=== PATIENT | male | born 1965 | race Caucasian/White ===

== ENCOUNTER 2017-09-20 08:27 | Emergency (ER) | payer OTHER ==
--- OUTSIDE RECORDS SUMMARY | 2017-09-20 08:30 | XMS REPORT | Clinical Summary ---
:1965 Author Organization [facility] Address [address] [place] [address] Phone Care Team Providers Name Role Phone Unavailable Primary Care Provider Unavailable Allergies No Known Allergies Current Medications Prescription Sig. Disp. Refills Start End Date Status Date ethambutol Take 1,200 mg by Active (MYAMBUTOL) 400 MG mouth daily. tablet fLUoxetine (PROZAC) Take 20 mg by Active 20 MG capsule mouth daily. furosemide (LASIX) Take 40 mg by Active 40 MG tablet mouth daily. albuterol HFA Inhale 2 puffs by Active (VENTOLIN HFA) 90 mouth via inhaler mcg/actuation every 6 (six) inhaler hours as needed for Wheezing. rifAMPin (RIFADIN) Take 600 mg by Active 300 MG capsule mouth daily. insulin detemir To use 50 units 45 mL 0 Active (LEVEMIR FLEXPEN) bid. 7 100 unit/mL (3 mL) InPn injection insulin lispro To use from 8 to 45 mL 3 Active (HUMALOG KWIKPEN) 22 units three 7 100 unit/mL InPn times a day. pen needle, To use 6 a day. 600 each 3 Active diabetic 31 gauge x 7 5/16" Ndle blood-glucose meter Use as instructed 400 each 3 11/08/19 Active kit Glucometer Test strips to use 4 a day # 400 Refills x 3 7 18 Lancets to use 4 a day # 400 Refills x 3. aspirin 81 MG Take 1 tablet (81 30 tablet 1 11/09/19 Active chewable tablet mg total) by mouth 7 18 daily. atorvastatin Take 1 tablet (40 30 tablet 1 11/09/19 Active (LIPITOR) 40 MG mg total) by mouth 7 18 tablet nightly. losartan (COZAAR) Take 1 tablet (25 30 tablet 1 11/09/19 Active 25 MG tablet mg total) by mouth 7 18 daily. metoprolol Take 1 tablet (25 60 tablet 1 11/09/19 Active (LOPRESSOR) 25 MG mg total) by mouth 7 18 tablet 2 (two) times daily. sacubitril-valsarta Take 1 tablet by 11/09/19 Discontinued n (ENTRESTO) 49-51 mouth 2 (two) 17 mg Tab times daily. insulin 70/30, Inject 20 Units 11/09/19 Discontinued insulin NPH-insulin subcutaneously 2 17 regular, (HUMULIN (two) times daily 70/30,NOVOLIN before meals. 70/30) 100 unit/mL (70-30) injection spironolactone Take 25 mg by 11/09/19 Discontinued (ALDACTONE) 25 MG mouth daily. 17 tablet metoprolol Take 25 mg by 11/09/19 Discontinued (TOPROL-XL) 25 MG mouth 2 (two) 17 24 hr tablet times daily. acetaminophen-codei Take 1 tablet by 30 tablet 0 11/19/19 ne (TYLENOL #3) mouth every 4 7 17 300-30 mg per (four) hours as tablet needed for up to 10 days. Max Daily Amount: 6 tablets Active Problems Problem Noted Date Urinary retention 11/03/2016 Hemothorax on left 11/02/2016 Peripheral vasodilation ([facility]) 11/02/2016 CAD (coronary artery disease) 11/01/2016 S/P CABG x 4 11/01/2016 Shock circulatory ([facility]) 11/01/2016 Sinus bradycardia 11/01/2016 Acute postoperative pain 11/01/2016 Acute blood loss anemia 11/01/2016 Acute pulmonary insufficiency following thoracic surgery ([facility]) 11/01/2016 Hypovolemia 11/01/2016 Hyperglycemia 11/01/2016 Coronary artery disease involving [place] coronary artery of [place] heart 10/27 without angina pectoris S/P carotid endarterectomy 10/27/2016 Systolic congestive heart failure ([facility]) 10/27/2016 S/P coronary artery stent placement 10/27/2016 Cardiomyopathy ([facility]) 10/27/2016 Essential hypertension 10/27/2016 Insulin dependent diabetes mellitus (HCC) 10/27/2016 COPD (chronic obstructive pulmonary disease) ([facility]) 10/27/2016 Current every day smoker 10/27/2016 Encounters Date Type Specialty Care Team Description 11/02/2016 Orders Only General Internal Medicine 11/01/2016 - Hospital Encounter Cardiology Jame Hurley Viral cardiomyopathy 11/08/2016 MD [place] ([facility]);Acute blood loss anemia;Acute postoperative pain;Acute pulmonary insufficiency following thoracic surgery ([facility]);Coronary artery disease involving [place] coronary artery of [place] heart with unstable angina pectoris (HCC);Chronic obstructive pulmonary disease, unspecified COPD type ([facility]);Current every day smoker;Hyperglycemia;H ypovolemia;Insulin dependent diabetes mellitus (HCC);S/P CABG x 4 11/01/2016 Orders Only General Internal Medicine 11/01/2016 Surgery Jame Hurely BYPASS,AORTO CORONARY MD [place] PATSY/SVG 10/26/2016 Hospital Encounter Jame Hurley MD 10/26/2016 Office Visit Cardiology Jame Hurley artery MD [place] disease involving [place] heart without angina pectoris, unspecified vessel or lesion type (Primary Dx);Chronic systolic congestive heart failure (HCC);Essential hypertension;Coronary artery disease involving [place] coronary artery of [place] heart without angina pectoris;S/P carotid endarterectomy;Systoli c congestive heart failure, unspecified congestive heart failure chronicity (HCC);S/P coronary artery stent placement 10/26/2016 Anesthesia Event Butch Sr AA 10/26/2016 Orders Only Cardiology Jame Hurley MD disease involving [place] heart without angina pectoris, unspecified vessel or lesion type;Chronic systolic congestive heart failure (HCC);Essential hypertension 10/26/2016 Orders Only General Internal Medicine after 09/19/2016 Social History Tobacco Use Types Packs/Day Years Used Date Current Every Day Smoker 0.5 30 Smokeless Tobacco: Former User Alcohol Use Drinks/Week oz/Week Comments No Sex Assigned at Date Recorded Not on file Last Filed Vital Signs Vital Sign Reading Time Taken Blood Pressure 125/60 11/08/2016 11:48 AM CDT Pulse 68 11/08/2016 11:48 AM CDT Temperature 36.2 C (97.2 F) 11/08/2016 11:48 AM CDT Respiratory Rate 18 11/08/2016 11:48 AM CDT Oxygen Saturation 93% 11/08/2016 11:48 AM CDT Inhaled Oxygen Concentration - - Weight 93.2 kg (205 lb 8 oz) 11/08/2016 2:14 AM CDT Height 177.8 cm (5' 10") 11/01/2016 6:00 AM CDT Body Mass Index 29.49 11/08/2016 2:14 AM CDT Plan of Treatment Health Maintenance Due Date Last Done Comments INFLUENZA VACCINE 03/20/2017 Procedures Procedure Name Priority Date/Time Associated Diagnosis Comments ENDARTERECTOMY,CORONARY 11/01/2016 8:00 AM CAOD CDT ENDOSCOPIC HARVEST,VEIN 11/01/2016 8:00 AM CAOD CDT BYPASS,AORTO CORONARY 11/01/2016 8:00 AM CAOD PATSY/SVG CDT after 09/19/2016 Results RHYTHM STRIP - SCAN (12/16/2016 9:11 AM)Only the most recent of2 resultswithin the time period is included.VASCULAR DIAGRAM -SCAN (11/09/2016 10:22 AM)POC- Glucose meter (11/08/2016 11:49 AM)Only the most recent of49 resultswithin the time period is included. Component Value Ref Range POC-Glucose Meter 297 (H)Comment: TESTED AT [address] 70 - 110 mg/[place] [address] Specimen Performing Laboratory Blood [address] [address] CBC (Hemogram only) (11/08/2016 4:45 AM)Only the most recent of3 resultswithin the time period is included. Component Value Ref Range WBC 7.3 4.0 - 10.0 K/L RBC 2.67 (L) 4.20 - 5.80 M/L Hemoglobin 8.5 (L) 13.0 - 16.8 GM/DL Hematocrit 24.8 (L) 40.0 - 50.0 % MCV 92.9 82.0 - 98.0 fL MCH 31.6 27.0 - 33.0 pg MCHC 34.0 32.0 - 36.0 GM/DL RDW 15.7 (H) 10.3 - 14.2 % Platelets 274 150 - 430 K/CU MM MPV 7.3 6.5 - 10.5 fL nRBC 0 0 - 0 /100 WBC Specimen Performing Laboratory Blood - Arm, Right [facility] [address] [place] [address] Narrative 0.00 Magnesium (11/08/2016 4:45 AM)Only the most recent of8 resultswithin the time period is included. Component Value Ref Range Magnesium 2.1 1.6 - 2.6 mg/dL Specimen Performing Laboratory Blood - Arm, [address] [address] Basic Metabolic Panel (11/08/2016 4:45 AM)Only the most recent of9 resultswithin the time period is included. Component Value Ref Range Sodium 137 136 - 145 meq/L Potassium 4.2 3.5 - 5.1 meq/L Chloride 100 98 - 107 meq/L CO2 28 22 - 29 meq/L BUN 18 7 - 21 mg/dL Creatinine 0.83 0.57 - 1.25 mg/dL Glucose 234 (H) 70 - 105 mg/dL Calcium 8.4 8.4 - 10.2 mg/dL EGFR 97Comment: ESTIMATED GFR IS NOT ACCURATE mL/min/1.73 sq m CREATININE CLEARANCE IN PREDICTING GLOMERULAR FILTRATION RATE. ESTIMATED GFR IS NOT APPLICABLE FOR DIALYSIS PATIENTS. Specimen Performing Laboratory Blood - Arm, [address] [address] Urinalysis w/Microscopic (11/07/2016 5:49 AM) Component Value Ref Range Color, UA Light Yellow Clarity, UA Clear Specific [place], UA 1.005 1.001 - 1.035 pH, UA 5.0 5.0 - 8.0 Protein, UA Negative Negative Glucose, UA Negative Negative Ketones, UA Negative Negative Bilirubin, UA Negative Negative Blood, UA Negative Negative Nitrite, UA Negative Negative Leukocytes, UA Small (A) Negative Urobilinogen, UA 0.2 0.2 - 1.0 mg/dL RBC, UA <1 /HPF WBC, UA 7 /HPF Squam Epithel, UA 2 /HPF Specimen Source Specimen Performing Laboratory Urine [address] [address] Prepare RBC (11/06/2016 5:51 PM) Component Value Ref Range Status CANCELED Blood Bank Product RED BLOOD CELLS CROSSMATCH COMPATIBLE Unit ABO A Pos UNIT NUMBER [id number]^RBC LEUKOREDUCED Status TRANSFUSED Blood Bank Product RED BLOOD CELLS PRODUCT CODE [id number] Specimen Performing Laboratory SAFETRACE [place] XR chest PA or AP 1 view in dept (11/06/2016 3:37 PM) Specimen Performing Laboratory GE RIS Narrative FINAL REPORT AP view of the chest dated 11/06/2016 COMPARISON: November 03, 2016 CLINICAL INFORMATION: SOB Comment:Heart is enlarged. There is prior sternotomy and bypass surgery. Pulmonary vasculature is unremarkable. Subsegmental atelectasis is seen in the left upper and lower lobe. The rest of the lungs are clear. No pulmonary infiltrate or pleural effusion is present. Previously noted right IJ central venous catheter and left chest tube have been removed. No pneumothorax is noted. Signed: Ezequiel Doherty MD Report Verified Date/Time:11/06/2016 16:53:27 Reading Location: [facility] [id number] Ortho Consult Reading Room Procedure Note Interface, External Ris In - 11/06/2016 4:55 PM CDT FINAL REPORT AP view of the chest dated 11/06/2016 COMPARISON: November 03, 2016 CLINICAL INFORMATION: SOB Comment: Heart is enlarged. There is prior sternotomy and bypass surgery. Pulmonary vasculature is unremarkable. Subsegmental atelectasis is seen in the left upper and lower lobe. The rest of the lungs are clear. No pulmonary infiltrate or pleural effusion is present. Previously noted right IJ central venous catheter and left chest tube have been removed. No pneumothorax is noted. Signed: Ezequiel Doherty MD Report Verified Date/Time: 11/06/2016 16:53:27 Reading Location: [facility] [id number] Ortho Consult Reading Room Prepare leuko-red RBC (11/06/2016 12:37 PM) Component Value Ref Range Unit ABO A Pos UNIT NUMBER [id number]^RBC LEUKOREDUCED Status READY Blood Bank Product RED BLOOD CELLS PRODUCT CODE [id number] CROSSMATCH COMPATIBLE Specimen Performing Laboratory Other [place] CBC with platelet count + automated diff (11/05/2016 3:33 AM)Only the most recent of6 resultswithin the time period is included. Component Value Ref Range WBC 6.9 4.0 - 10.0 K/L RBC 2.36 (L) 4.20 - 5.80 M/L Hemoglobin 7.8 (L) 13.0 - 16.8 GM/DL Hematocrit 21.7 (L) 40.0 - 50.0 % MCV 91.6 82.0 - 98.0 fL MCH 32.9 27.0 - 33.0 pg MCHC 35.9 32.0 - 36.0 GM/DL RDW 14.7 (H) 10.3 - 14.2 % Platelets 192 150 - 430 K/CU MM MPV 7.4 6.5 - 10.5 fL nRBC 0 0 - 0 /100 WBC % Neutros 67 % % Lymphs 23 % % Monos 7 % % Eos 4 % % Baso 1 % # Neutros 4.61 1.80 - 8.00 K/L # Lymphs 1.56 1.48 - 4.50 K/L # Monos 0.46 0.00 - 1.30 K/L # Eos 0.24 0.00 - 0.50 K/L # Baso 0.04 0.00 - 0.20 K/L Specimen Performing Laboratory Blood - Arm, [place] [id number] Narrative 0.00 CBC with platelet count + automated diff (11/05/2016 3:33 AM)Only the most recent of6 resultswithin the time period is included. Specimen Performing Laboratory Blood Narrative The following orders were created for panel order CBC with platelet count + automated diff. Procedure Abnormality Status --------- ------ CBC with platelet count ...[[id number]]AbnormalFinal result Please view results for these tests on the individual orders. 2D Echo W/Doppler(CW/PW/Color) (11/03/2016 3:08 PM) Specimen Performing Laboratory DIGISONICS Narrative Echocardiography Laboratory [address] [place] [address] Voice:[phone] Transthoracic Echocardiogram Pat.Name:SARAN MARGARITA ROD DOPat.ID:[id number] St.Date: 11/03/2016 Refer.MD:FEGHALI, SAYED SAMI Exam Time: 3:08:00 PMStudy Type:Echo Complete Height:70inWeight:200lb BSA: 2.09 m2 DOBAge:1965,51Y Sex: MALEBP:132/56 HR:70 bpmSonogrphr: Ileana Bruce JOSEPHINE Pat. Stat.:Inpatient Room:[facility] Reason for Study:Hypotension or hemodynamic instability History / Clinical:Chest pain, Congestive Heart Failure, COPD, Coronary artery disease, Diabetes, Dyspnea on exertion, Hyperlipidemia, Hypertension, Myocardial infarction, Shortness of breath, Smoker Procedures:2D ECHO W/ DOPPLER (CW/PW/COLOR), Definity contrast done Race: SUMMARY: Technically difficult exam. The LV endocardum is partially visualized by limited parasternal and limited apical views. LV endocardium is partiallyvisualized withIV contrast. Left ventricular chamber size (by PSLAX dimension) is normal (male - LVIDd4.2-5.8 cm). The following segment(s) appear akinetic: mid anterior, mid anteroseptal and all apical segments.. Estimated LVEF by qualitative assessment is moderately reduced (35-39%). The right ventricular chamber size and systolic function are within normal limits. Unable to estimate peak systolic PA pressure; inadequate TR velocity signal. The estimated RA pressure by IVC dynamics 5-10 mmHg. FINDINGS: LV: The LV endocardum is partially visualized by limited parasternaland limited apical views. Mild concentric LV hypertrophy.Left ventricular chamber size (by PSLAX dimension)is normal (male - LVIDd4.2-5.8 cm). Estimated LVEFby qualitative assessment is moderately reduced (35-39%).LV endocardium is partiallyvisualized with IV contrast.The following segment(s) appear akinetic: mid anterior,mid anteroseptal and all apical segments.. The othersegments are mildly hypokinetic. LA: LA size is normal (16-34 ml/m2). RV: The right ventricular chamber size and systolic function are withinnormal limits. RA: RA cavity size is normal. AV: Mild AoV cusp thickening. MV: Mild MV leaflet thickening. TV: TV is not well visualized. Unable to estimate peak systolic PApressure; inadequate TR velocity signal. PV: PV is not well visualized; function appears normal by Dopplervisualized. AO: Aortic root size (Sinus of Valsalva diameter) is normal. Systemic Veins: The estimated RA pressure by IVC dynamics 5-10 mmHg. Quality:Technically difficult exam. MEASUREMENTS: 2D LA Sng Plane LA Vol69.8 mlIndex 33.4 ml/m2 LA Area 21.5 cm2(8.8-23.4) Parasternal [place] Ao An 2.17 cm (1.4-2.6) LV%fs 36.6 %(25-46) Ao Rtd 3.4 cmLVPWd 1.22 cm IVSd1.41 cm LA Ds 4.85 cm (2.3-3.9)* LVIDd 5.58 cm (4.3-5.1)* LV Wmn 1.31 cm LVIDs 3.54 cm (2-4) Signed 11/04/2016 08:39 AM Yefri Skinner M.D. Procedure Note Interface, External Ris In - 11/04/2016 8:40 AM CDT Echocardiography Laboratory [address] [place] [id number] Voice: [phone] Transthoracic Echocardiogram Pat.Name: SARAN MARGARITA ROD DOPat.ID: [id number] .Date: 11/03/2016 Refer.MD: CANELO HERNANDEZ Exam Time: 3:08:00 PM Study Type:Echo Complete Height: 70in Weight: 200lb BSA: 2.09 m2 Age: 11 1965,51Y Sex: MALE BP: 132/56 HR: 70 bpm Sonogrphr: Ileana Bruce [facility] Pat. Stat.:Inpatient Room: [facility] Reason for Study:Hypotension or hemodynamic instability History / Clinical:Chest pain, Congestive Heart Failure, COPD, Coronary artery disease, Diabetes, Dyspnea on exertion, Hyperlipidemia, Hypertension, Myocardial infarction, Shortness of breath, Smoker Procedures:2D ECHO W/ DOPPLER (CW/PW/COLOR), Definity contrast done Race: SUMMARY: Technically difficult exam. The LV endocardum is partially visualized by limited parasternal and limited apical views. LV endocardium is partially visualized with IV contrast. Left ventricular chamber size (by PSLAX dimension) is normal (male - LVIDd 4.2-5.8 cm). The following segment(s) appear akinetic: mid anterior, mid anteroseptal and all apical segments.. Estimated LVEF by qualitative assessment is moderately reduced (35-39%). The right ventricular chamber size and systolic function are within normal limits. Unable to estimate peak systolic PA pressure; inadequate TR velocity signal. The estimated RA pressure by IVC dynamics 5-10 mmHg. FINDINGS: LV: The LV endocardum is partially visualized by limited parasternal and limited apical views. Mild concentric LV hypertrophy. Left ventricular chamber size (by PSLAX dimension) is normal (male - LVIDd 4.2-5.8 cm). Estimated LVEF by qualitative assessment is moderately reduced (35-39%). LV endocardium is partially visualized with IV contrast. The following segment(s) appear akinetic: mid anterior, mid anteroseptal and all apical segments.. The other segments are mildly hypokinetic. LA: LA size is normal (16-34 ml/m2). RV: The right ventricular chamber size and systolic function are within normal limits. RA: RA cavity size is normal. AV: Mild AoV cusp thickening. MV: Mild MV leaflet thickening. TV: TV is not well visualized. Unable to estimate peak systolic PA pressure; inadequate TR velocity signal. PV: PV is not well visualized; function appears normal by Doppler visualized. AO: Aortic root size (Sinus of Valsalva diameter) is normal. Systemic Veins: The estimated RA pressure by IVC dynamics 5-10 mmHg. Quality: Technically difficult exam. MEASUREMENTS: 2D LA Sng Plane LA Vol 69.8 ml Index 33.4 ml/m2 LA Area 21.5 cm2 (8.8-23.4) Parasternal [place] Ao An 2.17 cm (1.4-2.6) LV%fs 36.6 % (25-46) Ao Rtd 3.4 cm LVPWd 1.22 cm IVSd 1.41 cm LA Ds 4.85 cm (2.3-3.9)* LVIDd 5.58 cm (4.3-5.1)* LV Wmn 1.31 cm LVIDs 3.54 cm (2-4) Signed 11/04/2016 08:39 AM Yefri Skinner M.D. XR chest 1 view portable / bedside (11/03/2016 4:21 AM)Only the most recent of3 resultswithin the time period is included. Specimen Performing Laboratory GE RIS Impressions : Support Lines: Stable. Lungs and pleura: Unchanged airspace and pleural opacities. No pneumothorax. Heart and mediastinum: Stable contours. Stable surgical changes. Additional findings: None. Signed: JR Galileo, Priscilla CRISTINA Report Verified Date/Time:11/03/2016 04:51:34 Reading Location: [facility] Trans[facility] Reading Room Narrative FINAL REPORT RAD, CHEST, 1 VIEW, NON DEPT INDICATION: chest tubes in place, s/p cabg COMPARISON: Prior day's exam FINDINGS: Portable frontal view of the chest. Procedure Note Interface, External Ris In - 11/03/2016 4:53 AM CDT FINAL REPORT RAD, CHEST, 1 VIEW, NON DEPT INDICATION: chest tubes in place, s/p cabg COMPARISON: Prior day's exam FINDINGS: Portable frontal view of the chest. IMPRESSION : Support Lines: Stable. Lungs and pleura: Unchanged airspace and pleural opacities. No pneumothorax. Heart and mediastinum: Stable contours. Stable surgical changes. Additional findings: None. Signed: JR Gurrola Robert MD Report Verified Date/Time: 11/03/2016 04:51:34 Reading Location: [address] Transitional Reading Room 12 lead (11/02/2016 5:35 PM)Only the most recent of3 resultswithin the time period is included. Specimen Performing Laboratory GE MUSE Narrative Ventricular Rate 80 BPM Atrial Rate 80 BPM P-R Interval 112 ms QRS Duration 104 ms Q-T Interval 384 ms QTC Calculation(Bazett) 442 ms P [place] 60 degrees R [place] -3 degrees T [place] 61 degrees Normal sinus rhythm Inferior infarct (cited on or before 01-NOV-2016) T wave abnormality, consider lateral ischemia Abnormal ECG When compared with ECG of 01-NOV-2016 18:15, T wave inversion more evident in Lateral leads Confirmed by Jacki Solo Alireaz ([id number]) on 11/03/2016 1:21:49 PM Procedure Note Interface, External Ris In - 11/03/2016 1:21 PM CDT Ventricular Rate 80 BPM Atrial Rate 80 BPM P-R Interval 112 ms QRS Duration 104 ms Q-T Interval 384 ms QTC Calculation(Bazett) 442 ms P [place] 60 degrees R [place] -3 degrees T [place] 61 degrees Normal sinus rhythm Inferior infarct (cited on or before 01-NOV-2016) T wave abnormality, consider lateral ischemia Abnormal ECG When compared with ECG of 01-NOV-2016 18:15, T wave inversion more evident in Lateral leads Confirmed by Jacki Solo Alireaz ([id number]) on 11/03/2016 1:21:49 PM Glucose-Stat Lab (11/01/2016 4:54 PM)Only the most recent of7 resultswithin the time period is included. Component Value Ref Range Glucose 108 70 - 110 mg/dL Specimen Performing Laboratory Blood, Arterial [address] [address] HGB/HCT (H&H)-Stat Lab (11/01/2016 4:54 PM)Only the most recent of7 resultswithin the time period is included. Component Value Ref Range Hemoglobin 9.0 (L) 13.0 - 16.8 g/dL Hematocrit 26.0 (L) 40.0 - 50.0 % Specimen Performing Laboratory Blood, Arterial [address] [address] Blood gas, arterial (11/01/2016 4:54 PM)Only the most recent of7 resultswithin the time period is included. Component Value Ref Range pH, Arterial 7.37 7.35 - 7.45 pCO2, Arterial 42 35 - 45 mmHg pO2, Arterial 101 (H) 80 - 90 mmHg O2 Sat, Arterial 97.5 (H) 96.0 - 97.0 % HCO3, Arterial 24 21 - 29 mmol/L Base Excess, Arterial -1.7 -2.0 - 3.0 mmol/L Patient Temperature 36.9 C FIO2 36.0 % Specimen Performing Laboratory Blood, Arterial [address] [address] Potassium-STAT (11/01/2016 2:33 PM) Component Value Ref Range Potassium 4.0 3.5 - 5.1 meq/L Specimen Performing Laboratory Blood - Line, Arterial [address] [address] Oxygen saturation, measured (11/01/2016 11:52 AM) Component Value Ref Range O2 Saturation (Measured) 74.7 % Specimen Performing Laboratory Blood [address] [address] Lactic acid, arterial, whole blood (11/01/2016 11:50 AM) Component Value Ref Range Lactate, Art 1.4Comment: Specimen slightly hemolyzed 0.5 - 2.2 mmol/L Specimen Performing Laboratory Blood, Arterial [address] [address] Narrative Effective 10/22/2015: Units/Reference Range Change New: 0.5-2.2 mmol/LPrevious: 5-20 mg/dL aPTT (11/01/2016 11:50 AM)Only the most recent of2 resultswithin the time period is included. Component Value Ref Range PTT 33.1 22.5 - 36.0 seconds Specimen Performing Laboratory Blood [address] [address] Prothrombin time/INR (11/01/2016 11:50 AM)Only the most recent of2 resultswithin the time period is included. Component Value Ref Range Protime 16.4 (H) 11.7 - 14.7 seconds INR 1.3 <=5.9 Specimen Performing Laboratory Blood [address] [address] Narrative RECOMMENDED COUMADIN/WARFARIN INR THERAPY RANGES STANDARD DOSE: 2.0 - 3.0 Includes: PROPHYLAXIS for venous thrombosis, systemic embolization; TREATMENT for venous thrombosis and/or pulmonary embolus. HIGH RISK: Target INR is 2.5-3.5 for patients with mechanical heart valves. Fibrinogen (11/01/2016 11:50 AM)Only the most recent of2 resultswithin the time period is included. Component Value Ref Range Fibrinogen 279 225 - 434 mg/dl Specimen Performing Laboratory Blood [address] [address] Potassium-Stat Lab (11/01/2016 11:45 AM)Only the most recent of6 resultswithin the time period is included. Component Value Ref Range Potassium 4.1 3.6 - 5.5 meq/L Specimen Performing Laboratory Blood, Arterial - Line, Arterial [address] [address] Calcium, Ionized (11/01/2016 11:45 AM)Only the most recent of4 resultswithin the time period is included. Component Value Ref Range Calcium, Ion 1.17 1.12 - 1.27 mmol/L pH, Blood 7.29 Specimen Performing Laboratory Blood - Line, Arterial [address] [address] Tissue Exam (11/01/2016 11:02 AM) Component Value Ref Range Case Report Surgical Pathology Report Case: [id number] Authorizing Provider:Jame Hurley MDCollected: 11/01/2016 1102 Ordering Location: [facility] Received: 11/01/2016 1336 PERIOPERATIVE SERVICES Pathologist: Ian Wang MD Specimen:Plaque, RCA PLAQUE DIAGNOSIS HEART, CORONARY ARTERY, RIGHT, ATHERECTOMY: CALCIFIC ATHEROSCLEROTIC PLAQUE CPT Code(s) 62456; 46433 CLINICAL HISTORY CAOD SPECIMEN SOURCE RCA plaque GROSS DESCRIPTION The specimen is received in saline labeled with the patient's information labeled "RCA plaque" and consists of a calcified tubular-shaped segment of tissue measuring 10.5 cm in length x 0.4 cm in diameter. Representatively submitted A1 for decalcification. CG/pl MICROSCOPIC DESCRIPTION Performed Specimen Performing Laboratory Tissue - Plaque [address] [address] [facility] (ABG,NA,K,H&H,GLUCOSE) (11/01/2016 10:36 AM)Only the most recent of5 resultswithin the time period is included. Specimen Performing Laboratory Blood, Arterial Narrative The following orders were created for panel order [facility] (ABG,NA,K,H&H,GLUCOSE). Procedure Abnormality Status --------- ------ Blood gas, arterial[[id number]]AbnormalFinal result Sodium Na-Stat Lab[[id number]] AbnormalFinal result Potassium-Stat Lab[[id number]] NormalFinal result Glucose-Stat Lab[[id number]] AbnormalFinal result HGB/HCT (H&H)-Stat Lab[[id number]] AbnormalFinal result Please view results for these tests on the individual orders. Sodium Na-Stat Lab (11/01/2016 10:36 AM)Only the most recent of5 resultswithin the time period is included. Component Value Ref Range Sodium 132 (L) 135 - 148 meq/L Specimen Performing Laboratory Blood, Arterial [address] [place] [address] POC ACTIVATED CLOTTING TIME (11/01/2016 10:06 AM)Only the most recent of4 resultswithin the time period is included. Component Value Ref Range Activated Clotting Time 121Comment: TESTED AT [address] [place] [id number] Specimen Performing Laboratory [address] [address] Thromboelastograph (TEG) (11/01/2016 10:05 AM) Component Value Ref Range TEG Activated Clotting Time 4.4 4.0 - 7.0 minutes TEG Fibrinogen Activity 71.9 61.0 - 73.0 degrees TEG Platelet Aggregation 47.5 (L) 55.0 - 65.0 MM TEG-H Activated Clotting Time 5.3 4.0 - 7.0 minutes TEG-H Fibrinogen Activity 68.1 61.0 - 73.0 degrees TEG-H Platelet Aggregation 50.1 (L) 55.0 - 65.0 MM Specimen Performing Laboratory [address] [address] Platelet count (11/01/2016 10:05 AM) Component Value Ref Range Platelets 114 (L) 150 - 430 K/CU MM Specimen Performing Laboratory [address] [address] Blood gas, venous (11/01/2016 9:22 AM) Component Value Ref Range pH, Hakeem 7.33 7.32 - 7.42 pCO2, Hakeem 49 41 - 51 mmHg pO2, Hakeem 44 (H) 25 - 40 mmHg O2 Sat, Hakeem 89.4 (H) 40.0 - 70.0 % HCO3, Hakeem 28 21 - 29 mmol/L Base Excess, Hakeem -0.1 -2.0 - 3.0 mmol/L Patient Temperature 31.0 C FIO2 70.0 % Specimen Performing Laboratory [address] [address] XR chest 2 views (10/26/2016 9:51 AM) Specimen Performing Laboratory GE RIS Narrative FINAL REPORT CLINICAL HISTORY: Pre-Op coronary artery disease, angina TECHNIQUE: 2 views of the chest COMPARISON: None IMPRESSION: There is a somewhat focal 3 cm nodular opacity in the lingula or left lower lobe. There is a 6 cm left apical bulla or cavitary lesion with wall thickening. The right lung is free of infiltrates or effusions. The heart is not enlarged. Clinical correlation is requested with chest CT if warranted. Signed: Mya Mendoza MD Report Verified Date/Time:10/26/2016 11:14:51 Reading Location: [facility] Radiology Reading Room Procedure Note Interface, External Ris In - 10/26/2016 11:17 AM CDT FINAL REPORT CLINICAL HISTORY: Pre-Op coronary artery disease, angina TECHNIQUE: 2 views of the chest COMPARISON: None IMPRESSION: There is a somewhat focal 3 cm nodular opacity in the lingula or left lower lobe. There is a 6 cm left apical bulla or cavitary lesion with wall thickening. The right lung is free of infiltrates or effusions. The heart is not enlarged. Clinical correlation is requested with chest CT if warranted. Signed: Mya Mendoza MD Report Verified Date/Time: 10/26/2016 11:14:51 Reading Location: [facility] Radiology Reading Room Type and screen, automated (10/26/2016 9:10 AM) Component Value Ref Range ABO/RH AUTOMATED (BEAKER) A POSITIVE Ab Scrn NEGATIVE Specimen Performing Laboratory Blood [address] [address] PT/aPTT (10/26/2016 9:10 AM) Component Value Ref Range Protime 12.4 11.7 - 14.7 seconds INR 0.9 <=5.9 PTT 27.5 22.5 - 36.0 seconds Specimen Performing Laboratory Blood [address] [address] Narrative RECOMMENDED COUMADIN/WARFARIN INR THERAPY RANGES STANDARD DOSE: 2.0 - 3.0 Includes: PROPHYLAXIS for venous thrombosis, systemic embolization; TREATMENT for venous thrombosis and/or pulmonary embolus. HIGH RISK: Target INR is 2.5-3.5 for patients with mechanical heart valves. Hemoglobin A1c (10/26/2016 9:10 AM) Component Value Ref Range Hemoglobin A1C 15.1 (H) 4.3 - 6.1 % Specimen Performing Laboratory Blood [facility] [address] [place] [address] after 09/19/2016
--- OUTSIDE RECORDS SUMMARY | 2017-09-20 08:32 | XMS REPORT ---
:1965 [facility] Address [phone] Care Team Providers Name Role Phone YAMILETYRONN BRAULIO Unavailable Unavailable Problems This patient has no known problems. Allergies, Adverse Reactions, Alerts This patient has no known allergies or adverse reactions. Medications This patient has no known medications. Results Test Description Test Time Test Comments Text Results Atomic Results Result Comments POCT-GLUCOSE METER 2016-11-08 11:54:00 Test Item Value Reference Range Comments POC-GLUCOSE METER (BEAKER) (test 297 mg/dL 70-110 TESTED AT [facility] [address] [facility] vknk=0460) [facility] [address] POCT-GLUCOSE [id number] 08:49:00 Test Item Value Reference Range Comments POC-GLUCOSE METER (BEAKER) 250 mg/dL 70-110 TESTED AT [facility] [address] [place] [address] (test tjbx=0748) [facility] [address] CBC (HEMOGRAM ONLY)2016-11-08 07:15:00 Test Item Value Reference Range Comments WHITE BLOOD CELL COUNT (BEAKER) (test toyx=656) 7.3 K/ L 4.0-10.0 RED BLOOD CELL COUNT (BEAKER) (test dmvl=032) 2.67 M/ L 4.20-5.80 HEMOGLOBIN (BEAKER) (test mmps=610) 8.5 GM/DL 13.0-16.8 HEMATOCRIT (BEAKER) (test smlu=710) 24.8 % 40.0-50.0 MEAN CORPUSCULAR VOLUME (BEAKER) (test hmsv=543) 92.9 fL 82.0-98.0 MEAN CORPUSCULAR HEMOGLOBIN (BEAKER) (test 31.6 pg 27.0-33.0 mxex=936) MEAN CORPUSCULAR HEMOGLOBIN CONC (BEAKER) (test 34.0 GM/DL 32.0-36.0 nilv=340) RED CELL DISTRIBUTION WIDTH (BEAKER) (test 15.7 % 10.3-14.2 muov=109) PLATELET COUNT (BEAKER) (test knob=046) 274 K/CU MM 150-430 MEAN PLATELET VOLUME (BEAKER) (test zghy=523) 7.3 fL 6.5-10.5 NUCLEATED RED BLOOD CELLS (BEAKER) (test 0 /100 WBC 0-0 xosi=462) [id number] 06:58:00 Test Item Value Reference Range Comments MAGNESIUM (BEAKER) (test hmln=718) 2.1 mg/dL 1.6-2.6 BASIC METABOLIC [id number] 06:58:00 Test Item Value Reference Range Comments SODIUM (BEAKER) (test 137 meq/L 136-145 djyo=607) POTASSIUM (BEAKER) (test 4.2 meq/L 3.5-5.1 diea=379) CHLORIDE (BEAKER) (test 100 meq/L 98-107 cpsi=326) CO2 (BEAKER) (test 28 meq/L 22-29 ichr=246) BLOOD UREA NITROGEN 18 mg/dL 7-21 (BEAKER) (test sppc=532) CREATININE (BEAKER) (test 0.83 mg/dL 0.57-1.25 qfni=893) GLUCOSE RANDOM (BEAKER) 234 mg/dL 70-105 (test bnoc=930) CALCIUM (BEAKER) (test 8.4 mg/dL 8.4-10.2 gram=850) EGFR (BEAKER) (test 97 mL/min/1.73 sq m ESTIMATED GFR IS NOT gxyb=6611) ACCURATE CREATININE CLEARANCE IN PREDICTING GLOMERULAR FILTRATION RATE. ESTIMATED GFR IS NOT APPLICABLE FOR DIALYSIS PATIENTS. POCT-GLUCOSE [id number] 21:04:00 Test Item Value Reference Range Comments POC-GLUCOSE METER (BEAKER) 166 mg/dL 70-110 TESTED AT [address] (test tlbr=4426) [facility] [address] POCT-GLUCOSE [id number] 17:37:00 Test Item Value Reference Range Comments POC-GLUCOSE METER (BEAKER) 153 mg/dL 70-110 TESTED AT [address] (test vkue=8500) [facility] [address] POCT-GLUCOSE [id number] 17:04:00 Test Item Value Reference Range Comments POC-GLUCOSE METER (BEAKER) 106 mg/dL 70-110 TESTED AT [address] (test rfcg=2988) [facility] [address] POCT-GLUCOSE [id number] 15:06:00 Test Item Value Reference Range Comments POC-GLUCOSE METER (BEAKER) 76 mg/dL 70-110 TESTED AT [address] (test zooj=9486) [facility] [address] POCT-GLUCOSE [id number] 12:32:00 Test Item Value Reference Range Comments POC-GLUCOSE METER (BEAKER) 156 mg/dL 70-110 TESTED AT [address] (test zeek=3579) [facility] [address] POCT-GLUCOSE [id number] 08:10:00 Test Item Value Reference Range Comments POC-GLUCOSE METER (BEAKER) 153 mg/dL 70-110 TESTED AT [address] (test vmuv=5480) [facility] [address] URINALYSIS W/ [id number] 07:06:00 Test Item Value Reference Range Comments COLOR (BEAKER) (test mgfm=479) Light Yellow CLARITY (BEAKER) (test tpdl=352) Clear SPECIFIC GRAVITY UA (BEAKER) (test mzsd=147) 1.005 1.001-1.035 PH UA (BEAKER) (test yccp=064) 5.0 5.0-8.0 PROTEIN UA (BEAKER) (test dlnq=271) Negative Negative GLUCOSE UA (BEAKER) (test bjqf=039) Negative Negative KETONES UA (BEAKER) (test vlby=716) Negative Negative BILIRUBIN UA (BEAKER) (test wvpk=211) Negative Negative BLOOD UA (BEAKER) (test tyhw=967) Negative Negative NITRITE UA (BEAKER) (test kdam=744) Negative Negative LEUKOCYTE ESTERASE UA (BEAKER) (test jhar=426) Small Negative UROBILINOGEN UA (BEAKER) (test nmhc=123) 0.2 mg/dL 0.2-1.0 RBC UA (BEAKER) (test ygyn=969) < /HPF WBC UA (BEAKER) (test daly=453) 7 /HPF SQUAMOUS EPITHELIAL (BEAKER) (test xbnv=981) 2 /HPF SOURCE(BEAKER) (test uqma=4266) [id number] 04:51:00 Test Item Value Reference Range Comments MAGNESIUM (BEAKER) (test irkg=170) 1.9 mg/dL 1.6-2.6 BASIC METABOLIC [id number] 04:51:00 Test Item Value Reference Range Comments SODIUM (BEAKER) (test 140 meq/L 136-145 vglw=042) POTASSIUM (BEAKER) (test 4.0 meq/L 3.5-5.1 egfi=727) CHLORIDE (BEAKER) (test 102 meq/L 98-107 lbhr=423) CO2 (BEAKER) (test 31 meq/L 22-29 nxdw=056) BLOOD UREA NITROGEN 16 mg/dL 7-21 (BEAKER) (test ckyz=098) CREATININE (BEAKER) (test 0.78 mg/dL 0.57-1.25 ypnt=394) GLUCOSE RANDOM (BEAKER) 136 mg/dL 70-105 (test djum=198) CALCIUM (BEAKER) (test 8.6 mg/dL 8.4-10.2 axpr=096) EGFR (BEAKER) (test 105 mL/min/1.73 sq m ESTIMATED GFR IS NOT dngs=9587) ACCURATE CREATININE CLEARANCE IN PREDICTING GLOMERULAR FILTRATION RATE. ESTIMATED GFR IS NOT APPLICABLE FOR DIALYSIS PATIENTS. CBC (HEMOGRAM ONLY)2016-11-07 04:41:00 Test Item Value Reference Range Comments WHITE BLOOD CELL COUNT (BEAKER) (test fmjm=609) 6.9 K/ L 4.0-10.0 RED BLOOD CELL COUNT (BEAKER) (test eunv=606) 2.64 M/ L 4.20-5.80 HEMOGLOBIN (BEAKER) (test nxgr=456) 8.3 GM/DL 13.0-16.8 HEMATOCRIT (BEAKER) (test ufrm=643) 24.5 % 40.0-50.0 MEAN CORPUSCULAR VOLUME (BEAKER) (test jokr=206) 92.6 fL 82.0-98.0 MEAN CORPUSCULAR HEMOGLOBIN (BEAKER) (test 31.4 pg 27.0-33.0 lzfm=921) MEAN CORPUSCULAR HEMOGLOBIN CONC (BEAKER) (test 33.9 GM/DL 32.0-36.0 wuqk=589) RED CELL DISTRIBUTION WIDTH (BEAKER) (test 14.5 % 10.3-14.2 ztgl=410) PLATELET COUNT (BEAKER) (test avvk=714) 236 K/CU MM 150-430 MEAN PLATELET VOLUME (BEAKER) (test aesp=007) 7.3 fL 6.5-10.5 NUCLEATED RED BLOOD CELLS (BEAKER) (test 0 /100 WBC 0-0 rehc=502) 0.00POCT-GLUCOSE [id number] 21:36:00 Test Item Value Reference Range Comments POC-GLUCOSE METER (BEAKER) 256 mg/dL 70-110 TESTED AT [address] (test ntak=2612) [place] [id number] POCT-GLUCOSE [id number] 18:23:00 Test Item Value Reference Range Comments POC-GLUCOSE METER (BEAKER) 137 mg/dL 70-110 TESTED AT [address] (test snzw=3115) [place] [address] POCT-GLUCOSE [id number] 17:09:00 Test Item Value Reference Range Comments POC-GLUCOSE METER (BEAKER) 120 mg/dL 70-110 TESTED AT [address] (test dmdh=5184) [facility] [address] POCT-GLUCOSE [id number] 12:21:00 Test Item Value Reference Range Comments POC-GLUCOSE METER (BEAKER) 129 mg/dL 70-110 TESTED AT [address] (test mbcg=5305) [facility] [address] CBC (HEMOGRAM ONLY)2016-11-06 08:00:00 Test Item Value Reference Range Comments WHITE BLOOD CELL COUNT (BEAKER) (test lndz=125) 6.2 K/ L 4.0-10.0 RED BLOOD CELL COUNT (BEAKER) (test bjaz=215) 2.40 M/ L 4.20-5.80 HEMOGLOBIN (BEAKER) (test dlus=271) 7.2 GM/DL 13.0-16.8 HEMATOCRIT (BEAKER) (test rzqr=279) 22.6 % 40.0-50.0 MEAN CORPUSCULAR VOLUME (BEAKER) (test svyz=920) 94.3 fL 82.0-98.0 MEAN CORPUSCULAR HEMOGLOBIN (BEAKER) (test 30.0 pg 27.0-33.0 vgwl=794) MEAN CORPUSCULAR HEMOGLOBIN CONC (BEAKER) (test 31.8 GM/DL 32.0-36.0 dkoy=672) RED CELL DISTRIBUTION WIDTH (BEAKER) (test 14.5 % 10.3-14.2 dmzm=868) PLATELET COUNT (BEAKER) (test xffi=426) 224 K/CU MM 150-430 MEAN PLATELET VOLUME (BEAKER) (test qexs=318) 7.4 fL 6.5-10.5 NUCLEATED RED BLOOD CELLS (BEAKER) (test 0 /100 WBC 0-0 cogn=636) 0.00POCT-GLUCOSE [id number] 07:49:00 Test Item Value Reference Range Comments POC-GLUCOSE METER (BEAKER) 241 mg/dL 70-110 TESTED AT [address] (test qfoq=7870) [place] [address] [id number] 06:49:00 Test Item Value Reference Range Comments MAGNESIUM (BEAKER) (test nfby=306) 2.0 mg/dL 1.6-2.6 BASIC METABOLIC [id number] 06:49:00 Test Item Value Reference Range Comments SODIUM (BEAKER) (test 136 meq/L 136-145 brwr=984) POTASSIUM (BEAKER) (test 4.2 meq/L 3.5-5.1 zfdx=643) CHLORIDE (BEAKER) (test 102 meq/L 98-107 olal=534) CO2 (BEAKER) (test 26 meq/L 22-29 hchd=421) BLOOD UREA NITROGEN 15 mg/dL 7-21 (BEAKER) (test jizx=406) CREATININE (BEAKER) (test 0.76 mg/dL 0.57-1.25 lcux=747) GLUCOSE RANDOM (BEAKER) 221 mg/dL 70-105 (test pkxm=847) CALCIUM (BEAKER) (test 8.4 mg/dL 8.4-10.2 sszi=215) EGFR (BEAKER) (test 108 mL/min/1.73 sq m ESTIMATED GFR IS NOT paui=2591) ACCURATE CREATININE CLEARANCE IN PREDICTING GLOMERULAR FILTRATION RATE. ESTIMATED GFR IS NOT APPLICABLE FOR DIALYSIS PATIENTS. POCT-GLUCOSE [id number] 16:44:00 Test Item Value Reference Range Comments POC-GLUCOSE METER (BEAKER) 144 mg/dL 70-110 TESTED AT [address] (test tkmi=1140) [place] [id number] POCT-GLUCOSE [id number] 15:34:00 Test Item Value Reference Range Comments POC-GLUCOSE METER (BEAKER) 70 mg/dL 70-110 TESTED AT [address] (test ogde=2507) [facility] [address] POCT-GLUCOSE [id number] 15:00:00 Test Item Value Reference Range Comments POC-GLUCOSE METER (BEAKER) 49 mg/dL 70-110 TESTED AT [address] (test icby=2479) [place] [id number] POCT-GLUCOSE [id number] 13:01:00 Test Item Value Reference Range Comments POC-GLUCOSE METER (BEAKER) 202 mg/dL 70-110 TESTED AT [address] (test xdbh=4931) [place] [id number] POCT-GLUCOSE [id number] 08:35:00 Test Item Value Reference Range Comments POC-GLUCOSE METER (BEAKER) 194 mg/dL 70-110 TESTED AT [address] (test zmme=3957) [place] [address] [id number] 04:08:00 Test Item Value Reference Range Comments MAGNESIUM (BEAKER) (test zcve=349) 1.9 mg/dL 1.6-2.6 BASIC METABOLIC [id number] 04:08:00 Test Item Value Reference Range Comments SODIUM (BEAKER) (test 137 meq/L 136-145 kwue=417) POTASSIUM (BEAKER) (test 3.4 meq/L 3.5-5.1 fkwn=711) CHLORIDE (BEAKER) (test 103 meq/L 98-107 znkv=656) CO2 (BEAKER) (test 26 meq/L 22-29 htel=668) BLOOD UREA NITROGEN 19 mg/dL 7-21 (BEAKER) (test bere=788) CREATININE (BEAKER) (test 0.71 mg/dL 0.57-1.25 kmyn=305) GLUCOSE RANDOM (BEAKER) 75 mg/dL 70-105 (test ebwm=434) CALCIUM (BEAKER) (test 8.6 mg/dL 8.4-10.2 lkbb=402) EGFR (BEAKER) (test 117 mL/min/1.73 sq m ESTIMATED GFR IS NOT aoim=5609) ACCURATE CREATININE CLEARANCE IN PREDICTING GLOMERULAR FILTRATION RATE. ESTIMATED GFR IS NOT APPLICABLE FOR DIALYSIS PATIENTS. CBC W/PLT COUNT & AUTO [id number] 04:05:00 Test Item Value Reference Range Comments WHITE BLOOD CELL COUNT (BEAKER) (test csdx=440) 6.9 K/ L 4.0-10.0 RED BLOOD CELL COUNT (BEAKER) (test ilbu=063) 2.36 M/ L 4.20-5.80 HEMOGLOBIN (BEAKER) (test mucl=684) 7.8 GM/DL 13.0-16.8 HEMATOCRIT (BEAKER) (test allw=605) 21.7 % 40.0-50.0 MEAN CORPUSCULAR VOLUME (BEAKER) (test qeow=776) 91.6 fL 82.0-98.0 MEAN CORPUSCULAR HEMOGLOBIN (BEAKER) (test 32.9 pg 27.0-33.0 zmxq=681) MEAN CORPUSCULAR HEMOGLOBIN CONC (BEAKER) (test 35.9 GM/DL 32.0-36.0 icqn=981) RED CELL DISTRIBUTION WIDTH (BEAKER) (test 14.7 % 10.3-14.2 jrqb=503) PLATELET COUNT (BEAKER) (test uwnw=986) 192 K/CU MM 150-430 MEAN PLATELET VOLUME (BEAKER) (test lkni=728) 7.4 fL 6.5-10.5 NUCLEATED RED BLOOD CELLS (BEAKER) (test 0 /100 WBC 0-0 uzae=855) NEUTROPHILS RELATIVE PERCENT (BEAKER) (test 67 % metu=882) LYMPHOCYTES RELATIVE PERCENT (BEAKER) (test 23 % tmtf=884) MONOCYTES RELATIVE PERCENT (BEAKER) (test 7 % jvpf=242) EOSINOPHILS RELATIVE PERCENT (BEAKER) (test 4 % harj=783) BASOPHILS RELATIVE PERCENT (BEAKER) (test 1 % eknz=495) NEUTROPHILS ABSOLUTE COUNT (BEAKER) (test 4.61 K/ L 1.80-8.00 nynh=014) LYMPHOCYTES ABSOLUTE COUNT (BEAKER) (test 1.56 K/ L 1.48-4.50 hazr=459) MONOCYTES ABSOLUTE COUNT (BEAKER) (test 0.46 K/ L 0.00-1.30 qeba=867) EOSINOPHILS ABSOLUTE COUNT (BEAKER) (test 0.24 K/ L 0.00-0.50 nglu=714) BASOPHILS ABSOLUTE COUNT (BEAKER) (test 0.04 K/ L 0.00-0.20 reou=513) 0.00POCT-GLUCOSE [id number] 21:29:00 Test Item Value Reference Range Comments POC-GLUCOSE METER (BEAKER) 140 mg/dL 70-110 TESTED AT [address] (test kefa=3940) [place] [address] POCT-GLUCOSE [id number] 17:57:00 Test Item Value Reference Range Comments POC-GLUCOSE METER (BEAKER) 237 mg/dL 70-110 TESTED AT [address] (test wrmg=6708) [place] [address] TISSUE [id number] 15:18:00Surgical Pathology Report Case: [id number] Authorizing Provider: Braulio Hurley MD Collected: 11/01/2016 1102 Ordering Location: [facility] Received: 11/01/2016 1336 PERIOPERATIVE SERVICES Pathologist: Ian Wang MD Specimen: Plaque, RCA PLAQUE HEART, CORONARY ARTERY, RIGHT, ATHERECTOMY:CALCIFIC ATHEROSCLEROTIC PLAQUEElectronically signed by Ian Wang MDon 11/04/2016 at 3:18 [id number]; [id number] plaqueThe specimen is received in saline labeled with the patient's information labeled "RCA plaque" and consists of a calcified tubular-shaped segment of tissue measuring 10.5 cm in length x 0.4 cm in diameter. Representatively submitted A1 for decalcification. CG/plPerformedPOCT-GLUCOSE [id number] 12:12:00 Test Item Value Reference Range Comments POC-GLUCOSE METER (BEAKER) 90 mg/dL 70-110 TESTED AT [address] (test olfq=9770) [place] [address] POCT-GLUCOSE [id number] 08:56:00 Test Item Value Reference Range Comments POC-GLUCOSE METER (BEAKER) 215 mg/dL 70-110 TESTED AT [address] (test pgqy=9529) [place] [address] [id number] 06:16:00 Test Item Value Reference Range Comments MAGNESIUM (BEAKER) (test hljk=426) 2.1 mg/dL 1.6-2.6 BASIC METABOLIC [id number] 06:16:00 Test Item Value Reference Range Comments SODIUM (BEAKER) (test 136 meq/L 136-145 zzef=858) POTASSIUM (BEAKER) (test 3.6 meq/L 3.5-5.1 rwmt=381) CHLORIDE (BEAKER) (test 102 meq/L 98-107 dvil=551) CO2 (BEAKER) (test 25 meq/L 22-29 erci=989) BLOOD UREA NITROGEN 29 mg/dL 7-21 (BEAKER) (test gngr=906) CREATININE (BEAKER) (test 0.89 mg/dL 0.57-1.25 iyee=660) GLUCOSE RANDOM (BEAKER) 123 mg/dL 70-105 (test vggc=988) CALCIUM (BEAKER) (test 8.7 mg/dL 8.4-10.2 hubx=024) EGFR (BEAKER) (test 90 mL/min/1.73 sq m ESTIMATED GFR IS NOT tvll=4551) ACCURATE CREATININE CLEARANCE IN PREDICTING GLOMERULAR FILTRATION RATE. ESTIMATED GFR IS NOT APPLICABLE FOR DIALYSIS PATIENTS. CBC W/PLT COUNT & AUTO [id number] 05:46:00 Test Item Value Reference Range Comments WHITE BLOOD CELL COUNT (BEAKER) (test vyre=216) 9.1 K/ L 4.0-10.0 RED BLOOD CELL COUNT (BEAKER) (test yhkw=966) 2.59 M/ L 4.20-5.80 HEMOGLOBIN (BEAKER) (test ggac=620) 8.2 GM/DL 13.0-16.8 HEMATOCRIT (BEAKER) (test hpbh=665) 23.6 % 40.0-50.0 MEAN CORPUSCULAR VOLUME (BEAKER) (test lprs=083) 91.4 fL 82.0-98.0 MEAN CORPUSCULAR HEMOGLOBIN (BEAKER) (test 31.8 pg 27.0-33.0 kysm=606) MEAN CORPUSCULAR HEMOGLOBIN CONC (BEAKER) (test 34.7 GM/DL 32.0-36.0 esbp=256) RED CELL DISTRIBUTION WIDTH (BEAKER) (test 14.3 % 10.3-14.2 ulvm=471) PLATELET COUNT (BEAKER) (test ilsi=637) 173 K/CU MM 150-430 MEAN PLATELET VOLUME (BEAKER) (test aaxc=340) 8.3 fL 6.5-10.5 NUCLEATED RED BLOOD CELLS (BEAKER) (test 0 /100 WBC 0-0 orwt=506) NEUTROPHILS RELATIVE PERCENT (BEAKER) (test 75 % diif=894) LYMPHOCYTES RELATIVE PERCENT (BEAKER) (test 15 % hxqr=147) MONOCYTES RELATIVE PERCENT (BEAKER) (test 8 % ophz=843) EOSINOPHILS RELATIVE PERCENT (BEAKER) (test 2 % jjyg=816) BASOPHILS RELATIVE PERCENT (BEAKER) (test 0 % pmmg=861) NEUTROPHILS ABSOLUTE COUNT (BEAKER) (test 6.79 K/ L 1.80-8.00 yxlj=676) LYMPHOCYTES ABSOLUTE COUNT (BEAKER) (test 1.38 K/ L 1.48-4.50 rcwf=171) MONOCYTES ABSOLUTE COUNT (BEAKER) (test 0.71 K/ L 0.00-1.30 cwtb=451) EOSINOPHILS ABSOLUTE COUNT (BEAKER) (test 0.20 K/ L 0.00-0.50 bloi=324) BASOPHILS ABSOLUTE COUNT (BEAKER) (test 0.02 K/ L 0.00-0.20 azqh=055) 0.00POCT-GLUCOSE [id number] 05:03:00 Test Item Value Reference Range Comments POC-GLUCOSE METER (BEAKER) 142 mg/dL 70-110 TESTED AT [address] (test labg=1773) [facility] [address] POCT-GLUCOSE [id number] 20:57:00 Test Item Value Reference Range Comments POC-GLUCOSE METER (BEAKER) 256 mg/dL 70-110 TESTED AT [address] (test mich=4918) [facility] [address] POCT-GLUCOSE [id number] 18:11:00 Test Item Value Reference Range Comments POC-GLUCOSE METER (BEAKER) 243 mg/dL 70-110 TESTED AT [address] (test wryp=3111) [facility] [address] POCT-GLUCOSE [id number] 11:42:00 Test Item Value Reference Range Comments POC-GLUCOSE METER (BEAKER) 158 mg/dL 70-110 TESTED AT [address] (test usfn=5579) [facility] [address] POCT-GLUCOSE [id number] 09:13:00 Test Item Value Reference Range Comments POC-GLUCOSE METER (BEAKER) 163 mg/dL 70-110 TESTED AT [address] (test mvcr=4940) [facility] [address] POCT-GLUCOSE [id number] 09:13:00 Test Item Value Reference Range Comments POC-GLUCOSE METER (BEAKER) 110 mg/dL 70-110 TESTED AT [address] (test kznx=5727) [facility] [address] POCT-GLUCOSE [id number] 06:04:00 Test Item Value Reference Range Comments POC-GLUCOSE METER (BEAKER) 131 mg/dL 70-110 TESTED AT [address] (test hjvz=8067) [facility] [address] [id number] 04:25:00 Test Item Value Reference Range Comments MAGNESIUM (BEAKER) (test hyvo=657) 2.3 mg/dL 1.6-2.6 BASIC METABOLIC [id number] 04:25:00 Test Item Value Reference Range Comments SODIUM (BEAKER) (test 136 meq/L 136-145 cibe=450) POTASSIUM (BEAKER) (test 4.1 meq/L 3.5-5.1 oelx=871) CHLORIDE (BEAKER) (test 105 meq/L 98-107 bbka=754) CO2 (BEAKER) (test 22 meq/L 22-29 fllt=240) BLOOD UREA NITROGEN 27 mg/dL 7-21 (BEAKER) (test wzak=672) CREATININE (BEAKER) (test 0.87 mg/dL 0.57-1.25 jqpp=486) GLUCOSE RANDOM (BEAKER) 155 mg/dL 70-105 (test xiwe=450) CALCIUM (BEAKER) (test 8.4 mg/dL 8.4-10.2 rcei=798) EGFR (BEAKER) (test 92 mL/min/1.73 sq m ESTIMATED GFR IS NOT pueb=0448) ACCURATE CREATININE CLEARANCE IN PREDICTING GLOMERULAR FILTRATION RATE. ESTIMATED GFR IS NOT APPLICABLE FOR DIALYSIS PATIENTS. CBC W/PLT COUNT & AUTO [id number] 04:14:00 Test Item Value Reference Range Comments WHITE BLOOD CELL COUNT (BEAKER) (test flms=022) 10.9 K/ L 4.0-10.0 RED BLOOD CELL COUNT (BEAKER) (test pbtz=607) 2.69 M/ L 4.20-5.80 HEMOGLOBIN (BEAKER) (test lnvx=364) 8.1 GM/DL 13.0-16.8 HEMATOCRIT (BEAKER) (test pdfj=487) 24.9 % 40.0-50.0 MEAN CORPUSCULAR VOLUME (BEAKER) (test tmox=931) 92.7 fL 82.0-98.0 MEAN CORPUSCULAR HEMOGLOBIN (BEAKER) (test 30.0 pg 27.0-33.0 rwix=963) MEAN CORPUSCULAR HEMOGLOBIN CONC (BEAKER) (test 32.3 GM/DL 32.0-36.0 zimo=455) RED CELL DISTRIBUTION WIDTH (BEAKER) (test 13.4 % 10.3-14.2 wvto=486) PLATELET COUNT (BEAKER) (test emqk=569) 134 K/CU MM 150-430 MEAN PLATELET VOLUME (BEAKER) (test sfxr=933) 8.0 fL 6.5-10.5 NUCLEATED RED BLOOD CELLS (BEAKER) (test 0 /100 WBC 0-0 njqu=093) NEUTROPHILS RELATIVE PERCENT (BEAKER) (test 80 % cuwr=221) LYMPHOCYTES RELATIVE PERCENT (BEAKER) (test 12 % qlpy=030) MONOCYTES RELATIVE PERCENT (BEAKER) (test 8 % ukiy=867) EOSINOPHILS RELATIVE PERCENT (BEAKER) (test 1 % qheo=221) BASOPHILS RELATIVE PERCENT (BEAKER) (test 0 % unqd=922) NEUTROPHILS ABSOLUTE COUNT (BEAKER) (test 8.64 K/ L 1.80-8.00 aify=455) LYMPHOCYTES ABSOLUTE COUNT (BEAKER) (test 1.27 K/ L 1.48-4.50 llkd=561) MONOCYTES ABSOLUTE COUNT (BEAKER) (test 0.82 K/ L 0.00-1.30 aozq=468) EOSINOPHILS ABSOLUTE COUNT (BEAKER) (test 0.11 K/ L 0.00-0.50 urhx=889) BASOPHILS ABSOLUTE COUNT (BEAKER) (test 0.02 K/ L 0.00-0.20 tygl=416) 0.00POCT-GLUCOSE [id number] 03:20:00 Test Item Value Reference Range Comments POC-GLUCOSE METER (BEAKER) 170 mg/dL 70-110 TESTED AT [facility] [address] [facility] (test vkya=4849) [facility] [address] POCT-GLUCOSE [id number] 01:40:00 Test Item Value Reference Range Comments POC-GLUCOSE METER (BEAKER) 216 mg/dL 70-110 TESTED AT [address] (test opux=5255) [facility] [address] POCT-GLUCOSE [id number] 00:08:00 Test Item Value Reference Range Comments POC-GLUCOSE METER (BEAKER) 227 mg/dL 70-110 TESTED AT [address] (test xrjx=1108) [facility] [address] POCT-GLUCOSE [id number] 22:37:00 Test Item Value Reference Range Comments POC-GLUCOSE METER (BEAKER) 262 mg/dL 70-110 TESTED AT [address] (test mqku=5272) [facility] [address] POCT-GLUCOSE [id number] 20:41:00 Test Item Value Reference Range Comments POC-GLUCOSE METER (BEAKER) 318 mg/dL 70-110 Notified MAHAMED CRISTINA/TESTED AT [facility] (test msot=6966) [address] [place] [address] POCT-GLUCOSE [id number] 18:55:00 Test Item Value Reference Range Comments POC-GLUCOSE METER (BEAKER) 363 mg/dL 70-110 Notified MAHAMED CRISTINA/TESTED AT [facility] (test dfhf=0398) [address] [place] [address] POCT-GLUCOSE [id number] 18:03:00 Test Item Value Reference Range Comments POC-GLUCOSE METER (BEAKER) 408 mg/dL 70-110 Notified MAHAMED CRISTINA/TESTED AT [facility] (test iofu=7466) [address] [place] [address] POCT-GLUCOSE [id number] 16:43:00 Test Item Value Reference Range Comments POC-GLUCOSE METER (BEAKER) 413 mg/dL 70-110 Notified MAHAMED CRISTINA/TESTED AT [facility] (test ljlo=7561) [address] [place] [address] POCT-GLUCOSE [id number] 11:39:00 Test Item Value Reference Range Comments POC-GLUCOSE METER (BEAKER) 332 mg/dL 70-110 Notified MAHAMED CRISTINA/TESTED AT [facility] (test ypba=2025) [address] [place] [address] POCT-GLUCOSE [id number] 09:06:00 Test Item Value Reference Range Comments POC-GLUCOSE METER (BEAKER) 173 mg/dL 70-110 TESTED AT [address] (test dpjk=4389) [place] [address] POCT-GLUCOSE [id number] 07:16:00 Test Item Value Reference Range Comments POC-GLUCOSE METER ([facility]) 128 mg/dL 70-110 TESTED AT [address] (test dtfj=7254) [place] [address] [id number] 05:44:00 Test Item Value Reference Range Comments ACTIVATED CLOTTING TIME 121 sec TESTED AT [address] (BEAKER) (test tzuu=205) [place] [address] [id number] 05:44:00 Test Item Value Reference Range Comments ACTIVATED CLOTTING TIME 611 sec TESTED AT [address] (BEAKER) (test rgqm=209) [place] [address] [id number] 05:44:00 Test Item Value Reference Range Comments ACTIVATED CLOTTING TIME 858 sec TESTED AT [address] (BEAKER) (test imtz=103) [place] [address] [id number] 05:44:00 Test Item Value Reference Range Comments ACTIVATED CLOTTING TIME 554 sec TESTED AT [address] (BEAKER) (test jgqf=966) [place] [address] CBC W/PLT COUNT & AUTO [id number] 04:59:00 Test Item Value Reference Range Comments WHITE BLOOD CELL COUNT (BEAKER) (test unit=474) 8.8 K/ L 4.0-10.0 RED BLOOD CELL COUNT (BEAKER) (test lggr=797) 2.91 M/ L 4.20-5.80 HEMOGLOBIN (BEAKER) (test hsml=231) 9.0 GM/DL 13.0-16.8 HEMATOCRIT (BEAKER) (test rdtq=625) 27.1 % 40.0-50.0 MEAN CORPUSCULAR VOLUME (BEAKER) (test hrvj=063) 92.9 fL 82.0-98.0 MEAN CORPUSCULAR HEMOGLOBIN (BEAKER) (test 31.0 pg 27.0-33.0 qnzq=258) MEAN CORPUSCULAR HEMOGLOBIN CONC (BEAKER) (test 33.3 GM/DL 32.0-36.0 nkdf=264) RED CELL DISTRIBUTION WIDTH (BEAKER) (test 13.2 % 10.3-14.2 lpff=056) PLATELET COUNT (BEAKER) (test fbtg=081) 134 K/CU MM 150-430 MEAN PLATELET VOLUME (BEAKER) (test cpri=566) 8.1 fL 6.5-10.5 NUCLEATED RED BLOOD CELLS (BEAKER) (test 0 /100 WBC 0-0 vznb=849) NEUTROPHILS RELATIVE PERCENT (BEAKER) (test 80 % itoc=779) LYMPHOCYTES RELATIVE PERCENT (BEAKER) (test 13 % grqg=343) MONOCYTES RELATIVE PERCENT (BEAKER) (test 6 % ftga=676) EOSINOPHILS RELATIVE PERCENT (BEAKER) (test 0 % pwfw=794) BASOPHILS RELATIVE PERCENT (BEAKER) (test 0 % wyos=587) NEUTROPHILS ABSOLUTE COUNT (BEAKER) (test 7.07 K/ L 1.80-8.00 ddpx=768) LYMPHOCYTES ABSOLUTE COUNT (BEAKER) (test 1.18 K/ L 1.48-4.50 jdad=172) MONOCYTES ABSOLUTE COUNT (BEAKER) (test 0.51 K/ L 0.00-1.30 inmh=268) EOSINOPHILS ABSOLUTE COUNT (BEAKER) (test 0.04 K/ L 0.00-0.50 sugk=025) BASOPHILS ABSOLUTE COUNT (BEAKER) (test 0.01 K/ L 0.00-0.20 tiyr=229) [id number] 04:59:00 Test Item Value Reference Range Comments MAGNESIUM (BEAKER) (test mfjn=783) 2.0 mg/dL 1.6-2.6 BASIC METABOLIC [id number] 04:59:00 Test Item Value Reference Range Comments SODIUM (BEAKER) (test 142 meq/L 136-145 fdfz=146) POTASSIUM (BEAKER) (test 4.6 meq/L 3.5-5.1 iptx=693) CHLORIDE (BEAKER) (test 112 meq/L 98-107 yaoi=415) CO2 (BEAKER) (test 23 meq/L 22-29 dhxc=362) BLOOD UREA NITROGEN 20 mg/dL 7-21 (BEAKER) (test fjjo=190) CREATININE (BEAKER) (test 0.82 mg/dL 0.57-1.25 mvjp=404) GLUCOSE RANDOM (BEAKER) 118 mg/dL 70-105 (test iazg=527) CALCIUM (BEAKER) (test 8.3 mg/dL 8.4-10.2 aomt=888) EGFR (BEAKER) (test 99 mL/min/1.73 sq m ESTIMATED GFR IS NOT qykl=0280) ACCURATE CREATININE CLEARANCE IN PREDICTING GLOMERULAR FILTRATION RATE. ESTIMATED GFR IS NOT APPLICABLE FOR DIALYSIS PATIENTS. POCT-GLUCOSE [id number] 02:19:00 Test Item Value Reference Range Comments POC-GLUCOSE METER (BEAKER) 137 mg/dL 70-110 TESTED AT [address] (test lmpm=2510) [place] [id number] POCT-GLUCOSE [id number] 23:33:00 Test Item Value Reference Range Comments POC-GLUCOSE METER (BEAKER) 118 mg/dL 70-110 TESTED AT [address] (test sldz=7302) [place] [id number] POCT-GLUCOSE [id number] 19:30:00 Test Item Value Reference Range Comments POC-GLUCOSE METER (BEAKER) 109 mg/dL 70-110 TESTED AT [address] (test exle=3117) [facility] [address] POCT-GLUCOSE [id number] 18:24:00 Test Item Value Reference Range Comments POC-GLUCOSE METER (BEAKER) 101 mg/dL 70-110 TESTED AT [address] (test hfhr=4303) [place] [id number] GLUCOSE-STAT [id number] 16:59:00 Test Item Value Reference Range Comments GLUCOSE RANDOM (BEAKER) (test csdo=883) 108 mg/dL 70-110 HGB/HCT (H&H) - STAT [id number] 16:59:00 Test Item Value Reference Range Comments HEMOGLOBIN (BEAKER) (test cndn=366) 9.0 g/dL 13.0-16.8 HEMATOCRIT (BEAKER) (test fbmi=919) 26.0 % 40.0-50.0 BLOOD GAS, [id number] 16:59:00 Test Item Value Reference Range Comments PH ARTERIAL (BEAKER) (test yzxr=709) 7.37 7.35-7.45 PCO2 ARTERIAL (BEAKER) (test yrqw=854) 42 mmHg 35-45 PO2 ARTERIAL (BEAKER) (test cnka=365) 101 mmHg 80-90 O2 SATURATION ARTERIAL (BEAKER) (test rhns=235) 97.5 % 96.0-97.0 HCO3 ARTERIAL (BEAKER) (test city=782) 24 mmol/L 21-29 BASE EXCESS ARTERIAL (BEAKER) (test kppp=617) -1.7 mmol/L -2.0-3.0 PATIENT TEMPERATURE (BEAKER) (test jffj=4501) 36.9 C FIO2 (BEAKER) (test hklx=2146) 36.0 % POCT-GLUCOSE [id number] 15:37:00 Test Item Value Reference Range Comments POC-GLUCOSE METER (BEAKER) 152 mg/dL 70-110 TESTED AT [address] (test unho=0623) [place] [address] [id number] 15:11:00 Test Item Value Reference Range Comments MAGNESIUM (BEAKER) (test qazw=104) 2.1 mg/dL 1.6-2.6 [id number] 15:10:00 Test Item Value Reference Range Comments POTASSIUM (BEAKER) (test kpqm=319) 4.0 meq/L 3.5-5.1 POCT-GLUCOSE [id number] 15:03:00 Test Item Value Reference Range Comments POC-GLUCOSE METER (BEAKER) 180 mg/dL 70-110 TESTED AT [address] (test ulno=9467) [place] [address] POCT-GLUCOSE [id number] 13:33:00 Test Item Value Reference Range Comments POC-GLUCOSE METER (BEAKER) 213 mg/dL 70-110 TESTED AT [address] (test nftz=7567) [place] [address] POCT-GLUCOSE [id number] 13:33:00 Test Item Value Reference Range Comments POC-GLUCOSE METER (BEAKER) 252 mg/dL 70-110 TESTED AT [address] (test vwfk=5280) [place] [address] BASIC METABOLIC [id number] 13:30:00 Test Item Value Reference Range Comments SODIUM (BEAKER) (test 136 meq/L 136-145 cwhm=831) POTASSIUM (BEAKER) (test 4.3 meq/L 3.5-5.1 Specimen slightly cheq=562) hemolyzed CHLORIDE (BEAKER) (test 109 meq/L 98-107 jucg=507) CO2 (BEAKER) (test 19 meq/L 22-29 mhsh=072) BLOOD UREA NITROGEN 22 mg/dL 7-21 (BEAKER) (test pxtm=085) CREATININE (BEAKER) (test 0.92 mg/dL 0.57-1.25 Specimen slightly vfsz=906) hemolyzed GLUCOSE RANDOM (BEAKER) 250 mg/dL 70-105 (test rhhb=526) CALCIUM (BEAKER) (test 7.8 mg/dL 8.4-10.2 skcq=874) EGFR (BEAKER) (test 86 mL/min/1.73 sq m ESTIMATED GFR IS NOT wlhc=5664) ACCURATE CREATININE CLEARANCE IN PREDICTING GLOMERULAR FILTRATION RATE. ESTIMATED GFR IS NOT APPLICABLE FOR DIALYSIS PATIENTS. LACTIC ACID, ARTERIAL, WHOLE [id number] 13:01:00 Test Item Value Reference Range Comments LACTATE BLOOD ARTERIAL (2) 1.4 mmol/L 0.5-2.2 Specimen slightly hemolyzed (BEAKER) (test tqrp=8186) Effective 10/22/2015: Units/Reference Range ChangeNew: 0.5-2.2 mmol/L Previous: 5 -20 mg/dLBLOOD GAS, [id number] 12:31:00 Test Item Value Reference Range Comments PH ARTERIAL (BEAKER) (test soym=005) 7.30 7.35-7.45 PCO2 ARTERIAL (BEAKER) (test nlmo=047) 44 mmHg 35-45 PO2 ARTERIAL (BEAKER) (test xtjz=534) 222 mmHg 80-90 O2 SATURATION ARTERIAL (BEAKER) (test wxct=568) 99.4 % 96.0-97.0 HCO3 ARTERIAL (BEAKER) (test zqnp=096) 21 mmol/L 21-29 BASE EXCESS ARTERIAL (BEAKER) (test ehet=693) -5.3 mmol/L -2.0-3.0 PATIENT TEMPERATURE (BEAKER) (test lsrv=7795) 37.0 C FIO2 (BEAKER) (test rfsa=0279) 60.0 % HGB/HCT (H&H) - STAT [id number] 12:31:00 Test Item Value Reference Range Comments HEMOGLOBIN (BEAKER) (test ljip=410) 10.2 g/dL 13.0-16.8 HEMATOCRIT (BEAKER) (test jloo=545) 30.0 % 40.0-50.0 GLUCOSE-STAT [id number] 12:31:00 Test Item Value Reference Range Comments GLUCOSE RANDOM (BEAKER) (test xtrf=097) 239 mg/dL 70-110 POTASSIUM-STAT [id number] 12:30:00 Test Item Value Reference Range Comments POTASSIUM (BEAKER) (test xrmn=910) 4.1 meq/L 3.6-5.5 CBC W/PLT COUNT & AUTO [id number] 12:24:00 Test Item Value Reference Range Comments WHITE BLOOD CELL COUNT (BEAKER) (test zaub=044) 12.6 K/ L 4.0-10.0 RED BLOOD CELL COUNT (BEAKER) (test yqgs=715) 3.27 M/ L 4.20-5.80 HEMOGLOBIN (BEAKER) (test rnfb=972) 10.2 GM/DL 13.0-16.8 HEMATOCRIT (BEAKER) (test gwhq=933) 29.6 % 40.0-50.0 MEAN CORPUSCULAR VOLUME (BEAKER) (test ofrf=343) 90.5 fL 82.0-98.0 MEAN CORPUSCULAR HEMOGLOBIN (BEAKER) (test 31.1 pg 27.0-33.0 agnx=267) MEAN CORPUSCULAR HEMOGLOBIN CONC (BEAKER) (test 34.4 GM/DL 32.0-36.0 qmlo=808) RED CELL DISTRIBUTION WIDTH (BEAKER) (test 14.2 % 10.3-14.2 hvaa=980) PLATELET COUNT (BEAKER) (test bgpi=251) 137 K/CU MM 150-430 MEAN PLATELET VOLUME (BEAKER) (test jwuf=314) 8.1 fL 6.5-10.5 NUCLEATED RED BLOOD CELLS (BEAKER) (test 0 /100 WBC 0-0 dbae=474) NEUTROPHILS RELATIVE PERCENT (BEAKER) (test 85 % dklv=246) LYMPHOCYTES RELATIVE PERCENT (BEAKER) (test 13 % kode=783) MONOCYTES RELATIVE PERCENT (BEAKER) (test 2 % eqkz=343) EOSINOPHILS RELATIVE PERCENT (BEAKER) (test 1 % fggg=537) BASOPHILS RELATIVE PERCENT (BEAKER) (test 0 % jpvy=941) NEUTROPHILS ABSOLUTE COUNT (BEAKER) (test 10.60 K/ L 1.80-8.00 rliw=592) LYMPHOCYTES ABSOLUTE COUNT (BEAKER) (test 1.59 K/ L 1.48-4.50 pkws=554) MONOCYTES ABSOLUTE COUNT (BEAKER) (test 0.27 K/ L 0.00-1.30 cgoj=708) EOSINOPHILS ABSOLUTE COUNT (BEAKER) (test 0.06 K/ L 0.00-0.50 xtze=324) BASOPHILS ABSOLUTE COUNT (BEAKER) (test 0.02 K/ L 0.00-0.20 gfdz=031) [id number] 12:18:00 Test Item Value Reference Range Comments FIBRINOGEN LEVEL (BEAKER) (test vegv=654) 279 mg/dl 225-434 [id number] 12:18:00 Test Item Value Reference Range Comments PARTIAL THROMBOPLASTIN TIME (BEAKER) (test 33.1 seconds 22.5-36.0 vnpv=908) PROTHROMBIN [id number] 12:17:00 Test Item Value Reference Range Comments PROTIME (BEAKER) (test cncu=876) 16.4 seconds 11.7-14.7 INR (BEAKER) (test xetx=993) 1.3 <=5.9 RECOMMENDED COUMADIN/WARFARIN INR THERAPY RANGESSTANDARD DOSE: 2.0 - 3.0 Includes: PROPHYLAXIS forvenous thrombosis, systemic embolization; TREATMENT for venous thrombosis and/or pulmonary embolus.HIGH RISK: Target INR is 2.5-3.5 for patients with mechanical heart valves.OXYGEN SATURATION, [id number] 12:02:00 Test Item Value Reference Range Comments O2 SATURATION (MEASURED) (BEAKER) (test weul=9195) 74.7 % CALCIUM, [id number] 11:58:00 Test Item Value Reference Range Comments CALCIUM IONIZED (BEAKER) (test dtbe=508) 1.17 mmol/L 1.12-1.27 PH, BLOOD (BEAKER) (test gzfj=1185) 7.29 THROMBOELASTOGRAPH (TEG)[id number] 11:02:00 Test Item Value Reference Range Comments TEG ACTIVATED CLOTTING TIME (BEAKER) (test 4.4 minutes 4.0-7.0 wowl=5209) TEG FIBRINOGEN ACTIVITY (BEAKER) (test 71.9 degrees 61.0-73.0 ybxi=1743) TEG PLT. AGGREGATION (BEAKER) (test njtg=8382) 47.5 MM 55.0-65.0 TGH ACTIVATED CLOTTING TIME (BEAKER) (test 5.3 minutes 4.0-7.0 egww=9766) TGH FIBRINOGEN ACTIVITY (BEAKER) (test 68.1 degrees 61.0-73.0 ryrs=0882) TGH PLT. AGGREGATION (BEAKER) (test hfyn=9996) 50.1 MM 55.0-65.0 PLATELET [id number] 10:45:00 Test Item Value Reference Range Comments PLATELET COUNT (BEAKER) (test ugbq=492) 114 K/CU MM 150-430 BLOOD GAS, [id number] 10:42:00 Test Item Value Reference Range Comments PH ARTERIAL (BEAKER) (test zjjw=880) 7.36 7.35-7.45 PCO2 ARTERIAL (BEAKER) (test yydu=344) 40 mmHg 35-45 PO2 ARTERIAL (BEAKER) (test bvfj=003) 81 mmHg 80-90 O2 SATURATION ARTERIAL (BEAKER) (test nikc=570) 96.5 % 96.0-97.0 HCO3 ARTERIAL (BEAKER) (test pkjh=235) 23 mmol/L 21-29 BASE EXCESS ARTERIAL (BEAKER) (test zuzx=014) -3.2 mmol/L -2.0-3.0 PATIENT TEMPERATURE (BEAKER) (test wjym=2660) 35.1 C FIO2 (BEAKER) (test umuj=1533) 40.0 % SODIUM NA-STAT [id number] 10:42:00 Test Item Value Reference Range Comments SODIUM (BEAKER) (test vstw=712) 132 meq/L 135-148 GLUCOSE-STAT [id number] 10:42:00 Test Item Value Reference Range Comments GLUCOSE RANDOM (BEAKER) (test nrzo=554) 251 mg/dL 70-110 HGB/HCT (H&H) - STAT [id number] 10:42:00 Test Item Value Reference Range Comments HEMOGLOBIN (BEAKER) (test jawj=603) 8.9 g/dL 13.0-16.8 HEMATOCRIT (BEAKER) (test trmk=363) 26.0 % 40.0-50.0 CALCIUM, [id number] 10:42:00 Test Item Value Reference Range Comments CALCIUM IONIZED (BEAKER) (test vyhy=260) 0.94 mmol/L 1.12-1.27 PH, BLOOD (BEAKER) (test ulqi=0496) 7.33 POTASSIUM-STAT [id number] 10:41:00 Test Item Value Reference Range Comments POTASSIUM (BEAKER) (test jvkx=527) 4.2 meq/L 3.6-5.5 [id number] 10:31:00 Test Item Value Reference Range Comments FIBRINOGEN LEVEL (BEAKER) (test asxu=382) 287 mg/dl 225-434 [id number] 10:31:00 Test Item Value Reference Range Comments PARTIAL THROMBOPLASTIN TIME (BEAKER) (test 36.2 seconds 22.5-36.0 xfxp=909) PROTHROMBIN [id number] 10:30:00 Test Item Value Reference Range Comments PROTIME (BEAKER) (test vorm=908) 18.5 seconds 11.7-14.7 INR (BEAKER) (test ztql=500) 1.6 <=5.9 RECOMMENDED COUMADIN/WARFARIN INR THERAPY RANGESSTANDARD DOSE: 2.0 - 3.0 Includes: PROPHYLAXIS forvenous thrombosis, systemic embolization; TREATMENT for venous thrombosis and/or pulmonary embolus.HIGH RISK: Target INR is 2.5-3.5 for patients with mechanical heart valves.BLOOD GAS, [id number] 10:21:00 Test Item Value Reference Range Comments PH ARTERIAL (BEAKER) (test ofkq=297) 7.30 7.35-7.45 PCO2 ARTERIAL (BEAKER) (test djjr=188) 51 mmHg 35-45 PO2 ARTERIAL (BEAKER) (test obxc=828) 241 mmHg 80-90 O2 SATURATION ARTERIAL (BEAKER) (test efoe=372) 99.5 % 96.0-97.0 HCO3 ARTERIAL (BEAKER) (test gvxn=805) 25 mmol/L 21-29 BASE EXCESS ARTERIAL (BEAKER) (test evyk=053) -2.5 mmol/L -2.0-3.0 PATIENT TEMPERATURE (BEAKER) (test skwx=0669) 35.2 C FIO2 (BEAKER) (test ivca=3364) 70.0 % SODIUM NA-STAT [id number] 10:21:00 Test Item Value Reference Range Comments SODIUM (BEAKER) (test lqjq=824) 130 meq/L 135-148 GLUCOSE-STAT [id number] 10:21:00 Test Item Value Reference Range Comments GLUCOSE RANDOM (BEAKER) (test sigx=961) 261 mg/dL 70-110 HGB/HCT (H&H) - STAT [id number] 10:21:00 Test Item Value Reference Range Comments HEMOGLOBIN (BEAKER) (test ubfw=135) 9.2 g/dL 13.0-16.8 HEMATOCRIT (BEAKER) (test druf=486) 27.0 % 40.0-50.0 POTASSIUM-STAT [id number] 10:20:00 Test Item Value Reference Range Comments POTASSIUM (BEAKER) (test zqmy=903) 4.7 meq/L 3.6-5.5 CALCIUM, [id number] 10:18:00 Test Item Value Reference Range Comments CALCIUM IONIZED (BEAKER) (test zmtq=957) 1.12 mmol/L 1.12-1.27 PH, BLOOD (BEAKER) (test volm=0614) 7.27 POTASSIUM-STAT [id number] 09:54:00 Test Item Value Reference Range Comments POTASSIUM (BEAKER) (test ccdu=990) 4.9 meq/L 3.6-5.5 BLOOD GAS, [id number] 09:54:00 Test Item Value Reference Range Comments PH ARTERIAL (BEAKER) (test emlc=482) 7.33 7.35-7.45 PCO2 ARTERIAL (BEAKER) (test fubx=617) 46 mmHg 35-45 PO2 ARTERIAL (BEAKER) (test mjdi=945) 269 mmHg 80-90 O2 SATURATION ARTERIAL (BEAKER) (test pjcx=117) 99.6 % 96.0-97.0 HCO3 ARTERIAL (BEAKER) (test zacb=420) 24 mmol/L 21-29 BASE EXCESS ARTERIAL (BEAKER) (test tnqd=630) -2.5 mmol/L -2.0-3.0 PATIENT TEMPERATURE (BEAKER) (test lefx=0435) 36.0 C FIO2 (BEAKER) (test vokv=6013) 70.0 % SODIUM NA-STAT [id number] 09:54:00 Test Item Value Reference Range Comments SODIUM (BEAKER) (test bsep=129) 130 meq/L 135-148 GLUCOSE-STAT [id number] 09:54:00 Test Item Value Reference Range Comments GLUCOSE RANDOM (BEAKER) (test snbz=443) 189 mg/dL 70-110 HGB/HCT (H&H) - STAT [id number] 09:54:00 Test Item Value Reference Range Comments HEMOGLOBIN (BEAKER) (test acrr=911) 8.7 g/dL 13.0-16.8 HEMATOCRIT (BEAKER) (test hebe=716) 26.0 % 40.0-50.0 BLOOD GAS, [id number] 09:34:00 Test Item Value Reference Range Comments PH ARTERIAL (BEAKER) (test xdue=373) 7.36 7.35-7.45 PCO2 ARTERIAL (BEAKER) (test oswk=025) 42 mmHg 35-45 PO2 ARTERIAL (BEAKER) (test fvvh=038) 314 mmHg 80-90 O2 SATURATION ARTERIAL (BEAKER) (test ggxy=968) 99.7 % 96.0-97.0 HCO3 ARTERIAL (BEAKER) (test greu=174) 25 mmol/L 21-29 BASE EXCESS ARTERIAL (BEAKER) (test crdd=383) -2.3 mmol/L -2.0-3.0 PATIENT TEMPERATURE (BEAKER) (test ovue=3424) 31.0 C FIO2 (BEAKER) (test yasz=7178) 70.0 % SODIUM NA-STAT [id number] 09:34:00 Test Item Value Reference Range Comments SODIUM (BEAKER) (test oese=752) 127 meq/L 135-148 POTASSIUM-STAT [id number] 09:34:00 Test Item Value Reference Range Comments POTASSIUM (BEAKER) (test fujn=506) 5.5 meq/L 3.6-5.5 GLUCOSE-STAT [id number] 09:34:00 Test Item Value Reference Range Comments GLUCOSE RANDOM (BEAKER) (test ltxk=866) 177 mg/dL 70-110 HGB/HCT (H&H) - STAT [id number] 09:34:00 Test Item Value Reference Range Comments HEMOGLOBIN (BEAKER) (test ixzv=545) 7.9 g/dL 13.0-16.8 HEMATOCRIT (BEAKER) (test wehm=046) 23.0 % 40.0-50.0 BLOOD GAS, [id number] 09:33:00 Test Item Value Reference Range Comments PH VENOUS (BEAKER) (test mejd=427) 7.33 7.32-7.42 PCO2 VENOUS (BEAKER) (test xwmw=554) 49 mmHg 41-51 PO2 VENOUS (BEAKER) (test emav=425) 44 mmHg 25-40 O2 SATURATION VENOUS (BEAKER) (test qxkm=913) 89.4 % 40.0-70.0 HCO3 VENOUS (BEAKER) (test dscu=750) 28 mmol/L 21-29 BASE EXCESS VENOUS (BEAKER) (test mjkf=633) -0.1 mmol/L -2.0-3.0 PATIENT TEMPERATURE (BEAKER) (test vatk=8911) 31.0 C FIO2 (BEAKER) (test ztxz=1557) 70.0 % SODIUM NA-STAT [id number] 08:42:00 Test Item Value Reference Range Comments SODIUM (BEAKER) (test pqer=370) 135 meq/L 135-148 BLOOD GAS, [id number] 08:42:00 Test Item Value Reference Range Comments PH ARTERIAL (BEAKER) (test utcw=961) 7.47 7.35-7.45 PCO2 ARTERIAL (BEAKER) (test bjig=008) 37 mmHg 35-45 PO2 ARTERIAL (BEAKER) (test crdx=750) 405 mmHg 80-90 O2 SATURATION ARTERIAL (BEAKER) (test ngia=759) 99.8 % 96.0-97.0 HCO3 ARTERIAL (BEAKER) (test rgbi=075) 27 mmol/L 21-29 BASE EXCESS ARTERIAL (BEAKER) (test nhkt=531) 2.6 mmol/L -2.0-3.0 PATIENT TEMPERATURE (BEAKER) (test lxwn=6216) 36.4 C FIO2 (BEAKER) (test kznz=0593) 100.0 % POTASSIUM-STAT [id number] 08:42:00 Test Item Value Reference Range Comments POTASSIUM (BEAKER) (test eojx=309) 3.3 meq/L 3.6-5.5 GLUCOSE-STAT [id number] 08:42:00 Test Item Value Reference Range Comments GLUCOSE RANDOM (BEAKER) (test yanx=522) 214 mg/dL 70-110 HGB/HCT (H&H) - STAT [id number] 08:42:00 Test Item Value Reference Range Comments HEMOGLOBIN (BEAKER) (test jpxn=314) 13.2 g/dL 13.0-16.8 HEMATOCRIT (BEAKER) (test qpdo=543) 39.0 % 40.0-50.0 CALCIUM, [id number] 08:42:00 Test Item Value Reference Range Comments CALCIUM IONIZED (BEAKER) (test uaxb=679) 1.08 mmol/L 1.12-1.27 PH, BLOOD (BEAKER) (test haok=9086) 7.46 POCT-GLUCOSE [id number] 06:55:00 Test Item Value Reference Range Comments POC-GLUCOSE METER (BEAKER) 229 mg/dL 70-110 TESTED AT [facility] [address] [facility] (test ihni=2036) [facility] [address] HEMOGLOBIN [id number] 11:00:00 Test Item Value Reference Range Comments HEMOGLOBIN A1C (BEAKER) (test qulm=324) 15.1 % 4.3-6.1 BASIC METABOLIC [id number] 10:01:00 Test Item Value Reference Range Comments SODIUM (BEAKER) (test 135 meq/L 136-145 bvad=947) POTASSIUM (BEAKER) (test 4.6 meq/L 3.5-5.1 inif=679) CHLORIDE (BEAKER) (test 100 meq/L 98-107 vjqn=142) CO2 (BEAKER) (test 23 meq/L 22-29 pzrt=672) BLOOD UREA NITROGEN 19 mg/dL 7-21 (BEAKER) (test xxyv=253) CREATININE (BEAKER) (test 1.16 mg/dL 0.57-1.25 alfa=069) GLUCOSE RANDOM (BEAKER) 352 mg/dL 70-105 (test hwwf=560) CALCIUM (BEAKER) (test 9.9 mg/dL 8.4-10.2 uhxd=601) EGFR (BEAKER) (test 66 mL/min/1.73 sq m ESTIMATED GFR IS NOT uxjd=4414) ACCURATE CREATININE CLEARANCE IN PREDICTING GLOMERULAR FILTRATION RATE. ESTIMATED GFR IS NOT APPLICABLE FOR DIALYSIS PATIENTS. [id number] 09:46:00 Test Item Value Reference Range Comments PROTIME (BEAKER) (test etzs=572) 12.4 seconds 11.7-14.7 INR (BEAKER) (test xwon=991) 0.9 <=5.9 PARTIAL THROMBOPLASTIN TIME (BEAKER) (test 27.5 seconds 22.5-36.0 phci=623) RECOMMENDED COUMADIN/WARFARIN INR THERAPY RANGESSTANDARD DOSE: 2.0 - 3.0 Includes: PROPHYLAXIS forvenous thrombosis, systemic embolization; TREATMENT for venous thrombosis and/or pulmonary embolus.HIGH RISK: Target INR is 2.5-3.5 for patients with mechanical heart valves.CBC W/PLT COUNT & AUTO [id number] 09:40:00 Test Item Value Reference Range Comments WHITE BLOOD CELL COUNT (BEAKER) (test noxg=926) 8.9 K/ L 4.0-10.0 RED BLOOD CELL COUNT (BEAKER) (test amia=028) 5.02 M/ L 4.20-5.80 HEMOGLOBIN (BEAKER) (test ubko=104) 15.2 GM/DL 13.0-16.8 HEMATOCRIT (BEAKER) (test gwvb=989) 46.1 % 40.0-50.0 MEAN CORPUSCULAR VOLUME (BEAKER) (test hsqd=329) 91.8 fL 82.0-98.0 MEAN CORPUSCULAR HEMOGLOBIN (BEAKER) (test 30.3 pg 27.0-33.0 erth=716) MEAN CORPUSCULAR HEMOGLOBIN CONC (BEAKER) (test 33.0 GM/DL 32.0-36.0 xzbp=905) RED CELL DISTRIBUTION WIDTH (BEAKER) (test 13.4 % 10.3-14.2 usdl=887) PLATELET COUNT (BEAKER) (test wdet=825) 219 K/CU MM 150-430 MEAN PLATELET VOLUME (BEAKER) (test ddtu=511) 8.8 fL 6.5-10.5 NUCLEATED RED BLOOD CELLS (BEAKER) (test 0 /100 WBC 0-0 iend=735) NEUTROPHILS RELATIVE PERCENT (BEAKER) (test 68 % hdan=844) LYMPHOCYTES RELATIVE PERCENT (BEAKER) (test 25 % xcjz=244) MONOCYTES RELATIVE PERCENT (BEAKER) (test 4 % jfnt=536) EOSINOPHILS RELATIVE PERCENT (BEAKER) (test 2 % jzlr=410) BASOPHILS RELATIVE PERCENT (BEAKER) (test 1 % gozm=622) NEUTROPHILS ABSOLUTE COUNT (BEAKER) (test 6.03 K/ L 1.80-8.00 cmsl=334) LYMPHOCYTES ABSOLUTE COUNT (BEAKER) (test 2.25 K/ L 1.48-4.50 leqo=688) MONOCYTES ABSOLUTE COUNT (BEAKER) (test 0.39 K/ L 0.00-1.30 npdb=319) EOSINOPHILS ABSOLUTE COUNT (BEAKER) (test 0.14 K/ L 0.00-0.50 cioi=334) BASOPHILS ABSOLUTE COUNT (BEAKER) (test 0.06 K/ L 0.00-0.20 xvoh=587) 0.00
--- NOTE | 2017-09-20 09:08 | RAD REPORT ---
EXAM DESCRIPTION: CT - Head Brain Wo Cont - 09/20/2017 8:54 am CLINICAL HISTORY: Head injury status post fall COMPARISON: 2017 TECHNIQUE: Computed axial tomography of the head was obtained. IV contrast was not requested. All CT scans are performed using dose optimization technique as appropriate and may include automated exposure control or mA/KV adjustment according to patient size. FINDINGS: An intracranial bleed is not seen . The ventricles are normal in caliber. No extra-axial fluid collection is noted. Fluid within the sinuses/ mastoids is not seen. IMPRESSION: No acute intracranial abnormality is seen. If patient's symptoms persist MRI of the bra in would be recommended.
--- NOTE | 2017-09-20 09:16 | RAD REPORT ---
EXAM DESCRIPTION: CT - Thorax Wo Con - 09/20/2017 8:57 am CLINICAL HISTORY: Chest pain status post fall COMPARISON: 2016 TECHNIQUE: Computed axial tomography of the chest was obtained. Contrast was not requested. All CT scans are performed using dose optimization technique as appropriate and may include automated exposure control or mA/KV adjustment according to patient size. FINDINGS: The evaluation of mediastinum, luke and vessels is limited secondary to lack of IV contras t administration. A mediastinal hematoma is not seen. A pleural effusion is not present. A pericardial effusion is not present. Postsurgical changes involv e the chest. A lung contusion is not seen. A 4.3 centimeter left upper lobe cavity is minimally diminished in size since the prior exam. A 20 mi llimeter cavity is present within the left lower lobe. Left lung nodules and tree-in-bud opacities R without significant change. IMPRESSION: No acute traumatic injury is visualized. Left lung cavities, nodules and tree-in-bud opacities probably indicating MARIO
--- NOTE | 2017-09-20 09:58 | RAD REPORT ---
EXAM DESCRIPTION: RAD - Humerus Left - 09/20/2017 9:09 am CLINICAL HISTORY: Left arm pain status post fall FINDINGS: No fracture is seen
[2017-09-20] MEDS ORDERED: IBUPROFEN 200 MG TAB PO ONE (10:28)
--- NOTE | 2017-09-20 10:40 | RAD REPORT ---
EXAM DESCRIPTION: RAD - Pelvis - 09/20/2017 9:08 am CLINICAL HISTORY: Multiple falls, pelvic pain COMPARISON: None. TECHNIQUE: AP imaging of the pelvis was obtained. FINDINGS: No fracture or dislocation identifiable in either proximal femur. No fracture of the bony pelvis is appreciated. The SI joints show minimal degenerative change. No pubic symphysis abnormality . No periarticular mass or hematoma. No suspicious soft tissue finding. IMPRESSION: No pelvic fracture. No hip joint or proximal femur abnormalities identifiable.
--- NOTE | 2017-09-20 11:04 | EDPHYS ---
Physician Documentation [facility] Unit Name: Los Griggs Jr Age: 52 yrs Sex: Male : 1965 Arrival Date: 09/20/2017 Time: 08:26 Bed 8 Private MD: ED Physician Denis Morse HPI: 09/20 10:55 This 52 yrs old Male presents to ER via EMS with complaints of Fall Injury. gs 10:55 Details of fall: The patient fell from an upright position, while walking. Onset: The gs symptoms/episode began/occurred acutely, this morning. Associated injuries: The patient sustained injury to the chest, specifically the anterior aspect of right upper chest, right lateral anterior chest and right breast, abrasion, contusion. Associated injuries: The patient sustained injury to the head, abrasion, contusion. Severity of symptoms: At their worst the symptoms were moderate, in the emergency department the symptoms are unchanged. The patient has experienced similar episodes in the past, a few times. The patient has not recently seen a physician. 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 - Immunization history: Last tetanus immunization: unknown. - Social history:: Smoking status: Patient uses tobacco products, denies chronic smoking, but will smoke occasionally, Patient/guardian denies using alcohol, street drugs. ROS: 10:55 All other systems are negative. gs 10:55 MS/extremity: Positive for chronic hip and left arm pain has had for many months. gs Exam: 10:55 Eyes: Pupils equal round and reactive to light, extra-ocular motions intact. Lids and gs lashes normal. Conjunctiva and sclera are non-icteric and not injected. Cornea within normal limits. Periorbital areas with no swelling, redness, or edema. ENT: Nares patent. No nasal discharge, no septal abnormalities noted. Tympanic membranes are normal and external auditory canals are clear. Oropharynx with no redness, swelling, or masses, exudates, or evidence of obstruction, uvula midline. Mucous membranes moist. Neck: Trachea midline, no thyromegaly or masses palpated, and no cervical lymphadenopathy. Supple, full range of motion without nuchal rigidity, or vertebral point tenderness. No Meningismus. Cardiovascular: Regular rate and rhythm with a normal S1 and S2. No gallops, murmurs, or rubs. Normal PMI, no JVD. No pulse deficits. Respiratory: Lungs have equal breath sounds bilaterally, clear to auscultation and percussion. No rales, rhonchi or wheezes noted. No increased work of breathing, no retractions or nasal flaring. Abdomen/GI: Soft, non-tender, with normal bowel sounds. No distension or tympany. No guarding or rebound. No evidence of tenderness throughout. Back: No spinal tenderness. No costovertebral tenderness. Full range of motion. Skin: Warm, dry with normal turgor. Normal color with no rashes, no lesions, and no evidence of cellulitis. MS/ Extremity: Pulses equal, no cyanosis. Neurovascular intact. Full, normal range of motion. 10:55 Constitutional: The patient appears alert, awake. 10:55 Head/face: Noted is abrasion(s), that are mild, of the right ear. 10:55 Chest/axilla: Palpation: tenderness, that is moderate, that totally reproduces the patient's complaints. 10:55 ECG was reviewed by the Attending Physician. gs 10:55 Neuro: Orientation: is normal, Mentation: is normal, Memory: is normal, Cranial nerves: CN II- XII are normal as tested, Cerebellar function: normal finger to nose testing, Motor: moves all fours, strength is normal, Sensation: is normal, Gait: is steady. Vital Signs: 08:34 BP 139 / 97; Pulse 94; Resp 16; Temp 97.7; Pulse Ox 97% on R/A; Weight 92.99 kg; Height ch 5 ft. 10 in. (177.80 cm); Pain 7/10; 09:27 BP 142 / 88; Pulse 74; Resp 16; Temp 97.8; Pulse Ox 99% on R/A; Pain 7/10; ch 08:34 Body Mass Index 29.41 (92.99 kg, 177.80 cm) [place] Coma Score: 08:34 Eye Response: spontaneous(4). Verbal Response: oriented(5). Motor Response: obeys commands(6). Total: 15. Trauma Score (Adult): 08:34 Eye Response: spontaneous(1); Verbal Response: oriented(1); Motor Response: obeys commands(2); Systolic BP: > 89 mm Hg(4); Respiratory Rate: 10 to 29 per min(4); [place] Score: 15; Trauma Score: 12 MDM: 08:42 Patient medically screened. gs 10:55 Differential diagnosis: closed head injury, contusion, fracture. Data reviewed: vital gs signs, nurses notes. Response to treatment: the patient's symptoms have markedly improved after treatment, and as a result, I will discharge patient. 09/20 08:44 Order name: CT Chest Wo Con; Complete Time: 10:43 gs 09/20 08:44 Order name: Humerus Left XRAY; Complete Time: 10:43 gs 09/20 08:44 Order name: EKG; Complete Time: 08:45 gs 09/20 08:44 Order name: Pelvis XRAY; Complete Time: 10:43 gs 09/20 08:47 Order name: CT Head Brain wo Cont; Complete Time: 10:43 gs EC:55 Rate is 937 beats/min. Rhythm is regular. QT interval is prolonged. T waves are Normal. gs No ST changes noted. Clinical impression: Abnormal EKG without significant change. Interpreted by me. Administered Medications: 10:12 Drug: Motrin 600 mg Route: PO; 11:00 Follow up: Response: No adverse reaction Disposition: 09/20/17 11:04 Discharged to Home. Impression: Contusion of right front wall of thorax, Contusion of right back wall of thorax. - Condition is Stable. - Discharge Instructions: Chest Contusion, [id number]. - Medication Reconciliation Form, Thank You Letter, Antibiotic Education, Prescription Opioid Use form. - Follow up: Private Physician; When: 2 - 3 days; Reason: Re-evaluation by your physician. Signatures: Dispatcher [employer] Jessie Connelly, Ronit Burroughs RN, ch, RN RN aj Starr, Gregory, MD MD
--- NOTE | 2017-09-20 11:04 | ER ---
Nurse's Notes [facility] Name: oLs Griggs Jr Age: 52 yrs Sex: Male : 1965 Arrival Date: 09/20/2017 Time: 08:26 Bed 8 Private MD: Diagnosis: Contusion of right front wall of thorax;Contusion of right back wall of thorax Presentation: 09/20 08:26 Presenting complaint: Patient states: I fell three times, I am not sure why. I was half ch asleep and was walking. EMS states: said pt was walking from bedroom to kitchen and fell, landed on the floor, lanolium floor. denies LOC. said he was acting out of it when he fell, but ems states pt was normal . Care prior to arrival: None. Care prior to arrival: Glucose check: 423. Mechanism of Injury: Fall from standing position. Trauma event details: Injury occurred in the [facility], Injury occurred: at home. Injury occurred: September 20, 2017 Injury occurred at: 07:30. 08:26 Acuity: JAIMEE 4 08:26 Method Of Arrival: EMS: [facility] 08:37 Transition of care: patient was not received from another setting of care. Onset of ch symptoms was September 20, 2017 at 07:30. Triage Assessment: 08:37 General: Appears in no apparent distress. comfortable, Behavior is calm, cooperative. Trauma Activation: Not Applicable Physician: ED Physician; Name: ; Notified At: ; Arrived At: Physician: General Surgeon; Name: ; Notified At: ; Arrived At: Physician: Radiology; Name: ; Notified At: ; Arrived At: Physician: Respiratory; Name: ; Notified At: ; Arrived At: Physician: Lab; Name: ; Notified At: ; Arrived At: Historical: - Allergies: 08:31 No Known Drug Allergies; ch - Home Meds: 08:31 metoprolol tartrate 25 mg Oral tab 1 tab once daily [Active]; ch 08:34 aspirin 81 mg Oral TbEC 1 tab once daily [Active]; Flovent Inhl 110 mcg daily [Active]; ch Insulin Glargine 70/30 Sub-Q 20 unit twice a day [Active]; - PMHx: 08:31 Bulging 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 - Immunization history: Last tetanus immunization: unknown. - Social history:: Smoking status: Patient uses tobacco products, denies chronic smoking, but will smoke occasionally, Patient/guardian denies using alcohol, street drugs. Screenin:34 Abuse screen: Denies threats or abuse. Denies injuries from another. Tuberculosis ch screening: No symptoms or risk factors identified. Primary Survey: 08:31 A: Airway: patent. Breathing/Chest: Respiratory pattern: regular, Respiratory effort: ch spontaneous, unlabored. Circulation: Cardiac rhythm: sinus rhythm Heart tones present. Pulses: palpable bilateral radial, brachial, femoral, popliteal, posterior tibial and and dorsalis pedis arteries.. Skin color: pink, Skin temperature: warm, dry. Disability Alert. Secondary Survey: 08:34 HEENT: Head Other pt has small laceration to R ear. Gastrointestinal: Abdomen is soft, ch non-distended. : No signs and/or symptoms were reported regarding the genitourinary system. Musculoskeletal: Capillary refill < 3 seconds, in bilateral fingers. toes. Range of motion: intact in all extremities, Swelling absent Reports pain in anterior aspect of right upper chest and right lateral anterior chest. Assessment: 09:27 Reassessment: Patient appears in no apparent distress at this time. Patient and/or family updated on plan of care and expected duration. Pain level reassessed. Patient is alert, oriented x 3, equal unlabored respirations, skin warm/dry/pink. Patient states feeling better. Patient states symptoms have improved. General: Appears in no apparent distress. comfortable, Behavior is calm, cooperative, appropriate for age. Pain: Complains of pain in anterior aspect of right upper chest, right lateral anterior chest, right hip, left bicep and left tricep. Neuro: No deficits noted. 10:00 Reassessment: Patient appears in no apparent distress at this time. No changes from previously documented assessment. Patient and/or family updated on plan of care and expected duration. Pain level reassessed. Patient is alert, oriented x 3, equal unlabored respirations, skin warm/dry/pink. pt c/o pain still. erp notified, pt medicated per orders. Vital Signs: 08:34 BP 139 / 97; Pulse 94; Resp 16; Temp 97.7; Pulse Ox 97% on R/A; Weight 92.99 kg; Height ch 5 ft. 10 in. (177.80 cm); Pain 7/10; 09:27 BP 142 / 88; Pulse 74; Resp 16; Temp 97.8; Pulse Ox 99% on R/A; Pain 7/10; ch 08:34 Body Mass Index 29.41 (92.99 kg, 177.80 cm) Vitals: 10:00 Cardiac Rhythm Assessment Regular. [place] Coma Score: 08:34 Eye Response: spontaneous(4). Verbal Response: oriented(5). Motor Response: obeys commands(6). Total: 15. Trauma Score (Adult): 08:34 Eye Response: spontaneous(1); Verbal Response: oriented(1); Motor Response: obeys commands(2); Systolic BP: > 89 mm Hg(4); Respiratory Rate: 10 to 29 per min(4); [place] Score: 15; Trauma Score: 12 ED Course: 08:26 Patient arrived in ED. 08:29 Triage completed. 08:34 Patient has correct armband on for positive identification. Placed in gown. Bed in low ch position. Call light in reach. Side rails up X2. Adult w/ patient. Patient maintains SpO2 saturation greater than 95% on room air. Pulse ox on. NIBP on. 08:34 No provider procedures requiring assistance completed. Patient maintains SpO2 ch saturation greater than 95% on room air. Thermoregulation: warm blanket given to patient. 08:37 Arm band placed on right wrist. Patient placed in an exam room, on a stretcher, on pulse oximetry. 08:42 Denis Morse MD is Attending Physician. gs 08:52 CT completed. Patient tolerated procedure well. Patient moved to CT via stretcher. jg1 Patient moved back from CT. Patient moved back from radiology. 08:54 CT Head Brain wo Cont In Process Unspecified. EDMS 08:56 CT Chest Wo Con In Process Unspecified. EDMS 09:06 X-ray completed. Patient tolerated procedure well. Patient moved to radiology via sw stretcher. Patient moved back from radiology. 09:07 Humerus Left XRAY In Process Unspecified. EDMS 09:07 Pelvis XRAY In Process Unspecified. EDMS 09:27 Jessie Allison, RN is Primary Nurse. 09:48 EKG done, by field operations technician. reviewed by Denis Morse MD. at1 Administered Medications: 10:12 Drug: Motrin 600 mg Route: PO; 11:00 Follow up: Response: No adverse reaction ch Intake: 08:34 PO: 0ml; Total: 0ml. Outcome: 11:04 Discharge ordered by . gs 11:23 Discharged to home ambulatory. aj 11:23 Condition: good 11:23 Discharge instructions given to patient, Instructed on discharge instructions, follow up and referral plans. Demonstrated understanding of instructions, follow-up care. 11:23 Patient left the ED. aj Signatures: Dispatcher [employer] EDND Jessie Allison, Ronit Burroughs RN, ch, RN RN aj Garcia, Jessica jg1 Ronit santana, inspector [employer] EKG Tat1 Rosalina Delvalle Gregory, MD MD
[2017-09-20 11:36] VITALS: BP 142/88; TEMP 97.8; O2SAT 99
--- NOTE | 2017-09-21 07:38 | EKG ---
Test Date: 2017-09-20 Test Time: 09:35:37 Bicycle Ii Assembler: RADHA MEASUREMENT RESULTS: Intervals: Rate: 93 SC: 178 QRSD: 104 QT: 402 QTc: 499 [place]: P: 67 SC: 178 QRS: 46 T: 97 INTERPRETIVE STATEMENTS: Normal sinus rhythm Moderate voltage criteria for LVH, may be normal variant Prolonged QT Abnormal ECG Compared to ECG 10/22/2016 10:38:14 Left ventricular hypertrophy now present Prolonged QT interval now present Myocardial infarct finding no longer present ST (T wave) deviation no longer present Possible ischemia no longer present Electronically Signed On 09-21-17 07:35:12 CDT by Parvez Coe
== END 2017-09-20 11:23 | disposition home or self-care (01) ==
LOC: ER 08:27
DX: S20.211A Contusion of right front wall of thorax, initial encounter (principal); S20.221A Contusion of right back wall of thorax, initial encounter; W18.39XA Other fall on same level, initial encounter; Y93.01 Activity, walking, marching and hiking; Z79.82 Long term (current) use of aspirin; Z72.0 Tobacco use; I10 Essential (primary) hypertension; I25.2 Old myocardial infarction; E11.9 Type 2 diabetes mellitus without complications; I50.9 Heart failure, unspecified
CPT/HCPCS: 70450; 71250; 72170; 93005; 99285

== ENCOUNTER 2018-04-03 13:22 | Observation (INO) | payer OTHER ==
--- OUTSIDE RECORDS SUMMARY | 2018-04-03 13:29 | XMS REPORT | Clinical Summary ---
:1965 Author Organization [facility] Address [address] [place] [address] Phone Care Team Providers Name Role Phone Unavailable Primary Care Provider Unavailable Allergies No Known Allergies Current Medications Prescription Sig. Disp. Refills Start Date End Date Status ethambutol Take 1,200 mg by Active (MYAMBUTOL) 400 mouth daily. MG tablet albuterol HFA Inhale 2 puffs by Active (VENTOLIN HFA) 90 mouth via inhaler mcg/actuation every 6 (six) hours inhaler as needed for Wheezing. rifAMPin Take 600 mg by Active (RIFADIN) 300 MG mouth daily. capsule pen needle, To use 6 a day. 600 each 3 11/07/2016 Active diabetic 31 gauge x 5/16" Ndle azithromycin Take 500 mg by Active (ZITHROMAX) 500 mouth daily. MG tablet insulin regular Inject 25 Units Active (HUMULIN subcutaneously 2 R,NOVOLIN R) 100 (two) times daily unit/mL injection Sliding scale . prasugrel Take 10 mg by mouth Active (EFFIENT) 10 mg daily Took 20 mg Tab tablet this am as instructed . aspirin 81 MG EC Take 81 mg by mouth Active tablet daily. fLUoxetine Take 20 mg by mouth 12/07/19 Discontinued (PROZAC) 20 MG daily. 18 capsule furosemide Take 40 mg by mouth 12/07/19 Discontinued (LASIX) 40 MG daily. 18 tablet insulin detemir To use 50 units 45 mL 0 11/07/2016 12/07/19 Discontinued (LEVEMIR FLEXPEN) bid. 18 100 unit/mL (3 mL) InPn injection insulin lispro To use from 8 to 22 45 mL 3 11/07/2016 12/07/19 Discontinued (HUMALOG KWIKPEN) units three times a 18 100 unit/mL InPn day. blood-glucose Use as instructed 400 each 3 11/07/2016 11/08/19 meter kit Glucometer Test strips to use 4 a day # 400 Refills x 3 18 Lancets to use 4 a day # 400 Refills x 3. aspirin 81 MG Take 1 tablet (81 30 tablet 1 11/08/2016 11/09/19 chewable tablet mg total) by mouth 18 daily. atorvastatin Take 1 tablet (40 30 tablet 1 11/08/2016 11/09/19 (LIPITOR) 40 MG mg total) by mouth 18 tablet nightly. losartan (COZAAR) Take 1 tablet (25 30 tablet 1 11/08/2016 11/09/19 25 MG tablet mg total) by mouth 18 daily. metoprolol Take 1 tablet (25 60 tablet 1 11/08/2016 11/09/19 (LOPRESSOR) 25 MG mg total) by mouth 18 tablet 2 (two) times daily. Active Problems Problem Noted Date Carotid stenosis, right 12/06/2017 Carotid artery stenosis 12/06/2017 Mycobacterium avium complex ([facility]) 12/03/2017 Bilateral carotid artery disease ([facility]) 12/03/2017 S/P CABG x 3 12/03/2017 Coronary artery disease involving [place] coronary artery of [place] heart 10/27 without angina pectoris Systolic congestive heart failure ([facility]) 10/27/2016 S/P coronary artery stent placement 10/27/2016 Cardiomyopathy ([facility]) 10/27/2016 Essential hypertension 10/27/2016 Insulin dependent diabetes mellitus ([facility]) 10/27/2016 COPD (chronic obstructive pulmonary disease) ([facility]) 10/27/2016 Current every day smoker 10/27/2016 Encounters Date Type Specialty Care Team Description 12/06/2017 - Hospital Encounter Cardiology Keon Jean 12/07/2017 MD Edilberto 12/06/2017 Procedure Pass 12/06/2017 Surgery Keon Jean STENT / CAROTID [facility] - MD Edilberto IP PROC ONLY 12/01/2017 Hospital Encounter Radiology Keon Jean Right cavernous carotid MD Edilberto stenosis 11/30/2017 Outside Orders Radiology Keon Jean Right cavernous carotid MD Edilberto stenosis (Primary Dx) 11/29/2017 Procedure Pass after 04/02/2017 Social History Tobacco Use Types Packs/Day Years Used Date Former Smoker 30 Smokeless Tobacco: Former User Comments: quit 2017 Alcohol Use Drinks/Week oz/Week Comments No Sex Assigned at Date Recorded Not on file Last Filed Vital Signs Vital Sign Reading Time Taken Blood Pressure 129/66 12/07/2017 7:35 AM CDT Pulse 84 12/07/2017 7:35 AM CDT Temperature 36.6 C (97.8 F) 12/07/2017 7:35 AM CDT Respiratory Rate 18 12/07/2017 7:35 AM CDT Oxygen Saturation 91% 12/07/2017 7:35 AM CDT Inhaled Oxygen Concentration - - Weight 90 kg (198 lb 6.4 oz) 12/07/2017 7:35 AM CDT Height 177.8 cm (5' 10") 12/06/2017 6:29 AM CDT Body Mass Index 28.47 12/07/2017 7:35 AM CDT Plan of Treatment Health Maintenance Due Date Last Done Comments INFLUENZA VACCINE 03/20/2018 Procedures Procedure Name Priority Date/Time Associated Diagnosis Comments STENT / CAROTID MCR 12/06/2017 10:07 AM Stenosis of right - IP PROC ONLY CDT carotid artery Case Notes POP6 after 04/02/2017 Results VASCULAR DIAGRAM -SCAN (03/09/2018 11:11 AM)Only the most recent of2 resultswithin the time period is included.CARDIAC CATH REPORT - SCAN (2017 10:10 AM)RHYTHM STRIP - SCAN (12/08/2017 9:50 AM)POC-Glucose meter (2017 9:11 AM)Only the most recent of4 resultswithin the time period is included. Component Value Ref Range POC-Glucose Meter 368 (H)Comment: TESTED AT [address] 70 - 110 mg/[place] [address] Specimen Performing Laboratory Blood [address] [address] Platelet Aggregation: Function Screen (12/07/2017 3:28 AM) Component Value Ref Range Weak ADP 7 (L) 60 - 91 % Plt. Function Screen Interpretation 0-39% indicates marked platelet dysfunction Pathologist: aJnnette Bryant MD (electronic signature) Platelets 198 150 - 450 K/CU MM Specimen Performing Laboratory Blood - Arm, Right [facility] [address] [address] CBC (Hemogram only) (12/07/2017 3:28 AM) Component Value Ref Range WBC 7.2 3.5 - 10.5 K/L RBC 4.27 (L) 4.63 - 6.08 M/L Hemoglobin 12.3 (L) 13.7 - 17.5 GM/DL Hematocrit 38.3 (L) 40.1 - 51.0 % MCV 89.7 79.0 - 92.2 fL MCH 28.8 25.7 - 32.2 pg MCHC 32.1 (L) 32.3 - 36.5 GM/DL RDW 14.6 (H) 11.6 - 14.4 % Platelets 194 150 - 450 K/CU MM MPV 11.4 9.4 - 12.4 fL nRBC 0 0 - 0 /100 WBC Specimen Performing Laboratory Blood - Arm, [address] [address] Basic Metabolic Panel (12/07/2017 3:28 AM) Component Value Ref Range Sodium 136 136 - 145 meq/L Potassium 4.2 3.5 - 5.1 meq/L Chloride 104 98 - 107 meq/L CO2 26 22 - 29 meq/L BUN 17 7 - 21 mg/dL Creatinine 0.99 0.57 - 1.25 mg/dL Glucose 320 (H) 70 - 105 mg/dL Calcium 8.9 8.4 - 10.2 mg/dL EGFR 79Comment: ESTIMATED GFR IS NOT ACCURATE mL/min/1.73 sq m CREATININE CLEARANCE IN PREDICTING GLOMERULAR FILTRATION RATE. ESTIMATED GFR IS NOT APPLICABLE FOR DIALYSIS PATIENTS. Specimen Performing Laboratory Blood - Arm, [address] [address] POC ACTIVATED CLOTTING TIME (12/06/2017 3:35 PM)Only the most recent of3 resultswithin the time period is included. Component Value Ref Range Activated Clotting Time 131Comment: TESTED AT [address] [place] [address] Specimen Performing Laboratory Blood [address] [address] MRA neck without & with IV contrast (12/01/2017 11:34 AM) Specimen Performing Laboratory GE RIS Narrative FINAL REPORT MRA head, arch, great vessels, and neck CLINICAL HISTORY: RIGHT CAROTID STENOSIS TECHNIQUE:2-D and 3-D [id number] and postcontrast MRA of the head, arch, great vessels, and neck was provided with maximal intensity projection 3-D reconstructions of the arterial vasculature. COMPARISON: None FINDINGS: There is no evidence for a sam[place] of [place] proximal branch vessel occlusion. There is a right posterior communicating artery. No aneurysms are seen. There is long segment narrowing of the proximal right internal carotid artery, greatest 2 cm beyond the carotid bifurcation, where it measures approximately 80% by NASCET criteria. There is no focal hemodynamically significant stenosis of the proximal left internal carotid artery. There is antegrade flow in the vertebral arteries in the neck. There is a moderate stenosis of the right cervical vertebral artery mid segment. IMPRESSION: Long segment stenosis of the proximal right internal carotid artery, greatest 2 cm beyond the carotid bifurcation, measuring approximately 80% by NASCET criteria. Moderate stenosis of the right cervical vertebral artery. No evidence for a samish of Rudolph proximal branch vessel occlusion. Signed: Mya Mendoza MD Report Verified Date/Time:12/01/2017 13:28:07 Reading Location: [facility] [id number] Consult Reading Room Procedure Note Interface, External Ris In - 12/01/2017 1:30 PM CDT FINAL REPORT MRA head, arch, great vessels, and neck CLINICAL HISTORY: RIGHT CAROTID STENOSIS TECHNIQUE: 2-D and 3-D [id number] and postcontrast MRA of the head, arch, great vessels, and neck was provided with maximal intensity projection 3-D reconstructions of the arterial vasculature. COMPARISON: None FINDINGS: There is no evidence for a samish of [place] proximal branch vessel occlusion. There is a right posterior communicating artery. No aneurysms are seen. There is long segment narrowing of the proximal right internal carotid artery, greatest 2 cm beyond the carotid bifurcation, where it measures approximately 80% by NASCET criteria. There is no focal hemodynamically significant stenosis of the proximal left internal carotid artery. There is antegrade flow in the vertebral arteries in the neck. There is a moderate stenosis of the right cervical vertebral artery mid segment. IMPRESSION: Long segment stenosis of the proximal right internal carotid artery, greatest 2 cm beyond the carotid bifurcation, measuring approximately 80% by NASCET criteria. Moderate stenosis of the right cervical vertebral artery. No evidence for a samish of [place]olph proximal branch vessel occlusion. Signed: Mya Mendoza MD Report Verified Date/Time: 12/01/2017 13:28:07 Reading Location: [facility] [id number] Consult Reading Room head with and without contrast (12/01/2017 11:34 AM) Specimen Performing Laboratory GE RIS Narrative FINAL REPORT MRA head, arch, great vessels, and neck CLINICAL HISTORY: RIGHT CAROTID STENOSIS TECHNIQUE:2-D and 3-D [id number] and postcontrast MRA of the head, arch, great vessels, and neck was provided with maximal intensity projection 3-D reconstructions of the arterial vasculature. COMPARISON: None FINDINGS: There is no evidence for a sam[place] of [place] proximal branch vessel occlusion. There is a right posterior communicating artery. No aneurysms are seen. There is long segment narrowing of the proximal right internal carotid artery, greatest 2 cm beyond the carotid bifurcation, where it measures approximately 80% by NASCET criteria. There is no focal hemodynamically significant stenosis of the proximal left internal carotid artery. There is antegrade flow in the vertebral arteries in the neck. There is a moderate stenosis of the right cervical vertebral artery mid segment. IMPRESSION: Long segment stenosis of the proximal right internal carotid artery, greatest 2 cm beyond the carotid bifurcation, measuring approximately 80% by NASCET criteria. Moderate stenosis of the right cervical vertebral artery. No evidence for a samish of Rudolph proximal branch vessel occlusion. Signed: Mya Mendoza MD Report Verified Date/Time:12/01/2017 13:28:07 Reading Location: [facility] B1 [id number] Consult Reading Room Procedure Note Interface, External Ris In - 12/01/2017 1:30 PM CDT FINAL REPORT MRA head, arch, great vessels, and neck CLINICAL HISTORY: RIGHT CAROTID STENOSIS TECHNIQUE: 2-D and 3-D [id number] and postcontrast MRA of the head, arch, great vessels, and neck was provided with maximal intensity projection 3-D reconstructions of the arterial vasculature. COMPARISON: None FINDINGS: There is no evidence for a samish of [place] proximal branch vessel occlusion. There is a right posterior communicating artery. No aneurysms are seen. There is long segment narrowing of the proximal right internal carotid artery, greatest 2 cm beyond the carotid bifurcation, where it measures approximately 80% by NASCET criteria. There is no focal hemodynamically significant stenosis of the proximal left internal carotid artery. There is antegrade flow in the vertebral arteries in the neck. There is a moderate stenosis of the right cervical vertebral artery mid segment. IMPRESSION: Long segment stenosis of the proximal right internal carotid artery, greatest 2 cm beyond the carotid bifurcation, measuring approximately 80% by NASCET criteria. Moderate stenosis of the right cervical vertebral artery. No evidence for a samish of [place] proximal branch vessel occlusion. Signed: Mya Mendoza MD Report Verified Date/Time: 12/01/2017 13:28:07 Reading Location: [facility] [id number] Consult Reading Room -Creatinine (12/01/2017 10:44 AM) Component Value Ref Range POC-Creatinine 0.9Comment: TESTED AT [facility]-[address] 0.6 - 1.3 mg/dL [facility] [address] POC-EGFR 88 mL/min/1.73M2 Specimen Performing Laboratory Blood [facility] [address] [address] after 04/02/2017
--- OUTSIDE RECORDS SUMMARY | 2018-04-03 13:30 | XMS REPORT ---
:1965 [facility] Address [address] [place] [address] Care Team Providers Name Role Phone BEAUDENICE CÉSARALFONZO Unavailable Unavailable BRAULIO HURLEY Unavailable Unavailable Problems This patient has no known problems. Allergies, Adverse Reactions, Alerts This patient has no known allergies or adverse reactions. Medications This patient has no known medications. Results Test Description Test Time Test Comments Text Results Atomic Results Result Comments PLATELET AGGREGATION: FUNCTION SCREEN 2017-12-07 09:51:00 Test Item Value Reference Range Comments WEAK ADP RESULT(BEAKER) (test 7 % 60-91 scvs=5780) PLATELET FUNCTION SCREEN INTERP 0-39% indicates marked platelet (BEAKER) (test oran=7140) dysfunction [id number]-[id number]-[id number] (BEAKER) (test Jannette Bryant MD (electronic svww=5783) signature) PLATELET COUNT AGG (BEAKER) (test 198 K/CU MM 150-450 wyht=7519) POCT-GLUCOSE [id number] 09:13:00 Test Item Value Reference Range Comments POC-GLUCOSE METER (BEAKER) 368 mg/dL 70-110 TESTED AT [address] (test mdaq=5120) [facility] [address] BASIC METABOLIC [id number] 04:10:00 Test Item Value Reference Range Comments SODIUM (BEAKER) (test 136 meq/L 136-145 pumz=538) POTASSIUM (BEAKER) (test 4.2 meq/L 3.5-5.1 ssad=548) CHLORIDE (BEAKER) (test 104 meq/L 98-107 seij=885) CO2 (BEAKER) (test 26 meq/L 22-29 xqji=336) BLOOD UREA NITROGEN 17 mg/dL 7-21 (BEAKER) (test korq=413) CREATININE (BEAKER) (test 0.99 mg/dL 0.57-1.25 zfdr=335) GLUCOSE RANDOM (BEAKER) 320 mg/dL 70-105 (test xsxx=165) CALCIUM (BEAKER) (test 8.9 mg/dL 8.4-10.2 cgnk=489) EGFR (BEAKER) (test 79 mL/min/1.73 sq m ESTIMATED GFR IS NOT nwhe=6005) ACCURATE CREATININE CLEARANCE IN PREDICTING GLOMERULAR FILTRATION RATE. ESTIMATED GFR IS NOT APPLICABLE FOR DIALYSIS PATIENTS. CBC (HEMOGRAM ONLY)2017-12-07 03:49:00 Test Item Value Reference Range Comments WHITE BLOOD CELL COUNT (BEAKER) (test vfhu=224) 7.2 K/ L 3.5-10.5 RED BLOOD CELL COUNT (BEAKER) (test ioqt=157) 4.27 M/ L 4.63-6.08 HEMOGLOBIN (BEAKER) (test ifai=794) 12.3 GM/DL 13.7-17.5 HEMATOCRIT (BEAKER) (test woru=583) 38.3 % 40.1-51.0 MEAN CORPUSCULAR VOLUME (BEAKER) (test ytyy=987) 89.7 fL 79.0-92.2 MEAN CORPUSCULAR HEMOGLOBIN (BEAKER) (test 28.8 pg 25.7-32.2 ijpx=062) MEAN CORPUSCULAR HEMOGLOBIN CONC (BEAKER) (test 32.1 GM/DL 32.3-36.5 nkqm=122) RED CELL DISTRIBUTION WIDTH (BEAKER) (test 14.6 % 11.6-14.4 rcru=828) PLATELET COUNT (BEAKER) (test dgyt=312) 194 K/CU MM 150-450 MEAN PLATELET VOLUME (BEAKER) (test rbtt=806) 11.4 fL 9.4-12.4 NUCLEATED RED BLOOD CELLS (BEAKER) (test 0 /100 WBC 0-0 kwbh=957) POCT-GLUCOSE [id number] 22:59:00 Test Item Value Reference Range Comments POC-GLUCOSE METER (BEAKER) 281 mg/dL 70-110 TESTED AT [address] (test dazg=8818) [facility] [address] POCT-GLUCOSE [id number] 17:19:00 Test Item Value Reference Range Comments POC-GLUCOSE METER (BEAKER) 398 mg/dL 70-110 TESTED AT [address] (test xzvi=2544) [place] [address] [id number] 15:41:00 Test Item Value Reference Range Comments ACTIVATED CLOTTING TIME 131 sec TESTED AT [address] [facility] (test zfao=720) [place] [address] [id number] 14:07:00 Test Item Value Reference Range Comments ACTIVATED CLOTTING TIME 142 sec TESTED AT [address] [facility] (test vyxm=735) [place] [address] [id number] 09:52:00 Test Item Value Reference Range Comments ACTIVATED CLOTTING TIME 362 sec TESTED AT [address] [facility] (test kbmy=328) [place] [address] POCT-GLUCOSE [id number] 07:42:00 Test Item Value Reference Range Comments POC-GLUCOSE METER ([facility]) 196 mg/dL 70-110 TESTED AT [address] (test bkmw=0982) [place] [address] MR, MRA, BRAIN, [id number] 13:28:00FINAL REPORT MRA head, arch, great vessels, and neck CLINICAL HISTORY: RIGHT CAROTID STENOSIS TECHNIQUE: 2-D and 3-D yxio-fu-tkkvqw and postcontrast MRA of the head, arch, greatvessels, and neck was provided with maximal intensity projection 3-D reconstructions of the arterialvasculature. COMPARISON: None FINDINGS: There is no evidence for a [place] proximal branch vessel occlusion. There [...] cervical vertebral artery. No evidence for a [place] proximal branch vessel occlusion. Signed: Mya Mendoza MDReport Verified Date/Time: 2017 13:28:07 Reading Location: [facility] B1 C013W Consult Reading Room MR, MRA, NECK, [id number] 13:28:00FINAL REPORT MRA head, arch , great vessels, and neck CLINICAL HISTORY: RIGHT CAROTID STENOSIS TECHNIQUE: 2 -D and 3-D pgog-hl-yozcdq and postcontrast MRA of the head, arch, greatvessels, and neck was provided with maximal intensity projection 3-D reconstructions of the arterialvasculature. COMPARISON: None FINDINGS: There is no evidence for a [place] proximal branch vessel occlusion. There [...] cervical vertebral artery. No evidence for a [place] proximal branch vessel occlusion. Signed: Mya Mendoza MDReport Verified Date/Time: 12/01/2017 13:28: 07 Reading Location: [facility] C013W Consult Reading Room [id number] 10:49:00 Test Item Value Reference Range Comments POC-CREATININE (BEAKER) 0.9 mg/dL 0.6-1.3 TESTED AT [facility]- [address] (test ksxj=7790) [facility] [address] POC-EGFR (BEAKER) (test 88 mL/min/1.73M2 dwzu=5747) POCT-GLUCOSE [id number] 11:54:00 Test Item Value Reference Range Comments POC-GLUCOSE METER (BEAKER) 297 mg/dL 70-110 TESTED AT [facility] [address] [facility] (test toin=9924) [facility] [address] POCT-GLUCOSE [id number] 08:49:00 Test Item Value Reference Range Comments POC-GLUCOSE METER (BEAKER) 250 mg/dL 70-110 TESTED AT [facility] [address] (test xblz=5127) [place] [address] CBC (HEMOGRAM ONLY)2016-11-08 07:15:00 Test Item Value Reference Range Comments WHITE BLOOD CELL COUNT (BEAKER) (test luij=722) 7.3 K/ L 4.0-10.0 RED BLOOD CELL COUNT (BEAKER) (test hzea=319) 2.67 M/ L 4.20-5.80 HEMOGLOBIN (BEAKER) (test sybu=761) 8.5 GM/DL 13.0-16.8 HEMATOCRIT (BEAKER) (test pgln=950) 24.8 % 40.0-50.0 MEAN CORPUSCULAR VOLUME (BEAKER) (test usca=238) 92.9 fL 82.0-98.0 MEAN CORPUSCULAR HEMOGLOBIN (BEAKER) (test 31.6 pg 27.0-33.0 qywc=768) MEAN CORPUSCULAR HEMOGLOBIN CONC (BEAKER) (test 34.0 GM/DL 32.0-36.0 uahe=639) RED CELL DISTRIBUTION WIDTH (BEAKER) (test 15.7 % 10.3-14.2 xdxo=781) PLATELET COUNT (BEAKER) (test lirt=676) 274 K/CU MM 150-430 MEAN PLATELET VOLUME (BEAKER) (test afyi=660) 7.3 fL 6.5-10.5 NUCLEATED RED BLOOD CELLS (BEAKER) (test 0 /100 WBC 0-0 yjvd=821) [id number] 06:58:00 Test Item Value Reference Range Comments MAGNESIUM (BEAKER) (test ebei=881) 2.1 mg/dL 1.6-2.6 BASIC METABOLIC [id number] 06:58:00 Test Item Value Reference Range Comments SODIUM (BEAKER) (test 137 meq/L 136-145 bjnm=694) POTASSIUM (BEAKER) (test 4.2 meq/L 3.5-5.1 zumn=920) CHLORIDE (BEAKER) (test 100 meq/L 98-107 tpdm=696) CO2 (BEAKER) (test 28 meq/L 22-29 tuob=261) BLOOD UREA NITROGEN 18 mg/dL 7-21 (BEAKER) (test okpj=662) CREATININE (BEAKER) (test 0.83 mg/dL 0.57-1.25 nhpk=397) GLUCOSE RANDOM (BEAKER) 234 mg/dL 70-105 (test kool=974) CALCIUM (BEAKER) (test 8.4 mg/dL 8.4-10.2 ywwb=360) EGFR (BEAKER) (test 97 mL/min/1.73 sq m ESTIMATED GFR IS NOT iyky=8893) ACCURATE CREATININE CLEARANCE IN PREDICTING GLOMERULAR FILTRATION RATE. ESTIMATED GFR IS NOT APPLICABLE FOR DIALYSIS PATIENTS. POCT-GLUCOSE [id number] 21:04:00 Test Item Value Reference Range Comments POC-GLUCOSE METER (BEAKER) 166 mg/dL 70-110 TESTED AT [address] (test xbni=2421) [place] [address] POCT-GLUCOSE [id number] 17:37:00 Test Item Value Reference Range Comments POC-GLUCOSE METER (BEAKER) 153 mg/dL 70-110 TESTED AT [address] (test qndz=5924) [place] [address] POCT-GLUCOSE [id number] 17:04:00 Test Item Value Reference Range Comments POC-GLUCOSE METER (BEAKER) 106 mg/dL 70-110 TESTED AT [address] (test ndmi=2869) [place] [address] POCT-GLUCOSE [id number] 15:06:00 Test Item Value Reference Range Comments POC-GLUCOSE METER (BEAKER) 76 mg/dL 70-110 TESTED AT [address] (test pqka=9847) [place] [address] POCT-GLUCOSE [id number] 12:32:00 Test Item Value Reference Range Comments POC-GLUCOSE METER (BEAKER) 156 mg/dL 70-110 TESTED AT [address] (test hvki=6810) [place] [address] POCT-GLUCOSE [id number] 08:10:00 Test Item Value Reference Range Comments POC-GLUCOSE METER (BEAKER) 153 mg/dL 70-110 TESTED AT [address] (test cbnm=3738) [place] [address] URINALYSIS W/ [id number] 07:06:00 Test Item Value Reference Range Comments COLOR (BEAKER) (test nbdj=221) Light Yellow CLARITY (BEAKER) (test skda=318) Clear SPECIFIC GRAVITY UA (BEAKER) (test mvxv=636) 1.005 1.001-1.035 PH UA (BEAKER) (test dzri=529) 5.0 5.0-8.0 PROTEIN UA (BEAKER) (test ydsl=238) Negative Negative GLUCOSE UA (BEAKER) (test hupf=704) Negative Negative KETONES UA (BEAKER) (test gmvh=893) Negative Negative BILIRUBIN UA (BEAKER) (test rrmj=064) Negative Negative BLOOD UA (BEAKER) (test wpyw=178) Negative Negative NITRITE UA (BEAKER) (test ixts=015) Negative Negative LEUKOCYTE ESTERASE UA (BEAKER) (test fwoa=072) Small Negative UROBILINOGEN UA (BEAKER) (test xojp=443) 0.2 mg/dL 0.2-1.0 RBC UA (BEAKER) (test jlfh=424) < /HPF WBC UA (BEAKER) (test xsuj=251) 7 /HPF SQUAMOUS EPITHELIAL (BEAKER) (test dmlk=081) 2 /HPF SOURCE(BEAKER) (test wgnc=1344) [id number] 04:51:00 Test Item Value Reference Range Comments MAGNESIUM (BEAKER) (test sarz=481) 1.9 mg/dL 1.6-2.6 BASIC METABOLIC [id number] 04:51:00 Test Item Value Reference Range Comments SODIUM (BEAKER) (test 140 meq/L 136-145 wlfo=777) POTASSIUM (BEAKER) (test 4.0 meq/L 3.5-5.1 ntqe=603) CHLORIDE (BEAKER) (test 102 meq/L 98-107 hfda=303) CO2 (BEAKER) (test 31 meq/L 22-29 pfby=578) BLOOD UREA NITROGEN 16 mg/dL 7-21 (BEAKER) (test zqiv=503) CREATININE (BEAKER) (test 0.78 mg/dL 0.57-1.25 oifn=022) GLUCOSE RANDOM (BEAKER) 136 mg/dL 70-105 (test tjfm=850) CALCIUM (BEAKER) (test 8.6 mg/dL 8.4-10.2 vphl=406) EGFR (BEAKER) (test 105 mL/min/1.73 sq m ESTIMATED GFR IS NOT iidx=1356) ACCURATE CREATININE CLEARANCE IN PREDICTING GLOMERULAR FILTRATION RATE. ESTIMATED GFR IS NOT APPLICABLE FOR DIALYSIS PATIENTS. CBC (HEMOGRAM ONLY)2016-11-07 04:41:00 Test Item Value Reference Range Comments WHITE BLOOD CELL COUNT (BEAKER) (test ukaq=013) 6.9 K/ L 4.0-10.0 RED BLOOD CELL COUNT (BEAKER) (test sosy=810) 2.64 M/ L 4.20-5.80 HEMOGLOBIN (BEAKER) (test hwwg=827) 8.3 GM/DL 13.0-16.8 HEMATOCRIT (BEAKER) (test ebee=717) 24.5 % 40.0-50.0 MEAN CORPUSCULAR VOLUME (BEAKER) (test uguc=348) 92.6 fL 82.0-98.0 MEAN CORPUSCULAR HEMOGLOBIN (BEAKER) (test 31.4 pg 27.0-33.0 escr=638) MEAN CORPUSCULAR HEMOGLOBIN CONC (BEAKER) (test 33.9 GM/DL 32.0-36.0 yigo=061) RED CELL DISTRIBUTION WIDTH (BEAKER) (test 14.5 % 10.3-14.2 jbza=236) PLATELET COUNT (BEAKER) (test bjnt=598) 236 K/CU MM 150-430 MEAN PLATELET VOLUME (BEAKER) (test lnkt=218) 7.3 fL 6.5-10.5 NUCLEATED RED BLOOD CELLS (BEAKER) (test 0 /100 WBC 0-0 upiw=061) 0.00POCT-GLUCOSE [id number] 21:36:00 Test Item Value Reference Range Comments POC-GLUCOSE METER (BEAKER) 256 mg/dL 70-110 TESTED AT [address] (test czsg=4267) [facility] [address] POCT-GLUCOSE [id number] 18:23:00 Test Item Value Reference Range Comments POC-GLUCOSE METER (BEAKER) 137 mg/dL 70-110 TESTED AT [address] (test vlqy=9985) [facility] [address] POCT-GLUCOSE [id number] 17:09:00 Test Item Value Reference Range Comments POC-GLUCOSE METER (BEAKER) 120 mg/dL 70-110 TESTED AT [address] (test rzuy=3680) [place] [address] POCT-GLUCOSE [id number] 12:21:00 Test Item Value Reference Range Comments POC-GLUCOSE METER (BEAKER) 129 mg/dL 70-110 TESTED AT [address] (test xjwa=1085) [place] [address] CBC (HEMOGRAM ONLY)2016-11-06 08:00:00 Test Item Value Reference Range Comments WHITE BLOOD CELL COUNT (BEAKER) (test vwmv=101) 6.2 K/ L 4.0-10.0 RED BLOOD CELL COUNT (BEAKER) (test sdth=793) 2.40 M/ L 4.20-5.80 HEMOGLOBIN (BEAKER) (test lxbz=396) 7.2 GM/DL 13.0-16.8 HEMATOCRIT (BEAKER) (test humo=293) 22.6 % 40.0-50.0 MEAN CORPUSCULAR VOLUME (BEAKER) (test uehj=027) 94.3 fL 82.0-98.0 MEAN CORPUSCULAR HEMOGLOBIN (BEAKER) (test 30.0 pg 27.0-33.0 aiao=929) MEAN CORPUSCULAR HEMOGLOBIN CONC (BEAKER) (test 31.8 GM/DL 32.0-36.0 beos=031) RED CELL DISTRIBUTION WIDTH (BEAKER) (test 14.5 % 10.3-14.2 nnmg=885) PLATELET COUNT (BEAKER) (test xtbj=350) 224 K/CU MM 150-430 MEAN PLATELET VOLUME (BEAKER) (test hkvj=063) 7.4 fL 6.5-10.5 NUCLEATED RED BLOOD CELLS (BEAKER) (test 0 /100 WBC 0-0 rhvd=083) 0.00POCT-GLUCOSE [id number] 07:49:00 Test Item Value Reference Range Comments POC-GLUCOSE METER (BEAKER) 241 mg/dL 70-110 TESTED AT [address] (test pocq=9170) [place] [address] [id number] 06:49:00 Test Item Value Reference Range Comments MAGNESIUM (BEAKER) (test vpor=758) 2.0 mg/dL 1.6-2.6 BASIC METABOLIC [id number] 06:49:00 Test Item Value Reference Range Comments SODIUM (BEAKER) (test 136 meq/L 136-145 oepx=146) POTASSIUM (BEAKER) (test 4.2 meq/L 3.5-5.1 ddln=256) CHLORIDE (BEAKER) (test 102 meq/L 98-107 ouir=710) CO2 (BEAKER) (test 26 meq/L 22-29 nolt=284) BLOOD UREA NITROGEN 15 mg/dL 7-21 (BEAKER) (test jcnh=114) CREATININE (BEAKER) (test 0.76 mg/dL 0.57-1.25 grqa=439) GLUCOSE RANDOM (BEAKER) 221 mg/dL 70-105 (test imlf=030) CALCIUM (BEAKER) (test 8.4 mg/dL 8.4-10.2 tnmb=170) EGFR (BEAKER) (test 108 mL/min/1.73 sq m ESTIMATED GFR IS NOT kogu=7124) ACCURATE CREATININE CLEARANCE IN PREDICTING GLOMERULAR FILTRATION RATE. ESTIMATED GFR IS NOT APPLICABLE FOR DIALYSIS PATIENTS. POCT-GLUCOSE [id number] 16:44:00 Test Item Value Reference Range Comments POC-GLUCOSE METER (BEAKER) 144 mg/dL 70-110 TESTED AT [address] (test czgz=8677) [place] [address] POCT-GLUCOSE [id number] 15:34:00 Test Item Value Reference Range Comments POC-GLUCOSE METER (BEAKER) 70 mg/dL 70-110 TESTED AT [address] (test oknm=6936) [place] [address] POCT-GLUCOSE [id number] 15:00:00 Test Item Value Reference Range Comments POC-GLUCOSE METER (BEAKER) 49 mg/dL 70-110 TESTED AT [address] (test rzyn=5949) [place] [address] POCT-GLUCOSE [id number] 13:01:00 Test Item Value Reference Range Comments POC-GLUCOSE METER (BEAKER) 202 mg/dL 70-110 TESTED AT [address] (test ajqp=3451) [place] [address] POCT-GLUCOSE [id number] 08:35:00 Test Item Value Reference Range Comments POC-GLUCOSE METER (BEAKER) 194 mg/dL 70-110 TESTED AT [address] (test jwcl=5905) [place] [address] [id number] 04:08:00 Test Item Value Reference Range Comments MAGNESIUM (BEAKER) (test mvwi=884) 1.9 mg/dL 1.6-2.6 BASIC METABOLIC [id number] 04:08:00 Test Item Value Reference Range Comments SODIUM (BEAKER) (test 137 meq/L 136-145 dbiz=348) POTASSIUM (BEAKER) (test 3.4 meq/L 3.5-5.1 lzns=131) CHLORIDE (BEAKER) (test 103 meq/L 98-107 iwwf=847) CO2 (BEAKER) (test 26 meq/L 22-29 kfsk=881) BLOOD UREA NITROGEN 19 mg/dL 7-21 (BEAKER) (test ipyr=812) CREATININE (BEAKER) (test 0.71 mg/dL 0.57-1.25 rwwy=249) GLUCOSE RANDOM (BEAKER) 75 mg/dL 70-105 (test xvpn=584) CALCIUM (BEAKER) (test 8.6 mg/dL 8.4-10.2 ydgt=134) EGFR (BEAKER) (test 117 mL/min/1.73 sq m ESTIMATED GFR IS NOT cwuv=9543) ACCURATE CREATININE CLEARANCE IN PREDICTING GLOMERULAR FILTRATION RATE. ESTIMATED GFR IS NOT APPLICABLE FOR DIALYSIS PATIENTS. CBC W/PLT COUNT & AUTO [id number] 04:05:00 Test Item Value Reference Range Comments WHITE BLOOD CELL COUNT (BEAKER) (test pzqp=923) 6.9 K/ L 4.0-10.0 RED BLOOD CELL COUNT (BEAKER) (test halx=790) 2.36 M/ L 4.20-5.80 HEMOGLOBIN (BEAKER) (test ubxa=218) 7.8 GM/DL 13.0-16.8 HEMATOCRIT (BEAKER) (test itys=738) 21.7 % 40.0-50.0 MEAN CORPUSCULAR VOLUME (BEAKER) (test xgao=968) 91.6 fL 82.0-98.0 MEAN CORPUSCULAR HEMOGLOBIN (BEAKER) (test 32.9 pg 27.0-33.0 njlq=094) MEAN CORPUSCULAR HEMOGLOBIN CONC (BEAKER) (test 35.9 GM/DL 32.0-36.0 cuhx=861) RED CELL DISTRIBUTION WIDTH (BEAKER) (test 14.7 % 10.3-14.2 zttg=005) PLATELET COUNT (BEAKER) (test rqqe=925) 192 K/CU MM 150-430 MEAN PLATELET VOLUME (BEAKER) (test kqnl=382) 7.4 fL 6.5-10.5 NUCLEATED RED BLOOD CELLS (BEAKER) (test 0 /100 WBC 0-0 vhlz=300) NEUTROPHILS RELATIVE PERCENT (BEAKER) (test 67 % ldux=391) LYMPHOCYTES RELATIVE PERCENT (BEAKER) (test 23 % xfbb=984) MONOCYTES RELATIVE PERCENT (BEAKER) (test 7 % agoh=224) EOSINOPHILS RELATIVE PERCENT (BEAKER) (test 4 % ynha=404) BASOPHILS RELATIVE PERCENT (BEAKER) (test 1 % njhp=158) NEUTROPHILS ABSOLUTE COUNT (BEAKER) (test 4.61 K/ L 1.80-8.00 ordz=577) LYMPHOCYTES ABSOLUTE COUNT (BEAKER) (test 1.56 K/ L 1.48-4.50 gugr=522) MONOCYTES ABSOLUTE COUNT (BEAKER) (test 0.46 K/ L 0.00-1.30 crun=670) EOSINOPHILS ABSOLUTE COUNT (BEAKER) (test 0.24 K/ L 0.00-0.50 bjru=616) BASOPHILS ABSOLUTE COUNT (BEAKER) (test 0.04 K/ L 0.00-0.20 tkhp=248) 0.00POCT-GLUCOSE [id number] 21:29:00 Test Item Value Reference Range Comments POC-GLUCOSE METER (BEAKER) 140 mg/dL 70-110 TESTED AT [address] (test tphu=2548) [place] [id number] POCT-GLUCOSE [id number] 17:57:00 Test Item Value Reference Range Comments POC-GLUCOSE METER (BEAKER) 237 mg/dL 70-110 TESTED AT [address] (test ngzy=2968) [facility] [address] TISSUE [id number] 15:18:00Surgical Pathology Report Case: [id number] Authorizing Provider: Braulio Hurley MD Collected: 11/01/2016 1102 Ordering Location: [facility] Received: 11/01/2016 5756 [employer] [employer] Pathologist: Ian Wang MD Specimen: Plaque, RCA PLAQUE HEART, CORONARY ARTERY, RIGHT, ATHERECTOMY:CALCIFIC ATHEROSCLEROTIC PLAQUEElectronically signed by Ian Wang MDon 11/04/2016 at 3:18 [id number]; [id number] plaqueThe specimen is received in saline labeled with the patient's information labeled "RCA plaque" and consists of a calcified tubular-shaped segment of tissue measuring 10.5 cm in length x 0.4 cm in diameter. Representatively submitted A1 for decalcification. CG/plPerformedPOCT-GLUCOSE [id number] 12:12:00 Test Item Value Reference Range Comments POC-GLUCOSE METER (BEAKER) 90 mg/dL 70-110 TESTED AT [address] (test rpvz=6825) [facility] [address] POCT-GLUCOSE [id number] 08:56:00 Test Item Value Reference Range Comments POC-GLUCOSE METER (BEAKER) 215 mg/dL 70-110 TESTED AT [address] (test gloq=7024) [place] [address] [id number] 06:16:00 Test Item Value Reference Range Comments MAGNESIUM (BEAKER) (test pztz=120) 2.1 mg/dL 1.6-2.6 BASIC METABOLIC [id number] 06:16:00 Test Item Value Reference Range Comments SODIUM (BEAKER) (test 136 meq/L 136-145 swaz=936) POTASSIUM (BEAKER) (test 3.6 meq/L 3.5-5.1 lgjt=777) CHLORIDE (BEAKER) (test 102 meq/L 98-107 broq=043) CO2 (BEAKER) (test 25 meq/L 22-29 yghs=068) BLOOD UREA NITROGEN 29 mg/dL 7-21 (BEAKER) (test xtyb=670) CREATININE (BEAKER) (test 0.89 mg/dL 0.57-1.25 gfuc=688) GLUCOSE RANDOM (BEAKER) 123 mg/dL 70-105 (test bqhy=022) CALCIUM (BEAKER) (test 8.7 mg/dL 8.4-10.2 opmm=683) EGFR (BEAKER) (test 90 mL/min/1.73 sq m ESTIMATED GFR IS NOT fugr=6084) ACCURATE CREATININE CLEARANCE IN PREDICTING GLOMERULAR FILTRATION RATE. ESTIMATED GFR IS NOT APPLICABLE FOR DIALYSIS PATIENTS. CBC W/PLT COUNT & AUTO [id number] 05:46:00 Test Item Value Reference Range Comments WHITE BLOOD CELL COUNT (BEAKER) (test qxel=312) 9.1 K/ L 4.0-10.0 RED BLOOD CELL COUNT (BEAKER) (test rqdp=925) 2.59 M/ L 4.20-5.80 HEMOGLOBIN (BEAKER) (test jjfh=134) 8.2 GM/DL 13.0-16.8 HEMATOCRIT (BEAKER) (test ncbw=668) 23.6 % 40.0-50.0 MEAN CORPUSCULAR VOLUME (BEAKER) (test lvag=692) 91.4 fL 82.0-98.0 MEAN CORPUSCULAR HEMOGLOBIN (BEAKER) (test 31.8 pg 27.0-33.0 urjy=517) MEAN CORPUSCULAR HEMOGLOBIN CONC (BEAKER) (test 34.7 GM/DL 32.0-36.0 nbcl=203) RED CELL DISTRIBUTION WIDTH (BEAKER) (test 14.3 % 10.3-14.2 rgcl=409) PLATELET COUNT (BEAKER) (test hcfg=199) 173 K/CU MM 150-430 MEAN PLATELET VOLUME (BEAKER) (test hcmh=295) 8.3 fL 6.5-10.5 NUCLEATED RED BLOOD CELLS (BEAKER) (test 0 /100 WBC 0-0 qolx=911) NEUTROPHILS RELATIVE PERCENT (BEAKER) (test 75 % xvrs=075) LYMPHOCYTES RELATIVE PERCENT (BEAKER) (test 15 % nwhy=432) MONOCYTES RELATIVE PERCENT (BEAKER) (test 8 % xcel=184) EOSINOPHILS RELATIVE PERCENT (BEAKER) (test 2 % mwvo=479) BASOPHILS RELATIVE PERCENT (BEAKER) (test 0 % xnxc=100) NEUTROPHILS ABSOLUTE COUNT (BEAKER) (test 6.79 K/ L 1.80-8.00 dfuz=399) LYMPHOCYTES ABSOLUTE COUNT (BEAKER) (test 1.38 K/ L 1.48-4.50 kpsr=318) MONOCYTES ABSOLUTE COUNT (BEAKER) (test 0.71 K/ L 0.00-1.30 xspk=747) EOSINOPHILS ABSOLUTE COUNT (BEAKER) (test 0.20 K/ L 0.00-0.50 dsdp=720) BASOPHILS ABSOLUTE COUNT (BEAKER) (test 0.02 K/ L 0.00-0.20 phcb=024) 0.00POCT-GLUCOSE [id number] 05:03:00 Test Item Value Reference Range Comments POC-GLUCOSE METER (BEAKER) 142 mg/dL 70-110 TESTED AT [address] (test lbhi=9230) [facility] [id number] POCT-GLUCOSE [id number] 20:57:00 Test Item Value Reference Range Comments POC-GLUCOSE METER (BEAKER) 256 mg/dL 70-110 TESTED AT [address] (test szug=7501) [facility] [id number] POCT-GLUCOSE [id number] 18:11:00 Test Item Value Reference Range Comments POC-GLUCOSE METER (BEAKER) 243 mg/dL 70-110 TESTED AT [address] (test xwpn=9857) [place] [address] POCT-GLUCOSE [id number] 11:42:00 Test Item Value Reference Range Comments POC-GLUCOSE METER (BEAKER) 158 mg/dL 70-110 TESTED AT [address] (test swqn=5911) [place] [id number] POCT-GLUCOSE [id number] 09:13:00 Test Item Value Reference Range Comments POC-GLUCOSE METER (BEAKER) 163 mg/dL 70-110 TESTED AT [address] (test nxal=1897) [place] [id number] POCT-GLUCOSE [id number] 09:13:00 Test Item Value Reference Range Comments POC-GLUCOSE METER (BEAKER) 110 mg/dL 70-110 TESTED AT [address] (test ybpy=5510) [place] [id number] POCT-GLUCOSE [id number] 06:04:00 Test Item Value Reference Range Comments POC-GLUCOSE METER (BEAKER) 131 mg/dL 70-110 TESTED AT [address] (test lsmg=9717) [place] [address] [id number] 04:25:00 Test Item Value Reference Range Comments MAGNESIUM (BEAKER) (test qrsw=037) 2.3 mg/dL 1.6-2.6 BASIC METABOLIC [id number] 04:25:00 Test Item Value Reference Range Comments SODIUM (BEAKER) (test 136 meq/L 136-145 gktz=929) POTASSIUM (BEAKER) (test 4.1 meq/L 3.5-5.1 nkcw=175) CHLORIDE (BEAKER) (test 105 meq/L 98-107 qarh=591) CO2 (BEAKER) (test 22 meq/L 22-29 oaxd=311) BLOOD UREA NITROGEN 27 mg/dL 7-21 (BEAKER) (test mpzb=860) CREATININE (BEAKER) (test 0.87 mg/dL 0.57-1.25 vuur=403) GLUCOSE RANDOM (BEAKER) 155 mg/dL 70-105 (test ilwc=069) CALCIUM (BEAKER) (test 8.4 mg/dL 8.4-10.2 sypv=938) EGFR (BEAKER) (test 92 mL/min/1.73 sq m ESTIMATED GFR IS NOT sysv=6598) ACCURATE CREATININE CLEARANCE IN PREDICTING GLOMERULAR FILTRATION RATE. ESTIMATED GFR IS NOT APPLICABLE FOR DIALYSIS PATIENTS. CBC W/PLT COUNT & AUTO [id number] 04:14:00 Test Item Value Reference Range Comments WHITE BLOOD CELL COUNT (BEAKER) (test ssmq=078) 10.9 K/ L 4.0-10.0 RED BLOOD CELL COUNT (BEAKER) (test tfla=489) 2.69 M/ L 4.20-5.80 HEMOGLOBIN (BEAKER) (test eiwi=719) 8.1 GM/DL 13.0-16.8 HEMATOCRIT (BEAKER) (test vzkf=113) 24.9 % 40.0-50.0 MEAN CORPUSCULAR VOLUME (BEAKER) (test scni=202) 92.7 fL 82.0-98.0 MEAN CORPUSCULAR HEMOGLOBIN (BEAKER) (test 30.0 pg 27.0-33.0 izuv=529) MEAN CORPUSCULAR HEMOGLOBIN CONC (BEAKER) (test 32.3 GM/DL 32.0-36.0 qhej=786) RED CELL DISTRIBUTION WIDTH (BEAKER) (test 13.4 % 10.3-14.2 zbmz=940) PLATELET COUNT (BEAKER) (test uebk=079) 134 K/CU MM 150-430 MEAN PLATELET VOLUME (BEAKER) (test oome=851) 8.0 fL 6.5-10.5 NUCLEATED RED BLOOD CELLS (BEAKER) (test 0 /100 WBC 0-0 mtsk=428) NEUTROPHILS RELATIVE PERCENT (BEAKER) (test 80 % bxtm=944) LYMPHOCYTES RELATIVE PERCENT (BEAKER) (test 12 % iojf=231) MONOCYTES RELATIVE PERCENT (BEAKER) (test 8 % owzg=806) EOSINOPHILS RELATIVE PERCENT (BEAKER) (test 1 % jfme=651) BASOPHILS RELATIVE PERCENT (BEAKER) (test 0 % klgk=198) NEUTROPHILS ABSOLUTE COUNT (BEAKER) (test 8.64 K/ L 1.80-8.00 htwk=910) LYMPHOCYTES ABSOLUTE COUNT (BEAKER) (test 1.27 K/ L 1.48-4.50 vlib=802) MONOCYTES ABSOLUTE COUNT (BEAKER) (test 0.82 K/ L 0.00-1.30 zhbd=463) EOSINOPHILS ABSOLUTE COUNT (BEAKER) (test 0.11 K/ L 0.00-0.50 lbxz=230) BASOPHILS ABSOLUTE COUNT (BEAKER) (test 0.02 K/ L 0.00-0.20 ybet=377) 0.00POCT-GLUCOSE [id number] 03:20:00 Test Item Value Reference Range Comments POC-GLUCOSE METER (BEAKER) 170 mg/dL 70-110 TESTED AT [address] (test qukg=4573) [facility] [address] POCT-GLUCOSE [id number] 01:40:00 Test Item Value Reference Range Comments POC-GLUCOSE METER (BEAKER) 216 mg/dL 70-110 TESTED AT [address] (test wptb=8088) [facility] [address] POCT-GLUCOSE [id number] 00:08:00 Test Item Value Reference Range Comments POC-GLUCOSE METER (BEAKER) 227 mg/dL 70-110 TESTED AT [address] (test zenv=5675) [facility] [address] POCT-GLUCOSE [id number] 22:37:00 Test Item Value Reference Range Comments POC-GLUCOSE METER (BEAKER) 262 mg/dL 70-110 TESTED AT [address] (test obct=8722) [facility] [address] POCT-GLUCOSE [id number] 20:41:00 Test Item Value Reference Range Comments POC-GLUCOSE METER (BEAKER) 318 mg/dL 70-110 Notified MAHAMED CRISTINA/TESTED AT [facility] (test vwrn=6914) [address] [place] [address] POCT-GLUCOSE [id number] 18:55:00 Test Item Value Reference Range Comments POC-GLUCOSE METER (BEAKER) 363 mg/dL 70-110 Notified MAHAMED CRISTINA/TESTED AT [facility] (test ocus=8550) [address] [place] [address] POCT-GLUCOSE [id number] 18:03:00 Test Item Value Reference Range Comments POC-GLUCOSE METER (BEAKER) 408 mg/dL 70-110 Notified MAHAMED CRISTINA/TESTED AT [facility] (test qtcc=0434) [address] [place] [address] POCT-GLUCOSE [id number] 16:43:00 Test Item Value Reference Range Comments POC-GLUCOSE METER (BEAKER) 413 mg/dL 70-110 Notified MAHAMED CRISTINA/TESTED AT [facility] (test cqqn=5729) [address] [place] [address] POCT-GLUCOSE [id number] 11:39:00 Test Item Value Reference Range Comments POC-GLUCOSE METER (BEAKER) 332 mg/dL 70-110 Notified MAHAMED CRISTINA/TESTED AT [facility] (test kiwt=4873) [address] [place] [address] POCT-GLUCOSE [id number] 09:06:00 Test Item Value Reference Range Comments POC-GLUCOSE METER (BEAKER) 173 mg/dL 70-110 TESTED AT [address] (test yebf=6284) [facility] [address] POCT-GLUCOSE [id number] 07:16:00 Test Item Value Reference Range Comments POC-GLUCOSE METER (BEAKER) 128 mg/dL 70-110 TESTED AT [address] (test llnd=3520) [place] [id number] 05:44:00 Test Item Value Reference Range Comments ACTIVATED CLOTTING TIME 121 sec TESTED AT [place] [address] [address] (BEAKER) (test sfjv=972) [place] [address] [id number] 05:44:00 Test Item Value Reference Range Comments ACTIVATED CLOTTING TIME 611 sec TESTED AT [place] [address] [address] (BEAKER) (test sayo=313) [place] [address] [id number] 05:44:00 Test Item Value Reference Range Comments ACTIVATED CLOTTING TIME 858 sec TESTED AT [place] [address] [address] (BEAKER) (test mldu=702) [place] [address] [id number] 05:44:00 Test Item Value Reference Range Comments ACTIVATED CLOTTING TIME 554 sec TESTED AT [facility] [address] (BEAKER) (test fkdk=795) [place] [address] CBC W/PLT COUNT & AUTO [id number] 04:59:00 Test Item Value Reference Range Comments WHITE BLOOD CELL COUNT (BEAKER) (test oynu=821) 8.8 K/ L 4.0-10.0 RED BLOOD CELL COUNT (BEAKER) (test ajql=273) 2.91 M/ L 4.20-5.80 HEMOGLOBIN (BEAKER) (test dxhq=016) 9.0 GM/DL 13.0-16.8 HEMATOCRIT (BEAKER) (test iqku=597) 27.1 % 40.0-50.0 MEAN CORPUSCULAR VOLUME (BEAKER) (test upzu=594) 92.9 fL 82.0-98.0 MEAN CORPUSCULAR HEMOGLOBIN (BEAKER) (test 31.0 pg 27.0-33.0 lzrg=281) MEAN CORPUSCULAR HEMOGLOBIN CONC (BEAKER) (test 33.3 GM/DL 32.0-36.0 dhno=488) RED CELL DISTRIBUTION WIDTH (BEAKER) (test 13.2 % 10.3-14.2 lotv=614) PLATELET COUNT (BEAKER) (test pomc=928) 134 K/CU MM 150-430 MEAN PLATELET VOLUME (BEAKER) (test tadu=520) 8.1 fL 6.5-10.5 NUCLEATED RED BLOOD CELLS (BEAKER) (test 0 /100 WBC 0-0 gdnu=213) NEUTROPHILS RELATIVE PERCENT (BEAKER) (test 80 % uela=997) LYMPHOCYTES RELATIVE PERCENT (BEAKER) (test 13 % djhs=605) MONOCYTES RELATIVE PERCENT (BEAKER) (test 6 % abyw=534) EOSINOPHILS RELATIVE PERCENT (BEAKER) (test 0 % niow=572) BASOPHILS RELATIVE PERCENT (BEAKER) (test 0 % hrls=347) NEUTROPHILS ABSOLUTE COUNT (BEAKER) (test 7.07 K/ L 1.80-8.00 ajaw=033) LYMPHOCYTES ABSOLUTE COUNT (BEAKER) (test 1.18 K/ L 1.48-4.50 onsr=032) MONOCYTES ABSOLUTE COUNT (BEAKER) (test 0.51 K/ L 0.00-1.30 tgav=640) EOSINOPHILS ABSOLUTE COUNT (BEAKER) (test 0.04 K/ L 0.00-0.50 wesz=999) BASOPHILS ABSOLUTE COUNT (BEAKER) (test 0.01 K/ L 0.00-0.20 ddom=692) [id number] 04:59:00 Test Item Value Reference Range Comments MAGNESIUM (BEAKER) (test pvhe=578) 2.0 mg/dL 1.6-2.6 BASIC METABOLIC [id number] 04:59:00 Test Item Value Reference Range Comments SODIUM (BEAKER) (test 142 meq/L 136-145 cvyv=593) POTASSIUM (BEAKER) (test 4.6 meq/L 3.5-5.1 okde=726) CHLORIDE (BEAKER) (test 112 meq/L 98-107 yazx=634) CO2 (BEAKER) (test 23 meq/L 22-29 qexi=202) BLOOD UREA NITROGEN 20 mg/dL 7-21 (BEAKER) (test yvvl=873) CREATININE (BEAKER) (test 0.82 mg/dL 0.57-1.25 rxgj=175) GLUCOSE RANDOM (BEAKER) 118 mg/dL 70-105 (test rqrc=640) CALCIUM (BEAKER) (test 8.3 mg/dL 8.4-10.2 lhza=906) EGFR (BEAKER) (test 99 mL/min/1.73 sq m ESTIMATED GFR IS NOT cyez=5845) ACCURATE CREATININE CLEARANCE IN PREDICTING GLOMERULAR FILTRATION RATE. ESTIMATED GFR IS NOT APPLICABLE FOR DIALYSIS PATIENTS. POCT-GLUCOSE [id number] 02:19:00 Test Item Value Reference Range Comments POC-GLUCOSE METER (BEAKER) 137 mg/dL 70-110 TESTED AT [address] (test kade=7911) [facility] [address] POCT-GLUCOSE [id number] 23:33:00 Test Item Value Reference Range Comments POC-GLUCOSE METER (BEAKER) 118 mg/dL 70-110 TESTED AT [address] (test pwnw=7741) [place] [id number] POCT-GLUCOSE [id number] 19:30:00 Test Item Value Reference Range Comments POC-GLUCOSE METER (BEAKER) 109 mg/dL 70-110 TESTED AT [address] (test lztu=0323) [place] [id number] POCT-GLUCOSE [id number] 18:24:00 Test Item Value Reference Range Comments POC-GLUCOSE METER (BEAKER) 101 mg/dL 70-110 TESTED AT [address] (test qetp=1237) [facility] [address] GLUCOSE-STAT [id number] 16:59:00 Test Item Value Reference Range Comments GLUCOSE RANDOM (BEAKER) (test hojs=791) 108 mg/dL 70-110 HGB/HCT (H&H) - STAT [id number] 16:59:00 Test Item Value Reference Range Comments HEMOGLOBIN (BEAKER) (test fmhd=632) 9.0 g/dL 13.0-16.8 HEMATOCRIT (BEAKER) (test tymq=131) 26.0 % 40.0-50.0 BLOOD GAS, [id number] 16:59:00 Test Item Value Reference Range Comments PH ARTERIAL (BEAKER) (test ykke=366) 7.37 7.35-7.45 PCO2 ARTERIAL (BEAKER) (test hmeu=676) 42 mmHg 35-45 PO2 ARTERIAL (BEAKER) (test mqsv=692) 101 mmHg 80-90 O2 SATURATION ARTERIAL (BEAKER) (test ngrx=630) 97.5 % 96.0-97.0 HCO3 ARTERIAL (BEAKER) (test hdre=652) 24 mmol/L 21-29 BASE EXCESS ARTERIAL (BEAKER) (test ajhx=669) -1.7 mmol/L -2.0-3.0 PATIENT TEMPERATURE (BEAKER) (test umpa=0981) 36.9 C FIO2 (BEAKER) (test axib=8305) 36.0 % POCT-GLUCOSE [id number] 15:37:00 Test Item Value Reference Range Comments POC-GLUCOSE METER (BEAKER) 152 mg/dL 70-110 TESTED AT [address] (test xmag=3191) [facility] [address] [id number] 15:11:00 Test Item Value Reference Range Comments MAGNESIUM (BEAKER) (test scqj=499) 2.1 mg/dL 1.6-2.6 [id number] 15:10:00 Test Item Value Reference Range Comments POTASSIUM (BEAKER) (test gzkp=382) 4.0 meq/L 3.5-5.1 POCT-GLUCOSE [id number] 15:03:00 Test Item Value Reference Range Comments POC-GLUCOSE METER (BEAKER) 180 mg/dL 70-110 TESTED AT [facility] [address] [facility] (test jorm=3320) [facility] [address] POCT-GLUCOSE [id number] 13:33:00 Test Item Value Reference Range Comments POC-GLUCOSE METER (BEAKER) 213 mg/dL 70-110 TESTED AT [address] (test rorz=6784) [facility] [address] POCT-GLUCOSE [id number] 13:33:00 Test Item Value Reference Range Comments POC-GLUCOSE METER (BEAKER) 252 mg/dL 70-110 TESTED AT [address] (test urly=9795) [facility] [address] BASIC METABOLIC [id number] 13:30:00 Test Item Value Reference Range Comments SODIUM (BEAKER) (test 136 meq/L 136-145 frrf=496) POTASSIUM (BEAKER) (test 4.3 meq/L 3.5-5.1 Specimen slightly ujjw=339) hemolyzed CHLORIDE (BEAKER) (test 109 meq/L 98-107 rxeq=210) CO2 (BEAKER) (test 19 meq/L 22-29 gwqt=571) BLOOD UREA NITROGEN 22 mg/dL 7-21 (BEAKER) (test iowp=963) CREATININE (BEAKER) (test 0.92 mg/dL 0.57-1.25 Specimen slightly kzow=300) hemolyzed GLUCOSE RANDOM (BEAKER) 250 mg/dL 70-105 (test usnx=164) CALCIUM (BEAKER) (test 7.8 mg/dL 8.4-10.2 tgau=228) EGFR (BEAKER) (test 86 mL/min/1.73 sq m ESTIMATED GFR IS NOT ytnq=0645) ACCURATE CREATININE CLEARANCE IN PREDICTING GLOMERULAR FILTRATION RATE. ESTIMATED GFR IS NOT APPLICABLE FOR DIALYSIS PATIENTS. LACTIC ACID, ARTERIAL, WHOLE [id number] 13:01:00 Test Item Value Reference Range Comments LACTATE BLOOD ARTERIAL (2) 1.4 mmol/L 0.5-2.2 Specimen slightly hemolyzed (BEAKER) (test rdme=2946) Effective 10/22/2015: Units/Reference Range ChangeNew: 0.5-2.2 mmol/L Previous: 5 -20 mg/dLBLOOD GAS, [id number] 12:31:00 Test Item Value Reference Range Comments PH ARTERIAL (BEAKER) (test vgru=866) 7.30 7.35-7.45 PCO2 ARTERIAL (BEAKER) (test yxev=255) 44 mmHg 35-45 PO2 ARTERIAL (BEAKER) (test mhzj=022) 222 mmHg 80-90 O2 SATURATION ARTERIAL (BEAKER) (test agds=415) 99.4 % 96.0-97.0 HCO3 ARTERIAL (BEAKER) (test ypsl=842) 21 mmol/L 21-29 BASE EXCESS ARTERIAL (BEAKER) (test wqpn=929) -5.3 mmol/L -2.0-3.0 PATIENT TEMPERATURE (BEAKER) (test feei=4633) 37.0 C FIO2 (BEAKER) (test oses=4289) 60.0 % HGB/HCT (H&H) - STAT [id number] 12:31:00 Test Item Value Reference Range Comments HEMOGLOBIN (BEAKER) (test ecot=056) 10.2 g/dL 13.0-16.8 HEMATOCRIT (BEAKER) (test ovqv=050) 30.0 % 40.0-50.0 GLUCOSE-STAT [id number] 12:31:00 Test Item Value Reference Range Comments GLUCOSE RANDOM (BEAKER) (test eimj=658) 239 mg/dL 70-110 POTASSIUM-STAT [id number] 12:30:00 Test Item Value Reference Range Comments POTASSIUM (BEAKER) (test wuax=326) 4.1 meq/L 3.6-5.5 CBC W/PLT COUNT & AUTO [id number] 12:24:00 Test Item Value Reference Range Comments WHITE BLOOD CELL COUNT (BEAKER) (test ueur=306) 12.6 K/ L 4.0-10.0 RED BLOOD CELL COUNT (BEAKER) (test nuvc=782) 3.27 M/ L 4.20-5.80 HEMOGLOBIN (BEAKER) (test wrvh=452) 10.2 GM/DL 13.0-16.8 HEMATOCRIT (BEAKER) (test vtju=702) 29.6 % 40.0-50.0 MEAN CORPUSCULAR VOLUME (BEAKER) (test tvpm=401) 90.5 fL 82.0-98.0 MEAN CORPUSCULAR HEMOGLOBIN (BEAKER) (test 31.1 pg 27.0-33.0 xjsh=385) MEAN CORPUSCULAR HEMOGLOBIN CONC (BEAKER) (test 34.4 GM/DL 32.0-36.0 owob=656) RED CELL DISTRIBUTION WIDTH (BEAKER) (test 14.2 % 10.3-14.2 qprj=078) PLATELET COUNT (BEAKER) (test skxc=105) 137 K/CU MM 150-430 MEAN PLATELET VOLUME (BEAKER) (test vrny=353) 8.1 fL 6.5-10.5 NUCLEATED RED BLOOD CELLS (BEAKER) (test 0 /100 WBC 0-0 rfjj=211) NEUTROPHILS RELATIVE PERCENT (BEAKER) (test 85 % vujp=917) LYMPHOCYTES RELATIVE PERCENT (BEAKER) (test 13 % jwya=892) MONOCYTES RELATIVE PERCENT (BEAKER) (test 2 % bztq=010) EOSINOPHILS RELATIVE PERCENT (BEAKER) (test 1 % jezi=733) BASOPHILS RELATIVE PERCENT (BEAKER) (test 0 % lkye=095) NEUTROPHILS ABSOLUTE COUNT (BEAKER) (test 10.60 K/ L 1.80-8.00 odcn=393) LYMPHOCYTES ABSOLUTE COUNT (BEAKER) (test 1.59 K/ L 1.48-4.50 ftmi=020) MONOCYTES ABSOLUTE COUNT (BEAKER) (test 0.27 K/ L 0.00-1.30 benk=132) EOSINOPHILS ABSOLUTE COUNT (BEAKER) (test 0.06 K/ L 0.00-0.50 qnfn=292) BASOPHILS ABSOLUTE COUNT (BEAKER) (test 0.02 K/ L 0.00-0.20 xifr=041) [id number] 12:18:00 Test Item Value Reference Range Comments FIBRINOGEN LEVEL (BEAKER) (test lcij=817) 279 mg/dl 225-434 [id number] 12:18:00 Test Item Value Reference Range Comments PARTIAL THROMBOPLASTIN TIME (BEAKER) (test 33.1 seconds 22.5-36.0 dprd=870) PROTHROMBIN [id number] 12:17:00 Test Item Value Reference Range Comments PROTIME (BEAKER) (test upgy=144) 16.4 seconds 11.7-14.7 INR (BEAKER) (test gcam=671) 1.3 <=5.9 RECOMMENDED COUMADIN/WARFARIN INR THERAPY RANGESSTANDARD DOSE: 2.0 - 3.0 Includes: PROPHYLAXIS forvenous thrombosis, systemic embolization; TREATMENT for venous thrombosis and/or pulmonary embolus.HIGH RISK: Target INR is 2.5-3.5 for patients with mechanical heart valves.OXYGEN SATURATION, [id number] 12:02:00 Test Item Value Reference Range Comments O2 SATURATION (MEASURED) (BEAKER) (test zsul=8079) 74.7 % CALCIUM, [id number] 11:58:00 Test Item Value Reference Range Comments CALCIUM IONIZED (BEAKER) (test dvdr=341) 1.17 mmol/L 1.12-1.27 PH, BLOOD (BEAKER) (test xesy=4803) 7.29 THROMBOELASTOGRAPH (TEG)[id number] 11:02:00 Test Item Value Reference Range Comments TEG ACTIVATED CLOTTING TIME (BEAKER) (test 4.4 minutes 4.0-7.0 vxnv=5984) TEG FIBRINOGEN ACTIVITY (BEAKER) (test 71.9 degrees 61.0-73.0 ecum=9788) TEG PLT. AGGREGATION (BEAKER) (test rzjw=1007) 47.5 MM 55.0-65.0 TGH ACTIVATED CLOTTING TIME (BEAKER) (test 5.3 minutes 4.0-7.0 lovz=3531) TGH FIBRINOGEN ACTIVITY (BEAKER) (test 68.1 degrees 61.0-73.0 kzdi=2727) TGH PLT. AGGREGATION (BEAKER) (test ctvu=9920) 50.1 MM 55.0-65.0 PLATELET [id number] 10:45:00 Test Item Value Reference Range Comments PLATELET COUNT (BEAKER) (test rvoh=650) 114 K/CU MM 150-430 BLOOD GAS, [id number] 10:42:00 Test Item Value Reference Range Comments PH ARTERIAL (BEAKER) (test qekb=483) 7.36 7.35-7.45 PCO2 ARTERIAL (BEAKER) (test sgmt=514) 40 mmHg 35-45 PO2 ARTERIAL (BEAKER) (test dmmm=683) 81 mmHg 80-90 O2 SATURATION ARTERIAL (BEAKER) (test auwz=040) 96.5 % 96.0-97.0 HCO3 ARTERIAL (BEAKER) (test hmyy=746) 23 mmol/L 21-29 BASE EXCESS ARTERIAL (BEAKER) (test auos=560) -3.2 mmol/L -2.0-3.0 PATIENT TEMPERATURE (BEAKER) (test dqvd=9140) 35.1 C FIO2 (BEAKER) (test ctgk=6345) 40.0 % SODIUM NA-STAT [id number] 10:42:00 Test Item Value Reference Range Comments SODIUM (BEAKER) (test wary=000) 132 meq/L 135-148 GLUCOSE-STAT [id number] 10:42:00 Test Item Value Reference Range Comments GLUCOSE RANDOM (BEAKER) (test tfqs=924) 251 mg/dL 70-110 HGB/HCT (H&H) - STAT [id number] 10:42:00 Test Item Value Reference Range Comments HEMOGLOBIN (BEAKER) (test aubk=680) 8.9 g/dL 13.0-16.8 HEMATOCRIT (BEAKER) (test znkb=714) 26.0 % 40.0-50.0 CALCIUM, [id number] 10:42:00 Test Item Value Reference Range Comments CALCIUM IONIZED (BEAKER) (test taql=714) 0.94 mmol/L 1.12-1.27 PH, BLOOD (BEAKER) (test ktgj=0637) 7.33 POTASSIUM-STAT [id number] 10:41:00 Test Item Value Reference Range Comments POTASSIUM (BEAKER) (test mlhq=927) 4.2 meq/L 3.6-5.5 [id number] 10:31:00 Test Item Value Reference Range Comments FIBRINOGEN LEVEL (BEAKER) (test lraf=260) 287 mg/dl 225-434 [id number] 10:31:00 Test Item Value Reference Range Comments PARTIAL THROMBOPLASTIN TIME (BEAKER) (test 36.2 seconds 22.5-36.0 sdem=574) PROTHROMBIN [id number] 10:30:00 Test Item Value Reference Range Comments PROTIME (BEAKER) (test qxqv=863) 18.5 seconds 11.7-14.7 INR (BEAKER) (test kylo=093) 1.6 <=5.9 RECOMMENDED COUMADIN/WARFARIN INR THERAPY RANGESSTANDARD DOSE: 2.0 - 3.0 Includes: PROPHYLAXIS forvenous thrombosis, systemic embolization; TREATMENT for venous thrombosis and/or pulmonary embolus.HIGH RISK: Target INR is 2.5-3.5 for patients with mechanical heart valves.BLOOD GAS, [id number] 10:21:00 Test Item Value Reference Range Comments PH ARTERIAL (BEAKER) (test qcwv=415) 7.30 7.35-7.45 PCO2 ARTERIAL (BEAKER) (test zatg=992) 51 mmHg 35-45 PO2 ARTERIAL (BEAKER) (test sxoj=203) 241 mmHg 80-90 O2 SATURATION ARTERIAL (BEAKER) (test csny=757) 99.5 % 96.0-97.0 HCO3 ARTERIAL (BEAKER) (test xgdi=920) 25 mmol/L 21-29 BASE EXCESS ARTERIAL (BEAKER) (test wxvm=992) -2.5 mmol/L -2.0-3.0 PATIENT TEMPERATURE (BEAKER) (test inar=0188) 35.2 C FIO2 (BEAKER) (test vbqd=0115) 70.0 % SODIUM NA-STAT [id number] 10:21:00 Test Item Value Reference Range Comments SODIUM (BEAKER) (test pmdu=200) 130 meq/L 135-148 GLUCOSE-STAT [id number] 10:21:00 Test Item Value Reference Range Comments GLUCOSE RANDOM (BEAKER) (test gtli=534) 261 mg/dL 70-110 HGB/HCT (H&H) - STAT [id number] 10:21:00 Test Item Value Reference Range Comments HEMOGLOBIN (BEAKER) (test vcro=315) 9.2 g/dL 13.0-16.8 HEMATOCRIT (BEAKER) (test deis=477) 27.0 % 40.0-50.0 POTASSIUM-STAT [id number] 10:20:00 Test Item Value Reference Range Comments POTASSIUM (BEAKER) (test befl=479) 4.7 meq/L 3.6-5.5 CALCIUM, [id number] 10:18:00 Test Item Value Reference Range Comments CALCIUM IONIZED (BEAKER) (test ahzo=250) 1.12 mmol/L 1.12-1.27 PH, BLOOD (BEAKER) (test qnbb=4273) 7.27 POTASSIUM-STAT [id number] 09:54:00 Test Item Value Reference Range Comments POTASSIUM (BEAKER) (test wmpe=177) 4.9 meq/L 3.6-5.5 BLOOD GAS, [id number] 09:54:00 Test Item Value Reference Range Comments PH ARTERIAL (BEAKER) (test mmyg=084) 7.33 7.35-7.45 PCO2 ARTERIAL (BEAKER) (test tduy=542) 46 mmHg 35-45 PO2 ARTERIAL (BEAKER) (test qhbz=193) 269 mmHg 80-90 O2 SATURATION ARTERIAL (BEAKER) (test rcds=759) 99.6 % 96.0-97.0 HCO3 ARTERIAL (BEAKER) (test vrzl=113) 24 mmol/L 21-29 BASE EXCESS ARTERIAL (BEAKER) (test lshq=233) -2.5 mmol/L -2.0-3.0 PATIENT TEMPERATURE (BEAKER) (test qdek=5183) 36.0 C FIO2 (BEAKER) (test zytv=5782) 70.0 % SODIUM NA-STAT [id number] 09:54:00 Test Item Value Reference Range Comments SODIUM (BEAKER) (test mvyx=993) 130 meq/L 135-148 GLUCOSE-STAT [id number] 09:54:00 Test Item Value Reference Range Comments GLUCOSE RANDOM (BEAKER) (test pxrb=607) 189 mg/dL 70-110 HGB/HCT (H&H) - STAT [id number] 09:54:00 Test Item Value Reference Range Comments HEMOGLOBIN (BEAKER) (test yuyl=388) 8.7 g/dL 13.0-16.8 HEMATOCRIT (BEAKER) (test jkrh=473) 26.0 % 40.0-50.0 BLOOD GAS, [id number] 09:34:00 Test Item Value Reference Range Comments PH ARTERIAL (BEAKER) (test doco=879) 7.36 7.35-7.45 PCO2 ARTERIAL (BEAKER) (test mqad=898) 42 mmHg 35-45 PO2 ARTERIAL (BEAKER) (test yzbm=701) 314 mmHg 80-90 O2 SATURATION ARTERIAL (BEAKER) (test utqq=693) 99.7 % 96.0-97.0 HCO3 ARTERIAL (BEAKER) (test wkeb=782) 25 mmol/L 21-29 BASE EXCESS ARTERIAL (BEAKER) (test zmft=762) -2.3 mmol/L -2.0-3.0 PATIENT TEMPERATURE (BEAKER) (test zpfg=6684) 31.0 C FIO2 (BEAKER) (test jibq=0185) 70.0 % SODIUM NA-STAT [id number] 09:34:00 Test Item Value Reference Range Comments SODIUM (BEAKER) (test rpqh=186) 127 meq/L 135-148 POTASSIUM-STAT [id number] 09:34:00 Test Item Value Reference Range Comments POTASSIUM (BEAKER) (test wxso=987) 5.5 meq/L 3.6-5.5 GLUCOSE-STAT [id number] 09:34:00 Test Item Value Reference Range Comments GLUCOSE RANDOM (BEAKER) (test bjus=280) 177 mg/dL 70-110 HGB/HCT (H&H) - STAT [id number] 09:34:00 Test Item Value Reference Range Comments HEMOGLOBIN (BEAKER) (test lvpi=216) 7.9 g/dL 13.0-16.8 HEMATOCRIT (BEAKER) (test vdxu=464) 23.0 % 40.0-50.0 BLOOD GAS, [id number] 09:33:00 Test Item Value Reference Range Comments PH VENOUS (BEAKER) (test ygvt=378) 7.33 7.32-7.42 PCO2 VENOUS (BEAKER) (test tane=872) 49 mmHg 41-51 PO2 VENOUS (BEAKER) (test kwiy=697) 44 mmHg 25-40 O2 SATURATION VENOUS (BEAKER) (test vhqq=633) 89.4 % 40.0-70.0 HCO3 VENOUS (BEAKER) (test jaza=727) 28 mmol/L 21-29 BASE EXCESS VENOUS (BEAKER) (test frzs=860) -0.1 mmol/L -2.0-3.0 PATIENT TEMPERATURE (BEAKER) (test awwv=3654) 31.0 C FIO2 (BEAKER) (test vqzq=5846) 70.0 % SODIUM NA-STAT [id number] 08:42:00 Test Item Value Reference Range Comments SODIUM (BEAKER) (test tobu=225) 135 meq/L 135-148 BLOOD GAS, [id number] 08:42:00 Test Item Value Reference Range Comments PH ARTERIAL (BEAKER) (test vvyj=723) 7.47 7.35-7.45 PCO2 ARTERIAL (BEAKER) (test rovq=058) 37 mmHg 35-45 PO2 ARTERIAL (BEAKER) (test hfjr=988) 405 mmHg 80-90 O2 SATURATION ARTERIAL (BEAKER) (test dzyw=755) 99.8 % 96.0-97.0 HCO3 ARTERIAL (BEAKER) (test ffuh=372) 27 mmol/L 21-29 BASE EXCESS ARTERIAL (BEAKER) (test efch=327) 2.6 mmol/L -2.0-3.0 PATIENT TEMPERATURE (BEAKER) (test ynjr=4317) 36.4 C FIO2 (BEAKER) (test mlmf=0962) 100.0 % POTASSIUM-STAT [id number] 08:42:00 Test Item Value Reference Range Comments POTASSIUM (BEAKER) (test imwj=805) 3.3 meq/L 3.6-5.5 GLUCOSE-STAT [id number] 08:42:00 Test Item Value Reference Range Comments GLUCOSE RANDOM (BEAKER) (test fnjp=997) 214 mg/dL 70-110 HGB/HCT (H&H) - STAT [id number] 08:42:00 Test Item Value Reference Range Comments HEMOGLOBIN (BEAKER) (test lvcb=894) 13.2 g/dL 13.0-16.8 HEMATOCRIT (BEAKER) (test umsy=280) 39.0 % 40.0-50.0 CALCIUM, [id number] 08:42:00 Test Item Value Reference Range Comments CALCIUM IONIZED (BEAKER) (test rgux=344) 1.08 mmol/L 1.12-1.27 PH, BLOOD (BEAKER) (test nhdo=0171) 7.46 POCT-GLUCOSE [id number] 06:55:00 Test Item Value Reference Range Comments POC-GLUCOSE METER (BEAKER) 229 mg/dL 70-110 TESTED AT [facility] [address] [facility] (test pjez=6326) [facility] [address] HEMOGLOBIN [id number] 11:00:00 Test Item Value Reference Range Comments HEMOGLOBIN A1C (BEAKER) (test iazl=359) 15.1 % 4.3-6.1 BASIC METABOLIC [id number] 10:01:00 Test Item Value Reference Range Comments SODIUM (BEAKER) (test 135 meq/L 136-145 nhwp=935) POTASSIUM (BEAKER) (test 4.6 meq/L 3.5-5.1 rwnh=707) CHLORIDE (BEAKER) (test 100 meq/L 98-107 tvqd=887) CO2 (BEAKER) (test 23 meq/L 22-29 hdfk=528) BLOOD UREA NITROGEN 19 mg/dL 7-21 (BEAKER) (test zwgo=856) CREATININE (BEAKER) (test 1.16 mg/dL 0.57-1.25 xkdo=743) GLUCOSE RANDOM (BEAKER) 352 mg/dL 70-105 (test muib=768) CALCIUM (BEAKER) (test 9.9 mg/dL 8.4-10.2 yfog=098) EGFR (BEAKER) (test 66 mL/min/1.73 sq m ESTIMATED GFR IS NOT xsbv=2764) ACCURATE CREATININE CLEARANCE IN PREDICTING GLOMERULAR FILTRATION RATE. ESTIMATED GFR IS NOT APPLICABLE FOR DIALYSIS PATIENTS. [id number] 09:46:00 Test Item Value Reference Range Comments PROTIME (BEAKER) (test vzvb=791) 12.4 seconds 11.7-14.7 INR (BEAKER) (test grah=389) 0.9 <=5.9 PARTIAL THROMBOPLASTIN TIME (BEAKER) (test 27.5 seconds 22.5-36.0 vjcf=564) RECOMMENDED COUMADIN/WARFARIN INR THERAPY RANGESSTANDARD DOSE: 2.0 - 3.0 Includes: PROPHYLAXIS forvenous thrombosis, systemic embolization; TREATMENT for venous thrombosis and/or pulmonary embolus.HIGH RISK: Target INR is 2.5-3.5 for patients with mechanical heart valves.CBC W/PLT COUNT & AUTO [id number] 09:40:00 Test Item Value Reference Range Comments WHITE BLOOD CELL COUNT (BEAKER) (test jngx=309) 8.9 K/ L 4.0-10.0 RED BLOOD CELL COUNT (BEAKER) (test topn=640) 5.02 M/ L 4.20-5.80 HEMOGLOBIN (BEAKER) (test inzp=900) 15.2 GM/DL 13.0-16.8 HEMATOCRIT (BEAKER) (test hwyp=619) 46.1 % 40.0-50.0 MEAN CORPUSCULAR VOLUME (BEAKER) (test xigs=281) 91.8 fL 82.0-98.0 MEAN CORPUSCULAR HEMOGLOBIN (BEAKER) (test 30.3 pg 27.0-33.0 gtcm=918) MEAN CORPUSCULAR HEMOGLOBIN CONC (BEAKER) (test 33.0 GM/DL 32.0-36.0 mohx=103) RED CELL DISTRIBUTION WIDTH (BEAKER) (test 13.4 % 10.3-14.2 rutw=038) PLATELET COUNT (BEAKER) (test jpuu=207) 219 K/CU MM 150-430 MEAN PLATELET VOLUME (BEAKER) (test sudn=182) 8.8 fL 6.5-10.5 NUCLEATED RED BLOOD CELLS (BEAKER) (test 0 /100 WBC 0-0 vaaw=463) NEUTROPHILS RELATIVE PERCENT (BEAKER) (test 68 % bqal=038) LYMPHOCYTES RELATIVE PERCENT (BEAKER) (test 25 % ndmy=116) MONOCYTES RELATIVE PERCENT (BEAKER) (test 4 % xgqp=684) EOSINOPHILS RELATIVE PERCENT (BEAKER) (test 2 % dukn=500) BASOPHILS RELATIVE PERCENT (BEAKER) (test 1 % obwy=933) NEUTROPHILS ABSOLUTE COUNT (BEAKER) (test 6.03 K/ L 1.80-8.00 zziy=847) LYMPHOCYTES ABSOLUTE COUNT (BEAKER) (test 2.25 K/ L 1.48-4.50 yfkq=591) MONOCYTES ABSOLUTE COUNT (BEAKER) (test 0.39 K/ L 0.00-1.30 nvkk=[id number]) EOSINOPHILS ABSOLUTE COUNT (BEAKER) (test 0.14 K/ L 0.00-0.50 prle=747) BASOPHILS ABSOLUTE COUNT (BEAKER) (test 0.06 K/ L 0.00-0.20 kxet=[id number]) 0.00
[2018-04-03 13:50] LABS: Absolute Lymphocytes (CBC) 1.8 K/uL (0.7-4.9); Absolute Monocytes 0.6 K/uL (0.1-1.3); Absolute Neutrophil 4.4 K/uL (1.8-8.0); Eosinophils % 2.5 % (0-4.4); Hematocrit 41.2 % (39.6-49.0); Lymphocytes % 25.8 % (15.3-44.8); MCH 29.7 pg (27.0-35.0); MCV 88.9 fL (80-100); MPV 9.8 fL (7.6-11.3); Monocytes % 8.7 % (3.3-12.3); RBC Red Blood Cell Count 4.64 M/uL (4.33-5.43)
[2018-04-03 13:53] LABS: Protime INR 0.97
[2018-04-03 14:13] LABS: ALT/SGPT 23 U/L (12-78); AST/SGOT 15 U/L (15-37); Albumin 3.3 g/dL (3.4-5.0); Alkaline Phosphatase 74 U/L (45-117); BUN Blood Urea Nitrogen 21 mg/dL (7-18); Bicarbonate 31 mmol/L (21-32); Bilirubin Direct 0.1 mg/dL (0-0.2); Bilirubin Total 0.4 mg/dL (0.2-1.0); Glucose Level 256 mg/dL (74-106); Magnesium 2.1 mg/dL (1.8-2.4); NT PRO-BNP 836 pg/mL (<125); Potassium 4.6 mmol/L (3.5-5.1); Protein, Total 7.6 g/dL (6.4-8.2); Sodium Level 135 mmol/L (136-145); Troponin (Emerg Dept Use Only) < 0.02 ng/mL (0.0-0.045)
--- NOTE | 2018-04-03 14:20 | RAD REPORT ---
EXAM DESCRIPTION: RAD - Chest Single View - 04/03/2018 2:07 pm CLINICAL HISTORY: CHEST PAIN Chest pain. COMPARISON: Chest Pa And Lat (2 Views) dated 01/06/2018; Chest Pa And Lat (2 Views) dated 05/03/2017; Chest Single View dated 04/16/2016; CHEST SINGLE VIEW dated 08/05/2015; Thorax Wo Con dated 09/20/2017 FINDINGS: Portable technique limits examination quality. Emphysematous changes are present throughout the lungs. Left upper lobe cavity and left lung base ill -defined opacities appear similar to comparative study. The heart is upper limit normal size with dannie nges of a prior CABG seen. No displaced fractures.
--- NOTE | 2018-04-03 14:41 | EDPHYS ---
Physician Documentation [facility] Name: Los Griggs Jr Age: 52 yrs Sex: Male : 1965 Arrival Date: 04/03/2018 Time: 13:23 Bed 23 Private MD: ED Physician Bienvenido Rubio HPI: 04/03 14:30 This 52 yrs old Male presents to ER via Wheelchair with complaints of Chest dannie Pain, Shortness Of Breath. 14:30 The patient or guardian reports chest pain that is located primarily in the substernal dannie area, epigastric area, anterior chest wall. Onset: 2 day(s) ago. The pain radiates to back. Associated signs and symptoms: Pertinent positives: shortness of breath. The chest pain is described as a heaviness, a pressure. Duration: The patient or guardian reports multiple episodes, with no pattern. Modifying factors: The symptoms are alleviated by nothing. the symptoms are aggravated by nothing. Severity of pain: At its worst the pain was mild moderate in the emergency department the pain is unchanged. The patient has not experienced similar symptoms in the past. Historical: - Allergies: 13:27 No Known Allergies; sv - Home Meds: 16:45 aspirin 81 mg Oral TbEC 1 tab once daily [Active]; Tresiba FlexTouch U-100 subcutaneous aj1 subcutaneous [Active]; Anoro Ellipta 62.5-25 mcg/actuation inhalation dsdv 1 puff once daily [Active]; prasugrel oral 10 mg oral twice daily [Active]; azithromycin 500 mg Oral tab 1 tab twice daily [Active]; rifampin 300 mg Oral cap 1 caps 2 times per day [Active]; ethambutol 400 mg oral tab three times daily [Active]; atorvastatin 40 mg oral tab 1 tab once daily [Active]; gabapentin 100 mg oral cap 1 caps 3 times per day [Active]; metoprolol tartrate 25 mg Oral tab 1 tab 2 times per day [Active]; - PMHx: 13:27 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 - Family history:: not pertinent. - Ebola Screening: : Patient denies travel to an Ebola-affected area in the 21 days before illness onset. - Social history:: Smoking status: Patient/guardian denies using tobacco. ROS: 14:30 Constitutional: Negative for fever, chills, and weight loss, Eyes: Negative for injury, dannie pain, redness, and discharge, ENT: Negative for injury, pain, and discharge, Neck: Negative for injury, pain, and swelling, Abdomen/GI: Negative for abdominal pain, nausea, vomiting, diarrhea, and constipation, Back: Negative for injury and pain, : Negative for injury, bleeding, discharge, and swelling, MS/Extremity: Negative for injury and deformity, Skin: Negative for injury, rash, and discoloration, Neuro: Negative for headache, weakness, numbness, tingling, and seizure, Psych: Negative for depression, anxiety, suicide ideation, homicidal ideation, and hallucinations, Allergy/Immunology: Negative for hives, rash, and allergies, Endocrine: Negative for neck swelling, polydipsia, polyuria, polyphagia, and marked weight changes, Hematologic/Lymphatic: Negative for swollen nodes, abnormal bleeding, and unusual bruising. 14:30 Cardiovascular: Positive for chest pain. 14:30 Respiratory: Positive for shortness of breath. Exam: 14:30 Constitutional: This is a well developed, well nourished patient who is awake, alert, dannie and in no acute distress. Head/Face: Normocephalic, atraumatic. Eyes: Pupils equal round and reactive to light, extra-ocular motions intact. Lids and lashes normal. Conjunctiva and sclera are non-icteric and not injected. Cornea within normal limits. Periorbital areas with no swelling, redness, or edema. ENT: Nares patent. No nasal discharge, no septal abnormalities noted. Tympanic membranes are normal and external auditory canals are clear. Oropharynx with no redness, swelling, or masses, exudates, or evidence of obstruction, uvula midline. Mucous membranes moist. Neck: Trachea midline, no thyromegaly or masses palpated, and no cervical lymphadenopathy. Supple, full range of motion without nuchal rigidity, or vertebral point tenderness. No Meningismus. Chest/axilla: Normal chest wall appearance and motion. Nontender with no deformity. No lesions are appreciated. Cardiovascular: Regular rate and rhythm with a normal S1 and S2. No gallops, murmurs, or rubs. Normal PMI, no JVD. No pulse deficits. Respiratory: Lungs have equal breath sounds bilaterally, clear to auscultation and percussion. No rales, rhonchi or wheezes noted. No increased work of breathing, no retractions or nasal flaring. Abdomen/GI: Soft, non-tender, with normal bowel sounds. No distension or tympany. No guarding or rebound. No evidence of tenderness throughout. Back: No spinal tenderness. No costovertebral tenderness. Full range of motion. Male : Normal genitalia with no discharge or lesions. Skin: Warm, dry with normal turgor. Normal color with no rashes, no lesions, and no evidence of cellulitis. MS/ Extremity: Pulses equal, no cyanosis. Neurovascular intact. Full, normal range of motion. Neuro: Awake and alert, GCS 15, oriented to person, place, time, and situation. Cranial nerves II-XII grossly intact. Motor strength 5/5 in all extremities. Sensory grossly intact. Cerebellar exam normal. Normal gait. Psych: Awake, alert, with orientation to person, place and time. Behavior, mood, and affect are within normal limits. Vital Signs: 13:26 BP 147 / 76; Pulse 71; Resp 18; Temp 97.4; Pulse Ox 99% ; Weight 97.52 kg; Height 5 ft. sv 10 in. (177.80 cm); Pain 4/10; 14:30 BP 237 / 78; Pulse 66; Resp 18; Pulse Ox 95% on R/A; aj1 15:30 BP 141 / 70; Pulse 63; Resp 18; Pulse Ox 95% on R/A; aj1 16:38 BP 120 / 70; Pulse 57; Resp 18; Pulse Ox 95% on R/A; aj1 13:26 Body Mass Index 30.85 (97.52 kg, 177.80 cm) sv MDM: 13:29 Patient medically screened. [facility] 14:32 Data reviewed: vital signs, nurses notes, lab test result(s), EKG, radiologic studies, dannie plain films. 04/03 13:36 Order name: Basic Metabolic Panel; Complete Time: 14:34 aj1 04/03 13:36 Order name: CBC with Diff; Complete Time: 14:34 [facility] 04/03 13:36 Order name: LFT's; Complete Time: 14:34 [facility] 04/03 13:36 Order name: Magnesium; Complete Time: 14:34 [facility] 04/03 13:36 Order name: NT PRO-BNP; Complete Time: 14:34 [facility] 04/03 13:36 Order name: PT-INR; Complete Time: 14:34 [facility] 04/03 13:36 Order name: Troponin (emerg Dept Use Only); Complete Time: 14:34 [facility] 04/03 13:52 Order name: Basic Metabolic Panel [facility] 04/03 13:52 Order name: CBC with Diff [facility] 04/03 13:52 Order name: LFT's [facility] 04/03 13:52 Order name: Magnesium [facility] 04/03 13:52 Order name: NT PRO-BNP [facility] 04/03 13:52 Order name: PT-INR [facility] 04/03 13:52 Order name: Troponin (emerg Dept Use Only) [facility] 04/03 13:36 Order name: XRAY Chest (1 view); Complete Time: 14:34 [facility] 04/03 13:36 Order name: EKG; Complete Time: 13:37 [facility] 04/03 13:52 Order name: Lipase [facility] 04/03 13:52 Order name: Blood Culture Adult (2) [facility] 04/03 13:52 Order name: Lactate; Complete Time: 14:43 [facility] 04/03 13:52 Order name: Procalcitonin; Complete Time: 15:49 [facility] 04/03 13:52 Order name: Urine Culture [facility] 04/03 14:38 Order name: CT Aorta for Dissection; Complete Time: 15:49 [facility] 04/03 15:12 Order name: Urine Dipstick--Ancillary (enter results) 04/03 15:51 Order name: Urine Dipstick-Ancillary [facility] 04/03 13:36 Order name: Cardiac monitoring; Complete Time: 13:53 [facility] 04/03 13:36 Order name: EKG - Nurse/Tech; Complete Time: 13:53 [facility] 04/03 13:36 Order name: IV Saline Lock; Complete Time: 13:53 [facility] 04/03 13:36 Order name: Labs collected and sent; Complete Time: 13:53 [facility] 04/03 13:36 Order name: O2 Per Protocol; Complete Time: 13:53 [facility] 04/03 13:36 Order name: O2 Sat Monitoring; Complete Time: 13:53 [facility] 04/03 13:52 Order name: Cardiac monitoring; Complete Time: 13:53 [facility] 04/03 13:52 Order name: EKG - Nurse/Tech; Complete Time: 13:53 [facility] 04/03 13:52 Order name: IV Saline Lock; Complete Time: 13:53 [facility] 04/03 13:52 Order name: Labs collected and sent; Complete Time: 13:53 [facility] 04/03 13:52 Order name: O2 Per Protocol; Complete Time: 13:53 [facility] 04/03 13:52 Order name: O2 Sat Monitoring; Complete Time: 13:53 [facility] 04/03 13:52 Order name: Urine Dipstick-Ancillary (obtain specimen); Complete Time: 14:58 [facility] 04/03 14:43 Order name: CONS Physician Consult EDNY Administered Medications: 15:08 Drug: Aspirin Chewable Tablet 162 mg Route: PO; kr2 15:08 Drug: Lopressor (metoprolol TARTRATE) 50 mg Route: PO; kr2 15:08 Drug: Pepcid 20 mg Route: IVP; Site: right antecubital; kr2 15:28 Drug: Lovenox 1 mg/kg Route: Sub-Q; Site: left lower abdomen; aj1 Disposition: 04/03/18 14:40 Hospitalization ordered by Leslie Gutierrez for Observation. Preliminary diagnosis are Diarrhea, unspecified, Chronic obstructive pulmonary disease, unspecified, Type 2 diabetes mellitus. - Bed requested for Telemetry/MedSurg (observation). - Status is Observation. aj1 - Condition is Fair. - Problem is new. - Symptoms have improved. UTI on Admission? No Signatures: Dispatcher [employer] EDNY Loren Phillips RN RN aj1 Emely Ruzi RN Minerva Rueda RN RN dw Anderson, Corey, MD MD cha Reaves, Karey RN RN kr2 Corrections: (The following items were deleted from the chart) 14:00 13:52 Chest Single View+RAD.RAD.BRZ ordered. EDNY EDNY 15:55 14:40 Hospitalization Ordered by Leslie Gutierrez MD for Observation. Preliminary dw diagnosis is Diarrhea, unspecified; Chronic obstructive pulmonary disease, unspecified; Type 2 diabetes mellitus. Bed requested for Telemetry/MedSurg (observation). Status is Observation. Condition is Fair. Problem is new. Symptoms have improved. UTI on Admission? No. dannie 17:18 15:55 04/03/2018 14:40 Hospitalization Ordered by Leslie Gutierrez MD for Observation. aj1 Preliminary diagnosis is Diarrhea, unspecified; Chronic obstructive pulmonary disease, unspecified; Type 2 diabetes mellitus. Bed requested for Telemetry/MedSurg (observation). Status is Observation. Condition is Fair. Problem is new. Symptoms have improved. UTI on Admission? No. dw
--- NOTE | 2018-04-03 14:41 | ER ---
Nurse's Notes [facility] Name: Los Griggs Jr Age: 52 yrs Sex: Male : 1965 Arrival Date: 04/03/2018 Time: 13:23 Bed 23 Private MD: Diagnosis: Diarrhea, unspecified;Chronic obstructive pulmonary disease, unspecified;Type 2 diabetes mellitus Presentation: 04/03 13:24 Presenting complaint: Patient states: anterior chest pain/cramping x 1 day with left sv arm radiation that started 10 mins. c/o SOB. Transition of care: patient was not received from another setting of care. Onset of symptoms was April 01, 2018. 13:24 Method Of Arrival: Wheelchair sv 13:24 Acuity: JAIMEE 3 sv 15:41 Risk Assessment: Do you want to hurt yourself or someone else? Patient reports no aj1 desire to harm self or others. Initial Sepsis Screen: Does the patient meet any 2 criteria? No. Patient's initial sepsis screen is negative. Does the patient have a suspected source of infection? No. Patient's initial sepsis screen is negative. Care prior to arrival: None. Historical: - Allergies: 13:27 No Known Allergies; sv - Home Meds: 16:45 aspirin 81 mg Oral TbEC 1 tab once daily [Active]; Tresiba FlexTouch U-100 subcutaneous aj1 subcutaneous [Active]; Anoro Ellipta 62.5-25 mcg/actuation inhalation dsdv 1 puff once daily [Active]; prasugrel oral 10 mg oral twice daily [Active]; azithromycin 500 mg Oral tab 1 tab twice daily [Active]; rifampin 300 mg Oral cap 1 caps 2 times per day [Active]; ethambutol 400 mg oral tab three times daily [Active]; atorvastatin 40 mg oral tab 1 tab once daily [Active]; gabapentin 100 mg oral cap 1 caps 3 times per day [Active]; metoprolol tartrate 25 mg Oral tab 1 tab 2 times per day [Active]; - PMHx: 13:27 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 - Family history:: not pertinent. - Ebola Screening: : Patient denies travel to an Ebola-affected area in the 21 days before illness onset. - Social history:: Smoking status: Patient/guardian denies using tobacco. Screenin:45 Abuse screen: Denies threats or abuse. Denies injuries from another. Nutritional aj1 screening: No deficits noted. Tuberculosis screening: No symptoms or risk factors identified. 16:39 Fall Risk None identified. aj1 Assessment: 13:45 General: Appears in no apparent distress. comfortable. Pain: Complains of pain in aj1 anterior aspect of left upper chest and diaphragm Pain radiates to anterior aspect of right shoulder and left arm Pain currently is 3 out of 10 on a pain scale. at worst was 8 out of 10 on a pain scale. Quality of pain is described as crampy, Pain began 1 day ago. Is intermittent. Neuro: Level of Consciousness is awake, alert, obeys commands, Oriented to person, place, time, situation. Cardiovascular: Reports chest pain, shortness of breath, Heart tones S1 S2 present Patient's skin is warm and dry. Rhythm is sinus rhythm Chest pain is described as Pain is 3 out of 10 on a pain scale. quality is crampy is located in left anterior chest wall radiates to right to left arm(s). Respiratory: Reports shortness of breath cough that is productive, Airway is patent Respiratory effort is even, unlabored, Respiratory pattern is regular, symmetrical, Breath sounds are clear bilaterally. GI: No signs and/or symptoms were reported involving the gastrointestinal system. : No signs and/or symptoms were reported regarding the genitourinary system. EENT: No signs and/or symptoms were reported regarding the EENT system. Derm: No signs and/or symptoms reported regarding the dermatologic system. Skin is pink, warm \T\ dry. normal. 14:30 Reassessment: Patient appears in no apparent distress at this time. No changes from aj1 previously documented assessment. Patient and/or family updated on plan of care and expected duration. Pain level reassessed. Patient is alert, oriented x 3, equal unlabored respirations, skin warm/dry/pink. 15:40 Reassessment: Patient and/or family updated on plan of care and expected duration. Pain aj1 level reassessed. General: Appears in no apparent distress. comfortable, Behavior is calm, cooperative, appropriate for age. Pain: Complains of pain in left arm and anterior aspect of right shoulder and diaphragm and anterior aspect of left upper chest Pain currently is 2 out of 10 on a pain scale. Neuro: Level of Consciousness is awake, alert, obeys commands. Cardiovascular: Patient's skin is warm and dry. Rhythm is sinus rhythm. Respiratory: Airway is patent Respiratory effort is even, unlabored, Respiratory pattern is regular, symmetrical. Derm: Skin is pink, warm \T\ dry. normal. 16:38 Reassessment: Patient appears in no apparent distress at this time. No changes from aj1 previously documented assessment. Patient and/or family updated on plan of care and expected duration. Pain level reassessed. Patient is alert, oriented x 3, equal unlabored respirations, skin warm/dry/pink. Vital Signs: 13:26 BP 147 / 76; Pulse 71; Resp 18; Temp 97.4; Pulse Ox 99% ; Weight 97.52 kg; Height 5 ft. sv 10 in. (177.80 cm); Pain 4/10; 14:30 BP 237 / 78; Pulse 66; Resp 18; Pulse Ox 95% on R/A; aj1 15:30 BP 141 / 70; Pulse 63; Resp 18; Pulse Ox 95% on R/A; aj1 16:38 BP 120 / 70; Pulse 57; Resp 18; Pulse Ox 95% on R/A; aj1 13:26 Body Mass Index 30.85 (97.52 kg, 177.80 cm) sv ED Course: 13:23 Patient arrived in ED. as 13:25 Triage completed. sv 13:26 Arm band placed on. sv 13:29 Bienvenido Rubio MD is Attending Physician. [facility] 13:30 electronic device monitor on. Pulse ox on. NIBP on. jp3 13:35 Initial lab(s) drawn, by tx, sent to lab. Inserted saline lock: 20 gauge in right sv antecubital area, using aseptic technique. Blood collected. Flushed right antecubital with 5 ml normal saline. 13:42 Loren Phillips, RN is Primary Nurse. aj1 13:45 No provider procedures requiring assistance completed. Patient maintains SpO2 aj1 saturation greater than 95% on room air. 13:57 Placed in gown. Bed in low position. Call light in reach. Side rails up X 1. jp3 13:57 EKG done, by ED staff, reviewed by Bienvenido Rubio MD. jp3 14:00 Initial lab(s) drawn, by tx, sent to lab. First set of blood cultures drawn via IV in jp3 Right A/C. 14:04 XRAY Chest (1 view) In Process Unspecified. EDMS 14:20 Second set of blood cultures drawn via 21-gauge Butterfly Needle in Left A/C. jp3 14:31 Procalcitonin Sent. jp3 14:31 Lactate Sent. jp3 14:31 Lipase Sent. jp3 14:31 Blood Culture Adult (2) Sent. jp3 14:32 Diet: Patient given ice chips. Patient given water. jp3 14:39 Leslie Gutierrez MD is Hospitalizing Provider. [facility] 14:49 CT Aorta for Dissection In Process Unspecified. EDMS 14:58 Urine collected: clean catch specimen, clear, curtis colored, Amount Voided: 100mL. jp3 14:58 Urine Culture Sent. jp3 14:58 Blood Culture Adult (2) Sent. jp3 15:[address] vr 15:01 CT completed. Patient tolerated procedure well. Patient moved back from CT. vr 15:21 Urine Dipstick--Ancillary (enter results) Sent. jp3 16:36 Patient admitted, IV remains in place. aj1 16:37 Report given to MAHAMED Bradley on 4th floor. aj1 Administered Medications: 15:08 Drug: Aspirin Chewable Tablet 162 mg Route: PO; kr2 15:08 Drug: Lopressor (metoprolol TARTRATE) 50 mg Route: PO; kr2 15:08 Drug: Pepcid 20 mg Route: IVP; Site: right antecubital; kr2 15:28 Drug: Lovenox 1 mg/kg Route: Sub-Q; Site: left lower abdomen; aj1 Outcome: 14:40 Decision to Hospitalize by Provider. dannie 17:17 Admitted to Tele accompanied by tech, via wheelchair, with chart. aj1 17:17 Condition: good 17:17 Discharge instructions given to patient, Instructed on the need for admit, Demonstrated understanding of instructions. 17:18 Patient left the ED. aj1 Signatures: Dispatcher [employer] Loren Marroquin RN RN aj1 Emely Ruiz RN RN sv Anderson, Corey, MD MD cha Martinez, Amelia as Davis, Victoria vr Reaves, Paz, RN RN kr2 Genaro Bass jp3 Corrections: (The following items were deleted from the chart) 13:27 13:26 Pulse Ox 99%; Temp 97.4F; 97.52 kg; Height 5 ft. 10 in.; BMI: 30.8; Pain 4/10; sv sv 13:28 13:26 Pulse 71bpm; Resp 18bpm; Pulse Ox 99%; Temp 97.4F; 97.52 kg; Height 5 ft. 10 in.; sv BMI: 30.8; Pain 4/10; sv
[2018-04-03] MEDS ORDERED: ASPIRIN 81 MG CHEWABLE TABLET ONE (14:55)
[2018-04-03] MEDS ORDERED: ENOXAPARIN 100 MG/ML SYR SQ ONE (14:56)
[2018-04-03] MEDS ORDERED: FAMOTIDINE 20 MG/2 ML VIAL IV ONE (14:56)
[2018-04-03] MEDS ORDERED: METOPROLOL TAR 50 MG TAB ONE (14:56)
--- NOTE | 2018-04-03 15:12 | RAD REPORT ---
EXAM DESCRIPTION: CT - Angio Aorta For Dissection - 04/03/2018 2:48 pm CLINICAL HISTORY: Chest pain radiating to the back. CHEST PAIN COMPARISON: Chest Single View dated 04/03/2018; Thorax Wo Con dated 09/20/2017 TECHNIQUE: CT angiography of the aorta was performed with MIPs. All CT scans are performed using dose optimization technique as appropriate and may include automated exposure control or mA/KV adjustment according to patient size. FINDINGS: A left aortic arch is present with normal branching pattern of the great vessels.Mild narr owing of the left proximal subclavian artery origin is seen.Atherosclerotic changes present in the in frarenal abdominal aorta. Moderate atherosclerotic plaquing is present at the origin of the renal art eries and visceral arteries. A small non flow-limiting dissection is suspected in the infrarenal abdo kuldip aorta (image [id number]). No aneurysm seen. No evidence of pulmonary embolism. Emphysematous changes are present throughout the lungs. Cavitary lesion in the left upper lobe with s urrounding poorly defined areas of nodularity seen. The cavitary lesion measures 4 cm in appears unch anged. Thick walled cavitary lesion in the left lower lobe is again noted, mildly increased in size s gladys prior study, currently measures 4 cm (previously 2.1 cm). Multiple nodules are present throughou t the left lower lobe, appearing mildly progressive. The liver demonstrates no focal mass or biliary dilatation.The spleen, pancreas, adrenal glands and k idneys are within normal limits for arterial phase imaging. No bowel obstruction, free fluid or abscess.No pathologic enlarged lymphadenopathy identified. No fracture or worrisome bone lesion seen. 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 Atherosclerotic changes present throughout the infrarenal abdominal aorta. COPD with cavitary lung disease predominately on the left noted, mildly progressive since the 018 prior study.
[2018-04-03 15:50] LABS: Urine Blood TRACE (NEG); Urine Glucose 2+ (NEG); Urine Protein NEGATIVE (NEG); Urine Specific Gravity 1.015 (1.005-1.030)
[2018-04-03] MEDS ORDERED: ACETAMINOPHEN 500 MG TAB PO PRN (16:13)
[2018-04-03] MEDS ORDERED: ONDANSETRON 4 MG/2 ML VIAL IV PRN (16:13)
--- NOTE | 2018-04-03 16:27 | P.HP ---
Certification for Inpatient Patient admitted to: Observation With expected LOS: <2 Midnights Patient will require the following post-hospital care: None Practitioner: I am a practitioner with admitting privileges, knowledge of patient current condition, hospital course, and medical plan of care. Services: Services provided to patient in accordance with Admission requirements found in Title 42 Section 412.3 of the Code of Federal Regulations Patient History Date of Service: 04/03/18 Primary Care Provider: Dr Moody Reason for admission: Chest pain History of Present Illness: This is a 52-year-old male with significant past medical history of congestive heart failure, COPD, diabetes, hypertension, who presented to the ED complaining of having some right shoulder pain that was going on since last Tuesday. Patient stated that he was doing well overall and started noticing some cramping pain in his right shoulder which resolved Tuesday night however this morning he started having some abdominal cramping pain that was in the epigastric area and was radiating up to his left chest. Patient stated that he also had associated nausea and was feeling out of breath as well. Patient denies having any fever chills constipation diarrhea or any other associated symptoms at this time. Patient stated that he had similar symptoms 10 years ago which had carotid artery stenosis and had to get it fixed at that time. Patient is a the current everyday is smoker and smokes 1 to 2 cigarettes a day however states that he has quit since last week. In the ER patient had extensive workup done which was negative for any acute cardiac abnormality. Patient however was admitted to the hospital for cardiac angina and abdominal cramping Allergies No Known Drug Allergies Allergy (Verified 02/28/17 13:00) Unknown No Known Allergies Allergy (Uncoded 05/09/17 20:12) Unknown Home Medications: Insulin 70/30 NPH/Reg Human [Novolin 70/30*] 20 units SQ BIDWM 07/09/15 Fluticasone [Flovent Hfa 110*] 1 puff IH DAILY 04/17/16 Metoprolol Tartrate [Lopressor*] 25 mg PO DAILY 04/17/16 Aspirin 81 mg PO DAILY #30 tab.chew 04/19/16 Furosemide [Lasix] 40 mg PO DAILY #30 tab 04/19/16 Insulin 70/30 NPH/Reg Human [Novolin 70/30*] 20 unit SQ BIDAC #2 vial 04/19/16 Metoprolol Succinate [Toprol Xl*] 25 mg PO BID #60 tab 04/19/16 Spironolactone [Aldactone*] 25 mg PO DAILY #30 tab 04/19/16 Temazepam [Restoril*] 15 mg PO BEDTIME PRN PRN #20 cap 04/19/16 - Past Medical/Surgical History Diabetic: Yes -: diabetes Type 2 -: COPD -: Mycobacterium Avium -: CHF -: pneumonia -: HTN -: chest pain august 2014 -: left corotid endarterectomy - Social History Alcohol use: No CD- Drugs: No Caffeine use: Yes Review of Systems 10-point ROS is otherwise unremarkable Physical Examination - Physical Exam General: Alert, In no apparent distress HEENT: Atraumatic, PERRLA, Mucous membr. moist/pink, EOMI, Sclerae nonicteric Neck: Supple, 2+ carotid pulse no bruit, No LAD, Without JVD or thyroid abnormality Respiratory: Clear to auscultation bilaterally, Normal air movement Cardiovascular: Regular rate/rhythm, Normal S1 S2 Gastrointestinal: Normal bowel sounds, No tenderness Musculoskeletal: No tenderness Integumentary: No rashes Neurological: Normal gait, Normal speech, Normal strength at 5/5 x4 extr, Normal tone, Normal affect Lymphatics: No axilla or inguinal lymphadenopathy - Studies Laboratory Data (last 24 hrs) 04/03/18 13:35: PT 11.5, INR 0.97 04/03/18 13:35: WBC 7.1, Hgb 13.8, Hct 41.2, Plt Count 230 04/03/18 13:35: Sodium 135 L, Potassium 4.6, BUN 21 H, Creatinine 1.20, Glucose 256 H, Magnesium 2.1, Total Bilirubin 0.4, AST 15, ALT 23, Alkaline Phosphatase 74 Assessment and Plan - Problems (Diagnosis) (1) Abdominal cramping Current Visit: Yes Status: Acute Plan: Epigastric abdominal cramping radiating to the left shoulder. -Gallbladder etiology cannot be ruled out. -Will get an abdominal ultrasound at this time. (2) Cardiac angina Onset Date: 04/19/16 Current Visit: No Status: Acute Plan: Atypical chest pain at this time. -Patient has more of an abdominal cramping then chest pain. -Will go ahead and get an abdominal ultrasound done to rule out any gallbladder disease at this time. -troponin x1 is negative in the ER EKG was negative for any acute abnormality either -will get cardiology consultation. -restart home medication at this time (3) CHF (congestive heart failure) Onset Date: 04/28/15 Current Visit: No Status: Chronic Plan: CHF with ejection fraction of 39% with dilated left atrium echocardiogram in October of 2016 -currently stable will continue all home medications at this time Qualifiers: Heart failure chronicity: chronic (4) COPD (chronic obstructive pulmonary disease) Current Visit: No Status: Chronic Plan: COPD -PRN Ankit for now Qualifiers: COPD type: chronic bronchitis Chronic bronchitis type: mucopurulent Qualified Code(s): J41.1 - Mucopurulent chronic bronchitis (5) Diabetes mellitus, type II Onset Date: 04/19/16 Current Visit: No Status: Chronic 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
[2018-04-03] MEDS: INSULIN -REGULAR HUMAN 50 UNIT/0.5 ML ML SQ SCH ×2 (16:30→21:31)
[2018-04-03] MEDS ORDERED: IPRATROPIUM BROM 0.5MG/2.5ML NEB PRN (16:32)
[2018-04-03] MEDS ORDERED: ALBUTEROL 2.5 MG/3 ML NEB SOL NEB PRN (16:32)
[2018-04-03] MEDS: ENOXAPARIN 40 MG/0.4 ML SQ SCH (17:00)
--- NOTE | 2018-04-03 17:36 | RAD REPORT ---
EXAM DESCRIPTION: US - Abdomen Exam Complete - 04/03/2018 5:12 pm CLINICAL HISTORY: Epigastric pain, right upper quadrant pain COMPARISON: CT dissection April 03. FINDINGS: Gallbladder size is normal. No gallstones are identified. A 5-6 millimeter polyp is identi fied. No wall thickening or pericholecystic fluid. Common bile duct is normal with no common duct sto ne identified. The liver and spleen show no suspicious findings. The pancreas is too obscured by bow el for assessment. Pancreas was negative on the CT study of the same date. No hydronephrosis or suspicious mass in either kidney. Cortical thickness and echogenicity within nor mal range. Aorta is normal is size. No ascites or bulky lymphadenopathy. No IVC abnormality. IMPRESSION: Small 6 mm gallbladder polyp with no acute gallbladder or biliary tree finding. Pancreas was obscured by bowel but negative on the CT of same date.
[2018-04-03 18:39] LABS: Absolute Lymphocytes (CBC) 2.3 K/uL (0.7-4.9); Absolute Monocytes 0.5 K/uL (0.1-1.3); Absolute Neutrophil 3.7 K/uL (1.8-8.0); Basophils % 0.9 % (0-1.3); Eosinophils % 2.5 % (0-4.4); Hematocrit 40.3 % (39.6-49.0); Lymphocytes % 33.8 % (15.3-44.8); MCH 29.5 pg (27.0-35.0); MCV 88.7 fL (80-100); MPV 9.5 fL (7.6-11.3); Monocytes % 7.8 % (3.3-12.3); RBC Red Blood Cell Count 4.55 M/uL (4.33-5.43)
[2018-04-03 18:41] LABS: Protime INR 1.03
[2018-04-03] MEDS ORDERED: INFLUENZA VACCINE (for 3y+) 0.5 ML DOSE IMVAC ONE (19:00)
[2018-04-03] MEDS ORDERED: HYDROCODONE/APAP 10/325 TAB PO PRN (20:21)
[2018-04-03] MEDS ORDERED: ATORVASTATIN 40 MG TAB PO SCH (21:00)
[2018-04-03] MEDS: GABAPENTIN 100 MG CAP PO SCH (21:00)
[2018-04-04 05:45] LABS: Absolute Lymphocytes (CBC) 1.6 K/uL (0.7-4.9); Absolute Monocytes 0.4 K/uL (0.1-1.3); Absolute Neutrophil 4.2 K/uL (1.8-8.0); Basophils % 0.6 % (0-1.3); Eosinophils % 2.2 % (0-4.4); Hematocrit 41.3 % (39.6-49.0); Lymphocytes % 25.4 % (15.3-44.8); MCH 29.5 pg (27.0-35.0); MCV 88.4 fL (80-100); MPV 9.8 fL (7.6-11.3); Monocytes % 6.8 % (3.3-12.3); RBC Red Blood Cell Count 4.67 M/uL (4.33-5.43)
[2018-04-04] MEDS: INSULIN -REGULAR HUMAN 50 UNIT/0.5 ML ML SQ SCH ×2 (07:30→12:09)
[2018-04-04] MEDS ORDERED: PANTOPRAZOLE 40MG TABLET PO SCH (07:30)
[2018-04-04] MEDS: GABAPENTIN 100 MG CAP PO SCH (08:31)
[2018-04-04] MEDS: ENOXAPARIN 40 MG/0.4 ML SQ SCH (08:31)
[2018-04-04 08:32] LABS: Albumin 3.1 g/dL (3.4-5.0); Bilirubin Total 0.2 mg/dL (0.2-1.0); Potassium 4.4 mmol/L (3.5-5.1); Protein, Total 7.2 g/dL (6.4-8.2)
[2018-04-04] MEDS ORDERED: PRASUGREL (EFFIENT) 10 MG TAB PO SCH (09:00)
[2018-04-04] MEDS ORDERED: METOPROLOL TAR 25 MG TAB PO SCH (09:00)
[2018-04-04] MEDS ORDERED: INSULIN DEGLUDEC 60 UNIT SQ SCH (09:00)
[2018-04-04] MEDS ORDERED: ETHAMBUTOL HCL 400 MG TAB PO SCH (09:00)
[2018-04-04] MEDS ORDERED: ASPIRIN 81 MG CHEWABLE TABLET PO SCH (09:00)
[2018-04-04] MEDS ORDERED: AZITHROMYCIN 250 MG TAB PO SCH (09:00)
--- NOTE | 2018-04-04 12:37 | EKG ---
Test Date: 2018-04-03 Test Time: 13:53:47 Transplant Worker: ADRIÁN MEASUREMENT RESULTS: Intervals: Rate: 67 HI: 162 QRSD: 104 QT: 438 QTc: 462 Cheney: P: 53 HI: 162 QRS: 3 T: 72 INTERPRETIVE STATEMENTS: Normal sinus rhythm Possible Inferior infarct, age undetermined Abnormal ECG Compared to ECG 09/20/2017 09:35:37 Myocardial infarct finding now present Left ventricular hypertrophy no longer present Prolonged QT interval no longer present Electronically Signed On 04-04-18 12:33:22 CDT by Parvez Coe
[2018-04-04 14:52] VITALS: BP 126/68; TEMP 97.7; O2SAT 96; BMI 29.6
--- NOTE | 2018-04-05 04:58 | DS ---
Date of Discharge: 04/04/2018 Consultants: Dr. Coe, Cardiology. Discharge Diagnoses: 1.Abdominal cramping. 2.Cardiac angina and chest pain, rule out acute coronary syndrome. 3.Congestive heart failure, chronic, systolic. 4.Chronic obstructive pulmonary disease, chronic bronchitis. 5.Diabetes mellitus type 2 without long-term use of insulin without complications. 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 7.Essential hypertension, stable. Hospital Course: The patient is a 52-year-old male, history of CHF, COPD, diabetes, hypertension, My cobacterium avium complex on multiple inhalers. Sees Pulmonology as an outpatient. Complained of ch est pain. Also having some abdominal cramping and muscle cramps in the upper chest radiating to the left side. The patient was admitted to the hospital for chest pain, rule out ACS. Cardiac enzymes w ere negative x3. He was seen by Cardiology and no further workup was recommended. The patient was n onseptic appearing. Procalcitonin was negative. His electrolytes were within normal limits. Imagin g studies including CT angio aorta for dissection did show infrarenal abdominal aorta, [id number] ing short-segment dissection having a chronic appearance, otherwise, having atherosclerotic changes p resent throughout the infrarenal abdominal aorta, also seen to have COPD with cavitary lung disease c onsistent with his Mycobacterium avium complex, which is mildly progressive since the September 2017 stud y. His EKG showed normal sinus rhythm. Chest x-ray shows some emphysematous changes throughout lung s, left upper lobe cavity and left lung base, ill-defined opacities similar to previous. He had an a bdominal ultrasound to rule out gallbladder pathology and he was found to have a gallbladder polyp, b ut otherwise no biliary tree dilatation or thickness of the gallbladder wall with no dilatation of th e common bile duct. The patient's symptoms resolved. He was feeling significantly better. He felt that his muscle spasms may be coming from his Anoro Ellipta inhaler. Otherwise, his urine culture an d blood culture did not show any growth to date. The patient was then cleared for discharge from Car diology standpoint. Symptoms had resolved. The patient was then sent home in a stable condition. Activity: As tolerated. Medications: As per medication reconciliation list. Diet: Low-sodium, fluid-restricted diet. Followup: With primary care physician in 2 to 3 days. Follow up with hair baler, Dr. Coe in 2 weeks. Follow up with pneumatic system conveyor operator, Dr. Kidd in 2 weeks. Return to ER for worsening condition . Complete smoking cessation encouraged. The patient has not smoked for the past week in the proces s of quitting completely. Physical Examination: General: Awake, alert, oriented x3. No acute distress. CV: S1, S2. No murmurs. Respiratory: Moving air well bilaterally. No wheezing. Abdomen: Soft, nontender, nondistended. Positive bowel sounds. Extremities: No clubbing, cyanosis, or edema. Neuro: Nonfocal. SA/MODL Voice ID: [id number] Report ID: [id number]
--- NOTE | 2018-04-05 10:41 | CON ---
Date of Consultation: 04/04/2018 Reason For Consultation: Chest pain. History Of Present Illness: Mr. Griggs is a 52-year-old white male. He is a patient of Dr. Ruiz Ortega, my partner. Had a coronary artery bypass surgery in October [address] Jame Hurley. He has a his tory of hypertension, diabetes, COPD. He is status post aortobifemoral bypass surgery. He is status post right carotid stent and left carotid endarterectomy. Has some peripheral vascular disease as w ell distally. Came in with what he describes as cramps in the legs and the chest. Sharp, stabbing. No nausea, vomiting, diaphoresis, PND, orthopnea, pedal edema, palpitations, or syncope. His EKG sh owed normal sinus rhythm with PVCs. His troponin was negative. His BNP was 836. His glucose was 27 1. Chest x-ray showed COPD. Past Medical History: As stated above. Allergies: HAS NO ALLERGIES. Review of Systems: Negative. Social History: Negative. Family History: Positive for heart disease. Medications: At home include aspirin, Lipitor, Neurontin, insulin, metoprolol, Effient, and inhalers . He is also on Myambutol, erythromycin, and rifampin for atypical mycobacterium. Physical Examination: Vital Signs: Stable. He was afebrile. HEENT: Negative. Neck: Supple without any bruit, lymphadenopathy, JVD, or thyromegaly. Chest: Clear to auscultation and percussion. Cardiac: Revealed a regular rhythm and rate without any murmurs, gallops, or rubs. Abdomen: Benign. Extremities: Revealed no clubbing, cyanosis, or edema. Diagnostic Data: As stated earlier. Impression And Plan: 1.Atypical chest pain in someone who has had recent surgery. No evidence of myocardial necrosis on EKG or blood work. I do not recommend another stress test. I think an echocardiogram is reasonable to do since he has not had 1 since his surgery. Mr. Griggs claims his symptoms on his new inhaler. He seems to have cramps in his legs and chest every time he takes it. He was going to discuss that with his facilities maintenance worker. 2.Atypical mycobacterium, on triple antibiotic therapy. 3.Premature ventricular contractions. 4.Diabetes, poorly controlled. 5.Chronic obstructive pulmonary disease. 6.Dyslipidemia. 7.Neuropathy. 8.Peripheral arterial disease, status post aortobifemoral surgery with distant disease in the SFA an d below the knees. 9.Status post right carotid stent, left carotid endarterectomy. 10.Chronic systolic congestive heart failure, ejection fraction of 39% in October of 2016 that is stable . We will see what his echo shows, but otherwise he can go home today with his home medication. He will discuss his inhalers with his facilities maintenance worker and we will see him in the office in the near future . VITOR/DONA Voice ID: [id number] Report ID: [id number]
== END 2018-04-04 14:43 | disposition home or self-care (01) ==
LOC: ER 13:22 → ERHOLD 14:41 → 4TH 16:55
PROVIDERS: ADMIT Family Medicine; ATTEND Family Medicine
DX: R10.9 Unspecified abdominal pain (principal); R07.89 Other chest pain; E11.9 Type 2 diabetes mellitus without complications; I11.0 Hypertensive heart disease with heart failure; I50.22 Chronic systolic (congestive) heart failure; A31.0 Pulmonary mycobacterial infection; J44.9 Chronic obstructive pulmonary disease, unspecified; Z23 Encounter for immunization
CPT/HCPCS: 36415; 71045; 71275; 74175; 76700; 80048; 80053; 80076; 81003; 82962 ×4; 83605; 83690; 83735; 83880; 84145; 84484 ×4; 85025 ×3; 85610 ×2; 87040 ×2; 87086; 87088; 93005; 96372; 96374; 99285; G0008; G0378 ×2; J1650 ×2; Q2035; Q9967

== ENCOUNTER 2018-04-18 10:40 | Observation (INO) | payer OTHER ==
--- OUTSIDE RECORDS SUMMARY | 2018-04-18 10:42 | XMS REPORT | Clinical Summary ---
:1965 Author Organization [facility] Address [address] [place] [address] Care Team Providers Name Role Phone Hiren Morales Unavailable Pcp, No Primary Care Provider Unavailable Allergies No Known Allergies Medications Medication Sig Dispensed Refills Start Date End Date Status ethambutol Take 1,200 mg by 0 Active (MYAMBUTOL) 400 mouth daily. MG tablet albuterol HFA Inhale 2 puffs by 0 Active (VENTOLIN HFA) 90 mouth via inhaler mcg/actuation every 6 (six) hours inhaler as needed for Wheezing. rifAMPin Take 600 mg by 0 Active (RIFADIN) 300 MG mouth daily. capsule pen needle, To use 6 a day. 600 each 3 11/07/2016 Active diabetic 31 gauge x 5/16" Ndle azithromycin Take 500 mg by 0 Active (ZITHROMAX) 500 mouth daily. MG tablet insulin regular Inject 25 Units 0 Active (HUMULIN subcutaneously 2 R,NOVOLIN R) 100 (two) times daily unit/mL injection Sliding scale . prasugrel Take 10 mg by mouth 0 Active (EFFIENT) 10 mg daily Took 20 mg Tab tablet this am as instructed . aspirin 81 MG EC Take 81 mg by mouth 0 Active tablet daily. fLUoxetine Take 20 mg by mouth 0 12/07/19 Discontinued (PROZAC) 20 MG daily. 18 capsule furosemide Take 40 mg by mouth 0 12/07/19 Discontinued (LASIX) 40 MG daily. 18 [...] Carotid artery stenosis 12/06/2017 Mycobacterium avium complex 12/03/2017 Bilateral carotid artery disease 12/03/2017 S/P CABG x 3 12/03/2017 Coronary artery disease involving [place] coronary artery of [place] heart 10/27 without angina pectoris Systolic congestive heart failure 10/27/2016 S/P coronary artery stent placement 10/27/2016 Cardiomyopathy 10/27/2016 Essential hypertension 10/27/2016 Insulin dependent diabetes mellitus 10/27/2016 COPD (chronic obstructive pulmonary disease) 10/27/2016 Current every day smoker 10/27/2016 Encounters Date Type Specialty Care Team Description 12/06/2017 Surgery Keon Jean STENT / CAROTID [facility] - MD Edilberto IP PROC ONLY 12/06/2017 - Hospital Encounter Cardiology Keon Jean 12/07/2017 MD Edilberto 12/01/2017 Hospital Encounter Radiology Keon Jean Right cavernous carotid MD Edilbreto stenosis 11/30/2017 Outside Orders Radiology Keon Jean Right cavernous carotid MD Edilberto stenosis (Primary Dx) after 04/17/2017 Social History Tobacco Use Types Packs/Day Years Used Date Former Smoker 30 Smokeless Tobacco: Former User Comments: quit 2017 Alcohol Use Drinks/Week oz/Week Comments No Sex Assigned at Date Recorded Not on file Job Start Date Occupation Industry Not on file Not on file Not on file Travel History Travel Start Travel End No recent travel history available. Last Filed Vital Signs Vital Sign Reading [...] 03/20/2018 Procedures Procedure Name Priority Date/Time Associated Comments Diagnosis VASCULAR DIAGRAM 03/09/2018 11:11 -SCAN AM CDT CARDIAC CATH REPORT 12/09/2017 10:10 - SCAN AM CDT VASCULAR DIAGRAM 12/08/2017 9:50 -SCAN AM CDT RHYTHM STRIP - SCAN 12/08/2017 9:50 AM CDT POCT-GLUCOSE METER Routine 12/07/2017 9:11 Results for this AM CDT procedure are in the results section. PLATELET AP Routine 12/07/2017 3:28 Results for this AGGREGATION: AM CDT procedure are in FUNCTION SCREEN the results section. BASIC METABOLIC Routine 12/07/2017 3:28 Results for this PANEL (7) AM CDT procedure are in the results section. CBC (HEMOGRAM ONLY) Routine 12/07/2017 3:28 Results for this AM CDT procedure are in the results section. POCT-GLUCOSE METER Routine 12/06/2017 10:36 Results for this PM CDT procedure are in the results section. POCT-GLUCOSE METER Routine 12/06/2017 5:16 Results for this PM CDT procedure are in the results section. POCT-ACT Routine 12/06/2017 3:35 Results for this PM CDT procedure are in the results section. POCT-ACT Routine 12/06/2017 1:44 Results for this PM CDT procedure are in the results section. STENT / CAROTID 12/06/2017 10:07 Stenosis of right MCR - IP PROC AM CDT carotid artery ONLY Case Notes POP6 POCT-ACT Routine 12/06/2017 9:44 AM Results for this CDT procedure are in the results section. POCT-GLUCOSE METER Routine 12/06/2017 7:40 AM Results for this CDT procedure are in the results section. MR MRA NECK WITH Routine 12/01/2017 11:34 AM Right cavernous Results for this AND WITHOUT CDT carotid stenosis procedure are in CONTRAST the results section. MR MRA HEAD WITH Routine 12/01/2017 11:34 AM Right cavernous Results for this AND WITHOUT CDT carotid stenosis procedure are in CONTRAST the results section. POCT-CREATININE Routine 12/01/2017 10:44 AM Results for this CDT procedure are in the results section. after 04/17/2017 Results VASCULAR DIAGRAM -SCAN (03/09/2018 11:11 AM CDT)Only the most recent of2 resultswithin the time period is included. Narrative Performed At CARDIAC CATH REPORT - SCAN (12/09/2017 10:10 AM CDT) Narrative Performed At RHYTHM STRIP - SCAN (12/08/2017 9:50 AM CDT) Narrative Performed At POC-Glucose meter (12/07/2017 9:11 AM CDT)Only the most recent of4 resultswithin the time period is included. POC-Glucose Meter 368 (H)Comment: TESTED AT 70 - 110 mg/dL [facility] [address] [facility] [id number] Specimen Blood Performing Organization Address City/State/Zipcode Phone Number [address] [address] CENTER Platelet Aggregation: Function Screen (12/07/2017 3:28 AM CDT) Weak ADP 7 (L) 60 - 91 % [facility] Plt. Function Screen 0-39% indicates marked [facility] Interpretation platelet dysfunction [facility] Pathologist: Jannette Bryant MD [facility] (electronic signature) [facility] Platelets 198 150 - 450 K/CU [facility] Specimen Blood - Arm, Right Performing Organization Address City/[facility] Cent[facility] Phone Number [facility] [address] [place] [phone] [place] CBC (Hemogram only) (12/07/2017 3:28 AM CDT) WBC 7.2 3.5 - 10.5 K/L [facility] RBC 4.27 (L) 4.63 - 6.08 M/L [facility] Hemoglobin 12.3 (L) 13.7 - 17.5 GM/DL [facility] Hematocrit 38.3 (L) 40.1 - 51.0 % [facility] MCV 89.7 79.0 - 92.2 fL [facility] MCH 28.8 25.7 - 32.2 pg [facility] MCHC 32.1 (L) 32.3 - 36.5 GM/DL [facility] RDW 14.6 (H) 11.6 - 14.4 % [facility] Platelets 194 150 - 450 K/CU [facility] MPV 11.4 9.4 - 12.4 fL [facility] nRBC 0 0 - 0 /100 WBC [facility] Specimen Blood - Arm, Right Performing Organization Address City/State/Zipcode Phone Number [facility] [address] [place] [phone] [place] Basic Metabolic Panel (12/07/2017 3:28 AM CDT) Sodium 136 136 - 145 meq/L [facility] Potassium 4.2 3.5 - 5.1 meq/L [facility] Chloride 104 98 - 107 meq/L [facility] CO2 26 22 - 29 meq/L [facility] BUN 17 7 - 21 mg/dL [facility] Creatinine 0.99 0.57 - 1.25 mg/dL [facility] Glucose 320 (H) 70 - 105 mg/dL [facility] Calcium 8.9 8.4 - 10.2 mg/dL [facility] EGFR 79Comment: ESTIMATED GFR IS mL/min/1.73 sq m [facility] NOT ACCURATE CREATININE [facility] CENTER CLEARANCE IN PREDICTING GLOMERULAR FILTRATION RATE. ESTIMATED GFR IS NOT APPLICABLE FOR DIALYSIS PATIENTS. Specimen Blood - Arm, Right Performing Organization Address [facility] Center[facility] Phone Number [address] [address] CENTER POC ACTIVATED CLOTTING TIME (12/06/2017 3:35 PM CDT)Only the most recent of3 resultswithin the time period is included. Activated Clotting Time 131Comment: TESTED AT sec [address] [address] Specimen Blood Performing Organization Address [facility] Phone Number [address] [address] [place] MRA neck without & with IV contrast (12/01/2017 11:34 AM CDT) Narrative Performed At FINAL REPORT [facility] MRA head, arch, great vessels, and neck CLINICAL HISTORY: RIGHT CAROTID STENOSIS TECHNIQUE:2-D and 3-D [id number] and postcontrast MRA of the head, arch, great vessels, and neck was provided with maximal intensity projection 3-D reconstructions of the arterial vasculature. COMPARISON: None FINDINGS: There is no evidence for a [place] proximal branch vessel occlusion. There [...] cervical vertebral artery. No evidence for a [place] proximal branch vessel occlusion. Signed: Mya Mendoza MD Report Verified Date/Time:12/01/2017 13:28:07 Reading Location: [facility] [id number] Consult Reading Room Procedure Note Interface, External Ris In - 12/01/2017 1:30 PM CDT FINAL REPORT MRA head, arch, great vessels, and neck CLINICAL HISTORY: RIGHT CAROTID STENOSIS TECHNIQUE: 2-D and 3-D [id number] and postcontrast MRA of the head, arch, great vessels, and neck was provided with maximal intensity projection 3-D reconstructions of the arterial vasculature. COMPARISON: None FINDINGS: There is no evidence for a [place] proximal branch vessel occlusion. There [...] cervical vertebral artery. No evidence for a [place] proximal branch vessel occlusion. Signed: Mya Mendoza MD Report Verified Date/Time: 12/01/2017 13:28:07 Reading Location: [facility] [id number] Consult Reading Room Performing Organization Address City/State/Zipcode Phone Number [employer] MRA head with and without contrast (12/01/2017 11:34 AM CDT) Narrative Performed At FINAL REPORT [facility] MRA head, arch, great vessels, and neck CLINICAL HISTORY: RIGHT CAROTID STENOSIS TECHNIQUE:2-D and 3-D qsmr-so-brzjll and postcontrast MRA of the head, arch, great vessels, and neck was provided with maximal intensity projection 3-D reconstructions of the arterial vasculature. COMPARISON: None FINDINGS: There is no evidence for a [place] proximal branch vessel occlusion. There [...] cervical vertebral artery. No evidence for a [place] proximal branch vessel occlusion. Signed: Mya Mendoza MD Report Verified Date/Time:12/01/2017 13:28:07 Reading Location: [address] Consult Reading Room Procedure Note Interface, External Ris In - 12/01/2017 1:30 PM CDT FINAL REPORT MRA head, arch, great vessels, and neck CLINICAL HISTORY: RIGHT CAROTID STENOSIS TECHNIQUE: 2-D and 3-D yzjk-bo-vunofo and postcontrast MRA of the head, arch, great vessels, and neck was provided with maximal intensity projection 3-D reconstructions of the arterial vasculature. COMPARISON: None FINDINGS: There is no evidence for a [place] proximal branch vessel occlusion. There [...] cervical vertebral artery. No evidence for a [place] proximal branch vessel occlusion. Signed: Mya Mendoza MD Report Verified Date/Time: 12/01/2017 13:28:07 Reading Location: [facility] B1 [id number] Consult Reading Room Performing Organization Address City/State/Zipcode Phone Number [facility] POC-Creatinine (12/01/2017 10:44 AM CDT) POC-Creatinine 0.9Comment: TESTED AT 0.6 - 1.3 mg/dL [facility] [id number] [facility] [address] POC-EGFR 88 mL/min/1.73M2 [facility] Specimen Blood Performing Organization Address City/[facility] Centercode Phone Number [address] [address] CENTER after 04/17/2017 Insurance Payer Benefit Plan / Group Subscriber ID Type Phone Address MEDICARE MEDICARE A B xxxxxxxxxx Medicare Advance Directives For more information, please contact:[address] [phone] Code Status Date Activated Date Inactivated Comments Full Code 12/06/2017 6:39 AM 12/07/2017 1:30 PM This code status was determined by: Patient Full Code 11/01/2016 6:01 AM 11/08/2016 4:15 PM This code status was determined by: Patient
--- OUTSIDE RECORDS SUMMARY | 2018-04-18 10:43 | XMS REPORT ---
:1965 [facility] Address [address] [place] [address] Care Team Providers Name Role Phone BEAUDENICE [...] WEAK ADP RESULT(BEAKER) (test 7 % 60-91 gaom=8747) PLATELET FUNCTION SCREEN INTERP 0-39% indicates marked platelet (BEAKER) (test louc=1384) dysfunction [id number] (BEAKER) (test Jannette Bryant MD (electronic dsjr=6899) signature) PLATELET COUNT AGG (BEAKER) (test 198 K/CU MM 150-450 lfzb=5820) POCT-GLUCOSE [id number] 09:13:00 Test Item Value Reference Range Comments POC-GLUCOSE METER (BEAKER) 368 mg/dL 70-110 TESTED AT [address] (test mght=8376) [facility] [address] BASIC METABOLIC [id number] 04:10:00 Test Item Value Reference Range Comments SODIUM (BEAKER) (test 136 meq/L 136-145 kuvw=592) POTASSIUM (BEAKER) (test 4.2 meq/L 3.5-5.1 tvev=784) CHLORIDE (BEAKER) (test 104 meq/L 98-107 emkj=215) CO2 (BEAKER) (test 26 meq/L 22-29 irad=927) BLOOD UREA NITROGEN 17 mg/dL 7-21 (BEAKER) (test ssaj=418) CREATININE (BEAKER) (test 0.99 mg/dL 0.57-1.25 zhnf=492) GLUCOSE RANDOM (BEAKER) 320 mg/dL 70-105 (test ltyn=812) CALCIUM (BEAKER) (test 8.9 mg/dL 8.4-10.2 chxq=362) EGFR (BEAKER) (test 79 mL/min/1.73 sq m ESTIMATED GFR IS NOT rqby=8762) ACCURATE CREATININE CLEARANCE IN PREDICTING GLOMERULAR FILTRATION RATE. ESTIMATED GFR IS NOT APPLICABLE FOR DIALYSIS PATIENTS. CBC (HEMOGRAM ONLY)2017-12-07 03:49:00 Test Item Value Reference Range Comments WHITE BLOOD CELL COUNT (BEAKER) (test qmdd=819) 7.2 K/ L 3.5-10.5 RED BLOOD CELL COUNT (BEAKER) (test hgpr=785) 4.27 M/ L 4.63-6.08 HEMOGLOBIN (BEAKER) (test ccaq=432) 12.3 GM/DL 13.7-17.5 HEMATOCRIT (BEAKER) (test zlgf=682) 38.3 % 40.1-51.0 MEAN CORPUSCULAR VOLUME (BEAKER) (test bdld=362) 89.7 fL 79.0-92.2 MEAN CORPUSCULAR HEMOGLOBIN (BEAKER) (test 28.8 pg 25.7-32.2 cgdi=455) MEAN CORPUSCULAR HEMOGLOBIN CONC (BEAKER) (test 32.1 GM/DL 32.3-36.5 zixm=573) RED CELL DISTRIBUTION WIDTH (BEAKER) (test 14.6 % 11.6-14.4 xtgx=494) PLATELET COUNT (BEAKER) (test rnxi=142) 194 K/CU MM 150-450 MEAN PLATELET VOLUME (BEAKER) (test yytq=002) 11.4 fL 9.4-12.4 NUCLEATED RED BLOOD CELLS (BEAKER) (test 0 /100 WBC 0-0 sqxj=223) POCT-GLUCOSE [id number] 22:59:00 Test Item Value Reference Range Comments POC-GLUCOSE METER (BEAKER) 281 mg/dL 70-110 TESTED AT [address] (test clhx=8983) [facility] [address] POCT-GLUCOSE [id number] 17:19:00 Test Item Value Reference Range Comments POC-GLUCOSE METER (BEAKER) 398 mg/dL 70-110 TESTED AT [address] (test qemx=2174) [place] [address] [id number] 15:41:00 Test Item Value Reference Range Comments ACTIVATED CLOTTING TIME 131 sec TESTED AT [address] [facility] (test kbcq=010) [place] [address] [id number] 14:07:00 Test Item Value Reference Range Comments ACTIVATED CLOTTING TIME 142 sec TESTED AT [address] [facility] (test pzal=099) [place] [address] [id number] 09:52:00 Test Item Value Reference Range Comments ACTIVATED CLOTTING TIME 362 sec TESTED AT [address] [facility] (test xarf=650) [place] [address] POCT-GLUCOSE [id number] 07:42:00 Test Item Value Reference Range Comments POC-GLUCOSE METER ([facility]) 196 mg/dL 70-110 TESTED AT [address] (test uaut=9663) [place] [address] MR, MRA, BRAIN, [id number] 13:28:00FINAL REPORT MRA head, arch, great vessels, and neck CLINICAL HISTORY: RIGHT CAROTID STENOSIS TECHNIQUE: 2-D and 3-D olgp-qc-ivlrnf and postcontrast MRA of the head, arch, greatvessels, and neck was provided with maximal intensity projection 3-D reconstructions of the arterialvasculature. COMPARISON: None FINDINGS: There is no evidence for a [place] proximal branch vessel occlusion. There [...] cervical vertebral artery. No evidence for a [place] proximal branch vessel occlusion. Signed: Mya Mendoza MDReport Verified Date/Time: 2017 13:28:07 Reading Location: [facility] B1 C013W Consult Reading Room MR, MRA, NECK, [id number] 13:28:00FINAL REPORT MRA head, arch , great vessels, and neck CLINICAL HISTORY: RIGHT CAROTID STENOSIS TECHNIQUE: 2 -D and 3-D usal-zz-pqjsle and postcontrast MRA of the head, arch, greatvessels, and neck was provided with maximal intensity projection 3-D reconstructions of the arterialvasculature. COMPARISON: None FINDINGS: There is no evidence for a [place] proximal branch vessel occlusion. There [...] cervical vertebral artery. No evidence for a [place] proximal branch vessel occlusion. Signed: Mya Mendoza MDReport Verified Date/Time: 12/01/2017 13:28: 07 Reading Location: [facility] C013W Consult Reading Room [id number] 10:49:00 Test Item Value Reference Range Comments POC-CREATININE (BEAKER) 0.9 mg/dL 0.6-1.3 TESTED AT [facility]- 2457 (test gbjj=9237) [facility] [address] POC-EGFR (BEAKER) (test 88 mL/min/1.73M2 kqfc=1940) POCT-GLUCOSE [id number] 11:54:00 Test Item Value Reference Range Comments POC-GLUCOSE METER (BEAKER) 297 mg/dL 70-110 TESTED AT [facility] [address] [facility] (test kquh=2561) [facility] [address] POCT-GLUCOSE [id number] 08:49:00 Test Item Value Reference Range Comments POC-GLUCOSE METER (BEAKER) 250 mg/dL 70-110 TESTED AT [facility] [address] (test cbnx=0948) [place] [address] CBC (HEMOGRAM ONLY)2016-11-08 07:15:00 Test Item Value Reference Range Comments WHITE BLOOD CELL COUNT (BEAKER) (test iqbg=007) 7.3 K/ L 4.0-10.0 RED BLOOD CELL COUNT (BEAKER) (test ddzr=886) 2.67 M/ L 4.20-5.80 HEMOGLOBIN (BEAKER) (test rriw=147) 8.5 GM/DL 13.0-16.8 HEMATOCRIT (BEAKER) (test yvzd=130) 24.8 % 40.0-50.0 MEAN CORPUSCULAR VOLUME (BEAKER) (test lxpb=338) 92.9 fL 82.0-98.0 MEAN CORPUSCULAR HEMOGLOBIN (BEAKER) (test 31.6 pg 27.0-33.0 tabu=688) MEAN CORPUSCULAR HEMOGLOBIN CONC (BEAKER) (test 34.0 GM/DL 32.0-36.0 qqnq=304) RED CELL DISTRIBUTION WIDTH (BEAKER) (test 15.7 % 10.3-14.2 pojl=711) PLATELET COUNT (BEAKER) (test vbfa=505) 274 K/CU MM 150-430 MEAN PLATELET VOLUME (BEAKER) (test myrf=061) 7.3 fL 6.5-10.5 NUCLEATED RED BLOOD CELLS (BEAKER) (test 0 /100 WBC 0-0 fcui=438) [id number] 06:58:00 Test Item Value Reference Range Comments MAGNESIUM (BEAKER) (test mztp=354) 2.1 mg/dL 1.6-2.6 BASIC METABOLIC [id number] 06:58:00 Test Item Value Reference Range Comments SODIUM (BEAKER) (test 137 meq/L 136-145 ajvn=125) POTASSIUM (BEAKER) (test 4.2 meq/L 3.5-5.1 qtnc=204) CHLORIDE (BEAKER) (test 100 meq/L 98-107 bgbl=153) CO2 (BEAKER) (test 28 meq/L 22-29 tcae=303) BLOOD UREA NITROGEN 18 mg/dL 7-21 (BEAKER) (test xbcy=878) CREATININE (BEAKER) (test 0.83 mg/dL 0.57-1.25 ybzh=921) GLUCOSE RANDOM (BEAKER) 234 mg/dL 70-105 (test jwes=666) CALCIUM (BEAKER) (test 8.4 mg/dL 8.4-10.2 yspa=869) EGFR (BEAKER) (test 97 mL/min/1.73 sq m ESTIMATED GFR IS NOT dmdk=8546) ACCURATE CREATININE CLEARANCE IN PREDICTING GLOMERULAR FILTRATION RATE. ESTIMATED GFR IS NOT APPLICABLE FOR DIALYSIS PATIENTS. POCT-GLUCOSE [id number] 21:04:00 Test Item Value Reference Range Comments POC-GLUCOSE METER (BEAKER) 166 mg/dL 70-110 TESTED AT [address] (test njus=8004) [place] [address] POCT-GLUCOSE [id number] 17:37:00 Test Item Value Reference Range Comments POC-GLUCOSE METER (BEAKER) 153 mg/dL 70-110 TESTED AT [address] (test xkbp=6998) [place] [address] POCT-GLUCOSE [id number] 17:04:00 Test Item Value Reference Range Comments POC-GLUCOSE METER (BEAKER) 106 mg/dL 70-110 TESTED AT [address] (test cgry=2035) [place] [address] POCT-GLUCOSE [id number] 15:06:00 Test Item Value Reference Range Comments POC-GLUCOSE METER (BEAKER) 76 mg/dL 70-110 TESTED AT [address] (test szaq=9831) [place] [address] POCT-GLUCOSE [id number] 12:32:00 Test Item Value Reference Range Comments POC-GLUCOSE METER (BEAKER) 156 mg/dL 70-110 TESTED AT [address] (test gvtu=8964) [place] [address] POCT-GLUCOSE [id number] 08:10:00 Test Item Value Reference Range Comments POC-GLUCOSE METER (BEAKER) 153 mg/dL 70-110 TESTED AT [address] (test opdf=7166) [place] [address] URINALYSIS W/ [id number] 07:06:00 Test Item Value Reference Range Comments COLOR (BEAKER) (test wbgj=901) Light Yellow CLARITY (BEAKER) (test wjpe=363) Clear SPECIFIC GRAVITY UA (BEAKER) (test icvn=066) 1.005 1.001-1.035 PH UA (BEAKER) (test ovjk=755) 5.0 5.0-8.0 PROTEIN UA (BEAKER) (test wrrp=137) Negative Negative GLUCOSE UA (BEAKER) (test eyab=618) Negative Negative KETONES UA (BEAKER) (test dgvk=313) Negative Negative BILIRUBIN UA (BEAKER) (test tuce=590) Negative Negative BLOOD UA (BEAKER) (test nsgb=330) Negative Negative NITRITE UA (BEAKER) (test suit=030) Negative Negative LEUKOCYTE ESTERASE UA (BEAKER) (test rrpf=318) Small Negative UROBILINOGEN UA (BEAKER) (test ojrz=980) 0.2 mg/dL 0.2-1.0 RBC UA (BEAKER) (test sgqu=887) < /HPF WBC UA (BEAKER) (test vpse=293) 7 /HPF SQUAMOUS EPITHELIAL (BEAKER) (test gmqp=188) 2 /HPF SOURCE(BEAKER) (test xbhw=5501) [id number] 04:51:00 Test Item Value Reference Range Comments MAGNESIUM (BEAKER) (test sjlg=443) 1.9 mg/dL 1.6-2.6 BASIC METABOLIC [id number] 04:51:00 Test Item Value Reference Range Comments SODIUM (BEAKER) (test 140 meq/L 136-145 nmjk=608) POTASSIUM (BEAKER) (test 4.0 meq/L 3.5-5.1 mqkc=798) CHLORIDE (BEAKER) (test 102 meq/L 98-107 zcub=466) CO2 (BEAKER) (test 31 meq/L 22-29 iwlx=925) BLOOD UREA NITROGEN 16 mg/dL 7-21 (BEAKER) (test ntnm=002) CREATININE (BEAKER) (test 0.78 mg/dL 0.57-1.25 eero=707) GLUCOSE RANDOM (BEAKER) 136 mg/dL 70-105 (test fjhh=369) CALCIUM (BEAKER) (test 8.6 mg/dL 8.4-10.2 laye=260) EGFR (BEAKER) (test 105 mL/min/1.73 sq m ESTIMATED GFR IS NOT jjas=8929) ACCURATE CREATININE CLEARANCE IN PREDICTING GLOMERULAR FILTRATION RATE. ESTIMATED GFR IS NOT APPLICABLE FOR DIALYSIS PATIENTS. CBC (HEMOGRAM ONLY)2016-11-07 04:41:00 Test Item Value Reference Range Comments WHITE BLOOD CELL COUNT (BEAKER) (test elmg=095) 6.9 K/ L 4.0-10.0 RED BLOOD CELL COUNT (BEAKER) (test gbqi=545) 2.64 M/ L 4.20-5.80 HEMOGLOBIN (BEAKER) (test hvod=356) 8.3 GM/DL 13.0-16.8 HEMATOCRIT (BEAKER) (test cdwn=739) 24.5 % 40.0-50.0 MEAN CORPUSCULAR VOLUME (BEAKER) (test lmiu=097) 92.6 fL 82.0-98.0 MEAN CORPUSCULAR HEMOGLOBIN (BEAKER) (test 31.4 pg 27.0-33.0 xsia=755) MEAN CORPUSCULAR HEMOGLOBIN CONC (BEAKER) (test 33.9 GM/DL 32.0-36.0 tdqz=877) RED CELL DISTRIBUTION WIDTH (BEAKER) (test 14.5 % 10.3-14.2 dwqd=309) PLATELET COUNT (BEAKER) (test fynn=150) 236 K/CU MM 150-430 MEAN PLATELET VOLUME (BEAKER) (test sbcs=412) 7.3 fL 6.5-10.5 NUCLEATED RED BLOOD CELLS (BEAKER) (test 0 /100 WBC 0-0 ewqk=472) 0.00POCT-GLUCOSE [id number] 21:36:00 Test Item Value Reference Range Comments POC-GLUCOSE METER (BEAKER) 256 mg/dL 70-110 TESTED AT [address] (test vqyo=8423) [facility] [address] POCT-GLUCOSE [id number] 18:23:00 Test Item Value Reference Range Comments POC-GLUCOSE METER (BEAKER) 137 mg/dL 70-110 TESTED AT [address] (test uaxz=9295) [facility] [address] POCT-GLUCOSE [id number] 17:09:00 Test Item Value Reference Range Comments POC-GLUCOSE METER (BEAKER) 120 mg/dL 70-110 TESTED AT [address] (test vdnx=8881) [place] [address] POCT-GLUCOSE [id number] 12:21:00 Test Item Value Reference Range Comments POC-GLUCOSE METER (BEAKER) 129 mg/dL 70-110 TESTED AT [address] (test rgax=7866) [place] [address] CBC (HEMOGRAM ONLY)2016-11-06 08:00:00 Test Item Value Reference Range Comments WHITE BLOOD CELL COUNT (BEAKER) (test puny=597) 6.2 K/ L 4.0-10.0 RED BLOOD CELL COUNT (BEAKER) (test tfgo=943) 2.40 M/ L 4.20-5.80 HEMOGLOBIN (BEAKER) (test desp=818) 7.2 GM/DL 13.0-16.8 HEMATOCRIT (BEAKER) (test aqoa=318) 22.6 % 40.0-50.0 MEAN CORPUSCULAR VOLUME (BEAKER) (test ptoo=201) 94.3 fL 82.0-98.0 MEAN CORPUSCULAR HEMOGLOBIN (BEAKER) (test 30.0 pg 27.0-33.0 txuv=324) MEAN CORPUSCULAR HEMOGLOBIN CONC (BEAKER) (test 31.8 GM/DL 32.0-36.0 ayzx=056) RED CELL DISTRIBUTION WIDTH (BEAKER) (test 14.5 % 10.3-14.2 qqoh=970) PLATELET COUNT (BEAKER) (test cbps=987) 224 K/CU MM 150-430 MEAN PLATELET VOLUME (BEAKER) (test xcrg=512) 7.4 fL 6.5-10.5 NUCLEATED RED BLOOD CELLS (BEAKER) (test 0 /100 WBC 0-0 ivuj=195) 0.00POCT-GLUCOSE [id number] 07:49:00 Test Item Value Reference Range Comments POC-GLUCOSE METER (BEAKER) 241 mg/dL 70-110 TESTED AT [address] (test vmzc=1302) [place] [address] [id number] 06:49:00 Test Item Value Reference Range Comments MAGNESIUM (BEAKER) (test jeqb=518) 2.0 mg/dL 1.6-2.6 BASIC METABOLIC [id number] 06:49:00 Test Item Value Reference Range Comments SODIUM (BEAKER) (test 136 meq/L 136-145 blpe=685) POTASSIUM (BEAKER) (test 4.2 meq/L 3.5-5.1 juut=288) CHLORIDE (BEAKER) (test 102 meq/L 98-107 wtna=209) CO2 (BEAKER) (test 26 meq/L 22-29 nxkw=006) BLOOD UREA NITROGEN 15 mg/dL 7-21 (BEAKER) (test jihi=148) CREATININE (BEAKER) (test 0.76 mg/dL 0.57-1.25 whuk=367) GLUCOSE RANDOM (BEAKER) 221 mg/dL 70-105 (test trhh=586) CALCIUM (BEAKER) (test 8.4 mg/dL 8.4-10.2 qbka=723) EGFR (BEAKER) (test 108 mL/min/1.73 sq m ESTIMATED GFR IS NOT jkdw=5532) ACCURATE CREATININE CLEARANCE IN PREDICTING GLOMERULAR FILTRATION RATE. ESTIMATED GFR IS NOT APPLICABLE FOR DIALYSIS PATIENTS. POCT-GLUCOSE [id number] 16:44:00 Test Item Value Reference Range Comments POC-GLUCOSE METER (BEAKER) 144 mg/dL 70-110 TESTED AT [address] (test hfgp=7826) [place] [address] POCT-GLUCOSE [id number] 15:34:00 Test Item Value Reference Range Comments POC-GLUCOSE METER (BEAKER) 70 mg/dL 70-110 TESTED AT [address] (test nmeh=9828) [place] [address] POCT-GLUCOSE [id number] 15:00:00 Test Item Value Reference Range Comments POC-GLUCOSE METER (BEAKER) 49 mg/dL 70-110 TESTED AT [address] (test balc=4140) [place] [address] POCT-GLUCOSE [id number] 13:01:00 Test Item Value Reference Range Comments POC-GLUCOSE METER (BEAKER) 202 mg/dL 70-110 TESTED AT [address] (test fbah=8036) [place] [address] POCT-GLUCOSE [id number] 08:35:00 Test Item Value Reference Range Comments POC-GLUCOSE METER (BEAKER) 194 mg/dL 70-110 TESTED AT [address] (test mlcx=4226) [place] [address] [id number] 04:08:00 Test Item Value Reference Range Comments MAGNESIUM (BEAKER) (test lxqz=999) 1.9 mg/dL 1.6-2.6 BASIC METABOLIC [id number] 04:08:00 Test Item Value Reference Range Comments SODIUM (BEAKER) (test 137 meq/L 136-145 pgql=004) POTASSIUM (BEAKER) (test 3.4 meq/L 3.5-5.1 wrnq=202) CHLORIDE (BEAKER) (test 103 meq/L 98-107 nscm=254) CO2 (BEAKER) (test 26 meq/L 22-29 ueao=615) BLOOD UREA NITROGEN 19 mg/dL 7-21 (BEAKER) (test ccvd=000) CREATININE (BEAKER) (test 0.71 mg/dL 0.57-1.25 ibnp=120) GLUCOSE RANDOM (BEAKER) 75 mg/dL 70-105 (test ntpv=945) CALCIUM (BEAKER) (test 8.6 mg/dL 8.4-10.2 ampo=662) EGFR (BEAKER) (test 117 mL/min/1.73 sq m ESTIMATED GFR IS NOT gpxi=2601) ACCURATE CREATININE CLEARANCE IN PREDICTING GLOMERULAR FILTRATION RATE. ESTIMATED GFR IS NOT APPLICABLE FOR DIALYSIS PATIENTS. CBC W/PLT COUNT & AUTO [id number] 04:05:00 Test Item Value Reference Range Comments WHITE BLOOD CELL COUNT (BEAKER) (test nvws=614) 6.9 K/ L 4.0-10.0 RED BLOOD CELL COUNT (BEAKER) (test ccjr=866) 2.36 M/ L 4.20-5.80 HEMOGLOBIN (BEAKER) (test frsa=738) 7.8 GM/DL 13.0-16.8 HEMATOCRIT (BEAKER) (test xaix=776) 21.7 % 40.0-50.0 MEAN CORPUSCULAR VOLUME (BEAKER) (test gobv=023) 91.6 fL 82.0-98.0 MEAN CORPUSCULAR HEMOGLOBIN (BEAKER) (test 32.9 pg 27.0-33.0 vbbj=102) MEAN CORPUSCULAR HEMOGLOBIN CONC (BEAKER) (test 35.9 GM/DL 32.0-36.0 zyce=208) RED CELL DISTRIBUTION WIDTH (BEAKER) (test 14.7 % 10.3-14.2 nxnh=503) PLATELET COUNT (BEAKER) (test ckei=707) 192 K/CU MM 150-430 MEAN PLATELET VOLUME (BEAKER) (test qqdc=702) 7.4 fL 6.5-10.5 NUCLEATED RED BLOOD CELLS (BEAKER) (test 0 /100 WBC 0-0 svly=367) NEUTROPHILS RELATIVE PERCENT (BEAKER) (test 67 % uzay=920) LYMPHOCYTES RELATIVE PERCENT (BEAKER) (test 23 % ootx=089) MONOCYTES RELATIVE PERCENT (BEAKER) (test 7 % khro=895) EOSINOPHILS RELATIVE PERCENT (BEAKER) (test 4 % hfag=943) BASOPHILS RELATIVE PERCENT (BEAKER) (test 1 % tcxo=306) NEUTROPHILS ABSOLUTE COUNT (BEAKER) (test 4.61 K/ L 1.80-8.00 zymc=292) LYMPHOCYTES ABSOLUTE COUNT (BEAKER) (test 1.56 K/ L 1.48-4.50 svdc=695) MONOCYTES ABSOLUTE COUNT (BEAKER) (test 0.46 K/ L 0.00-1.30 auvw=697) EOSINOPHILS ABSOLUTE COUNT (BEAKER) (test 0.24 K/ L 0.00-0.50 pbes=826) BASOPHILS ABSOLUTE COUNT (BEAKER) (test 0.04 K/ L 0.00-0.20 wcoi=102) 0.00POCT-GLUCOSE [id number] 21:29:00 Test Item Value Reference Range Comments POC-GLUCOSE METER (BEAKER) 140 mg/dL 70-110 TESTED AT [address] (test fezb=6830) [place] [id number] POCT-GLUCOSE [id number] 17:57:00 Test Item Value Reference Range Comments POC-GLUCOSE METER (BEAKER) 237 mg/dL 70-110 TESTED AT [address] (test nwmr=5074) [facility] [address] TISSUE [id number] 15:18:00Surgical Pathology Report Case: [id number] Authorizing Provider: Braulio Hurley MD Collected: 11/01/2016 1102 Ordering Location: [facility] Received: 11/01/2016 0796 PERIOPERATIVE SERVICES Pathologist: Ian Wang MD Specimen: Plaque, RCA PLAQUE HEART, CORONARY ARTERY, RIGHT, ATHERECTOMY:CALCIFIC ATHEROSCLEROTIC PLAQUEElectronically signed by Ian Wang MDon 11/04/2016 at 3:18 [id number]; [id number] plaqueThe specimen is received in saline labeled with the patient's information labeled "RCA plaque" and consists of a calcified tubular-shaped segment of tissue measuring 10.5 cm in length x 0.4 cm in diameter. Representatively submitted A1 for decalcification. CG/plPerformedPOCT-GLUCOSE [id number] 12:12:00 Test Item Value Reference Range Comments POC-GLUCOSE METER (BEAKER) 90 mg/dL 70-110 TESTED AT [address] (test moxj=4741) [facility] [address] POCT-GLUCOSE [id number] 08:56:00 Test Item Value Reference Range Comments POC-GLUCOSE METER (BEAKER) 215 mg/dL 70-110 TESTED AT [address] (test qvbx=5257) [place] [address] [id number] 06:16:00 Test Item Value Reference Range Comments MAGNESIUM (BEAKER) (test dhws=658) 2.1 mg/dL 1.6-2.6 BASIC METABOLIC [id number] 06:16:00 Test Item Value Reference Range Comments SODIUM (BEAKER) (test 136 meq/L 136-145 hhdf=146) POTASSIUM (BEAKER) (test 3.6 meq/L 3.5-5.1 bqwi=067) CHLORIDE (BEAKER) (test 102 meq/L 98-107 wzyd=490) CO2 (BEAKER) (test 25 meq/L 22-29 city=301) BLOOD UREA NITROGEN 29 mg/dL 7-21 (BEAKER) (test cikl=896) CREATININE (BEAKER) (test 0.89 mg/dL 0.57-1.25 qmxx=026) GLUCOSE RANDOM (BEAKER) 123 mg/dL 70-105 (test prvy=376) CALCIUM (BEAKER) (test 8.7 mg/dL 8.4-10.2 mxyw=494) EGFR (BEAKER) (test 90 mL/min/1.73 sq m ESTIMATED GFR IS NOT yowz=0550) ACCURATE CREATININE CLEARANCE IN PREDICTING GLOMERULAR FILTRATION RATE. ESTIMATED GFR IS NOT APPLICABLE FOR DIALYSIS PATIENTS. CBC W/PLT COUNT & AUTO [id number] 05:46:00 Test Item Value Reference Range Comments WHITE BLOOD CELL COUNT (BEAKER) (test esvv=195) 9.1 K/ L 4.0-10.0 RED BLOOD CELL COUNT (BEAKER) (test kzgo=197) 2.59 M/ L 4.20-5.80 HEMOGLOBIN (BEAKER) (test bwae=507) 8.2 GM/DL 13.0-16.8 HEMATOCRIT (BEAKER) (test odbo=330) 23.6 % 40.0-50.0 MEAN CORPUSCULAR VOLUME (BEAKER) (test mbsn=791) 91.4 fL 82.0-98.0 MEAN CORPUSCULAR HEMOGLOBIN (BEAKER) (test 31.8 pg 27.0-33.0 nhmy=150) MEAN CORPUSCULAR HEMOGLOBIN CONC (BEAKER) (test 34.7 GM/DL 32.0-36.0 iwrz=630) RED CELL DISTRIBUTION WIDTH (BEAKER) (test 14.3 % 10.3-14.2 nbcp=339) PLATELET COUNT (BEAKER) (test xhmk=781) 173 K/CU MM 150-430 MEAN PLATELET VOLUME (BEAKER) (test hrzi=100) 8.3 fL 6.5-10.5 NUCLEATED RED BLOOD CELLS (BEAKER) (test 0 /100 WBC 0-0 vuqw=434) NEUTROPHILS RELATIVE PERCENT (BEAKER) (test 75 % pvub=768) LYMPHOCYTES RELATIVE PERCENT (BEAKER) (test 15 % qyxg=014) MONOCYTES RELATIVE PERCENT (BEAKER) (test 8 % pspp=762) EOSINOPHILS RELATIVE PERCENT (BEAKER) (test 2 % dxkz=212) BASOPHILS RELATIVE PERCENT (BEAKER) (test 0 % drwj=847) NEUTROPHILS ABSOLUTE COUNT (BEAKER) (test 6.79 K/ L 1.80-8.00 mgrz=127) LYMPHOCYTES ABSOLUTE COUNT (BEAKER) (test 1.38 K/ L 1.48-4.50 keuc=514) MONOCYTES ABSOLUTE COUNT (BEAKER) (test 0.71 K/ L 0.00-1.30 ozks=261) EOSINOPHILS ABSOLUTE COUNT (BEAKER) (test 0.20 K/ L 0.00-0.50 icjf=794) BASOPHILS ABSOLUTE COUNT (BEAKER) (test 0.02 K/ L 0.00-0.20 rtst=501) 0.00POCT-GLUCOSE [id number] 05:03:00 Test Item Value Reference Range Comments POC-GLUCOSE METER (BEAKER) 142 mg/dL 70-110 TESTED AT [address] (test fnkm=9175) [facility] [id number] POCT-GLUCOSE [id number] 20:57:00 Test Item Value Reference Range Comments POC-GLUCOSE METER (BEAKER) 256 mg/dL 70-110 TESTED AT [address] (test xjfg=2521) [facility] [address] POCT-GLUCOSE [id number] 18:11:00 Test Item Value Reference Range Comments POC-GLUCOSE METER (BEAKER) 243 mg/dL 70-110 TESTED AT [address] (test bvhb=8380) [place] [address] POCT-GLUCOSE [id number] 11:42:00 Test Item Value Reference Range Comments POC-GLUCOSE METER (BEAKER) 158 mg/dL 70-110 TESTED AT [address] (test tifa=6749) [place] [id number] POCT-GLUCOSE [id number] 09:13:00 Test Item Value Reference Range Comments POC-GLUCOSE METER (BEAKER) 163 mg/dL 70-110 TESTED AT [address] (test bqec=1897) [place] [id number] POCT-GLUCOSE [id number] 09:13:00 Test Item Value Reference Range Comments POC-GLUCOSE METER (BEAKER) 110 mg/dL 70-110 TESTED AT [address] (test vzvl=6054) [place] [id number] POCT-GLUCOSE [id number] 06:04:00 Test Item Value Reference Range Comments POC-GLUCOSE METER (BEAKER) 131 mg/dL 70-110 TESTED AT [address] (test akqg=3839) [place] [address] [id number] 04:25:00 Test Item Value Reference Range Comments MAGNESIUM (BEAKER) (test wxbu=273) 2.3 mg/dL 1.6-2.6 BASIC METABOLIC [id number] 04:25:00 Test Item Value Reference Range Comments SODIUM (BEAKER) (test 136 meq/L 136-145 ofhy=683) POTASSIUM (BEAKER) (test 4.1 meq/L 3.5-5.1 mprc=458) CHLORIDE (BEAKER) (test 105 meq/L 98-107 qfbk=003) CO2 (BEAKER) (test 22 meq/L 22-29 xqyw=461) BLOOD UREA NITROGEN 27 mg/dL 7-21 (BEAKER) (test ixcg=794) CREATININE (BEAKER) (test 0.87 mg/dL 0.57-1.25 fehv=910) GLUCOSE RANDOM (BEAKER) 155 mg/dL 70-105 (test wonu=713) CALCIUM (BEAKER) (test 8.4 mg/dL 8.4-10.2 tndw=079) EGFR (BEAKER) (test 92 mL/min/1.73 sq m ESTIMATED GFR IS NOT deni=7276) ACCURATE CREATININE CLEARANCE IN PREDICTING GLOMERULAR FILTRATION RATE. ESTIMATED GFR IS NOT APPLICABLE FOR DIALYSIS PATIENTS. CBC W/PLT COUNT & AUTO [id number] 04:14:00 Test Item Value Reference Range Comments WHITE BLOOD CELL COUNT (BEAKER) (test hcnh=331) 10.9 K/ L 4.0-10.0 RED BLOOD CELL COUNT (BEAKER) (test gdho=553) 2.69 M/ L 4.20-5.80 HEMOGLOBIN (BEAKER) (test wvmy=952) 8.1 GM/DL 13.0-16.8 HEMATOCRIT (BEAKER) (test lxfy=296) 24.9 % 40.0-50.0 MEAN CORPUSCULAR VOLUME (BEAKER) (test vlup=976) 92.7 fL 82.0-98.0 MEAN CORPUSCULAR HEMOGLOBIN (BEAKER) (test 30.0 pg 27.0-33.0 rpcs=451) MEAN CORPUSCULAR HEMOGLOBIN CONC (BEAKER) (test 32.3 GM/DL 32.0-36.0 rrkh=778) RED CELL DISTRIBUTION WIDTH (BEAKER) (test 13.4 % 10.3-14.2 blpz=035) PLATELET COUNT (BEAKER) (test qmay=135) 134 K/CU MM 150-430 MEAN PLATELET VOLUME (BEAKER) (test cdkt=043) 8.0 fL 6.5-10.5 NUCLEATED RED BLOOD CELLS (BEAKER) (test 0 /100 WBC 0-0 xokn=892) NEUTROPHILS RELATIVE PERCENT (BEAKER) (test 80 % vqxu=195) LYMPHOCYTES RELATIVE PERCENT (BEAKER) (test 12 % yzbs=651) MONOCYTES RELATIVE PERCENT (BEAKER) (test 8 % tvkn=816) EOSINOPHILS RELATIVE PERCENT (BEAKER) (test 1 % loyh=477) BASOPHILS RELATIVE PERCENT (BEAKER) (test 0 % vinf=389) NEUTROPHILS ABSOLUTE COUNT (BEAKER) (test 8.64 K/ L 1.80-8.00 vrsu=290) LYMPHOCYTES ABSOLUTE COUNT (BEAKER) (test 1.27 K/ L 1.48-4.50 pqgs=052) MONOCYTES ABSOLUTE COUNT (BEAKER) (test 0.82 K/ L 0.00-1.30 pgwz=014) EOSINOPHILS ABSOLUTE COUNT (BEAKER) (test 0.11 K/ L 0.00-0.50 htsb=236) BASOPHILS ABSOLUTE COUNT (BEAKER) (test 0.02 K/ L 0.00-0.20 ehkx=812) 0.00POCT-GLUCOSE [id number] 03:20:00 Test Item Value Reference Range Comments POC-GLUCOSE METER (BEAKER) 170 mg/dL 70-110 TESTED AT [address] (test xoig=4481) [facility] [address] POCT-GLUCOSE [id number] 01:40:00 Test Item Value Reference Range Comments POC-GLUCOSE METER (BEAKER) 216 mg/dL 70-110 TESTED AT [address] (test wsyl=0831) [facility] [address] POCT-GLUCOSE [id number] 00:08:00 Test Item Value Reference Range Comments POC-GLUCOSE METER (BEAKER) 227 mg/dL 70-110 TESTED AT [address] (test qlts=6219) [facility] [address] POCT-GLUCOSE [id number] 22:37:00 Test Item Value Reference Range Comments POC-GLUCOSE METER (BEAKER) 262 mg/dL 70-110 TESTED AT [address] (test yddz=7471) [facility] [address] POCT-GLUCOSE [id number] 20:41:00 Test Item Value Reference Range Comments POC-GLUCOSE METER (BEAKER) 318 mg/dL 70-110 Notified MAHAMED CRISTINA/TESTED AT [facility] (test sjpj=6786) [address] [place] [address] POCT-GLUCOSE [id number] 18:55:00 Test Item Value Reference Range Comments POC-GLUCOSE METER (BEAKER) 363 mg/dL 70-110 Notified MAHAMED CRISTINA/TESTED AT [facility] (test nuhe=9816) [address] [place] [address] POCT-GLUCOSE [id number] 18:03:00 Test Item Value Reference Range Comments POC-GLUCOSE METER (BEAKER) 408 mg/dL 70-110 Notified MAHAMED CRISTINA/TESTED AT [facility] (test tigz=5468) [address] [place] [address] POCT-GLUCOSE [id number] 16:43:00 Test Item Value Reference Range Comments POC-GLUCOSE METER (BEAKER) 413 mg/dL 70-110 Notified MAHAMED CRISTINA/TESTED AT [facility] (test gknu=8409) [address] [place] [address] POCT-GLUCOSE [id number] 11:39:00 Test Item Value Reference Range Comments POC-GLUCOSE METER (BEAKER) 332 mg/dL 70-110 Notified MAHAMED CRISTINA/TESTED AT [facility] (test mpuw=3899) [address] [place] [address] POCT-GLUCOSE [id number] 09:06:00 Test Item Value Reference Range Comments POC-GLUCOSE METER (BEAKER) 173 mg/dL 70-110 TESTED AT [address] (test ojkb=9989) [facility] [address] POCT-GLUCOSE [id number] 07:16:00 Test Item Value Reference Range Comments POC-GLUCOSE METER (BEAKER) 128 mg/dL 70-110 TESTED AT [address] (test hdnj=4047) [place] [id number] 05:44:00 Test Item Value Reference Range Comments ACTIVATED CLOTTING TIME 121 sec TESTED AT [place] [address] [address] (BEAKER) (test xvpl=250) [place] [address] [id number] 05:44:00 Test Item Value Reference Range Comments ACTIVATED CLOTTING TIME 611 sec TESTED AT [place] [address] [address] (BEAKER) (test ajec=710) [place] [address] [id number] 05:44:00 Test Item Value Reference Range Comments ACTIVATED CLOTTING TIME 858 sec TESTED AT [place] [address] [address] (BEAKER) (test qujc=786) [place] [address] [id number] 05:44:00 Test Item Value Reference Range Comments ACTIVATED CLOTTING TIME 554 sec TESTED AT [facility] [address] (BEAKER) (test scrl=658) [place] [address] CBC W/PLT COUNT & AUTO [id number] 04:59:00 Test Item Value Reference Range Comments WHITE BLOOD CELL COUNT (BEAKER) (test wbuz=145) 8.8 K/ L 4.0-10.0 RED BLOOD CELL COUNT (BEAKER) (test lifw=110) 2.91 M/ L 4.20-5.80 HEMOGLOBIN (BEAKER) (test kpoo=965) 9.0 GM/DL 13.0-16.8 HEMATOCRIT (BEAKER) (test rzei=708) 27.1 % 40.0-50.0 MEAN CORPUSCULAR VOLUME (BEAKER) (test piiq=898) 92.9 fL 82.0-98.0 MEAN CORPUSCULAR HEMOGLOBIN (BEAKER) (test 31.0 pg 27.0-33.0 svah=025) MEAN CORPUSCULAR HEMOGLOBIN CONC (BEAKER) (test 33.3 GM/DL 32.0-36.0 nedv=086) RED CELL DISTRIBUTION WIDTH (BEAKER) (test 13.2 % 10.3-14.2 ylrn=348) PLATELET COUNT (BEAKER) (test jtcy=725) 134 K/CU MM 150-430 MEAN PLATELET VOLUME (BEAKER) (test hunn=011) 8.1 fL 6.5-10.5 NUCLEATED RED BLOOD CELLS (BEAKER) (test 0 /100 WBC 0-0 robc=022) NEUTROPHILS RELATIVE PERCENT (BEAKER) (test 80 % hlgq=049) LYMPHOCYTES RELATIVE PERCENT (BEAKER) (test 13 % drgx=006) MONOCYTES RELATIVE PERCENT (BEAKER) (test 6 % qesy=860) EOSINOPHILS RELATIVE PERCENT (BEAKER) (test 0 % wtqc=498) BASOPHILS RELATIVE PERCENT (BEAKER) (test 0 % vlsk=420) NEUTROPHILS ABSOLUTE COUNT (BEAKER) (test 7.07 K/ L 1.80-8.00 okij=482) LYMPHOCYTES ABSOLUTE COUNT (BEAKER) (test 1.18 K/ L 1.48-4.50 jliu=583) MONOCYTES ABSOLUTE COUNT (BEAKER) (test 0.51 K/ L 0.00-1.30 gnes=159) EOSINOPHILS ABSOLUTE COUNT (BEAKER) (test 0.04 K/ L 0.00-0.50 swmy=648) BASOPHILS ABSOLUTE COUNT (BEAKER) (test 0.01 K/ L 0.00-0.20 jxco=200) [id number] 04:59:00 Test Item Value Reference Range Comments MAGNESIUM (BEAKER) (test rkmm=409) 2.0 mg/dL 1.6-2.6 BASIC METABOLIC [id number] 04:59:00 Test Item Value Reference Range Comments SODIUM (BEAKER) (test 142 meq/L 136-145 ktbn=329) POTASSIUM (BEAKER) (test 4.6 meq/L 3.5-5.1 npjt=683) CHLORIDE (BEAKER) (test 112 meq/L 98-107 doro=317) CO2 (BEAKER) (test 23 meq/L 22-29 dtvh=449) BLOOD UREA NITROGEN 20 mg/dL 7-21 (BEAKER) (test knaw=397) CREATININE (BEAKER) (test 0.82 mg/dL 0.57-1.25 mdai=106) GLUCOSE RANDOM (BEAKER) 118 mg/dL 70-105 (test nnhy=678) CALCIUM (BEAKER) (test 8.3 mg/dL 8.4-10.2 doxp=686) EGFR (BEAKER) (test 99 mL/min/1.73 sq m ESTIMATED GFR IS NOT iiki=2200) ACCURATE CREATININE CLEARANCE IN PREDICTING GLOMERULAR FILTRATION RATE. ESTIMATED GFR IS NOT APPLICABLE FOR DIALYSIS PATIENTS. POCT-GLUCOSE [id number] 02:19:00 Test Item Value Reference Range Comments POC-GLUCOSE METER (BEAKER) 137 mg/dL 70-110 TESTED AT [address] (test sfpw=0120) [facility] [address] POCT-GLUCOSE [id number] 23:33:00 Test Item Value Reference Range Comments POC-GLUCOSE METER (BEAKER) 118 mg/dL 70-110 TESTED AT [address] (test pybx=4449) [place] [id number] POCT-GLUCOSE [id number] 19:30:00 Test Item Value Reference Range Comments POC-GLUCOSE METER (BEAKER) 109 mg/dL 70-110 TESTED AT [address] (test wfpv=9883) [place] [address] POCT-GLUCOSE [id number] 18:24:00 Test Item Value Reference Range Comments POC-GLUCOSE METER (BEAKER) 101 mg/dL 70-110 TESTED AT [address] (test tafk=6221) [facility] [address] GLUCOSE-STAT [id number] 16:59:00 Test Item Value Reference Range Comments GLUCOSE RANDOM (BEAKER) (test omus=680) 108 mg/dL 70-110 HGB/HCT (H&H) - STAT [id number] 16:59:00 Test Item Value Reference Range Comments HEMOGLOBIN (BEAKER) (test mkep=029) 9.0 g/dL 13.0-16.8 HEMATOCRIT (BEAKER) (test jbgx=477) 26.0 % 40.0-50.0 BLOOD GAS, [id number] 16:59:00 Test Item Value Reference Range Comments PH ARTERIAL (BEAKER) (test cnuq=876) 7.37 7.35-7.45 PCO2 ARTERIAL (BEAKER) (test dupi=699) 42 mmHg 35-45 PO2 ARTERIAL (BEAKER) (test qpmz=051) 101 mmHg 80-90 O2 SATURATION ARTERIAL (BEAKER) (test ftkf=302) 97.5 % 96.0-97.0 HCO3 ARTERIAL (BEAKER) (test czba=806) 24 mmol/L 21-29 BASE EXCESS ARTERIAL (BEAKER) (test chux=099) -1.7 mmol/L -2.0-3.0 PATIENT TEMPERATURE (BEAKER) (test vsyt=1636) 36.9 C FIO2 (BEAKER) (test tuge=9730) 36.0 % POCT-GLUCOSE [id number] 15:37:00 Test Item Value Reference Range Comments POC-GLUCOSE METER (BEAKER) 152 mg/dL 70-110 TESTED AT [address] (test iqpw=8088) [facility] [address] [id number] 15:11:00 Test Item Value Reference Range Comments MAGNESIUM (BEAKER) (test olhc=948) 2.1 mg/dL 1.6-2.6 [id number] 15:10:00 Test Item Value Reference Range Comments POTASSIUM (BEAKER) (test zykt=144) 4.0 meq/L 3.5-5.1 POCT-GLUCOSE [id number] 15:03:00 Test Item Value Reference Range Comments POC-GLUCOSE METER (BEAKER) 180 mg/dL 70-110 TESTED AT [facility] [address] [facility] (test ypzr=3432) [facility] [address] POCT-GLUCOSE [id number] 13:33:00 Test Item Value Reference Range Comments POC-GLUCOSE METER (BEAKER) 213 mg/dL 70-110 TESTED AT [address] (test rnnu=2976) [facility] [address] POCT-GLUCOSE [id number] 13:33:00 Test Item Value Reference Range Comments POC-GLUCOSE METER (BEAKER) 252 mg/dL 70-110 TESTED AT [address] (test ldxp=9145) [facility] [address] BASIC METABOLIC [id number] 13:30:00 Test Item Value Reference Range Comments SODIUM (BEAKER) (test 136 meq/L 136-145 zvfy=165) POTASSIUM (BEAKER) (test 4.3 meq/L 3.5-5.1 Specimen slightly jxmk=865) hemolyzed CHLORIDE (BEAKER) (test 109 meq/L 98-107 jrrp=045) CO2 (BEAKER) (test 19 meq/L 22-29 xxpg=440) BLOOD UREA NITROGEN 22 mg/dL 7-21 (BEAKER) (test ooff=204) CREATININE (BEAKER) (test 0.92 mg/dL 0.57-1.25 Specimen slightly hacs=626) hemolyzed GLUCOSE RANDOM (BEAKER) 250 mg/dL 70-105 (test suqj=823) CALCIUM (BEAKER) (test 7.8 mg/dL 8.4-10.2 bmwy=924) EGFR (BEAKER) (test 86 mL/min/1.73 sq m ESTIMATED GFR IS NOT wpen=9009) ACCURATE CREATININE CLEARANCE IN PREDICTING GLOMERULAR FILTRATION RATE. ESTIMATED GFR IS NOT APPLICABLE FOR DIALYSIS PATIENTS. LACTIC ACID, ARTERIAL, WHOLE [id number] 13:01:00 Test Item Value Reference Range Comments LACTATE BLOOD ARTERIAL (2) 1.4 mmol/L 0.5-2.2 Specimen slightly hemolyzed (BEAKER) (test smgj=3995) Effective 10/22/2015: Units/Reference Range ChangeNew: 0.5-2.2 mmol/L Previous: 5 -20 mg/dLBLOOD GAS, [id number] 12:31:00 Test Item Value Reference Range Comments PH ARTERIAL (BEAKER) (test steh=361) 7.30 7.35-7.45 PCO2 ARTERIAL (BEAKER) (test mzne=166) 44 mmHg 35-45 PO2 ARTERIAL (BEAKER) (test xdxe=905) 222 mmHg 80-90 O2 SATURATION ARTERIAL (BEAKER) (test ribs=361) 99.4 % 96.0-97.0 HCO3 ARTERIAL (BEAKER) (test bdsf=898) 21 mmol/L 21-29 BASE EXCESS ARTERIAL (BEAKER) (test jhzo=567) -5.3 mmol/L -2.0-3.0 PATIENT TEMPERATURE (BEAKER) (test jbah=5661) 37.0 C FIO2 (BEAKER) (test wkvy=7396) 60.0 % HGB/HCT (H&H) - STAT [id number] 12:31:00 Test Item Value Reference Range Comments HEMOGLOBIN (BEAKER) (test juqm=596) 10.2 g/dL 13.0-16.8 HEMATOCRIT (BEAKER) (test xhne=782) 30.0 % 40.0-50.0 GLUCOSE-STAT [id number] 12:31:00 Test Item Value Reference Range Comments GLUCOSE RANDOM (BEAKER) (test fxck=128) 239 mg/dL 70-110 POTASSIUM-STAT [id number] 12:30:00 Test Item Value Reference Range Comments POTASSIUM (BEAKER) (test qpgo=851) 4.1 meq/L 3.6-5.5 CBC W/PLT COUNT & AUTO [id number] 12:24:00 Test Item Value Reference Range Comments WHITE BLOOD CELL COUNT (BEAKER) (test uwxh=658) 12.6 K/ L 4.0-10.0 RED BLOOD CELL COUNT (BEAKER) (test xjuk=497) 3.27 M/ L 4.20-5.80 HEMOGLOBIN (BEAKER) (test jgrz=329) 10.2 GM/DL 13.0-16.8 HEMATOCRIT (BEAKER) (test heqz=471) 29.6 % 40.0-50.0 MEAN CORPUSCULAR VOLUME (BEAKER) (test almr=492) 90.5 fL 82.0-98.0 MEAN CORPUSCULAR HEMOGLOBIN (BEAKER) (test 31.1 pg 27.0-33.0 ptto=319) MEAN CORPUSCULAR HEMOGLOBIN CONC (BEAKER) (test 34.4 GM/DL 32.0-36.0 ydgo=607) RED CELL DISTRIBUTION WIDTH (BEAKER) (test 14.2 % 10.3-14.2 egtz=892) PLATELET COUNT (BEAKER) (test xedg=353) 137 K/CU MM 150-430 MEAN PLATELET VOLUME (BEAKER) (test cunp=505) 8.1 fL 6.5-10.5 NUCLEATED RED BLOOD CELLS (BEAKER) (test 0 /100 WBC 0-0 vrpk=422) NEUTROPHILS RELATIVE PERCENT (BEAKER) (test 85 % shny=242) LYMPHOCYTES RELATIVE PERCENT (BEAKER) (test 13 % zgxj=823) MONOCYTES RELATIVE PERCENT (BEAKER) (test 2 % aikt=143) EOSINOPHILS RELATIVE PERCENT (BEAKER) (test 1 % juht=353) BASOPHILS RELATIVE PERCENT (BEAKER) (test 0 % aiso=803) NEUTROPHILS ABSOLUTE COUNT (BEAKER) (test 10.60 K/ L 1.80-8.00 bgwb=077) LYMPHOCYTES ABSOLUTE COUNT (BEAKER) (test 1.59 K/ L 1.48-4.50 pkez=366) MONOCYTES ABSOLUTE COUNT (BEAKER) (test 0.27 K/ L 0.00-1.30 rsxe=553) EOSINOPHILS ABSOLUTE COUNT (BEAKER) (test 0.06 K/ L 0.00-0.50 bppg=218) BASOPHILS ABSOLUTE COUNT (BEAKER) (test 0.02 K/ L 0.00-0.20 tqdc=012) [id number] 12:18:00 Test Item Value Reference Range Comments FIBRINOGEN LEVEL (BEAKER) (test dbhx=797) 279 mg/dl 225-434 [id number] 12:18:00 Test Item Value Reference Range Comments PARTIAL THROMBOPLASTIN TIME (BEAKER) (test 33.1 seconds 22.5-36.0 toqh=303) PROTHROMBIN [id number] 12:17:00 Test Item Value Reference Range Comments PROTIME (BEAKER) (test lewu=903) 16.4 seconds 11.7-14.7 INR (BEAKER) (test llvm=759) 1.3 <=5.9 RECOMMENDED COUMADIN/WARFARIN INR THERAPY RANGESSTANDARD DOSE: 2.0 - 3.0 Includes: PROPHYLAXIS forvenous thrombosis, systemic embolization; TREATMENT for venous thrombosis and/or pulmonary embolus.HIGH RISK: Target INR is 2.5-3.5 for patients with mechanical heart valves.OXYGEN SATURATION, [id number] 12:02:00 Test Item Value Reference Range Comments O2 SATURATION (MEASURED) (BEAKER) (test ufaw=4869) 74.7 % CALCIUM, [id number] 11:58:00 Test Item Value Reference Range Comments CALCIUM IONIZED (BEAKER) (test wbkk=720) 1.17 mmol/L 1.12-1.27 PH, BLOOD (BEAKER) (test bwcp=3172) 7.29 THROMBOELASTOGRAPH (TEG)[id number] 11:02:00 Test Item Value Reference Range Comments TEG ACTIVATED CLOTTING TIME (BEAKER) (test 4.4 minutes 4.0-7.0 qhfg=9642) TEG FIBRINOGEN ACTIVITY (BEAKER) (test 71.9 degrees 61.0-73.0 ojxz=9034) TEG PLT. AGGREGATION (BEAKER) (test nyze=9842) 47.5 MM 55.0-65.0 TGH ACTIVATED CLOTTING TIME (BEAKER) (test 5.3 minutes 4.0-7.0 afjf=5158) TGH FIBRINOGEN ACTIVITY (BEAKER) (test 68.1 degrees 61.0-73.0 asdj=0679) TGH PLT. AGGREGATION (BEAKER) (test cybf=2730) 50.1 MM 55.0-65.0 PLATELET [id number] 10:45:00 Test Item Value Reference Range Comments PLATELET COUNT (BEAKER) (test ubqg=707) 114 K/CU MM 150-430 BLOOD GAS, [id number] 10:42:00 Test Item Value Reference Range Comments PH ARTERIAL (BEAKER) (test vnjc=652) 7.36 7.35-7.45 PCO2 ARTERIAL (BEAKER) (test zyow=892) 40 mmHg 35-45 PO2 ARTERIAL (BEAKER) (test hhei=400) 81 mmHg 80-90 O2 SATURATION ARTERIAL (BEAKER) (test euac=665) 96.5 % 96.0-97.0 HCO3 ARTERIAL (BEAKER) (test hsyp=563) 23 mmol/L 21-29 BASE EXCESS ARTERIAL (BEAKER) (test pgrk=376) -3.2 mmol/L -2.0-3.0 PATIENT TEMPERATURE (BEAKER) (test ebgw=6797) 35.1 C FIO2 (BEAKER) (test tspk=1850) 40.0 % SODIUM NA-STAT [id number] 10:42:00 Test Item Value Reference Range Comments SODIUM (BEAKER) (test gaba=281) 132 meq/L 135-148 GLUCOSE-STAT [id number] 10:42:00 Test Item Value Reference Range Comments GLUCOSE RANDOM (BEAKER) (test psdi=591) 251 mg/dL 70-110 HGB/HCT (H&H) - STAT [id number] 10:42:00 Test Item Value Reference Range Comments HEMOGLOBIN (BEAKER) (test knzn=806) 8.9 g/dL 13.0-16.8 HEMATOCRIT (BEAKER) (test bysl=618) 26.0 % 40.0-50.0 CALCIUM, [id number] 10:42:00 Test Item Value Reference Range Comments CALCIUM IONIZED (BEAKER) (test fogp=775) 0.94 mmol/L 1.12-1.27 PH, BLOOD (BEAKER) (test ykzp=3041) 7.33 POTASSIUM-STAT [id number] 10:41:00 Test Item Value Reference Range Comments POTASSIUM (BEAKER) (test kfrr=939) 4.2 meq/L 3.6-5.5 [id number] 10:31:00 Test Item Value Reference Range Comments FIBRINOGEN LEVEL (BEAKER) (test jxwa=310) 287 mg/dl 225-434 [id number] 10:31:00 Test Item Value Reference Range Comments PARTIAL THROMBOPLASTIN TIME (BEAKER) (test 36.2 seconds 22.5-36.0 eeec=100) PROTHROMBIN [id number] 10:30:00 Test Item Value Reference Range Comments PROTIME (BEAKER) (test zhzs=521) 18.5 seconds 11.7-14.7 INR (BEAKER) (test kqgt=030) 1.6 <=5.9 RECOMMENDED COUMADIN/WARFARIN INR THERAPY RANGESSTANDARD DOSE: 2.0 - 3.0 Includes: PROPHYLAXIS forvenous thrombosis, systemic embolization; TREATMENT for venous thrombosis and/or pulmonary embolus.HIGH RISK: Target INR is 2.5-3.5 for patients with mechanical heart valves.BLOOD GAS, [id number] 10:21:00 Test Item Value Reference Range Comments PH ARTERIAL (BEAKER) (test wopb=079) 7.30 7.35-7.45 PCO2 ARTERIAL (BEAKER) (test rfef=339) 51 mmHg 35-45 PO2 ARTERIAL (BEAKER) (test gulw=701) 241 mmHg 80-90 O2 SATURATION ARTERIAL (BEAKER) (test xlex=881) 99.5 % 96.0-97.0 HCO3 ARTERIAL (BEAKER) (test gpdz=192) 25 mmol/L 21-29 BASE EXCESS ARTERIAL (BEAKER) (test lgzr=128) -2.5 mmol/L -2.0-3.0 PATIENT TEMPERATURE (BEAKER) (test pjmg=7869) 35.2 C FIO2 (BEAKER) (test rcml=6748) 70.0 % SODIUM NA-STAT [id number] 10:21:00 Test Item Value Reference Range Comments SODIUM (BEAKER) (test dskn=448) 130 meq/L 135-148 GLUCOSE-STAT [id number] 10:21:00 Test Item Value Reference Range Comments GLUCOSE RANDOM (BEAKER) (test mvqa=606) 261 mg/dL 70-110 HGB/HCT (H&H) - STAT [id number] 10:21:00 Test Item Value Reference Range Comments HEMOGLOBIN (BEAKER) (test gmgq=633) 9.2 g/dL 13.0-16.8 HEMATOCRIT (BEAKER) (test hjup=958) 27.0 % 40.0-50.0 POTASSIUM-STAT [id number] 10:20:00 Test Item Value Reference Range Comments POTASSIUM (BEAKER) (test dpef=029) 4.7 meq/L 3.6-5.5 CALCIUM, [id number] 10:18:00 Test Item Value Reference Range Comments CALCIUM IONIZED (BEAKER) (test uypq=633) 1.12 mmol/L 1.12-1.27 PH, BLOOD (BEAKER) (test uofx=7583) 7.27 POTASSIUM-STAT [id number] 09:54:00 Test Item Value Reference Range Comments POTASSIUM (BEAKER) (test jyek=253) 4.9 meq/L 3.6-5.5 BLOOD GAS, [id number] 09:54:00 Test Item Value Reference Range Comments PH ARTERIAL (BEAKER) (test noha=148) 7.33 7.35-7.45 PCO2 ARTERIAL (BEAKER) (test abkg=297) 46 mmHg 35-45 PO2 ARTERIAL (BEAKER) (test nywm=011) 269 mmHg 80-90 O2 SATURATION ARTERIAL (BEAKER) (test zsix=637) 99.6 % 96.0-97.0 HCO3 ARTERIAL (BEAKER) (test hech=147) 24 mmol/L 21-29 BASE EXCESS ARTERIAL (BEAKER) (test nevu=956) -2.5 mmol/L -2.0-3.0 PATIENT TEMPERATURE (BEAKER) (test mgxi=7524) 36.0 C FIO2 (BEAKER) (test gdkx=4550) 70.0 % SODIUM NA-STAT [id number] 09:54:00 Test Item Value Reference Range Comments SODIUM (BEAKER) (test shkv=658) 130 meq/L 135-148 GLUCOSE-STAT [id number] 09:54:00 Test Item Value Reference Range Comments GLUCOSE RANDOM (BEAKER) (test cuad=081) 189 mg/dL 70-110 HGB/HCT (H&H) - STAT [id number] 09:54:00 Test Item Value Reference Range Comments HEMOGLOBIN (BEAKER) (test inqn=857) 8.7 g/dL 13.0-16.8 HEMATOCRIT (BEAKER) (test mfts=103) 26.0 % 40.0-50.0 BLOOD GAS, [id number] 09:34:00 Test Item Value Reference Range Comments PH ARTERIAL (BEAKER) (test tmha=083) 7.36 7.35-7.45 PCO2 ARTERIAL (BEAKER) (test wfjf=181) 42 mmHg 35-45 PO2 ARTERIAL (BEAKER) (test antw=504) 314 mmHg 80-90 O2 SATURATION ARTERIAL (BEAKER) (test fjec=210) 99.7 % 96.0-97.0 HCO3 ARTERIAL (BEAKER) (test lvli=382) 25 mmol/L 21-29 BASE EXCESS ARTERIAL (BEAKER) (test jfwy=412) -2.3 mmol/L -2.0-3.0 PATIENT TEMPERATURE (BEAKER) (test zxue=1398) 31.0 C FIO2 (BEAKER) (test zohl=7578) 70.0 % SODIUM NA-STAT [id number] 09:34:00 Test Item Value Reference Range Comments SODIUM (BEAKER) (test hiwa=463) 127 meq/L 135-148 POTASSIUM-STAT [id number] 09:34:00 Test Item Value Reference Range Comments POTASSIUM (BEAKER) (test zmbd=370) 5.5 meq/L 3.6-5.5 GLUCOSE-STAT [id number] 09:34:00 Test Item Value Reference Range Comments GLUCOSE RANDOM (BEAKER) (test wlah=726) 177 mg/dL 70-110 HGB/HCT (H&H) - STAT [id number] 09:34:00 Test Item Value Reference Range Comments HEMOGLOBIN (BEAKER) (test jtrs=032) 7.9 g/dL 13.0-16.8 HEMATOCRIT (BEAKER) (test yprf=357) 23.0 % 40.0-50.0 BLOOD GAS, [id number] 09:33:00 Test Item Value Reference Range Comments PH VENOUS (BEAKER) (test fjqv=957) 7.33 7.32-7.42 PCO2 VENOUS (BEAKER) (test zizi=053) 49 mmHg 41-51 PO2 VENOUS (BEAKER) (test pvkk=591) 44 mmHg 25-40 O2 SATURATION VENOUS (BEAKER) (test fjjm=141) 89.4 % 40.0-70.0 HCO3 VENOUS (BEAKER) (test ywhy=616) 28 mmol/L 21-29 BASE EXCESS VENOUS (BEAKER) (test xciv=641) -0.1 mmol/L -2.0-3.0 PATIENT TEMPERATURE (BEAKER) (test wyvz=0462) 31.0 C FIO2 (BEAKER) (test fgke=7273) 70.0 % SODIUM NA-STAT [id number] 08:42:00 Test Item Value Reference Range Comments SODIUM (BEAKER) (test iqiz=132) 135 meq/L 135-148 BLOOD GAS, [id number] 08:42:00 Test Item Value Reference Range Comments PH ARTERIAL (BEAKER) (test zhgn=289) 7.47 7.35-7.45 PCO2 ARTERIAL (BEAKER) (test krka=294) 37 mmHg 35-45 PO2 ARTERIAL (BEAKER) (test neef=576) 405 mmHg 80-90 O2 SATURATION ARTERIAL (BEAKER) (test lkad=631) 99.8 % 96.0-97.0 HCO3 ARTERIAL (BEAKER) (test xtcm=511) 27 mmol/L 21-29 BASE EXCESS ARTERIAL (BEAKER) (test ouru=576) 2.6 mmol/L -2.0-3.0 PATIENT TEMPERATURE (BEAKER) (test nxla=6497) 36.4 C FIO2 (BEAKER) (test otve=4260) 100.0 % POTASSIUM-STAT [id number] 08:42:00 Test Item Value Reference Range Comments POTASSIUM (BEAKER) (test oupq=861) 3.3 meq/L 3.6-5.5 GLUCOSE-STAT [id number] 08:42:00 Test Item Value Reference Range Comments GLUCOSE RANDOM (BEAKER) (test zrhi=929) 214 mg/dL 70-110 HGB/HCT (H&H) - STAT [id number] 08:42:00 Test Item Value Reference Range Comments HEMOGLOBIN (BEAKER) (test xrey=385) 13.2 g/dL 13.0-16.8 HEMATOCRIT (BEAKER) (test ruru=996) 39.0 % 40.0-50.0 CALCIUM, [id number] 08:42:00 Test Item Value Reference Range Comments CALCIUM IONIZED (BEAKER) (test jiiu=660) 1.08 mmol/L 1.12-1.27 PH, BLOOD (BEAKER) (test keqi=9195) 7.46 POCT-GLUCOSE [id number] 06:55:00 Test Item Value Reference Range Comments POC-GLUCOSE METER (BEAKER) 229 mg/dL 70-110 TESTED AT [facility] [address] [facility] (test strb=0466) [facility] [id number] HEMOGLOBIN [id number] 11:00:00 Test Item Value Reference Range Comments HEMOGLOBIN A1C (BEAKER) (test nipz=379) 15.1 % 4.3-6.1 BASIC METABOLIC [id number] 10:01:00 Test Item Value Reference Range Comments SODIUM (BEAKER) (test 135 meq/L 136-145 dnqf=288) POTASSIUM (BEAKER) (test 4.6 meq/L 3.5-5.1 bgwn=619) CHLORIDE (BEAKER) (test 100 meq/L 98-107 llfl=735) CO2 (BEAKER) (test 23 meq/L 22-29 iwmn=004) BLOOD UREA NITROGEN 19 mg/dL 7-21 (BEAKER) (test gmda=089) CREATININE (BEAKER) (test 1.16 mg/dL 0.57-1.25 juno=754) GLUCOSE RANDOM (BEAKER) 352 mg/dL 70-105 (test bppm=320) CALCIUM (BEAKER) (test 9.9 mg/dL 8.4-10.2 fpjp=597) EGFR (BEAKER) (test 66 mL/min/1.73 sq m ESTIMATED GFR IS NOT kpcv=1877) ACCURATE CREATININE CLEARANCE IN PREDICTING GLOMERULAR FILTRATION RATE. ESTIMATED GFR IS NOT APPLICABLE FOR DIALYSIS PATIENTS. [id number] 09:46:00 Test Item Value Reference Range Comments PROTIME (BEAKER) (test lsko=781) 12.4 seconds 11.7-14.7 INR (BEAKER) (test odjr=233) 0.9 <=5.9 PARTIAL THROMBOPLASTIN TIME (BEAKER) (test 27.5 seconds 22.5-36.0 wewg=637) RECOMMENDED COUMADIN/WARFARIN INR THERAPY RANGESSTANDARD DOSE: 2.0 - 3.0 Includes: PROPHYLAXIS forvenous thrombosis, systemic embolization; TREATMENT for venous thrombosis and/or pulmonary embolus.HIGH RISK: Target INR is 2.5-3.5 for patients with mechanical heart valves.CBC W/PLT COUNT & AUTO [id number] 09:40:00 Test Item Value Reference Range Comments WHITE BLOOD CELL COUNT (BEAKER) (test jyon=008) 8.9 K/ L 4.0-10.0 RED BLOOD CELL COUNT (BEAKER) (test ilay=438) 5.02 M/ L 4.20-5.80 HEMOGLOBIN (BEAKER) (test btqb=705) 15.2 GM/DL 13.0-16.8 HEMATOCRIT (BEAKER) (test gjtv=674) 46.1 % 40.0-50.0 MEAN CORPUSCULAR VOLUME (BEAKER) (test dvhx=833) 91.8 fL 82.0-98.0 MEAN CORPUSCULAR HEMOGLOBIN (BEAKER) (test 30.3 pg 27.0-33.0 jrva=187) MEAN CORPUSCULAR HEMOGLOBIN CONC (BEAKER) (test 33.0 GM/DL 32.0-36.0 fcnd=967) RED CELL DISTRIBUTION WIDTH (BEAKER) (test 13.4 % 10.3-14.2 ixmr=605) PLATELET COUNT (BEAKER) (test qeey=756) 219 K/CU MM 150-430 MEAN PLATELET VOLUME (BEAKER) (test kwys=815) 8.8 fL 6.5-10.5 NUCLEATED RED BLOOD CELLS (BEAKER) (test 0 /100 WBC 0-0 zjns=192) NEUTROPHILS RELATIVE PERCENT (BEAKER) (test 68 % hngj=493) LYMPHOCYTES RELATIVE PERCENT (BEAKER) (test 25 % eczb=986) MONOCYTES RELATIVE PERCENT (BEAKER) (test 4 % hkwx=312) EOSINOPHILS RELATIVE PERCENT (BEAKER) (test 2 % rwri=127) BASOPHILS RELATIVE PERCENT (BEAKER) (test 1 % nlev=268) NEUTROPHILS ABSOLUTE COUNT (BEAKER) (test 6.03 K/ L 1.80-8.00 yoyp=278) LYMPHOCYTES ABSOLUTE COUNT (BEAKER) (test 2.25 K/ L 1.48-4.50 pasd=408) MONOCYTES ABSOLUTE COUNT (BEAKER) (test 0.39 K/ L 0.00-1.30 qnrs=096) EOSINOPHILS ABSOLUTE COUNT (BEAKER) (test 0.14 K/ L 0.00-0.50 mdgc=512) BASOPHILS ABSOLUTE COUNT (BEAKER) (test 0.06 K/ L 0.00-0.20 ygql=289) 0.00
[2018-04-18] MEDS ORDERED: NA CHLORIDE 0.9% 1,000 ML ONE (11:48)
[2018-04-18] MEDS ORDERED: AZITHROMYCIN 500 MG/250 ML BAG ONE (11:48)
[2018-04-18] MEDS ORDERED: CEFTRIAXONE/SWI 1gm 1 GM/10 ML SYR ONE (11:48)
[2018-04-18 12:24] LABS: Protime INR 0.93
[2018-04-18 12:25] LABS: Absolute Lymphocytes (CBC) 1.7 K/uL (0.7-4.9); Absolute Monocytes 0.4 K/uL (0.1-1.3); Absolute Neutrophil 4.3 K/uL (1.8-8.0); Eosinophils % 2.1 % (0-4.4); Hematocrit 42.9 % (39.6-49.0); Lymphocytes % 25.6 % (15.3-44.8); MCH 29.2 pg (27.0-35.0); MPV 9.8 fL (7.6-11.3); Monocytes % 6.5 % (3.3-12.3); RBC Red Blood Cell Count 4.82 M/uL (4.33-5.43)
--- NOTE | 2018-04-18 13:19 | ER ---
Nurse's Notes [facility] Name: Los Griggs Jr Age: 52 yrs Sex: Male : 1965 Arrival Date: 04/18/2018 Time: 10:[address] Private MD: Diagnosis: Hemoptysis;Mycoplasma pneumoniae [M. pneumoniae] as the cause of diseases classified elsewhere Presentation: 04/18 11:03 Presenting complaint: Patient states: Coughing up a lot blood since last night. jl7 Transition of care: patient was not received from another setting of care. Onset of symptoms was April 17, 2018. Risk Assessment: Do you want to hurt yourself or someone else? Patient reports no desire to harm self or others. Initial Sepsis Screen: Does the patient meet any 2 criteria? No. Patient's initial sepsis screen is negative. Does the patient have a suspected source of infection? No. Patient's initial sepsis screen is negative. Care prior to arrival: None. 11:03 Method Of Arrival: Ambulatory [facility] 11:03 Acuity: JAIMEE 3 jl7 Triage Assessment: 11:06 General: Appears in no apparent distress. uncomfortable, Behavior is calm, cooperative, jl7 appropriate for age. Pain: Denies pain. 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 - Social history:: Smoking status: Patient/guardian denies using tobacco. - Ebola Screening: : No symptoms or risks identified at this time. Screenin:30 Abuse screen: Denies threats or abuse. Denies injuries from another. Nutritional sg screening: No deficits noted. Tuberculosis screening: No symptoms or risk factors identified. Never had TB. Fall Risk None identified. Assessment: 11:50 General: Appears in no apparent distress. comfortable, well groomed, well developed, sg well nourished, Behavior is calm, cooperative, appropriate for age. Pain: Denies pain. Neuro: No deficits noted. Cardiovascular: Heart tones S1 S2 present Patient's skin is warm and dry. Chest pain is denied. Respiratory: Airway is patent Respiratory effort is even, unlabored, Respiratory pattern is regular, symmetrical, Breath sounds are clear Parent/caregiver reports the patient having cough that is with bloody sputum. GI: Abdomen is round non-distended, Reports tolerance of fluids, tolerance of food. : No signs and/or symptoms were reported regarding the genitourinary system. EENT: Nares are clear Oral mucosa is moist. Throat is clear. Derm: Skin is pink, warm \T\ dry. Musculoskeletal: No signs and/or symptoms reported regarding the musculoskeletal system. 12:33 Reassessment: Patient appears in no apparent distress at this time. sputum culture sent sg to lab, very small amount of bloody sputum noted, pt encouraged to give sputum and not actual spit, pt stated understanding. 13:00 Reassessment: Patient appears in no apparent distress at this time. Patient and/or sg family updated on plan of care and expected duration. Pain level reassessed. Patient is alert, oriented x 3, equal unlabored respirations, skin warm/dry/pink. 14:00 Reassessment: Patient appears in no apparent distress at this time. Patient and/or sg family updated on plan of care and expected duration. Pain level reassessed. Patient is alert, oriented x 3, equal unlabored respirations, skin warm/dry/pink. Patient states feeling better. 15:00 Reassessment: Patient appears in no apparent distress at this time. Patient and/or sg family updated on plan of care and expected duration. Pain level reassessed. Patient is alert, oriented x 3, equal unlabored respirations, skin warm/dry/pink. Patient states feeling better. Vital Signs: 11:06 BP 153 / 89; Pulse 79; Resp 18 S; Temp 98.8(O); Pulse Ox 95% on R/A; Weight 95.25 kg jl7 (R); Height 5 ft. 10 in. (177.80 cm) (R); Pain 0/10; 13:00 BP 142 / 77; Pulse 77; Resp 18; Temp 98.8; Pulse Ox 96% on R/A; Pain 0/10; sg 14:00 BP 148 / 82; Pulse 79; Resp 17; Pulse Ox 97% on R/A; Pain 0/10; sg 15:04 BP 162 / 84; Pulse 75; Resp 17 S; Temp 98.8; Pulse Ox 97% on R/A; Pain 0/10; sg 11:06 Body Mass Index 30.13 (95.25 kg, 177.80 cm) jl7 ED Course: 10:42 Patient arrived in ED. as 11:05 Triage completed. jl7 11:06 Arm band placed on right wrist. 7 11:10 Felipe Parks, RN is Primary Nurse. sg 11:15 Patient has correct armband on for positive identification. Bed in low position. Call sg light in reach. Side rails up X2. clinical research monitor on. Pulse ox on. NIBP on. Warm blanket given. Head of bed elevated. 11:16 Bienvenido Rubio MD is Attending Physician. [facility] 11:39 Radiology exam delayed due to lab results not completed at this time. (BUN/Creatinine). sj 11:48 X-ray completed. Portable x-ray completed in exam room. Patient tolerated procedure ag1 well. 11:50 EKG done, by computer repair technician. reviewed by Bienvenido Rubio MD. at1 11:53 XRAY Chest (1 view) In Process Unspecified. EDMS 11:55 No provider procedures requiring assistance completed. sg 12:00 Initial lab(s) drawn, by wa, sent to lab. First set of blood cultures drawn by wa. 5 12:08 Inserted saline lock: 20 gauge in right antecubital area, using aseptic technique. 5 Blood collected. 12:15 Second set of blood cultures drawn by wa. [facility] 12:30 Radiology exam delayed due to lab results not completed at this time. (BUN/Creatinine). 12:35 Sputum Culture Sent. [facility] 12:35 Blood Culture Adult (2) Sent. [facility] 12:35 Lipase Sent. [facility] 12:35 Basic Metabolic Panel Sent. [facility] 12:35 LFT's Sent. [facility] 12:35 Troponin (emerg Dept Use Only) Sent. [facility] 13:17 Opal Stephens MD is Hospitalizing Provider. [facility] 13:33 Radiology exam delayed due to lab results not completed at this time. (BUN/Creatinine). sj 15:02 Patient admitted, IV remains in place. intact, No redness/swelling at site. sg 15:18 Echocardiogram with doppler done by architectural technician. tc Administered Medications: 11:57 Not Given (Other Intervention Used): Rocephin - (cefTRIAXone) 1 grams IVPB once over 30 sg mins; (mix in 50 mL NS) 13:16 Drug: NS 0.9% 1000 ml Route: IV; Rate: 125 ml/hr; Site: right antecubital; sg 14:00 Drug: Rocephin 1 grams Route: IV; Rate: 1 calculated rate; Site: right antecubital; sg 14:00 Drug: Pepcid 20 mg Route: IVP; Site: right antecubital; sg 14:40 Drug: Zithromax 500 mg Route: IVPB; Infused Over: 1 hrs; Site: right antecubital; sg Outcome: 13:18 Decision to Hospitalize by Provider. dannie 15:02 Admitted to Med/surg accompanied by tech, via wheelchair, room 208, with chart, Report sg called to MAHAMED Morelos 15:02 Condition: stable 15:02 Instructed on the need for admit, safety practices, Demonstrated understanding of instructions, follow-up care. 16:23 Patient left the ED. sg Signatures: Dispatcher [employer] EDFelipe Neumann RN RN Bienvenido Reid MD MD cha Jones, Kayy Cadet Amanda, surgical technician EKG Tat1 Ileana Graf, surgical technician EKG Ttc Oriana Cesar 1 Miley Roper 5 Umesh Guidry RN RN jl7
--- NOTE | 2018-04-18 13:19 | EDPHYS ---
Physician Documentation [facility] Name: Los Griggs Jr Age: 52 yrs Sex: Male : 1965 Arrival Date: 04/18/2018 Time: 10:[address] Private MD: ED Physician Bienvenido Rubio HPI: 04/18 13:11 This 52 yrs old Male presents to ER via Ambulatory with complaints of Cough. dannie 13:11 This 52 yrs old Male presents to ER via Ambulatory with complaints of Cough, dannie bloody sputum. 13:11 The patient or guardian reports cough, described as mild. dannie 13:11 The patient has shortness of breath at rest, with light activity. Onset: The dannie symptoms/episode began/occurred just prior to arrival, this morning. Duration: The symptoms once. The patient's shortness of breath has no apparent modifying factors. Associated signs and symptoms: The patient has no apparent associated signs or symptoms. Severity of symptoms: At their worst the symptoms were mild in the emergency department the symptoms have resolved and did so just prior to arrival. Severity of symptoms: At their worst the symptoms were mild, in the emergency department the symptoms have resolved, and did so just prior to arrival. Modifying factors: The symptoms are alleviated by nothing, the symptoms are aggravated by nothing. Associated signs and symptoms: The patient has no apparent associated signs or symptoms. 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 - Social history:: Smoking status: Patient/guardian denies using tobacco. - Ebola Screening: : No symptoms or risks identified at this time. ROS: 13:12 Constitutional: Negative for fever, chills, and weight loss, Eyes: Negative for injury, dannie pain, redness, and discharge, ENT: Negative for injury, pain, and discharge, Neck: Negative for injury, pain, and swelling, Cardiovascular: Negative for chest pain, palpitations, and edema, Back: Negative for injury and pain, : Negative for injury, bleeding, discharge, and swelling, MS/Extremity: Negative for injury and deformity, Skin: Negative for injury, rash, and discoloration, Neuro: Negative for headache, weakness, numbness, tingling, and seizure, Psych: Negative for depression, anxiety, suicide ideation, homicidal ideation, and hallucinations, Allergy/Immunology: Negative for hives, rash, and allergies, Endocrine: Negative for neck swelling, polydipsia, polyuria, polyphagia, and marked weight changes, Hematologic/Lymphatic: Negative for swollen nodes, abnormal bleeding, and unusual bruising. 13:12 Respiratory: Positive for cough, shortness of breath, at rest. Exam: 13:12 Constitutional: This is a well developed, well nourished patient who is awake, alert, dannie and in no acute distress. Head/Face: Normocephalic, atraumatic. Eyes: Pupils equal round and reactive to light, extra-ocular motions intact. Lids and lashes normal. Conjunctiva and sclera are non-icteric and not injected. Cornea within normal limits. Periorbital areas with no swelling, redness, or edema. ENT: Nares patent. No nasal discharge, no septal abnormalities noted. Tympanic membranes are normal and external auditory canals are clear. Oropharynx with no redness, swelling, or masses, exudates, or evidence of obstruction, uvula midline. Mucous membranes moist. Neck: Trachea midline, no thyromegaly or masses palpated, and no cervical lymphadenopathy. Supple, full range of motion without nuchal rigidity, or vertebral point tenderness. No Meningismus. Chest/axilla: Normal chest wall appearance and motion. Nontender with no deformity. No lesions are appreciated. Cardiovascular: Regular rate and rhythm with a normal S1 and S2. No gallops, murmurs, or rubs. Normal PMI, no JVD. No pulse deficits. Abdomen/GI: Soft, non-tender, with normal bowel sounds. No distension or tympany. No guarding or rebound. No evidence of tenderness throughout. Back: No spinal tenderness. No costovertebral tenderness. Full range of motion. Male : Normal genitalia with no discharge or lesions. Skin: Warm, dry with normal turgor. Normal color with no rashes, no lesions, and no evidence of cellulitis. MS/ Extremity: Pulses equal, no cyanosis. Neurovascular intact. Full, normal range of motion. Neuro: Awake and alert, GCS 15, oriented to person, place, time, and situation. Cranial nerves II-XII grossly intact. Motor strength 5/5 in all extremities. Sensory grossly intact. Cerebellar exam normal. Normal gait. Psych: Awake, alert, with orientation to person, place and time. Behavior, mood, and affect are within normal limits. 13:12 Respiratory: the patient does not display signs of respiratory distress, Respirations: normal, Breath sounds: bronchial sounds, that are mild, are scattered, decreased breath sounds, that are mild, rhonchi, that are mild, that are moderate, are scattered, stridor, is not appreciated, + upper airway congestion. Vital Signs: 11:06 BP 153 / 89; Pulse 79; Resp 18 S; Temp 98.8(O); Pulse Ox 95% on R/A; Weight 95.25 kg jl7 (R); Height 5 ft. 10 in. (177.80 cm) (R); Pain 0/10; 13:00 BP 142 / 77; Pulse 77; Resp 18; Temp 98.8; Pulse Ox 96% on R/A; Pain 0/10; sg 14:00 BP 148 / 82; Pulse 79; Resp 17; Pulse Ox 97% on R/A; Pain 0/10; sg 15:04 BP 162 / 84; Pulse 75; Resp 17 S; Temp 98.8; Pulse Ox 97% on R/A; Pain 0/10; sg 11:06 Body Mass Index 30.13 (95.25 kg, 177.80 cm) jl7 MDM: 11:16 [facility] 13:14 Data reviewed: vital signs, nurses notes, lab test result(s), EKG, radiologic studies, [facility] CT scan, plain films. 04/18 11:37 Order name: Basic Metabolic Panel; Complete Time: 14:15 [facility] 04/18 11:37 Order name: CBC with Diff; Complete Time: 13:05 [facility] 04/18 11:37 Order name: LFT's; Complete Time: 14:15 [facility] 04/18 11:37 Order name: Magnesium; Complete Time: 14:15 [facility] 04/18 11:37 Order name: NT PRO-BNP; Complete Time: 14:15 [facility] 04/18 11:37 Order name: PT-INR; Complete Time: 13:05 [facility] 04/18 11:37 Order name: Troponin (emerg Dept Use Only); Complete Time: 14:15 [facility] 04/18 11:37 Order name: XRAY Chest (1 view) [facility] 04/18 11:37 Order name: Lipase; Complete Time: 14:15 [facility] 04/18 11:37 Order name: Blood Culture Adult (2) [facility] 04/18 11:37 Order name: Sputum Culture [facility] 04/18 11:37 Order name: CT Chest For PE Angio [facility] 04/18 14:16 Order name: Echo w/ Doppler [facility] 04/18 14:18 Order name: CT; Complete Time: 14:27 EDDE 04/18 11:37 Order name: EKG; Complete Time: 11:39 [facility] 04/18 11:37 Order name: Cardiac monitoring; Complete Time: 11:38 [facility] 04/18 11:37 Order name: EKG - Nurse/Tech; Complete Time: 11:38 [facility] 04/18 11:37 Order name: IV Saline Lock; Complete Time: 11:38 [facility] 04/18 11:37 Order name: Labs collected and sent; Complete Time: 11:38 [facility] 04/18 11:37 Order name: O2 Per Protocol; Complete Time: 11:38 [facility] 04/18 11:37 Order name: O2 Sat Monitoring; Complete Time: 11:38 [facility] 04/18 12:43 Order name: Labs - recollect needed; Complete Time: 13:16 04/18 13:24 Order name: CONS Physician Consult EDMS Administered Medications: 11:57 Not Given (Other Intervention Used): Rocephin - (cefTRIAXone) 1 grams IVPB once over 30 sg mins; (mix in 50 mL NS) 13:16 Drug: NS 0.9% 1000 ml Route: IV; Rate: 125 ml/hr; Site: right antecubital; sg 14:00 Drug: Rocephin 1 grams Route: IV; Rate: 1 calculated rate; Site: right antecubital; sg 14:00 Drug: Pepcid 20 mg Route: IVP; Site: right antecubital; sg 14:40 Drug: Zithromax 500 mg Route: IVPB; Infused Over: 1 hrs; Site: right antecubital; sg Disposition: 04/18/18 13:18 Hospitalization ordered by Opal Stephens for Observation. Preliminary diagnosis are Hemoptysis, Mycoplasma pneumoniae [M. pneumoniae] as the cause of diseases classified elsewhere. - Bed requested for Telemetry/MedSurg (observation). - Status is Observation. sg - Condition is Fair. - Problem is new. - Symptoms have improved. UTI on Admission? No Signatures: Dispatcher [employer] EDMS Manisha Boo Diana, RN RN dw Gay, Steven, RN RN sg Anderson, Corey, MD MD cha Leal, Jahala RN RN jl7 Corrections: (The following items were deleted from the chart) 14:29 13:18 Hospitalization Ordered by Opal Stephens MD for Observation. Preliminary diagnosis dw is Hemoptysis; Mycoplasma pneumoniae [M. pneumoniae] as the cause of diseases classified elsewhere. Bed requested for Telemetry/MedSurg (observation). Status is Observation. Condition is Fair. Problem is new. Symptoms have improved. UTI on Admission? No. dannie 15:13 14:29 04/18/2018 13:18 Hospitalization Ordered by Opal Stephens MD for Observation. sg Preliminary diagnosis is Hemoptysis; Mycoplasma pneumoniae [M. pneumoniae] as the cause of diseases classified elsewhere. Bed requested for Telemetry/MedSurg (observation). Status is Observation. Condition is Fair. Problem is new. Symptoms have improved. UTI on Admission? No. dw 15:53 15:13 04/18/2018 13:18 Hospitalization Ordered by Opal Stephens MD for Observation. dw Preliminary diagnosis is Hemoptysis; Mycoplasma pneumoniae [M. pneumoniae] as the cause of diseases classified elsewhere. Bed requested for Telemetry/MedSurg (observation). Status is Observation. Condition is Fair. Problem is new. Symptoms have improved. UTI on Admission? No. sg 16:23 15:53 04/18/2018 13:18 Hospitalization Ordered by Opal Stephens MD for Observation. sg Preliminary diagnosis is Hemoptysis; Mycoplasma pneumoniae [M. pneumoniae] as the cause of diseases classified elsewhere. Bed requested for Telemetry/MedSurg (observation). Status is Observation. Condition is Fair. Problem is new. Symptoms have improved. UTI on Admission? No. dw
[2018-04-18 13:42] LABS: ALT/SGPT 28 U/L (12-78); AST/SGOT 11 U/L (15-37); Albumin 3.7 g/dL (3.4-5.0); Alkaline Phosphatase 82 U/L (45-117); BUN Blood Urea Nitrogen 23 mg/dL (7-18); Bicarbonate 30 mmol/L (21-32); Bilirubin Direct 0.1 mg/dL (0-0.2); Bilirubin Total 0.4 mg/dL (0.2-1.0); Glucose Level 150 mg/dL (74-106); Lipase 116 U/L (73-393); Magnesium 2.4 mg/dL (1.8-2.4); NT PRO-BNP 616 pg/mL (<125); Potassium 4.3 mmol/L (3.5-5.1); Protein, Total 8.1 g/dL (6.4-8.2); Sodium Level 139 mmol/L (136-145); Troponin (Emerg Dept Use Only) < 0.02 ng/mL (0.0-0.045)
--- NOTE | 2018-04-18 13:54 | EKG ---
Test Date: 2018-04-18 Test Time: 11:42:59 Hand Binder Cutter: RADHA MEASUREMENT RESULTS: Intervals: Rate: 68 WY: 168 QRSD: 106 QT: 452 QTc: 480 [place]: P: 51 WY: 168 QRS: 16 T: 78 INTERPRETIVE STATEMENTS: Normal sinus rhythm Minimal voltage criteria for LVH, may be normal variant Nonspecific T wave abnormality Prolonged QT Abnormal ECG Compared to ECG 04/03/2018 13:53:47 Left ventricular hypertrophy now present T-wave abnormality now present Prolonged QT interval now present Myocardial infarct finding no longer present Electronically Signed On 04-18-18 13:53:07 CDT by Parvez Coe
[2018-04-18] MEDS ORDERED: FAMOTIDINE 20 MG/2 ML VIAL IV ONE (14:06)
--- NOTE | 2018-04-18 14:17 | RAD REPORT ---
EXAM DESCRIPTION: CT - Chest For Pe Angio - 04/18/2018 2:04 pm CLINICAL HISTORY: Chest pain. CHEST PAIN COMPARISON: Thorax Wo Con dated 09/20/2017; Thorax W/ Con dated 04/19/2016; THORAX W CONTRAST dated TECHNIQUE: CT angiogram of the pulmonary arteries was performed with MIP. All CT scans are performed using dose optimization technique as appropriate and may include automated exposure control or mA/KV adjustment according to patient size. FINDINGS: No evidence of pulmonary thromboembolism. No acute aortic finding demonstrated. Prominent atherosclerotic narrowing of the origin left subclavi an artery is seen. Emphysematous changes with 4 cm cavitary left upper lobe lesion again noted, unchanged. Cavitary lesi on in the left lower lobe appears enlarged to 3.5 cm from the prior study, at which time it measured 2.1 cm. The aguilar/septum of the cavitary lesion is also thicker. The size and number of nodules throu ghout predominately in the left lung has also mildly to moderately progressed. No significant pericardial or pleural fluid. No concerning bony finding. Small hiatal hernia. IMPRESSION: No evidence of pulmonary thromboembolism. Moderate progression in the cavitary lung lesions and nodules in the left lung predominately since comparative study, compatible with progression in MARIO infection.
--- NOTE | 2018-04-18 15:30 | RAD REPORT ---
EXAM DESCRIPTION: [place] Single View04/18/2018 11:55 am CLINICAL HISTORY: Chest pain COMPARISON: March 24, 2018 FINDINGS: Left lung cavities are without significant change. Left reticulonodular infiltrates are a lso unchanged. This likely represents atypical infection. The heart is mildly enlarged. Postsurgical changes involve the chest IMPRESSION: No significant change since the prior exam
[2018-04-18] MEDS ORDERED: ONDANSETRON 4 MG/2 ML VIAL IV PRN (16:47)
[2018-04-18] MEDS: INSULIN -REGULAR HUMAN 50 UNIT/0.5 ML ML SQ SCH ×2 (16:47→21:10)
[2018-04-18] MEDS ORDERED: ACETAMINOPHEN 500 MG TAB PO PRN (16:47)
[2018-04-18] MEDS ORDERED: D50W 25 GM/50 ML SYRINGE IV PRN (16:47)
[2018-04-18] MEDS ORDERED: GLUCAGON 1 MG/VIAL IM PRN (16:47)
[2018-04-18 18:54] VITALS: BMI 30.1
[2018-04-18] MEDS: ALBUTEROL 2.5 MG/3 ML NEB SOL NEB SCH (20:30)
[2018-04-18] MEDS: IPRATROPIUM BROM 0.5MG/2.5ML NEB SCH (20:30)
[2018-04-18] MEDS ORDERED: INFLUENZA VACCINE (for 3y+) 0.5 ML DOSE IMVAC ONE (21:00)
[2018-04-18] MEDS ORDERED: TEMAZEPAM 15 MG CAP PO PRN (23:44)
[2018-04-19 01:19] VITALS: O2SAT 98
[2018-04-19] MEDS: METHYLPREDNISOLONE 125 MG INJ IV SCH ×2 (04:43→04:47)
[2018-04-19] MEDS: ALBUTEROL 2.5 MG/3 ML NEB SOL NEB SCH ×2 (04:47→08:00)
[2018-04-19] MEDS: IPRATROPIUM BROM 0.5MG/2.5ML NEB SCH ×2 (04:47→08:00)
[2018-04-19 05:36] LABS: Absolute Lymphocytes (CBC) 1.8 K/uL (0.7-4.9); Absolute Monocytes 0.5 K/uL (0.1-1.3); Absolute Neutrophil 4.2 K/uL (1.8-8.0); Basophils % 0.8 % (0-1.3); Eosinophils % 2.1 % (0-4.4); Hematocrit 39.8 % (39.6-49.0); Lymphocytes % 27.6 % (15.3-44.8); MCH 29.5 pg (27.0-35.0); MCV 89.4 fL (80-100); Monocytes % 6.9 % (3.3-12.3); RBC Red Blood Cell Count 4.45 M/uL (4.33-5.43)
[2018-04-19 06:00] LABS: Albumin 3.1 g/dL (3.4-5.0); Bilirubin Total 0.2 mg/dL (0.2-1.0); Magnesium 1.9 mg/dL (1.8-2.4); Phosphorus 3.4 mg/dL (2.5-4.9); Potassium 4.3 mmol/L (3.5-5.1); Protein, Total 6.9 g/dL (6.4-8.2)
[2018-04-19] MEDS ORDERED: METHYLPREDNISOLONE 125 MG INJ IV SCH (06:00)
[2018-04-19 08:33] VITALS: BP 113/73; TEMP 97.6
[2018-04-19] MEDS: INSULIN -REGULAR HUMAN 50 UNIT/0.5 ML ML SQ SCH ×2 (08:36→11:37)
[2018-04-19] MEDS ORDERED: AZITHROMYCIN IV 500 MG in NA CHLORIDE 0.9% 250 ML IVPB SCH (09:00)
[2018-04-19 09:16] LABS: Urine Appearance CLEAR; Urine Bilirubin NEGATIVE (NEG); Urine Blood 1+ (NEG); Urine Color YELLOW; Urine Glucose 3+ (NEG); Urine Protein 1+ (NEG); Urine Specific Gravity >=1.030 (1.005-1.030); Urine Urobilinogen 0.2 mg/dL (0.2-1.0)
[2018-04-19 09:17] LABS: Urine Microscopic Reflex ORDER UMIC
[2018-04-19 09:27] LABS: Urine Bacteria NONE SEEN /HPF (NONE SEEN)
[2018-04-19 09:28] LABS: Urine Amorphous Sediment 1+ /HPF (NONE SEEN); Urine Culture Reflex Order NOT NEEDED
--- NOTE | 2018-04-19 09:38 | P.HP ---
Certification for Inpatient Patient admitted to: Observation With expected LOS: <2 Midnights Patient will require the following post-hospital care: None Practitioner: I am a practitioner with admitting privileges, knowledge of patient current condition, hospital course, and medical plan of care. Services: Services provided to patient in accordance with Admission requirements found in Title 42 Section 412.3 of the Code of Federal Regulations Patient History Date of Service: 04/18/18 Reason for admission: Hemoptysis, MARIO, COPD History of Present Illness: Patient is a 50-year-old gentleman who came into the hospital with chest pain. Patient states that his pain was mainly in the sternal region. He also had some shortness of breath. Patient's CT scan revealed enlarging cavitary lesions. Patient has a history of MARIO infections. Patient had been on Zithromax but he states that his Zithromax dose has been changed over the last few months. Currently he is taking it every other day. Patient will be admitted to the hospital for further workup. Allergies No Known Drug Allergies Allergy (Verified 02/28/17 13:00) Unknown No Known Allergies Allergy (Uncoded 05/09/17 20:12) Unknown Home Medications: Metoprolol Tartrate [Lopressor*] 25 mg PO BID 04/17/16 Atorvastatin Calcium 40 mg PO BEDTIME 04/03/18 Azithromycin 500 mg PO DAILY 04/03/18 Ethambutol HCl [Myambutol] 1,200 mg PO DAILY 04/03/18 Prasugrel HCl 10 mg PO DAILY 04/03/18 Rifampin [Rifadin] 600 mg PO DAILY 04/03/18 Fluticasone/Vilanterol [Breo Ellipta 100-25 Mcg INH] 1 puff IN DAILY 04/18/18 Gabapentin 300 mg PO TID 04/18/18 Insulin -Regular Human [Novolin -R*] 20 - 30 unit SQ BID 04/18/18 - Past Medical/Surgical History Has patient received pneumonia vaccine in the past: Yes Diabetic: Yes -: DM Type 2 -: COPD -: Mycobacterium Avium -: CHF -: Pneumonia -: HTN -: CP -: left carotid endarterectomy -: CABG x 3 -: right carotid stenting - Family History Mother Medical History: Lung disease, Cancer - Social History Smoking Status: Never smoker Alcohol use: No CD- Drugs: No Caffeine use: Yes Place of Residence: Home Review of Systems 10-point ROS is otherwise unremarkable Physical Examination - Vital Signs Temperature: 97.6 F Blood Pressure: 113/73 Pulse: 94 Respirations: 18 Pulse Ox (%): 95 - Physical Exam General: Alert, In no apparent distress, Oriented x3 HEENT: Atraumatic, PERRLA, Mucous membr. moist/pink, EOMI, Sclerae nonicteric Neck: Supple, 2+ carotid pulse no bruit, No LAD, Without JVD or thyroid abnormality Respiratory: Expiratory wheezes Cardiovascular: Regular rate/rhythm, Normal S1 S2, No murmurs Gastrointestinal: Normal bowel sounds, Soft and benign, Non-distended, No tenderness Musculoskeletal: No clubbing, No swelling, No tenderness Integumentary: No rashes Neurological: Normal gait, Normal speech, Normal strength at 5/5 x4 extr, Normal tone, Sensation intact, Cranial nerves 3-12 intact, Normal affect Lymphatics: No axilla or inguinal lymphadenopathy - Studies Laboratory Data (last 24 hrs) 04/18/18 12:45: Sodium 139, Potassium 4.3, BUN 23 H, Creatinine 1.10, Glucose 150 H, Magnesium 2.4, Total Bilirubin 0.4, AST 11 L, ALT 28, Alkaline Phosphatase 82, Lipase 116 04/18/18 12:00: PT 11.0, INR 0.93 04/18/18 12:00: WBC 6.7, Hgb 14.1, Hct 42.9, Plt Count 238 Assessment & Plan - Problems (Diagnosis) (1) Hemoptysis Onset Date: 04/19/18 Current Visit: Yes Status: Acute (2) Atypical mycobacterium infection Current Visit: No Status: Acute (3) Chest pain Onset Date: 08/06/15 Current Visit: No Status: Acute (4) Systolic CHF with reduced left ventricular function, NYHA class 3 Onset Date: 04/19/16 Current Visit: No Status: Acute (5) COPD (chronic obstructive pulmonary disease) Onset Date: 04/04/18 Current Visit: No Status: Chronic Qualifiers: COPD type: chronic bronchitis Chronic bronchitis type: mucopurulent Qualified Code(s): J41.1 - Mucopurulent chronic bronchitis (6) COPD exacerbation Onset Date: 04/28/15 Current Visit: No Status: Chronic - Plan 1. Continue with IV antibiotics 2. Awaiting culture results 3. Repeat chest x-ray 4. Continue with pain control 5. Pulmonary consultation 6. Continue with nebs as needed 7. O2 per protocol 8. Continue with gentle hydration 9. Repeat labs including CBC and renal function in a.m. 10. GI and DVT prophylaxis Discharge Plan: Home Plan to discharge in: Greater than 2 days - Advance Directives Does patient have a Living Will: No Does patient have a Durable POA for Healthcare: No - Code Status/Comfort Care Code Status Assessed: Yes Code Status: Full Code Critical Care: No Time Spent Managing PTS Care (In Minutes): 50
[2018-04-19] MEDS ORDERED: METHYLPREDNISOLONE 125 MG INJ IV ONE (11:00)
--- NOTE | 2018-04-19 12:07 | P.CNS ---
Date of Consult: 04/19/18 Reason for Consult: Hemoptysis Chief Complaint: Hemoptysis, MARIO, COPD History of Present Illness: Patient is 52 years of age well known to me he has a history of mycobacterium avium in addition to congestive heart failure and COPD admitted with sudden onset of hemoptysis started yesterday a the last 1 he had was at 3 o'clock in the morning on April 18 bright-red blood no prior history of hemoptysis patient has being on MARIO treatment he was taking it every other day was later turned over to once a day CT scan shows progression of his disease eyes any fever chills he rides his bike 6 miles a day patient's congestive heart failure has improved denies any edema swelling the chest congestion Allergies No Known Drug Allergies Allergy (Verified 02/28/17 13:00) Unknown No Known Allergies Allergy (Uncoded 05/09/17 20:12) Unknown Home Medications: Metoprolol Tartrate [Lopressor*] 25 mg PO BID 04/17/16 Atorvastatin Calcium 40 mg PO BEDTIME 04/03/18 Azithromycin 500 mg PO DAILY 04/03/18 Ethambutol HCl [Myambutol] 1,200 mg PO DAILY 04/03/18 Prasugrel HCl 10 mg PO DAILY 04/03/18 Rifampin [Rifadin] 600 mg PO DAILY 04/03/18 Fluticasone/Vilanterol [Breo Ellipta 100-25 Mcg INH] 1 puff IN DAILY 04/18/18 Gabapentin 300 mg PO TID 04/18/18 Insulin -Regular Human [Novolin -R*] 20 - 30 unit SQ BID 04/18/18 - Past Medical/Surgical History Diabetic: Yes -: DM Type 2 -: COPD -: Mycobacterium Avium -: CHF -: Pneumonia -: HTN -: CP -: left carotid endarterectomy -: CABG x 3 -: right carotid stenting - Family History Mother Medical History: Lung disease, Cancer - Social History Smoking Status: Current some day smoker Alcohol use: No CD- Drugs: No Caffeine use: Yes Place of Residence: Home Review of Systems 10-point ROS is otherwise unremarkable Physical Examination Temp Pulse Resp BP Pulse Ox 97.6 F 94 H 18 113/73 95 04/19/18 09:57 04/19/18 09:57 04/19/18 09:57 04/19/18 09:57 04/19/18 09:57 General: Alert HEENT: Atraumatic Neck: Supple Respiratory: Clear to auscultation bilaterally Cardiovascular: No edema Gastrointestinal: Normal bowel sounds, Non-distended Laboratory Data (last 24 hrs) 04/18/18 12:45: Sodium 139, Potassium 4.3, BUN 23 H, Creatinine 1.10, Glucose 150 H, Magnesium 2.4, Total Bilirubin 0.4, AST 11 L, ALT 28, Alkaline Phosphatase 82, Lipase 116 04/18/18 12:00: PT 11.0, INR 0.93 04/18/18 12:00: WBC 6.7, Hgb 14.1, Hct 42.9, Plt Count 238 - Problems (1) Hemoptysis Onset Date: 04/19/18 Current Visit: Yes Status: Acute Plan: Patient is 52 years of age admitted with hemoptysis he has MA EFRAIN and is currently on treatment today he was later switched to daily therapy instead of every other day in the past 2 weeks otherwise he denies any other constitutional symptoms is congestive heart failure is improved he rides his bike 6 miles a day and no further hemoptysis since 3 o'clock on April 18 vital signs are all stable his blood count is also stable patient can be discharged home to continue with daily therapy of order some more sputums depending up on the results he may need another bronchoscopy follow up in my office in a week
--- NOTE | 2018-04-19 12:26 | P.SSS ---
Patient History Date of Service: 04/19/18 Reason for admission: Hemoptysis, MARIO, COPD History of Present Illness: Patient is a 50-year-old gentleman who came into the hospital with chest pain. Patient states that his pain was mainly in the sternal region. He also had some shortness of breath. Patient's CT scan revealed enlarging cavitary lesions. Patient has a history of MARIO infections. Patient had been on Zithromax but he states that his Zithromax dose has been changed over the last few months. Currently he is taking it every other day. Patient will be admitted to the hospital for further workup Allergies No Known Drug Allergies Allergy (Verified 02/28/17 13:00) Unknown No Known Allergies Allergy (Uncoded 05/09/17 20:12) Unknown Home Medications: RX: Metoprolol Tartrate [Lopressor*] 25 mg PO BID 04/17/16 RX: Atorvastatin Calcium 40 mg PO BEDTIME 04/03/18 RX: Azithromycin 500 mg PO DAILY 04/03/18 RX: Ethambutol HCl [Myambutol] 1,200 mg PO DAILY 04/03/18 RX: Prasugrel HCl 10 mg PO DAILY 04/03/18 RX: Rifampin [Rifadin] 600 mg PO DAILY 04/03/18 RX: Fluticasone/Vilanterol [Breo Ellipta 100-25 Mcg INH] 1 puff IN DAILY RX: Gabapentin 300 mg PO TID 04/18/18 RX: Insulin -Regular Human [Novolin -R*] 20 - 30 unit SQ BID 04/18/18 - Past Medical/Surgical History Has patient received pneumonia vaccine in the past: Yes Diabetic: Yes -: DM Type 2 -: COPD -: Mycobacterium Avium -: CHF -: Pneumonia -: HTN -: CP -: left carotid endarterectomy -: CABG x 3 -: right carotid stenting - Family History Mother -: Lung disease, Cancer - Social History Smoking Status: Never smoker Alcohol use: No CD- Drugs: No Caffeine use: Yes Place of Residence: Home Review of Systems As noted Physical Examination - Vital Signs Temperature: 97.6 F Blood Pressure: 113/73 Pulse: 94 Respirations: 18 Pulse Ox (%): 95 - Physical Exam General: Alert, In no apparent distress HEENT: Atraumatic, PERRLA, Mucous membr. moist/pink, EOMI, Sclerae nonicteric Neck: Supple, 2+ carotid pulse no bruit, No LAD, Without JVD or thyroid abnormality Respiratory: Clear to auscultation bilaterally, Normal air movement Cardiovascular: Regular rate/rhythm, Normal S1 S2 Gastrointestinal: Normal bowel sounds, No tenderness Musculoskeletal: No tenderness Integumentary: No rashes Neurological: Normal gait, Normal speech, Normal strength at 5/5 x4 extr, Normal tone, Normal affect - Studies Laboratory Data (last 24 hrs) 04/18/18 12:45: Sodium 139, Potassium 4.3, BUN 23 H, Creatinine 1.10, Glucose 150 H, Magnesium 2.4, Total Bilirubin 0.4, AST 11 L, ALT 28, Alkaline Phosphatase 82, Lipase 116 04/18/18 12:00: PT 11.0, INR 0.93 04/18/18 12:00: WBC 6.7, Hgb 14.1, Hct 42.9, Plt Count 238 Treatment Summary: Patient was admitted for observation overnight for his hemoptysis. He did not have any more episodes of hemoptysis. No planned intervention by pulmonology. At the time of discharge, he was alert oriented x3 in no acute distress and tolerating oral diet without any complaints. He will be discharged home on the same medications, with instructions to follow up with pulmonology in 1 week. - Disposition Disposition: ROUTINE DISCHARGE Condition: GOOD Consultations: Pulmonology, Dr. Kidd Patient Discharge Instructions: Please follow up with Dr. Kidd in 1 week Diet: AHA Activity: Ad giorgi Time Spent Managing Pts Care (In Minutes): 35
--- NOTE | 2018-04-19 12:45 | ECHO ---
HEIGHT: 5 ft 10 in WEIGHT: 210 lb 0 oz DATE OF STUDY: 04/19/[address]: Bienvenido Rubio MD 2-DIMENSIONAL: YES M.MODE: YES DOPPLER: YES COLOR FLOW: YES TDS: NO PORTABLE: NO DEFINITY: NO BUBBLE STUDY: NO DIAGNOSIS: CONGESTIVE HEART FAILURE CARDIAC HISTORY: CATHERIZATION: YES SURGERY: YES PROSTHETIC VALVE: NO PACEMAKER: NO MEASUREMENTS (cm) DIASTOLIC (NORMALS) SYSTOLIC (NORMALS) IVSd 1.0 (0.6-1.2) LA Diam 5.0 (1.9-4.0) LVEF 35-39% LVIDd 6.2 (3.5-5.7) LVIDs 4.9 (2.0-3.5) %FS 21% LVPWd 1.1 (0.6-1.2) Ao Diam 3.3 (2.0-3.7) 2 DIMENSIONAL ASSESSMENT: RIGHT ATRIUM: DILATED LEFT ATRIUM: DILATED RIGHT VENTRICLE: NORMAL LEFT VENTRICLE: DILATED TRICUSPID VALVE: NORMAL MITRAL VALVE: NORMAL PULMONIC VALVE: NORMAL AORTIC VALVE: NORMAL PERICARDIAL EFFUSION: NONE AORTIC ROOT: NORMAL LEFT VENTRICULAR WALL MOTION: GLOBAL HYPOKINESIS. DOPPLER/COLOR FLOW: MILD MITRAL REGURGITATION. COMMENTS: DEPRESSED LEFT VENTRICULAR EJECTION FRACTION. DILATED RIGHT ATRIUM. DILATED LEFT ATRIUM AND LEFT VENTRICLE. MILD MITRAL REGURGITATION. TECHNOLOGIST: Aisha DOUGHERTY
== END 2018-04-19 13:00 | disposition home or self-care (01) ==
LOC: ER 10:40 → ERHOLD 13:20 → 2ND 14:58
PROVIDERS: ADMIT Family Medicine; ATTEND Hospitalist
DX: R04.2 Hemoptysis (principal); E11.9 Type 2 diabetes mellitus without complications; A31.0 Pulmonary mycobacterial infection; I11.0 Hypertensive heart disease with heart failure; I50.22 Chronic systolic (congestive) heart failure; J44.9 Chronic obstructive pulmonary disease, unspecified; Z95.1 Presence of aortocoronary bypass graft
CPT/HCPCS: 36415; 71045; 71275; 80048; 80053; 80076; 82962 ×3; 83690; 83735 ×2; 83880; 84100; 84484; 85025 ×2; 85610; 87015; 87040 ×2; 87070; 87116; 87205; 87206; 93005; 93306; 94640; 94760 ×2; 96374; 96375; 99285; G0378 ×2; J0456 ×2; J0696; J2930 ×2; J7030; Q9967; 81003; 81015

== ENCOUNTER 2019-03-24 11:39 | Emergency (ER) | payer OTHER ==
--- NOTE | 2019-03-24 12:08 | ER ---
Nurse's Notes [facility] Name: Los Griggs Jr Age: 53 yrs Sex: Male : 1965 Arrival Date: 03/24/2019 Time: 11:42 Bed 23 Private MD: Diagnosis: Dental caries;Buccal Space cellulitis Presentation: 03/24 11:49 Presenting complaint: Patient states: "I thought I had a sinus infection, its making aj1 the side of my face swell up. I went to Urgent Care and he said that he thinks its a tooth causing my gum to swell. He said to come over here" Denies fever. Transition of care: patient was not received from another setting of care. Onset of symptoms was March 24, 2019. Risk Assessment: Do you want to hurt yourself or someone else? Patient reports no desire to harm self or others. Initial Sepsis Screen: Does the patient meet any 2 criteria? No. Patient's initial sepsis screen is negative. Does the patient have a suspected source of infection? No. Patient's initial sepsis screen is negative. Care prior to arrival: None. 11:49 Method Of Arrival: Ambulatory aj 11:49 Acuity: JAIMEE 4 aj1 Triage Assessment: 11:51 Headache History: Denies prior headaches. General: Appears in no apparent distress. aj1 comfortable, Behavior is calm, cooperative, appropriate for age. Pain: Complains of pain in left cheek Pain does not radiate. Pain currently is 7 out of 10 on a pain scale. Pain began 3 days ago Also complains of no other associated symptoms. Neuro: Level of Consciousness is awake, alert, obeys commands. Cardiovascular: Patient's skin is warm and dry. Respiratory: Airway is patent Respiratory effort is even, unlabored, Respiratory pattern is regular, symmetrical. Historical: - Allergies: 11:51 No Known Allergies; aj1 - Home Meds: 11:51 Anoro Ellipta 62.5-25 mcg/actuation inhalation dsdv 1 puff once daily [Active]; aspirin aj1 81 mg Oral TbEC 1 tab once daily [Active]; atorvastatin 40 mg Oral tab 1 tab once daily [Active]; azithromycin 500 mg Oral tab 1 tab twice daily [Active]; ethambutol 400 mg Oral tab three times daily [Active]; gabapentin 300 mg Oral cap [Active]; metoprolol tartrate 25 mg Oral tab 1 tab 2 times per day [Active]; rifampin 300 mg Oral cap 1 caps 2 times per day [Active]; Tresiba FlexTouch U-100 subcutaneous [Active]; - PMHx: 11:51 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 - Social history:: Smoking status: Patient/guardian denies using tobacco. - Ebola Screening: : Patient denies travel to an Ebola-affected area in the 21 days before illness onset. - Family history:: not pertinent. - Hospitalizations: : No recent hospitalization is reported. Screenin:02 Abuse screen: Denies threats or abuse. Denies injuries from another. Nutritional mg2 screening: No deficits noted. Tuberculosis screening: No symptoms or risk factors identified. Fall Risk None identified. Assessment: 12:17 General: Appears in no apparent distress. comfortable, Behavior is calm, cooperative. mg2 Pain: Complains of pain in face and left cheek Pain does not radiate. Pain currently is 5 out of 10 on a pain scale. Quality of pain is described as aching, Pain began gradually, Is intermittent. Neuro: Level of Consciousness is awake, alert, obeys commands, Oriented to person, place, time, situation. Cardiovascular: Capillary refill < 3 seconds Patient's skin is warm and dry. Respiratory: Airway is patent Respiratory effort is even, unlabored, Respiratory pattern is regular, symmetrical. GI: No signs and/or symptoms were reported involving the gastrointestinal system. : No signs and/or symptoms were reported regarding the genitourinary system. EENT: buccal mucosa cellulitis. Derm: Skin is intact, is healthy with good turgor, Skin is pink, warm \\T\\ dry. normal. Musculoskeletal: Circulation, motion, and sensation intact. Capillary refill < 3 seconds. Vital Signs: 11:51 BP 133 / 74; Pulse 58; Resp 18; Temp 97.5; Pulse Ox 100% on R/A; Weight 102.51 kg (R); aj1 Height 5 ft. 10 in. (177.80 cm) (R); 11:51 Body Mass Index 32.43 (102.51 kg, 177.80 cm) aj1 ED Course: 11:42 Patient arrived in ED. as 11:50 Triage completed. aj1 11:51 Arm band placed on Patient placed in an exam room. aj1 11:53 Jeffery Agarwal MD is Attending Physician. rn 11:56 Yao Bucio, RN is Primary Nurse. mg2 12:02 No provider procedures requiring assistance completed. Patient did not have IV access mg2 during this emergency room visit. 12:19 Patient has correct armband on for positive identification. mg2 Administered Medications: No medications were administered Outcome: 12:08 Discharge ordered by . rn 12:19 Discharged to home ambulatory. mg2 12:19 Condition: stable 12:19 Discharge instructions given to patient, Instructed on discharge instructions, follow up and referral plans. medication usage, Demonstrated understanding of instructions, follow-up care, medications, Prescriptions given X 2. 12:20 Patient left the ED. mg2 Signatures: Loren Phillips RN RN aj1 Kayy Roper as Jeffery Agarwal MD MD rn Gardose, Michele, RN RN mg2
--- NOTE | 2019-03-24 12:08 | EDPHYS ---
Physician Documentation [facility] Name: Los Griggs Jr Age: 53 yrs Sex: Male : 1965 Arrival Date: 03/24/2019 Time: 11:42 Bed 23 Private MD: ED Physician Jeffery Agarwal HPI: 03/24 12:02 This 53 yrs old Male presents to ER via Ambulatory with complaints of Sinus rn Pain. 12:02 The patient presents with pain, swelling. The problem is located in the left cheek. rn Onset: The symptoms/episode began/occurred 2 day(s) ago. Duration: The symptoms are continuous. Modifying factors: The symptoms are alleviated by nothing, the symptoms are aggravated by nothing. Severity of symptoms: At their worst the symptoms were mild, in the emergency department the symptoms are unchanged. The patient has experienced similar episodes in the past. Reports seen at urgent care, told had tooth infection but didn't have $300. Reports bad teeth and dentist wont pull them. No fever. + mild facial swelling. . Historical: - Allergies: 11:51 No Known Allergies; aj1 - Home Meds: 11:51 Anoro Ellipta 62.5-25 mcg/actuation inhalation dsdv 1 puff once daily [Active]; aspirin aj1 81 mg Oral TbEC 1 tab once daily [Active]; atorvastatin 40 mg Oral tab 1 tab once daily [Active]; azithromycin 500 mg Oral tab 1 tab twice daily [Active]; ethambutol 400 mg Oral tab three times daily [Active]; gabapentin 300 mg Oral cap [Active]; metoprolol tartrate 25 mg Oral tab 1 tab 2 times per day [Active]; rifampin 300 mg Oral cap 1 caps 2 times per day [Active]; Tresiba FlexTouch U-100 subcutaneous [Active]; - PMHx: 11:51 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 - Social history:: Smoking status: Patient/guardian denies using tobacco. - Ebola Screening: : Patient denies travel to an Ebola-affected area in the 21 days before illness onset. - Family history:: not pertinent. - Hospitalizations: : No recent hospitalization is reported. ROS: 12:02 Constitutional: Negative for fever, chills, and weight loss, Eyes: Negative for injury, rn pain, redness, and discharge, ENT: + sinus and cheek pain Neck: Negative for injury, pain, and swelling, Cardiovascular: Negative for chest pain, palpitations, and edema, Respiratory: Negative for shortness of breath, cough, wheezing, and pleuritic chest pain, Abdomen/GI: Negative for abdominal pain, nausea, vomiting, diarrhea, and constipation, MS/Extremity: Negative for injury and deformity, Skin: Negative for injury, rash, and discoloration, Neuro: Negative for headache, weakness, numbness, tingling, and seizure. Exam: 12:02 Constitutional: This is a well developed, well nourished patient who is awake, alert, rn and in no acute distress. Head/Face: Normocephalic, atraumatic. Eyes: Pupils equal round and reactive to light, extra-ocular motions intact. Lids and lashes normal. Conjunctiva and sclera are non-icteric and not injected. Cornea within normal limits. Periorbital areas with no swelling, redness, or edema. ENT: Poor general dentition, + left cheek swelling without fluctuance. No abscess or focal drainage. Neck: Trachea midline, no thyromegaly or masses palpated, and no cervical lymphadenopathy. Supple, full range of motion without nuchal rigidity, or vertebral point tenderness. No Meningismus. Vital Signs: 11:51 BP 133 / 74; Pulse 58; Resp 18; Temp 97.5; Pulse Ox 100% on R/A; Weight 102.51 kg (R); aj1 Height 5 ft. 10 in. (177.80 cm) (R); 11:51 Body Mass Index 32.43 (102.51 kg, 177.80 cm) aj1 MDM: 11:53 Patient medically screened. rn 12:02 Differential diagnosis: dental caries, dental abscess, buccal space cellulitis. Data rn reviewed: vital signs, nurses notes, and as a result, I will discharge patient. Counseling: I had a detailed discussion with the patient and/or guardian regarding: the historical points, exam findings, and any diagnostic results supporting the discharge/admit diagnosis, the need for outpatient follow up, to return to the emergency department if symptoms worsen or persist or if there are any questions or concerns that arise at home. Special discussion: I discussed with the patient/guardian in detail that at this point there is no indication for admission to the hospital. It is understood, however, that if the symptoms persist or worsen the patient needs to return immediately for re-evaluation. Administered Medications: No medications were administered Disposition: 03/24/19 12:08 Discharged to Home. Impression: Dental caries, Buccal Space cellulitis. - Condition is Stable. - Discharge Instructions: Cellulitis, Adult, Dental Pain. - Prescriptions for Clindamycin HCl 300 mg Oral Capsule - take 1 capsule by ORAL route every 6 hours for 10 days; 40 capsule. Tylenol- Codeine #3 300-30 mg Oral Tablet - take 1 tablet by ORAL route every 6 hours As needed; 15 tablet. - Medication Reconciliation Form, Thank You Letter, Antibiotic Education, Prescription Opioid Use form. - Follow up: Private Physician; When: As needed; Reason: Recheck today's complaints, Re-evaluation by your physician. - Problem is new. - Symptoms have improved. Signatures: Loren Phillips RN RN aj1 Jeffery Agarwal MD MD rn GardYao olivera RN RN mg2 Corrections: (The following items were deleted from the chart) 12:08 12:08 03/24/2019 12:08 Discharged to Home. Impression: Dental caries. Condition is rn Stable. Forms are Medication Reconciliation Form, Thank You Letter, Antibiotic Education, Prescription Opioid Use. Follow up: Private Physician; When: As needed; Reason: Recheck today's complaints, Re-evaluation by your physician. Problem is new. Symptoms have improved. rn 12:20 12:08 03/24/2019 12:08 Discharged to Home. Impression: Dental caries; Buccal Space mg2 cellulitis. Condition is Stable. Forms are Medication Reconciliation Form, Thank You Letter, Antibiotic Education, Prescription Opioid Use. Follow up: Private Physician; When: As needed; Reason: Recheck today's complaints, Re-evaluation by your physician. Problem is new. Symptoms have improved. rn
[2019-03-24 12:46] VITALS: BP 133/74; TEMP 97.5; O2SAT 100
== END 2019-03-24 12:20 | disposition home or self-care (01) ==
LOC: ER 11:39
DX: K02.9 Dental caries, unspecified (principal); K12.2 Cellulitis and abscess of mouth; E11.9 Type 2 diabetes mellitus without complications; I10 Essential (primary) hypertension; J44.9 Chronic obstructive pulmonary disease, unspecified; I50.9 Heart failure, unspecified; I25.2 Old myocardial infarction
CPT/HCPCS: 99282

== ENCOUNTER 2019-08-19 17:05 | Emergency (ER) | payer OTHER ==
--- OUTSIDE RECORDS SUMMARY | 2019-08-19 17:09 | XMS REPORT ---
:1965 [facility] Address [address] [place] [address] Care Team Providers Name Role Phone DENICE YANEZ Unavailable Unavailable BRAULIO HURLEY Unavailable Unavailable Problems [...] WEAK ADP RESULT(BEAKER) (test 7 % 60-91 fjzo=5856) PLATELET FUNCTION SCREEN INTERP 0-39% indicates marked platelet (BEAKER) (test uyjr=2489) dysfunction [id number]-7132 (BEAKER) (test Jannette Bryant MD (electronic theg=8703) signature) PLATELET COUNT AGG (BEAKER) (test 198 K/CU MM 150-450 edwr=1796) POCT-GLUCOSE [id number] 09:13:00 Test Item Value Reference Range Comments POC-GLUCOSE METER (BEAKER) 368 mg/dL 70-[address] [facility] [address] [place] [address] (test cefn=1191) [facility] [address] BASIC METABOLIC [id number] 04:10:00 Test Item Value Reference Range Comments SODIUM (BEAKER) (test 136 meq/L 136-145 lpua=040) POTASSIUM (BEAKER) (test 4.2 meq/L 3.5-5.1 nipf=478) CHLORIDE (BEAKER) (test 104 meq/L 98-107 lypm=135) CO2 (BEAKER) (test 26 meq/L 22-29 adwb=533) BLOOD UREA NITROGEN 17 mg/dL 7-21 (BEAKER) (test agaw=223) CREATININE (BEAKER) (test 0.99 mg/dL 0.57-1.25 zlbb=050) GLUCOSE RANDOM (BEAKER) 320 mg/dL 70-105 (test ehrg=199) CALCIUM (BEAKER) (test 8.9 mg/dL 8.4-10.2 lxam=254) EGFR (BEAKER) (test 79 mL/min/1.73 sq m ESTIMATED GFR IS NOT zphz=9706) ACCURATE CREATININE CLEARANCE IN PREDICTING GLOMERULAR FILTRATION RATE. ESTIMATED GFR IS NOT APPLICABLE FOR DIALYSIS PATIENTS. CBC (HEMOGRAM ONLY)2017-12-07 03:49:00 Test Item Value Reference Range Comments WHITE BLOOD CELL COUNT (BEAKER) (test ldaj=237) 7.2 K/ L 3.5-10.5 RED BLOOD CELL COUNT (BEAKER) (test gfbn=068) 4.27 M/ L 4.63-6.08 HEMOGLOBIN (BEAKER) (test deqe=302) 12.3 GM/DL 13.7-17.5 HEMATOCRIT (BEAKER) (test jwnl=525) 38.3 % 40.1-51.0 MEAN CORPUSCULAR VOLUME (BEAKER) (test ltbm=888) 89.7 fL 79.0-92.2 MEAN CORPUSCULAR HEMOGLOBIN (BEAKER) (test 28.8 pg 25.7-32.2 dwwf=678) MEAN CORPUSCULAR HEMOGLOBIN CONC (BEAKER) (test 32.1 GM/DL 32.3-36.5 zxem=227) RED CELL DISTRIBUTION WIDTH (BEAKER) (test 14.6 % 11.6-14.4 dffh=740) PLATELET COUNT (BEAKER) (test jmyq=499) 194 K/CU MM 150-450 MEAN PLATELET VOLUME (BEAKER) (test hvdb=623) 11.4 fL 9.4-12.4 NUCLEATED RED BLOOD CELLS (BEAKER) (test 0 /100 WBC 0-0 thow=564) POCT-GLUCOSE [id number] 22:59:00 Test Item Value Reference Range Comments POC-GLUCOSE METER (BEAKER) 281 mg/dL 70-110 TESTED AT [address] (test dcae=8565) [facility] [address] POCT-GLUCOSE [id number] 17:19:00 Test Item Value Reference Range Comments POC-GLUCOSE METER (BEAKER) 398 mg/dL 70-110 TESTED AT [address] (test dnws=7454) [place] [address] [id number] 15:41:00 Test Item Value Reference Range Comments ACTIVATED CLOTTING TIME 131 sec TESTED AT [address] ([facility] (test cbid=436) [place] [address] [id number] 14:07:00 Test Item Value Reference Range Comments ACTIVATED CLOTTING TIME 142 sec TESTED AT [address] ([facility] (test zfdn=179) [place] [address] [id number] 09:52:00 Test Item Value Reference Range Comments ACTIVATED CLOTTING TIME 362 sec TESTED AT [address] ([facility]) (test mwrv=444) [place] [address] POCT-GLUCOSE [id number] 07:42:00 Test Item Value Reference Range Comments POC-GLUCOSE METER ([facility]) 196 mg/dL 70-110 TESTED AT [address] (test dxzp=9487) [place] [address] MR, MRA, BRAIN, [id number] 13:28:00FINAL REPORT MRA head, arch, great vessels, and neck CLINICAL HISTORY: RIGHT CAROTID STENOSIS TECHNIQUE: 2-D and 3-D hfpz-ft-olwjwc and postcontrast MRA of the head, arch, greatvessels, and neck was provided with maximal intensity projection 3-D reconstructions of the arterialvasculature. COMPARISON: None FINDINGS: There is no evidence for a [place] proximal branch vessel occlusion. There [...] cervical vertebral artery. No evidence for a [place] proximal branch vessel occlusion. Signed: Mya Mendoza MDReport Verified Date/Time: 2017 13:28:07 Reading Location: [facility] B1 [id number] Consult Reading Room MR, MRA, NECK, [id number] 13:28:00FINAL REPORT MRA head, arch , great vessels, and neck CLINICAL HISTORY: RIGHT CAROTID STENOSIS TECHNIQUE: 2 -D and 3-D byrn-pl-bngumz and postcontrast MRA of the head, arch, greatvessels, and neck was provided with maximal intensity projection 3-D reconstructions of the arterialvasculature. COMPARISON: None FINDINGS: There is no evidence for a [place] proximal branch vessel occlusion. There [...] cervical vertebral artery. No evidence for a [place] proximal branch vessel occlusion. Signed: Mya Mendoza MDReport Verified Date/Time: 12/01/2017 13:28: 07 Reading Location: [address] Consult Reading Room [id number] 10:49:00 Test Item Value Reference Range Comments POC-CREATININE (BEAKER) 0.9 mg/dL 0.6-1.[address] [facility] 2457 (test lkcm=1983) [facility] [address] POC-EGFR (BEAKER) (test 88 mL/min/1.73M2 spaj=3005) POCT-GLUCOSE [id number] 11:54:00 Test Item Value Reference Range Comments POC-GLUCOSE METER (BEAKER) 297 mg/dL 70-[address] [facility] [address] [facility] (test qngh=7095) [facility] [address] POCT-GLUCOSE [id number] 08:49:00 Test Item Value Reference Range Comments POC-GLUCOSE METER (BEAKER) 250 mg/dL 70-[address] [facility] [address] (test pshl=0679) [place] [address] CBC (HEMOGRAM ONLY)2016-11-08 07:15:00 Test Item Value Reference Range Comments WHITE BLOOD CELL COUNT (BEAKER) (test allj=810) 7.3 K/ L 4.0-10.0 RED BLOOD CELL COUNT (BEAKER) (test xeqf=333) 2.67 M/ L 4.20-5.80 HEMOGLOBIN (BEAKER) (test usjh=993) 8.5 GM/DL 13.0-16.8 HEMATOCRIT (BEAKER) (test pxht=244) 24.8 % 40.0-50.0 MEAN CORPUSCULAR VOLUME (BEAKER) (test mhtg=391) 92.9 fL 82.0-98.0 MEAN CORPUSCULAR HEMOGLOBIN (BEAKER) (test 31.6 pg 27.0-33.0 mhxk=615) MEAN CORPUSCULAR HEMOGLOBIN CONC (BEAKER) (test 34.0 GM/DL 32.0-36.0 wkck=573) RED CELL DISTRIBUTION WIDTH (BEAKER) (test 15.7 % 10.3-14.2 ehtv=548) PLATELET COUNT (BEAKER) (test tjju=775) 274 K/CU MM 150-430 MEAN PLATELET VOLUME (BEAKER) (test zggm=867) 7.3 fL 6.5-10.5 NUCLEATED RED BLOOD CELLS (BEAKER) (test 0 /100 WBC 0-0 jgia=252) [id number] 06:58:00 Test Item Value Reference Range Comments MAGNESIUM (BEAKER) (test ujyo=208) 2.1 mg/dL 1.6-2.6 BASIC METABOLIC [id number] 06:58:00 Test Item Value Reference Range Comments SODIUM (BEAKER) (test 137 meq/L 136-145 zikx=001) POTASSIUM (BEAKER) (test 4.2 meq/L 3.5-5.1 zgzm=236) CHLORIDE (BEAKER) (test 100 meq/L 98-107 btih=749) CO2 (BEAKER) (test 28 meq/L 22-29 squm=000) BLOOD UREA NITROGEN 18 mg/dL 7-21 (BEAKER) (test elkk=193) CREATININE (BEAKER) (test 0.83 mg/dL 0.57-1.25 pokk=136) GLUCOSE RANDOM (BEAKER) 234 mg/dL 70-105 (test yugb=658) CALCIUM (BEAKER) (test 8.4 mg/dL 8.4-10.2 vjjf=984) EGFR (BEAKER) (test 97 mL/min/1.73 sq m ESTIMATED GFR IS NOT hivl=4778) ACCURATE CREATININE CLEARANCE IN PREDICTING GLOMERULAR FILTRATION RATE. ESTIMATED GFR IS NOT APPLICABLE FOR DIALYSIS PATIENTS. POCT-GLUCOSE [id number] 21:04:00 Test Item Value Reference Range Comments POC-GLUCOSE METER (BEAKER) 166 mg/dL 70-110 TESTED AT [address] (test oeqi=0515) [place] [address] POCT-GLUCOSE [id number] 17:37:00 Test Item Value Reference Range Comments POC-GLUCOSE METER (BEAKER) 153 mg/dL 70-110 TESTED AT [address] (test nqwg=4930) [place] [address] POCT-GLUCOSE [id number] 17:04:00 Test Item Value Reference Range Comments POC-GLUCOSE METER (BEAKER) 106 mg/dL 70-110 TESTED AT [address] (test yoen=7167) [place] [address] POCT-GLUCOSE [id number] 15:06:00 Test Item Value Reference Range Comments POC-GLUCOSE METER (BEAKER) 76 mg/dL 70-110 TESTED AT [address] (test iilv=2582) [place] [address] POCT-GLUCOSE [id number] 12:32:00 Test Item Value Reference Range Comments POC-GLUCOSE METER (BEAKER) 156 mg/dL 70-110 TESTED AT [address] (test chkv=9994) [place] [address] POCT-GLUCOSE [id number] 08:10:00 Test Item Value Reference Range Comments POC-GLUCOSE METER (BEAKER) 153 mg/dL 70-110 TESTED AT [address] (test ahoj=8812) [place] [address] URINALYSIS W/ [id number] 07:06:00 Test Item Value Reference Range Comments COLOR (BEAKER) (test spot=708) Light Yellow CLARITY (BEAKER) (test peet=688) Clear SPECIFIC GRAVITY UA (BEAKER) (test mehy=852) 1.005 1.001-1.035 PH UA (BEAKER) (test qivy=706) 5.0 5.0-8.0 PROTEIN UA (BEAKER) (test nujw=537) Negative Negative GLUCOSE UA (BEAKER) (test jzdd=262) Negative Negative KETONES UA (BEAKER) (test hulv=020) Negative Negative BILIRUBIN UA (BEAKER) (test uuwy=777) Negative Negative BLOOD UA (BEAKER) (test qnfo=890) Negative Negative NITRITE UA (BEAKER) (test wbpi=476) Negative Negative LEUKOCYTE ESTERASE UA (BEAKER) (test drzj=451) Small Negative UROBILINOGEN UA (BEAKER) (test dyhg=025) 0.2 mg/dL 0.2-1.0 RBC UA (BEAKER) (test spah=695) < /HPF WBC UA (BEAKER) (test niuu=167) 7 /HPF SQUAMOUS EPITHELIAL (BEAKER) (test dolj=150) 2 /HPF SOURCE(BEAKER) (test hkec=7216) [id number] 04:51:00 Test Item Value Reference Range Comments MAGNESIUM (BEAKER) (test guhs=535) 1.9 mg/dL 1.6-2.6 BASIC METABOLIC [id number] 04:51:00 Test Item Value Reference Range Comments SODIUM (BEAKER) (test 140 meq/L 136-145 wwyn=975) POTASSIUM (BEAKER) (test 4.0 meq/L 3.5-5.1 bwcz=614) CHLORIDE (BEAKER) (test 102 meq/L 98-107 yepm=635) CO2 (BEAKER) (test 31 meq/L 22-29 yuql=592) BLOOD UREA NITROGEN 16 mg/dL 7-21 (BEAKER) (test ktsl=017) CREATININE (BEAKER) (test 0.78 mg/dL 0.57-1.25 bvxv=613) GLUCOSE RANDOM (BEAKER) 136 mg/dL 70-105 (test acrk=572) CALCIUM (BEAKER) (test 8.6 mg/dL 8.4-10.2 rpzj=190) EGFR (BEAKER) (test 105 mL/min/1.73 sq m ESTIMATED GFR IS NOT awja=3995) ACCURATE CREATININE CLEARANCE IN PREDICTING GLOMERULAR FILTRATION RATE. ESTIMATED GFR IS NOT APPLICABLE FOR DIALYSIS PATIENTS. CBC (HEMOGRAM ONLY)2016-11-07 04:41:00 Test Item Value Reference Range Comments WHITE BLOOD CELL COUNT (BEAKER) (test ijja=531) 6.9 K/ L 4.0-10.0 RED BLOOD CELL COUNT (BEAKER) (test rokq=324) 2.64 M/ L 4.20-5.80 HEMOGLOBIN (BEAKER) (test zuuf=612) 8.3 GM/DL 13.0-16.8 HEMATOCRIT (BEAKER) (test pbsl=352) 24.5 % 40.0-50.0 MEAN CORPUSCULAR VOLUME (BEAKER) (test ttbx=758) 92.6 fL 82.0-98.0 MEAN CORPUSCULAR HEMOGLOBIN (BEAKER) (test 31.4 pg 27.0-33.0 sicz=969) MEAN CORPUSCULAR HEMOGLOBIN CONC (BEAKER) (test 33.9 GM/DL 32.0-36.0 zknl=960) RED CELL DISTRIBUTION WIDTH (BEAKER) (test 14.5 % 10.3-14.2 ravg=502) PLATELET COUNT (BEAKER) (test ajrn=529) 236 K/CU MM 150-430 MEAN PLATELET VOLUME (BEAKER) (test uzsw=733) 7.3 fL 6.5-10.5 NUCLEATED RED BLOOD CELLS (BEAKER) (test 0 /100 WBC 0-0 edoz=746) 0.00POCT-GLUCOSE [id number] 21:36:00 Test Item Value Reference Range Comments POC-GLUCOSE METER (BEAKER) 256 mg/dL 70-110 TESTED AT [address] (test awkp=2967) [facility] [address] POCT-GLUCOSE [id number] 18:23:00 Test Item Value Reference Range Comments POC-GLUCOSE METER (BEAKER) 137 mg/dL 70-110 TESTED AT [address] (test rhbv=7609) [facility] [address] POCT-GLUCOSE [id number] 17:09:00 Test Item Value Reference Range Comments POC-GLUCOSE METER (BEAKER) 120 mg/dL 70-110 TESTED AT [address] (test vath=8238) [place] [address] POCT-GLUCOSE [id number] 12:21:00 Test Item Value Reference Range Comments POC-GLUCOSE METER (BEAKER) 129 mg/dL 70-110 TESTED AT [address] (test xjij=0984) [place] [address] CBC (HEMOGRAM ONLY)2016-11-06 08:00:00 Test Item Value Reference Range Comments WHITE BLOOD CELL COUNT (BEAKER) (test ydha=122) 6.2 K/ L 4.0-10.0 RED BLOOD CELL COUNT (BEAKER) (test hckz=934) 2.40 M/ L 4.20-5.80 HEMOGLOBIN (BEAKER) (test dfxy=270) 7.2 GM/DL 13.0-16.8 HEMATOCRIT (BEAKER) (test vqlw=034) 22.6 % 40.0-50.0 MEAN CORPUSCULAR VOLUME (BEAKER) (test suee=783) 94.3 fL 82.0-98.0 MEAN CORPUSCULAR HEMOGLOBIN (BEAKER) (test 30.0 pg 27.0-33.0 zbku=388) MEAN CORPUSCULAR HEMOGLOBIN CONC (BEAKER) (test 31.8 GM/DL 32.0-36.0 ixea=587) RED CELL DISTRIBUTION WIDTH (BEAKER) (test 14.5 % 10.3-14.2 sktl=103) PLATELET COUNT (BEAKER) (test iynw=172) 224 K/CU MM 150-430 MEAN PLATELET VOLUME (BEAKER) (test pvzu=399) 7.4 fL 6.5-10.5 NUCLEATED RED BLOOD CELLS (BEAKER) (test 0 /100 WBC 0-0 ssor=892) 0.00POCT-GLUCOSE [id number] 07:49:00 Test Item Value Reference Range Comments POC-GLUCOSE METER (BEAKER) 241 mg/dL 70-110 TESTED AT [address] (test vqtp=3634) [place] [address] [id number] 06:49:00 Test Item Value Reference Range Comments MAGNESIUM (BEAKER) (test rwvu=973) 2.0 mg/dL 1.6-2.6 BASIC METABOLIC [id number] 06:49:00 Test Item Value Reference Range Comments SODIUM (BEAKER) (test 136 meq/L 136-145 gjtp=501) POTASSIUM (BEAKER) (test 4.2 meq/L 3.5-5.1 ivvc=341) CHLORIDE (BEAKER) (test 102 meq/L 98-107 umom=268) CO2 (BEAKER) (test 26 meq/L 22-29 sdfs=988) BLOOD UREA NITROGEN 15 mg/dL 7-21 (BEAKER) (test rhnb=562) CREATININE (BEAKER) (test 0.76 mg/dL 0.57-1.25 ejmn=451) GLUCOSE RANDOM (BEAKER) 221 mg/dL 70-105 (test qtwh=816) CALCIUM (BEAKER) (test 8.4 mg/dL 8.4-10.2 dhfx=979) EGFR (BEAKER) (test 108 mL/min/1.73 sq m ESTIMATED GFR IS NOT ozjh=6041) ACCURATE CREATININE CLEARANCE IN PREDICTING GLOMERULAR FILTRATION RATE. ESTIMATED GFR IS NOT APPLICABLE FOR DIALYSIS PATIENTS. POCT-GLUCOSE [id number] 16:44:00 Test Item Value Reference Range Comments POC-GLUCOSE METER (BEAKER) 144 mg/dL 70-110 TESTED AT [address] (test bywy=0528) [place] [address] POCT-GLUCOSE [id number] 15:34:00 Test Item Value Reference Range Comments POC-GLUCOSE METER (BEAKER) 70 mg/dL 70-110 TESTED AT [address] (test bgcz=4929) [place] [address] POCT-GLUCOSE [id number] 15:00:00 Test Item Value Reference Range Comments POC-GLUCOSE METER (BEAKER) 49 mg/dL 70-110 TESTED AT [address] (test xcyj=3015) [place] [address] POCT-GLUCOSE [id number] 13:01:00 Test Item Value Reference Range Comments POC-GLUCOSE METER (BEAKER) 202 mg/dL 70-110 TESTED AT [address] (test vsch=2313) [place] [address] POCT-GLUCOSE [id number] 08:35:00 Test Item Value Reference Range Comments POC-GLUCOSE METER (BEAKER) 194 mg/dL 70-110 TESTED AT [address] (test cckl=4319) [place] [address] [id number] 04:08:00 Test Item Value Reference Range Comments MAGNESIUM (BEAKER) (test pdew=443) 1.9 mg/dL 1.6-2.6 BASIC METABOLIC [id number] 04:08:00 Test Item Value Reference Range Comments SODIUM (BEAKER) (test 137 meq/L 136-145 utjc=618) POTASSIUM (BEAKER) (test 3.4 meq/L 3.5-5.1 xhyq=320) CHLORIDE (BEAKER) (test 103 meq/L 98-107 cdca=148) CO2 (BEAKER) (test 26 meq/L 22-29 kquz=297) BLOOD UREA NITROGEN 19 mg/dL 7-21 (BEAKER) (test buod=926) CREATININE (BEAKER) (test 0.71 mg/dL 0.57-1.25 dgaj=941) GLUCOSE RANDOM (BEAKER) 75 mg/dL 70-105 (test ljmr=284) CALCIUM (BEAKER) (test 8.6 mg/dL 8.4-10.2 celz=391) EGFR (BEAKER) (test 117 mL/min/1.73 sq m ESTIMATED GFR IS NOT xspl=5121) ACCURATE CREATININE CLEARANCE IN PREDICTING GLOMERULAR FILTRATION RATE. ESTIMATED GFR IS NOT APPLICABLE FOR DIALYSIS PATIENTS. CBC W/PLT COUNT & AUTO [id number] 04:05:00 Test Item Value Reference Range Comments WHITE BLOOD CELL COUNT (BEAKER) (test rark=681) 6.9 K/ L 4.0-10.0 RED BLOOD CELL COUNT (BEAKER) (test rqxp=980) 2.36 M/ L 4.20-5.80 HEMOGLOBIN (BEAKER) (test wsed=884) 7.8 GM/DL 13.0-16.8 HEMATOCRIT (BEAKER) (test jzlv=143) 21.7 % 40.0-50.0 MEAN CORPUSCULAR VOLUME (BEAKER) (test hlrr=043) 91.6 fL 82.0-98.0 MEAN CORPUSCULAR HEMOGLOBIN (BEAKER) (test 32.9 pg 27.0-33.0 irsr=232) MEAN CORPUSCULAR HEMOGLOBIN CONC (BEAKER) (test 35.9 GM/DL 32.0-36.0 ieqv=689) RED CELL DISTRIBUTION WIDTH (BEAKER) (test 14.7 % 10.3-14.2 glao=747) PLATELET COUNT (BEAKER) (test rjwb=023) 192 K/CU MM 150-430 MEAN PLATELET VOLUME (BEAKER) (test gqma=507) 7.4 fL 6.5-10.5 NUCLEATED RED BLOOD CELLS (BEAKER) (test 0 /100 WBC 0-0 mlpl=581) NEUTROPHILS RELATIVE PERCENT (BEAKER) (test 67 % wayb=559) LYMPHOCYTES RELATIVE PERCENT (BEAKER) (test 23 % rylp=182) MONOCYTES RELATIVE PERCENT (BEAKER) (test 7 % wewm=289) EOSINOPHILS RELATIVE PERCENT (BEAKER) (test 4 % yhoi=415) BASOPHILS RELATIVE PERCENT (BEAKER) (test 1 % iawy=951) NEUTROPHILS ABSOLUTE COUNT (BEAKER) (test 4.61 K/ L 1.80-8.00 xacn=784) LYMPHOCYTES ABSOLUTE COUNT (BEAKER) (test 1.56 K/ L 1.48-4.50 unzu=718) MONOCYTES ABSOLUTE COUNT (BEAKER) (test 0.46 K/ L 0.00-1.30 mksg=051) EOSINOPHILS ABSOLUTE COUNT (BEAKER) (test 0.24 K/ L 0.00-0.50 lvht=239) BASOPHILS ABSOLUTE COUNT (BEAKER) (test 0.04 K/ L 0.00-0.20 sibj=612) 0.00POCT-GLUCOSE [id number] 21:29:00 Test Item Value Reference Range Comments POC-GLUCOSE METER (BEAKER) 140 mg/dL 70-110 TESTED AT [address] (test dbap=0747) [place] [id number] POCT-GLUCOSE [id number] 17:57:00 Test Item Value Reference Range Comments POC-GLUCOSE METER (BEAKER) 237 mg/dL 70-110 TESTED AT [address] (test aqik=8053) [facility] [address] TISSUE [id number] 15:18:00Surgical Pathology Report Case: [id number] Authorizing Provider: Braulio Hurley MD Collected: 11/01/2016 1102 Ordering Location: [facility] Received: 11/01/2016 7746 PERIOPERATIVE SERVICES Pathologist: Ian Wang MD Specimen: Plaque, RCA PLAQUE HEART, CORONARY ARTERY, RIGHT, ATHERECTOMY:CALCIFIC ATHEROSCLEROTIC PLAQUEElectronically signed by Ian Wang MDon 11/04/2016 at 3:18 [id number]; [id number] plaqueThe specimen is received in saline labeled with the patient's information labeled "RCA plaque" and consists of a calcified tubular-shaped segment of tissue measuring 10.5 cm in length x 0.4 cm in diameter. Representatively submitted A1 for decalcification. CG/plPerformedPOCT-GLUCOSE [id number] 12:12:00 Test Item Value Reference Range Comments POC-GLUCOSE METER (BEAKER) 90 mg/dL 70-110 TESTED AT [address] (test adri=1079) [place] [id number] POCT-GLUCOSE [id number] 08:56:00 Test Item Value Reference Range Comments POC-GLUCOSE METER (BEAKER) 215 mg/dL 70-110 TESTED AT [address] (test zoef=7577) [place] [address] [id number] 06:16:00 Test Item Value Reference Range Comments MAGNESIUM (BEAKER) (test ekio=425) 2.1 mg/dL 1.6-2.6 BASIC METABOLIC [id number] 06:16:00 Test Item Value Reference Range Comments SODIUM (BEAKER) (test 136 meq/L 136-145 hbua=403) POTASSIUM (BEAKER) (test 3.6 meq/L 3.5-5.1 yhcc=493) CHLORIDE (BEAKER) (test 102 meq/L 98-107 nmjh=214) CO2 (BEAKER) (test 25 meq/L 22-29 qbft=952) BLOOD UREA NITROGEN 29 mg/dL 7-21 (BEAKER) (test osdx=030) CREATININE (BEAKER) (test 0.89 mg/dL 0.57-1.25 bnlj=364) GLUCOSE RANDOM (BEAKER) 123 mg/dL 70-105 (test fcbj=735) CALCIUM (BEAKER) (test 8.7 mg/dL 8.4-10.2 xuif=051) EGFR (BEAKER) (test 90 mL/min/1.73 sq m ESTIMATED GFR IS NOT ream=0090) ACCURATE CREATININE CLEARANCE IN PREDICTING GLOMERULAR FILTRATION RATE. ESTIMATED GFR IS NOT APPLICABLE FOR DIALYSIS PATIENTS. CBC W/PLT COUNT & AUTO [id number] 05:46:00 Test Item Value Reference Range Comments WHITE BLOOD CELL COUNT (BEAKER) (test ltmu=781) 9.1 K/ L 4.0-10.0 RED BLOOD CELL COUNT (BEAKER) (test vmij=066) 2.59 M/ L 4.20-5.80 HEMOGLOBIN (BEAKER) (test hmnz=342) 8.2 GM/DL 13.0-16.8 HEMATOCRIT (BEAKER) (test dsfq=775) 23.6 % 40.0-50.0 MEAN CORPUSCULAR VOLUME (BEAKER) (test wlcp=970) 91.4 fL 82.0-98.0 MEAN CORPUSCULAR HEMOGLOBIN (BEAKER) (test 31.8 pg 27.0-33.0 nbgd=190) MEAN CORPUSCULAR HEMOGLOBIN CONC (BEAKER) (test 34.7 GM/DL 32.0-36.0 uawj=210) RED CELL DISTRIBUTION WIDTH (BEAKER) (test 14.3 % 10.3-14.2 xoop=979) PLATELET COUNT (BEAKER) (test xaeu=195) 173 K/CU MM 150-430 MEAN PLATELET VOLUME (BEAKER) (test bakr=558) 8.3 fL 6.5-10.5 NUCLEATED RED BLOOD CELLS (BEAKER) (test 0 /100 WBC 0-0 bznb=195) NEUTROPHILS RELATIVE PERCENT (BEAKER) (test 75 % qlcx=639) LYMPHOCYTES RELATIVE PERCENT (BEAKER) (test 15 % pvph=333) MONOCYTES RELATIVE PERCENT (BEAKER) (test 8 % aexz=301) EOSINOPHILS RELATIVE PERCENT (BEAKER) (test 2 % nkxi=739) BASOPHILS RELATIVE PERCENT (BEAKER) (test 0 % hihf=215) NEUTROPHILS ABSOLUTE COUNT (BEAKER) (test 6.79 K/ L 1.80-8.00 ylig=610) LYMPHOCYTES ABSOLUTE COUNT (BEAKER) (test 1.38 K/ L 1.48-4.50 choi=562) MONOCYTES ABSOLUTE COUNT (BEAKER) (test 0.71 K/ L 0.00-1.30 tmsd=763) EOSINOPHILS ABSOLUTE COUNT (BEAKER) (test 0.20 K/ L 0.00-0.50 bska=463) BASOPHILS ABSOLUTE COUNT (BEAKER) (test 0.02 K/ L 0.00-0.20 qqou=024) 0.00POCT-GLUCOSE [id number] 05:03:00 Test Item Value Reference Range Comments POC-GLUCOSE METER (BEAKER) 142 mg/dL 70-110 TESTED AT [address] (test msqh=3908) [facility] [id number] POCT-GLUCOSE [id number] 20:57:00 Test Item Value Reference Range Comments POC-GLUCOSE METER (BEAKER) 256 mg/dL 70-110 TESTED AT [address] (test dgwm=7859) [place] [id number] POCT-GLUCOSE [id number] 18:11:00 Test Item Value Reference Range Comments POC-GLUCOSE METER (BEAKER) 243 mg/dL 70-110 TESTED AT [address] (test tquk=2416) [place] [id number] POCT-GLUCOSE [id number] 11:42:00 Test Item Value Reference Range Comments POC-GLUCOSE METER (BEAKER) 158 mg/dL 70-110 TESTED AT [address] (test speu=7332) [place] [id number] POCT-GLUCOSE [id number] 09:13:00 Test Item Value Reference Range Comments POC-GLUCOSE METER (BEAKER) 163 mg/dL 70-110 TESTED AT [address] (test ljdv=6548) [place] [id number] POCT-GLUCOSE [id number] 09:13:00 Test Item Value Reference Range Comments POC-GLUCOSE METER (BEAKER) 110 mg/dL 70-110 TESTED AT [address] (test qjgk=2501) [place] [id number] POCT-GLUCOSE [id number] 06:04:00 Test Item Value Reference Range Comments POC-GLUCOSE METER (BEAKER) 131 mg/dL 70-110 TESTED AT [address] (test imox=5835) [place] [address] [id number] 04:25:00 Test Item Value Reference Range Comments MAGNESIUM (BEAKER) (test swtv=079) 2.3 mg/dL 1.6-2.6 BASIC METABOLIC [id number] 04:25:00 Test Item Value Reference Range Comments SODIUM (BEAKER) (test 136 meq/L 136-145 fklg=238) POTASSIUM (BEAKER) (test 4.1 meq/L 3.5-5.1 wccc=817) CHLORIDE (BEAKER) (test 105 meq/L 98-107 xawt=828) CO2 (BEAKER) (test 22 meq/L 22-29 afoc=157) BLOOD UREA NITROGEN 27 mg/dL 7-21 (BEAKER) (test hnmb=072) CREATININE (BEAKER) (test 0.87 mg/dL 0.57-1.25 tfse=958) GLUCOSE RANDOM (BEAKER) 155 mg/dL 70-105 (test lsmy=169) CALCIUM (BEAKER) (test 8.4 mg/dL 8.4-10.2 knig=722) EGFR (BEAKER) (test 92 mL/min/1.73 sq m ESTIMATED GFR IS NOT ilin=4335) ACCURATE CREATININE CLEARANCE IN PREDICTING GLOMERULAR FILTRATION RATE. ESTIMATED GFR IS NOT APPLICABLE FOR DIALYSIS PATIENTS. CBC W/PLT COUNT & AUTO [id number] 04:14:00 Test Item Value Reference Range Comments WHITE BLOOD CELL COUNT (BEAKER) (test hkkm=180) 10.9 K/ L 4.0-10.0 RED BLOOD CELL COUNT (BEAKER) (test cmuk=405) 2.69 M/ L 4.20-5.80 HEMOGLOBIN (BEAKER) (test rdte=304) 8.1 GM/DL 13.0-16.8 HEMATOCRIT (BEAKER) (test qzbl=356) 24.9 % 40.0-50.0 MEAN CORPUSCULAR VOLUME (BEAKER) (test rajc=421) 92.7 fL 82.0-98.0 MEAN CORPUSCULAR HEMOGLOBIN (BEAKER) (test 30.0 pg 27.0-33.0 ggac=991) MEAN CORPUSCULAR HEMOGLOBIN CONC (BEAKER) (test 32.3 GM/DL 32.0-36.0 nabi=511) RED CELL DISTRIBUTION WIDTH (BEAKER) (test 13.4 % 10.3-14.2 wbnx=041) PLATELET COUNT (BEAKER) (test wopv=718) 134 K/CU MM 150-430 MEAN PLATELET VOLUME (BEAKER) (test bgyo=076) 8.0 fL 6.5-10.5 NUCLEATED RED BLOOD CELLS (BEAKER) (test 0 /100 WBC 0-0 owod=698) NEUTROPHILS RELATIVE PERCENT (BEAKER) (test 80 % hjcb=627) LYMPHOCYTES RELATIVE PERCENT (BEAKER) (test 12 % hiof=946) MONOCYTES RELATIVE PERCENT (BEAKER) (test 8 % nawc=458) EOSINOPHILS RELATIVE PERCENT (BEAKER) (test 1 % uvlq=499) BASOPHILS RELATIVE PERCENT (BEAKER) (test 0 % xyee=104) NEUTROPHILS ABSOLUTE COUNT (BEAKER) (test 8.64 K/ L 1.80-8.00 uhrq=983) LYMPHOCYTES ABSOLUTE COUNT (BEAKER) (test 1.27 K/ L 1.48-4.50 avme=788) MONOCYTES ABSOLUTE COUNT (BEAKER) (test 0.82 K/ L 0.00-1.30 fwoy=872) EOSINOPHILS ABSOLUTE COUNT (BEAKER) (test 0.11 K/ L 0.00-0.50 zacl=721) BASOPHILS ABSOLUTE COUNT (BEAKER) (test 0.02 K/ L 0.00-0.20 crzq=560) 0.00POCT-GLUCOSE [id number] 03:20:00 Test Item Value Reference Range Comments POC-GLUCOSE METER (BEAKER) 170 mg/dL 70-110 TESTED AT [address] (test toqj=5313) [facility] [address] POCT-GLUCOSE [id number] 01:40:00 Test Item Value Reference Range Comments POC-GLUCOSE METER (BEAKER) 216 mg/dL 70-110 TESTED AT [address] (test anax=9775) [facility] [address] POCT-GLUCOSE [id number] 00:08:00 Test Item Value Reference Range Comments POC-GLUCOSE METER (BEAKER) 227 mg/dL 70-110 TESTED AT [address] (test ydiw=6279) [facility] [address] POCT-GLUCOSE [id number] 22:37:00 Test Item Value Reference Range Comments POC-GLUCOSE METER (BEAKER) 262 mg/dL 70-110 TESTED AT [address] (test qewr=0284) [facility] [address] POCT-GLUCOSE [id number] 20:41:00 Test Item Value Reference Range Comments POC-GLUCOSE METER (BEAKER) 318 mg/dL 70-110 Notified MAHAMED CRISTINA/TESTED AT [facility] (test snpg=9469) [address] [place] [address] POCT-GLUCOSE [id number] 18:55:00 Test Item Value Reference Range Comments POC-GLUCOSE METER (BEAKER) 363 mg/dL 70-110 Notified MAHAMED CRISTINA/TESTED AT [facility] (test arpz=4933) [address] [place] [address] POCT-GLUCOSE [id number] 18:03:00 Test Item Value Reference Range Comments POC-GLUCOSE METER (BEAKER) 408 mg/dL 70-110 Notified MAHAMED CRISTINA/TESTED AT [facility] (test bsez=9786) [address] [place] [address] POCT-GLUCOSE [id number] 16:43:00 Test Item Value Reference Range Comments POC-GLUCOSE METER (BEAKER) 413 mg/dL 70-110 Notified MAHAMED CRISTINA/TESTED AT [facility] (test cmns=3956) [address] [place] [address] POCT-GLUCOSE [id number] 11:39:00 Test Item Value Reference Range Comments POC-GLUCOSE METER (BEAKER) 332 mg/dL 70-110 Notified MAHAMED CRISTINA/TESTED AT [facility] (test kzrp=0259) [address] [place] [address] POCT-GLUCOSE [id number] 09:06:00 Test Item Value Reference Range Comments POC-GLUCOSE METER (BEAKER) 173 mg/dL 70-110 TESTED AT [address] (test bipf=9625) [facility] [address] POCT-GLUCOSE [id number] 07:16:00 Test Item Value Reference Range Comments POC-GLUCOSE METER (BEAKER) 128 mg/dL 70-110 TESTED AT [address] (test tndp=3709) [place] [id number] 05:44:00 Test Item Value Reference Range Comments ACTIVATED CLOTTING TIME 121 sec TESTED AT [place] [address] [address] (BEAKER) (test ajjd=428) [place] [address] [id number] 05:44:00 Test Item Value Reference Range Comments ACTIVATED CLOTTING TIME 611 sec TESTED AT [place] [address] [place] (BEAKER) (test bikq=706) [place] [address] [id number] 05:44:00 Test Item Value Reference Range Comments ACTIVATED CLOTTING TIME 858 sec TESTED AT [place] [address] [place] (BEAKER) (test mhun=540) [place] [address] [id number] 05:44:00 Test Item Value Reference Range Comments ACTIVATED CLOTTING TIME [address] [facility] [address] (BEAKER) (test ugrc=546) [place] [address] CBC W/PLT COUNT & AUTO [id number] 04:59:00 Test Item Value Reference Range Comments WHITE BLOOD CELL COUNT (BEAKER) (test bhoj=062) 8.8 K/ L 4.0-10.0 RED BLOOD CELL COUNT (BEAKER) (test caal=542) 2.91 M/ L 4.20-5.80 HEMOGLOBIN (BEAKER) (test qahp=291) 9.0 GM/DL 13.0-16.8 HEMATOCRIT (BEAKER) (test etry=073) 27.1 % 40.0-50.0 MEAN CORPUSCULAR VOLUME (BEAKER) (test tunz=201) 92.9 fL 82.0-98.0 MEAN CORPUSCULAR HEMOGLOBIN (BEAKER) (test 31.0 pg 27.0-33.0 uhyy=905) MEAN CORPUSCULAR HEMOGLOBIN CONC (BEAKER) (test 33.3 GM/DL 32.0-36.0 sagi=509) RED CELL DISTRIBUTION WIDTH (BEAKER) (test 13.2 % 10.3-14.2 szrw=285) PLATELET COUNT (BEAKER) (test fzgb=341) 134 K/CU MM 150-430 MEAN PLATELET VOLUME (BEAKER) (test hqcf=759) 8.1 fL 6.5-10.5 NUCLEATED RED BLOOD CELLS (BEAKER) (test 0 /100 WBC 0-0 woka=997) NEUTROPHILS RELATIVE PERCENT (BEAKER) (test 80 % pify=728) LYMPHOCYTES RELATIVE PERCENT (BEAKER) (test 13 % fwcs=391) MONOCYTES RELATIVE PERCENT (BEAKER) (test 6 % emsp=787) EOSINOPHILS RELATIVE PERCENT (BEAKER) (test 0 % lyku=383) BASOPHILS RELATIVE PERCENT (BEAKER) (test 0 % habk=465) NEUTROPHILS ABSOLUTE COUNT (BEAKER) (test 7.07 K/ L 1.80-8.00 yzfo=710) LYMPHOCYTES ABSOLUTE COUNT (BEAKER) (test 1.18 K/ L 1.48-4.50 sfyf=914) MONOCYTES ABSOLUTE COUNT (BEAKER) (test 0.51 K/ L 0.00-1.30 zbha=535) EOSINOPHILS ABSOLUTE COUNT (BEAKER) (test 0.04 K/ L 0.00-0.50 blpu=081) BASOPHILS ABSOLUTE COUNT (BEAKER) (test 0.01 K/ L 0.00-0.20 kcdp=918) [id number] 04:59:00 Test Item Value Reference Range Comments MAGNESIUM (BEAKER) (test fjyh=050) 2.0 mg/dL 1.6-2.6 BASIC METABOLIC [id number] 04:59:00 Test Item Value Reference Range Comments SODIUM (BEAKER) (test 142 meq/L 136-145 clhj=173) POTASSIUM (BEAKER) (test 4.6 meq/L 3.5-5.1 vhnt=286) CHLORIDE (BEAKER) (test 112 meq/L 98-107 axub=346) CO2 (BEAKER) (test 23 meq/L 22-29 svwc=158) BLOOD UREA NITROGEN 20 mg/dL 7-21 (BEAKER) (test ymlh=444) CREATININE (BEAKER) (test 0.82 mg/dL 0.57-1.25 bahs=516) GLUCOSE RANDOM (BEAKER) 118 mg/dL 70-105 (test htim=932) CALCIUM (BEAKER) (test 8.3 mg/dL 8.4-10.2 umfh=526) EGFR (BEAKER) (test 99 mL/min/1.73 sq m ESTIMATED GFR IS NOT yfvp=4905) ACCURATE CREATININE CLEARANCE IN PREDICTING GLOMERULAR FILTRATION RATE. ESTIMATED GFR IS NOT APPLICABLE FOR DIALYSIS PATIENTS. POCT-GLUCOSE [id number] 02:19:00 Test Item Value Reference Range Comments POC-GLUCOSE METER (BEAKER) 137 mg/dL 70-110 TESTED AT [address] (test zihz=9219) [place] [id number] POCT-GLUCOSE [id number] 23:33:00 Test Item Value Reference Range Comments POC-GLUCOSE METER (BEAKER) 118 mg/dL 70-110 TESTED AT [address] (test tcro=3835) [place] [address]130 POCT-GLUCOSE [id number] 19:30:00 Test Item Value Reference Range Comments POC-GLUCOSE METER (BEAKER) 109 mg/dL 70-110 TESTED AT [address] (test dxuk=2300) [facility] [address] POCT-GLUCOSE [id number] 18:24:00 Test Item Value Reference Range Comments POC-GLUCOSE METER (BEAKER) 101 mg/dL 70-110 TESTED AT [address] (test obtc=4069) [facility] [address] GLUCOSE-STAT [id number] 16:59:00 Test Item Value Reference Range Comments GLUCOSE RANDOM (BEAKER) (test fkla=593) 108 mg/dL 70-110 HGB/HCT (H&H) - STAT [id number] 16:59:00 Test Item Value Reference Range Comments HEMOGLOBIN (BEAKER) (test lgwg=584) 9.0 g/dL 13.0-16.8 HEMATOCRIT (BEAKER) (test ysft=773) 26.0 % 40.0-50.0 BLOOD GAS, [id number] 16:59:00 Test Item Value Reference Range Comments PH ARTERIAL (BEAKER) (test cwba=286) 7.37 7.35-7.45 PCO2 ARTERIAL (BEAKER) (test zazt=654) 42 mmHg 35-45 PO2 ARTERIAL (BEAKER) (test fsao=345) 101 mmHg 80-90 O2 SATURATION ARTERIAL (BEAKER) (test dvzp=156) 97.5 % 96.0-97.0 HCO3 ARTERIAL (BEAKER) (test cxzu=425) 24 mmol/L 21-29 BASE EXCESS ARTERIAL (BEAKER) (test pehu=791) -1.7 mmol/L -2.0-3.0 PATIENT TEMPERATURE (BEAKER) (test gaeb=1792) 36.9 C FIO2 (BEAKER) (test ebru=1794) 36.0 % POCT-GLUCOSE [id number] 15:37:00 Test Item Value Reference Range Comments POC-GLUCOSE METER (BEAKER) 152 mg/dL 70-110 TESTED AT [address] (test nxig=5141) [facility] [address] [id number] 15:11:00 Test Item Value Reference Range Comments MAGNESIUM (BEAKER) (test lkcf=168) 2.1 mg/dL 1.6-2.6 [id number] 15:10:00 Test Item Value Reference Range Comments POTASSIUM (BEAKER) (test ahto=996) 4.0 meq/L 3.5-5.1 POCT-GLUCOSE [id number] 15:03:00 Test Item Value Reference Range Comments POC-GLUCOSE METER (BEAKER) 180 mg/dL 70-[address] [facility] [address] [facility] (test rpxw=9619) [facility] [address] POCT-GLUCOSE [id number] 13:33:00 Test Item Value Reference Range Comments POC-GLUCOSE METER (BEAKER) 213 mg/dL 70-110 TESTED AT [address] (test atwq=6928) [facility] [address] POCT-GLUCOSE [id number] 13:33:00 Test Item Value Reference Range Comments POC-GLUCOSE METER (BEAKER) 252 mg/dL 70-110 TESTED AT [address] (test otzf=2685) [facility] [address] BASIC METABOLIC [id number] 13:30:00 Test Item Value Reference Range Comments SODIUM (BEAKER) (test 136 meq/L 136-145 dlqd=806) POTASSIUM (BEAKER) (test 4.3 meq/L 3.5-5.1 Specimen slightly fdlp=007) hemolyzed CHLORIDE (BEAKER) (test 109 meq/L 98-107 qwbd=570) CO2 (BEAKER) (test 19 meq/L 22-29 utdq=903) BLOOD UREA NITROGEN 22 mg/dL 7-21 (BEAKER) (test qxsx=674) CREATININE (BEAKER) (test 0.92 mg/dL 0.57-1.25 Specimen slightly sqfh=376) hemolyzed GLUCOSE RANDOM (BEAKER) 250 mg/dL 70-105 (test dkwq=081) CALCIUM (BEAKER) (test 7.8 mg/dL 8.4-10.2 gwfa=089) EGFR (BEAKER) (test 86 mL/min/1.73 sq m ESTIMATED GFR IS NOT grgt=1042) ACCURATE CREATININE CLEARANCE IN PREDICTING GLOMERULAR FILTRATION RATE. ESTIMATED GFR IS NOT APPLICABLE FOR DIALYSIS PATIENTS. LACTIC ACID, ARTERIAL, WHOLE [id number] 13:01:00 Test Item Value Reference Range Comments LACTATE BLOOD ARTERIAL (2) 1.4 mmol/L 0.5-2.2 Specimen slightly hemolyzed (BEAKER) (test mzxo=5444) Effective 10/22/2015: Units/Reference Range ChangeNew: 0.5-2.2 mmol/L Previous: 5 -20 mg/dLBLOOD GAS, [id number] 12:31:00 Test Item Value Reference Range Comments PH ARTERIAL (BEAKER) (test dvyp=098) 7.30 7.35-7.45 PCO2 ARTERIAL (BEAKER) (test upua=888) 44 mmHg 35-45 PO2 ARTERIAL (BEAKER) (test ogms=316) 222 mmHg 80-90 O2 SATURATION ARTERIAL (BEAKER) (test tqvm=367) 99.4 % 96.0-97.0 HCO3 ARTERIAL (BEAKER) (test kxcv=949) 21 mmol/L 21-29 BASE EXCESS ARTERIAL (BEAKER) (test sujw=517) -5.3 mmol/L -2.0-3.0 PATIENT TEMPERATURE (BEAKER) (test gpch=5961) 37.0 C FIO2 (BEAKER) (test crgd=3432) 60.0 % HGB/HCT (H&H) - STAT [id number] 12:31:00 Test Item Value Reference Range Comments HEMOGLOBIN (BEAKER) (test bbsq=548) 10.2 g/dL 13.0-16.8 HEMATOCRIT (BEAKER) (test ppba=751) 30.0 % 40.0-50.0 GLUCOSE-STAT [id number] 12:31:00 Test Item Value Reference Range Comments GLUCOSE RANDOM (BEAKER) (test wnyk=136) 239 mg/dL 70-110 POTASSIUM-STAT [id number] 12:30:00 Test Item Value Reference Range Comments POTASSIUM (BEAKER) (test ocdt=110) 4.1 meq/L 3.6-5.5 CBC W/PLT COUNT & AUTO [id number] 12:24:00 Test Item Value Reference Range Comments WHITE BLOOD CELL COUNT (BEAKER) (test kkss=595) 12.6 K/ L 4.0-10.0 RED BLOOD CELL COUNT (BEAKER) (test tbsl=626) 3.27 M/ L 4.20-5.80 HEMOGLOBIN (BEAKER) (test lahn=600) 10.2 GM/DL 13.0-16.8 HEMATOCRIT (BEAKER) (test fduf=006) 29.6 % 40.0-50.0 MEAN CORPUSCULAR VOLUME (BEAKER) (test pnai=577) 90.5 fL 82.0-98.0 MEAN CORPUSCULAR HEMOGLOBIN (BEAKER) (test 31.1 pg 27.0-33.0 zvnx=461) MEAN CORPUSCULAR HEMOGLOBIN CONC (BEAKER) (test 34.4 GM/DL 32.0-36.0 xxtp=447) RED CELL DISTRIBUTION WIDTH (BEAKER) (test 14.2 % 10.3-14.2 idhl=492) PLATELET COUNT (BEAKER) (test vzjx=039) 137 K/CU MM 150-430 MEAN PLATELET VOLUME (BEAKER) (test wvlv=851) 8.1 fL 6.5-10.5 NUCLEATED RED BLOOD CELLS (BEAKER) (test 0 /100 WBC 0-0 elmy=432) NEUTROPHILS RELATIVE PERCENT (BEAKER) (test 85 % qmcy=649) LYMPHOCYTES RELATIVE PERCENT (BEAKER) (test 13 % fyrj=050) MONOCYTES RELATIVE PERCENT (BEAKER) (test 2 % dlbx=432) EOSINOPHILS RELATIVE PERCENT (BEAKER) (test 1 % ovkp=427) BASOPHILS RELATIVE PERCENT (BEAKER) (test 0 % erzl=903) NEUTROPHILS ABSOLUTE COUNT (BEAKER) (test 10.60 K/ L 1.80-8.00 fysf=946) LYMPHOCYTES ABSOLUTE COUNT (BEAKER) (test 1.59 K/ L 1.48-4.50 kbtl=047) MONOCYTES ABSOLUTE COUNT (BEAKER) (test 0.27 K/ L 0.00-1.30 xqxe=580) EOSINOPHILS ABSOLUTE COUNT (BEAKER) (test 0.06 K/ L 0.00-0.50 jwjy=238) BASOPHILS ABSOLUTE COUNT (BEAKER) (test 0.02 K/ L 0.00-0.20 tjox=892) [id number] 12:18:00 Test Item Value Reference Range Comments FIBRINOGEN LEVEL (BEAKER) (test zznl=318) 279 mg/dl 225-434 [id number] 12:18:00 Test Item Value Reference Range Comments PARTIAL THROMBOPLASTIN TIME (BEAKER) (test 33.1 seconds 22.5-36.0 iwub=701) PROTHROMBIN [id number] 12:17:00 Test Item Value Reference Range Comments PROTIME (BEAKER) (test nxmk=537) 16.4 seconds 11.7-14.7 INR (BEAKER) (test hdmh=706) 1.3 <=5.9 RECOMMENDED COUMADIN/WARFARIN INR THERAPY RANGESSTANDARD DOSE: 2.0 - 3.0 Includes: PROPHYLAXIS forvenous thrombosis, systemic embolization; TREATMENT for venous thrombosis and/or pulmonary embolus.HIGH RISK: Target INR is 2.5-3.5 for patients with mechanical heart valves.OXYGEN SATURATION, [id number] 12:02:00 Test Item Value Reference Range Comments O2 SATURATION (MEASURED) (BEAKER) (test eard=6728) 74.7 % CALCIUM, [id number] 11:58:00 Test Item Value Reference Range Comments CALCIUM IONIZED (BEAKER) (test vrka=090) 1.17 mmol/L 1.12-1.27 PH, BLOOD (BEAKER) (test ljwm=1270) 7.29 THROMBOELASTOGRAPH (TEG)[id number] 11:02:00 Test Item Value Reference Range Comments TEG ACTIVATED CLOTTING TIME (BEAKER) (test 4.4 minutes 4.0-7.0 gygg=0490) TEG FIBRINOGEN ACTIVITY (BEAKER) (test 71.9 degrees 61.0-73.0 vsmu=1131) TEG PLT. AGGREGATION (BEAKER) (test ygnn=2881) 47.5 MM 55.0-65.0 TGH ACTIVATED CLOTTING TIME (BEAKER) (test 5.3 minutes 4.0-7.0 atcy=9278) TGH FIBRINOGEN ACTIVITY (BEAKER) (test 68.1 degrees 61.0-73.0 wqzk=8398) TGH PLT. AGGREGATION (BEAKER) (test iily=5864) 50.1 MM 55.0-65.0 PLATELET [id number] 10:45:00 Test Item Value Reference Range Comments PLATELET COUNT (BEAKER) (test crjk=417) 114 K/CU MM 150-430 BLOOD GAS, [id number] 10:42:00 Test Item Value Reference Range Comments PH ARTERIAL (BEAKER) (test nupt=950) 7.36 7.35-7.45 PCO2 ARTERIAL (BEAKER) (test ytjd=656) 40 mmHg 35-45 PO2 ARTERIAL (BEAKER) (test jzwt=042) 81 mmHg 80-90 O2 SATURATION ARTERIAL (BEAKER) (test uixb=990) 96.5 % 96.0-97.0 HCO3 ARTERIAL (BEAKER) (test yrys=494) 23 mmol/L 21-29 BASE EXCESS ARTERIAL (BEAKER) (test qgrw=042) -3.2 mmol/L -2.0-3.0 PATIENT TEMPERATURE (BEAKER) (test vavd=2408) 35.1 C FIO2 (BEAKER) (test cfvv=1841) 40.0 % SODIUM NA-STAT [id number] 10:42:00 Test Item Value Reference Range Comments SODIUM (BEAKER) (test dcup=977) 132 meq/L 135-148 GLUCOSE-STAT [id number] 10:42:00 Test Item Value Reference Range Comments GLUCOSE RANDOM (BEAKER) (test bdsf=827) 251 mg/dL 70-110 HGB/HCT (H&H) - STAT [id number] 10:42:00 Test Item Value Reference Range Comments HEMOGLOBIN (BEAKER) (test sorp=711) 8.9 g/dL 13.0-16.8 HEMATOCRIT (BEAKER) (test tdqk=753) 26.0 % 40.0-50.0 CALCIUM, [id number] 10:42:00 Test Item Value Reference Range Comments CALCIUM IONIZED (BEAKER) (test acjq=652) 0.94 mmol/L 1.12-1.27 PH, BLOOD (BEAKER) (test dkjn=9279) 7.33 POTASSIUM-STAT [id number] 10:41:00 Test Item Value Reference Range Comments POTASSIUM (BEAKER) (test ctnq=567) 4.2 meq/L 3.6-5.5 [id number] 10:31:00 Test Item Value Reference Range Comments FIBRINOGEN LEVEL (BEAKER) (test tvmy=500) 287 mg/dl 225-434 [id number] 10:31:00 Test Item Value Reference Range Comments PARTIAL THROMBOPLASTIN TIME (BEAKER) (test 36.2 seconds 22.5-36.0 txgd=872) PROTHROMBIN TIME/[id number] 10:30:00 Test Item Value Reference Range Comments PROTIME (BEAKER) (test cfct=856) 18.5 seconds 11.7-14.7 INR (BEAKER) (test vdff=998) 1.6 <=5.9 RECOMMENDED COUMADIN/WARFARIN INR THERAPY RANGESSTANDARD DOSE: 2.0 - 3.0 Includes: PROPHYLAXIS forvenous thrombosis, systemic embolization; TREATMENT for venous thrombosis and/or pulmonary embolus.HIGH RISK: Target INR is 2.5-3.5 for patients with mechanical heart valves.BLOOD GAS, [id number] 10:21:00 Test Item Value Reference Range Comments PH ARTERIAL (BEAKER) (test vhjg=785) 7.30 7.35-7.45 PCO2 ARTERIAL (BEAKER) (test balh=361) 51 mmHg 35-45 PO2 ARTERIAL (BEAKER) (test sgha=041) 241 mmHg 80-90 O2 SATURATION ARTERIAL (BEAKER) (test drrb=076) 99.5 % 96.0-97.0 HCO3 ARTERIAL (BEAKER) (test buxf=069) 25 mmol/L 21-29 BASE EXCESS ARTERIAL (BEAKER) (test quxy=587) -2.5 mmol/L -2.0-3.0 PATIENT TEMPERATURE (BEAKER) (test qtnv=6356) 35.2 C FIO2 (BEAKER) (test xdbm=1114) 70.0 % SODIUM NA-STAT [id number] 10:21:00 Test Item Value Reference Range Comments SODIUM (BEAKER) (test rlij=746) 130 meq/L 135-148 GLUCOSE-STAT [id number] 10:21:00 Test Item Value Reference Range Comments GLUCOSE RANDOM (BEAKER) (test mpef=105) 261 mg/dL 70-110 HGB/HCT (H&H) - STAT [id number] 10:21:00 Test Item Value Reference Range Comments HEMOGLOBIN (BEAKER) (test piqx=069) 9.2 g/dL 13.0-16.8 HEMATOCRIT (BEAKER) (test oqfs=589) 27.0 % 40.0-50.0 POTASSIUM-STAT [id number] 10:20:00 Test Item Value Reference Range Comments POTASSIUM (BEAKER) (test oedr=966) 4.7 meq/L 3.6-5.5 CALCIUM, [id number] 10:18:00 Test Item Value Reference Range Comments CALCIUM IONIZED (BEAKER) (test vlnp=116) 1.12 mmol/L 1.12-1.27 PH, BLOOD (BEAKER) (test ylwo=6937) 7.27 POTASSIUM-STAT [id number] 09:54:00 Test Item Value Reference Range Comments POTASSIUM (BEAKER) (test pkcg=683) 4.9 meq/L 3.6-5.5 BLOOD GAS, [id number] 09:54:00 Test Item Value Reference Range Comments PH ARTERIAL (BEAKER) (test oqlt=408) 7.33 7.35-7.45 PCO2 ARTERIAL (BEAKER) (test hbxx=017) 46 mmHg 35-45 PO2 ARTERIAL (BEAKER) (test ampu=332) 269 mmHg 80-90 O2 SATURATION ARTERIAL (BEAKER) (test yopg=303) 99.6 % 96.0-97.0 HCO3 ARTERIAL (BEAKER) (test clca=342) 24 mmol/L 21-29 BASE EXCESS ARTERIAL (BEAKER) (test yluc=621) -2.5 mmol/L -2.0-3.0 PATIENT TEMPERATURE (BEAKER) (test cflc=2118) 36.0 C FIO2 (BEAKER) (test yxpy=1617) 70.0 % SODIUM NA-STAT [id number] 09:54:00 Test Item Value Reference Range Comments SODIUM (BEAKER) (test iufv=358) 130 meq/L 135-148 GLUCOSE-STAT [id number] 09:54:00 Test Item Value Reference Range Comments GLUCOSE RANDOM (BEAKER) (test wctx=902) 189 mg/dL 70-110 HGB/HCT (H&H) - STAT [id number] 09:54:00 Test Item Value Reference Range Comments HEMOGLOBIN (BEAKER) (test xuri=177) 8.7 g/dL 13.0-16.8 HEMATOCRIT (BEAKER) (test bmxj=906) 26.0 % 40.0-50.0 BLOOD GAS, [id number] 09:34:00 Test Item Value Reference Range Comments PH ARTERIAL (BEAKER) (test gqcw=415) 7.36 7.35-7.45 PCO2 ARTERIAL (BEAKER) (test zfih=105) 42 mmHg 35-45 PO2 ARTERIAL (BEAKER) (test btbi=548) 314 mmHg 80-90 O2 SATURATION ARTERIAL (BEAKER) (test krsm=514) 99.7 % 96.0-97.0 HCO3 ARTERIAL (BEAKER) (test ytaj=444) 25 mmol/L 21-29 BASE EXCESS ARTERIAL (BEAKER) (test uedg=935) -2.3 mmol/L -2.0-3.0 PATIENT TEMPERATURE (BEAKER) (test qtqa=8096) 31.0 C FIO2 (BEAKER) (test byqp=5165) 70.0 % SODIUM NA-STAT [id number] 09:34:00 Test Item Value Reference Range Comments SODIUM (BEAKER) (test mmle=904) 127 meq/L 135-148 POTASSIUM-STAT [id number] 09:34:00 Test Item Value Reference Range Comments POTASSIUM (BEAKER) (test hmnq=577) 5.5 meq/L 3.6-5.5 GLUCOSE-STAT [id number] 09:34:00 Test Item Value Reference Range Comments GLUCOSE RANDOM (BEAKER) (test dxgd=024) 177 mg/dL 70-110 HGB/HCT (H&H) - STAT [id number] 09:34:00 Test Item Value Reference Range Comments HEMOGLOBIN (BEAKER) (test wblz=698) 7.9 g/dL 13.0-16.8 HEMATOCRIT (BEAKER) (test dpsk=884) 23.0 % 40.0-50.0 BLOOD GAS, [id number] 09:33:00 Test Item Value Reference Range Comments PH VENOUS (BEAKER) (test tvgs=598) 7.33 7.32-7.42 PCO2 VENOUS (BEAKER) (test yyov=393) 49 mmHg 41-51 PO2 VENOUS (BEAKER) (test eoks=091) 44 mmHg 25-40 O2 SATURATION VENOUS (BEAKER) (test nhzr=365) 89.4 % 40.0-70.0 HCO3 VENOUS (BEAKER) (test ahle=709) 28 mmol/L 21-29 BASE EXCESS VENOUS (BEAKER) (test jsho=455) -0.1 mmol/L -2.0-3.0 PATIENT TEMPERATURE (BEAKER) (test mutr=0738) 31.0 C FIO2 (BEAKER) (test fsxy=9111) 70.0 % SODIUM NA-STAT [id number] 08:42:00 Test Item Value Reference Range Comments SODIUM (BEAKER) (test skxl=794) 135 meq/L 135-148 BLOOD GAS, [id number] 08:42:00 Test Item Value Reference Range Comments PH ARTERIAL (BEAKER) (test dhab=103) 7.47 7.35-7.45 PCO2 ARTERIAL (BEAKER) (test ezsg=425) 37 mmHg 35-45 PO2 ARTERIAL (BEAKER) (test xcvu=928) 405 mmHg 80-90 O2 SATURATION ARTERIAL (BEAKER) (test anst=073) 99.8 % 96.0-97.0 HCO3 ARTERIAL (BEAKER) (test smhf=805) 27 mmol/L 21-29 BASE EXCESS ARTERIAL (BEAKER) (test ayxu=173) 2.6 mmol/L -2.0-3.0 PATIENT TEMPERATURE (BEAKER) (test hupk=1889) 36.4 C FIO2 (BEAKER) (test lqyg=1280) 100.0 % POTASSIUM-STAT [id number] 08:42:00 Test Item Value Reference Range Comments POTASSIUM (BEAKER) (test ypzm=304) 3.3 meq/L 3.6-5.5 GLUCOSE-STAT [id number] 08:42:00 Test Item Value Reference Range Comments GLUCOSE RANDOM (BEAKER) (test smgk=692) 214 mg/dL 70-110 HGB/HCT (H&H) - STAT [id number] 08:42:00 Test Item Value Reference Range Comments HEMOGLOBIN (BEAKER) (test uvzg=743) 13.2 g/dL 13.0-16.8 HEMATOCRIT (BEAKER) (test aksw=077) 39.0 % 40.0-50.0 CALCIUM, [id number] 08:42:00 Test Item Value Reference Range Comments CALCIUM IONIZED (BEAKER) (test yxsa=689) 1.08 mmol/L 1.12-1.27 PH, BLOOD (BEAKER) (test lkde=4064) 7.46 POCT-GLUCOSE [id number] 06:55:00 Test Item Value Reference Range Comments POC-GLUCOSE METER (BEAKER) 229 mg/dL 70-[address] [facility] [address] [facility] (test scpl=1333) [facility] [id number] HEMOGLOBIN [id number] 11:00:00 Test Item Value Reference Range Comments HEMOGLOBIN A1C (BEAKER) (test gaqq=693) 15.1 % 4.3-6.1 BASIC METABOLIC [id number] 10:01:00 Test Item Value Reference Range Comments SODIUM (BEAKER) (test 135 meq/L 136-145 roxp=812) POTASSIUM (BEAKER) (test 4.6 meq/L 3.5-5.1 dhmc=499) CHLORIDE (BEAKER) (test 100 meq/L 98-107 ucgb=489) CO2 (BEAKER) (test 23 meq/L 22-29 mcas=429) BLOOD UREA NITROGEN 19 mg/dL 7-21 (BEAKER) (test kfyn=323) CREATININE (BEAKER) (test 1.16 mg/dL 0.57-1.25 zaam=668) GLUCOSE RANDOM (BEAKER) 352 mg/dL 70-105 (test uysj=161) CALCIUM (BEAKER) (test 9.9 mg/dL 8.4-10.2 gwra=691) EGFR (BEAKER) (test 66 mL/min/1.73 sq m ESTIMATED GFR IS NOT iiuj=5740) ACCURATE CREATININE CLEARANCE IN PREDICTING GLOMERULAR FILTRATION RATE. ESTIMATED GFR IS NOT APPLICABLE FOR DIALYSIS PATIENTS. [id number] 09:46:00 Test Item Value Reference Range Comments PROTIME (BEAKER) (test lrhq=933) 12.4 seconds 11.7-14.7 INR (BEAKER) (test zzim=632) 0.9 <=5.9 PARTIAL THROMBOPLASTIN TIME (BEAKER) (test 27.5 seconds 22.5-36.0 vdte=148) RECOMMENDED COUMADIN/WARFARIN INR THERAPY RANGESSTANDARD DOSE: 2.0 - 3.0 Includes: PROPHYLAXIS forvenous thrombosis, systemic embolization; TREATMENT for venous thrombosis and/or pulmonary embolus.HIGH RISK: Target INR is 2.5-3.5 for patients with mechanical heart valves.CBC W/PLT COUNT & AUTO [id number] 09:40:00 Test Item Value Reference Range Comments WHITE BLOOD CELL COUNT (BEAKER) (test hwgg=920) 8.9 K/ L 4.0-10.0 RED BLOOD CELL COUNT (BEAKER) (test smzb=206) 5.02 M/ L 4.20-5.80 HEMOGLOBIN (BEAKER) (test cjxz=513) 15.2 GM/DL 13.0-16.8 HEMATOCRIT (BEAKER) (test muoz=539) 46.1 % 40.0-50.0 MEAN CORPUSCULAR VOLUME (BEAKER) (test fwbk=019) 91.8 fL 82.0-98.0 MEAN CORPUSCULAR HEMOGLOBIN (BEAKER) (test 30.3 pg 27.0-33.0 vivy=039) MEAN CORPUSCULAR HEMOGLOBIN CONC (BEAKER) (test 33.0 GM/DL 32.0-36.0 hkzj=761) RED CELL DISTRIBUTION WIDTH (BEAKER) (test 13.4 % 10.3-14.2 ordp=052) PLATELET COUNT (BEAKER) (test erdq=373) 219 K/CU MM 150-430 MEAN PLATELET VOLUME (BEAKER) (test xjjc=991) 8.8 fL 6.5-10.5 NUCLEATED RED BLOOD CELLS (BEAKER) (test 0 /100 WBC 0-0 dtci=700) NEUTROPHILS RELATIVE PERCENT (BEAKER) (test 68 % xosr=462) LYMPHOCYTES RELATIVE PERCENT (BEAKER) (test 25 % qcki=041) MONOCYTES RELATIVE PERCENT (BEAKER) (test 4 % dfkp=852) EOSINOPHILS RELATIVE PERCENT (BEAKER) (test 2 % bgox=066) BASOPHILS RELATIVE PERCENT (BEAKER) (test 1 % ikzt=943) NEUTROPHILS ABSOLUTE COUNT (BEAKER) (test 6.03 K/ L 1.80-8.00 swpo=160) LYMPHOCYTES ABSOLUTE COUNT (BEAKER) (test 2.25 K/ L 1.48-4.50 mvyf=403) MONOCYTES ABSOLUTE COUNT (BEAKER) (test 0.39 K/ L 0.00-1.30 fkuh=586) EOSINOPHILS ABSOLUTE COUNT (BEAKER) (test 0.14 K/ L 0.00-0.50 ykxc=600) BASOPHILS ABSOLUTE COUNT (BEAKER) (test 0.06 K/ L 0.00-0.20 vsrt=348) 0.00
[2019-08-19 17:51] LABS: Absolute Lymphocytes (CBC) 1.8 K/uL (0.7-4.9); Hematocrit 41.5 % (39.6-49.0); Lymphocytes % 19.1 % (15.3-44.8); MPV 9.6 fL (7.6-11.3); Protime INR 0.94; RBC Red Blood Cell Count 4.52 M/uL (4.33-5.43)
[2019-08-19 18:07] LABS: ALT/SGPT 25 U/L (12-78); AST/SGOT 13 U/L (15-37); Albumin 3.2 g/dL (3.4-5.0); Alkaline Phosphatase 66 U/L (45-117); BUN Blood Urea Nitrogen 24 mg/dL (7-18); Bicarbonate 30 mmol/L (21-32); Bilirubin Direct < 0.1 mg/dL (0-0.2); Bilirubin Total 0.3 mg/dL (0.2-1.0); Glucose Level 94 mg/dL (74-106); Magnesium 2.2 mg/dL (1.8-2.4); NT PRO-BNP 613 pg/mL (<125); Potassium 4.1 mmol/L (3.5-5.1); Protein, Total 7.4 g/dL (6.4-8.2); Sodium Level 142 mmol/L (136-145); Troponin (Emerg Dept Use Only) < 0.02 ng/mL (0.0-0.045)
--- NOTE | 2019-08-19 19:04 | RAD REPORT ---
EXAM DESCRIPTION: RAD - Chest Single View - 08/19/2019 6:28 pm CLINICAL HISTORY: COUGH Chest pain. COMPARISON: Chest Pa And Lat (2 Views) dated 07/16/2019; Chest Pa And Lat (2 Views) dated 04/10/2019; Chest Single View dated 12/17/2018; Chest Pa And Lat (2 Views) dated 08/17/2018; Thorax Wo Con dated FINDINGS: Portable technique limits examination quality. Left apex cavitary lesion with adjacent pleural thickening and areas of nodularity appears unchanged since comparative studies. Cavitary lesion in left lung base also appears essentially stable since co mparative examination. The right lung appears clear. The heart is moderately enlarged in size with st ernotomy wires present. No displaced fractures. IMPRESSION: Stable chest since 07/16/2019.
--- NOTE | 2019-08-19 19:10 | ER ---
Nurse's Notes [facility] Name: Los Griggs Jr Age: 54 yrs Sex: Male : 1965 Arrival Date: 08/19/2019 Time: 17:12 Bed 20 Private MD: Diagnosis: Cardiomegaly;Type 2 diabetes mellitus;Hypoglycemia, unspecified Presentation: 08/18 17:12 Chief complaint: EMS states: Pt was on the trail hiking when he felt dizzy, ca1 lightheaded, pale, sweaty and clammy. Denies any pain. BGL on scene was 55. Dextrose 20gm given BGL went up to 249. NS 100ml given. EKG on NS with occasional PVCs. Hx of MD and CABG. Coronavirus screen: The patient has NOT traveled to [place] in the past 14 days. The patient has NOT had contact with known and/or suspected case of Coronavirus. Ebola Screen: Patient negative for fever greater than or equal to 101.5 degrees Fahrenheit, and additional compatible Ebola Virus Disease symptoms Patient denies exposure to infectious person. Patient denies travel to an Ebola-affected area in the 21 days before illness onset. No symptoms or risks identified at this time. Initial Sepsis Screen: Does the patient meet any 2 criteria? No. Patient's initial sepsis screen is negative. Does the patient have a suspected source of infection? No. Patient's initial sepsis screen is negative. Risk Assessment: Do you want to hurt yourself or someone else? Patient reports no desire to harm self or others. Onset of symptoms was August 19, 2019. Care prior to arrival: Medication(s) given: Normal saline infusion, 100ML IV initiated. 20 GA, in the right antecubital area, Glucose check: 55 Rpt BGL 249. 17:12 Method Of Arrival: EMS ca1 17:12 Acuity: JAIMEE 3 ca1 Triage Assessment: 17:24 General: Appears in no apparent distress. uncomfortable, Behavior is calm, cooperative, jl7 appropriate for age. Pain: Denies pain. Historical: - Allergies: 17:19 No Known Allergies; ca1 - Home Meds: 17:32 Anoro Ellipta 62.5-25 mcg/actuation inhalation dsdv 1 puff once daily [Active]; aspirin jl7 81 mg Oral TbEC 1 tab once daily [Active]; atorvastatin 40 mg Oral tab 1 tab once daily [Active]; azithromycin 500 mg Oral tab 1 tab twice daily [Active]; ethambutol 400 mg Oral tab three times daily [Active]; gabapentin 300 mg Oral cap [Active]; metoprolol tartrate 25 mg Oral tab 1 tab 2 times per day [Active]; rifampin 300 mg Oral cap 1 caps 2 times per day [Active]; Tresiba FlexTouch U-100 subcutaneous [Active]; - PMHx: 17:19 Bulging disc to back ; negative mri; CHF; COPD; Diabetes - NIDDM; Hypertension; ca1 mycoplasm avium-chronic lung disease; Myocardial infarction; Pneumonia; - PSHx: 17:19 CABG; Heart stents; Carotid surgery; ca1 - Immunization history:: Adult Immunizations up to date, Flu vaccine is not up to date. - Social history:: Smoking status: Patient reports the use of cigarette tobacco products, 3-74 cigarettes a day. - Family history:: not pertinent. Screenin:25 Abuse screen: Denies threats or abuse. Denies injuries from another. Nutritional jl7 screening: No deficits noted. Tuberculosis screening: No symptoms or risk factors identified. Fall Risk IV access (20 points). Total White Fall Scale indicates No Risk (0-24 pts). Assessment: 17:17 General: Appears in no apparent distress. comfortable, Behavior is calm, cooperative, ia1 appropriate for age. Pain: Denies pain. Neuro: Level of Consciousness is awake, alert, obeys commands, Oriented to person, place, time, situation. Cardiovascular: Heart tones S1 S2 Patient's skin is warm and dry. Respiratory: Airway is patent Respiratory effort is even, unlabored, Respiratory pattern is regular, symmetrical, Breath sounds are clear bilaterally. Derm: Skin is pink, warm \T\ dry. 18:15 Reassessment: Patient appears in no apparent distress at this time. Patient and/or jl7 family updated on plan of care and expected duration. Pain level reassessed. Patient is alert, oriented x 3, equal unlabored respirations, skin warm/dry/pink. Patient denies pain at this time. Patient states feeling better. 18:30 Reassessment: pt given diet tray. jl7 20:21 Reassessment: Patient appears in no apparent distress at this time. No changes from bb3 previously documented assessment. Patient is alert, oriented x 3, equal unlabored respirations, skin warm/dry/pink. General: Appears in no apparent distress. comfortable. Pain: Denies pain. Vital Signs: 17:12 BP 118 / 75; Pulse 82; Resp 12; Temp 97.6(O); Pulse Ox 96% on R/A; Weight 104.33 kg ca1 (R); Height 5 ft. 10 in. (177.80 cm) (R); Pain 0/10; 19:15 BP 152 / 121 LA Supine (auto/reg); Pulse 98 MON; mb4 19:18 BP 153 / 86 LA Sitting (auto/reg); Pulse 98 MON; mb4 19:21 BP 132 / 87 LA Standing (auto/reg); Pulse 95 MON; mb4 17:12 Body Mass Index 33.00 (104.33 kg, 177.80 cm) ca1 ED Course: 17:12 Patient arrived in ED. ca1 17:13 Bienvenido Rubio MD is Attending Physician. dannie 17:17 Triage completed. ca1 17:19 Arm band placed on right wrist. EKG completed in triage. Results shown to MD. ca1 17:24 Umesh Guidry, RN is Primary Nurse. jl7 17:25 Patient has correct armband on for positive identification. Bed in low position. Call jl7 light in reach. Side rails up X2. electronic system engineer on. Pulse ox on. NIBP on. 17:25 Maintain EMS IV. Dressing intact. Good blood return noted. Site clean \T\ dry. Gauge \T\ jl 7 site: 20 right AC. 17:45 Initial lab(s) drawn, by in, sent to lab. jl7 18:34 XRAY Chest (1 view) In Process Unspecified. EDMS 19:07 Ruiz Ortega MD is Referral Physician. dannie 19:38 Primary Nurse role handed off by Umesh Guidry, MAHAMED jl7 20:21 No provider procedures requiring assistance completed. bb3 20:24 IV discontinued, intact, bleeding controlled, No redness/swelling at site. Pressure bb3 dressing applied. Administered Medications: 17:35 CANCELLED (Duplicate Order): NS 0.9% 1000 ml IV at 1 bolus Per protocol; 1000 mL bolus dannie 17:59 Drug: NS 0.9% 500 ml Route: IV; Rate: bolus; Site: right antecubital; jl7 18:35 Follow up: Response: No adverse reaction; IV Status: Completed infusion; IV Intake: ia1 500ml Point of Care Testing: Blood Glucose: 17:24 Blood Glucose: 151 mg/dL; jl7 Ranges: Intake: 18:35 IV: 500ml; Total: 500ml. ia1 Outcome: 19:00 Attestation : I agree with everything documented by Carmen, Student Nurse. [email or web address] 19:09 Discharge ordered by MD. pandey 20:21 Discharged to home via wheelchair, with family. [email or web address] 20:21 Condition: stable 20:21 Discharge instructions given to patient, family, Instructed on discharge instructions, follow up and referral plans. Demonstrated understanding of instructions, follow-up care, Prescriptions given X none 20:47 Patient left the ED. mg2 Signatures: Dispatcher [employer] EDMS Bienvenido Rubio MD MD cha Leal, Jahala RN RN jl7 Yao Bucio RN RN mg2 Adela [email or web address] Jud Beckham RN RN ca1 Rachel Mena bb3 Carmen Glynn ia1
--- NOTE | 2019-08-19 19:11 | EDPHYS ---
Physician Documentation [facility] Name: Los Griggs Jr Age: 54 yrs Sex: Male : 1965 Arrival Date: 08/19/2019 Time: 17:12 Bed 20 Private MD: CÉSAR Physician Bienvenido Rubio HPI: 08/18 17:37 This 54 yrs old Male presents to ER via EMS with complaints of hypoglycemia dannie and weakness. 17:37 The patient has experienced near-syncope. Onset: The symptoms/episode began/occurred dannie just prior to arrival. Duration: This was a single episode, that lasted 60 second(s). The patient presents with dizziness, feeling faint, generalized weakness, lightheadedness. Onset: The symptoms/episode began/occurred. Context: occurred outdoors, at a park, occurred while the patient was walking. Modifying factors: The symptoms are alleviated by nothing, the symptoms are aggravated by nothing. Associated signs and symptoms: The patient has no apparent associated signs or symptoms. Severity of symptoms: At their worst the symptoms were mild moderate in the emergency department the symptoms are unchanged. Historical: - Allergies: 17:19 No Known Allergies; ca1 - Home Meds: 17:32 Anoro Ellipta 62.5-25 mcg/actuation inhalation dsdv 1 puff once daily [Active]; aspirin jl7 81 mg Oral TbEC 1 tab once daily [Active]; atorvastatin 40 mg Oral tab 1 tab once daily [Active]; azithromycin 500 mg Oral tab 1 tab twice daily [Active]; ethambutol 400 mg Oral tab three times daily [Active]; gabapentin 300 mg Oral cap [Active]; metoprolol tartrate 25 mg Oral tab 1 tab 2 times per day [Active]; rifampin 300 mg Oral cap 1 caps 2 times per day [Active]; Tresiba FlexTouch U-100 subcutaneous [Active]; - PMHx: 17:19 Bulging disc to back ; negative mri; CHF; COPD; Diabetes - NIDDM; Hypertension; ca1 mycoplasm avium-chronic lung disease; Myocardial infarction; Pneumonia; - PSHx: 17:19 CABG; Heart stents; Carotid surgery; ca1 - Immunization history:: Adult Immunizations up to date, Flu vaccine is not up to date. - Social history:: Smoking status: Patient reports the use of cigarette tobacco products, 3-74 cigarettes a day. - Family history:: not pertinent. ROS: 17:37 Constitutional: Negative for fever, chills, and weight loss, Eyes: Negative for injury, dannie pain, redness, and discharge, ENT: Negative for injury, pain, and discharge, Neck: Negative for injury, pain, and swelling, Cardiovascular: Negative for chest pain, palpitations, and edema, Respiratory: Negative for shortness of breath, cough, wheezing, and pleuritic chest pain, Abdomen/GI: Negative for abdominal pain, nausea, vomiting, diarrhea, and constipation, Back: Negative for injury and pain, : Negative for injury, bleeding, discharge, and swelling, MS/Extremity: Negative for injury and deformity, Skin: Negative for injury, rash, and discoloration, Psych: Negative for depression, anxiety, suicide ideation, homicidal ideation, and hallucinations, Allergy/Immunology: Negative for hives, rash, and allergies, Hematologic/Lymphatic: Negative for swollen nodes, abnormal bleeding, and unusual bruising. 17:37 Neuro: Positive for weakness. 17:37 Endocrine: Positive for hypoglycemia. Exam: 17:37 Constitutional: This is a well developed, well nourished patient who is awake, alert, dannie and in no acute distress. Head/Face: Normocephalic, atraumatic. Eyes: Pupils equal round and reactive to light, extra-ocular motions intact. Lids and lashes normal. Conjunctiva and sclera are non-icteric and not injected. Cornea within normal limits. Periorbital areas with no swelling, redness, or edema. ENT: Nares patent. No nasal discharge, no septal abnormalities noted. Tympanic membranes are normal and external auditory canals are clear. Oropharynx with no redness, swelling, or masses, exudates, or evidence of obstruction, uvula midline. Mucous membranes moist. Neck: Trachea midline, no thyromegaly or masses palpated, and no cervical lymphadenopathy. Supple, full range of motion without nuchal rigidity, or vertebral point tenderness. No Meningismus. Chest/axilla: Normal chest wall appearance and motion. Nontender with no deformity. No lesions are appreciated. Cardiovascular: Regular rate and rhythm with a normal S1 and S2. No gallops, murmurs, or rubs. Normal PMI, no JVD. No pulse deficits. Respiratory: Lungs have equal breath sounds bilaterally, clear to auscultation and percussion. No rales, rhonchi or wheezes noted. No increased work of breathing, no retractions or nasal flaring. Abdomen/GI: Soft, non-tender, with normal bowel sounds. No distension or tympany. No guarding or rebound. No evidence of tenderness throughout. Back: No spinal tenderness. No costovertebral tenderness. Full range of motion. Male : Normal genitalia with no discharge or lesions. Skin: Warm, dry with normal turgor. Normal color with no rashes, no lesions, and no evidence of cellulitis. MS/ Extremity: Pulses equal, no cyanosis. Neurovascular intact. Full, normal range of motion. Neuro: Awake and alert, GCS 15, oriented to person, place, time, and situation. Cranial nerves II-XII grossly intact. Motor strength 5/5 in all extremities. Sensory grossly intact. Cerebellar exam normal. Normal gait. Psych: Awake, alert, with orientation to person, place and time. Behavior, mood, and affect are within normal limits. Vital Signs: 17:12 BP 118 / 75; Pulse 82; Resp 12; Temp 97.6(O); Pulse Ox 96% on R/A; Weight 104.33 kg ca1 (R); Height 5 ft. 10 in. (177.80 cm) (R); Pain 0/10; 19:15 BP 152 / 121 LA Supine (auto/reg); Pulse 98 MON; mb4 19:18 BP 153 / 86 LA Sitting (auto/reg); Pulse 98 MON; mb4 19:21 BP 132 / 87 LA Standing (auto/reg); Pulse 95 MON; mb4 17:12 Body Mass Index 33.00 (104.33 kg, 177.80 cm) ca1 MDM: 17:13 Patient medically screened. [facility] 17:40 Data reviewed: vital signs, nurses notes, lab test result(s), EKG, radiologic studies, dannie plain films. 08/18 17:24 Order name: Glucose, Ancillary Testing; Complete Time: 18:32 EDOK 08/18 17:26 Order name: Basic Metabolic Panel; Complete Time: 18:32 [facility] 08/18 17:26 Order name: CBC with Diff; Complete Time: 18:32 dannie 08/18 17:26 Order name: LFT's; Complete Time: 18:32 [facility] 08/18 17:26 Order name: Magnesium; Complete Time: 18:32 [facility] 08/18 17:26 Order name: NT PRO-BNP; Complete Time: 18:32 [facility] 08/18 17:26 Order name: PT-INR; Complete Time: 18:32 [facility] 08/18 17:26 Order name: Troponin (emerg Dept Use Only); Complete Time: 18:32 [facility] 08/18 17:26 Order name: XRAY Chest (1 view) [facility] 08/18 17:26 Order name: EKG; Complete Time: 17:28 [facility] 08/18 17:26 Order name: Diet Regular; Complete Time: 17:28 [facility] 08/18 19:39 Order name: Glucose, Ancillary Testing EDMS 08/18 17:26 Order name: Cardiac monitoring; Complete Time: 17:48 [facility] 08/18 17:26 Order name: EKG - Nurse/Tech; Complete Time: 17:48 [facility] 08/18 17:26 Order name: IV Saline Lock; Complete Time: 17:48 [facility] 08/18 17:26 Order name: Labs collected and sent; Complete Time: 17:48 [facility] 08/18 17:26 Order name: O2 Per Protocol; Complete Time: 17:48 [facility] 08/18 17:26 Order name: O2 Sat Monitoring; Complete Time: 17:48 [facility] 08/18 19:00 Order name: Blood Glucose Level [facility] 08/18 19:00 Order name: Orthostatics dannie Administered Medications: 17:35 CANCELLED (Duplicate Order): NS 0.9% 1000 ml IV at 1 bolus Per protocol; 1000 mL bolus [facility] 17:59 Drug: NS 0.9% 500 ml Route: IV; Rate: bolus; Site: right antecubital; jl7 18:35 Follow up: Response: No adverse reaction; IV Status: Completed infusion; IV Intake: ia1 500ml Point of Care Testing: Blood Glucose: 17:24 Blood Glucose: 151 mg/dL; jl7 Ranges: Critical Glucose Levels:Adult <50 mg/dl or >400 mg/dl <40 mg/dl or >180 mg/dl Disposition: 08/19/19 19:09 Discharged to Home. Impression: Cardiomegaly, Type 2 diabetes mellitus, Hypoglycemia, unspecified. - Condition is Stable. - Discharge Instructions: Type 2 Diabetes Mellitus, Diagnosis, Adult, Hypoglycemia, Blood Glucose Monitoring, Adult, Type 2 Diabetes Mellitus, Diagnosis, Adult, [id number], Hypoglycemia, [id number]. - Medication Reconciliation Form, Thank You Letter, Antibiotic Education, Prescription Opioid Use form. - Follow up: Private Physician; When: 2 - 3 days; Reason: Recheck today's complaints, Continuance of care, Re-evaluation by your physician. Follow up: Ruiz Ortega MD; When: 2 - 3 days; Reason: Recheck today's complaints, Continuance of care, Re-evaluation by your physician. - Problem is new. - Symptoms have improved. Signatures: Dispatcher [employer] EDMS Bienvenido Rubio MD MD cha Leal, Jahala RN RN jl7 Yao Bucio RN RN mg2 Jud Beckham RN RN ca1 Carmen Glynn Corrections: (The following items were deleted from the chart) 17:35 17:26 NS 0.9% 1000 ml IV at 1 bolus Per protocol; 1000 mL bolus ordered. [facility] 20:47 19:09 08/19/2019 19:09 Discharged to Home. Impression: Cardiomegaly; Type 2 diabetes mg2 mellitus; Hypoglycemia, unspecified. Condition is Stable. Forms are Medication Reconciliation Form, Thank You Letter, Antibiotic Education, Prescription Opioid Use. Follow up: Private Physician; When: 2 - 3 days; Reason: Recheck today's complaints, Continuance of care, Re-evaluation by your physician. Follow up: Ruiz Ortega; When: 2 - 3 days; Reason: Recheck today's complaints, Continuance of care, Re-evaluation by your physician. Problem is new. Symptoms have improved. [facility]
[2019-08-19 21:09] VITALS: TEMP 97.6; O2SAT 96
[2019-08-19 21:33] VITALS: BP 132/87
--- NOTE | 2019-08-20 15:34 | EKG ---
Test Date: 2019-08-19 Test Time: 17:31:40 Parts Specialist: SAM MEASUREMENT RESULTS: Intervals: Rate: 79 [place]: 176 QRSD: 106 QT: 448 QTc: 513 [place]: P: 68 OH: 176 QRS: 29 T: 69 INTERPRETIVE STATEMENTS: Sinus rhythm with occasional premature ventricular complexes Minimal voltage criteria for LVH, may be normal variant Cannot rule out Inferior infarct, age undetermined Prolonged QT Abnormal ECG Compared to ECG 12/17/2018 15:54:38 Myocardial infarct finding now present ST (T wave) deviation no longer present Electronically Signed On 08-20-19 15:33:27 MEDICAL GENETICS DIRECTOR by Ruiz Ortega
== END 2019-08-19 20:47 | disposition home or self-care (01) ==
LOC: ER 17:05
DX: E11.649 Type 2 diabetes mellitus with hypoglycemia without coma (principal); I51.7 Cardiomegaly; I10 Essential (primary) hypertension; J44.9 Chronic obstructive pulmonary disease, unspecified; Z95.1 Presence of aortocoronary bypass graft
CPT/HCPCS: 36415; 71045; 80048; 80076; 82947; 83735; 83880; 84484; 85025; 85610; 93005; 96360; 99284

== ENCOUNTER 2020-01-02 13:08 | Observation (INO) | payer OTHER ==
[2020-01-02 13:28] LABS: Absolute Lymphocytes (CBC) 1.3 K/uL (0.7-4.9); Basophils % 0.9 % (0-1.3); Hematocrit 43.1 % (39.6-49.0); Lymphocytes % 10.5 % (15.3-44.8); MPV 10.2 fL (7.6-11.3); RBC Red Blood Cell Count 4.68 M/uL (4.33-5.43)
--- OUTSIDE RECORDS SUMMARY | 2020-01-02 13:30 | XMS REPORT | Clinical Summary ---
:1965 [address] [facility] Address [address] [place] [address] Care Team Providers Name Role Phone Andrew Xiao Unavailable Pcp Primary Care Provider Unavailable Allergies No Known Allergies Medications Medication Sig Dispensed Refills Start Date End Date Status ethambutol Take 1,200 mg by 0 Ac tive (MYAMBUTOL) 400 MG mouth daily. tablet albuterol HFA Inhale 2 puffs by 0 Active (VENTOLIN HFA) 90 mouth via inhaler mcg/actuation every 6 (six) hours inhaler as needed for Wheezing. rifAMPin (RIFADIN) Take 600 mg by mouth 0 Active 300 MG capsule daily. pen needle, To use 6 a day. 600 each 3 11/07/2016 A ctive diabetic 31 gauge x 5/16" Ndle azithromycin Take 500 mg by mouth 0 Active (ZITHROMAX) 500 MG daily. tablet insulin regular Inject 25 Units 0 Active (HUMULIN R,NOVOLIN subcutaneously 2 R) 100 unit/mL (two) times daily injection Sliding scale . prasugrel (EFFIENT) Take 10 mg by mouth 0 Active 10 mg Tab tablet daily Took 20 mg this am as instructed . aspirin 81 MG EC Take 81 mg by mouth 0 Active tablet daily. Active Problems Problem Noted Date Carotid stenosis, right 12/06/2017 Carotid artery stenosis 12/06/2017 Mycobacterium avium complex 12/03/2017 Bilateral carotid artery disease 12/03/2017 S/P CABG x 3 12/03/2017 Coronary artery disease involving mi[place]kmaq coronary alexander ry of [place] heart 10/27/2016 without angina pectoris Systolic congestive heart failure 10/27/2016 S/P coronary artery stent placement 10/27/2016 Cardiomyopathy 10/27/2016 Essential hypertension 10/27/2016 Insulin dependent diabetes mellitus 10/27/2016 COPD (chronic obstructive pulmonary disease) 7 Current every day smoker 10/27/2016 Social History Tobacco Use Types Packs/Day Years Used Date Former Smoker 30 Smokeless Tobacco: Former User Comments: quit 2017 Alcohol Use Drinks/Week oz/Week Comments No Sex Assigned at Date Recorded Not on file Job Start Date Occupation Industry Not on file Not on file Not on file Travel History Travel Start Travel End No recent travel history available. Last Filed Vital Signs Not on file Plan of Treatment Health Maintenance Due Date Last Done Comments COLON CANCER SCREENING ANNUAL FOBT 1965 PNEUMOCOCCAL VACCINE 2-64 YEARS AT RISK (1 - 1970 PPSV23) MEDICARE ANNUAL WELLNESS (YEAR 2 or FIRST YEAR if no 03/21/2017 IPPE) INFLUENZA VACCINE (#1) 2020 Results Not on fileafter 01/01/2019 Insurance Payer Benefit Plan / Group Subscriber ID Type Phone A ddress MEDICARE MEDICARE A B xxxxxxxxxx Medicare Advance Directives For more information, please contact:[address] [phone] Code Status Date Activated Date Inactivated Comments Full Code 12/06/2017 6:39 AM 12/07/2017 1:30 PM This code status was determined by: Patient Full Code 11/01/2016 6:01 AM 11/08/2016 4:15 PM This code status was determined by: Patient
--- OUTSIDE RECORDS SUMMARY | 2020-01-02 13:33 | XMS REPORT | Continuity of Care Document ---
:1965 Author Organization [facility] t Address [address] [place] [address] Care Team Providers Name Role Phone Pcp Primary Care Physician Unavailable ARIES YANEZ Attending Clinician Unavailable CRIS HURLEY Attending Clinician Unavailable ARIES YANEZ Admitting Clinician Unavailable CRIS HURLEY Admitting Clinician Unavailable Problems Condition Condition Condition Status Onset Resolution Last Treating Co mments Source Name Details Category Date Date Treatment Clinician Date Carotid Carotid Disease Active [facility] stenosis, stenosis, 6-[facility] right right 00:[facility]: Medical 00 Center Carotid Carotid Disease Active [facility] artery artery 6-[facility] stenosis stenosis 00:00: Medica l 00 Center 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 6-16 [facility] - complex complex 00:00: Medical 00 Center Bilateral Bilateral Disease Active [facility] carotid carotid 6-16 [facility] - artery artery 00:00: Medical disease disease 00 Center S/P CABG x S/P CABG x Disease Active [facility] 3 3 6-16 [facility] - 00[facility]: Medical 00 Center Coronary Coronary Disease [facility]10 [facility] - disease disease 00:00: Medical involving involving 00 Cent [place] coronary coronary artery of artery of [place] heart heart without without angina angina pectoris pectoris Systolic Systolic Disease [facility] congestive congestive 5-10 Annita kes - heart heart 00:00: Medical failure failure 00 Center S/P S/P Disease Active [facility] coronary coronary 5-10 [facility] - artery artery 00:00: Medical stent stent 00 Center placement placement Cardiomyop Cardiomyop Disease Active [facility] athy athy 5-10 [facility] - 00:[facility]: Medical 00 [place] Essential Essential Disease Active [facility] hypertensi hypertensi 5-10 Annita kes - on on 00:00: Medical 00 [place] 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 Social History Social Habit Start Date Stop Date Quantity Comments Source Sex Assigned At [facility] Tobacco Comment 2017-12-06 2017-12-06 quit 2017 [facility] - 00:00:00 00:00:00 [facility] Smoking Status Start Date Stop Date Source Former smoker 2017-12-07 00:00:00 2017-12-07 00:00:00 [facility] Medications Ordered Filled Start Stop Current Ordering Indication Dosage Frequency Signature Comments Components Source Medication Medication Date Date Medication? Clinician (SIG) Name Name aspirin 81 Yes 81mg QD Take [address] MG EC 6-19 by mouth [facility] - tablet 10:17: daily. [address] prasugrel Yes 10mg QD Take [address] (EFFIENT) 6-19 by mouth [facility] - 10 mg Tab 06:58: daily Took Me dical tablet 35 20 mg this [place] am as instructed . azithromyci Yes 500mg QD Take [address] n 6-19 mg by [facility] - (ZITHROMAX) 06:58: mouth Medic al 500 MG 34 daily. [place] tablet insulin Yes 25U Q.5D Inject 25 [facility] regular 6-19 Units [facility] - (HUMULIN 06:58: subcutaneo Med ical R,NOVOLIN 34 usly 2 Center R) 100 (two) unit/mL times injection daily Sliding scale . pen needle, Yes To use [address] diabetic 31 5-21 day. [facility] - gauge x 00:00: Medical 11/02" Ndle 00 Center albuterol Yes 2{puff} Inhale [address] HFA 5-09 puffs by [facility] - (VENTOLIN 07:30: mouth via Med ical HFA) 90 37 inhaler Center mcg/actuati every 6 on inhaler (six) hours as needed for Wheezing. rifAMPin Yes 600mg QD Take [address] (RIFADIN) 5-09 mg by [facility] - 300 MG 07:30: mouth Medical capsule 37 daily. Center ethambutol Yes 1200mg QD Take 1,[address] (MYAMBUTOL) 5-09 mg by [facility] - 400 MG 07:30: mouth Medical tablet 36 daily. Center Procedures This patient has no known procedures. Plan of Care Planned Activity Planned Date Details Comments Source Future Scheduled 2020-02-19 INFLUENZA VACCINE (#1) [facility] - Test 00:00:00 [code = INFLUENZA Medical Ce nter VACCINE (#1)] Future Scheduled 2017-03-[address] [facility] - Test 00:00:00 WELLNESS (YEAR 2 or Medical Center FIRST YEAR if no IPPE) [code = MEDICARE ANNUAL WELLNESS (YEAR 2 or FIRST YEAR if no IPPE)] Future Scheduled [address] [facility] - Test 00:00:00 2-64 YEARS AT RISK ([facility] - PPSV23) [code = PNEUMOCOCCAL VACCINE 2-64 YEARS AT RISK (1 of 1 - PPSV23)] Future Scheduled [address] [facility] Kathy es - Test 00:00:00 [facility] colon (procedure) [code = 204052937] Results Test Description Test Time Test Comments Results Result Comments Source PLATELET AGGREGATION: FUNCTION SCREEN 2017-12-07 09:51:00 Test Item Value Reference Range Interpretation Comme nts WEAK ADP RESULT(BEAKER) (test code = 7 % 60-91 L 2132) PLATELET FUNCTION SCREEN INTERP 0-39% indicates marked platelet (BEAKER) (test code = 2173) dysfunction [id number] (BEAKER) (test Jannette Bryant MD (electr onic code = 2622) signature) PLATELET COUNT AGG (BEAKER) (test code 198 K/CU MM 150-450 = 2656) POCT-GLUCOSE [id number] 09:13:00 Test Item Value Reference Range Interpretation Comments POC-GLUCOSE METER 368 mg/dL 70-110 H TESTED AT [facility] 6720 (BEAKER) (test code = [place] 1538) [address] BASIC METABOLIC [id number] 04:10:00 Test Item Value Reference Range Interpretation Comments SODIUM (BEAKER) 136 meq/L 136-145 (test code = 381) POTASSIUM (BEAKER) 4.2 meq/L 3.5-5.1 (test code = 379) CHLORIDE (BEAKER) 104 meq/L 98-107 (test code = 382) CO2 (BEAKER) (test 26 meq/L 22-29 code = 355) BLOOD UREA NITROGEN 17 mg/dL 7-21 (BEAKER) (test code = 354) CREATININE (BEAKER) 0.99 mg/dL 0.57-1.25 (test code = 358) GLUCOSE RANDOM 320 mg/dL 70-105 H (BEAKER) (test code = 652) CALCIUM (BEAKER) 8.9 mg/dL 8.4-10.2 (test code = 697) EGFR (BEAKER) (test 79 mL/min/1.73 ESTIMA KAILASH GFR IS code = 1092) sq m NOT ACCURATE CREATININE CLEARANCE IN PREDICTING GLOMERULAR FILTRATION RATE . ESTIMATED GFR I S NOT APPLICABLE FOR DIALYSIS PATIEN TS. CBC (HEMOGRAM ONLY)2017-12-07 03:49:00 Test Item Value Reference Range Interpretation Comments WHITE BLOOD CELL COUNT (BEAKER) 7.2 K/ L 3.5-10.5 (test code = 775) RED BLOOD CELL COUNT (BEAKER) 4.27 M/ L 4.63-6.08 L (test code = 761) HEMOGLOBIN (BEAKER) (test code = 12.3 GM/DL 13.7-17.5 L 410) HEMATOCRIT (BEAKER) (test code = 38.3 % 40.1-51.0 L 411) MEAN CORPUSCULAR VOLUME (BEAKER) 89.7 fL 79.0-92.2 (test code = 753) MEAN CORPUSCULAR HEMOGLOBIN 28.8 pg 25.7-32.2 (BEAKER) (test code = 751) MEAN CORPUSCULAR HEMOGLOBIN CONC 32.1 GM/DL 32.3-36.5 L ([facility]) (test code = 752) RED CELL DISTRIBUTION WIDTH 14.6 % 11.6-14.4 H ([facility]) (test code = 412) PLATELET COUNT ([facility]) (test 194 K/CU MM 150-450 code = 756) MEAN PLATELET VOLUME ([facility]) 11.4 fL 9.4-12.4 (test code = 754) NUCLEATED RED BLOOD CELLS 0 /100 WBC 0-0 ([facility]) (test code = 413) POCT-GLUCOSE [id number] 22:59:00 Test Item Value Reference Range Interpretation Comments POC-GLUCOSE METER 281 mg/dL 70-110 H TESTED AT [place] [address] ([facility]) (test code = [place] [facility] 1538) [address] POCT-GLUCOSE [id number] 17:19:00 Test Item Value Reference Range Interpretation Comments POC-GLUCOSE METER 398 mg/dL 70-110 H TESTED AT [place] [address] ([facility]) (test code = [place] [facility] 1538) [id number] 15:41:00 Test Item Value Reference Range Interpretation Comments ACTIVATED CLOTTING TIME 131 sec TEST ED AT [place] [address] ([facility]) (test code = [place] [facility] 441) [address] [id number] 14:07:00 Test Item Value Reference Range Interpretation Comments ACTIVATED CLOTTING TIME 142 sec TEST ED AT [place] [address] ([facility]) (test code = [place] [facility] 441) [address] [id number] 09:52:00 Test Item Value Reference Range Interpretation Comments ACTIVATED CLOTTING TIME 362 sec TEST ED AT [place] [address] ([facility]) (test code = [place] [facility] 441) [address] POCT-GLUCOSE [id number] 07:42:00 Test Item Value Reference Range Interpretation Comments POC-GLUCOSE METER 196 mg/dL 70-110 H TESTED AT [place] [address] ([facility]) (test code = [place] 1538) [id number] MR, MRA, BRAIN, [id number] 13:28:00FINAL REPORT MRA head, arch, great vessels, and neck CLINICAL HISTORY: RIGHT CAROTID STENOSIS TECHNIQUE: 2-D and 3-D bafp-an-[id number] and postcontrast MRA of the head, arch, greatvessels, and neck was provided with maximal intensity projection 3-D reconstructions of the arterialvasculature. COMPARISON: None FINDINGS: There is no evidence for a eek of Rudolph proximal branch vessel occlusion. There [...] cervical vertebral artery. No evidence for a eek of Rudolph proximal branch vessel oc clusion. Signed: Mya Mendoza MDReport Verified Date/Time: 12/01/2017 13:28:07 Reading Location: [address] Consult Reading Room MR, MRA, NECK, [id number] 13:28:00FINAL REPORT MRA head, arch, great vessels, and neck CLINICAL HISTORY: RIGHT CAROTID STENOSIS TECHNIQUE: 2-D and 3-D yxwr-ak-qyociz and postcontrast MRA of the head, arch, greatvessels, and neck was provided with maximal intensity projection 3-D reconstructions of the arterialvasculature. COMPARISON: None FINDINGS: There is no evidence for a eek of Rudolph proximal branch vessel occlusion. There is a right posterior communicating artery. No aneurysms are seen. There is long segment narrowing of the proximal right internal carotid artery, greatest 2 cm beyond the carotid b ifurcation, where it measures approximately 80% by NASCET [...] cervical vertebral artery. No evidence for a eek of Rudolph proximal branch vessel occlusion. Signed: Mya Mendoza MDReport Verified Date/Time: 12/01/2017 13:28:07 Reading Location: [facility] [id number] Consult Reading Room [id number] 10:49:00 Test Item Value Reference Range Interpretation Comments POC-CREATININE 0.9 mg/dL 0.6-1.3 [facility]) (test [address] [facility] code = 1859) [facility] 7703 0 POC-EGFR 88 mL/min/1.73M2 ([facility]) (test code = 1860) POCT-GLUCOSE [id number] 11:54:00 Test Item Value Reference Range Interpretation Comments POC-GLUCOSE METER 297 mg/dL 70-110 H TESTED AT [place] [address] ([facility]) (test code = [facility] 1538) [address] POCT-GLUCOSE [id number] 08:49:00 Test Item Value Reference Range Interpretation Comments POC-GLUCOSE METER 250 mg/dL 70-110 H TESTED AT [place] [address] ([facility]) (test code = [facility] 1538) [id number] CBC (HEMOGRAM ONLY)2016-11-08 07:15:00 Test Item Value Reference Range Interpretation Comments WHITE BLOOD CELL COUNT ([facility]) 7.3 K/ L 4.0-10.0 (test code = 775) RED BLOOD CELL COUNT ([facility]) 2.67 M/ L 4.20-5.80 L (test code = 761) HEMOGLOBIN ([facility]) (test code = 8.5 GM/DL 13.0-16.8 L 410) HEMATOCRIT ([facility]) (test code = 24.8 % 40.0-50.0 L 411) MEAN CORPUSCULAR VOLUME ([facility]) 92.9 fL 82.0-98.0 (test code = 753) MEAN CORPUSCULAR HEMOGLOBIN 31.6 pg 27.0-33.0 ([facility]) (test code = 751) MEAN CORPUSCULAR HEMOGLOBIN CONC 34.0 GM/DL 32.0-36.0 (BEAKER) (test code = 752) RED CELL DISTRIBUTION WIDTH 15.7 % 10.3-14.2 H (BEAKER) (test code = 412) PLATELET COUNT (BEAKER) (test 274 K/CU MM 150-430 code = 756) MEAN PLATELET VOLUME (BEAKER) 7.3 fL 6.5-10.5 (test code = 754) NUCLEATED RED BLOOD CELLS 0 /100 WBC 0-0 (BEAKER) (test code = 413) [id number] 06:58:00 Test Item Value Reference Range Interpretation Comments MAGNESIUM (BEAKER) (test code = 2.1 mg/dL 1.6-2.6 627) BASIC METABOLIC [id number] 06:58:00 Test Item Value Reference Range Interpretation Comments SODIUM (BEAKER) 137 meq/L 136-145 (test code = 381) POTASSIUM (BEAKER) 4.2 meq/L 3.5-5.1 (test code = 379) CHLORIDE (BEAKER) 100 meq/L 98-107 (test code = 382) CO2 (BEAKER) (test 28 meq/L 22-29 code = 355) BLOOD UREA NITROGEN 18 mg/dL 7-21 (BEAKER) (test code = 354) CREATININE (BEAKER) 0.83 mg/dL 0.57-1.25 (test code = 358) GLUCOSE RANDOM 234 mg/dL 70-105 H (BEAKER) (test code = 652) CALCIUM (BEAKER) 8.4 mg/dL 8.4-10.2 (test code = 697) EGFR (BEAKER) (test 97 mL/min/1.73 ESTIMA KAILASH GFR IS code = 1092) sq m NOT ACCURATE CREATININE CLEARANCE IN PREDICTING GLOMERULAR FILTRATION RATE . ESTIMATED GFR I S NOT APPLICABLE FOR DIALYSIS PATIEN TS. POCT-GLUCOSE [id number] 21:04:00 Test Item Value Reference Range Interpretation Comments POC-GLUCOSE METER 166 mg/dL 70-110 H TESTED AT [facility] 6720 (BEAKER) (test code = [place] 1538) [id number] POCT-GLUCOSE [id number] 17:37:00 Test Item Value Reference Range Interpretation Comments POC-GLUCOSE METER 153 mg/dL 70-110 H TESTED AT [place] [address] (BEAKER) (test code = [facility] 1538) [id number] POCT-GLUCOSE [id number] 17:04:00 Test Item Value Reference Range Interpretation Comments POC-GLUCOSE METER 106 mg/dL 70-110 TESTED AT [place] [address] (BEAKER) (test code = [facility] Jessica [facility] 1538) [address] POCT-GLUCOSE [id number] 15:06:00 Test Item Value Reference Range Interpretation Comments POC-GLUCOSE METER 76 mg/dL 70-110 TESTED AT [place] [address] (BEAKER) (test code = [facility] Jessica [facility] [address] 1538) POCT-GLUCOSE [id number] 12:32:00 Test Item Value Reference Range Interpretation Comments POC-GLUCOSE METER 156 mg/dL 70-110 H TESTED AT [place] [address] (BEAKER) (test code = [facility] Jessica [facility] 1538) [address] POCT-GLUCOSE [id number] 08:10:00 Test Item Value Reference Range Interpretation Comments POC-GLUCOSE METER 153 mg/dL 70-110 H TESTED AT [place] [address] (BEAKER) (test code = [facility] 1538) [address] URINALYSIS W/ [id number] 07:06:00 Test Item Value Reference Range Interpretation Comments COLOR (BEAKER) (test code = 470) Light Yellow CLARITY (BEAKER) (test code = Clear 469) SPECIFIC GRAVITY UA (BEAKER) 1.005 1.001-1.035 (test code = 468) PH UA (BEAKER) (test code = 467) 5.0 5.0-8.0 PROTEIN UA (BEAKER) (test code = Negative Negative 464) GLUCOSE UA (BEAKER) (test code = Negative Negative 365) KETONES UA (BEAKER) (test code = Negative Negative 371) BILIRUBIN UA (BEAKER) (test code Negative Negative = 462) BLOOD UA (BEAKER) (test code = Negative Negative 461) NITRITE UA (BEAKER) (test code = Negative Negative 465) LEUKOCYTE ESTERASE UA (BEAKER) Small Negative A (test code = 466) UROBILINOGEN UA (BEAKER) (test 0.2 mg/dL 0.2-1.0 code = 463) RBC UA (BEAKER) (test code = < /HPF 519) WBC UA (BEAKER) (test code = 7 /HPF 520) SQUAMOUS EPITHELIAL (BEAKER) 2 /HPF (test code = 516) SOURCE(BEAKER) (test code = 2795) [id number] 04:51:00 Test Item Value Reference Range Interpretation Comments MAGNESIUM (BEAKER) (test code = 1.9 mg/dL 1.6-2.6 627) BASIC METABOLIC [id number] 04:51:00 Test Item Value Reference Range Interpretation Comments SODIUM (BEAKER) 140 meq/L 136-145 (test code = 381) POTASSIUM (BEAKER) 4.0 meq/L 3.5-5.1 (test code = 379) CHLORIDE (BEAKER) 102 meq/L 98-107 (test code = 382) CO2 (BEAKER) (test 31 meq/L 22-29 H code = 355) BLOOD UREA NITROGEN 16 mg/dL 7-21 (BEAKER) (test code = 354) CREATININE (BEAKER) 0.78 mg/dL 0.57-1.25 (test code = 358) GLUCOSE RANDOM 136 mg/dL 70-105 H (BEAKER) (test code = 652) CALCIUM (BEAKER) 8.6 mg/dL 8.4-10.2 (test code = 697) EGFR (BEAKER) (test 105 mL/min/1.73 ESTIM ATED GFR IS code = 1092) sq m NOT ACCURATE CREATININE CLEARANCE IN PREDICTING GLOMERULAR FILTRATION RATE . ESTIMATED GFR I S NOT APPLICABLE FOR DIALYSIS PATIEN TS. CBC (HEMOGRAM ONLY)2016-11-07 04:41:00 Test Item Value Reference Range Interpretation Comments WHITE BLOOD CELL COUNT (BEAKER) 6.9 K/ L 4.0-10.0 (test code = 775) RED BLOOD CELL COUNT (BEAKER) 2.64 M/ L 4.20-5.80 L (test code = 761) HEMOGLOBIN (BEAKER) (test code = 8.3 GM/DL 13.0-16.8 L 410) HEMATOCRIT (BEAKER) (test code = 24.5 % 40.0-50.0 L 411) MEAN CORPUSCULAR VOLUME (BEAKER) 92.6 fL 82.0-98.0 (test code = 753) MEAN CORPUSCULAR HEMOGLOBIN 31.4 pg 27.0-33.0 ([facility]) (test code = 751) MEAN CORPUSCULAR HEMOGLOBIN CONC 33.9 GM/DL 32.0-36.0 ([facility]) (test code = 752) RED CELL DISTRIBUTION WIDTH 14.5 % 10.3-14.2 H ([facility]) (test code = 412) PLATELET COUNT ([facility]) (test 236 K/CU MM 150-430 code = 756) MEAN PLATELET VOLUME (AKER) 7.3 fL 6.5-10.5 (test code = 754) NUCLEATED RED BLOOD CELLS 0 /100 WBC 0-0 ([facility]) (test code = 413) 0.00POCT-GLUCOSE [id number] 21:36:00 Test Item Value Reference Range Interpretation Comments POC-GLUCOSE METER 256 mg/dL 70-110 H TESTED AT [place] [address] ([facility]) (test code = [facility] 1538) [id number] POCT-GLUCOSE [id number] 18:23:00 Test Item Value Reference Range Interpretation Comments POC-GLUCOSE METER 137 mg/dL 70-110 H TESTED AT [place] [address] ([facility]) (test code = [facility] [place] 1538) [address] POCT-GLUCOSE [id number] 17:09:00 Test Item Value Reference Range Interpretation Comments POC-GLUCOSE METER 120 mg/dL 70-110 H TESTED AT [place] [address] ([facility]) (test code = [facility] [place] 1538) [address] POCT-GLUCOSE [id number] 12:21:00 Test Item Value Reference Range Interpretation Comments POC-GLUCOSE METER 129 mg/dL 70-110 H TESTED AT [place] [address] ([facility]) (test code = [facility] Jessica [place] 1538) [id number] CBC (HEMOGRAM ONLY)2016-11-06 08:00:00 Test Item Value Reference Range Interpretation Comments WHITE BLOOD CELL COUNT (AKER) 6.2 K/ L 4.0-10.0 (test code = 775) RED BLOOD CELL COUNT ([facility]) 2.40 M/ L 4.20-5.80 L (test code = 761) HEMOGLOBIN (AKER) (test code = 7.2 GM/DL 13.0-16.8 L 410) HEMATOCRIT (BEAKER) (test code = 22.6 % 40.0-50.0 L 411) MEAN CORPUSCULAR VOLUME (BEAKER) 94.3 fL 82.0-98.0 (test code = 753) MEAN CORPUSCULAR HEMOGLOBIN 30.0 pg 27.0-33.0 (BEAKER) (test code = 751) MEAN CORPUSCULAR HEMOGLOBIN CONC 31.8 GM/DL 32.0-36.0 L (BEAKER) (test code = 752) RED CELL DISTRIBUTION WIDTH 14.5 % 10.3-14.2 H (BEAKER) (test code = 412) PLATELET COUNT (BEAKER) (test 224 K/CU MM 150-430 code = 756) MEAN PLATELET VOLUME (BEAKER) 7.4 fL 6.5-10.5 (test code = 754) NUCLEATED RED BLOOD CELLS 0 /100 WBC 0-0 (BEAKER) (test code = 413) 0.00POCT-GLUCOSE [id number] 07:49:00 Test Item Value Reference Range Interpretation Comments POC-GLUCOSE METER 241 mg/dL 70-110 H TESTED AT [facility] 6720 (BEAKER) (test code = [place] 1538) [address] [id number] 06:49:00 Test Item Value Reference Range Interpretation Comments MAGNESIUM (BEAKER) (test code = 2.0 mg/dL 1.6-2.6 627) BASIC METABOLIC [id number] 06:49:00 Test Item Value Reference Range Interpretation Comments SODIUM (BEAKER) 136 meq/L 136-145 (test code = 381) POTASSIUM (BEAKER) 4.2 meq/L 3.5-5.1 (test code = 379) CHLORIDE (BEAKER) 102 meq/L 98-107 (test code = 382) CO2 (BEAKER) (test 26 meq/L 22-29 code = 355) BLOOD UREA NITROGEN 15 mg/dL 7-21 (BEAKER) (test code = 354) CREATININE (BEAKER) 0.76 mg/dL 0.57-1.25 (test code = 358) GLUCOSE RANDOM 221 mg/dL 70-105 H (BEAKER) (test code = 652) CALCIUM (BEAKER) 8.4 mg/dL 8.4-10.2 (test code = 697) EGFR (BEAKER) (test 108 mL/min/1.73 ESTIM ATED GFR IS code = 1092) sq m NOT ACCURATE CREATININE CLEARANCE IN PREDICTING GLOMERULAR FILTRATION RATE . ESTIMATED GFR I S NOT APPLICABLE FOR DIALYSIS PATIEN TS. POCT-GLUCOSE [id number] 16:44:00 Test Item Value Reference Range Interpretation Comments POC-GLUCOSE METER 144 mg/dL 70-110 H TESTED AT [place] [address] ([facility]) (test code = [facility] 1538) [id number] POCT-GLUCOSE [id number] 15:34:00 Test Item Value Reference Range Interpretation Comments POC-GLUCOSE METER 70 mg/dL 70-110 TESTED AT [place] [address] ([facility]) (test code = [facility] [address] 1538) POCT-GLUCOSE [id number] 15:00:00 Test Item Value Reference Range Interpretation Comments POC-GLUCOSE METER 49 mg/dL 70-110 L TESTED AT [place] [address] ([facility]) (test code = [facility] [address] 1538) POCT-GLUCOSE [id number] 13:01:00 Test Item Value Reference Range Interpretation Comments POC-GLUCOSE METER 202 mg/dL 70-110 H TESTED AT [place] [address] ([facility]) (test code = [facility] 1538) [id number] POCT-GLUCOSE [id number] 08:35:00 Test Item Value Reference Range Interpretation Comments POC-GLUCOSE METER 194 mg/dL 70-110 H TESTED AT [place] [address] ([facility]) (test code = [facility] 1538) [id number] 04:08:00 Test Item Value Reference Range Interpretation Comments MAGNESIUM (BEAKER) (test code = 1.9 mg/dL 1.6-2.6 627) BASIC METABOLIC [id number] 04:08:00 Test Item Value Reference Range Interpretation Comments SODIUM (BEAKER) 137 meq/L 136-145 (test code = 381) POTASSIUM (BEAKER) 3.4 meq/L 3.5-5.1 L (test code = 379) CHLORIDE (BEAKER) 103 meq/L 98-107 (test code = 382) CO2 (BEAKER) (test 26 meq/L 22-29 code = 355) BLOOD UREA NITROGEN 19 mg/dL 7-21 (BEAKER) (test code = 354) CREATININE (BEAKER) 0.71 mg/dL 0.57-1.25 (test code = 358) GLUCOSE RANDOM 75 mg/dL 70-105 (BEAKER) (test code = 652) CALCIUM (BEAKER) 8.6 mg/dL 8.4-10.2 (test code = 697) EGFR (BEAKER) (test 117 mL/min/1.73 ESTIM ATED GFR IS code = 1092) sq m NOT ACCURATE CREATININE CLEARANCE IN PREDICTING GLOMERULAR FILTRATION RATE . ESTIMATED GFR I S NOT APPLICABLE FOR DIALYSIS PATIEN TS. CBC W/PLT COUNT & AUTO [id number] 04:05:00 Test Item Value Reference Range Interpretation Comments WHITE BLOOD CELL COUNT (BEAKER) 6.9 K/ L 4.0-10.0 (test code = 775) RED BLOOD CELL COUNT (BEAKER) 2.36 M/ L 4.20-5.80 L (test code = 761) HEMOGLOBIN (BEAKER) (test code = 7.8 GM/DL 13.0-16.8 L 410) HEMATOCRIT (BEAKER) (test code = 21.7 % 40.0-50.0 L 411) MEAN CORPUSCULAR VOLUME (BEAKER) 91.6 fL 82.0-98.0 (test code = 753) MEAN CORPUSCULAR HEMOGLOBIN 32.9 pg 27.0-33.0 (BEAKER) (test code = 751) MEAN CORPUSCULAR HEMOGLOBIN CONC 35.9 GM/DL 32.0-36.0 (BEAKER) (test code = 752) RED CELL DISTRIBUTION WIDTH 14.7 % 10.3-14.2 H (BEAKER) (test code = 412) PLATELET COUNT (BEAKER) (test 192 K/CU MM 150-430 code = 756) MEAN PLATELET VOLUME (BEAKER) 7.4 fL 6.5-10.5 (test code = 754) NUCLEATED RED BLOOD CELLS 0 /100 WBC 0-0 (BEAKER) (test code = 413) NEUTROPHILS RELATIVE PERCENT 67 % (BEAKER) (test code = 429) LYMPHOCYTES RELATIVE PERCENT 23 % (BEAKER) (test code = 430) MONOCYTES RELATIVE PERCENT 7 % (BEAKER) (test code = 431) EOSINOPHILS RELATIVE PERCENT 4 % (BEAKER) (test code = 432) BASOPHILS RELATIVE PERCENT 1 % (BEAKER) (test code = 437) NEUTROPHILS ABSOLUTE COUNT 4.61 K/ L 1.80-8.00 (BEAKER) (test code = 670) LYMPHOCYTES ABSOLUTE COUNT 1.56 K/ L 1.48-4.50 (BEAKER) (test code = 414) MONOCYTES ABSOLUTE COUNT (BEAKER) 0.46 K/ L 0.00-1.30 (test code = 415) EOSINOPHILS ABSOLUTE COUNT 0.24 K/ L 0.00-0.50 (BEAKER) (test code = 416) BASOPHILS ABSOLUTE COUNT (BEAKER) 0.04 K/ L 0.00-0.20 (test code = 417) 0.00POCT-GLUCOSE [id number] 21:29:00 Test Item Value Reference Range Interpretation Comments POC-GLUCOSE METER 140 mg/dL 70-110 H TESTED AT [place] [address] ([facility]) (test code = MITCHELL Lopez [facility] 1538) [address] POCT-GLUCOSE [id number] 17:57:00 Test Item Value Reference Range Interpretation Comments POC-GLUCOSE METER 237 mg/dL 70-110 H TESTED AT [place] [address] ([facility]) (test code = [facility] Jessica [facility] 1538) [address] TISSUE [id number] 15:18:00Surgical Pathology Report Case: [id number] Authorizing Provider: Jame Hurley MD Collected: 11/01/2016 1102 Ordering Location: [facility] Received: 11/01/2016 1336 PERIOPERATIVE SERVICES Pathologist: Ian Wang MD Specimen: Plaque, RCA PLAQUE HEART, CORONARY ARTERY, RIGHT, ATHERECTOMY:CALCIFIC ATHEROSCLEROTIC PLAQUEElectronically signed by Ian Wang MDon 11/04/2016 at 3:18 [id number]; [id number] plaqueThe specimen is received in saline labeled with the patient's information labeled "RCA plaque" and consists of a calcified tubular-shaped segment of tissue measuring 10.5 cm in length x 0.4 cm in diameter. Representatively submitted A1 for decalcificati on. CG/plPerformedPOCT-GLUCOSE [id number] 12:12:00 Test Item Value Reference Range Interpretation Comments POC-GLUCOSE METER 90 mg/dL 70-110 TESTED AT [facility] 6720 (BEAKER) (test code = [place] [address] 1538) POCT-GLUCOSE [id number] 08:56:00 Test Item Value Reference Range Interpretation Comments POC-GLUCOSE METER 215 mg/dL 70-110 H TESTED AT [facility] 6720 (BEAKER) (test code = MITCHELL Lopez [facility] 1538) [address] [id number] 06:16:00 Test Item Value Reference Range Interpretation Comments MAGNESIUM (BEAKER) (test code = 2.1 mg/dL 1.6-2.6 627) BASIC METABOLIC [id number] 06:16:00 Test Item Value Reference Range Interpretation Comments SODIUM (BEAKER) 136 meq/L 136-145 (test code = 381) POTASSIUM (BEAKER) 3.6 meq/L 3.5-5.1 (test code = 379) CHLORIDE (BEAKER) 102 meq/L 98-107 (test code = 382) CO2 (BEAKER) (test 25 meq/L 22-29 code = 355) BLOOD UREA NITROGEN 29 mg/dL 7-21 H (BEAKER) (test code = 354) CREATININE (BEAKER) 0.89 mg/dL 0.57-1.25 (test code = 358) GLUCOSE RANDOM 123 mg/dL 70-105 H (BEAKER) (test code = 652) CALCIUM (BEAKER) 8.7 mg/dL 8.4-10.2 (test code = 697) EGFR (BEAKER) (test 90 mL/min/1.73 ESTIMA KAILASH GFR IS code = 1092) sq m NOT ACCURATE CREATININE CLEARANCE IN PREDICTING GLOMERULAR FILTRATION RATE . ESTIMATED GFR I S NOT APPLICABLE FOR DIALYSIS PATIEN TS. CBC W/PLT COUNT & AUTO [id number] 05:46:00 Test Item Value Reference Range Interpretation Comments WHITE BLOOD CELL COUNT (BEAKER) 9.1 K/ L 4.0-10.0 (test code = 775) RED BLOOD CELL COUNT (BEAKER) 2.59 M/ L 4.20-5.80 L (test code = 761) HEMOGLOBIN (BEAKER) (test code = 8.2 GM/DL 13.0-16.8 L 410) HEMATOCRIT (BEAKER) (test code = 23.6 % 40.0-50.0 L 411) MEAN CORPUSCULAR VOLUME (BEAKER) 91.4 fL 82.0-98.0 (test code = 753) MEAN CORPUSCULAR HEMOGLOBIN 31.8 pg 27.0-33.0 (BEAKER) (test code = 751) MEAN CORPUSCULAR HEMOGLOBIN CONC 34.7 GM/DL 32.0-36.0 (BEAKER) (test code = 752) RED CELL DISTRIBUTION WIDTH 14.3 % 10.3-14.2 H (BEAKER) (test code = 412) PLATELET COUNT (BEAKER) (test 173 K/CU MM 150-430 code = 756) MEAN PLATELET VOLUME (BEAKER) 8.3 fL 6.5-10.5 (test code = 754) NUCLEATED RED BLOOD CELLS 0 /100 WBC 0-0 (BEAKER) (test code = 413) NEUTROPHILS RELATIVE PERCENT 75 % (BEAKER) (test code = 429) LYMPHOCYTES RELATIVE PERCENT 15 % (BEAKER) (test code = 430) MONOCYTES RELATIVE PERCENT 8 % (BEAKER) (test code = 431) EOSINOPHILS RELATIVE PERCENT 2 % (BEAKER) (test code = 432) BASOPHILS RELATIVE PERCENT 0 % (BEAKER) (test code = 437) NEUTROPHILS ABSOLUTE COUNT 6.79 K/ L 1.80-8.00 (BEAKER) (test code = 670) LYMPHOCYTES ABSOLUTE COUNT 1.38 K/ L 1.48-4.50 L (BEAKER) (test code = 414) MONOCYTES ABSOLUTE COUNT (BEAKER) 0.71 K/ L 0.00-1.30 (test code = 415) EOSINOPHILS ABSOLUTE COUNT 0.20 K/ L 0.00-0.50 (BEAKER) (test code = 416) BASOPHILS ABSOLUTE COUNT (BEAKER) 0.02 K/ L 0.00-0.20 (test code = 417) 0.00POCT-GLUCOSE [id number] 05:03:00 Test Item Value Reference Range Interpretation Comments POC-GLUCOSE METER 142 mg/dL 70-110 H TESTED AT [place] [address] ([facility]) ([facility] 1538) [address] POCT-GLUCOSE [id number] 20:57:00 Test Item Value Reference Range Interpretation Comments POC-GLUCOSE METER 256 mg/dL 70-110 H TESTED AT [facility] 6720 ([facility]) (test code = [facility] 1538) [address] POCT-GLUCOSE [id number] 18:11:00 Test Item Value Reference Range Interpretation Comments POC-GLUCOSE METER 243 mg/dL 70-110 H TEST[facility] AT [place] [address] [facility] (test code = MITCHELL Lopez [facility] 1538) [address] POCT-GLUCOSE [id number] 11:42:00 Test Item Value Reference Range Interpretation Comments POC-GLUCOSE METER 158 mg/dL 70-110 H TESTED AT [place] [address] ([facility] (test code = MITCHELL Lopez [facility] 1538) [address]138 POCT-GLUCOSE [id number] 09:13:00 Test Item Value Reference Range Interpretation Comments POC-GLUCOSE METER 163 mg/dL 70-110 H TESTED AT [place] [address] ([facility]) (test code = MITCHELL Lopez [facility] 1538) [address]139 POCT-GLUCOSE [id number] 09:13:00 Test Item Value Reference Range Interpretation Comments POC-GLUCOSE METER 110 mg/dL 70-110 TESTED AT [place] [address] ([facility]) (test code = MITCHELL Lopez [facility] 1538) [address] POCT-GLUCOSE [id number] 06:04:00 Test Item Value Reference Range Interpretation Comments POC-GLUCOSE METER 131 mg/dL 70-110 H TESTED AT [place] [address] ([facility]) (test code = [facility] Jessica [facility] 1538) [address] [id number] 04:25:00 Test Item Value Reference Range Interpretation Comments MAGNESIUM (BEAKER) (test code = 2.3 mg/dL 1.6-2.6 627) BASIC METABOLIC [id number] 04:25:00 Test Item Value Reference Range Interpretation Comments SODIUM (BEAKER) 136 meq/L 136-145 (test code = 381) POTASSIUM (BEAKER) 4.1 meq/L 3.5-5.1 (test code = 379) CHLORIDE (BEAKER) 105 meq/L 98-107 (test code = 382) CO2 (BEAKER) (test 22 meq/L 22-29 code = 355) BLOOD UREA NITROGEN 27 mg/dL 7-21 H (BEAKER) (test code = 354) CREATININE (BEAKER) 0.87 mg/dL 0.57-1.25 (test code = 358) GLUCOSE RANDOM 155 mg/dL 70-105 H (BEAKER) (test code = 652) CALCIUM (BEAKER) 8.4 mg/dL 8.4-10.2 (test code = 697) EGFR (BEAKER) (test 92 mL/min/1.73 ESTIMA KAILASH GFR IS code = 1092) sq m NOT ACCURATE CREATININE CLEARANCE IN PREDICTING GLOMERULAR FILTRATION RATE . ESTIMATED GFR I S NOT APPLICABLE FOR DIALYSIS PATIEN TS. CBC W/PLT COUNT & AUTO [id number] 04:14:00 Test Item Value Reference Range Interpretation Comments WHITE BLOOD CELL COUNT (BEAKER) 10.9 K/ L 4.0-10.0 H (test code = 775) RED BLOOD CELL COUNT (BEAKER) 2.69 M/ L 4.20-5.80 L (test code = 761) HEMOGLOBIN (BEAKER) (test code = 8.1 GM/DL 13.0-16.8 L 410) HEMATOCRIT (BEAKER) (test code = 24.9 % 40.0-50.0 L 411) MEAN CORPUSCULAR VOLUME (BEAKER) 92.7 fL 82.0-98.0 (test code = 753) MEAN CORPUSCULAR HEMOGLOBIN 30.0 pg 27.0-33.0 (BEAKER) (test code = 751) MEAN CORPUSCULAR HEMOGLOBIN CONC 32.3 GM/DL 32.0-36.0 (BEAKER) (test code = 752) RED CELL DISTRIBUTION WIDTH 13.4 % 10.3-14.2 (BEAKER) (test code = 412) PLATELET COUNT (BEAKER) (test 134 K/CU MM 150-430 L code = 756) MEAN PLATELET VOLUME (BEAKER) 8.0 fL 6.5-10.5 (test code = 754) NUCLEATED RED BLOOD CELLS 0 /100 WBC 0-0 (BEAKER) (test code = 413) NEUTROPHILS RELATIVE PERCENT 80 % (BEAKER) (test code = 429) LYMPHOCYTES RELATIVE PERCENT 12 % (BEAKER) (test code = 430) MONOCYTES RELATIVE PERCENT 8 % (BEAKER) (test code = 431) EOSINOPHILS RELATIVE PERCENT 1 % (BEAKER) (test code = 432) BASOPHILS RELATIVE PERCENT 0 % (BEAKER) (test code = 437) NEUTROPHILS ABSOLUTE COUNT 8.64 K/ L 1.80-8.00 H (BEAKER) (test code = 670) LYMPHOCYTES ABSOLUTE COUNT 1.27 K/ L 1.48-4.50 L (BEAKER) (test code = 414) MONOCYTES ABSOLUTE COUNT (BEAKER) 0.82 K/ L 0.00-1.30 (test code = 415) EOSINOPHILS ABSOLUTE COUNT 0.11 K/ L 0.00-0.50 (BEAKER) (test code = 416) BASOPHILS ABSOLUTE COUNT (BEAKER) 0.02 K/ L 0.00-0.20 (test code = 417) 0.00POCT-GLUCOSE [id number] 03:20:00 Test Item Value Reference Range Interpretation Comments POC-GLUCOSE METER 170 mg/dL 70-110 H TESTED AT [place] [address] ([facility]) (test code = MITCHELL Lopez [facility] 1538) [address] POCT-GLUCOSE [id number] 01:40:00 Test Item Value Reference Range Interpretation Comments POC-GLUCOSE METER 216 mg/dL 70-110 H TESTED AT [place] [address] ([facility]) (test code = MITCHELL Lopez [facility] 1538) [address] POCT-GLUCOSE [id number] 00:08:00 Test Item Value Reference Range Interpretation Comments POC-GLUCOSE METER 227 mg/dL 70-110 H TESTED AT [place] [address] ([facility]) (test code = MITCHELL Lopez [facility] 1538) 85342 POCT-GLUCOSE [id number] 22:37:00 Test Item Value Reference Range Interpretation Comments POC-GLUCOSE METER 262 mg/dL 70-110 H TESTED AT [place] [address] ([facility]) (test code = MITCHELL Lopez [facility] 1538) [address] POCT-GLUCOSE [id number] 20:41:00 Test Item Value Reference Range Interpretation Comments POC-GLUCOSE METER 318 mg/dL 70-110 H Notified R Ed CRISTINA/TESTED ([facility]) (test code = AT [place] [address] [facility]38) [facility] 7[address] 0 POCT-GLUCOSE [id number] 18:55:00 Test Item Value Reference Range Interpretation Comments POC-GLUCOSE METER 363 mg/dL 70-110 H Notified R Ed CRISTINA/TESTED ([facility]) (test code = AT [place] [address] [place] 1538) [facility] 7703 0 POCT-GLUCOSE [id number] 18:03:00 Test Item Value Reference Range Interpretation Comments POC-GLUCOSE METER 408 mg/dL 70-110 HH Notified R Ed MD/TESTED ([facility]) (test code = AT [place] [id number]) [facility] 7703 0 POCT-GLUCOSE [id number] 16:43:00 Test Item Value Reference Range Interpretation Comments POC-GLUCOSE METER 413 mg/dL 70-110 HH Notified R Ed MD/TESTED ([facility]) (test code = AT [place] [address]) [facility] 7703 0 POCT-GLUCOSE [id number] 11:39:00 Test Item Value Reference Range Interpretation Comments POC-GLUCOSE METER 332 mg/dL 70-110 H Notified R Ed MD/TESTED ([facility]) (test code = AT [place] [address]) [facility] 7703 0 POCT-GLUCOSE [id number] 09:06:00 Test Item Value Reference Range Interpretation Comments POC-GLUCOSE METER 173 mg/dL 70-110 H TESTED AT [place] [address] ([facility]) (test code = MITCHELL Lopez [facility] 1538) [address] POCT-GLUCOSE [id number] 07:16:00 Test Item Value Reference Range Interpretation Comments POC-GLUCOSE METER 128 mg/dL 70-110 H TESTED AT [place] [address] ([facility]) (test code = MITCHELL Lopez [facility] 1538) [address] [id number] 05:44:00 Test Item Value Reference Range Interpretation Comments ACTIVATED CLOTTING TIME 121 sec TEST ED AT [place] [address] ([facility]) (test code = EMDARYA Lopez [facility] 441) [address] [id number] 05:44:00 Test Item Value Reference Range Interpretation Comments ACTIVATED CLOTTING TIME 611 sec TEST ED AT [place] [address] ([facility]) (test code = MITCHELL Lopez [facility] 441) [address] [id number] 05:44:00 Test Item Value Reference Range Interpretation Comments ACTIVATED CLOTTING TIME 858 sec TEST ED AT [place] [address] ([facility]) (test code = MITCHELL Lopez [facility] 441) [address] [id number] 05:44:00 Test Item Value Reference Range Interpretation Comments ACTIVATED CLOTTING TIME 554 sec TEST ED AT [place] [address] (BEAKER) (test code = [place] 441) [address] CBC W/PLT COUNT & AUTO [id number] 04:59:00 Test Item Value Reference Range Interpretation Comments WHITE BLOOD CELL COUNT (BEAKER) 8.8 K/ L 4.0-10.0 (test code = 775) RED BLOOD CELL COUNT (BEAKER) 2.91 M/ L 4.20-5.80 L (test code = 761) HEMOGLOBIN (BEAKER) (test code = 9.0 GM/DL 13.0-16.8 L 410) HEMATOCRIT (BEAKER) (test code = 27.1 % 40.0-50.0 L 411) MEAN CORPUSCULAR VOLUME (BEAKER) 92.9 fL 82.0-98.0 (test code = 753) MEAN CORPUSCULAR HEMOGLOBIN 31.0 pg 27.0-33.0 (BEAKER) (test code = 751) MEAN CORPUSCULAR HEMOGLOBIN CONC 33.3 GM/DL 32.0-36.0 (BEAKER) (test code = 752) RED CELL DISTRIBUTION WIDTH 13.2 % 10.3-14.2 (BEAKER) (test code = 412) PLATELET COUNT (BEAKER) (test 134 K/CU MM 150-430 L code = 756) MEAN PLATELET VOLUME (BEAKER) 8.1 fL 6.5-10.5 (test code = 754) NUCLEATED RED BLOOD CELLS 0 /100 WBC 0-0 (BEAKER) (test code = 413) NEUTROPHILS RELATIVE PERCENT 80 % (BEAKER) (test code = 429) LYMPHOCYTES RELATIVE PERCENT 13 % (BEAKER) (test code = 430) MONOCYTES RELATIVE PERCENT 6 % (BEAKER) (test code = 431) EOSINOPHILS RELATIVE PERCENT 0 % (BEAKER) (test code = 432) BASOPHILS RELATIVE PERCENT 0 % (BEAKER) (test code = 437) NEUTROPHILS ABSOLUTE COUNT 7.07 K/ L 1.80-8.00 (BEAKER) (test code = 670) LYMPHOCYTES ABSOLUTE COUNT 1.18 K/ L 1.48-4.50 L (BEAKER) (test code = 414) MONOCYTES ABSOLUTE COUNT (BEAKER) 0.51 K/ L 0.00-1.30 (test code = 415) EOSINOPHILS ABSOLUTE COUNT 0.04 K/ L 0.00-0.50 (BEAKER) (test code = 416) BASOPHILS ABSOLUTE COUNT (BEAKER) 0.01 K/ L 0.00-0.20 (test code = 417) [id number] 04:59:00 Test Item Value Reference Range Interpretation Comments MAGNESIUM (BEAKER) (test code = 2.0 mg/dL 1.6-2.6 627) BASIC METABOLIC [id number] 04:59:00 Test Item Value Reference Range Interpretation Comments SODIUM (BEAKER) 142 meq/L 136-145 (test code = 381) POTASSIUM (BEAKER) 4.6 meq/L 3.5-5.1 (test code = 379) CHLORIDE (BEAKER) 112 meq/L 98-107 H (test code = 382) CO2 (BEAKER) (test 23 meq/L 22-29 code = 355) BLOOD UREA NITROGEN 20 mg/dL 7-21 (BEAKER) (test code = 354) CREATININE (BEAKER) 0.82 mg/dL 0.57-1.25 (test code = 358) GLUCOSE RANDOM 118 mg/dL 70-105 H (BEAKER) (test code = 652) CALCIUM (BEAKER) 8.3 mg/dL 8.4-10.2 L (test code = 697) EGFR (BEAKER) (test 99 mL/min/1.73 ESTIMA KAILASH GFR IS code = 1092) sq m NOT ACCURATE CREATININE CLEARANCE IN PREDICTING GLOMERULAR FILTRATION RATE . ESTIMATED GFR I S NOT APPLICABLE FOR DIALYSIS PATIEN TS. POCT-GLUCOSE [id number] 02:19:00 Test Item Value Reference Range Interpretation Comments POC-GLUCOSE METER 137 mg/dL 70-110 H TESTED AT [facility] 6720 ([facility] (test code = [facility] 1538) [address] POCT-GLUCOSE [id number] 23:33:00 Test Item Value Reference Range Interpretation Comments POC-GLUCOSE METER 118 mg/dL 70-110 H TESTED AT [facility] 6720 ([facility]) (test code = [facility] 1538) 18[address] POCT-GLUCOSE [id number] 19:30:00 Test Item Value Reference Range Interpretation Comments POC-GLUCOSE METER 109 mg/dL 70-110 TESTED AT [place] [id number] ([facility]) (test code = [facility] 1538) [address] POCT-GLUCOSE [id number] 18:24:00 Test Item Value Reference Range Interpretation Comments POC-GLUCOSE METER 101 mg/dL 70-110 TESTED AT [facility] 6720 (BEAKER) (test code = MITCHELL Lopez [facility] 1538) [address] GLUCOSE-STAT [id number] 16:59:00 Test Item Value Reference Range Interpretation Comments GLUCOSE RANDOM (BEAKER) (test code 108 mg/dL 70-110 = 652) HGB/HCT (H&H) - STAT [id number] 16:59:00 Test Item Value Reference Range Interpretation Comments HEMOGLOBIN (BEAKER) (test code = 9.0 g/dL 13.0-16.8 L 410) HEMATOCRIT (BEAKER) (test code = 26.0 % 40.0-50.0 L 411) BLOOD GAS, [id number] 16:59:00 Test Item Value Reference Range Interpretation Comments PH ARTERIAL (BEAKER) (test code = 7.37 7.35-7.45 383) PCO2 ARTERIAL (BEAKER) (test code 42 mmHg 35-45 = 384) PO2 ARTERIAL (BEAKER) (test code 101 mmHg 80-90 H = 385) O2 SATURATION ARTERIAL (BEAKER) 97.5 % 96.0-97.0 H (test code = 386) HCO3 ARTERIAL (BEAKER) (test code 24 mmol/L 21-29 = 388) BASE EXCESS ARTERIAL (BEAKER) -1.7 mmol/L -2.0-3.0 (test code = 387) PATIENT TEMPERATURE (BEAKER) 36.9 C (test code = 1818) FIO2 (BEAKER) (test code = 1819) 36.0 % POCT-GLUCOSE [id number] 15:37:00 Test Item Value Reference Range Interpretation Comments POC-GLUCOSE METER 152 mg/dL 70-110 H TESTED AT [facility] 6720 (BEAKER) (test code = MITCHELL Lopez [facility] 1538) [address] [id number] 15:11:00 Test Item Value Reference Range Interpretation Comments MAGNESIUM (BEAKER) (test code = 2.1 mg/dL 1.6-2.6 627) [id number] 15:10:00 Test Item Value Reference Range Interpretation Comments POTASSIUM (BEAKER) (test code = 4.0 meq/L 3.5-5.1 379) POCT-GLUCOSE [id number] 15:03:00 Test Item Value Reference Range Interpretation Comments POC-GLUCOSE METER 180 mg/dL 70-110 H TESTED AT [facility] 6720 (BEAKER) (test code = [facility] 1538) [address] POCT-GLUCOSE [id number] 13:33:00 Test Item Value Reference Range Interpretation Comments POC-GLUCOSE METER 213 mg/dL 70-110 H TESTED AT [place] [address] ([facility] (test code = [facility] 1538) [address]68 POCT-GLUCOSE [id number] 13:33:00 Test Item Value Reference Range Interpretation Comments POC-GLUCOSE METER 252 mg/dL 70-110 H TESTED AT [place] [address] ([facility] (test code = [facility] 1538) [address] BASIC METABOLIC [id number] 13:30:00 Test Item Value Reference Range Interpretation Comments SODIUM (BEAKER) 136 meq/L 136-145 (test code = 381) POTASSIUM (BEAKER) 4.3 meq/L 3.5-5.1 Specimen slightly (test code = 379) hemolyzed CHLORIDE (BEAKER) 109 meq/L 98-107 H (test code = 382) CO2 (BEAKER) (test 19 meq/L 22-29 L code = 355) BLOOD UREA NITROGEN 22 mg/dL 7-21 H (BEAKER) (test code = 354) CREATININE (BEAKER) 0.92 mg/dL 0.57-1.25 Specimen slightly (test code = 358) hemolyzed GLUCOSE RANDOM 250 mg/dL 70-105 H (BEAKER) (test code = 652) CALCIUM (BEAKER) 7.8 mg/dL 8.4-10.2 L (test code = 697) EGFR (BEAKER) (test 86 mL/min/1.73 ESTIMA KAILASH GFR IS code = 1092) sq m NOT ACCURATE CREATININE CLEARANCE IN PREDICTING GLOMERULAR FILTRATION RATE . ESTIMATED GFR I S NOT APPLICABLE FOR DIALYSIS PATIEN TS. LACTIC ACID, ARTERIAL, WHOLE [id number] 13:01:00 Test Item Value Reference Range Interpretation Comments LACTATE BLOOD 1.4 mmol/L 0.5-2.2 Specimen sligh tly ARTERIAL (2) (BEAKER) hemoly zed (test code = 2874) Effective 10/22/2015: Units/Reference Range ChangeNew: 0.5-2.2 mmol/L Previous: 5-20 mg/dLBLOOD GAS, [id number] 12:31:00 Test Item Value Reference Range Interpretation Comments PH ARTERIAL (BEAKER) (test code = 7.30 7.35-7.45 L 383) PCO2 ARTERIAL (BEAKER) (test code 44 mmHg 35-45 = 384) PO2 ARTERIAL (BEAKER) (test code 222 mmHg 80-90 H = 385) O2 SATURATION ARTERIAL (BEAKER) 99.4 % 96.0-97.0 H (test code = 386) HCO3 ARTERIAL (BEAKER) (test code 21 mmol/L 21-29 = 388) BASE EXCESS ARTERIAL (BEAKER) -5.3 mmol/L -2.0-3.0 L (test code = 387) PATIENT TEMPERATURE (BEAKER) 37.0 C (test code = 1818) FIO2 (BEAKER) (test code = 1819) 60.0 % HGB/HCT (H&H) - STAT [id number] 12:31:00 Test Item Value Reference Range Interpretation Comments HEMOGLOBIN (BEAKER) (test code = 10.2 g/dL 13.0-16.8 L 410) HEMATOCRIT (BEAKER) (test code = 30.0 % 40.0-50.0 L 411) GLUCOSE-STAT [id number] 12:31:00 Test Item Value Reference Range Interpretation Comments GLUCOSE RANDOM (BEAKER) (test code 239 mg/dL 70-110 H = 652) POTASSIUM-STAT [id number] 12:30:00 Test Item Value Reference Range Interpretation Comments POTASSIUM (BEAKER) (test code = 4.1 meq/L 3.6-5.5 379) CBC W/PLT COUNT & AUTO [id number] 12:24:00 Test Item Value Reference Range Interpretation Comments WHITE BLOOD CELL COUNT (BEAKER) 12.6 K/ L 4.0-10.0 H (test code = 775) RED BLOOD CELL COUNT (BEAKER) 3.27 M/ L 4.20-5.80 L (test code = 761) HEMOGLOBIN (BEAKER) (test code = 10.2 GM/DL 13.0-16.8 L 410) HEMATOCRIT (BEAKER) (test code = 29.6 % 40.0-50.0 L 411) MEAN CORPUSCULAR VOLUME (BEAKER) 90.5 fL 82.0-98.0 (test code = 753) MEAN CORPUSCULAR HEMOGLOBIN 31.1 pg 27.0-33.0 (BEAKER) (test code = 751) MEAN CORPUSCULAR HEMOGLOBIN CONC 34.4 GM/DL 32.0-36.0 (BEAKER) (test code = 752) RED CELL DISTRIBUTION WIDTH 14.2 % 10.3-14.2 (BEAKER) (test code = 412) PLATELET COUNT (BEAKER) (test 137 K/CU MM 150-430 L code = 756) MEAN PLATELET VOLUME (BEAKER) 8.1 fL 6.5-10.5 (test code = 754) NUCLEATED RED BLOOD CELLS 0 /100 WBC 0-0 (BEAKER) (test code = 413) NEUTROPHILS RELATIVE PERCENT 85 % (BEAKER) (test code = 429) LYMPHOCYTES RELATIVE PERCENT 13 % (BEAKER) (test code = 430) MONOCYTES RELATIVE PERCENT 2 % (BEAKER) (test code = 431) EOSINOPHILS RELATIVE PERCENT 1 % (BEAKER) (test code = 432) BASOPHILS RELATIVE PERCENT 0 % (BEAKER) (test code = 437) NEUTROPHILS ABSOLUTE COUNT 10.60 K/ L 1.80-8.00 H (BEAKER) (test code = 670) LYMPHOCYTES ABSOLUTE COUNT 1.59 K/ L 1.48-4.50 (BEAKER) (test code = 414) MONOCYTES ABSOLUTE COUNT (BEAKER) 0.27 K/ L 0.00-1.30 (test code = 415) EOSINOPHILS ABSOLUTE COUNT 0.06 K/ L 0.00-0.50 (BEAKER) (test code = 416) BASOPHILS ABSOLUTE COUNT (BEAKER) 0.02 K/ L 0.00-0.20 (test code = 417) [id number] 12:18:00 Test Item Value Reference Range Interpretation Comments FIBRINOGEN LEVEL (BEAKER) (test 279 mg/dl 225-434 code = 658) [id number] 12:18:00 Test Item Value Reference Range Interpretation Comments PARTIAL THROMBOPLASTIN TIME 33.1 seconds 22.5-36.0 (BEAKER) (test code = 760) PROTHROMBIN TIME/[id number] 12:17:00 Test Item Value Reference Range Interpretation Comments PROTIME (BEAKER) (test code = 16.4 seconds 11.7-14.7 H 759) INR (BEAKER) (test code = 370) 1.3 <=5.9 RECOMMENDED COUMADIN/WARFARIN INR THERAPY RANGESSTANDARD DOSE: 2.0 - 3.0 Includes: PROPHYLAXIS forvenous thrombosis, systemic embolization; TREATMENT for venous thrombosis and/or pulmonary embolus.HIGH RISK: Target INR is 2.5-3.5 for patients with mechanical heart valves.OXYGEN SATURATION, [id number] 12:02:00 Test Item Value Reference Range Interpretation Comments O2 SATURATION (MEASURED) (BEAKER) 74.7 % (test code = 1455) CALCIUM, [id number] 11:58:00 Test Item Value Reference Range Interpretation Comments CALCIUM IONIZED (BEAKER) (test 1.17 mmol/L 1.12-1.27 code = 698) PH, BLOOD (BEAKER) (test code = 7.29 1810) THROMBOELASTOGRAPH (TEG)[id number] 11:02:00 Test Item Value Reference Range Interpretation Comments TEG ACTIVATED CLOTTING TIME 4.4 minutes 4.0-7.0 (BEAKER) (test code = 1407) TEG FIBRINOGEN ACTIVITY (BEAKER) 71.9 degrees 61.0-73.0 (test code = 1408) TEG PLT. AGGREGATION (BEAKER) 47.5 MM 55.0-65.0 L (test code = 1409) [facility] ACTIVATED CLOTTING TIME 5.3 minutes 4.0-7.0 (BEAKER) (test code = 1411) [facility] FIBRINOGEN ACTIVITY (BEAKER) 68.1 degrees 61.0-73.0 (test code = 1412) TGH PLT. AGGREGATION (BEAKER) 50.1 MM 55.0-65.0 L (test code = 1413) PLATELET [id number] 10:45:00 Test Item Value Reference Range Interpretation Comments PLATELET COUNT (BEAKER) (test 114 K/CU MM 150-430 L code = 756) BLOOD GAS, [id number] 10:42:00 Test Item Value Reference Range Interpretation Comments PH ARTERIAL (BEAKER) (test code = 7.36 7.35-7.45 383) PCO2 ARTERIAL (BEAKER) (test code 40 mmHg 35-45 = 384) PO2 ARTERIAL (BEAKER) (test code 81 mmHg 80-90 = 385) O2 SATURATION ARTERIAL (BEAKER) 96.5 % 96.0-97.0 (test code = 386) HCO3 ARTERIAL (BEAKER) (test code 23 mmol/L 21-29 = 388) BASE EXCESS ARTERIAL (BEAKER) -3.2 mmol/L -2.0-3.0 L (test code = 387) PATIENT TEMPERATURE (BEAKER) 35.1 C (test code = 1818) FIO2 (BEAKER) (test code = 1819) 40.0 % SODIUM NA-STAT [id number] 10:42:00 Test Item Value Reference Range Interpretation Comments SODIUM (BEAKER) (test code = 381) 132 meq/L 135-148 L GLUCOSE-STAT [id number] 10:42:00 Test Item Value Reference Range Interpretation Comments GLUCOSE RANDOM (BEAKER) (test code 251 mg/dL 70-110 H = 652) HGB/HCT (H&H) - STAT [id number] 10:42:00 Test Item Value Reference Range Interpretation Comments HEMOGLOBIN (BEAKER) (test code = 8.9 g/dL 13.0-16.8 L 410) HEMATOCRIT (BEAKER) (test code = 26.0 % 40.0-50.0 L 411) CALCIUM, [id number] 10:42:00 Test Item Value Reference Range Interpretation Comments CALCIUM IONIZED (BEAKER) (test 0.94 mmol/L 1.12-1.27 L code = 698) PH, BLOOD (BEAKER) (test code = 7.33 1810) POTASSIUM-STAT [id number] 10:41:00 Test Item Value Reference Range Interpretation Comments POTASSIUM (BEAKER) (test code = 4.2 meq/L 3.6-5.5 379) [id number] 10:31:00 Test Item Value Reference Range Interpretation Comments FIBRINOGEN LEVEL (BEAKER) (test 287 mg/dl 225-434 code = 658) [id number] 10:31:00 Test Item Value Reference Range Interpretation Comments PARTIAL THROMBOPLASTIN TIME 36.2 seconds 22.5-36.0 H (BEAKER) (test code = 760) PROTHROMBIN [id number] 10:30:00 Test Item Value Reference Range Interpretation Comments PROTIME (BEAKER) (test code = 18.5 seconds 11.7-14.7 H 759) INR (BEAKER) (test code = 370) 1.6 <=5.9 RECOMMENDED COUMADIN/WARFARIN INR THERAPY RANGESSTANDARD DOSE: 2.0 - 3.0 Includes: PROPHYLAXIS forvenous thrombosis, systemic embolization; TREATMENT for venous thrombosis and/or pulmonary embolus.HIGH RISK: Target INR is 2.5-3.5 for patients with mechanical heart valves.BLOOD GAS, [id number] 10:21:00 Test Item Value Reference Range Interpretation Comments PH ARTERIAL (BEAKER) (test code = 7.30 7.35-7.45 L 383) PCO2 ARTERIAL (BEAKER) (test code 51 mmHg 35-45 H = 384) PO2 ARTERIAL (BEAKER) (test code 241 mmHg 80-90 H = 385) O2 SATURATION ARTERIAL (BEAKER) 99.5 % 96.0-97.0 H (test code = 386) HCO3 ARTERIAL (BEAKER) (test code 25 mmol/L 21-29 = 388) BASE EXCESS ARTERIAL (BEAKER) -2.5 mmol/L -2.0-3.0 L (test code = 387) PATIENT TEMPERATURE (BEAKER) 35.2 C (test code = 1818) FIO2 (BEAKER) (test code = 1819) 70.0 % SODIUM NA-STAT [id number] 10:21:00 Test Item Value Reference Range Interpretation Comments SODIUM (BEAKER) (test code = 381) 130 meq/L 135-148 L GLUCOSE-STAT [id number] 10:21:00 Test Item Value Reference Range Interpretation Comments GLUCOSE RANDOM (BEAKER) (test code 261 mg/dL 70-110 H = 652) HGB/HCT (H&H) - STAT [id number] 10:21:00 Test Item Value Reference Range Interpretation Comments HEMOGLOBIN (BEAKER) (test code = 9.2 g/dL 13.0-16.8 L 410) HEMATOCRIT (BEAKER) (test code = 27.0 % 40.0-50.0 L 411) POTASSIUM-STAT [id number] 10:20:00 Test Item Value Reference Range Interpretation Comments POTASSIUM (BEAKER) (test code = 4.7 meq/L 3.6-5.5 379) CALCIUM, [id number] 10:18:00 Test Item Value Reference Range Interpretation Comments CALCIUM IONIZED (BEAKER) (test 1.12 mmol/L 1.12-1.27 code = 698) PH, BLOOD (BEAKER) (test code = 7.27 1810) POTASSIUM-STAT [id number] 09:54:00 Test Item Value Reference Range Interpretation Comments POTASSIUM (BEAKER) (test code = 4.9 meq/L 3.6-5.5 379) BLOOD GAS, [id number] 09:54:00 Test Item Value Reference Range Interpretation Comments PH ARTERIAL (BEAKER) (test code = 7.33 7.35-7.45 L 383) PCO2 ARTERIAL (BEAKER) (test code 46 mmHg 35-45 H = 384) PO2 ARTERIAL (BEAKER) (test code 269 mmHg 80-90 H = 385) O2 SATURATION ARTERIAL (BEAKER) 99.6 % 96.0-97.0 H (test code = 386) HCO3 ARTERIAL (BEAKER) (test code 24 mmol/L 21-29 = 388) BASE EXCESS ARTERIAL (BEAKER) -2.5 mmol/L -2.0-3.0 L (test code = 387) PATIENT TEMPERATURE (BEAKER) 36.0 C (test code = 1818) FIO2 (BEAKER) (test code = 1819) 70.0 % SODIUM NA-STAT [id number] 09:54:00 Test Item Value Reference Range Interpretation Comments SODIUM (BEAKER) (test code = 381) 130 meq/L 135-148 L GLUCOSE-STAT [id number] 09:54:00 Test Item Value Reference Range Interpretation Comments GLUCOSE RANDOM (BEAKER) (test code 189 mg/dL 70-110 H = 652) HGB/HCT (H&H) - STAT [id number] 09:54:00 Test Item Value Reference Range Interpretation Comments HEMOGLOBIN (BEAKER) (test code = 8.7 g/dL 13.0-16.8 L 410) HEMATOCRIT (BEAKER) (test code = 26.0 % 40.0-50.0 L 411) BLOOD GAS, [id number] 09:34:00 Test Item Value Reference Range Interpretation Comments PH ARTERIAL (BEAKER) (test code = 7.36 7.35-7.45 383) PCO2 ARTERIAL (BEAKER) (test code 42 mmHg 35-45 = 384) PO2 ARTERIAL (BEAKER) (test code 314 mmHg 80-90 H = 385) O2 SATURATION ARTERIAL (BEAKER) 99.7 % 96.0-97.0 H (test code = 386) HCO3 ARTERIAL (BEAKER) (test code 25 mmol/L 21-29 = 388) BASE EXCESS ARTERIAL (BEAKER) -2.3 mmol/L -2.0-3.0 L (test code = 387) PATIENT TEMPERATURE (BEAKER) 31.0 C (test code = 1818) FIO2 (BEAKER) (test code = 1819) 70.0 % SODIUM NA-STAT [id number] 09:34:00 Test Item Value Reference Range Interpretation Comments SODIUM (BEAKER) (test code = 381) 127 meq/L 135-148 L POTASSIUM-STAT [id number] 09:34:00 Test Item Value Reference Range Interpretation Comments POTASSIUM (BEAKER) (test code = 5.5 meq/L 3.6-5.5 379) GLUCOSE-STAT [id number] 09:34:00 Test Item Value Reference Range Interpretation Comments GLUCOSE RANDOM (BEAKER) (test code 177 mg/dL 70-110 H = 652) HGB/HCT (H&H) - STAT [id number] 09:34:00 Test Item Value Reference Range Interpretation Comments HEMOGLOBIN (BEAKER) (test code = 7.9 g/dL 13.0-16.8 L 410) HEMATOCRIT (BEAKER) (test code = 23.0 % 40.0-50.0 L 411) BLOOD GAS, [id number] 09:33:00 Test Item Value Reference Range Interpretation Comments PH VENOUS (BEAKER) (test code = 7.33 7.32-7.42 701) PCO2 VENOUS (BEAKER) (test code = 49 mmHg 41-51 755) PO2 VENOUS (BEAKER) (test code = 44 mmHg 25-40 H 702) O2 SATURATION VENOUS (BEAKER) 89.4 % 40.0-70.0 H (test code = 703) HCO3 VENOUS (BEAKER) (test code = 28 mmol/L 21-29 705) BASE EXCESS VENOUS (BEAKER) (test -0.1 mmol/L -2.0-3.0 code = 704) PATIENT TEMPERATURE (BEAKER) 31.0 C (test code = 1818) FIO2 (BEAKER) (test code = 1819) 70.0 % SODIUM NA-STAT [id number] 08:42:00 Test Item Value Reference Range Interpretation Comments SODIUM (BEAKER) (test code = 381) 135 meq/L 135-148 BLOOD GAS, [id number] 08:42:00 Test Item Value Reference Range Interpretation Comments PH ARTERIAL (BEAKER) (test code = 7.47 7.35-7.45 H 383) PCO2 ARTERIAL (BEAKER) (test code 37 mmHg 35-45 = 384) PO2 ARTERIAL (BEAKER) (test code = 405 mmHg 80-90 H 385) O2 SATURATION ARTERIAL (BEAKER) 99.8 % 96.0-97.0 H (test code = 386) HCO3 ARTERIAL (BEAKER) (test code 27 mmol/L 21-29 = 388) BASE EXCESS ARTERIAL (BEAKER) 2.6 mmol/L -2.0-3.0 (test code = 387) PATIENT TEMPERATURE (BEAKER) (test 36.4 C code = 1818) FIO2 (BEAKER) (test code = 1819) 100.0 % POTASSIUM-STAT [id number] 08:42:00 Test Item Value Reference Range Interpretation Comments POTASSIUM (BEAKER) (test code = 3.3 meq/L 3.6-5.5 L 379) GLUCOSE-STAT [id number] 08:42:00 Test Item Value Reference Range Interpretation Comments GLUCOSE RANDOM (BEAKER) (test code 214 mg/dL 70-110 H = 652) HGB/HCT (H&H) - STAT [id number] 08:42:00 Test Item Value Reference Range Interpretation Comments HEMOGLOBIN (BEAKER) (test code = 13.2 g/dL 13.0-16.8 410) HEMATOCRIT (BEAKER) (test code = 39.0 % 40.0-50.0 L 411) CALCIUM, [id number] 08:42:00 Test Item Value Reference Range Interpretation Comments CALCIUM IONIZED (BEAKER) (test 1.08 mmol/L 1.12-1.27 L code = 698) PH, BLOOD (BEAKER) (test code = 7.46 1810) POCT-GLUCOSE [id number] 06:55:00 Test Item Value Reference Range Interpretation Comments POC-GLUCOSE METER 229 mg/dL 70-110 H TESTED AT [facility] [address] (BEAKER) (test code = [place]) [address] HEMOGLOBIN [id number] 11:00:00 Test Item Value Reference Range Interpretation Comments HEMOGLOBIN A1C (BEAKER) (test code = 15.1 % 4.3-6.1 H 368) BASIC METABOLIC [id number] 10:01:00 Test Item Value Reference Range Interpretation Comments SODIUM (BEAKER) 135 meq/L 136-145 L (test code = 381) POTASSIUM (BEAKER) 4.6 meq/L 3.5-5.1 (test code = 379) CHLORIDE (BEAKER) 100 meq/L 98-107 (test code = 382) CO2 (BEAKER) (test 23 meq/L 22-29 code = 355) BLOOD UREA NITROGEN 19 mg/dL 7-21 (BEAKER) (test code = 354) CREATININE (BEAKER) 1.16 mg/dL 0.57-1.25 (test code = 358) GLUCOSE RANDOM 352 mg/dL 70-105 H (BEAKER) (test code = 652) CALCIUM (BEAKER) 9.9 mg/dL 8.4-10.2 (test code = 697) EGFR (BEAKER) (test 66 mL/min/1.73 ESTIMA KAILASH GFR IS code = 1092) sq m NOT ACCURATE CREATININE CLEARANCE IN PREDICTING GLOMERULAR FILTRATION RATE . ESTIMATED GFR I S NOT APPLICABLE FOR DIALYSIS PATIEN TS. [id number] 09:46:00 Test Item Value Reference Range Interpretation Comments PROTIME (BEAKER) (test code = 12.4 seconds 11.7-14.7 759) INR (BEAKER) (test code = 370) 0.9 <=5.9 PARTIAL THROMBOPLASTIN TIME 27.5 seconds 22.5-36.0 (BEAKER) (test code = 760) RECOMMENDED COUMADIN/WARFARIN INR THERAPY RANGESSTANDARD DOSE: 2.0 - 3.0 Includes: PROPHYLAXIS forvenous thrombosis, systemic embolization; TREATMENT for venous thrombosis and/or pulmonary embolus.HIGH RISK: Target INR is 2.5-3.5 for patients with mechanical heart valves.CBC W/PLT COUNT & AUTO DIFFERENTIAL 2016-10-26 09:40:00 Test Item Value Reference Range Interpretation Comments WHITE BLOOD CELL COUNT (BEAKER) 8.9 K/ L 4.0-10.0 (test code = 775) RED BLOOD CELL COUNT (BEAKER) 5.02 M/ L 4.20-5.80 (test code = 761) HEMOGLOBIN (BEAKER) (test code = 15.2 GM/DL 13.0-16.8 410) HEMATOCRIT (BEAKER) (test code = 46.1 % 40.0-50.0 411) MEAN CORPUSCULAR VOLUME (BEAKER) 91.8 fL 82.0-98.0 (test code = 753) MEAN CORPUSCULAR HEMOGLOBIN 30.3 pg 27.0-33.0 (BEAKER) (test code = 751) MEAN CORPUSCULAR HEMOGLOBIN CONC 33.0 GM/DL 32.0-36.0 (BEAKER) (test code = 752) RED CELL DISTRIBUTION WIDTH 13.4 % 10.3-14.2 (BEAKER) (test code = 412) PLATELET COUNT (BEAKER) (test 219 K/CU MM 150-430 code = 756) MEAN PLATELET VOLUME (BEAKER) 8.8 fL 6.5-10.5 (test code = 754) NUCLEATED RED BLOOD CELLS 0 /100 WBC 0-0 (BEAKER) (test code = 413) NEUTROPHILS RELATIVE PERCENT 68 % (BEAKER) (test code = 429) LYMPHOCYTES RELATIVE PERCENT 25 % (BEAKER) (test code = 430) MONOCYTES RELATIVE PERCENT 4 % (BEAKER) (test code = 431) EOSINOPHILS RELATIVE PERCENT 2 % (BEAKER) (test code = 432) BASOPHILS RELATIVE PERCENT 1 % (BEAKER) (test code = 437) NEUTROPHILS ABSOLUTE COUNT 6.03 K/ L 1.80-8.00 (BEAKER) (test code = 670) LYMPHOCYTES ABSOLUTE COUNT 2.25 K/ L 1.48-4.50 (BEAKER) (test code = 414) MONOCYTES ABSOLUTE COUNT (BEAKER) 0.39 K/ L 0.00-1.30 (test code = 415) EOSINOPHILS ABSOLUTE COUNT 0.14 K/ L 0.00-0.50 (BEAKER) (test code = 416) BASOPHILS ABSOLUTE COUNT (BEAKER) 0.06 K/ L 0.00-0.20 (test code = 417) 0.00
[2020-01-02] MEDS ORDERED: ONDANSETRON 4 MG/2 ML VIAL ONE (13:34)
[2020-01-02] MEDS ORDERED: NA CHLORIDE 0.9% 250 ML ONE (13:45)
[2020-01-02] MEDS ORDERED: MORPHINE 4 MG/ML SYR ONE (14:00)
--- NOTE | 2020-01-02 14:09 | RAD REPORT ---
EXAM DESCRIPTION: CT - Abdomen Pelvis Wo Contrast - 01/02/2020 1:59 pm CLINICAL HISTORY: vomiting Abdominal pain COMPARISON: [facility] Protocol dated 10/04/2018 TECHNIQUE: Axial [address] imaging of the abdomen and pelvis was performed without IV contrast. No IV contrast was given because of allergy, abnormal renal function, patient refusal or physician re quest. No oral contrast. All CT scans are performed using dose optimization technique as appropriate and may include automated exposure control or mA/KV adjustment according to patient size. FINDINGS: Cavitary mass in the left base has not changed in overall size continuing to measure appro ximately 3.2 cm in maximum dimension. The thickened rim or rind has decreased slightly since October 07. The multiple small noncalcified nodules in the posterior left base have not changed. No progressi ve lung base finding. The liver, spleen and pancreas show no suspicious findings on non-contrast imaging. Punctate gallston es layer in the dependent portion of the nondilated gallbladder. No biliary tree dilatation. No hydronephrosis or suspicious renal mass. No significant adrenal finding. Isodense renal masses an d pyelonephritis cannot be excluded in the absence of IV contrast. The urinary bladder is without sig nificant finding. Fluid-filled stomach shows no wall thickening or mass. Rich of the distal esophagus appears thickene d. This is not fully assessed on this study. No dilated large or small bowel. The appendix is normal. No free air, free fluid or inflammatory stranding. No mass or bulky lymphadenopathy. Small bilateral fat filled inguinal hernias are present. Small fat only umbilical hernia present similar to compariso n. No suspicious bony findings. Arterial tree calcifications are present. IMPRESSION: No obstruction, free air or surgically emergent finding. Circumferential wall thickening of the distal esophagus is seen new from the prior study. Esophagitis is possible. Esophagus is not fully assessed on this study. Fluid-filled stomach without evidence for gastric outlet obstruction. No acute GI process identifiabl e. Cholelithiasis without active gallbladder or biliary tree finding identifiable. Cavitary mass and nodularity in the left lung base, as detailed above, stable or slightly improved si nce 2018. Full assessment is limited is the absence of IV contrast.
--- NOTE | 2020-01-02 14:31 | RAD REPORT ---
EXAM DESCRIPTION: RAD - Chest Single View - 01/02/2020 2:22 pm CLINICAL HISTORY: Chest pain;Dyspnea COMPARISON: Portable August 19, 2019, two view chest June 2019 TECHNIQUE: AP portable chest image was obtained 01/02/2020 2:22 pm . FINDINGS: Left apical pleural thickening and left upper lobe parenchymal scarring changes are not cl early different. Patchy opacification at the left base is also not substantially different from prior imaging. Underlying fibrotic changes are present. An acute infiltrative process is not clearly seen. Left hemithorax volume loss again noted. Heart size is upper normal and stable. Sternotomy wires are in place. No acute vascular engorgement. No pneumothorax or pleural effusion. No acute bony abnormality seen. No acute aortic findings suspec gilma. IMPRESSION: Chronic pleural and parenchymal changes are present as detailed. No acute findings compared to recent imaging.
[2020-01-02 14:57] LABS: ALT/SGPT 29 U/L (12-78); AST/SGOT 19 U/L (15-37); Albumin 3.6 g/dL (3.4-5.0); Alkaline Phosphatase 66 U/L (45-117); BUN Blood Urea Nitrogen 36 mg/dL (7-18); Bicarbonate 23 mmol/L (21-32); Bilirubin Direct < 0.1 mg/dL (0-0.2); Bilirubin Total 0.5 mg/dL (0.2-1.0); Lipase 44 U/L (73-393); NT PRO-BNP 1406 pg/mL (<125); Potassium 4.4 mmol/L (3.5-5.1); Sodium Level 139 mmol/L (136-145); Troponin (Emerg Dept Use Only) < 0.02 ng/mL (0.0-0.045)
[2020-01-02 14:58] LABS: Glucose Level 415 mg/dL (74-106)
[2020-01-02] MEDS ORDERED: PROMETHAZINE INJ 25 MG/ML AMP ONE (15:17)
--- NOTE | 2020-01-02 15:21 | ER ---
Nurse's Notes [facility] Name: [place] Gr[place] Jr Age: 54 yrs Sex: Male : 1965 Arrival Date: 01/02/2020 Time: 13:12 Bed 4 Private MD: Diagnosis: Intractable vomiting;Esophagitis;Dehydration Presentation: 01/01 13:13 Chief complaint: EMS states: NAUSEA/VOMITING x2 DAYS WITH SOB. Coronavirus screen: bp Proceed with normal triage. Ebola Screen: No symptoms or risks identified at this time. Initial Sepsis Screen: Does the patient meet any 2 criteria? No. Patient's initial sepsis screen is negative. Does the patient have a suspected source of infection? No. Patient's initial sepsis screen is negative. Risk Assessment: Do you want to hurt yourself or someone else? Patient reports no desire to harm self or others. Onset of symptoms is unknown. Care prior to arrival: Glucose check: 361. 13:13 Method Of Arrival: EMS: [facility] bp 13:13 Acuity: JAIMEE 2 bp Triage Assessment: 13:15 General: Appears distressed, uncomfortable, obese, Behavior is cooperative, appropriate bp for age, anxious. Pain: Denies pain. EENT: No deficits noted. Neuro: Level of Consciousness is awake, alert, obeys commands, Oriented to person, place, time, situation, Appropriate for age. Cardiovascular: No deficits noted. Rhythm is sinus rhythm. Respiratory: Reports shortness of breath at rest Airway is patent Respiratory effort is even, labored, Respiratory pattern is regular, hyperventilation. GI: Reports nausea, vomiting. : No deficits noted. Derm: No deficits noted. Musculoskeletal: No deficits noted. 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 - Social history:: Smoking status: Patient denies any tobacco usage or history of. - Family history:: not pertinent. - Hospitalizations: : No recent hospitalization is reported. Screenin:18 Abuse screen: Denies threats or abuse. Denies injuries from another. Nutritional bp screening: No deficits noted. Tuberculosis screening: No symptoms or risk factors identified. Fall Risk None identified. Assessment: 13:17 General: SEE TRIAGE NOTE. GI: Abdomen is noted to have ascites. bp 13:56 Reassessment: PT TO CT. mt2 16:00 Reassessment: ADMIT INITIATED. VS STABLE ON MONITOR. bp 17:02 Reassessment: ADMIT COMPLETE, REPORT TO MICHAEL IRBY FOR RM 403. bp Vital Signs: 13:13 BP 170 / 80; Pulse 75; Resp 19; Temp 97.8; Pulse Ox 100% ; bp 13:56 BP 166 / 83; Pulse 89; Resp 14; Pulse Ox 100% ; mt2 14:52 BP 170 / 68; Pulse 86; Resp 17; Pulse Ox 98% ; mt2 16:10 BP 171 / 87; Pulse 96; Resp 16; Pulse Ox 99% ; bp ED Course: 13:12 Patient arrived in ED. bp 13:13 Jeffery Agarwal MD is Attending Physician. rn 13:14 Triage completed. bp 13:15 Arm band placed on. bp 13:18 Patient has correct armband on for positive identification. Bed in low position. Call bp light in reach. Side rails up X2. classroom monitor on. Pulse ox on. NIBP on. 13:18 Inserted saline lock: 18 gauge in right antecubital area, using aseptic technique. bp Blood collected. 13:22 Griffin Wiley, RN is Primary Nurse. bp 13:33 Basic Metabolic Panel Sent. 5 13:33 CBC with Diff Sent. 5 13:33 LFT's Sent. 5 13:33 NT PRO-BNP Sent. 5 13:33 Troponin (emerg Dept Use Only) Sent. 5 13:33 Initial lab(s) drawn, by ED staff, sent to lab. 5 13:59 Abdomen In Process Unspecified. EDMS 14:19 XRAY Chest (1 view) In Process Unspecified. EDMS 15:20 Josh Taveras DO is Hospitalizing Provider. rn 17:01 No provider procedures requiring assistance completed. Patient admitted, IV remains in bp place. Administered Medications: 13:26 Drug: Zofran (Ondansetron) 4 mg Route: IVP; Site: right antecubital; bp 13:46 Follow up: Response: Nausea is decreased mt2 13:42 Drug: NS 0.9% 250 ml Route: IV; Rate: bolus; Site: right antecubital; mt2 17:02 Follow up: IV Status: Completed infusion; IV Intake: 250ml bp 13:55 Drug: morphine 4 mg Route: IVP; Site: right antecubital; mt2 14:53 Follow up: Response: Pain is decreased mt2 15:15 Drug: Promethazine 12.5 mg Route: IVP; Site: left antecubital; mt2 15:47 Follow up: Response: No adverse reaction bp 16:00 Drug: Pepcid 20 mg Route: IVP; Site: right antecubital; bp 16:11 Follow up: Response: No adverse reaction bp Intake: 17:02 IV: 250ml; Total: 250ml. bp Outcome: 15:20 Decision to Hospitalize by Provider. rn 17:01 Admitted to Med/surg accompanied by tech, via wheelchair, room 403, with chart, Report bp called to MICHAEL RN 17:01 Condition: stable 17:01 Instructed on the need for admit. 17:21 Patient left the ED. bp Signatures: Dispatcher [employer] EDMS Jefefry Agarwal MD MD rn Martinez, Maria [facility] Griffin Wiley RN RN bp Vanessa Broderick RN RN mt2
--- NOTE | 2020-01-02 15:21 | EDPHYS ---
Physician Documentation [facility] Name: Los Griggs Jr Age: 54 yrs Sex: Male : 1965 Arrival Date: 01/02/2020 Time: 13:12 Bed 4 Private MD: ED Physician Jeffery Agarwal HPI: 01/01 13:45 This 54 yrs old Male presents to ER via EMS with complaints of rn Nausea/Vomiting. 13:45 The patient presents to the emergency department with nausea, vomiting. Onset: The rn symptoms/episode began/occurred yesterday. Possible causes: unknown. The symptoms are aggravated by nothing. The symptoms are alleviated by nothing. Associated signs and symptoms:. Severity of symptoms: At their worst the symptoms were moderate in the emergency department the symptoms are unchanged. The patient has experienced a previous episode. Reports nausea/vomiting since yesterday, no fever, reports + chest pain after started vomiting, and sob. Reports last time had this type of problem ended up being fluid in lungs. Denies diarrhea or sick contacts. . 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 - Social history:: Smoking status: Patient denies any tobacco usage or history of. - Family history:: not pertinent. - Hospitalizations: : No recent hospitalization is reported. ROS: 13:45 Constitutional: Negative for fever, chills, and weight loss, Eyes: Negative for injury, rn pain, redness, and discharge, Neck: Negative for injury, pain, and swelling, Cardiovascular: Negative for palpitations, and edema, Respiratory: Negative for wheezing, and pleuritic chest pain, Abdomen/GI: Negative for abdominal pain, diarrhea, and constipation, MS/Extremity: Negative for injury and deformity, Skin: Negative for injury, rash, and discoloration, Neuro: Negative for headache, weakness, numbness, tingling, and seizure. Exam: 13:45 Constitutional: This is a well developed, well nourished patient who is awake, alert, rn holding emesis bag, throwing up Head/Face: Normocephalic, atraumatic. ENT: dry MM Cardiovascular: Regular rate and rhythm. No pulse deficits. Respiratory: + tachypnea, no retractions Abdomen/GI: soft, non-tender MS/ Extremity: Pulses equal, no cyanosis. Neurovascular intact. Full, normal range of motion. Equal circumference. Neuro: Awake and alert, GCS 15, oriented to person, place, time, and situation. Cranial nerves II-XII grossly intact. Motor strength 5/5 in all extremities. Sensory grossly intact. Cerebellar exam normal Vital Signs: 13:13 BP 170 / 80; Pulse 75; Resp 19; Temp 97.8; Pulse Ox 100% ; bp 13:56 BP 166 / 83; Pulse 89; Resp 14; Pulse Ox 100% ; mt2 14:52 BP 170 / 68; Pulse 86; Resp 17; Pulse Ox 98% ; mt2 16:10 BP 171 / 87; Pulse 96; Resp 16; Pulse Ox 99% ; bp MDM: 13:13 Patient medically screened. rn 15:18 Differential diagnosis: viral gastroenteritis, gastroenteritis, gastritis, esophagitis. rn Data reviewed: vital signs, nurses notes, lab test result(s), radiologic studies, CT scan, plain films, and as a result, I will admit patient. Counseling: I had a detailed discussion with the patient and/or guardian regarding: the historical points, exam findings, and any diagnostic results supporting the discharge/admit diagnosis, lab results, radiology results, the need for further work-up and treatment in the hospital. Response to treatment: There is no appreciated change of the patient's symptoms at this time, and as a result, I will admit patient. Admission orders: after a detailed discussion of the patient's condition and case, the admit orders are written by me. ED course: Pt with intractable vomiting, ct shows possible esophagitis, which would make sense with chest pain and vomiting, creatinine worse than previous, 2/2 volume depletion it seems. Will admit for dehydration, esophagitis, and intractable vomiting. Easy on fluids given hx of chf.. 01/01 13:14 Order name: Basic Metabolic Panel; Complete Time: 15:03 rn 01/01 13:14 Order name: CBC with Diff; Complete Time: 15:03 rn 01/01 13:14 Order name: LFT's; Complete Time: 15:03 rn 01/01 13:14 Order name: NT PRO-BNP; Complete Time: 15:03 rn 01/01 13:14 Order name: Troponin (emerg Dept Use Only); Complete Time: 15:03 rn 01/01 13:14 Order name: Lipase; Complete Time: 15:03 rn 01/01 13:14 Order name: XRAY Chest (1 view); Complete Time: 14:34 rn 01/01 13:58 Order name: Abdomen ; Complete Time: 14:34 EDMS 01/01 14:18 Order name: CREATININE WHOLE BLOOD; Complete Time: 14:34 EDMS 01/01 13:14 Order name: EKG; Complete Time: 13: rn 01/01 13:14 Order name: Cardiac monitoring; Complete Time: 13:23 rn 01/01 13:14 Order name: EKG - Nurse/Tech; Complete Time: 13: rn 01/01 13:14 Order name: IV Saline Lock; Complete Time: 13:23 rn 01/01 13:14 Order name: Labs collected and sent; Complete Time: 13: rn 01/01 13:14 Order name: O2 Per Protocol; Complete Time: 13: rn 01/01 13:14 Order name: O2 Sat Monitoring; Complete Time: 13: rn 01/01 13:39 Order name: Labs - recollect needed: cbc and chemistry recollect; Complete Time: 13:46 eb Administered Medications: 13:26 Drug: Zofran (Ondansetron) 4 mg Route: IVP; Site: right antecubital; bp 13:46 Follow up: Response: Nausea is decreased mt2 13:42 Drug: NS 0.9% 250 ml Route: IV; Rate: bolus; Site: right antecubital; mt2 17:02 Follow up: IV Status: Completed infusion; IV Intake: 250ml bp 13:55 Drug: morphine 4 mg Route: IVP; Site: right antecubital; mt2 14:53 Follow up: Response: Pain is decreased mt2 15:15 Drug: Promethazine 12.5 mg Route: IVP; Site: left antecubital; mt2 15:47 Follow up: Response: No adverse reaction bp 16:00 Drug: Pepcid 20 mg Route: IVP; Site: right antecubital; bp 16:11 Follow up: Response: No adverse reaction bp Disposition: 01/02/20 15:20 Hospitalization ordered by Josh Taveras for Observation. Preliminary diagnosis are Intractable vomiting, Esophagitis, Dehydration. - Bed requested for Telemetry/MedSurg (observation). - Status is Observation. bp - Condition is Stable. - Problem is new. - Symptoms are unchanged. Signatures: Dispatcher [employer] EDMS Deirdre Gee RN RN kl Nieto, Roman, MD MD rn Peltier, Brian, RN RN bp Botello, Elizabeth eb Toscano, Marlene RN RN mt2 Corrections: (The following items were deleted from the chart) 13:58 13:15 Abdomen Pelvis W Con+CT.RAD.BRZ ordered. EDMS EDMS 14:41 13:29 CBC Smear Scan ordered. EDMS EDMS 16:44 15:20 Hospitalization Ordered by Josh Taveras DO for Observation. Preliminary kl diagnosis is Intractable vomiting; Esophagitis; Dehydration. Bed requested for Telemetry/MedSurg (observation). Status is Observation. Condition is Stable. Problem is new. Symptoms are unchanged. rn 16:52 16:44 01/02/2020 15:20 Hospitalization Ordered by Josh Taveras DO for Observation. eb Preliminary diagnosis is Intractable vomiting; Esophagitis; Dehydration. Bed requested for Telemetry/MedSurg (observation). Status is Observation. Condition is Stable. Problem is new. Symptoms are unchanged. kl 17:21 16:52 01/02/2020 15:20 Hospitalization Ordered by Josh Taveras DO for Observation. bp Preliminary diagnosis is Intractable vomiting; Esophagitis; Dehydration. Bed requested for Telemetry/MedSurg (observation). Status is Observation. Condition is Stable. Problem is new. Symptoms are unchanged. eb
[2020-01-02] MEDS ORDERED: FAMOTIDINE 20 MG/2 ML VIAL IV ONE (16:14)
--- NOTE | 2020-01-02 16:21 | P.HP ---
Certification for Inpatient Patient admitted to: Observation With expected LOS: <2 Midnights Patient will require the following post-hospital care: None Practitioner: I am a practitioner with admitting privileges, knowledge of patient current condition, hospital course, and medical plan of care. Services: Services provided to patient in accordance with Admission requirements found in Title 42 Section 412.3 of the Code of Federal Regulations Patient History Date of Service: 01/02/20 Primary Care Provider: Slick Moody NP; Cardiology-Dr. Coe Reason for admission: Nausea and vomiting History of Present Illness: 54-year-old male with history of diabetes, hypertension, hyperlipidemia, systolic CHF, COPD, and MAC. Patient presents to the ER with intractable nausea and vomiting. This started about 2 weeks ago. He apparently ate some hot wings at that time. He noted some nausea with bilious fluid. Slowly the nausea became worse. Yesterday nausea was intractable. He was not able to keep anything down. He denied any melena, vomitus of blood. He also reported some epigastric pain as well. He denied any fever, chills. No respiratory COVID like symptoms. He has been practicing social distancing, wears mask and hand washing. No one in family has tested positive. Last BM 2 days ago. He usually goes every 3 days. No abdominal pain noted. Patient came to the ER for further evaluation. In the ER patient was evaluated. Blood pressure slightly elevated. White count 12, hemoglobin 14. Platelet count 2 th 13. Sodium 138, potassium 4.4. BUN of 36, creatinine 1.8 with a GFR 35. Glucose 415. Troponin unremarkable. Lipase unremarkable. BNP 1400. CT scan reveals no obstruction or free air. No surgical emergent finding noted. Circumferential wall thickening of the distal esophagus is noted. This is new from prior study. Esophagitis is likely. Fluid-filled stomach without evidence of gastric outlet obstruction identified. No acute GI process identified. Cavitary mass in nodularity in the left base appears slightly improved. Patient given multiple rounds of medication for nausea. No relief noted. Patient was admitted for further evaluation and observation. When I saw the patient in the ER, patient appeared dry. Nausea slightly improved. Denies any abdominal pain. No current vomiting at this time. Patient denies taking any blood thinners. Allergies No Known Drug Allergies Allergy (Verified 04/10/19 15:06) Unknown No Known Allergies Allergy (Uncoded 05/09/17 20:12) Unknown Home medications list reviewed: Yes Home Medications: Metoprolol Tartrate [Lopressor*] 25 mg PO BID 04/17/16 Atorvastatin Calcium 40 mg PO BEDTIME 04/03/18 Azithromycin 500 mg PO DAILY 04/03/18 Ethambutol HCl [Myambutol] 1,200 mg PO DAILY 04/03/18 Rifampin [Rifadin] 600 mg PO DAILY 04/03/18 Amoxicillin 1 tab PO TID 12/18/18 Aspirin [Aspir-Low] 81 mg PO DAILY 12/18/18 Fluticasone/Umeclidin/Vilanter [Trelegy Ellipta 100-62.5-25] 1 puff IH DAILY 12/18/18 Gabapentin 300 mg PO NOON 12/18/18 Gabapentin 600 mg PO BEDTIME 12/18/18 Insulin Degludec [Tresiba Flextouch U-200] 64 units SQ DAILY 12/18/18 Atorvastatin Calcium [Lipitor] 40 mg PO BEDTIME #30 tab 12/19/18 Furosemide [Lasix*] 20 mg PO BIDL #30 tab 12/19/18 - Past Medical/Surgical History Diabetic: Yes -: Diabetes mellitus type 2 [id number] -: COPD -: 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 He is - Family History Mother -: Lung disease, Cancer - Social History Smoking Status: Former smoker Alcohol use: No CD- Drugs: No Caffeine use: Yes Place of Residence: Home Review of Systems General: As per HPI Eyes: Unremarkable ENT: Unremarkable Respiratory: Unremarkable Cardiovascular: Unremarkable Gastrointestinal: Nausea, Vomiting, As per HPI (Epigastric pain) Genitourinary: Unremarkable Musculoskeletal: Unremarkable Integumentary: Unremarkable Neurological: Unremarkable Lymphatics: Unremarkable Physical Examination - Physical Exam General: Alert, In no apparent distress, Oriented x3, Cooperative HEENT: Atraumatic, Normocephalic, Other (Dry mucous membranes) Neck: Supple Respiratory: Clear to auscultation bilaterally, Normal air movement Cardiovascular: Normal pulses, Regular rate/rhythm Gastrointestinal: Normal bowel sounds, Soft and benign, Non-distended, No tenderness, No masses, No rebound, No guarding Musculoskeletal: No erythema, No tenderness, No warmth Integumentary: No tenderness/swelling, No erythema, No warmth, No cyanosis Neurological: Normal speech, Normal strength at 5/5 x4 extr, Normal tone, Normal affect - Studies Laboratory Data (last 24 hrs) 01/02/20 13:53: Sodium 139, Potassium 4.4, BUN 36 H, Creatinine 1.80 H, Glucose 415 H*, Total Bilirubin 0.5, AST 19, ALT 29, Alkaline Phosphatase 66, Lipase 44 L 01/02/20 13:20: WBC 12.0 H, Hgb 14.4, Hct 43.1, Plt Count 213 Assessment and Plan - Plan Impression: Intractable nausea and vomiting with epigastric pain secondary to acute esophagitis Acute on chronic renal disease stage III likely from dehydration Diabetes mellitus type 2 insulin-dependent with hyperglycemia Hypertension Hyperlipidemia Chronic systolic CHF with prior echocardiogram around 30% COPD History of MAC on current treatment CAD/CABG with peripheral vascular disease and carotid arterial disease Prior tobacco use Plan: Intractable nausea and vomiting with epigastric pain secondary to acute esophagitis: Patient will be admitted for further evaluation and treatment. Will keep the patient on clear liquids at this time. Patient with slight improvement in nausea. CT scan reveals esophagitis. Will start Protonix IV twice daily. Will provide medication for nausea. Patient appears dry. Will start IV fluids but monitor closely as the patient has a history of CHF. Will discuss case with GI. If his condition continues to worsen patient may require EGD to for further evaluation. No bleeding identified. Will monitor closely. Patient will be tested for COVID. Will obtain home medication. Will start DVT prophylaxis. Anticipate improvement over the next 24 hr. Acute on chronic renal disease stage III likely from dehydration: Will start IV fluids. Will monitor closely. Diabetes mellitus type 2 insulin-dependent with hyperglycemia: Will monitor Accu-Cheks. Will provide sliding scale. Will start basal insulin. Hypertension: Will provide medication IV. Will obtain and restart home medication. Hyperlipidemia: Obtain and restart home medication. Chronic systolic CHF with prior echocardiogram around 30%: Will provide Lasix a s the patient is a history of congestive heart failure. Patient also takes Entresto. This medication was recently increased. COPD: Will provide medication. Maintain sats above 93%. History of MAC on current treatment: Will need to obtain home medication and restart. CT scan reveals some improvement. Prior tobacco use: Patient has not smoked in years. CAD/CABG with peripheral vascular disease and carotid arterial disease: Will review and restart home medication. Discharge Plan: Home Plan to discharge in: 24 Hours - Advance Directives Does patient have a Living Will: No Does patient have a Durable POA for Healthcare: No - Code Status/Comfort Care Code Status Assessed: Yes (Patient is full code) Time Spent Managing Pts Care (In Minutes): 55
[2020-01-02] MEDS ORDERED: MORPHINE 2 MG/ML SYR IV PRN (17:06)
[2020-01-02] MEDS ORDERED: ACETAMINOPHEN 500 MG TAB PO PRN (17:06)
[2020-01-02] MEDS ORDERED: SODIUM CHLORIDE 0.9% 10ML INJ IV PRN (17:06)
[2020-01-02] MEDS ORDERED: ONDANSETRON 4 MG/2 ML VIAL IV PRN (17:06)
[2020-01-02] MEDS ORDERED: GLUCAGON 1 MG/VIAL IM PRN (17:06)
[2020-01-02] MEDS ORDERED: D50W 25 GM/50 ML SYRINGE/VIAL IV PRN (17:06)
[2020-01-02] MEDS ORDERED: METOPROLOL TARTRATE 5 MG/5 ML INJ IV PRN (17:06)
[2020-01-02] MEDS ORDERED: HYDROCODONE/APAP 7.5/325 MG TAB PO PRN (17:06)
[2020-01-02] MEDS ORDERED: ALBUTEROL INHALER 60 PUFF/8 GM IH PRN (17:06)
[2020-01-02] MEDS ORDERED: TRAMADOL HCL 50 MG TAB PO PRN (17:06)
[2020-01-02] MEDS: INSULIN -REGULAR HUMAN 50 UNIT/0.5 ML ML SQ SCH ×2 (17:46→21:44)
[2020-01-02] MEDS: NA CHLORIDE 0.9% 1,000 ML IV SCH (17:47)
[2020-01-02] MEDS: PANTOPRAZOLE 40 MG INJ IVP SCH (17:57)
[2020-01-02 18:42] VITALS: BMI 33.0
[2020-01-02] MEDS ORDERED: INSULIN GLARGINE 100 UNITS/ML SQ SCH (21:00)
[2020-01-02] MEDS: DULERA 100/5 (MOMETASONE/FORMOTEROL) INHALER IH SCH (21:00)
[2020-01-02] MEDS: HEPARIN 5000 UNIT/ML 1 ML VIAL SQ SCH ×2 (21:41→21:48)
[2020-01-02] MEDS: SACUBITRIL/VALSARTAN 24/26 MG TAB PO SCH (22:35)
[2020-01-02] MEDS: FUROSEMIDE 20 MG TABLET PO SCH (22:36)
[2020-01-02] MEDS: PROMETHAZINE INJ 25 MG/ML AMP IV PRN (22:37)
[2020-01-02] MEDS: MORPHINE 2 MG/ML SYR IV PRN (22:37)
[2020-01-03] MEDS: PROMETHAZINE INJ 25 MG/ML AMP IV PRN ×4 (03:16→16:51)
[2020-01-03] MEDS: MORPHINE 2 MG/ML SYR IV PRN ×3 (03:17→12:46)
[2020-01-03 04:45] LABS: Absolute Lymphocytes (CBC) 1.7 K/uL (0.7-4.9); Basophils % 1.3 % (0-1.3); Hematocrit 40.3 % (39.6-49.0); Lymphocytes % 13.8 % (15.3-44.8); MPV 9.9 fL (7.6-11.3); RBC Red Blood Cell Count 4.41 M/uL (4.33-5.43)
[2020-01-03 05:05] LABS: Magnesium 2.4 mg/dL (1.8-2.4)
[2020-01-03 05:28] VITALS: O2SAT 96
--- NOTE | 2020-01-03 07:24 | EKG ---
Test Date: 2020-01-02 Test Time: 13:20:29 Analytics Consultant: TORI Lopez MEASUREMENT RESULTS: Intervals: Rate: 91 PA: 166 QRSD: 100 QT: 424 QTc: 521 Ord: P: 55 PA: 166 QRS: 24 T: 90 INTERPRETIVE STATEMENTS: Sinus rhythm with frequent premature ventricular complexes Possible Left atrial enlargement Nonspecific ST and T wave abnormality Prolonged QT Abnormal ECG Compared to ECG 08/19/2019 17:31:40 ST (T wave) deviation now present Left ventricular hypertrophy no longer present Myocardial infarct finding no longer present Electronically Signed On 01-03-20 07:23:04 CDT by Parvez Coe
[2020-01-03] MEDS: INSULIN -REGULAR HUMAN 50 UNIT/0.5 ML ML SQ SCH ×2 (07:30→12:46)
[2020-01-03] MEDS: SACUBITRIL/VALSARTAN 24/26 MG TAB PO SCH (08:53)
[2020-01-03] MEDS: DULERA 100/5 (MOMETASONE/FORMOTEROL) INHALER IH SCH (08:53)
[2020-01-03] MEDS: FUROSEMIDE 20 MG TABLET PO SCH (08:53)
[2020-01-03] MEDS: PANTOPRAZOLE 40 MG INJ IVP SCH (08:54)
[2020-01-03] MEDS: HEPARIN 5000 UNIT/ML 1 ML VIAL SQ SCH (08:54)
[2020-01-03] MEDS: NA CHLORIDE 0.9% 1,000 ML IV SCH (12:58)
[2020-01-03 14:21] VITALS: BP 144/84; TEMP 97.9
--- NOTE | 2020-01-03 16:05 | P.DS ---
Admission Date: 01/02/20 Discharge Date: 01/03/20 Primary Care Provider: Slick Moody NP; Cardiology-Dr. Coe Disposition: ROUTINE DISCHARGE Discharge Condition: GOOD Reason for Admission: Nausea and vomiting Consultations: GI-Dr. Taylor Procedures: CT scan: FINDINGS: Cavitary mass in the left base has not changed in overall size continuing to measure approximately 3.2 cm in maximum dimension. The thickened rim or rind has decreased slightly since September 2018. The multiple small noncalcified nodules in the posterior left base have not changed. No progressive lung base finding. The liver, spleen and pancreas show no suspicious findings on non-contrast imaging. Punctate gallstones layer in the dependent portion of the nondilated gallbladder. No biliary tree dilatation. No hydronephrosis or suspicious renal mass. No significant adrenal finding. Isodense renal masses and pyelonephritis cannot be excluded in the absence of IV contrast. The urinary bladder is without significant finding. Fluid-filled stomach shows no wall thickening or mass. Rich of the distal esophagus appears thickened. This is not fully assessed on this study. No dilat ed large or small bowel. The appendix is normal. No free air, free fluid or inflammatory stranding. No mass or bulky lymphadenopathy. Small bilateral fat filled inguinal hernias are present. Small fat only umbilical hernia present similar to comparison. No suspicious bony findings. Arterial tree calcifications are present. IMPRESSION: No obstruction, free air or surgically emergent finding. Circumferential wall thickening of the distal esophagus is seen new from the prior study. Esophagitis is possible. Esophagus is not fully assessed on this study. Fluid-filled stomach without evidence for gastric outlet obstruction. No acute GI process identifiable. Cholelithiasis without active gallbladder or biliary tree finding identifiable. Cavitary mass and nodularity in the left lung base, as detailed above, stable or slightly improved since 2019. 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 Patient presents to the ER with intractable nausea and vomiting. This started about 2 weeks ago. He apparently ate some hot wings at that time. He noted some nausea with bilious fluid. Slowly the nausea became worse. Yesterday nausea was intractable. He was not able to keep anything down. He denied any melena, vomitus of blood. He also reported some epigastric pain as well. He denied any fever, chills. No respiratory COVID like symptoms. He has been practicing social distancing, wears mask and hand washing. No one in family has tested positive. Last BM 2 days ago. He usually goes every 3 days. No abdominal pain noted. Patient came to the ER for further evaluation. In the ER patient was evaluated. Blood pressure slightly elevated. White count 12, hemoglobin 14. Platelet count 2 13. Sodium 138, potassium 4.4. BUN of 36, creatinine 1.8 with a GFR 35. Glucose 415. Troponin unremarkable. Lipase unremarkable. BNP 1400. CT scan reveals no obstruction or free air. No surgical emergent finding noted. Circumferential wall thickening of the distal esophagus is noted. This is new from prior study. Esophagitis is likely. Fluid-filled stomach without evidence of gastric outlet obstruction identified. No acute GI process identified. Cavitary mass in nodularity in the left base appears slightly improved. Patient given multiple rounds of medication for nausea. No relief noted. Patient was admitted for further evaluation and observation. When I saw the patient in the ER, patient appeared dry. Nausea slightly improved. Denies any abdominal pain. No current vomiting at this time. Patient denies taking any blood thinners. Hospital Course: Patient presented with intractable nausea and vomiting along with epigastric pain secondary to acute esophagitis. CT scan revealed confirmed esophagitis. Patient was admitted for further evaluation due to intractable nausea and vomiting. The patient was started on IV Protonix twice daily. GI was consulted. His diet was advanced slowly to a full liquid diet. Patient tolerated this well. GI recommends to continue all a full liquid diet at this time. Patient will follow up with GI in the next 2-3 days for outpatient endoscopy and colonoscopy to further evaluate. At discharge patient will continue with Protonix 40 mg 1 pill twice daily. Education on esophagitis provided. Patient with acute on chronic renal disease stage III likely from dehydration. Patient was given IV fluids with improvement. His Lasix was held today. At discharge patient may continue with current medication. Recommend to recheck lab-BMP in 1-2 weeks to monitors progress. Patient with diabetes mellitus type 2 insulin dependent. At discharge patient will continue with his current medication of Tresiba 64 units daily. Recommend to maintain blood sugar less than 140 fasting and less than 200 after meals. Further adjustment can be done by his PCP. Patient with chronic systolic CHF with prior echo showing a EF of 30%. Patient has done well. Lasix was held due to intractable nausea and vomiting. At discharge he may continue with his Lasix 20 mg twice daily. Recommend to continue 1500 cc per day fluid restriction. Continue to monitor his weight daily. Patient also takes Entresto. this was recently adjusted by Cardiology. Patient will continue with Entresto as directed. Recommend to recheck lab-BMP to monitor his progress on this medication. Patient with COPD. At discharge he will continue with his current medications including Trelegy 1 puff daily. Patient with history of MAC. Patient will continue with his current medications including Amoxcillin 500 mg 3 times a day, Zithromax 500 mg daily, Ethambutol 1200 mg daily, and rifampin 600 mg daily. Recommend follow up with pulmonology to further monitor and address. Patient with hypertension. At discharge patient will continue with his medication of metoprolol 25 mg 1 pill twice daily. Patient also takes aspirin 81 mg daily. Vital Signs/Physical Exam: Temp Pulse Resp BP Pulse Ox 97.9 F 95 H 16 144/84 H 94 01/03/20 12:00 01/03/20 12:00 01/03/20 12:00 01/03/20 12:00 01/03/20 12:00 General: Alert, In no apparent distress, Oriented x3, Cooperative HEENT: Atraumatic Neck: Supple Respiratory: Clear to auscultation bilaterally, Normal air movement Cardiovascular: Normal pulses, Regular rate/rhythm Gastrointestinal: Normal bowel sounds, Soft and benign, Non-distended, No tenderness, No masses, No rebound, No guarding Musculoskeletal: No erythema, No tenderness, No warmth Integumentary: No tenderness/swelling, No erythema, No warmth, No cyanosis Neurological: Normal speech, Normal strength at 5/5 x4 extr, Normal tone, Normal affect Laboratory Data at Discharge: WBC 12.3 K/uL (4.3-10.9) H 01/03/20 04:30 Hgb 13.5 g/dL (13.6-17.9) L 01/03/20 04:30 Hct 40.3 % (39.6-49.0) 01/03/20 04:30 Plt Count 169 K/uL (152-406) D 01/03/20 04:30 Sodium 142 mmol/L (136-145) 01/03/20 04:30 Potassium 4.0 mmol/L (3.5-5.1) 01/03/20 04:30 BUN 37 mg/dL (7-18) H 01/03/20 04:30 Creatinine 1.33 mg/dL (0.55-1.3) H 01/03/20 04:30 Glucose 243 mg/dL (74-106) H 01/03/20 04:30 Magnesium 2.4 mg/dL (1.8-2.4) 01/03/20 04:30 Total Bilirubin 0.5 mg/dL (0.2-1.0) 01/02/20 13:53 AST 19 U/L (15-37) 01/02/20 13:53 ALT 29 U/L (12-78) 01/02/20 13:53 Alkaline Phosphatase 66 U/L (45-117) 01/02/20 13:53 Lipase 44 U/L (73-393) L 01/02/20 13:53 Home Medications: Metoprolol Tartrate [Lopressor*] 25 mg PO BID 04/17/16 Atorvastatin Calcium 40 mg PO BEDTIME 04/03/18 Azithromycin 500 mg PO DAILY 04/03/18 Ethambutol HCl [Myambutol] 1,200 mg PO DAILY 04/03/18 Rifampin [Rifadin] 600 mg PO DAILY 04/03/18 Amoxicillin 1 tab PO TID 12/18/18 Aspirin [Aspir-Low] 81 mg PO DAILY 12/18/18 Fluticasone/Umeclidin/Vilanter [Trelegy Ellipta 100-62.5-25] 1 puff IH DAILY 12/18/18 Gabapentin 300 mg PO NOON 12/18/18 Gabapentin 600 mg PO BEDTIME 12/18/18 Insulin Degludec [Tresiba Flextouch U-200] 64 units SQ DAILY 12/18/18 Atorvastatin Calcium [Lipitor] 40 mg PO BEDTIME #30 tab 12/19/18 Furosemide [Lasix*] 20 mg PO BIDL #30 tab 12/19/18 Pantoprazole [Protonix Tab] 40 mg PO BID #60 tab 01/03/20 New Medications: Pantoprazole [Protonix Tab] 40 mg PO BID #60 tab Patient Discharge Instructions: 1. Recommend follow up with GI in the next several days to further address his esophagitis. Recommend follow up with PCP in 1 week. 2. Patient presented with intractable nausea and vomiting along with epigastric pain secondary to acute esophagitis. CT scan revealed confirmed esophagitis. Patient was admitted for further evaluation due to intractable nausea and vomiting. The patient was started on IV Protonix twice daily. GI was consulted. His diet was advanced slowly to a full liquid diet. Patient tolerated this well. GI recommends to continue all a full liquid diet at this time. Patient will follow up with GI in the next 2-3 days for outpatient endoscopy and colonoscopy to further evaluate. At discharge patient will continue with Protonix 40 mg 1 pill twice daily. Education on esophagitis provided. 3. Patient with acute on chronic renal disease stage III likely from dehydration. Patient was given IV fluids with improvement. His Lasix was held today. At discharge patient may continue with current medication. Recommend to recheck lab-BMP in 1-2 weeks to monitors progress. 4. Patient with diabetes mellitus type 2 insulin dependent. At discharge patient will continue with his current medication of Tresiba 64 units daily. Recommend to maintain blood sugar less than 140 fasting and less than 200 after meals. Further adjustment can be done by his PCP. 5. Patient with chronic systolic CHF with prior echo showing a EF of 30%. Patient has done well. Lasix was held due to intractable nausea and vomiting. At discharge he may continue with his Lasix 20 mg twice daily. Recommend to continue 1500 cc per day fluid restriction. Continue to monitor his weight daily. Patient also takes Entresto. this was recently adjusted by Cardiology. Patient will continue with Entresto as directed. Recommend to recheck lab-BMP to monitor his progress on this medication. 6. Patient with COPD. At discharge he will continue with his current medications including Trelegy 1 puff daily. 7. Patient with history of MAC. Patient will continue with his current medications including Amoxcillin 500 mg 3 times a day, Zithromax 500 mg daily, Ethambutol 1200 mg daily, and rifampin 600 mg daily. Recommend follow up with pulmonology to further monitor and address. 8. Patient with hypertension. At discharge patient will continue with his medication of metoprolol 25 mg 1 pill twice daily. Patient also takes aspirin 81 mg daily. Diet: Full liquid then advance to soft GI Activity: Ad giorgi Time spent managing pt's care (in minutes): 55
== END 2020-01-03 17:47 | disposition home or self-care (01) ==
LOC: ER 13:08 → ERHOLD 16:07 → 4TH 17:02
PROVIDERS: ADMIT Family Medicine; ATTEND Family Medicine
DX: R11.2 Nausea with vomiting, unspecified (principal); K20.9 Esophagitis, unspecified; E86.0 Dehydration; E11.65 Type 2 diabetes mellitus with hyperglycemia; E11.22 Type 2 diabetes mellitus with diabetic chronic kidney disease; I13.0 Hypertensive heart and chronic kidney disease with heart failure and stage 1 through stage 4 chronic kidney disease, or unspecified chronic kidney disease; N17.9 Acute kidney failure, unspecified; N18.3 Chronic kidney disease, stage 3 (moderate); I50.22 Chronic systolic (congestive) heart failure; E11.51 Type 2 diabetes mellitus with diabetic peripheral angiopathy without gangrene; E78.5 Hyperlipidemia, unspecified; J44.9 Chronic obstructive pulmonary disease, unspecified; I25.10 Atherosclerotic heart disease of native coronary artery without angina pectoris; I77.89 Other specified disorders of arteries and arterioles; Z11.59 Encounter for screening for other viral diseases; R91.8 Other nonspecific abnormal finding of lung field; K80.20 Calculus of gallbladder without cholecystitis without obstruction; I49.3 Ventricular premature depolarization; R94.31 Abnormal electrocardiogram [ECG] [EKG]; Z79.2 Long term (current) use of antibiotics; Z79.4 Long term (current) use of insulin; Z79.82 Long term (current) use of aspirin; Z79.51 Long term (current) use of inhaled steroids; Z79.899 Other long term (current) drug therapy; Z95.1 Presence of aortocoronary bypass graft; Z87.891 Personal history of nicotine dependence
CPT/HCPCS: 96361; 93005; 85025 ×2; 80048 ×2; 36415; 83735; 82565; 82947 ×4; 80076; 84484; 83690; 83880; 74176; 71045; 96375; 96374; 99285; U0002; J2550 ×6; J1644 ×2; C9113 ×2; J2270 ×5; J7050; J7030; J2405; G0378 ×3; J1815; J7606

== ENCOUNTER 2020-11-22 17:40 | Emergency (ER) | payer OTHER ==
--- OUTSIDE RECORDS SUMMARY | 2020-11-22 17:46 | XMS REPORT | Continuity of Care Document ---
:1965 Author Organization [facility] t Address [address] [place] [address] Care Team Providers Name Role Phone Pcp Primary Care Physician Unavailable Edilberto Jean MD Attending Clinician EDILBERTO JEAN Attending Clinician Unavailable Constance IRBY, N Attending Clinician Unavailable Ted CRISTINA, E Attending Clinician Jarad CRISTINA Attending Clinician CRIS HURLEY Attending Clinician Unavailable EDILBERTO JEAN Admitting Clinician Unavailable CRIS HURLEY Admitting Clinician Unavailable Payers Payer Name Policy Type Policy Effective Date Expiration Date Sour ce Number MEDICAREMEDICARE A [id number] 2016 NICOLETTE Peraza [id number] 2015- 00:00:00 - Medical PresentMedicare Center MEDICAIDMEDICAID OF [id number] 2018 NICOLETTE Peraza [id number] 00:00:[address] Problems Condition Condition Condition Status Onset Resolution Last Treating Co mments Source Name Details Category Date Date Treatment Clinician Date Coronary Coronary Disease [facility]25 Annita kes - rosis of rosis of 00:00: Medica l mentasta mentasta 00 Center coronary coronary artery artery Postsurgic Postsurgic Disease Active [facility] al -25 [facility] - aortocoron aortocoron 00:00: Me oriana nadia bypass nadia bypass 00 Ce nter status status Stented Stented Disease Active [facility] coronary coronary - [facility] - artery artery 00:00: Medical 00 Center Subclavian Subclavian Disease Active [facility] artery artery 09-24 [facility] - stenosis, stenosis, 00:00: Medi little left left 00 Center Bilateral Bilateral Disease Active [facility] claudicati claudicati - Annita kes - on of on of 00:00: Medical lower limb lower limb 00 Ce nter Diabetes Diabetes Disease Active [facility] mellitus mellitus 09-23 [facility] - 00:[facility]: Medical 00 Center Chronic Chronic Disease Active [facility] combined combined 09-23 [facility] - systolic systolic 00:00: Medica l and and 00 Center diastolic diastolic CHF, NYHA CHF, NYHA class 2 class 2 and and ACC/AHA ACC/AHA stage C stage C 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 4-04 [facility] - complex complex 00:00: Medical 00 Center S/P CABG x S/P CABG x Disease Active [facility] 3-CABG 3-CABG 4-04 [facility] - 11/01/16 by 11/01/16 by 00:00: Vt oriana Hurley 00 Center :SVG to :SVG to RCA-Crux; RCA-Crux; OM-1; OM-1; CEBALLOS-LAD CEBALLOS-LAD CAITY stent CAITY stent Disease Active [facility] 2018 12-06 [facility] - 00:00: Medical 00 Center Bilateral Bilateral Disease Active [facility] carotid carotid 6-16 [facility] - artery artery 00:00: Medical disease disease 00 [facility] RICAS on RICAS on 12/06/17 12/06/17 Coronary Coronary Disease Active [facility] artery artery 5-10 [facility] - disease disease 00:00: Medical involving involving 00 Cent er mentasta mentasta coronary coronary artery of artery of mentasta mentasta heart heart without without angina angina pectoris pectoris S/P S/P Disease Active [facility] coronary coronary 5-10 [facility] - artery artery 00:00: Medical stent stent 00 Center placement placement Essential Essential Disease Active [facility] hypertensi hypertensi 5-10 Annita kes - on on 00:00: Medical 00 [facility] COPD COPD Disease Active [facility] (chronic (chronic 5-10 [facility] - obstructiv obstructiv 00:00: Vt dical e e 00 [facility] pulmonary pulmonary disease) disease) Current Current Disease Active [facility] every day every day 5-10 [facility] - smoker smoker 00:00: Medical 00 [facility] Allergies, Adverse Reactions, Alerts Allergy Allergy Status Severity Reaction(s) Onset Inactive Treating Comm ents Source Name Type Date Date Clinician No Known DA Active [facility] All[facility]ie 03-14 [facility] s 00:00: d 00 [facility] Social History Social Habit Start Date Stop Date Quantity Comments Source Sex Assigned At [facility] Tobacco use and 2020-11-14 2020-11-14 Former user NICOLETTE Lira [facility] - exposure 00:00:00 00:00:00 [facility] Alcohol intake 2020-11-14 2020-11-14 Current [facility] es - 00:00:00 00:00:00 non-drinker of [facility] nter alcohol (finding) Tobacco Comment 2017-12-06 2017-12-06 quit [address] [facility] - 00:00:00 00:00:00 [facility] Smoking Status Start Date Stop Date Source Former smoker 2020-11-14 00:00:00 2020-11-14 00:00:00 [facility] Medications Ordered Filled Start Stop Current Ordering Indication Dosage Frequency Signature Comments Components Source Medication Medication Date Date Medication? Clinician (SIG) Name Name ethambutol Yes 1200mg QD Take 1,[address] (MYAMBUTOL) 5-26 mg by [facility] - 400 MG 10:34: mouth Medical tablet 18 daily. [facility] albuterol Yes 2{puff} Inhale [address] HFA 5-26 puffs by [facility] - (VENTOLIN 10:34: mouth via Med ical HFA) 90 18 inhaler Center mcg/actuati every 6 on inhaler (six) hours as needed for Wheezing. rifAMPin Yes 600mg QD Take [address] (RIFADIN) 5-26 mg by [facility] - 300 MG 10:34: mouth Medical capsule 18 daily. Center azithromyci Yes 500mg QD Take [address] n 5-26 mg by [facility] - (ZITHROMAX) 10:34: mouth Medic al 500 MG 18 daily. Center tablet insulin Yes 25U Q.5D Inject 25 [facility] regular 5-26 Units [facility] - (HUMULIN 10:34: subcutaneo Med ical R,NOVOLIN 18 usly 2 Center R) 100 (two) unit/mL times injection daily Sliding scale . prasugrel Yes 10mg Take [address] (EFFIENT) 5-26 by mouth [facility] - 10 mg Tab 10:34: every Medical tablet 18 other day Center . aspirin 81 Yes 81mg QD Take [address] MG EC 5-26 by mouth [facility] - tablet 10:34: daily. Medical 18 Center sacubitriL- Yes 1{tbl} Q.5D Take [address] valsartan 5-26 tablet by [facility] - (Entresto) 10:34: mouth 2 Medi little 49-51 mg 18 (two) Center Tab times daily. atorvastati Yes 40mg QD Take [address] n (LIPITOR) 5-26 by mouth Luke s - 40 MG 10:34: daily. Medical tablet 18 Center pantoprazol Yes [facility] e 5-03 [facility] - (PROTONIX) 00:00: Medical 40 MG 00 [facility] tablet Trelegy 2020- No [facility] Ellipta 5-03 05-26 [facility] - 100-62.5-25 00:00: 00:00 Medic al mcg DsDv 00 :00 [facility] gabapentin Yes [facility] (NEURONTIN) 3-22 [facility] - 300 MG 00:00: Medical capsule 00 Center furosemide Yes [facility] (LASIX) 40 3-22 [facility] - MG tablet 00:00: Medical 00 [facility] pen needle, Yes To use [address] diabetic 31 5-21 day. [facility] - gauge x 00:00: Medical 11/02" Ndle 00 Center Vital Signs Vital Name Observation Time Observation Value Comments Source Systolic blood 2020-11-12 07:21:00 188 mm[Hg] [facility] Diastolic blood 2020-11-12 07:21:00 88 mm[Hg] [facility] Heart rate 2020-11-12 07:21:00 96 /min [facility] Body temperature 2020-11-12 07:21:00 37.28 [place] [facility] Respiratory rate 2020-11-12 07:21:00 18 /min [facility] Oxygen saturation in 2020-11-12 07:21:00 93 /min [facility] Arterial blood by Medical Ce nter Pulse oximetry Body height 2020-11-11 11:05:00 177.8 cm [facility] Body weight 2020-11-11 11:05:00 102.059 kg [facility] BMI 2020-11-11 11:05:00 32.28 kg/m2 [facility] Procedures Procedure Date / Time Performed Performing Clinician Sourshamir e POCT-GLUCOSE METER 2020-11-12 07:25:00 Keon Jean [facility] BASIC METABOLIC PANEL 2020-11-12 05:07:00 Melva Cho [facility] (7) [facility] CBC (HEMOGRAM ONLY) 2020-11-12 04:02:00 Melva Cho [facility] POCT-ACT 2020-11-11 19:36:00 Keon Jean [facility] POCT-ACT 2020-11-11 17:07:00 Keon Jean [facility] POCT-GLUCOSE METER 2020-11-11 15:16:00 Keon Jean [facility] POCT-ACT 2020-11-11 13:44:00 Keon Jean [facility] ABD AO & LOWER EXT 2020-11-11 12:10:00 Keon Jean CH I [facility] ANGIOS/ [facility] ECG 12-LEAD 2020-11-11 11:20:52 Keon Jean [facility] VASCULAR DIAGRAM -SCAN 2020-11-11 00:00:00 Provider [facility] CARDIAC CATH REPORT - 2020-11-11 00:00:00 Provider, [facility] CTA ABDOMEN & PELVIS 2020-10-22 14:12:00 Keon Jean [facility] POCT-GLUCOSE METER 2020-09-25 07:09:[address] Ke[address] [facility] BASIC METABOLIC PANEL 2020-09-25 06:01:00 Lacho Thomas [address] CBC (HEMOGRAM ONLY) 2020-09-25 06:01:[address] [facility] POCT-GLUCOSE METER 2020-09-24 21:36:[address] [facility] POCT-ACT 2020-09-24 20:53:00 Keon Jean [facility] POCT-ACT 2020-09-24 17:24:00 Keon Jean [facility] POCT-GLUCOSE METER 2020-09-24 16:47:[address] [facility] POCT-GLUCOSE METER 2020-09-24 14:41:[address] [facility] POCT-ACT 2020-09-24 13:27:00 Keon Jean [facility] CAROTID ANGIOGRAMS 2020-09-24 11:07:[address] [facility] PERIPHERAL ARTERIOGRAM 2020-09-24 11:07:00 Keon Jean [facility] VASCULAR DIAGRAM -SCAN 2020-09-24 00:00:00 Provider, Default [facility] - Scanning [facility] CARDIAC CATH REPORT - 2020-09-24 00:00:00 [facility] REPORT OF PROCEDURE - 2020-09-24 00:00:00 [facility] Scanning [facility] BASIC METABOLIC PANEL 2020-09-23 10:05:00 Keon Jean [facility] - (7) [facility] CBC W/PLT COUNT & AUTO 2020-09-23 10:05:00 Keon Jean [facility] - DIFFERENTIAL [facility] SARS-COV2/RT-PCR ([facility] & 2020-09-23 09:56:00 Keon Jean susanna [facility] - REF LABS) [facility] SARS-COV2/RT-PCR ([facility] & 2020-01-02 17:33:[address] [facility] - REF LABS) Medical Center Plan of Care Planned Activity Planned Date Details Comments Source Future Scheduled 2021-02-[address] [facility] - Test 00:00:00 (Season Ended) [code Medical Center = INFLUENZA VACCINE (Season Ended)] Future Scheduled 2020-09-[address] Annita kes - Test 00:00:00 [facility] (procedure) [code = 31684286] Future Scheduled 2017-03-[address] [facility] - Test 00:00:00 WELLNESS (YEAR 2 or Medical Center FIRST YEAR if no IPPE) [code = MEDICARE ANNUAL WELLNESS (YEAR 2 or FIRST YEAR if no IPPE)] Future Scheduled 2014 SHINGLES VACCINES ([address] [facility] - Test 00:00:00 of 2) [code = [facility] SHINGLES VACCINES (1 of 2)] Future Scheduled [address] [facility] - Test 00:00:00 (procedure) [code = [facility] 51271860] Future Scheduled 1983 DTAP/TDAP/TD VACCINES [facility] - Test 00:00:00 (1 - Tdap) [code = Medical C enter DTAP/TDAP/TD VACCINES (1 - Tdap)] Future Scheduled 1982 HEPATITIS C SCREENING [facility] - Test 00:00:00 [code = HEPATITIS C Medical Center SCREENING] Future Scheduled 1974 DIABETIC EYE EXAM [facility] - Test 00:00:00 [code = DIABETIC EYE Medical Center EXAM] Future Scheduled [address] Kathy es - Test 00:00:00 examination Medical Center (regime/therapy) [code = 415861623] Future Scheduled 1974 Urine screening for [facility] - Test 00:00:00 protein (procedure) Medical Center [code = 995495554] Future Scheduled [address] [facility] Kathy es - Test 00:00:00 malignant neoplasm of [facility]ist[facility] colon (procedure) [code = 196541226] Encounters Start End Encounter Admission Attending Care Care Encounter Source Date/Time Date/Time Type Type Clinicians Facility Department ID 2020-09-01 2020-09-01 Office VALENTIN Jean [id number] 15:36:10 16:06:10 Visit Keon Velazquez AMBULATOR [id number] Y [id number] [id number] 2020-07-02 2020-07-02 Office VALENTIN Abraham [id number] 08:58:12 15:56:02 Visit Bassem AMBULATOR 350.1.13.21 Y [id number] [id number] 2020-06-04 2020-06-06 Office VALENTIN Abraham [id number] 13:51:41 16:18:02 Visit Bassem AMBULATOR 350.1.13.21 Y 0.2.7.2.686 [id number] Results Test Description Test Time Test Comments Results Result Sourc e Comments VASCULAR DIAGRAM 2020-11-17 Ordered by an [facility] -SCAN 17:02:06 unspecified - Medical provider. Center CARDIAC CATH 2020-11-13 Ordered by an [facility] St Ariza kes REPORT - SCAN 13:11:30 unspecified - Medical provider. [facility] POC-Glucose meter 2020-11-12 07:37:00 Test Item Value Reference Range Interpretation Comme nts POC-Glucose Meter (test code = 316 mg/dL 70-110 H : TESTED AT [facility] [address]) [facility], [address]: Grinder Set Up Operator/Techni cuco ID = [id number] for NAZIA DOVE Lab Interpretation (test code = Abnormal 01659-2) [facility]SE [id number] 07:37:00 Test Item Value Reference Range Interpretation Comments POC-GLUCOSE METER 316 mg/dL 70-110 H : TESTED A T [facility] [address] (BEAKER) (test code = [address] [facility], 1538) [address]: Grinder Set Up Operator/Techni cuco ID = [id number] for NAZIA FISCHER Basic metabolic [id number] 05:45:00 Test Item Value Reference Range Interpretation Comments Sodium (test code = 135 meq/L 136-145 L 2951-2) Potassium (test code = 4.1 meq/L 3.5-5.1 2823-3) Chloride (test code = 102 meq/L 98-107 2075-0) CO2 (test code = 23 meq/L 22-29 2028-9) BUN (test code = 29 mg/dL 7-21 H 3094-0) Creatinine (test code 1.43 mg/dL 0.57-1.25 H = 2160-0) Glucose (test code = 354 mg/dL 70-105 H 2345-7) Calcium (test code = 8.6 mg/dL 8.4-10.2 03860-8) EGFR (test code = 51 mL/min/1.73 [place] [address]-4) NOT ACCURATE CREATININE CLEARANCE IN PREDICTING GLOMERULAR FILTRATION RATE . ESTIMATED GFR I S NOT APPLICABLE FOR DIALYSIS PATIENTS. JUANPABLO (test code = JUANPABLO) Grinder Set Up Operator ID - MALINI W Lab Interpretation Abnormal (test code = 96882-4) [facility] Heart[facility] METABOLIC [id number] 05:45:00 Test Item Value Reference Range Interpretation Comments SODIUM (BEAKER) 135 meq/L 136-145 L (test code = 381) POTASSIUM (BEAKER) 4.1 meq/L 3.5-5.1 (test code = 379) CHLORIDE (BEAKER) 102 meq/L 98-107 (test code = 382) CO2 (BEAKER) (test 23 meq/L -29 code = 355) BLOOD UREA NITROGEN 29 mg/dL 7-21 H (BEAKER) (test code = 354) CREATININE (BEAKER) 1.43 mg/dL 0.57-1.25 H (test code = 358) GLUCOSE RANDOM 354 mg/dL 70-105 H (BEAKER) (test code = 652) CALCIUM (BEAKER) 8.6 mg/dL 8.4-10.2 (test code = 697) EGFR (BEAKER) (test 51 mL/min/1.73 ESTIMA KAILASH GFR IS code = 1092) sq m NOT ACCURATE CREATININE CLEARANCE IN PREDICTING GLOMERULAR FILTRATION RATE . ESTIMATED GFR I S NOT APPLICABLE FOR DIALYSIS PATIEN TS. Grinder Set Up Operator ID - MALINI [facility] (Hemogram only)2020-11-12 04:34:00 Test Item Value Reference Range Interpretation Comments WBC (test code = 6690-2) 7.8 See_Comment [A utomated message] The system [employer] generated this result transmitted ref erence range: 3.5 - 10 .5 K/L. The refe rence range was not u sed to interpret this result as normal/abnor mal. RBC (test code = 789-8) 4.10 See_Comment L [Au tomated message] The system [employer] generated this result transmitted ref erence range: 4.63 - 6 .08 M/L. The refe rence range was not u sed to interpret this result as normal/abnor mal. MCHC (test code = 786-4) 32.4 See_Comment L [A utomated message] The system [employer] generated this result transmitted ref erence range: 32.3 - 3 6.5 GM/DL. The refe rence range was not u sed to interpret this result as normal/abnor mal. Hematocrit (test code = 38.3 % 40.1-51 L 4544-3) MCV (test code = 787-2) 93.4 fL 79-92.2 H MCH (test code = 785-6) 30.2 pg 25.7-32.2 RDW (test code = 788-0) 14.5 % 11.6-14.4 H Platelets (test code = 218 See_Comment [Aut omated message] 107-3) The system [employer] generated this result transmitted ref erence range: 150 - 45 0 K/CU MM. The referen ce range was not u sed to interpret this result as normal/abnor mal. MPV (test code = 11.6 fL 9.4-12.4 99552-0) nRBC (test code = 413) 0 See_Comment [Aut omated message] The system [employer] h generated this result transmitted ref erence range: 0 - 0 /1 00 WBC. The refere nce range was not u sed to interpret this result as normal/abnor mal. Lab Interpretation (test Abnormal code = 83852-1) [facility] (HEMOGRAM ONLY)2020-11-12 04:34:00 Test Item Value Reference Range Interpretation Comments WHITE BLOOD CELL COUNT (BEAKER) 7.8 K/ L 3.5-10.5 (test code = 775) RED BLOOD CELL COUNT (BEAKER) 4.10 M/ L 4.63-6.08 L (test code = 761) HEMOGLOBIN (BEAKER) (test code = 12.4 GM/DL 13.7-17.5 L 410) HEMATOCRIT (BEAKER) (test code = 38.3 % 40.1-51.0 L 411) MEAN CORPUSCULAR VOLUME (BEAKER) 93.4 fL 79.0-92.2 H (test code = 753) MEAN CORPUSCULAR HEMOGLOBIN 30.2 pg 25.7-32.2 (BEAKER) (test code = 751) MEAN CORPUSCULAR HEMOGLOBIN CONC 32.4 GM/DL 32.3-36.5 (BEAKER) (test code = 752) RED CELL DISTRIBUTION WIDTH 14.5 % 11.6-14.4 H (BEAKER) (test code = 412) PLATELET COUNT (BEAKER) (test 218 K/CU MM 150-450 code = 756) MEAN PLATELET VOLUME (BEAKER) 11.6 fL 9.4-12.4 (test code = 754) NUCLEATED RED BLOOD CELLS 0 /100 WBC 0-0 (BEAKER) (test code = 413) POC ACTIVATED CLOTTING [id number] 19:54:00 Test Item Value Reference Range Interpretation Comments Activated Clotting Time 131 sec : 74 -137 seconds, (test code = 441) Baseline: TESTED AT [facility] [address] [facility] [place], [address]: Grinder Set Up Operator/Techni cuco ID = [id number] for MIKO VINSON SE, [id number] 19:54:00 Test Item Value Reference Range Interpretation Comments ACTIVATED CLOTTING TIME 131 sec : 74 -137 seconds, (BEAKER) (test code = Baseli ne: TESTED AT 441) [facility] [address] [facility], [address]: Grinder Set Up Operator/Techni cuco ID = [id number] for MIKO VINSON SE [id number] 17:26:00 Test Item Value Reference Range Interpretation Comments ACTIVATED CLOTTING TIME 169 sec : 74 -137 seconds, (BEAKER) (test code = Baseli ne: TESTED AT 441) [facility] [address] [facility], [facility] 30: Grinder Set Up Operator/Techni cuco ID = [id number] for CO NROD DUPLECHIAN (V), SONJA POCT-GLUCOSE [id number] 15:28:00 Test Item Value Reference Range Interpretation Comments POC-GLUCOSE METER 240 mg/dL 70-110 H : TESTED [place] T [place] [address] (BEAKER) (test code = [facility], 1538) [address]: Grinder Set Up Operator/Techni cuco ID = [id number] for AMADEO LONG [id number] 14:05:00 Test Item Value Reference Range Interpretation Comments ACTIVATED CLOTTING TIME 318 sec : 74 -137 seconds, (BEAKER) (test code = Baseli ne: TESTED AT 441) [facility] [address] [facility], [facility] 30: Grinder Set Up Operator/Techni cuco ID = [id number] for MAXINE SUMNER ECG 12 [id number] 13:49:57Interface, External Ris In - 11/11/2020 1:50 PM CDTVentricular Rate 94 BPMAtrial Rate 94 BPMP-R Interval 200 msQRS Duration 100 msQ-T Interval 404 msQTC Calculation(Bazett) 505 msP [place] 64 degreesR [place] -7 degreesT [place] 110 degreesNormal sinus rhythmST & T wave abnormality, consider lateral ischemiaProlonged QTAbnormal ECGWhen compared with ECG of 02-NOV-2016 17:35,Criteria for Inferior infarct are no longer PresentNon- specific change in ST segment in Inferior leadsNon-specific change in ST segment in Anterolateral leadsT wave inversion less evident in Lateral leadsQT has lengthenedConfirmed by MD Booth Roberto ([id number]) on 11/11/2020 1:49:52 PM [facility], CTA [id number] 16:36:00Unlisted Reason for Exam - Click Yes and Enter Reason Below->YesUnlisted Reason for Exam->Abdominal aorta [facility] : 1965 Sex: MFINAL REPORT CTA of the abdominal aorta and pelvis RADIATION DOSE R EDUCTION: This exam was performed according to the departmental dose- optimization program which includes automated exposure control, adjustment of the mA and/or kV according to patient size and/or use of iterative reconstruction technique. Comparison: None Unlisted Reason for ExamAbdominal aorta aneurysm Technique: Multidetector CT scanner. Images were obtained during the dynamic passage of intravenous contrast material. 3D volume-rendering and multiplanar reconstructions were performed interactively by the medical technologist clinical using an independent 3-D workstation. RADIATION DOSE REDUCTION:This exam was performed according to the departmental dose-optimization program which includes automated exposure control, adjustment of the mA and/or kV according to patient size and/or use of iterative reconstruction technique. Findings: Vascular:There is patchy coarse atherosclerotic calcification of the aortaand its branches, most pronounced in the region of the infrarenal segment. There is no acute aortic wall abnormality on noncontrast images such as intramural hematoma. There is no periaortic hematoma. There is presence of diffuse mural plaque and thickening in the visualized abdominal aorta. There is presence of possible mild mural thrombus in an eccentric fashion in the infrarenal abdominal aorta. The visualized portion of the distal descending thoracic aorta is normal. There is no evidence of any aneurysmal dilatation involving the abdominal aorta or the iliac arteries. Measurements of the abdominal aorta:Hiatus: 28 x 25 mmSuprarenal: 23.6 x 22.3 mmInfrarenal: 22.3 x 20.7mmAbove the bifurcation:Above the bifurcation 26 x 24.1 mm There are single right and left left renal arteries that are patent. There are single renal veins that are patent. The celiac axis and SMA are patent. 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 There is atherosclerotic calcification at the ostia of the above-mentioned arteries. The right common iliac artery measures 20.6 x 19.7 mm and would be considered aneurysmal. The left common iliac artery measures 15.7 x 15.4 mm. It is ectatic but not aneurysmal. The external, internal iliac arteries and the femoral arteries are diseased but patent and nonaneurysmal. Nonvascular component:Inferior chest: The right lung base is unremarkable. Right pleural space is unremarkable. There is presence of linear scarring in the left lung base. There is presence of solid nodule with no calcification and lobulated margins best seen series A2 image #4. It measures approximately 10 x 9 mm. There is another patch of dense opacity in the left lung base anteriorly series A2 image #2. This is more consistent with scar. There are additional multiple small solid noncalcified nodules, mostly with smooth borders there scattered throughout the left lung base. There is a nodule seen series A2 image #10 more anteriorly that measures 9 mm. There is another nodule that is situated more posteriorly series A2 image #13 that measures 10 x 8 and another nodule series A2 image #16 situated more inferiorly measures 12 x 8 mm. Please see below regarding recommendations. There is no pleural thickening, effusion or pneumothorax. Heart size is normal. Pericardium is unremarkable. There is a right ventricular AICD lead and battery in the anterior wall of the right ventricle. There is a right atrial pacer wire seen. No coronary artery calcification is seen on this exam. Liver: This is only arterial phase and precontrast imaging and therefore is limited for evaluation of the liver. The liver appears unremarkable.Gallbladder and biliary tree: A calcified gallstone is present without CT evidence of cholecystitis. There is no intra or extrahepatic biliary dilatation.Spleen: Unremarkable.Pancreas: UnremarkableAdrenal glands: Unremarkable. Kidneys and ureters: Unremarkable. Symmetric uptake and of contrast. GI tract: Unremarkable.Urinary bladder: Unremarkable.Genitalia: Unremarkable.Lymph nodes: No lymphadenopathy.Peritoneum/mesentery: Unremarkable. Retroperitoneal findings: None.Abdominal wall: Unremarkable.MUSCULOSKELETAL: Metallic density in the sternum suggestive of status post sternotomy. No aggressive bony lesions. Conclusions: Atherosclerotic with nonaneurysmal abdominal aorta. Right common iliac artery aneurysm. Left common iliac artery is dilated but nonaneurysmal. There is presence of multiple nodules in the left lung base as described above. Correlation with prior cross-sectional imaging is important. Absent that, consider a follow-up CT at 3 months. Cholelithiasis. Thank you for the opportunity to assist you in the care of this patient. Signed: Silvino Guillen Verified Date/Time: 10/22/2020 16:36:41 Reading Location: [facility] Diagnostic Imaging Reading Room - [place] [address].12 CTA abdomen & pelvis 2020-10-22 16:36:00Interface, External Ris In - 10/22/2020 5:34 PM CDTFINAL REPORT CTA of the abdominal aorta and pelvis RADIATION DOSE REDUCTION: This exam was performed according to the departmental dose- optimization program which includes automated exposure control, adjustment of the mA and/or kV according to patient size and/or use of iterative reconstruction technique. Comparison: None Unlisted Reason for ExamAbdominal aorta aneurysm Technique: Multidetector CT scanner. Images were obtained during the dynamic passage of intravenous contrast material. 3D volume-rendering and multiplanar reconstructions were performed interactively by the medical technologist clinical using an independent 3-D workstation. RADIATION DOSE REDUCTION:This exam was performed according to the departmental dose-optimization program which includes automated exposure control, adjustment of the mA and/or kV according to patient size and/or use of iterative reconstruction technique. Findings: Vascular:There is patchy coarse atherosclerotic calcification of the aorta and its branches, most pronounced in the region of the infrarenal segment. There is no acute aortic wall abnormality on noncontrast images such as intramural he matoma. There is no periaortic hematoma. There is presence of diffuse mural plaque and thickening inthe visualized abdominal aorta. There is presence of possible mild mural thrombus in an eccentric fashion in the infrarenal abdominal aorta. The visualized portion of the distal descending thoracic aorta is normal. There is no evidence of any aneurysmal dilatation involving the abdominal aorta or the iliac arteries. Measurements of the abdominal aorta:Hiatus: 28 x 25 mmSuprarenal: 23.6 x 22.3 mmInfrarenal: 22.3 x 20.7mmAbove the bifurcation: Above the bifurcation 26 x 24.1 mm There are single right and left left renal arteries that are patent. There are single renal veins that are patent. The celiac axis and SMA are patent. 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 There is atherosclerotic calcification at the ostia of the above-mentioned arteries. The right common iliac artery measures 20.6 x 19.7 mm and would be considered aneurysmal. The left common iliac artery measures 15.7 x 15.4 mm. It is ectatic but not aneurysmal. The external, internal iliac arteries and the femoral arteries are diseased but patent and nonaneurysmal. Nonvascular component:Inferior chest: The right lung base is unremarkable. Right pleural space is unremarkable. There is presence of linear scarring in the left lung base. There is presence of solid nodule with no calcification and lobulated margins best seen series A2 image #4. It measures approximately 10 x 9 mm. There is another patch of dense opacity in the left lung base anteriorly series A2 image #2. This is more consistent with scar. There are additional multiple small solid noncalcified nodules, mostly with smooth borders there scattered throughout the left lung base. There is a nodule seen series A2 image #10 more anteriorly that measures 9 mm. There is another nodule that is situated more posteriorly series A2 image #13 that measures 10 x 8 and another nodule series A2 image #16 situated more inferiorly measures 12 x 8 mm. Please see below regarding recommendations. There is no pleural thickening, effusion or pneumothorax. Heart size is normal. Pericardium is unremarkable. There is a right ventricular AICD leadand battery in the anterior wall of the right ventricle. There is a right atrial pacer wire seen. Nocoronary artery calcification is seen on this exam. Liver: This is only arterial phase and precontrast imaging and therefore is limited for evaluation of the liver. The liver appears unremarkable.Gallbladder and biliary tree: A calcified gallstone is present without CT evidence of cholecystitis. Thereis no intra or extrahepatic biliary dilatation.Spleen: Unremarkable.Pancreas: UnremarkableAdrenal glands: Unremarkable. Kidneys and ureters: Unremarkable. Symmetric uptake and of contrast. GI tract: Unremarkable.Urinary bladder: Unremarkable.Genitalia: Unremarkable.Lymph nodes: No lymphadenopathy.Perit oneum/mesentery: Unremarkable. Retroperitoneal findings: None.Abdominal wall: Unremarkable.MUSCULOSKELETAL: Metallic density in the sternum suggestive of status post sternotomy. No aggressive bony lesions. Conclusions: Atherosclerotic with nonaneurysmal abdominal aorta. Right common iliac artery aneurysm. Left common iliac artery is dilated but nonaneurysmal. There is presence of multiple nodules in the left lung base as described above. Correlation with prior cross- sectional imaging is important. Absent that, consider a follow-up CT at 3 months. Cholelithiasis. Thank you for the opportunity to assist you in the care of this patient. Signed: Silvino Guillen Verified Date/Time: 10/22/2020 16:36:41 Reading Location: [facility] Diagnostic Imaging Reading Room - [facility] [phone] [facility] [id number] 10:11:49Ordered by an unspecified provider.[facility] HeartPOCT- GLU[facility]SE [id number] 07:24:00 Test Item Value Reference Range Interpretation Comments POC-GLUCOSE METER 405 mg/dL 70-110 HH : TESTED A T [facility] 6720 (BEAKER) (test code = [facility] Jessica [facility], 1538) [id number]: Grinder Set Up Operator/Techni cuco ID = [id number] for CYNTHIA ROSEN BASIC METABOLIC [id number] 07:03:00 Test Item Value Reference Range Interpretation Comments SODIUM (BEAKER) 138 meq/L 136-145 (test code = 381) POTASSIUM (BEAKER) 4.5 meq/L 3.5-5.1 (test code = 379) CHLORIDE (BEAKER) 102 meq/L 98-107 (test code = 382) CO2 (BEAKER) (test 24 meq/L 22-29 code = 355) BLOOD UREA NITROGEN 25 mg/dL 7-21 H (BEAKER) (test code = 354) CREATININE (BEAKER) 1.46 mg/dL 0.57-1.25 H (test code = 358) GLUCOSE RANDOM 359 mg/dL 70-105 H (BEAKER) (test code = 652) CALCIUM (BEAKER) 8.5 mg/dL 8.4-10.2 (test code = 697) EGFR (BEAKER) (test 50 mL/min/1.73 ESTIMA KAILASH GFR IS code = 1092) sq m NOT ACCURATE CREATININE CLEARANCE IN PREDICTING GLOMERULAR FILTRATION RATE . ESTIMATED GFR I S NOT APPLICABLE FOR DIALYSIS PATIEN TS. Grinder Set Up Operator ID - LACIE MC (HEMOGRAM ONLY)2020-09-25 06:42:00 Test Item Value Reference Range Interpretation Comments WHITE BLOOD CELL COUNT (BEAKER) 8.2 K/ L 3.5-10.5 (test code = 775) RED BLOOD CELL COUNT (BEAKER) 3.95 M/ L 4.63-6.08 L (test code = 761) HEMOGLOBIN (BEAKER) (test code = 12.1 GM/DL 13.7-17.5 L 410) HEMATOCRIT (BEAKER) (test code = 37.2 % 40.1-51.0 L 411) MEAN CORPUSCULAR VOLUME (BEAKER) 94.2 fL 79.0-92.2 H (test code = 753) MEAN CORPUSCULAR HEMOGLOBIN 30.6 pg 25.7-32.2 (BEAKER) (test code = 751) MEAN CORPUSCULAR HEMOGLOBIN CONC 32.5 GM/DL 32.3-36.5 (BEAKER) (test code = 752) RED CELL DISTRIBUTION WIDTH 14.0 % 11.6-14.4 (BEAKER) (test code = 412) PLATELET COUNT (BEAKER) (test 181 K/CU MM 150-450 code = 756) MEAN PLATELET VOLUME (BEAKER) 11.2 fL 9.4-12.4 (test code = 754) NUCLEATED RED BLOOD CELLS 0 /100 WBC 0-0 (BEAKER) (test code = 413) POCT-GLUCOSE [id number] 21:48:00 Test Item Value Reference Range Interpretation Comments POC-GLUCOSE METER 319 mg/dL 70-110 H : TESTED A T [facility] 6720 (BEAKER) (test code = [facility], 1538) [address]: Grinder Set Up Operator/Techni cuco ID = [id number] for VICTORINA AGUAYO [id number] 21:07:00 Test Item Value Reference Range Interpretation Comments ACTIVATED CLOTTING TIME 120 sec : 74 -137 seconds, (BEAKER) (test code = Baseli ne: TESTED AT 441) [facility] 6720 [facility], 770 30: Grinder Set Up Operator/Techni cuco ID = [id number] for ALISSON MIKO MAC [id number] 18:58:00 Test Item Value Reference Range Interpretation Comments ACTIVATED CLOTTING TIME 153 sec : 74 -137 seconds, (BEAKER) (test code = Baseli ne: TESTED AT 441) [facility] 6720 [facility], 770 30: Grinder Set Up Operator/Techni cuco ID = [id number] for DAVEY THEVirginia, MINI POCT-GLUCOSE [id number] 17:00:00 Test Item Value Reference Range Interpretation Comments POC-GLUCOSE METER 209 mg/dL 70-110 H : [facility] (BEAKER) (test code = [facility], 153) [address]: Grinder Set Up Operator/Techni cuco ID = [id number] for CYNTHIA ROSEN POCT-GLUCOSE [id number] 14:53:00 Test Item Value Reference Range Interpretation Comments POC-GLUCOSE METER 200 mg/dL 70-110 H : TESTED A T [facility] 6720 (BEAKER) (test code = [facility], 1538) [address]: Grinder Set Up Operator/Techni cuco ID = [id number] for ISELA PAYANHA [id number] 13:48:00 Test Item Value Reference Range Interpretation Comments ACTIVATED CLOTTING TIME 290 sec : 74 -137 seconds, (BEAKER) (test code = Baseli ne: TESTED AT 441) [facility] 6720 [facility], 770 30: Grinder Set Up Operator/Techni cuco ID = [id number] for SHERYL MATA SARS-CoV2/RT-PCR ([facility])2020-09-24 00:07:00 Test Item Value Reference Range Interpretation Comments SARS-COV2/RT-PCR Negative Not Detected, (test code = Negative, See 40796-3) external report for linked test SARS-COV-2 [facility] PERFORMING LAB (test code = 42134-7) JUANPABLO (test code = Negative result for this JUANPABLO) test determines that SARS-CoV-2 RNA was not present in the specimen above the Limit of Detection (LOD). However, Negative results do not preclude SARS-CoV-2 infection and should not be used as the sole basis for treatment or patient management decisions. Negative results must be combined with clinical observations, patient history, and epidemiological information. A false negative result may occur if a specimen is improperly collected, transported or handled. A false negative result should be considered if patient's recent exposures or clinical presentation indicate that COVID-19 (SARS-CoV-2) is likely and diagnostic tests for other causes of illness are negative. Re-testing should be considered in cases of suspected false negatives. The limit of detection for this assay is 100 copies/mL. This SARS CoV-2 test is a real-time RT-PCR test intended for the qualitative detection of nucleic acid from SARS-CoV-2 in a nasopharyngeal swab specimen collected from individuals suspected of COVID-19 by their healthcare provider. This test has not been Food and Drug Administration (FDA) cleared or approved. This is a modified version of an approved Emergency Use Authorization (EUA) and is in the process of review by the FDA. Once authorized by the FDA, the issued EUA will be effective until the declaration that circumstances exist justifying the authorization of the emergency use of in vitro diagnostic tests for detection and/or diagnosis of COVID-19 is terminated under Section 564(b)(2) of the Act or the EUA is revoked under Section 564(g) of the Act. Testing was performed using the [employer] SARS-CoV-2 assay. Fact Sheet for Healthcare Providers:https://www.[employer]..Action/kvng/RT_SA CP-RtK-7_ZOK_Ruwo_Ytegu_ 51-675864.pdf Fact Sheet for Healthcare Patients:https://www.Getaround.Action/kvng/RT_SAR A-UjU-5_Wibnpxj_Zfjt_Wgr et_EN_51-065296S6.pdf Performing Laboratory:[facility] [place] [address] [facility]2020-09-24 00:07:00 Test Item Value Reference Range Interpretation Comments SARS-COV2/RT-PCR (test Negative Not Detected, Negative, code = 1797112) See external report for linked test SARS-COV-2 PERFORMING LAB [facility] (test code = 8392367) Negative result for this test determines that SARS-CoV-2 RNA was not present in the specimen above the Limit of Detection (LOD). However, Negative results do not preclude SARS-CoV-2 infection and should not be used as the sole basis for treatment or patient management decisions. Negative results mustbe combined with clinical observations, patient history, and epidemiological information. A false negative result may occur if a specimen is improperly collected, transported or handled. A false negative result should be considered if patient's recent exposures or clinical presentation indicate that COVID-19 (SARS-CoV-2) is likely and diagnostic tests for other causes of illness are negative. Re-testing should be considered in cases of suspected false negatives.The limit of detection for this assay is 100 copies/mL.This SARS CoV-2 test is a real-time RT-PCR test intended for the qualitative detection of nucleic acid from SARS-CoV-2 in a nasopharyngeal swab specimen collected from individuals susp ected of COVID-19 by their healthcare provider.This test has not been Food and Drug Administration (FDA) cleared or approved. This is a modified version of an approved Emergency Use Authorization (EUA) and is in the process of review by the FDA. Once authorized by the FDA, the issued EUA will be effective until the declaration that circumstances exist justifying the authorization of the emergency use of in vitro diagnostic tests for detection and/or diagnosis of COVID-19 is terminated under Section 564(b)(2) of the Act or the EUA is revoked under Section 564(g) of the Act.Testing was performed using the [employer] SARS-CoV-2 assay.Fact Sheet for Healthcare Providers:https://www.Stardoll.payne/kvng/ KM_IHHE-FkU-9_BYQ_Ycaa_Hmwul_97-072425.pdfFact Sheet for Healthcare Patients:https://www.[employer] rick/kvng/CM_JQAH-VbC-9_Ptlizcp_Jrie_Czidp_VM_28-759496A5.pdfPerforming Laboratory:[facility] [place] [address] [id number] 00:00:00Ordered by an unspecified provider.[facility] HeartBASIC METABOLIC [id number] 10:55:00 Test Item Value Reference Range Interpretation Comments SODIUM (BEAKER) 139 meq/L 136-145 (test code = 381) POTASSIUM (BEAKER) 4.5 meq/L 3.5-5.1 (test code = 379) CHLORIDE (BEAKER) 101 meq/L 98-107 (test code = 382) CO2 (BEAKER) (test 29 meq/L 22-29 code = 355) BLOOD UREA NITROGEN 30 mg/dL 7-21 H (BEAKER) (test code = 354) CREATININE (BEAKER) 1.51 mg/dL 0.57-1.25 H (test code = 358) GLUCOSE RANDOM 291 mg/dL 70-105 H (BEAKER) (test code = 652) CALCIUM (BEAKER) 9.5 mg/dL 8.4-10.2 (test code = 697) EGFR (BEAKER) (test 48 mL/min/1.73 ESTIMA KAILASH GFR IS code = 1092) sq m NOT ACCURATE CREATININE CLEARANCE IN PREDICTING GLOMERULAR FILTRATION RATE . ESTIMATED GFR I S NOT APPLICABLE FOR DIALYSIS PATIEN TS. Grinder Set Up Operator ID - NANY FCBC with platelet count + automated [id number] 10:37:00 Test Item Value Reference Range Interpretation Comments WBC (test code = 6690-2) 7.3 See_Comment [A utomated message] The system [employer] generated this result transmitted ref erence range: 3.5 - 10 .5 K/L. The refe rence range was not u sed to interpret this result as normal/abnor mal. RBC (test code = 789-8) 4.64 See_Comment [Au tomated message] The system [employer] generated this result transmitted ref erence range: 4.63 - 6 .08 M/L. The refe rence range was not u sed to interpret this result as normal/abnor mal. MCHC (test code = 786-4) 32.4 See_Comment [A utomated message] The system [employer] generated this result transmitted ref erence range: 32.3 - 3 6.5 GM/DL. The refe rence range was not u sed to interpret this result as normal/abnor mal. Hematocrit (test code = 43.5 % 40.1-51 4544-3) MCV (test code = 787-2) 93.8 fL 79-92.2 H MCH (test code = 785-6) 30.4 pg 25.7-32.2 RDW (test code = 788-0) 14.2 % 11.6-14.4 Platelets (test code = 193 See_Comment [Aut omated message] 777-3) The system [employer] generated this result transmitted ref erence range: 150 - 45 0 K/CU MM. The referen ce range was not u sed to interpret this result as normal/abnor mal. MPV (test code = 11.2 fL 9.4-12.4 43494-7) nRBC (test code = 413) 0 See_Comment [Aut omated message] The system [employer] generated this result transmitted ref erence range: 0 - 0 /1 00 WBC. The refere nce range was not u sed to interpret this result as normal/abnor mal. % Neutros (test code = 62 % 429) % Lymphs (test code = 28 % 430) % Monos (test code = 6 % 431) % Eos (test code = 432) 3 % % Baso (test code = 437) 1 % # Neutros (test code = 4.54 See_Comment [Aut omated message] 670) The system [employer] generated this result transmitted ref erence range: 1.78 - 5 .38 K/L. The refe rence range was not u sed to interpret this result as normal/abnor mal. # Lymphs (test code = 2.08 See_Comment [Auto mated message] 414) The system [employer] generated this result transmitted ref erence range: 1.32 - 3 .57 K/L. The refe rence range was not u sed to interpret this result as normal/abnor mal. # Monos (test code = 0.40 See_Comment [Autom ated message] 415) The system [employer] generated this result transmitted ref erence range: 0.30 - 0 .82 K/L. The refe rence range was not u sed to interpret this result as normal/abnor mal. # Eos (test code = 416) 0.23 See_Comment [Au tomated message] The system [employer] generated this result transmitted ref erence range: 0.04 - 0 .54 K/L. The refe rence range was not u sed to interpret this result as normal/abnor mal. # Baso (test code = 417) 0.06 See_Comment [A utomated message] The system [employer] generated this result transmitted ref erence range: 0.01 - 0 .08 K/L. The refe rence range was not u sed to interpret this result as normal/abnor mal. Immature 0 % 0-1 Granulocytes-Relative (test code = 2801) Lab Interpretation (test Abnormal code = 52868-3) [facility] W/PLT COUNT & AUTO [id number] 10:37:00 Test Item Value Reference Range Interpretation Comments WHITE BLOOD CELL COUNT (BEAKER) 7.3 K/ L 3.5-10.5 (test code = 775) RED BLOOD CELL COUNT (BEAKER) 4.64 M/ L 4.63-6.08 (test code = 761) HEMOGLOBIN (BEAKER) (test code = 14.1 GM/DL 13.7-17.5 410) HEMATOCRIT (BEAKER) (test code = 43.5 % 40.1-51.0 411) MEAN CORPUSCULAR VOLUME (BEAKER) 93.8 fL 79.0-92.2 H (test code = 753) MEAN CORPUSCULAR HEMOGLOBIN 30.4 pg 25.7-32.2 (BEAKER) (test code = 751) MEAN CORPUSCULAR HEMOGLOBIN CONC 32.4 GM/DL 32.3-36.5 (BEAKER) (test code = 752) RED CELL DISTRIBUTION WIDTH 14.2 % 11.6-14.4 (BEAKER) (test code = 412) PLATELET COUNT (BEAKER) (test 193 K/CU MM 150-450 code = 756) MEAN PLATELET VOLUME (BEAKER) 11.2 fL 9.4-12.4 (test code = 754) NUCLEATED RED BLOOD CELLS 0 /100 WBC 0-0 (BEAKER) (test code = 413) NEUTROPHILS RELATIVE PERCENT 62 % (BEAKER) (test code = 429) LYMPHOCYTES RELATIVE PERCENT 28 % (BEAKER) (test code = 430) MONOCYTES RELATIVE PERCENT 6 % (BEAKER) (test code = 431) EOSINOPHILS RELATIVE PERCENT 3 % (BEAKER) (test code = 432) BASOPHILS RELATIVE PERCENT 1 % (BEAKER) (test code = 437) NEUTROPHILS ABSOLUTE COUNT 4.54 K/ L 1.78-5.38 (BEAKER) (test code = 670) LYMPHOCYTES ABSOLUTE COUNT 2.08 K/ L 1.32-3.57 (BEAKER) (test code = 414) MONOCYTES ABSOLUTE COUNT (BEAKER) 0.40 K/ L 0.30-0.82 (test code = 415) EOSINOPHILS ABSOLUTE COUNT 0.23 K/ L 0.04-0.54 (BEAKER) (test code = 416) BASOPHILS ABSOLUTE COUNT (BEAKER) 0.06 K/ L 0.01-0.08 (test code = 417) IMMATURE GRANULOCYTES-RELATIVE 0 % 0-1 PERCENT (BEAKER) (test code = 2801) [id number] 14:51:00 Test Item Value Reference Range Interpretation Comments SURG (test code = SURG) RUN DATE: 08/28/20 [facility] PAGE 1 RUN TIME: 1451 Specimen Inquiry RUN USER: INTERFACE PATIENT: MARGARITA NOONAN #: [id number] LOC: ANT Giron #: [id number] AGE/SX: 55/M ROOM: RE08/27/20REG DR: Tiff Estrada MD : 63 BED: DIS: STATUS: [facility] TLOC: SPEC #: [id number]:[id number] RECD: 08/27/20 STATUS: TAYLOR JACEY #: [id number] MATT: 08/27/[address]: Tiff Estrada MD ENTERED: 08/27/20 SP TYPE: SURG OTHR DR: Sybil Moody ORDERED: SURG PATH LVL 4 COPIES TO: Sybil Moody [address] [id number] Tiff Estrada MD [address] [place] [address] HISTOLOGY: TISSUE ID BLK PCS VERONICA LEV PROCEDURE DISPOSITION ____ ___ ___ ___ STOMACH, NOS A 1 2 PROCEDURES: SURG PATH LVL 4 (08/27/20) TISSUES: A. STOMACH, NOS - GASTRIC BODY AND GASTRIC BIOPSY CLINICAL HISTORY DUODENAL MASS - K31.89 CPT CODES CPT CODE(S): 74433 , , , , , , FINAL DIAGNOSIS Stomach, body, biopsy: MILD CHRONIC GASTRITIS NEGATIVE FOR INTESTINAL METAPLASIA, DYSPLASIA, OR MALIGNANCY NEGATIVE FOR HELICOBACTER PYLORI ORGANISMS CONTINUED ON NEXT PAGE RUN DATE: 08/28/20 [facility] - LAB PAGE 2 RUN TIME: 1450 Specimen Inquiry RUN USER: INTERFACE SPEC #: [facility]:[id number] PATIENT: MARGARITA NOONAN #[id number] (Continued) GROSS DESCRIPTION Gastric body and gastric biopsy. Received in formalin are two ruvalcaba tissue fragments, 0.2 and 0.5 cm, all as A. ba/nr Grossing performed at [facility] Pathology, [address] [place] [address], [address], [place] [address]. Forestry Farm Laborer: Quentin Infante M.D. MICROSCOPIC DESCRIPTION Gastric body and gastric biopsy. Sections demonstrate gastric mucosa with mild chronic inflammation. No dysplasia or malignancy is identified. No evidence of intestinal metaplasia or Helicobacter pylori organisms is seen. Signed SIGNATURE ON FILE Amadeo Poe 08/28/20 2083 END OF REPORT GLUCOSE BEDSIDE [id number] 06:24:00 Test Item Value Reference Range Interpretation Comments GLUCOSE BEDSIDE TESTING (test code 138 mg/dL 70-110 H = GLUBED) COVID 19 INHOUSE [id number] 13:07:00 Test Item Value Reference Range Interpretation Comments COVID 19 INHOUSE AG NEGATIVE Negative Per casey facturer, (test code = negative result s should [id number]) be treated aspr esumptive and, if inconsi stent with clinical signs andsymptoms or necessary for patient man agement, should betested with an alternative mol ecular assay. Negative resultsdo not preclude SA RS-CoV-2 infection and s hould not be usedas the s ole basis for patient man agement decisions. Neg ative results should be considered in t he context of apatient's r ecent exposures, hist ory, presence of cli nicalsigns and symptoms co nsistent with COVID-19. Spec Comments: PRE OPBASIC METABOLIC [id number] 12:59:00 Test Item Value Reference Range Interpretation Comments SODIUM (test code = NA) 135 mmol/L 134-147 N POTASSIUM (test code = K) 4.3 mmol/L 3.4-5.0 N CHLORIDE (test code = CL) 101 mmol/L 100-108 N CARBON DIOXIDE (test code = CO2) 28 mmol/L 21-32 N ANION GAP (test code = GAP) 6.0 GAP calc 4.0-15.0 N GLUCOSE (test code = GLU) 273 MG/DL 70-110 H BLOOD UREA NITROGEN (test code = 34 MG/DL 7-18 H BUN) GLOMERULAR FILTRATION RATE (test 42 estGFR >60 L code = GFR) CREATININE (test code = CREAT) 1.8 MG/DL 0.8-1.3 H CALCIUM (test code = CA) 9.0 MG/DL 8.5-10.1 N CBC W/AUTO [id number] 12:52:00 Test Item Value Reference Range Interpretation Comments WHITE BLOOD CELL (test code = 7.0 K/mm3 3.5-11.0 N WBC) RED BLOOD CELL (test code = 4.27 M/mm3 4.70-6.10 L RBC) HEMOGLOBIN (test code = HGB) 13.4 G/DL 12.3-15.9 N HEMATOCRIT (test code = HCT) 40.2 % 35.8-46.7 N MEAN CELL VOLUME (test code = 94.1 Fl 86.3-98.9 N MCV) MEAN CELL HGB (test code = MCH) 31.4 pg 28.9-34.4 N MEAN CELL HGB CONCETRATION 33.3 G/DL 32.1-34.5 N (test code = MCHC) RED CELL DISTRIBUTION WIDTH 14.1 SD 11.5-14.5 N (test code = RDW) PLATELET COUNT (test code = 209 K/mm3 150-450 N PLT) MEAN PLATELET VOLUME (test code 11.10 fL 7.0-9.6 H = MPV) NEUTROPHIL % (test code = NT%) 73.0 % 40-76 N IMMATURE GRANULOCYTE % (test 0.3 % 0.0-5.0 N code = IG%) LYMPHOCYTE % (test code = LY%) 16.2 % 20.5-51.1 L MONOCYTE % (test code = MO%) 6.7 % 1.7-9.3 N EOSINOPHIL % (test code = EO%) 2.8 % 0.0-6.0 N BASOPHIL % (test code = BA%) 1.0 % 0.0-2.0 N NUCLEATED RBC % (test code = 1.0 /100WBC% 0.0-1.0 N NRBC%) NEUTROPHIL # (test code = NT#) 5.1 K/mm3 1.8-7.6 N IMMATURE GRANULOCYTE # (test 0.02 x10 3/uL 0.00-0.03 N code = IG#) LYMPHOCYTE # (test code = LY#) 1.1 K/mm3 0.6-3.0 N MONOCYTE # (test code = MO#) 0.5 K/mm3 0.2-1.5 N EOSINOPHIL # (test code = EO#) 0.2 K/mm3 0.0-0.4 N BASOPHIL # (test code = BA#) 0.1 K/mm3 0.0-0.2 N NUCLEATED RBC # (test code = 0.1 K/mm3 0.00-0.01 H NRBC#) MANUAL DIFF REQUIRED (test code NO DIFF/SCN CRITERIA = MDIFF) [id number] 14:47:00 Test Item Value Reference Range Interpretation Comments SURG (test code = SURG) RUN DATE: 06/11/20 [facility] PAGE 1 RUN TIME: 1447 Specimen Inquiry RUN USER: INTERFACE PATIENT: MARGARITA NOONAN LOC: ANT U #: [id number] AGE/SX: 55/M ROOM: RE06/09/20REG DR: Bubba Taylor MD : 63 BED: DIS: STATUS: DEP [facility] TLOC: SPEC #: [id number] RECD: 06/09/20 STATUS: TAYLOR MARI #: [id number] MATT: 06/09/[address] [facility] [address]: Bubba Taylor MD ENTERED: 06/09/20 SP TYPE: SURG OTHR DR: Sybil Moody ORDERED: SURG PATH LVL / COPIES TO: Sybil MoodyP [address] [facility] [address] [place] [id number] Bubba Taylor MD [address] [place] [address] HISTOLOGY: TISSUE ID BLK PCS VERONICA LEV PROCEDURE DISPOSITION ____ ___ ___ ___ DUODENUM, NOS A 1 2 STOMACH, NOS B 1 2 ESOPHAGUS, NOS C 1 2 PROCEDURES: SURG PATH LVL 4 (06/09/20) TISSUES: A. DUODENUM, NOS - DUODENUM MASS BIOPSY B. STOMACH, NOS - ANTRUM AND BODY BIOPSY C. ESOPHAGUS, NOS - DISTAL ESOPHAGUS BIOPSY CLINICAL HISTORY IMAGING OF GASTROINTESTINAL TRACT - R93.3 CPT CODES CPT CODE(S): 52265J2 , , , , , , FINAL DIAGNOSIS A. Small intestine, duodenum, biopsy: DUODENUM WITH FERNANDO'S GLAND HYPERPLASIA B. Stomach, antrum and body, biopsy: MILD CHRONIC GASTRITIS CONTINUED ON NEXT PAGE RUN DATE: 06/11/20 [facility] PAGE 2 RUN TIME: 1447 Specimen Inquiry RUN USER: INTERFACE SPEC #: [facility]:[id number] PATIENT: MARGARITA NOONAN #[id number] (Continued) FINAL DIAGNOSIS (Continued) NEGATIVE FOR INTESTINAL METAPLASIA, DYSPLASIA, OR MALIGNANCY NEGATIVE FOR HELICOBACTER PYLORI ORGANISM C. Esophagus, distal, biopsy: REFLUX ESOPHAGITIS WITH ACUTE AND CHRONIC CARDITIS NEGATIVE FOR INTESTINAL METAPLASIA, DYSPLASIA, OR MALIGNANCY GROSS DESCRIPTION A. Duodenal mass biopsy. Received in formalin are three ruvalcaba tissue fragments, 0.2 - 0.4 cm, all as A. B. Antrum and body biopsy. Received in formalin are three ruvalcaba tissue fragments, 0.2 - 0.4 cm, all as B. C. Distal esophagus biopsy. Received in formalin are two ruvalcaba tissue fragments, 0.2 cm each, all as C. bk/nr Grossing performed at [facility] Pathology, [address] [place] [address], [address], [place] [address]. Forestry Farm Laborer: Quentin Infante M.D. MICROSCOPIC DESCRIPTION A. Duodenal mass biopsy. Sections demonstrate duodenum with associated villi. Prominent Fernando's gland tissue is also identified. No evidence of dysplasia or malignancy is seen. No prominent villous blunting is identified. B. Antrum and body biopsy. Sections demonstrate gastric mucosa with mild chronic inflammation. No dysplasia or malignancy is identified. No evidence of Helicobacter pylori organisms or intestinal metaplasia is seen. C. Distal esophagus biopsy. Sections demonstrate squamous mucosa with basal cell hyperplasia and elongated papillae. Gastric cardia type mucosa with acute and chronic inflammation is seen. The mucosa demonstrates a reactive appearance. No dysplasia or malignancy is identified. No evidence of intestinal metaplasia is seen. Signed SIGNATURE ON FILE Amadeo Poe 06/11/20 1447 END OF REPORT GLUCOSE BEDSIDE [id number] 07:24:00 Test Item Value Reference Range Interpretation Comments GLUCOSE BEDSIDE TESTING (test code 218 mg/dL 70-110 H = GLUBED) COVID 19 INHOUSE [id number] 10:51:00 Test Item Value Reference Range Interpretation Comments COVID 19 INHOUSE AG NEGATIVE Negative Per aver[facility], (test code = negative result s should [id number]) be treated aspr esumptive and, if inconsi stent with clinical signs andsymptoms or necessary for patient man agement, should betested with an alternative mol ecular assay. Negative resultsdo not preclude SA RS-CoV-2 infection and s hould not be usedas the s ole basis for patient man agement decisions. Neg ative results should be considered in t he context of apatient's r ecent exposures, hist ory, presence of cli nicalsigns and symptoms co nsistent with COVID-19. BASIC METABOLIC [id number] 10:41:00 Test Item Value Reference Range Interpretation Comments SODIUM (test code = NA) 137 mmol/L 134-147 N POTASSIUM (test code = K) 4.5 mmol/L 3.4-5.0 N CHLORIDE (test code = CL) 103 mmol/L 100-108 N CARBON DIOXIDE (test code = CO2) 30 mmol/L 21-32 N ANION GAP (test code = GAP) 4.0 GAP calc 4.0-15.0 N GLUCOSE (test code = GLU) 261 MG/DL 70-110 H BLOOD UREA NITROGEN (test code = 27 MG/DL 7-18 H BUN) GLOMERULAR FILTRATION RATE (test 51 estGFR >60 L code = GFR) CREATININE (test code = CREAT) 1.5 MG/DL 0.8-1.3 H CALCIUM (test code = CA) 9.2 MG/DL 8.5-10.1 N CBC W/AUTO [id number] 10:25:00 Test Item Value Reference Range Interpretation Comments WHITE BLOOD CELL (test code = 7.0 K/mm3 3.5-11.0 N WBC) RED BLOOD CELL (test code = 4.78 M/mm3 4.70-6.10 N RBC) HEMOGLOBIN (test code = HGB) 14.7 G/DL 12.3-15.9 N HEMATOCRIT (test code = HCT) 45.3 % 35.8-46.7 N MEAN CELL VOLUME (test code = 94.8 Fl 86.3-98.9 N MCV) MEAN CELL HGB (test code = MCH) 30.8 pg 28.9-34.4 N MEAN CELL HGB CONCETRATION 32.5 G/DL 32.1-34.5 N (test code = MCHC) RED CELL DISTRIBUTION WIDTH 13.7 SD 11.5-14.5 N (test code = RDW) PLATELET COUNT (test code = 212 K/mm3 150-450 N PLT) MEAN PLATELET VOLUME (test code 11.50 fL 7.0-9.6 H = MPV) NEUTROPHIL % (test code = NT%) 59.8 % 40-76 N IMMATURE GRANULOCYTE % (test 0.3 % 0.0-5.0 N code = IG%) LYMPHOCYTE % (test code = LY%) 30.2 % 20.5-51.1 N MONOCYTE % (test code = MO%) 5.7 % 1.7-9.3 N EOSINOPHIL % (test code = EO%) 3.1 % 0.0-6.0 N BASOPHIL % (test code = BA%) 0.9 % 0.0-2.0 N NUCLEATED RBC % (test code = 0.0 /100WBC% 0.0-1.0 N NRBC%) NEUTROPHIL # (test code = NT#) 4.2 K/mm3 1.8-7.6 N IMMATURE GRANULOCYTE # (test 0.02 x10 3/uL 0.00-0.03 N code = IG#) LYMPHOCYTE # (test code = LY#) 2.1 K/mm3 0.6-3.0 N MONOCYTE # (test code = MO#) 0.4 K/mm3 0.2-1.5 N EOSINOPHIL # (test code = EO#) 0.2 K/mm3 0.0-0.4 N BASOPHIL # (test code = BA#) 0.1 K/mm3 0.0-0.2 N NUCLEATED RBC # (test code = 0.0 K/mm3 0.00-0.01 N NRBC#) MANUAL DIFF REQUIRED (test code NO DIFF/SCN CRITERIA = MDIFF) [id number] 13:21:00 Test Item Value Reference Range Interpretation Comments GLUBED (test code = 279 MG/DL 70-110 H Performe d by certified GLUBED) 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 - XR CHEST 1 [id number] 05:51:00 FAX: Rudy Chilel [phone] [place]: St: [facility] FAX: Deshaun Frost NP [phone] Name: MARGARITA NOONAN [facility] : 1965 Age/S: 54/M [address] [place] [address] Unit #: [id number] Loc: G.5517 [place] [address] Phys: SantoshPeedeysi RIBEIRO Acct: [id number] Dis Date: Status: ADM IN PHONE #: [phone] Exam Date: 03/19/2020541 FAX #: [phone] Reason: Post PM/ICD EXAMS: CPT CODE: [id number] XR CHEST 1 V 56381 Chest x-ray 1 view History: Post pacemaker/ICD Comparison: Plain film 03/18/2020, 03/14/2020 Findings: Mediastinum: The cardiomediastinal contours are unremarkable. Lungs and pleural spaces: Left suprahilar and left basilar opacities are redemonstrated, similar to the comparison study and may represent subsegmental atelectasis or infiltrate. Asymmetric left apical pleural thickening is redemonstrated similar to the previous procedure film on 03/14/2020. Sternotomy wires. A couple chronic right- sided rib fractures are redemonstrated. Left chest wall dual-lead ICD is noted. Vascular stent projects over the inferior right neck. Impression: Similar exam findings without acute interval change. No pneumothorax. Left suprahilar and basilar opacities are unchanged. Asymmetrical left apicalpleural thickening is redemonstrated, similar to the preprocedure film dated 03/14/2020. Comparison to older films or follow-up CT is recommended to document stability and exclude underlying mass. AICD. Post sternotomy changes. at 0587 Reported andsigned by: Danielle Adame M.D. PAGE 1 Signed Report (CONTINUED) FAX: Rudy Chilel [phone] [place]: St: ADM FAX: Deshaun Frost NP [phone] Name: MARGARITA NOONAN [facility] : 1965Age/S: 54/M [address] [place] [address] Blvd Unit #: [id number] Loc: G.5517 [place] [address] Phys: Deshaun Frost NP Acct: [id number] Dis Date: Status: ADM IN PHONE #:[phone] Exam Date: 03/19/2020 0542 FAX #: [phone] Reason: Post PM/ICD EXAMS: CPT CODE: [id number] XR CHEST 1 V 93933 <Continued> CC: Rudy Vargas MD; Deshaun Frost NP Technologist: Marin Mejia, RT(R); Holli Emanuel RT(R) Trnkyrd Date/Time/By: 03/19/2020 (0551) : By: [email or web address] Backtrace I/O Print D/T: S: 03/19/2020 (0554) PAGE 2 Signed Report [id number] 03:52:00 Test Item Value Reference Range Interpretation Comments GLUBED (test code = 274 MG/DL 70-110 H Performe d by certified GLUBED) 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 - XR CHEST 1 [id number] 16:35:00 FAX: Rudy Chilel [phone] [place]: St: ADM FAX: Deshaun Frost NP [phone] [facility] 1965 [facility]S: 54[facility]M [address] [place] [address] Blvd Unit #: [id number] Loc: [place] [address] Phys: Deshaun Frost NP Acct: Samuel [id number] Dis Date: Status: ADM IN PHONE #: [phone] Exam Date: 03/18/2020 1633 FAX #: [phone] Reason: Post PM/ICD EXAMS: CPT CODE: [id number] XR CHEST 1 V 85770 Portable single view AP chest INDICATION: Post pacemaker/ICD placement Comparison: 03/14/2020 chest x-rays Findings: The cardiomediastinal silhouette is enlarged and relatively stable. There is interval placement of dual-lead left-sided transvenous pacing device. No left pneumothorax is visualized. Mild/moderate left apical pleural thickening is once again seen with mild/moderate patchy ill-defined opacities in the left upper and lower lungs without significant change from prior study. A component of volume loss in the left lung isseen and some of these findings if not all could be chronic. The right lung is well inflated and clear. The costophrenic angles are sharp. Sternotomy wires are seen. IMPRESSION: Left chest transvenous pacing device placement. Otherwise, stable chest. SL: SG-H at 1635 Reported and signed by: Felipe Meyers M.D. CC: Rudy Vargas MD; Deshaun Frost NP Technologist: Erika Meyers RT(R) Trnscrd Date/Time/By: 03/18/2020 (1635) : By: [email or web address] Orig Print D/T: S: 03/18/2020 (8164) PAGE 1 S igned ReportNovel Coronavirus 2018 [id number] 00:29:00 Test Item Value Reference Range Interpretation Comments Novel Coronavirus Negative Negative Positive r esults are 2019 Inhouse (test indicativ e of the presence code = COVNONPUI) ofSARS-CoV -2 RNA, clinical correlation wit h patient historyand othe r diagnostic info rmation is necessary to determinepatien t infection status. Positiv e results do not rule out bacterial infection or co -infection with other viru ses. Negative result s do not preclude SARS-C oV-2 infection andsh ould not be used as the adrian e basis for patient managementdecis ions. Negative result s must be combined with otherclinical observations, p atient history, and epidemiological information . Detection of SARS-CoV-2 RNA may be affe cted bysample collec tion methods, storag e conditions, and /or stageof infection. Radha l RNA mutations, vacc inations, antiviraltherap eutics, antibiotics, chemotherapeuti c orimmunosuppres mary drugs have not been e valuated for effectson d etection. Results are for the identification of SARS-CoV-2 RNA usingthe [employer] M2000 Sy stem under the FDA Emergen cy UseAuthorizatio n. The testing is perf ormed by personneltramoreno d in the procedures for the [employer] M2000 molecular diagnostic SARS-CoV-2 assa y in vitro. - XR CHEST 2 [id number] 11:03:00 FAX: Rudy Chilel [phone] [place]: St: PRE Name: MARGARITA NOONAN [facility] : 1965 Age/S: 54/M [address] [place] [address] Unit#: [id number] Loc: [place] [address] Phys: Rudy Vargas MD Acct: [id number] Dis Date: Status: PRE [facility] PHONE #: [phone] Exam Date: 03/14/2020 1030 FAX #: [phone] Reason: PREOP EXAMS: CPT CODE: [id number] XR CHEST 2 V 90326 CLINICAL HISTORY: PREOP COMPARISON: NONE PA and lateral films of the chest demonstrate sternotomy sutures as well as postsurgicalchanges in the left hemithorax. Vascular stent in the neck on the right side is also present. Heart size is normal. Right lung appears clear. There is evidence of interstitial opacities in the left lung. In addition, there are confluent patchy opacities present at the left lung base. This may represent pneumonia or localized edema in this location. Clinical correlation and follow-up examination to clearing is recommended to exclude underlying pulmonary nodule. Pleural reaction is also present on the left side probably from prior surgery. Fracture of the anterior portion of the right 9th rib is seen of uncertain age. There is also, impression on the trachea on the right side which may be from thyroid nodule. Thyroid ultrasound is recommended for further evaluation. IMPRESSION: 1. Interstitial opacities in the left lung as well as confluent opacity at the left lung base which may be from pneumonia or other etiology. Clinical correlation is recommended. Depending on clinical concern, computed tomography would be helpful for further evaluation. 2. Postsurgical changes in the left hemithorax. 3. Impression on the trachea on the right side, most likely from thyroid nodule. Ultrasound examination of thyroid is recommended for further evaluation. 4. Fracture of right 9th rib, indeterminate age. at 1103 Reportedand signed by: Ajay Werner M.D. CC: Rudy Vargas MD Technologist: Mike LUNDY(Jessica)(CT) Trnscrd Date/Time/By: 03/14/2020 (1103) : By: Catie Orig Print D/T: S: 03/14/2020 (1106) PAGE 1 Signed ReportBASIC METABOLIC [id number] 10:21:00 Test Item Value Reference Range Interpretation Comments SODIUM (test code = NA) 137 mEq/L 134-147 N POTASSIUM (test code = 3.7 mEq/L 3.4-5.0 N K) CHLORIDE (test code = 100 mEq/L 100-108 N CL) CARBON DIOXIDE (test 31 mEq/L 21-33 N code = CO2) ANION GAP (test code = 10 0-20 N GAP) GLUCOSE (test code = 266 mg/dL 70-110 H GLU) BLOOD UREA NITROGEN 31 mg/dL 7-18 H (test code = BUN) GLOMERULAR FILTRATION 42.1 90-95 L Units of measure = RATE (test code = GFR) ml/mi n/1.73 m2 CREATININE (test code = 1.7 mg/dL 0.6-1.3 H CREAT) CALCIUM (test code = 9.6 mg/dL 8.0-10.5 N CA) PROTHROMBIN [id number] 10:06:00 Test Item Value Reference Range Interpretation Comments PROTHROMBIN TIME 10.5 SECONDS 9.3-12.9 N PATIENT (test code = PTP) INTERNATIONAL NORMAL 1.0 0.8-1.2 N TARGET RATIO (test code = INR BY IN DICATION INR) Indication INR1. Prophyl axis of venous thrombos is 2.0 - 3. 0 (orthopedic jade rusty), Prophylaxis of venous thrombos is (other than hig h-risk surgery), Jazmin tment of Deep Vein Thrombosis/Pulm onary Embolism, Preve ntion of systemic emb olism - Tissue heart va lves, Acute Myocardia l Infarction (to prevent systemic embo lism), Valvular heart disease, Atri al Fibrillation, Bileaflet mecha nical valve in aortic position.2. Mec hanical prosthetic valv es (high risk), 2.5 - 3.5 Presence of Lupus Anticoagu lant or Antiphospholi pid Antibodies, Pre vention of systemic e mbolism - Acute Myocard ial Infarction (t o prevent recurre nt infarct). CBC W/AUTO [id number] 09:59:00 Test Item Value Reference Range Interpretation Comments WHITE BLOOD CELL (test code = 8.00 x10 3/uL 4.5-11.0 N WBC) RED BLOOD CELL (test code = 4.62 x10 6/uL 4.00-5.60 N RBC) HEMOGLOBIN (test code = HGB) 14.3 g/dL 12.5-16.9 N HEMATOCRIT (test code = HCT) 45.0 % 37.5-50.7 N MEAN CELL VOLUME (test code = 97.4 fL 81.0-99.0 N MCV) MEAN CELL HGB (test code = MCH) 31.0 pg 27.0-33.0 N MEAN CELL HGB CONCETRATION 31.8 g/dL 33.0-37.0 L (test code = MCHC) RED CELL DISTRIBUTION WIDTH CV 14.1 % 11.5-14.5 N (test code = RDW) RED CELL DISTRIBUTION WIDTH SD 51.1 fL 37.0-54.0 N (test code = RDW-SD) PLATELET COUNT (test code = 192 x10 3/uL 150-400 N PLT) MEAN PLATELET VOLUME (test code 11.5 fL 7.0-9.0 H = MPV) NEUTROPHIL % (test code = NT%) 63.5 % 56.0-77.0 N IMMATURE GRANULOCYTE % (test 0.3 % 0.0-2.0 N code = IG%) LYMPHOCYTE % (test code = LY%) 25.9 % 14.0-32.0 N MONOCYTE % (test code = MO%) 6.1 % 4.8-9.0 N EOSINOPHIL % (test code = EO%) 3.4 % 0.3-3.7 N BASOPHIL % (test code = BA%) 0.8 % 0.0-2.0 N NUCLEATED RBC % (test code = 0.0 % 0-0 N NRBC%) NEUTROPHIL # (test code = NT#) 5.09 x10 3/uL 2.0-7.6 N IMMATURE GRANULOCYTE # (test 0.02 x10 3/uL 0.00-0.03 N code = IG#) LYMPHOCYTE # (test code = LY#) 2.07 x10 3/uL 1.0-3.8 N MONOCYTE # (test code = MO#) 0.49 x10 3/uL 0.1-0.8 N EOSINOPHIL # (test code = EO#) 0.27 x10 3/uL 0.0-0.2 H BASOPHIL # (test code = BA#) 0.06 x10 3/uL 0.0-0.2 N NUCLEATED RBC # (test code = 0.00 x10 3/uL 0.0-0.1 N NRBC#) MANUAL DIFF REQUIRED (test code NO = MDIFF) SARS-COV2/RT-PCR ([facility])2020-01-03 13:05:00 Test Item Value Reference Range Interpretation Comments SARS-COV2/RT-PCR (test code = Negative Not Detected, Negative [id number]) SARS-COV-2 PERFORMING LAB [facility] (test code = [id number]) Negative result for this test determines that SARS-CoV-2 RNA was not present in the specimen above the Limit of Detection (LOD). However, Negative results do not preclude SARS-CoV-2 infection and should not be used as the sole basis for treatment or patient management decisions. Negative results mustbe combined with clinical observations, patient history, and epidemiological information. A false negative result may occur if a specimen is improperly collected, transported or handled. A false negative result should be considered if patient's recent exposures or clinical presentation indicate that COVID-19 (SARS-CoV-2) is likely and diagnostic tests for other causes of illness are negative. Re-testing should be considered in cases of suspected false negatives.The limit of detection for this assay is 800 copies/mL.This SARS CoV-2 test is a real-time RT-PCR test intended for the qualitative detection of nucleic acid from SARS-CoV-2 in a nasopharyngeal swab specimen collected from individuals susp ected of COVID-19 by their healthcare provider.This test has not been Food and Drug Administration (FDA) cleared or approved. This is a modified version of an approved Emergency Use Authorization (EUA) and is in the process of review by the FDA. Once authorized by the FDA, the issued EUA will be effective until the declaration that circumstances exist justifying the authorization of the emergency use of in vitro diagnostic tests for detection and/or diagnosis of COVID-19 is terminated under Section 564(b)(2) of the Act or the EUA is revoked under Section 564(g) of the Act.Fact Sheet for Healthcare Providers:https://www.[employer].com/sites/default/files/product/documents/Fact_Shee a_WN_Pgirczxjj_Hoom_QOSN-HsA-3.pdfFact Sheet for Healthcare Patients:https://www.[employer].com/sites/default/files/product/ documents/Xbtn_Ejnfm_Mkipnebs_Lyvy_GKZU-SuL-6.pdfPerforming Laboratory:[facility].[place], [place] [address]GQWVUZBL AGGREGATION: FUNCTION [id number] 09:51:00 Test Item Value Reference Range Interpretation Comments WEAK ADP 7 % 60-91 L RESULT(ASHLEY) (test code = 2135) PLATELET FUNCTION 0-39% indicates marked SCREEN INTERP platelet dysfunction ([facility]LEY) (test code = 2173) [id number] Jannette Bryant MD (BEAKER) (test code = (electronic signature) 2726) PLATELET COUNT AGG 198 K/CU MM 150-450 (BEAKER) (test code = 3990) POCT-GLUCOSE [id number] 09:13:00 Test Item Value Reference Range Interpretation Comments POC-GLUCOSE METER 368 mg/dL 70-110 H TESTED AT [facility] 6720 (BEAKER) (test code = [place] [address]) [address] BASIC METABOLIC [id number] 04:10:00 Test Item Value Reference Range Interpretation [...] 753) MEAN CORPUSCULAR HEMOGLOBIN 28.8 pg 25.7-32.2 ([facility]) (test code = 751) MEAN CORPUSCULAR HEMOGLOBIN CONC 32.1 GM/DL 32.3-36.5 L ([facility]) (test code = 752) RED CELL DISTRIBUTION WIDTH 14.6 % 11.6-14.4 H ([facility]) (test code = 412) PLATELET COUNT ([facility]) (test 194 K/CU MM 150-450 code = 756) MEAN PLATELET VOLUME ([facility]) 11.4 fL 9.4-12.4 (test code = 754) NUCLEATED RED BLOOD CELLS 0 /100 WBC 0-0 ([facility]) (test code = 413) POCT-GLUCOSE [id number] 22:59:00 Test Item Value Reference Range Interpretation Comments POC-GLUCOSE METER 281 mg/dL 70-110 H TESTED AT [place] [address] ([facility]) (test code = [place] [address]) [address] POCT-GLUCOSE [id number] 17:19:00 Test Item Value Reference Range Interpretation Comments POC-GLUCOSE METER 398 mg/dL 70-110 H TESTED AT [place] [address] ([facility]) (test code = [place] [address]) [address] [id number] 15:41:00 Test Item Value Reference Range Interpretation Comments ACTIVATED CLOTTING TIME 131 sec TEST ED AT [place] [address] ([facility]) (test code = [place] [address]) [address] [id number] 14:07:00 Test Item Value Reference Range Interpretation Comments ACTIVATED CLOTTING TIME 142 sec TEST ED AT [place] [address] ([facility]) (test code = [place] [address]) [address] [id number] 09:52:00 Test Item Value Reference Range Interpretation Comments ACTIVATED CLOTTING TIME 362 sec TEST ED AT [place] [address] ([facility]) (test code = [place] [address]) [address] POCT-GLUCOSE [id number] 07:42:00 Test Item Value Reference Range Interpretation Comments POC-GLUCOSE METER 196 mg/dL 70-110 H TESTED AT [place] [address] ([facility]) (test code = [place] 1538) [address] MR, MRA, BRAIN, [id number] 13:28:00FINAL REPORT MRA head, arch, great vessels, and neck CLINICAL HISTORY: RIGHT CAROTID STENOSIS TECHNIQUE: 2-D and 3-D rzal-hr-ppacpy and postcontrast MRA of the head, arch, greatvessels, and neck was provided with maximal intensity projection 3-D reconstructions of the arterialvasculature. COMPARISON: None FINDINGS: There is no evidence for a [place] proximal branch vessel occlusion. There [...] cervical vertebral artery. No evidence for a [place] of [place]olph proximal branch vessel oc clusion. Signed: Mya Avila MDReport Verified Date/Time: 12/01/2017 13:28:07 Reading Location: [address] Consult Reading Room MR, MRA, NECK, [id number] 13:28:00FINAL REPORT MRA head, arch, great vessels, and neck CLINICAL HISTORY: RIGHT CAROTID STENOSIS TECHNIQUE: 2-D and 3-D xudf-kt-ghlpch and postcontrast MRA of the head, arch, greatvessels, and neck was provided with maximal intensity projection 3-D reconstructions of the arterialvasculature. COMPARISON: None FINDINGS: There is no evidence for a [place] of [place]olph proximal branch vessel occlusion. There [...] cervical vertebral artery. No evidence for a [place] of [place]olph proximal branch vessel occlusion. Signed: Mya Avila MDReport Verified Date/Time: 12/01/2017 13:28:07 Reading Location: [facility] [id number] Consult Reading Room [id number] 10:49:00 Test Item Value Reference Range Interpretation Comments POC-CREATININE 0.9 mg/dL 0.6-1.3 TESTED AT [facility] ([facility]) (test 2457 [facility] code = 1859) [facility] 7703 0 POC-EGFR 88 mL/min/1.73M2 ([facility]) (test code = 1860) POCT-GLUCOSE [id number] 11:54:00 Test Item Value Reference Range Interpretation Comments POC-GLUCOSE METER 297 mg/dL 70-110 H TESTED AT [facility] 67 ([facility]) (test code = MITCHELL Lopez [facility] 1538) [address] POCT-GLUCOSE [id number] 08:49:00 Test Item Value Reference Range Interpretation Comments POC-GLUCOSE METER 250 mg/dL 70-110 H TESTED AT [place] [address] ([facility]) (test code = MITCHELL Lopez [facility] 1538) 72000 CBC (HEMOGRAM ONLY)2016-11-08 07:15:00 Test Item Value Reference Range Interpretation Comments WHITE BLOOD CELL COUNT ([facility]) 7.3 K/ L 4.0-10.0 (test code = 775) RED BLOOD CELL COUNT ([facility]) 2.67 M/ L 4.20-5.80 L (test code = 761) HEMOGLOBIN ([facility]) (test code = 8.5 GM/DL 13.0-16.8 L 410) HEMATOCRIT ([facility]) (test code = 24.8 % 40.0-50.0 L 411) MEAN CORPUSCULAR VOLUME ([facility]) 92.9 fL 82.0-98.0 (test code = 753) MEAN CORPUSCULAR HEMOGLOBIN 31.6 pg 27.0-33.0 (BEAKER) (test code = 751) [...] WBC 0-0 (BEAKER) (test code = 413) [id number] 06:58:00 Test Item Value Reference Range Interpretation Comments MAGNESIUM (BEAKER) (test code = 2.1 mg/dL 1.6-2.6 627) BASIC METABOLIC [id number] 06:58:00 Test Item Value Reference Range Interpretation [...] NOT APPLICABLE FOR DIALYSIS PATIEN TS. POCT-GLUCOSE [id number] 21:04:00 Test Item Value Reference Range Interpretation Comments POC-GLUCOSE METER 166 mg/dL 70-110 H TESTED AT [facility] 6720 (BEAKER) (test code = [place] 8[address]) [address] POCT-GLUCOSE [id number] 17:37:00 Test Item Value Reference Range Interpretation Comments POC-GLUCOSE METER 153 mg/dL 70-110 H TESTED AT [place] [address] (BEAKER) (test code = [place]CHELL Lopez [facility] 1538) 9[address] POCT-GLUCOSE [id number] 17:04:00 Test Item Value Reference Range Interpretation Comments POC-GLUCOSE METER 106 mg/dL 70-110 TESTED AT [place] [address] (BEAKER) (test code = MITCHELL Lopez [facility] 1538) [address] POCT-GLUCOSE [id number] 15:06:00 Test Item Value Reference Range Interpretation Comments POC-GLUCOSE METER 76 mg/dL 70-110 TESTED AT [place] [address] (BEAKER) (test code = BANNERDARYA Lopez [facility] [address] 1538) POCT-GLUCOSE [id number] 12:32:00 Test Item Value Reference Range Interpretation Comments POC-GLUCOSE METER 156 mg/dL 70-110 H TESTED AT [place] [address] (BEAKER) (test code = [place] [facility] 1538) [address] POCT-GLUCOSE [id number] 08:10:00 Test Item Value Reference Range Interpretation Comments POC-GLUCOSE METER 153 mg/dL 70-110 H TESTED AT [place] [address] (BEAKER) (test code = [facility] Jessica [facility] 1538) [address] URINALYSIS W/ [id number] 07:06:00 Test Item Value Reference Range Interpretation [...] = 516) SOURCE(BEAKER) (test code = 2795) [id number] 04:51:00 Test Item Value Reference Range Interpretation Comments MAGNESIUM (BEAKER) (test code = 1.9 mg/dL 1.6-2.6 627) BASIC METABOLIC [id number] 04:51:00 Test Item Value Reference Range Interpretation [...] 753) MEAN CORPUSCULAR HEMOGLOBIN 31.4 pg 27.0-33.0 (AKER) (test code = 751) MEAN CORPUSCULAR HEMOGLOBIN CONC 33.9 GM/DL 32.0-36.0 ([facility]) (test code = 752) RED CELL DISTRIBUTION WIDTH 14.5 % 10.3-14.2 H ([facility]) (test code = 412) PLATELET COUNT ([facility]) (test 236 K/CU MM 150-430 code = 756) MEAN PLATELET VOLUME (AKER) 7.3 fL 6.5-10.5 (test code = 754) NUCLEATED RED BLOOD CELLS 0 /100 WBC 0-0 (AKER) (test code = 413) 0.00POCT-GLUCOSE [id number] 21:36:00 Test Item Value Reference Range Interpretation Comments POC-GLUCOSE METER 256 mg/dL 70-110 H TESTED AT [place] [address] ([facility]) (test code = [place] Lopez [facility] 1538) [address] POCT-GLUCOSE [id number] 18:23:00 Test Item Value Reference Range Interpretation Comments POC-GLUCOSE METER 137 mg/dL 70-110 H TESTED AT [place] [address] ([facility]) (test code = [place] Lopez [facility] 1538) 12405 POCT-GLUCOSE [id number] 17:09:00 Test Item Value Reference Range Interpretation Comments POC-GLUCOSE METER 120 mg/dL 70-110 H TESTED AT [place] [address] ([facility]) (test code = BANNERDARYA Lopez [facility] 1538) [address] POCT-GLUCOSE [id number] 12:21:00 Test Item Value Reference Range Interpretation Comments POC-GLUCOSE METER 129 mg/dL 70-110 H TESTED AT [place] [address] ([facility]) (test code = [facility] Jessica [place] 1538) [address] CBC (HEMOGRAM ONLY)2016-11-06 08:00:00 Test Item Value Reference Range Interpretation Comments WHITE BLOOD CELL COUNT ([facility]) 6.2 K/ L 4.0-10.0 (test code = 775) RED BLOOD CELL COUNT ([facility]) 2.40 M/ L 4.20-5.80 L (test code = 761) HEMOGLOBIN ([facility]) (test code = 7.2 GM/DL 13.0-16.8 L [...] 0-0 (BEAKER) (test code = 413) 0.00POCT-GLUCOSE [id number] 07:49:00 Test Item Value Reference Range Interpretation Comments POC-GLUCOSE METER 241 mg/dL 70-110 H TESTED AT [facility] 6720 (BEAKER) (test code = [place] 1538) [address] [id number] 06:49:00 Test Item Value Reference Range Interpretation Comments MAGNESIUM (BEAKER) (test code = 2.0 mg/dL 1.6-2.6 627) BASIC METABOLIC [id number] 06:49:00 Test Item Value Reference Range Interpretation [...] NOT APPLICABLE FOR DIALYSIS PATIEN TS. POCT-GLUCOSE [id number] 16:44:00 Test Item Value Reference Range Interpretation Comments POC-GLUCOSE METER 144 mg/dL 70-110 H TESTED AT [place] [address] ([facility]) (test code = [facility] 1538) 8[address] POCT-GLUCOSE [id number] 15:34:00 Test Item Value Reference Range Interpretation Comments POC-GLUCOSE METER 70 mg/dL 70-110 TESTED AT [place] [address] ([facility]) (test code = [facility] [address] 1538) POCT-GLUCOSE [id number] 15:00:00 Test Item Value Reference Range Interpretation Comments POC-GLUCOSE METER 49 mg/dL 70-110 L TESTED AT [place] [address] ([facility]) (test code = [facility] [address] 1538) POCT-GLUCOSE [id number] 13:01:00 Test Item Value Reference Range Interpretation Comments POC-GLUCOSE METER 202 mg/dL 70-110 H TESTED AT [place] [address] ([facility]) (test code = [facility] 1538) 15647 POCT-GLUCOSE [id number] 08:35:00 Test Item Value Reference Range Interpretation Comments POC-GLUCOSE METER 194 mg/dL 70-110 H TESTED AT [place] [address] ([facility]) (test code = [facility] 1538) [address] [id number] 04:08:00 Test Item Value Reference Range Interpretation Comments MAGNESIUM (BEAKER) (test code = 1.9 mg/dL 1.6-2.6 627) BASIC METABOLIC [id number] 04:08:00 Test Item Value Reference Range Interpretation [...] PATIEN TS. CBC W/PLT COUNT & AUTO [id number] 04:05:00 Test Item Value Reference Range Interpretation [...] L 0.00-0.20 (test code = 417) 0.00POCT-GLUCOSE [id number] 21:29:00 Test Item Value Reference Range Interpretation Comments POC-GLUCOSE METER 140 mg/dL 70-110 H TESTED AT [facility] 6720 (BEAKER) (test code = MITCHELL Lopez [facility] 1538) 61141 POCT-GLUCOSE [id number] 17:57:00 Test Item Value Reference Range Interpretation Comments POC-GLUCOSE METER 237 mg/dL 70-110 H TESTED AT [facility] 6720 [facility] (test code = [place] Lopez [facility] 1538) 95[address] TISSUE [id number] 15:18:00Surgical Pathology Report Case: [id number] Authorizing Provider: Jame Hurley MD Collected: 11/01/2016 1102 Ordering Location: [facility] Received: 11/01/2016 1336 PERIOPERATIVE SERVICES Pathologist: Ian Wang MD Specimen: Plaque, RCA PLAQUE HEART, CORONARY ARTERY, RIGHT, ATHERECTOMY:CALCIFIC ATHEROSCLEROTIC PLAQUEElectronically signed by Ian Wang MDon 11/04/2016 at 3:18 [id number]; [id number] plaqueThe specimen is received in saline labeled with the patient's information labeled "RCA plaque" and consists of a calcified tubular-shaped segment of tissue measuring 10.5 cm in length x 0.4 cm in diameter. Representatively submitted A1 for decalcificati on. CG/plPerformedPOCT-GLUCOSE [id number] 12:12:00 Test Item Value Reference Range Interpretation Comments POC-GLUCOSE METER 90 mg/dL 70-110 TESTED AT [facility] 6720 (BEAKER) (test code = [place] [address] 1538) POCT-GLUCOSE [id number] 08:56:00 Test Item Value Reference Range Interpretation Comments POC-GLUCOSE METER 215 mg/dL 70-110 H TESTED AT [facility] 6720 (BEAKER) (test code = [place] 1538) [address] [id number] 06:16:00 Test Item Value Reference Range Interpretation Comments MAGNESIUM (BEAKER) (test code = 2.1 mg/dL 1.6-2.6 627) BASIC METABOLIC [id number] 06:16:00 Test Item Value Reference Range Interpretation [...] PATIEN TS. CBC W/PLT COUNT & AUTO [id number] 05:46:00 Test Item Value Reference Range Interpretation [...] L 0.00-0.20 (test code = 417) 0.00POCT-GLUCOSE [id number] 05:03:00 Test Item Value Reference Range Interpretation Comments POC-GLUCOSE METER 142 mg/dL 70-110 H TESTED AT [place] [address] (BEAKER) (test code = [place] 1538) [address] POCT-GLUCOSE [id number] 20:57:00 Test Item Value Reference Range Interpretation Comments POC-GLUCOSE METER 256 mg/dL 70-110 H TESTED AT [place] [address] (BEAKER) (test code = MITCHELL Lopez [facility] 1538) [address]26 POCT-GLUCOSE [id number] 18:11:00 Test Item Value Reference Range Interpretation Comments POC-GLUCOSE METER 243 mg/dL 70-110 H TEST[facility] AT [place] [address] [facility] (test code = MITCHELL Lopez [facility] 1538) 82555 POCT-GLUCOSE [id number] 11:42:00 Test Item Value Reference Range Interpretation Comments POC-GLUCOSE METER 158 mg/dL 70-110 H TESTED AT [place] [address] ([facility]) (test code = [facility] Jessica [facility] 1538) 36079 POCT-GLUCOSE [id number] 09:13:00 Test Item Value Reference Range Interpretation Comments POC-GLUCOSE METER 163 mg/dL 70-110 H TESTED AT [place] [address] ([facility]) (test code = [facility] Jessica [facility] 1538) 0[address]26 POCT-GLUCOSE [id number] 09:13:00 Test Item Value Reference Range Interpretation Comments POC-GLUCOSE METER 110 mg/dL 70-110 TESTED AT [place] [address] ([facility]) (test code = [facility] Jessica [facility] 1538) 9[address]12 POCT-GLUCOSE [id number] 06:04:00 Test Item Value Reference Range Interpretation Comments POC-GLUCOSE METER 131 mg/dL 70-110 H TESTED AT [place] [address] ([facility]) (test code = [facility] Jessica [facility] 1538) [address]957 [id number] 04:25:00 Test Item Value Reference Range Interpretation Comments MAGNESIUM (BEAKER) (test code = 2.3 mg/dL 1.6-2.6 627) BASIC METABOLIC [id number] 04:25:00 Test Item Value Reference Range Interpretation [...] PATIEN TS. CBC W/PLT COUNT & AUTO [id number] 04:14:00 Test Item Value Reference Range Interpretation [...] ABSOLUTE COUNT 8.64 K/ L 1.80-8.00 H ([facility]) (test code = 670) LYMPHOCYTES ABSOLUTE COUNT 1.27 K/ L 1.48-4.50 L (AKER) (test code = 414) MONOCYTES ABSOLUTE COUNT (BEAKER) 0.82 K/ L 0.00-1.30 (test code = 415) EOSINOPHILS ABSOLUTE COUNT 0.11 K/ L 0.00-0.50 (AKER) (test code = 416) BASOPHILS ABSOLUTE COUNT (BEAKER) 0.02 K/ L 0.00-0.20 (test code = 417) 0.00POCT-GLUCOSE [id number] 03:20:00 Test Item Value Reference Range Interpretation Comments POC-GLUCOSE METER 170 mg/dL 70-110 H TESTED AT [place] [address] ([facility]) (test code = [place]LL Lopez [place] [address]248) [address] POCT-GLUCOSE [id number] 01:40:00 Test Item Value Reference Range Interpretation Comments POC-GLUCOSE METER 216 mg/dL 70-110 H TESTED AT [place] [address] ([facility]) (test code = [place]CHELL Lopez [place] [address]) [address] POCT-GLUCOSE [id number] 00:08:00 Test Item Value Reference Range Interpretation Comments POC-GLUCOSE METER 227 mg/dL 70-110 H TESTED AT [place] [address] ([facility]) (test code = [place]CHELL Lopez [place] [address]66248) [address] POCT-GLUCOSE [id number] 22:37:00 Test Item Value Reference Range Interpretation Comments POC-GLUCOSE METER 262 mg/dL 70-110 H TESTED AT [place] [address] ([facility]) (test code = [place] [address]66248) [address]663 POCT-GLUCOSE [id number] 20:41:00 Test Item Value Reference Range Interpretation Comments POC-GLUCOSE METER 318 mg/dL 70-110 H Notified Jessica Ward MD/TESTED ([facility]) (test code = AT [place] [address]) [facility] 7703 0 POCT-GLUCOSE [id number] 18:55:00 Test Item Value Reference Range Interpretation Comments POC-GLUCOSE METER 363 mg/dL 70-110 H Notified Jessica Ward MD/TESTED ([facility]) (test code = [place] [address]) [facility] 7703 0 POCT-GLUCOSE [id number] 18:03:00 Test Item Value Reference Range Interpretation Comments POC-GLUCOSE METER 408 mg/dL 70-110 HH Notified R Ed CRISTINA/TESTED ([facility]) (test code = AT [place] [address]46118) [facility] 7703 0 POCT-GLUCOSE [id number] 16:43:00 Test Item Value Reference Range Interpretation Comments POC-GLUCOSE METER 413 mg/dL 70-110 HH Notified R Ed MD/TESTED ([facility]) (test code = AT [place] [address]46118) [facility] 7703 0 POCT-GLUCOSE [id number] 11:39:00 Test Item Value Reference Range Interpretation Comments POC-GLUCOSE METER 332 mg/dL 70-110 H Notified R Ed CRISTINA/TESTED ([facility]) (test code = AT [place] [address]46118) [facility] 7703 0 POCT-GLUCOSE [id number] 09:06:00 Test Item Value Reference Range Interpretation Comments POC-GLUCOSE METER 173 mg/dL 70-110 H TESTED AT [place] [address] ([facility]) (test code = MITCHELL Lopez [facility] 1538) 83951 POCT-GLUCOSE [id number] 07:16:00 Test Item Value Reference Range Interpretation Comments POC-GLUCOSE METER 128 mg/dL 70-110 H TESTED AT [place] [address] ([facility]) (test code = MITCHELL Lopez [facility] 1538) 70872 [id number] 05:44:00 Test Item Value Reference Range Interpretation Comments ACTIVATED CLOTTING TIME 121 sec TEST ED AT [place] [address] ([facility]) (test code = MITCHELL Lopez [facility] 441) 150[address] [id number] 05:44:00 Test Item Value Reference Range Interpretation Comments ACTIVATED CLOTTING TIME 611 sec TEST ED AT [place] [address] ([facility]) (test code = MITCHELL Lopez [facility] 441) 59[address] [id number] 05:44:00 Test Item Value Reference Range Interpretation Comments ACTIVATED CLOTTING TIME 858 sec TEST ED AT [place] [address] ([facility]) (test code = MITCHELL Lopez [facility] 441) 888[address] [id number] 05:44:00 Test Item Value Reference Range Interpretation Comments ACTIVATED CLOTTING TIME 554 sec TEST ED AT [facility] 6720 (BEAKER) (test code = [place] 441) [address] CBC W/PLT COUNT & AUTO [id number] 04:59:00 Test Item Value Reference Range Interpretation [...] K/ L 0.00-0.20 (test code = 417) [id number] 04:59:00 Test Item Value Reference Range Interpretation Comments MAGNESIUM (BEAKER) (test code = 2.0 mg/dL 1.6-2.6 627) BASIC METABOLIC [id number] 04:59:00 Test Item Value Reference Range Interpretation [...] NOT APPLICABLE FOR DIALYSIS PATIEN TS. POCT-GLUCOSE [id number] 02:19:00 Test Item Value Reference Range Interpretation Comments POC-GLUCOSE METER 137 mg/dL 70-110 H TESTED AT [facility] 6720 (BEAKER) (test code = [facility] [place] 1538) [address]702 POCT-GLUCOSE [id number] 23:33:00 Test Item Value Reference Range Interpretation Comments POC-GLUCOSE METER 118 mg/dL 70-110 H TESTED AT [facility] 6720 (BEAKER) (test code = [facility] Jessica [place] 1538) [address] POCT-GLUCOSE [id number] 19:30:00 Test Item Value Reference Range Interpretation Comments POC-GLUCOSE METER 109 mg/dL 70-110 TESTED AT [facility] 6720 (BEAKER) (test code = MITCHELL Lopez [place] 1538) [address] POCT-GLUCOSE [id number] 18:24:00 Test Item Value Reference Range Interpretation Comments POC-GLUCOSE METER 101 mg/dL 70-110 TESTED AT [place] [address] (BEAKER) (test code = MITCHELL Lopez [place] 1538) [address] GLUCOSE-STAT [id number] 16:59:00 Test Item Value Reference Range Interpretation Comments GLUCOSE RANDOM (BEAKER) (test code 108 mg/dL 70-110 = 652) HGB/HCT (H&H) - STAT [id number] 16:59:00 Test Item Value Reference Range Interpretation Comments HEMOGLOBIN (BEAKER) (test code = 9.0 g/dL 13.0-16.8 L 410) HEMATOCRIT (BEAKER) (test code = 26.0 % 40.0-50.0 L 411) BLOOD GAS, [id number] 16:59:00 Test Item Value Reference Range Interpretation [...] (test code = 1819) 36.0 % POCT-GLUCOSE [id number] 15:37:00 Test Item Value Reference Range Interpretation Comments POC-GLUCOSE METER 152 mg/dL 70-110 H TEST[facility] [place] [address] [facility] (test code = MITCHELL Lopez [facility] 1538) [address] [id number] 15:11:00 Test Item Value Reference Range Interpretation Comments MAGNESIUM (BEAKER) (test code = 2.1 mg/dL 1.6-2.6 627) [id number] 15:10:00 Test Item Value Reference Range Interpretation Comments POTASSIUM (BEAKER) (test code = 4.0 meq/L 3.5-5.1 379) POCT-GLUCOSE [id number] 15:03:00 Test Item Value Reference Range Interpretation Comments POC-GLUCOSE METER 180 mg/dL 70-110 H TESTED AT [facility] 67 (BEAKER) (test code = MITCHELL Lopez [facility] 1538) 49035 POCT-GLUCOSE [id number] 13:33:00 Test Item Value Reference Range Interpretation Comments POC-GLUCOSE METER 213 mg/dL 70-110 H TESTED AT [place] [address] (BEAKER) (test code = [facility] Jessica [facility] 1538) 76498 POCT-GLUCOSE [id number] 13:33:00 Test Item Value Reference Range Interpretation Comments POC-GLUCOSE METER 252 mg/dL 70-110 H TESTED AT [place] [address] (BEAKER) (test code = [facility] Jessica [facility] 1538) 01371 BASIC METABOLIC [id number] 13:30:00 Test Item Value Reference Range Interpretation [...] DIALYSIS PATIEN TS. LACTIC ACID, ARTERIAL, WHOLE [id number] 13:01:00 Test Item Value Reference Range Interpretation Comments LACTATE BLOOD 1.4 mmol/L 0.5-2.2 Specimen sligh tly ARTERIAL (2) (BEAKER) hemoly zed (test code = 2874) Effective 10/22/2015: Units/Reference Range ChangeNew: 0.5-2.2 mmol/L Previous: 5-20 mg/dLBLOOD GAS, [id number] 12:31:00 Test Item Value Reference Range Interpretation [...] 1819) 60.0 % HGB/HCT (H&H) - STAT [id number] 12:31:00 Test Item Value Reference Range Interpretation Comments HEMOGLOBIN (BEAKER) (test code = 10.2 g/dL 13.0-16.8 L 410) HEMATOCRIT (BEAKER) (test code = 30.0 % 40.0-50.0 L 411) GLUCOSE-STAT [id number] 12:31:00 Test Item Value Reference Range Interpretation Comments GLUCOSE RANDOM (BEAKER) (test code 239 mg/dL 70-110 H = 652) POTASSIUM-STAT [id number] 12:30:00 Test Item Value Reference Range Interpretation Comments POTASSIUM (BEAKER) (test code = 4.1 meq/L 3.6-5.5 379) CBC W/PLT COUNT & AUTO [id number] 12:24:00 Test Item Value Reference Range Interpretation [...] K/ L 0.00-0.20 (test code = 417) [id number] 12:18:00 Test Item Value Reference Range Interpretation Comments FIBRINOGEN LEVEL (BEAKER) (test 279 mg/dl 225-434 code = 658) [id number] 12:18:00 Test Item Value Reference Range Interpretation Comments PARTIAL THROMBOPLASTIN TIME 33.1 seconds 22.5-36.0 (BEAKER) (test code = 760) PROTHROMBIN [id number] 12:17:00 Test Item Value Reference Range Interpretation Comments PROTIME (BEAKER) (test code = 16.4 seconds 11.7-14.7 H 759) INR (BEAKER) (test code = 370) 1.3 <=5.9 RECOMMENDED COUMADIN/WARFARIN INR THERAPY RANGESSTANDARD DOSE: 2.0 - 3.0 Includes: PROPHYLAXIS forvenous thrombosis, systemic embolization; TREATMENT for venous thrombosis and/or pulmonary embolus.HIGH RISK: Target INR is 2.5-3.5 for patients with mechanical heart valves.OXYGEN SATURATION, [id number] 12:02:00 Test Item Value Reference Range Interpretation Comments O2 SATURATION (MEASURED) (BEAKER) 74.7 % (test code = 1455) CALCIUM, [id number] 11:58:00 Test Item Value Reference Range Interpretation [...] 55.0-65.0 L (test code = 1413) PLATELET [id number] 10:45:00 Test Item Value Reference Range Interpretation Comments PLATELET COUNT (BEAKER) (test 114 K/CU MM 150-430 L code = 756) BLOOD GAS, [id number] 10:42:00 Test Item Value Reference Range Interpretation [...] code = 1819) 40.0 % SODIUM NA-STAT [id number] 10:42:00 Test Item Value Reference Range Interpretation Comments SODIUM (BEAKER) (test code = 381) 132 meq/L 135-148 L GLUCOSE-STAT [id number] 10:42:00 Test Item Value Reference Range Interpretation Comments GLUCOSE RANDOM (BEAKER) (test code 251 mg/dL 70-110 H = 652) HGB/HCT (H&H) - STAT [id number] 10:42:00 Test Item Value Reference Range Interpretation Comments HEMOGLOBIN (BEAKER) (test code = 8.9 g/dL 13.0-16.8 L 410) HEMATOCRIT (BEAKER) (test code = 26.0 % 40.0-50.0 L 411) CALCIUM, [id number] 10:42:00 Test Item Value Reference Range Interpretation Comments CALCIUM IONIZED (BEAKER) (test 0.94 mmol/L 1.12-1.27 L code = 698) PH, BLOOD (BEAKER) (test code = 7.33 1810) POTASSIUM-STAT [id number] 10:41:00 Test Item Value Reference Range Interpretation Comments POTASSIUM (BEAKER) (test code = 4.2 meq/L 3.6-5.5 379) [id number] 10:31:00 Test Item Value Reference Range Interpretation Comments FIBRINOGEN LEVEL (BEAKER) (test 287 mg/dl 225-434 code = 658) [id number] 10:31:00 Test Item Value Reference Range Interpretation Comments PARTIAL THROMBOPLASTIN TIME 36.2 seconds 22.5-36.0 H (BEAKER) (test code = 760) PROTHROMBIN [id number] 10:30:00 Test Item Value Reference Range Interpretation Comments PROTIME (BEAKER) (test code = 18.5 seconds 11.7-14.7 H 759) INR (BEAKER) (test code = 370) 1.6 <=5.9 RECOMMENDED COUMADIN/WARFARIN INR THERAPY RANGESSTANDARD DOSE: 2.0 - 3.0 Includes: PROPHYLAXIS forvenous thrombosis, systemic embolization; TREATMENT for venous thrombosis and/or pulmonary embolus.HIGH RISK: Target INR is 2.5-3.5 for patients with mechanical heart valves.BLOOD GAS, [id number] 10:21:00 Test Item Value Reference Range Interpretation [...] code = 1819) 70.0 % SODIUM NA-STAT [id number] 10:21:00 Test Item Value Reference Range Interpretation Comments SODIUM (BEAKER) (test code = 381) 130 meq/L 135-148 L GLUCOSE-STAT [id number] 10:21:00 Test Item Value Reference Range Interpretation Comments GLUCOSE RANDOM (BEAKER) (test code 261 mg/dL 70-110 H = 652) HGB/HCT (H&H) - STAT [id number] 10:21:00 Test Item Value Reference Range Interpretation Comments HEMOGLOBIN (BEAKER) (test code = 9.2 g/dL 13.0-16.8 L 410) HEMATOCRIT (BEAKER) (test code = 27.0 % 40.0-50.0 L 411) POTASSIUM-STAT [id number] 10:20:00 Test Item Value Reference Range Interpretation Comments POTASSIUM (BEAKER) (test code = 4.7 meq/L 3.6-5.5 379) CALCIUM, [id number] 10:18:00 Test Item Value Reference Range Interpretation Comments CALCIUM IONIZED (BEAKER) (test 1.12 mmol/L 1.12-1.27 code = 698) PH, BLOOD (BEAKER) (test code = 7.27 1810) POTASSIUM-STAT [id number] 09:54:00 Test Item Value Reference Range Interpretation Comments POTASSIUM (BEAKER) (test code = 4.9 meq/L 3.6-5.5 379) BLOOD GAS, [id number] 09:54:00 Test Item Value Reference Range Interpretation [...] code = 1819) 70.0 % SODIUM NA-STAT [id number] 09:54:00 Test Item Value Reference Range Interpretation Comments SODIUM (BEAKER) (test code = 381) 130 meq/L 135-148 L GLUCOSE-STAT [id number] 09:54:00 Test Item Value Reference Range Interpretation Comments GLUCOSE RANDOM (BEAKER) (test code 189 mg/dL 70-110 H = 652) HGB/HCT (H&H) - STAT [id number] 09:54:00 Test Item Value Reference Range Interpretation Comments HEMOGLOBIN (BEAKER) (test code = 8.7 g/dL 13.0-16.8 L 410) HEMATOCRIT (BEAKER) (test code = 26.0 % 40.0-50.0 L 411) BLOOD GAS, [id number] 09:34:00 Test Item Value Reference Range Interpretation [...] code = 1819) 70.0 % SODIUM NA-STAT [id number] 09:34:00 Test Item Value Reference Range Interpretation Comments SODIUM (BEAKER) (test code = 381) 127 meq/L 135-148 L POTASSIUM-STAT [id number] 09:34:00 Test Item Value Reference Range Interpretation Comments POTASSIUM (BEAKER) (test code = 5.5 meq/L 3.6-5.5 379) GLUCOSE-STAT [id number] 09:34:00 Test Item Value Reference Range Interpretation Comments GLUCOSE RANDOM (BEAKER) (test code 177 mg/dL 70-110 H = 652) HGB/HCT (H&H) - STAT [id number] 09:34:00 Test Item Value Reference Range Interpretation Comments HEMOGLOBIN (BEAKER) (test code = 7.9 g/dL 13.0-16.8 L 410) HEMATOCRIT (BEAKER) (test code = 23.0 % 40.0-50.0 L 411) BLOOD GAS, [id number] 09:33:00 Test Item Value Reference Range Interpretation [...] code = 1819) 70.0 % SODIUM NA-STAT [id number] 08:42:00 Test Item Value Reference Range Interpretation Comments SODIUM (BEAKER) (test code = 381) 135 meq/L 135-148 BLOOD GAS, [id number] 08:42:00 Test Item Value Reference Range Interpretation [...] (test code = 1819) 100.0 % POTASSIUM-STAT [id number] 08:42:00 Test Item Value Reference Range Interpretation Comments POTASSIUM (BEAKER) (test code = 3.3 meq/L 3.6-5.5 L 379) GLUCOSE-STAT [id number] 08:42:00 Test Item Value Reference Range Interpretation Comments GLUCOSE RANDOM (BEAKER) (test code 214 mg/dL 70-110 H = 652) HGB/HCT (H&H) - STAT [id number] 08:42:00 Test Item Value Reference Range Interpretation Comments HEMOGLOBIN (BEAKER) (test code = 13.2 g/dL 13.0-16.8 410) HEMATOCRIT (BEAKER) (test code = 39.0 % 40.0-50.0 L 411) CALCIUM, [id number] 08:42:00 Test Item Value Reference Range Interpretation Comments CALCIUM IONIZED (BEAKER) (test 1.08 mmol/L 1.12-1.27 L code = 698) PH, BLOOD (BEAKER) (test code = 7.46 1810) POCT-GLUCOSE [id number] 06:55:00 Test Item Value Reference Range Interpretation Comments POC-GLUCOSE METER 229 mg/dL 70-110 H TESTED AT [facility] 6720 (BEAKER) (test code = [place] 1538) [address] HEMOGLOBIN [id number] 11:00:00 Test Item Value Reference Range Interpretation Comments HEMOGLOBIN A1C (BEAKER) (test code = 15.1 % 4.3-6.1 H 368) BASIC METABOLIC [id number] 10:01:00 Test Item Value Reference Range Interpretation [...] S NOT APPLICABLE FOR DIALYSIS PATIEN TS. [id number] 09:46:00 Test Item Value Reference Range Interpretation [...]
[2020-11-22 18:17] LABS: Absolute Lymphocytes (CBC) 1.3 K/uL (0.7-4.9); Basophils % 0.9 % (0-1.3); Hematocrit 38.1 % (39.6-49.0); Lymphocytes % 13.6 % (15.3-44.8); MPV 9.6 fL (7.6-11.3); RBC Red Blood Cell Count 4.14 M/uL (4.33-5.43)
[2020-11-22 18:18] LABS: Protime INR 0.94
[2020-11-22 18:42] LABS: ALT/SGPT 21 U/L (12-78); AST/SGOT 12 U/L (15-37); Albumin 3.5 g/dL (3.4-5.0); Alkaline Phosphatase 73 U/L (45-117); BUN Blood Urea Nitrogen 21 mg/dL (7-18); Bicarbonate 31 mmol/L (21-32); Bilirubin Direct < 0.1 mg/dL (0-0.2); Bilirubin Total 0.2 mg/dL (0.2-1.0); Glucose Level 176 mg/dL (74-106); Magnesium 2.3 mg/dL (1.8-2.4); NT PRO-BNP 712 pg/mL (<125); Potassium 3.8 mmol/L (3.5-5.1); Sodium Level 141 mmol/L (136-145); Troponin (Emerg Dept Use Only) < 0.02 ng/mL (0.0-0.045)
--- NOTE | 2020-11-22 18:43 | RAD REPORT ---
EXAM DESCRIPTION: CT - Head Brain Wo Cont - 11/22/2020 6:23 pm CLINICAL HISTORY: presyncope Headache, drowsiness COMPARISON: Head Brain Wo Cont dated 09/20/2017; Head Brain Wo Cont dated 07/08/2016 TECHNIQUE: All CT scans are performed using dose optimization technique as appropriate and may inclu de automated exposure control or mA/KV adjustment according to patient size. FINDINGS: No intracranial hemorrhage, hydrocephalus or extra-axial fluid collection.No areas of brai n edema or evidence of midline shift. The paranasal sinuses and mastoids are clear. The calvarium is intact. IMPRESSION: No acute intracranial abnormality.
--- NOTE | 2020-11-22 18:53 | RAD REPORT ---
EXAM DESCRIPTION: RAD - Chest Single View - 11/22/2020 6:42 pm CLINICAL HISTORY: CHEST PAIN Chest pain. COMPARISON: Chest Single View dated 01/02/2020; Chest Single View dated 08/19/2019; Chest Pa And Lat (2 Views) dated 07/16/2019; Chest Pa And Lat (2 Views) dated 04/10/2019 FINDINGS: Portable technique limits examination quality. Chronic pleural and parenchymal changes are present on the left, unchanged. The right lung is grossly clear. The heart is upper limit normal in size with a multi lead pacer device present. Sternotomy wi res present.
--- NOTE | 2020-11-22 20:24 | ER ---
Nurse's Notes [facility] Name: Los Griggs Jr Age: 55 yrs Sex: Male : 1965 Arrival Date: 11/22/2020 Time: 17:46 Bed 13 Private MD: Diagnosis: Syncope and collapse Presentation: 11/22 17:49 Chief complaint: EMS states: Near syncope in [facility]. Pt states feels weak, denies NVD, vg1 denies chest pain. Coronavirus screen: Client denies travel out of the [place] in the last 14 days. Ebola Screen: Patient negative for fever greater than or equal to 101.5 degrees Fahrenheit, and additional compatible Ebola Virus Disease symptoms. Initial Sepsis Screen: Does the patient meet any 2 criteria? No. Patient's initial sepsis screen is negative. Does the patient have a suspected source of infection? No. Patient's initial sepsis screen is negative. Risk Assessment: Do you want to hurt yourself or someone else? Patient reports no desire to harm self or others. Onset of symptoms was November 22, 2020. 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 - Social history:: Smoking status: Patient reports the use of cigarette tobacco products, denies chronic smoking, but will smoke occasionally. Screenin:58 Abuse screen: Denies threats or abuse. Nutritional screening: No deficits noted. vg1 Tuberculosis screening: No symptoms or risk factors identified. Fall Risk No fall in past 12 months (0 pts). No secondary diagnosis (0 pts). IV access (20 points). Ambulatory Aid- None/Bed Rest/Nurse Assist (0 pts). Gait- Weak (10 pts.). Mental Status- Oriented to own ability (0 pts). Total White Fall Scale indicates Low Risk Score (25-44 pts). Fall prevention measures have been instituted. Side Rails Up X 2 Placed close to Nursing Station. Assessment: 17:40 General: Appears in no apparent distress. comfortable, Behavior is calm, cooperative. vg1 Pain: Denies pain. Neuro: Level of Consciousness is awake, alert, obeys commands, Oriented to person, place, time, situation, Reports weakness. Cardiovascular: Patient's skin is warm and dry. Respiratory: Airway is patent Respiratory effort is even, unlabored. GI: Patient currently denies diarrhea, nausea, vomiting. : No signs and/or symptoms were reported regarding the genitourinary system. EENT: No signs and/or symptoms were reported regarding the EENT system. Derm: Skin is intact, is healthy with good turgor. Musculoskeletal: Circulation, motion, and sensation intact. 18:54 Reassessment: Patient appears in no apparent distress at this time. Patient and/or vg1 family updated on plan of care and expected duration. Pain level reassessed. Patient is alert, oriented x 3, equal unlabored respirations, skin warm/dry/pink. Patient denies pain at this time. 20:05 Reassessment: Patient appears in no apparent distress at this time. Patient and/or vg1 family updated on plan of care and expected duration. Pain level reassessed. Patient is alert, oriented x 3, equal unlabored respirations, skin warm/dry/pink. Patient denies pain at this time. Patient states feeling better. 20:30 Reassessment: Patient is alert, oriented x 3, equal unlabored respirations, skin bb warm/dry/pink. pt states he has doctor's appointments on Tuesday and will follow-up at that time. Pt verbalized understanding of and agrees to plan of care discharge instructions given. Vital Signs: 17:49 BP 147 / 73; Pulse 76; Resp 18; Temp 97.5; Pulse Ox 100% ; Weight 102.06 kg; Height 5 vg1 ft. 10 in. (177.80 cm); Pain 0/10; 18:52 BP 118 / 67; Pulse 88; Resp 16; Pulse Ox 97% ; vg1 20:00 BP 129 / 74; Pulse 83; Resp 16; Pulse Ox 98% on R/A; vg1 20:31 BP 150 / 67; Pulse 81; Resp 19 S; Temp 98(O); Pulse Ox 96% on R/A; bb 17:49 Body Mass Index 32.28 (102.06 kg, 177.80 cm) vg1 ED Course: 17:46 Patient arrived in ED. 17:49 Pinky Barrera, RN is Primary Nurse. vg1 17:52 Triage completed. vg1 17:53 Sergo Mcclellan PA is PHCP. [facility] 17:53 Bienvenido Rubio MD is Attending Physician. [facility] 17:58 Patient has correct armband on for positive identification. Placed in gown. Bed in low vg1 position. Call light in reach. Side rails up X2. 17:58 Arm band placed on. vg1 18:10 Inserted saline lock: 20 gauge in left hand, using aseptic technique. aa5 18:23 CT Head Brain wo Cont In Process Unspecified. EDMS 18:42 XRAY Chest (1 view) In Process Unspecified. EDMS 20:31 No provider procedures requiring assistance completed. IV discontinued, intact, bb bleeding controlled, No redness/swelling at site. Pressure dressing applied. Administered Medications: No medications were administered Outcome: 20:23 Discharge ordered by MD. [facility] 20:31 Discharged to home ambulatory, with family. bb 20:31 Condition: stable 20:31 Discharge instructions given to patient, Instructed on discharge instructions, follow up and referral plans. Demonstrated understanding of instructions, follow-up care. 20:32 Patient left the ED. bb Signatures: Dispatcher [employer] EDMS Sergo Mcclellan PA PA jmm Ballard, Brenda RN MAHAMED bb Ghada Jennings, RN RN aa5 Mary Rodriguez RN RN ss Garcia, Victoria, RN RN vg1
--- NOTE | 2020-11-22 20:24 | EDPHYS ---
Physician Documentation [facility] Name: Los Griggs Jr Age: 55 yrs Sex: Male : 1965 Arrival Date: 11/22/2020 Time: 17:46 Bed 13 Private MD: ED Physician Bienvenido Rubio HPI: 11/22 17:48 This 55 yrs old Male presents to ER via EMS with complaints of Dizziness. jmm 17:48 The patient has experienced syncope. Onset: The symptoms/episode began/occurred jm acutely, just prior to arrival. Duration: This was a single episode. Associated injury: The patient did not suffer any apparent associated injury. This is a 55 year old male with a history of CAD, CHF, DM, HTN that presents to the ED with complaints of near syncope and low blood pressure which occurred at a grocery store. Denies complete LOC. Patient states having right sided chest pain for about 30 minutes. . Historical: - Allergies: 17:54 No Known Allergies; vg1 - Home Meds: 17:54 atorvastatin 40 mg Oral tab 1 tab once daily [Active]; aspirin 81 mg Oral TbEC 1 tab vg1 once daily [Active]; Rifampin Oral [Active]; ethambutol 400 mg Oral tab three times daily [Active]; Furosemide Oral [Active]; azithromycin 500 mg Oral tab 1 tab twice daily [Active]; prasugrel oral oral [Active]; Amitriptyline Oral [Active]; Entresto oral oral [Active]; pantoprazole oral oral [Active]; - PMHx: 17:54 Bulging disc to back ; negative mri; CHF; COPD; Diabetes - NIDDM; Hypertension; vg1 mycoplasm avium-chronic lung disease; Myocardial infarction; Pneumonia; - Immunization history:: Adult Immunizations up to date, Client reports receiving the 2nd dose of the Covid vaccine. - Social history:: Smoking status: Patient reports the use of cigarette tobacco products, denies chronic smoking, but will smoke occasionally. ROS: 17:48 Constitutional: Negative for fever, chills, and weight loss. jmm 17:48 Respiratory: Negative for shortness of breath, cough, wheezing, and pleuritic chest pain. 17:48 Cardiovascular: Positive for chest pain. 17:48 Cardiovascular: Positive for chest pain. 17:48 Neuro: Positive for near syncope. 17:48 All other systems are negative. Exam: 17:48 Constitutional: This is a well developed, well nourished patient who is awake, alert, jmm and in no acute distress. Head/Face: atraumatic. Eyes: EOMI, no conjunctival erythema appreciated ENT: Moist Mucus Membranes Neck: Trachea midline, Supple Chest/axilla: Normal chest wall appearance and motion. Cardiovascular: Regular rate and rhythm. No edema appreciated Respiratory: Normal respirations, no respiratory distress appreciated Abdomen/GI: Non distended, soft Back: Normal ROM Skin: General appearance color normal MS/ Extremity: Moves all extremities, no obvious deformities appreciated, no edema noted to the lower extremities Neuro: Awake and alert, normal gait Psych: Behavior is normal, Mood is normal, Patient is cooperative and pleasant Vital Signs: 17:49 BP 147 / 73; Pulse 76; Resp 18; Temp 97.5; Pulse Ox 100% ; Weight 102.06 kg; Height 5 vg1 ft. 10 in. (177.80 cm); Pain 0/10; 18:52 BP 118 / 67; Pulse 88; Resp 16; Pulse Ox 97% ; vg1 20:00 BP 129 / 74; Pulse 83; Resp 16; Pulse Ox 98% on R/A; vg1 20:31 BP 150 / 67; Pulse 81; Resp 19 S; Temp 98(O); Pulse Ox 96% on R/A; bb 17:49 Body Mass Index 32.28 (102.06 kg, 177.80 cm) vg1 MDM: 17:58 Patient medically screened. [facility] 20:22 Data reviewed: vital signs, nurses notes. Counseling: I had a detailed discussion with jayne the patient and/or guardian regarding: the historical points, exam findings, and any diagnostic results supporting the discharge/admit diagnosis, lab results, radiology results, the need for outpatient follow up, the need for further work-up and treatment in the hospital, to return to the emergency department if symptoms worsen or persist or if there are any questions or concerns that arise at home. Refusal of service: The patient/guardian displays adequate decision making capability and despite a detailed discussion of alternatives, benefits, risks, and consequences refuses: Admission to the hospital for further work-up and treatment. 11/22 17:48 Order name: Basic Metabolic Panel; Complete Time: 18:44 ss 11/22 17:48 Order name: CBC with Diff; Complete Time: 18:38 ss 11/22 17:48 Order name: LFT's; Complete Time: 18:44 ss 11/22 17:48 Order name: Magnesium; Complete Time: 18:44 ss 11/22 17:48 Order name: NT PRO-BNP; Complete Time: 18:44 ss 05 17:48 Order name: PT-INR; Complete Time: 18:38 ss 11/22 17:48 Order name: Troponin (emerg Dept Use Only); Complete Time: 18:44 ss 11/22 17:48 Order name: XRAY Chest (1 view); Complete Time: 18:57 ss 11/22 17:48 Order name: EKG; Complete Time: 17:48 ss 11/22 17:48 Order name: Cardiac monitoring; Complete Time: 17:59 ss 11/22 17:48 Order name: EKG - Nurse/Tech; Complete Time: 17:59 ss 11/22 17:48 Order name: IV Saline Lock; Complete Time: 18:11 11/22 17:58 Order name: Glucose, Ancillary Testing; Complete Time: 17:58 [facility] 11/22 17:58 Order name: CT Head Brain wo Cont; Complete Time: 18:44 [facility] 11/22 17:48 Order name: Labs collected and sent; Complete Time: 17:59 ss 11/22 17:48 Order name: O2 Per Protocol; Complete Time: 17:59 ss 11/22 17:48 Order name: O2 Sat Monitoring; Complete Time: 17:59 ss Administered Medications: No medications were administered Disposition: 11/22/20 20:23 Discharged to Home. Impression: Syncope and collapse. - Condition is Stable. - Discharge Instructions: Syncope. - Medication Reconciliation Form, Thank You Letter, Antibiotic Education, Prescription Opioid Use form. - Follow up: Private Physician; When: 1 - 2 days; Reason: Recheck today's complaints, Continuance of care, Re-evaluation by your physician. Addendum: 11/25/2020 07:43 Co-signature as Attending Physician, Bienvenido Rubio MD I agree with the assessment and c golden plan of care. Signatures: Dispatcher [employer] Bienvenido Rodriguez MD MD cha Mickail, Joel, PA PA Vanessa Sage, RN RN bb Mary Rodriguez RN RN ss Pinky Barrera RN RN vg1 Corrections: (The following items were deleted from the chart) 11/22 20:32 20:23 11/22/2020 20:23 Discharged to Home. Impression: Syncope and collapse. Condition bb is Stable. Forms are Medication Reconciliation Form, Thank You Letter, Antibiotic Education, Prescription Opioid Use. Follow up: Private Physician; When: 1 - 2 days; Reason: Recheck today's complaints, Continuance of care, Re-evaluation by your physician. jayne
[2020-11-22 20:45] VITALS: BP 150/67; TEMP 98; O2SAT 96
== END 2020-11-22 20:32 | disposition home or self-care (01) ==
LOC: ER 17:40
DX: R55 Syncope and collapse (principal); R07.9 Chest pain, unspecified; I10 Essential (primary) hypertension; I25.2 Old myocardial infarction; E11.9 Type 2 diabetes mellitus without complications; F17.210 Nicotine dependence, cigarettes, uncomplicated; Z79.82 Long term (current) use of aspirin
CPT/HCPCS: 36415; 70450; 71045; 80048; 80076; 82947; 83735; 83880; 84484; 85025; 85610; 93005; 99284

== ENCOUNTER 2021-12-30 10:14 | Emergency (ER) | payer OTHER ==
[2021-12-30] MEDS ORDERED: MUPIROCIN 2% OINT 22GM TUBE TOP ONE (11:39)
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
[2021-12-30] MEDS ORDERED: SMZ./TMP. 800/160 MG TABLET ONE (11:55)
[2021-12-30 12:05] VITALS: BP 161/59; TEMP 98.1; O2SAT 100
== END 2021-12-30 11:56 | disposition home or self-care (01) ==
LOC: ER 10:14
DX: T25.232A Burn of second degree of left toe(s) (nail), initial encounter (principal); T25.231A Burn of second degree of right toe(s) (nail), initial encounter; T31.0 Burns involving less than 10% of body surface; I10 Essential (primary) hypertension; E11.9 Type 2 diabetes mellitus without complications; I25.2 Old myocardial infarction; I50.9 Heart failure, unspecified; Z79.82 Long term (current) use of aspirin; Z79.4 Long term (current) use of insulin

== ENCOUNTER 2022-11-05 03:34 | Emergency (ER) | payer OTHER ==
--- OUTSIDE RECORDS SUMMARY | 2022-11-05 03:51 | XMS REPORT | Continuity of Care Document ---
:1965 Author Organization [facility] t Address [address] [place] [address] Care Team Providers Name Role Phone No, Pcp [facility] Primary Care Physician Unavailable BASSEM ABRAHAM Attending Clinician Unavailable DENICE JEAN Attending Clinician Unavailable Tiff Estrada Attending Clinician Unavailable Bubba Taylor Attending Clinician Unavailable Rudy Vargas Attending Clinician Unavailable BASSEM ABRAHAM Attending Clinician Unavailable LENNY MENDOZA Attending Clinician Unavailable Henry Funes NP Attending Clinician GRIFFIN MAST Attending Clinician Unavailable Lenny Mendoza MD Attending Clinician LENNY MENDOZA Attending Clinician Unavailable Martha CRISTINA, Samuel Jiménez Attending Clinician [phone] Bassem Abraham MD Attending Clinician Bassem Abraham MD Attending Clinician Lars Pond Attending Clinician [phone] Mitali Beck MD Attending Clinician Griffin Mast DPM Attending Clinician LENNY PANCHAL Attending Clinician Unavailable Lenny Panchal MD Attending Clinician Durga IRBY, Charo Santana Attending Clinician Unavailable KHOA CLINE Attending Clinician Unavailable Victor Hugo Estes MD Attending Clinician VICTOR HUGO ESTES Attending Clinician Unavailable Yefri Dorsey MD Attending Clinician Cecil Dwyer Attending Clinician Zhao Harmon RN Attending Clinician Unavailable DENICE JEAN Attending Clinician Unavailable Radiology Attending Clinician Unavailable RADIOLOGY Attending Clinician Unavailable Denice Jean MD Attending Clinician BRAULIO HURLEY Attending Clinician Unavailable BASSEM ABRAHAM Admitting Clinician Unavailable DENICE JEAN Admitting Clinician Unavailable Sybil Moody 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 Admitting Clinician Unavailable KNOW, DOES_NOT Admitting Clinician Unavailable LENNY MENDOZA Admitting Clinician Unavailable LENNY PANCHAL Admitting Clinician Unavailable BRAULIO HURLEY Admitting Clinician Unavailable Payers Payer Name Policy Type Policy Number Effective Date Expiration Date Max wiggins MEDICARE A B [id number] 2016 00:00:00 MEDICAID [facility] [id number] 2020 00:00:00 MEDICAID [place] [id number] 2018 00:00:00 MEDICARE PART A \\T\\ [id number] B - MEDICARE [facility]-MEDICAID - [id number] MEDICAID MEDICAID - [facility] [id number] [facility] [id number] 2020 00:00:00 Problems Condition Condition Condition Status Onset Resolution Last Treating Co mments Source Name Details Category Date Date Treatment Clinician Date Pseudophak Pseudophak Disease Active Overview : [facility] ia, left ia, left 06-24 [facility] eye eye 00:00: g of this of 00 note Medicin might be e different from the original. 3-piece IOL in the sulcus History of History of Disease Active Overview : [facility] glaucoma glaucoma 1-05 [facility] tube shunt tube shunt 00:00: g of this of procedure, procedure, 00 note Me dicin left eye left eye might be e different from the original. Via sulcus Secondary Secondary Disease Active [facility] angle-clos angle-clos 1-04 Annita kes ure ure 00:00: Medical glaucoma, glaucoma, 00 Cent er left, left, indetermin indetermin ate stage ate stage Mature Mature Disease Active [facility] cataract cataract 1-04 [facility] Peripheral Peripheral Disease Recurre 2021-[address] [facility] vascular vascular nce 1-14 [facility] disease disease 00:00: Medical 00 Center PAD PAD Disease Recurre [facility] (periphera (periphera nce 7-20 Annita kes l artery l artery 00:00: Medica l disease) disease) 00 Center Intermitte Intermitte Disease Recurre [facility] nt nt nce 1-28 [facility] claudicati claudicati 00:00: Me dical on of both on of both 00 Ce nter lower lower extremitie extremitie s due to s due to atheroscle atheroscle rosis rosis Peripheral Peripheral Disease Recurre [facility] arterial arterial nce 1-27 [facility] disease disease 00:00: Medical 00 [place] Coronary Coronary Disease Active [facility] atheroscle atheroscle 5-25 Annita kes rosis of rosis of 00:00: [place] 00 [place] coronary coronary artery artery Postsurgic Postsurgic Disease Active [facility] al al 5-25 [facility] aortocoron aortocoron 00:00: Me dical nadia bypass nadia bypass 00 Ce nter status status Stented Stented Disease Active [facility] coronary coronary 5-25 [facility] artery artery 00:00: Medical 00 Center Subclavian Subclavian Disease Recurre [facility] artery artery nce 4-07 [facility] stenosis, stenosis, 00:00: Medi little left left 00 Center Bilateral Bilateral Disease Recurre [facility] claudicati claudicati nce 4-07 Annita kes on of on of 00:00: Medical lower limb lower limb 00 Ce nter Diabetes Diabetes Disease Recurre [facility] mellitus mellitus nce 4-06 [facility] 00:[facility] Center Chronic Chronic Disease Recurre [facility] combined combined nce 4-06 [facility] systolic systolic 00:00: Medica l and and 00 Center diastolic diastolic CHF, NYHA CHF, NYHA class 2 class 2 and and ACC/AHA ACC/AHA stage C stage C Mycobacter Mycobacter Disease Recurre [facility] ium avium ium avium nce 4-04 [facility] complex complex 00:00: Medical 00 Center S/P CABG x S/P CABG x Disease Active [facility] 3-CABG 3-CABG 4-04 [facility] 11/01/16 by 11/01/16 by 00:00: Ga oriana Hurley 00 Center :SVG to :SVG to RCA-Crux; RCA-Crux; OM-1; OM-1; CEBALLOS-LAD CEBALLOS-LAD Subclavian Subclavian Disease Active B gina artery artery 3-15 [place] stenosis, stenosis, 00:00: of left stent left stent 00 Me dicin 10/14/20 10/14/20 e PAD PAD Disease Active [facility] (periphera (periphera 1-14 Co llege l artery l artery 00:00: of disease) disease) 00 Medici n (HCCode) (HCCode) e Claudicati Claudicati Disease Active [facility] on on 07-03 College (HCCode) (HCCode) 00:00: of 00 Medicin e CAITY stent CAITY stent Disease Active [facility] 12[facility]06 [facility] 00:[facility]: Medical 00 Center Bilateral Bilateral Disease Recurre [facility] carotid carotid nce 12-03 [facility] artery artery 00:00: Medical disease disease 00 Center RICAS on RICAS on 12/06/17 12/06/17 Stenosis Stenosis Disease Active [facility] right of right 6-11 Colleg e internal internal 00:00: of carotid carotid 00 Medicin artery-mj artery-mj e nt on nt on 12/06/17 12/06/17 History of History of Disease Active [facility] left-sided left-sided 6-11 Co llege carotid carotid 00:00: of endarterec endarterec 00 Ga dicin yolande yolande e Tobacco Tobacco Disease Active [facility] abuse abuse 11-28 College 00:00: of 00 Medicin e S/P CABG x S/P CABG x Disease Active Juan C fuentes 11-28 College 00:00: of 00 Medicin e Mycobacter Mycobacter Disease Active Navin Irizarry [facility] ium avium ium avium 11-28 Assess[facility] ollege complex-on complex-on 00:00: t & Plan: of Ethambutol Ethambutol 00 Formattin Medicin g of this e note might be different from the original. On three drug oral therapy - rifampin, azithromy gabriel, ethambuto l. May be a candidate to retry arikayce vs IV amikacin, vs clofazmin e etc. Will await culture results and sensitivi ty pattern. Will discuss with ID. Chronic Chronic Disease Active [facility] systolic systolic 11-28 Colleg e CHF CHF 00:00: of (congestiv (congestiv 00 Me dicin e heart e heart e failure), failure), NYHA class NYHA class 2 2 DM DM Disease Active [facility] (diabetes (diabetes 11-28 [facility] ege mellitus) mellitus) 00:00: of type II type II 00 Medicin uncontroll uncontroll e ed with ed with eye eye manifestat manifestat ion ion COPD COPD Disease Active [facility] (chronic (chronic 11-28 [facility] obstructiv obstructiv 00:00: t & Plan: of e e 00 Formattin Medicin pulmonary pulmonary g of this e disease) disease) note might be different from the original. Continue Trelegy Coronary Coronary Disease [facility] 5[facility]10 [facility] disease disease 00:00: Medical involving involving 00 Cent [place] coronary coronary artery of artery of [place] heart heart without without angina angina pectoris pectoris S/P S/P Disease Active [facility] coronary coronary 5-10 [facility] artery artery 00:00: Medical stent stent 00 Center placement placement Essential Essential Disease Active [facility] hypertensi hypertensi 5-10 Annita kes on on 00:00: Medical 00 Center COPD COPD Disease Recurre [facility] (chronic (chronic nce 5-10 [facility] obstructiv obstructiv 00:00: Me dical e e 00 Center pulmonary pulmonary disease) disease) Current Current Disease Active [facility] every day every day 5-10 [facility] smoker smoker 00:00: Medical Center Chest pain Chest pain Disease Active U nivers at rest at rest 12-19 ity of 00:00: [address] Allergies, Adverse Reactions, Alerts Allergy Allergy Status Severity Reaction(s) Onset Inactive Treating Comm ents Source Name Type Date Date Clinician No Known DA Active [facility] Allergie 03-14 [place] [facility] 00:00: d 00 [facility] Center No Known DA Active [facility] Allergie 03-14 [place] [facility] 00:00: d 00 [facility] NO KNOWN Allergy Active [facility] Drug Active Univers ALLERGIE Class ity of S [facility] Social History Social Habit Start Date Stop Date Quantity Comments Source [facility] to [facility] Alcohol intake 2022-06-24 2022-06-[address] [facility] Kathy es 00:00:00 00:00:00 non-drinker of Medical Ce nter alcohol (finding) Tobacco use and 2022-06-10 2022-06-[address] [facility] exposure 00:00:00 00:00:00 tobacco user Medical Cent er Tobacco Comment 2017-12-06 2017-12-[address] [facility] [address] Annita kes 00:00:00 00:00:00 [facility] Cigarette 2017-11-28 2017-11-28 [facility] College of pack-years 00:00:00 00:00:00 Medicine History of tobacco 2016-06-[address] [facility] use 00:00:00 [facility] Cigarettes smoked 2013-12-19 2013-12-19 Univers ity of current (pack per 00:00:00 00:00:00 ) - Reported Branch Sex Assigned At [address] [facility] Annita kes 00:00:00 00:00:00 [facility] Smoking Status Start Date Stop Date Source Ex-smoker 2022-06-10 00:00:00 2022-06-10 00:00:00 [facility] Current every day 2013-12-19 00:00:00 [facility] smoker Medical Branch Medications Ordered Filled Start Stop Current Ordering Indication Dosage Frequency Signature Comments Components Source Medication Medication Date Date Medication? Clinician (SIG) Name Name ETHAMBUTOL Yes 300mg Take 300 [facility] HCL OR 3-09 mg by College 11:51: mouth two of 19 times Medicin daily. e Indication s: Is NOT TAKING YET ,,,will start 11/29/17 RifAMPin 0 Yes 400mg Take 400 [facility] (RIFADIN 3-09 mg by [place] OR) 11:51: mouth two of 19 times Medicin daily. e albuterol Yes 180ug 2 Puffs by uJan C fuentes 108 (90 3-09 Inhalation Colleg e base) 11:51: route as of mcg/act 19 needed. Medicin inhaler e gabapentin Yes 600mg Take 1 [facility] (NEURONTIN) 3-09 Tablet by Col [facility] 600 MG 00:00: mouth 3 of tablet 00 times Medicin daily. e ethambutol Yes mycobacteri 1200mg QD Take 1,[address] (MYAMBUTOL) 1-05 um avium mg by Kathy es 400 MG 15:00: complex mouth Medical tablet 16 infection daily . Cente r albuterol 0 Yes 2{puff} Inhale [address] HFA 1-05 puffs by [facility] (VENTOLIN 15:00: mouth via Med ical HFA) 90 16 inhaler Center mcg/actuati every 6 on inhaler (six) hours as needed for Wheezing. rifAMPin Yes 600mg QD Take [address] (RIFADIN) 1-05 mg by [facility] 300 MG 15:00: mouth Medical capsule 16 daily. Center azithromyci 0 Yes 500mg QD Take [address] n 1-05 mg by [facility] (ZITHROMAX) 15:00: mouth Medic al 500 MG 16 daily. Center tablet insulin 0 Yes 25U Inject 25 [facility] regular 1-05 Units [facility] (HUMULIN 15:00: subcutaneo Med ical R,NOVOLIN 16 usly 3 Center R) 100 (three) unit/mL times injection daily before meals Sliding scale . prasugrel 0 Yes 10mg Take [address] (EFFIENT) 1-05 by mouth [facility] 10 mg Tab 15:00: every Medical tablet 16 other day Center . omeprazole 0 Yes 40mg QD Take [address] (PriLOSEC) 1-05 by mouth [facility] 40 MG 15:00: daily. Medical capsule 16 Center sacubitriL- 0 Yes 1{tbl} Q.5D Take [address] valsartan 1-05 tablet by [facility] (ENTRESTO) 15:00: mouth 2 Medi little 24-26 mg 16 (two) [place] Tab times daily. fluticasone 0 Yes QD Inhale by [facility] -umeclidin- 1-05 mouth via Kathy es vilanter 15:00: inhaler Medica l (Trelegy 16 daily. [place] Ellipta) 100-62.5-25 mcg DsDv brimonidine Yes 1[drp] Q.5D [address] [address] -timoloL 1-05 (two) [facility] (COMBIGAN) 15:00: times Medica l 0.2-0.5 % 16 daily LEFT Cent er ophthalmic EYE. solution insulin Yes 30U QD Inject 30 [facility] degludec 1-05 Units [facility] (Tresiba 15:00: subcutaneo Med ical FlexTouch 16 [facility] U-200) 200 daily. unit/mL (3 mL) InPn ethambutol Yes mycobacteri 1200mg QD Take 1,[address] (MYAMBUTOL) 1-05 um avium mg by Kathy es 400 MG 15:00: complex mouth Medical tablet 16 infection daily . Cente r albuterol Yes 2{puff} Inhale [address] HFA 1-05 puffs by [facility] (VENTOLIN 15:00: mouth via Med ical HFA) 90 16 inhaler Center mcg/actuati every 6 on inhaler (six) hours as needed for Wheezing. rifAMPin 0 Yes 600mg QD Take [address] (RIFADIN) 1-05 mg by [facility] 300 MG 15:00: mouth Medical capsule 16 daily. [place] azithromyci 0 Yes 500mg QD Take [address] n 1-05 mg by [facility] (ZITHROMAX) 15:00: mouth Medic al 500 MG 16 daily. Center tablet insulin 0 Yes 25U Inject 25 [facility] regular 1-05 Units [facility] (HUMULIN 15:00: subcutaneo Med ical R,NOVOLIN 16 [facility] 3 Center R) 100 (three) unit/mL times injection daily before meals Sliding scale . prasugrel 0 Yes 10mg Take [address] (EFFIENT) 1-05 by mouth [facility] 10 mg Tab 15:00: every Medical tablet 16 other day Center . omeprazole 0 Yes 40mg QD Take [address] (PriLOSEC) 1-05 by mouth [facility] 40 MG 15:00: daily. Medical capsule 16 Center sacubitriL- Yes 1{tbl} Q.5D Take [address] valsartan 1-05 tablet by [facility] (ENTRESTO) 15:00: mouth 2 Medi little 24-26 mg 16 (two) Center Tab times daily. fluticasone Yes QD Inhale by [facility] -umeclidin- 1-05 mouth via Kathy es vilanter 15:00: inhaler Medica l (Trelegy 16 daily. Center Ellipta) 100-62.5-25 mcg DsDv brimonidine Yes 1[drp] Q.5D [address] [facility] [address] -timoloL 1-05 (two) [facility] (COMBIGAN) 15:00: times Medica l 0.2-0.5 % 16 daily LEFT Cent er ophthalmic EYE. solution insulin Yes 30U QD Inject 30 [facility] degludec 1-05 Units [facility] (Tresiba 15:00: subcutaneo Med ical FlexTouch 16 [facility] Center U-200) 200 daily. unit/mL (3 mL) InPn ethambutol Yes mycobacteri 1200mg QD Take 1,[address] (MYAMBUTOL) 1-05 um avium mg by Kathy es 400 MG 15:00: complex mouth Medical tablet 16 infection daily . Cente r albuterol 0 Yes 2{puff} Inhale [address] HFA 1-05 puffs by [facility] (VENTOLIN 15:00: mouth via Med ical HFA) 90 16 inhaler Center mcg/actuati every 6 on inhaler (six) hours as needed for Wheezing. rifAMPin 0 Yes 600mg QD Take [address] (RIFADIN) 1-05 mg by [facility] 300 MG 15:00: mouth Medical capsule 16 daily. [place] azithromyci 0 Yes 500mg QD Take [address] n 1-05 mg by [facility] (ZITHROMAX) 15:00: mouth Medic al 500 MG 16 daily. Center tablet insulin 0 Yes 25U Inject 25 [facility] regular 1-05 Units [facility] (HUMULIN 15:00: subcutaneo Med ical R,NOVOLIN 16 usly 3 Center R) 100 (three) unit/mL times injection daily before meals Sliding scale . prasugrel 0 Yes 10mg Take [address] (EFFIENT) 1-05 by mouth [facility] 10 mg Tab 15:00: every Medical tablet 16 other day Center . omeprazole 0 Yes 40mg QD Take [address] (PriLOSEC) 1-05 by mouth [facility] 40 MG 15:00: daily. Medical capsule 16 [place] sacubitriL- 0 Yes 1{tbl} Q.5D Take [address] valsartan 1-05 tablet by [facility] (ENTRESTO) 15:00: mouth 2 Medi little 24-26 mg 16 (two) Center Tab times daily. fluticasone 0 Yes QD Inhale by [facility] -umeclidin- 1-05 mouth via Kathy es vilanter 15:00: inhaler Medica l (Trelegy 16 daily. [place] Ellipta) 100-62.5-25 mcg DsDv brimonidine 0 Yes 1[drp] Q.5D [address] [facility] [address] -timoloL 1-05 (two) [facility] (COMBIGAN) 15:00: times Medica l 0.2-0.5 % 16 daily LEFT Cent er ophthalmic EYE. solution insulin 0 Yes 30U QD Inject 30 [facility] degludec 1-05 Units [facility] (Tresiba 15:00: subcutaneo Med ical FlexTouch 16 [facility] U-200) 200 daily. unit/mL (3 mL) InPn ethambutol 0 Yes mycobacteri 1200mg QD Take 1,[address] (MYAMBUTOL) 1-05 um avium mg by Kathy es 400 MG 15:00: complex mouth Medical tablet 16 infection daily . Cente r albuterol 2022-0 Yes 2{puff} Inhale [address] HFA 1-05 puffs by [facility] (VENTOLIN 15:00: mouth via Med ical HFA) 90 16 inhaler Center mcg/actuati every 6 on inhaler (six) hours as needed for Wheezing. rifAMPin 0 Yes 600mg QD Take [address] (RIFADIN) 1-05 mg by [facility] 300 MG 15:00: mouth Medical capsule 16 daily. [place] azithromyci 0 Yes 500mg QD Take [address] n 1-05 mg by [facility] (ZITHROMAX) 15:00: mouth Medic al 500 MG 16 daily. [place] tablet insulin Yes 25U Inject 25 [facility] regular 1-05 Units [facility] (HUMULIN 15:00: subcutaneo Med ical R,NOVOLIN 16 usly 3 Center R) 100 (three) unit/mL times injection daily before meals Sliding scale . prasugrel 0 Yes 10mg Take [address] (EFFIENT) 1-05 by mouth [facility] 10 mg Tab 15:00: every Medical tablet 16 other day Center . omeprazole 0 Yes 40mg QD Take [address] (PriLOSEC) 1-05 by mouth [facility] 40 MG 15:00: daily. Medical capsule 16 Center sacubitriL- 0 Yes 1{tbl} Q.5D Take [address] valsartan 1-05 tablet by [facility] (ENTRESTO) 15:00: mouth 2 Medi little 24-26 mg 16 (two) Center Tab times daily. fluticasone 2022-0 Yes QD Inhale by [facility] -umeclidin- 1-05 mouth via Kathy es vilanter 15:00: inhaler Medica l (Trelegy 16 daily. [place] Ellipta) 100-62.5-25 mcg DsDv brimonidine 0 Yes 1[drp] Q.5D [address] [address] -timoloL 1-05 (two) [facility] (COMBIGAN) 15:00: times Medica l 0.2-0.5 % 16 daily LEFT Cent er ophthalmic EYE. solution insulin Yes 30U QD Inject 30 [facility] degludec 1-05 Units [facility] (Tresiba 15:00: subcutaneo Med ical FlexTouch 16 us Center U-200) 200 daily. unit/mL (3 mL) InPn ethambutol Yes mycobacteri 1200mg QD Take 1,[address] (MYAMBUTOL) 1-05 um avium mg by Kathy es 400 MG 15:00: complex mouth Medical tablet 16 infection daily . Cente r albuterol Yes 2{puff} Inhale [address] HFA 1-05 puffs by [facility] (VENTOLIN 15:00: mouth via Med ical HFA) 90 16 inhaler Center mcg/actuati every 6 on inhaler (six) hours as needed for Wheezing. rifAMPin Yes 600mg QD Take [address] (RIFADIN) 1-05 mg by [facility] 300 MG 15:00: mouth Medical capsule 16 daily. [place] azithromyci Yes 500mg QD Take [address] n 1-05 mg by [facility] (ZITHROMAX) 15:00: mouth Medic al 500 MG 16 daily. Center tablet insulin Yes 25U Inject 25 [facility] regular 1-05 Units [facility] (HUMULIN 15:00: subcutaneo Med ical R,NOVOLIN 16 [facility] 3 Center R) 100 (three) unit/mL times injection daily before meals Sliding scale . prasugrel Yes 10mg Take [address] (EFFIENT) 1-05 by mouth [facility] 10 mg Tab 15:00: every Medical tablet 16 other day Center . omeprazole 0 Yes 40mg QD Take [address] (PriLOSEC) 1-05 by mouth [facility] 40 MG 15:00: daily. Medical capsule 16 Center sacubitriL- Yes 1{tbl} Q.5D Take [address] valsartan 1-05 tablet by [facility] (ENTRESTO) 15:00: mouth 2 Medi little 24-26 mg 16 (two) Center Tab times daily. fluticasone 0 Yes QD Inhale by [facility] -umeclidin- 1-05 mouth via Kathy es vilanter 15:00: inhaler Medica l (Trelegy 16 daily. [place] Ellipta) 100-62.5-25 mcg DsDv brimonidine Yes 1[drp] Q.5D [address] [facility] [address] -timoloL 1-05 (two) [facility] (COMBIGAN) 15:00: times Medica l 0.2-0.5 % 16 daily LEFT Cent er ophthalmic EYE. solution insulin Yes 30U QD Inject 30 [facility] degludec 1-05 Units [facility] (Tresiba 15:00: subcutaneo Med ical FlexTouch 16 [facility] U-200) 200 daily. unit/mL (3 mL) InPn ethambutol Yes mycobacteri 1200mg QD Take 1,[address] (MYAMBUTOL) 1-05 um avium mg by Kathy es 400 MG 15:00: complex mouth Medical tablet 16 infection daily . Cente r albuterol Yes 2{puff} Inhale [address] HFA 1-05 puffs by [facility] (VENTOLIN 15:00: mouth via Med ical HFA) 90 16 inhaler Center mcg/actuati every 6 on inhaler (six) hours as needed for Wheezing. rifAMPin Yes 600mg QD Take [address] (RIFADIN) 1-05 mg by [facility] 300 MG 15:00: mouth Medical capsule 16 daily. [place] azithromyci Yes 500mg QD Take [address] n 1-05 mg by [facility] (ZITHROMAX) 15:00: mouth Medic al 500 MG 16 daily. [place] tablet insulin Yes 25U Inject 25 [facility] regular 1-05 Units [facility] (HUMULIN 15:00: subcutaneo Med ical R,NOVOLIN 16 [facility] 3 Center R) 100 (three) unit/mL times injection daily before meals Sliding scale . prasugrel Yes 10mg Take [address] (EFFIENT) 1-05 by mouth [facility] 10 mg Tab 15:00: every Medical tablet 16 other day Center . omeprazole 2023-0 Yes 40mg QD Take [address] (PriLOSEC) 1-05 by mouth [facility] 40 MG 15:00: daily. Medical capsule 16 Center sacubitriL- Yes 1{tbl} Q.5D Take [address] valsartan 1-05 tablet by [facility] (ENTRESTO) 15:00: mouth 2 Medi little 24-26 mg 16 (two) [place] Tab times daily. fluticasone Yes QD Inhale by [facility] -umeclidin- 1-05 mouth via Kathy es vilanter 15:00: inhaler Medica l (Trelegy 16 daily. [place] Ellipta) 100-62.5-25 mcg DsDv brimonidine Yes 1[drp] Q.5D [address] [facility] [address] -timoloL 1-05 (two) [facility] (COMBIGAN) 15:00: times Medica l 0.2-0.5 % 16 daily LEFT Cent er ophthalmic EYE. solution insulin Yes 30U QD Inject 30 [facility] degludec 1-05 Units [facility] (Tresiba 15:00: subcutaneo Med ical FlexTouch 16 [facility] U-200) 200 daily. unit/mL (3 mL) InPn ethambutol Yes mycobacteri 1200mg QD Take 1,[address] (MYAMBUTOL) 1-05 um avium mg by Kathy es 400 MG 15:00: complex mouth Medical tablet 16 infection daily . Cente r albuterol Yes 2{puff} Inhale [address] HFA 1-05 puffs by [facility] (VENTOLIN 15:00: mouth via Med ical HFA) 90 16 inhaler Center mcg/actuati every 6 on inhaler (six) hours as needed for Wheezing. rifAMPin Yes 600mg QD Take [address] (RIFADIN) 1-05 mg by [facility] 300 MG 15:00: mouth Medical capsule 16 daily. [place] azithromyci Yes 500mg QD Take [address] n 1-05 mg by [facility] (ZITHROMAX) 15:00: mouth Medic al 500 MG 16 daily. [place] tablet insulin Yes 25U Inject 25 [facility] regular 1-05 [facility] (HUMULIN 15:00: subcutaneo Med ical R,NOVOLIN 16 usly 3 Center R) 100 (three) unit/mL times injection daily before meals Sliding scale . prasugrel Yes 10mg Take [address] (EFFIENT) 1-05 by mouth [facility] 10 mg Tab 15:00: every Medical tablet 16 other day Center . omeprazole Yes 40mg QD Take [address] (PriLOSEC) 1-05 by mouth [facility] 40 MG 15:00: daily. Medical capsule 16 Center sacubitriL- Yes 1{tbl} Q.5D Take [address] valsartan 1-05 tablet by [facility] (ENTRESTO) 15:00: mouth 2 Medi little 24-26 mg 16 (two) Center Tab times daily. fluticasone Yes QD Inhale by [facility] -umeclidin- 1-05 mouth via Kathy es vilanter 15:00: inhaler Medica l (Trelegy 16 daily. Center Ellipta) 100-62.5-25 mcg DsDv brimonidine Yes 1[drp] Q.5D [address] -timoloL 1-05 (two) [facility] (COMBIGAN) 15:00: times Medica l 0.2-0.5 % 16 daily LEFT Cent er ophthalmic EYE. solution insulin Yes 30U QD Inject 30 [facility] degludec 1-05 [facility] (Tresiba 15:00: subcutaneo Med ical FlexTouch 16 [facility] Center U-200) 200 daily. unit/mL (3 mL) InPn ETHAMBUTOL 2021-06 Yes 300mg Take 300 [facility] HCL OR 2-07 mg by [facility] 13:39: mouth two of 07 times Medicin daily. e Indication s: Is NOT TAKING YET ,,,will start 11/29/17 RifAMPin 2021-06 Yes 400mg Take 400 [facility] (RIFADIN 2-07 mg by College OR) 13:39: mouth two of 07 times Medicin daily. e albuterol 2021-06 Yes 2{puff} 2 Puffs by [facility] 108 (90 2-07 Inhalation [facility] base) 13:39: route as of mcg/act 07 needed. Medicin inhaler e LOTEMAX SM 2021-06 Yes 1[drp] Place 1 [facility] 0.38 % GEL 2-07 Drop into [facility] e[facility] 00:00: the left of 00 eye 3 Medicin times e daily. moxifloxaci 2021-06 Yes 1[drp] Place 1 [facility] n (VIGAMOX) 2-07 Drop into Col lege 0.5 % 00:00: the left of ophthalmic 00 eye 3 Medicin solution times e daily. Bromfenac 2021-06 Yes 1[drp] Place 1 [place] [facility] Sodium 2-07 Drop into [facility] (PROLENSA) 00:00: the left of 0.07 % SOLN 00 eye daily. Me dicin Use once e daily until finished with the bottle ethambutol 2021-06 Yes mycobacteri 1200mg QD Take 1,[address] [facility] (MYAMBUTOL) 1-14 um avium mg by Kathy es 400 MG 22:41: complex mouth Medical tablet 29 infection daily . Cente r albuterol 2021-06 Yes 2{puff} Inhale [address] HFA 1-14 [facility]uffs by [facility] (VENTOLIN 22:41: mouth via Med ical HFA) 90 29 inhaler Center mcg/actuati every 6 on inhaler (six) hours as needed for Wheezing. rifAMPin 2021-06 Yes 600mg QD Take [address] [facility] (RIFADIN) 1-14 mg by [facility] 300 MG 22:41: mouth Medical capsule 29 daily. [place] azithromyci 2021-06 Yes 500mg QD Take [address] n 1-14 mg by [facility] (ZITHROMAX) 22:41: mouth Medic al 500 MG 29 daily. [place] tablet insulin 2021-06 Yes 25U Inject 25 [facility] (HUMULIN 22:41: subcutaneo Med ical R,NOVOLIN 29 usly 3 Center R) 100 (three) unit/mL times injection daily before meals Sliding scale . prasugrel 2021-06 Yes 10mg Take [address] [facility] (EFFIENT) 1-14 by [facility] 10 mg Tab 22:41: every Medical tablet 29 other day Center . omeprazole 2021-06 Yes 40mg QD Take [address] (PriLOSEC) 1-14 by [facility] 40 MG 22:41: daily. Medical capsule 29 [place] sacubitriL- 2021-06 Yes 1{tbl} Q.5D Take [address] [facility] [address] [facility] valsartan 1-14 tablet by [facility] (ENTRESTO) 22:41: mouth 2 Medi little 24-26 mg 29 (two) [place] Tab times daily. fluticasone 2021-06 Yes QD Inhale by [facility] -umeclidin- 1-14 mouth via Kathy es vilanter 22:41: inhaler Medica l (Trelegy 29 daily. [place] Ellipta) 100-62.5-25 mcg DsDv brimonidine 2021-06 Yes 1[drp] Q.5D [address] [facility] -timoloL 1-14 (two) [facility] (COMBIGAN) 22:41: times Medica l 0.2-0.5 % 29 daily LEFT Cent er ophthalmic EYE. solution insulin 2021-06 Yes 30U QD Inject 30 [facility] degludec 1-14 [facility] (Tresiba 22:41: subcutaneo Med ical FlexTouch 29 [facility] U-200) 200 daily. unit/mL (3 mL) InPn ethambutol 2021-06 Yes mycobacteri 1200mg QD Take 1,[address] [facility] (MYAMBUTOL) 1-14 um avium mg by Kathy es 400 MG 22:41: complex mouth Medical tablet 29 infection daily . Cente r albuterol 2021-06 Yes 2{puff} Inhale [address] HFA 1-14 puffs by [facility] (VENTOLIN 22:41: mouth via Med ical HFA) 90 29 inhaler Center mcg/actuati every 6 on inhaler (six) hours as needed for Wheezing. rifAMPin 2021-06 Yes 600mg QD Take [address] [facility] (RIFADIN) 1-14 mg by [facility] 300 MG 22:41: mouth Medical capsule 29 daily. [place] azithromyci 2021-06 Yes 500mg QD Take [address] n 1-14 mg by [facility] (ZITHROMAX) 22:41: mouth Medic al 500 MG 29 daily. [place] tablet insulin 2021-06 Yes 25U Inject 25 [facility] (HUMULIN 22:41: subcutaneo Med ical R,NOVOLIN 29 usly 3 Center R) 100 (three) unit/mL times injection daily before meals Sliding scale . prasugrel 2021-06 Yes 10mg Take [address] [facility] [address] [facility] (EFFIENT) 1-14 by [facility] 10 mg Tab 22:41: every Medical tablet 29 other day Center . omeprazole 2021-06 Yes 40mg QD Take [address] (PriLOSEC) 1-14 by [facility] 40 MG 22:41: daily. Medical capsule 29 Center sacubitriL- 2021-06 Yes 1{tbl} Q.5D Take [address] [facility] valsartan 1-14 tablet by [facility] (ENTRESTO) 22:41: mouth 2 Medi little 24-26 mg 29 (two) Center Tab times daily. fluticasone 2021-06 Yes QD Inhale by [facility] -umeclidin- 1-14 mouth via Kathy es vilanter 22:41: inhaler Medica l (Trelegy 29 daily. Center Ellipta) 100-62.5-25 mcg DsDv brimonidine 2021-06 Yes 1[drp] Q.5D [address] [facility] -timoloL 1-14 (two) [facility] (COMBIGAN) 22:41: times Medica l 0.2-0.5 % 29 daily LEFT Cent er ophthalmic EYE. solution insulin 2021-06 Yes 30U QD Inject 30 [facility] de[facility]ec 1-14 [facility] (Tresiba 22:41: subcutaneo Med ical FlexTouch 29 [facility] Center U-200) 200 daily. unit/mL (3 mL) InPn ethambutol 2021-06 Yes mycobacteri 1200mg QD Take 1,[address] [facility] (MYAMBUTOL) 1-14 um avium mg by Kathy es 400 MG 22:41: complex mouth Medical tablet 29 infection daily . Cente r albuterol 2021-06 Yes 2{puff} Inhale [address] HFA 1-14 puffs by [facility] (VENTOLIN 22:41: mouth via Med ical HFA) 90 29 inhaler Center mcg/actuati every 6 on inhaler (six) hours as needed for Wheezing. rifAMPin 2022-1 Yes 600mg QD Take [address] [facility] [address] (RIFADIN) 1-14 mg by [facility] 300 MG 22:41: mouth Medical capsule 29 daily. [place] azithromyci 2021-06 Yes 500mg QD Take [address] n 1-14 mg by [facility] (ZITHROMAX) 22:41: mouth Medic al 500 MG 29 daily. Center tablet insulin 2021-06 Yes 25U Inject 25 [facility] (HUMULIN 22:41: subcutaneo Med ical R,NOVOLIN 29 us 3 Center R) 100 (three) unit/mL times injection daily before meals Sliding scale . prasugrel 2021-06 Yes 10mg Take [address] [facility] [address] [facility] (EFFIENT) 1-14 by mouth [facility] 10 mg Tab 22:41: every Medical tablet 29 other day Center . omeprazole 2021-06 Yes 40mg QD Take [address] (PriLOSEC) 1-14 by mouth [facility] 40 MG 22:41: daily. Medical capsule 29 Center sacubitriL- 2021-06 Yes 1{tbl} Q.5D Take [address] [facility] valsartan 1-14 tablet by [facility] (ENTRESTO) 22:41: mouth 2 Medi little 24-26 mg 29 (two) Center Tab times daily. fluticasone 2021-06 Yes QD Inhale by [facility] -umeclidin- 1-14 mouth via Kathy es vilanter 22:41: inhaler Medica l (Trelegy 29 daily. [place] Ellipta) 100-62.5-25 mcg DsDv brimonidine 2021-06 Yes 1[drp] Q.5D [address] [facility] -timoloL 1-14 (two) [facility] (COMBIGAN) 22:41: times Medica l 0.2-0.5 % 29 daily LEFT Cent er ophthalmic EYE. solution insulin 2021-06 Yes 30U QD Inject 30 [facility] degludec 1-14 [facility] (Tresiba 22:41: subcutaneo Med ical FlexTouch 29 [facility] Center U-200) 200 daily. unit/mL (3 mL) InPn traMADoL 2021-06- No 50mg Take [address] [facility] (ULTRAM) 50 1-14 11-19 tablet (50 [facility] mg tablet 00:00: 23:59 mg total) Me dical 00 :00 by mouth Center every 6 (six) hours as needed for Pain for up to 5 days. Max Daily Amount: 200 mg traMADoL 2021-06- No 50mg Take [address] [facility] (ULTRAM) 50 -14 -19 tablet (50 [facility] mg tablet 00:00: 23:59 mg total) Me dical 00 :00 by mouth Center every 6 (six) hours as needed for Pain for up to 5 days. Max Daily Amount: 200 mg traMADoL 2021-06- No 50mg Take [address] [facility] (ULTRAM) 50 14 -19 tablet (50 [facility] mg tablet 00:00: 23:59 mg total) Me dical 00 :00 by mouth Center every 6 (six) hours as needed for Pain for up to 5 days. Max Daily Amount: 200 mg traMADoL 2021-06- No 50mg Take [address] [facility] (ULTRAM) 50 07-03-19 tablet (50 [facility] mg tablet 00:00: 23:59 mg total) Me dical 00 :00 by mouth Center every 6 (six) hours as needed for Pain for up to 5 days. Max Daily Amount: 200 mg traMADoL 2021-06- No 50mg Take [address] [facility] (ULTRAM) 50 07-03-19 tablet (50 [facility] mg tablet 00:00: 23:59 mg total) Me dical 00 :00 by mouth Center every 6 (six) hours as needed for Pain for up to 5 days. Max Daily Amount: 200 mg traMADoL 2021-06- No 50mg Take [address] [facility] (ULTRAM) 50 -14 -19 tablet (50 [facility] mg tablet 00:00: 23:59 mg total) Me dical 00 :00 by mouth Center every 6 (six) hours as needed for Pain for up to 5 days. Max Daily Amount: 200 mg traMADoL 2021-06- No 50mg Take [address] [facility] (ULTRAM) 50 -14 -19 tablet (50 [facility] mg tablet 00:00: 23:59 mg total) Me dical 00 :00 by mouth Center every 6 (six) hours as needed for Pain for up to 5 days. Max Daily Amount: 200 mg traMADoL 2021-06 No 50mg Take [address] [facility] (ULTRAM) 50 -14 11-19 tablet (50 [facility] mg tablet 00:00: 23:59 mg total) Me dical 00 :00 by mouth Center every 6 (six) hours as needed for Pain for up to 5 days. Max Daily Amount: 200 mg traMADoL 2021-06- No 50mg Take [address] [facility] (ULTRAM) 50 -14 11-19 tablet (50 [facility] mg tablet 00:00: 23:59 mg total) Me dical 00 :00 by mouth Center every 6 (six) hours as needed for Pain for up to 5 days. Max Daily Amount: 200 mg traMADoL 2021-06- No 50mg Take [address] [facility] (ULTRAM) 50 07-03-19 tablet (50 [facility] mg tablet 00:00: 23:59 mg total) Me dical 00 :00 by mouth Center every 6 (six) hours as needed for Pain for up to 5 days. Max Daily Amount: 200 mg ELIQUIS 5 2021-06 Yes 5mg Take 5 mg [place] [facility] MG TABS 0-24 by mouth [place] 00:00: two times of 00 daily. Medicin e ELIQUIS 5 2021-06 Yes 5mg Take 5 mg [place] [facility] MG TABS 0-24 by mouth [place] 00:00: two times of 00 daily. Medicin e RifAMPin 2021-06 Yes 400mg Take 400 [facility] (RIFADIN 0-17 mg by [place] OR) 16:23: mouth two of 01 times Medicin daily. e RifAMPin 2021-06 Yes 400mg Take 400 [facility] (RIFADIN 0-17 mg by [place] OR) 16:23: mouth two of 01 times Medicin daily. e ETHAMBUTOL 2021-06 Yes 300mg Take 300 [facility] HCL OR 0-17 mg by [place] 16:22: mouth two of 36 times Medicin daily. e Indication s: Is NOT TAKING YET ,,,will start 11/29/17 albuterol 2021-06 Yes 2{puff} 2 Puffs by [facility] 108 (90 0-17 [facility] [employer] 16:22: route as of mcg/act 36 needed. Medicin inhaler e ETHAMBUTOL 2021-06 Yes 300mg Take 300 [facility] HCL OR 0-17 mg by [place] 16:22: mouth two of 36 times Medicin daily. e Indication s: Is NOT TAKING YET ,,,will start 11/29/17 albuterol 2021-06 Yes 2{puff} 2 Puffs by [facility] 108 (90 0-17 [facility] 16:22: route as of mcg/act 36 needed. Medicin inhaler e ETHAMBUTOL 2021-06 Yes 300mg Take 300 [facility] HCL OR 0-12 mg by [place] 10:22: mouth two of 51 times Medicin daily. e Indication s: Is NOT TAKING YET ,,,will start 11/29/17 RifAMPin 2021-06 Yes 400mg Take 400 [facility] (RIFADIN 0-12 mg by [place] OR) 10:22: mouth two of 51 times Medicin daily. e albuterol 2021-06 Yes 2{puff} 2 Puffs by [facility] 108 (90 0-12 [facility] [employer] 10:22: route as of mcg/act 51 needed. Medicin inhaler e acetaminoph 2021-06 Yes 1{tbl} Take 1 [facility] en-codeine 0-12 Tablet by [facility] (TYLENOL/CO 00:00: mouth of DEINE #3) 00 every 4 Medicin 300-30 MG hours as e per tablet needed. acetaminoph 2021-06 Yes 1{tbl} Take 1 [facility] en-codeine 0-12 Tablet by [facility] (TYLENOL/CO 00:00: mouth of DEINE #3) 00 every 4 Medicin 300-30 MG hours as e per tablet needed. acetaminoph 2021-06 Yes 1{tbl} Take 1 [facility] en-codeine 0-12 Tablet by [facility] (TYLENOL/CO 00:00: mouth of DEINE #3) 00 every 4 Medicin 300-30 MG hours as e per tablet needed. gabapentin Yes 600mg Take 1 [facility] (NEURONTIN) 9-22 Tablet by [facility] 600 MG 00:00: mouth 3 of tablet 00 times Medicin daily. e mupirocin Yes Apply to [facility] (BACTROBAN) 9-22 affected [facility] 2 % 00:00: area daily of ointment 00 Medicin e gabapentin Yes 600mg Take 1 [facility] (NEURONTIN) 03-11 Tablet by [facility] 600 MG 00:00: mouth 3 of tablet 00 times Medicin daily. e gabapentin 0 Yes 600mg Take 1 [facility] (NEURONTIN) 03-11 Tablet by [facility] 600 MG 00:00: mouth 3 of tablet 00 times Medicin daily. e gabapentin 0 Yes 600mg Take 1 [facility] (NEURONTIN) 03-11 Tablet by [facility] 600 MG 00:00: mouth 3 of tablet 00 times Medicin daily. e gabapentin 2022- No 600mg Take 1 [place] [facility] (NEURONTIN) 03-11 03-09 Tablet by [facility] 600 MG 00:00: 00:00 mouth 3 of tablet 00 :00 times Medicin daily. e mupirocin 2021- No Apply to [place] [facility] (BACTROBAN) 03-11 10-17 affected [facility] 2 % 00:00: 00:00 area daily of ointment 00 :00 Medicin e mupirocin 2021- No Apply to [place] [facility] (BACTROBAN) 03-11 1017 affected [facility] 2 % 00:00: 00:00 area daily of ointment 00 :00 Medicin e clindamycin Yes [facility] (CLEOCIN) 03-08 [facility] 300 MG 00:00: of capsule 00 Medicin e clindamycin Yes [facility] (CLEOCIN) 03-08 [facility] 300 MG 00:00: of capsule 00 Medicin e clindamycin Yes [facility] (CLEOCIN) 03-08 [facility] 300 MG 00:00: of capsule 00 Medicin e clindamycin 2021- No [facility] (CLEOCIN) 9-19 12-07 [facility] 300 MG 00:00: 00:00 of capsule 00 :00 Medicin e GLOBAL EASE 2021- Yes [facility] INJECT PEN 9-15 [place] NEEDLES 32G 00:00: of X 4 MM MISC 00 Medicin e GLOBAL EASE Yes [facility] INJECT PEN 9-15 [place] NEEDLES 32G 00:00: of X 4 MM MISC 00 Medicin e GLOBAL EASE 2021- Yes [facility] INJECT PEN 9-15 [place] NEEDLES 32G 00:00: of X 4 MM MISC 00 Medicin e GLOBAL EASE 2021-0 Yes [facility] INJECT PEN 9-15 [place] NEEDLES 32G 00:00: of X 4 MM MISC 00 Medicin e GLOBAL EASE 2021-0 Yes [facility] INJECT PEN 9-15 [place] NEEDLES 32G 00:00: of X 4 MM MISC 00 Medicin e quetiapine 2021-0 Yes [facility] (SEROQUEL) 8-25 [facility] 100 MG 00:00: of tablet 00 Medicin e omeprazole 2021-0 Yes [facility] (PRILOSEC) 8-25 [facility] 40 MG 00:00: of capsule 00 Medicin e ELIQUIS 5 2021-0 Yes [facility] MG TABS 8-25 [facility] 00:00: of 00 Medicin e quetiapine 2021-0 Yes [facility] (SEROQUEL) 8-25 [facility] 100 MG 00:00: of tablet 00 Medicin e omeprazole 2021-0 Yes [facility] (PRILOSEC) 8-25 [facility] 40 MG 00:00: of capsule 00 Medicin e quetiapine 2021-0 Yes [facility] (SEROQUEL) 8-25 [facility] 100 MG 00:00: of tablet 00 Medicin e omeprazole 2021-0 Yes [facility] (PRILOSEC) 8-25 [facility] 40 MG 00:00: of capsule 00 Medicin e quetiapine 2021-0 Yes [facility] (SEROQUEL) 8-25 [facility] 100 MG 00:00: of tablet 00 Medicin e omeprazole 2021-0 Yes [facility] (PRILOSEC) 8-25 [facility] 40 MG 00:00: of capsule 00 Medicin e quetiapine 2021-0 Yes [facility] (SEROQUEL) 8-25 [facility] 100 MG 00:00: of tablet 00 Medicin e omeprazole 2021-0 Yes [facility] (PRILOSEC) 8-25 [facility] 40 MG 00:00: of capsule 00 Medicin e ELIQUIS 5 2021-0 2- No [facility] MG TABS 8-25 10-24 [facility] 00:00: 00:00 of 00 :00 Medicin e ELIQUIS 5 2021-0 2022- No [facility] MG TABS 8-25 10-24 [facility] 00:00: 00:00 of 00 :00 Medicin e ETHAMBUTOL 2022-0 Yes 300mg Take 300 [facility] HCL OR 8-17 mg by [place] 10:15: mouth two of 54 times Medicin daily. e Indication s: Is NOT TAKING YET ,,,will start 11/29/17 RifAMPin Yes 400mg Take 400 [facility] (RIFADIN 8-17 mg by [place] OR) 10:15: mouth two of 54 times Medicin daily. e albuterol Yes 2{puff} 2 Puffs by [facility] 108 (90 8 [facility]ation [facility] [employer] [facility]) 10:15: route as of mcg/act 54 needed. Medicin inhaler e azithromyci 2021- No 500mg Take 500 [facility] n 8- 08-17 mg by [place] (ZITHROMAX) 10:15: 00:00 mouth of 500 MG 04 :00 daily. Medicin tablet e Aspirin 81 0 2021- No 81mg Take 81 mg [facility] MG tablet 02-03 by mouth [facility] 10:14: 00:00 daily. of 55 :00 Medicin e lidocaine Yes [id number] 1{patch Place 1 [facility] (LIDODERM) 02-03 [id number] } Patch onto [facility] 5 % patch 00:00: the skin of 00 every 24 Medicin hours. e acetaminoph Yes 1{tbl} Take 1 [facility] en-codeine 02-[address] [facility] (TYLENOL/CO 00:00: mouth of DEINE #3) 00 every 4 Medicin 300-30 MG hours as e per tablet needed. gabapentin 0 Yes [id number] 400mg Take 1 [facility] (NEURONTIN) 02-03 [id number] capsule by [place] 400 MG 00:00: mouth 3 of capsule 00 times Medicin daily. e lidocaine 2021-0 Yes [id number] 1{patch Place 1 [facility] (LIDODERM) 8 [id number] } Patch onto [facility] 5 % patch 00:00: the skin of 00 every 24 Medicin hours. e lidocaine 2021-0 2021- No [id number] 1{patch Place 1 [facility] (LIDODERM) 8- 1017 [id number] } Patch onto [facility] 5 % patch 00:00: 00:00 the skin of 00 :00 every 24 Medicin hours. e lidocaine 2021- No [id number] 1{patch Place 1 [facility] (LIDODERM) 02-03 [id number] } Patch onto [place] 5 % patch 00:00: 00:00 the skin of 00 :00 every 24 Medicin hours. e acetaminoph 2021- No 1{tbl} Take 1 [facility] en-codeine 8-17 10-12 Tablet by [facility] (TYLENOL/CO 00:00: 00:00 mouth of DEINE #3) 00 :00 every 4 Medicin 300-30 MG hours as e per tablet needed. acetaminoph 2021- No 1{tbl} Take 1 [facility] en-codeine 8-17 10-12 Tablet by [facility] (TYLENOL/CO 00:00: 00:00 mouth of DEINE #3) 00 :00 every 4 Medicin 300-30 MG hours as e per tablet needed. acetaminoph 2021- No 1{tbl} Take 1 [facility] en-codeine 8-17 10-12 Tablet by [facility] (TYLENOL/CO 00:00: 00:00 mouth of DEINE #3) 00 :00 every 4 Medicin 300-30 MG hours as e per tablet needed. gabapentin 2021- No [id number] 400mg Take 1 [facility] (NEURONTIN) 02-03 [id number] capsule by [place] 400 MG 00:00: 00:00 mouth 3 of capsule 00 :00 times Medicin daily. e ethambutol Yes mycobacteri 1200mg QD Take 1,[address] [facility] (MYAMBUTOL) 7-25 um avium mg by Kathy es 400 MG 20:38: complex mouth Medical tablet 07 infection daily . Cente r albuterol Yes 2{puff} Inhale [address] HFA 7-25 puffs by [facility] (VENTOLIN 20:38: mouth via Med ical HFA) 90 07 inhaler Center mcg/actuati every 6 on inhaler (six) hours as needed for Wheezing. rifAMPin 0 Yes 600mg QD Take [address] [facility] (RIFADIN) 7-25 mg by [facility] 300 MG 20:38: mouth Medical capsule 07 daily. Center azithromyci Yes 500mg QD Take [address] n 7-25 mg by [facility] (ZITHROMAX) 20:38: mouth Medic al 500 MG 07 daily. Center tablet insulin Yes 25U Q.5D Inject 25 [facility] regular 7-[facility] (HUMULIN 20:38: subcutaneo Med ical R,NOVOLIN 07 usly 2 Center R) 100 (two) unit/mL times injection daily Sliding scale . prasugrel Yes 10mg Take [address] [facility] (EFFIENT) 7-25 by mouth [facility] 10 mg Tab 20:38: every Medical tablet 07 other day Center . omeprazole Yes 40mg QD Take [address] (PriLOSEC) 7-25 by mouth [facility] 40 MG 20:38: daily. Medical capsule 07 Center sacubitriL- Yes 1{tbl} Q.5D Take [address] valsartan 7-25 tablet by [facility] (ENTRESTO) 20:38: mouth 2 Medi little 24-26 mg 07 (two) Center Tab times daily. fluticasone Yes QD Inhale by [facility] -umeclidin- 7-25 mouth via Kathy es vilanter 20:38: inhaler Medica l (Trelegy 07 daily. [place] Ellipta) 100-62.5-25 mcg DsDv brimonidine Yes 1[drp] Q.5D [address] [facility] -timoloL 7-25 (two) [facility] (COMBIGAN) 20:38: times Medica l 0.2-0.5 % 07 daily LEFT Cent er ophthalmic EYE. solution insulin Yes 30U QD Inject 30 [facility] degludec 7-25 [facility] (Tresiba 20:38: subcutaneo Med ical FlexTouch 07 [facility] Center U-200) 200 daily. unit/mL (3 mL) InPn ethambutol Yes mycobacteri 1200mg QD Take 1,[address] [facility] (MYAMBUTOL) 7-25 um avium mg by Kathy es 400 MG 20:38: complex mouth Medical tablet 07 infection daily . Cente r albuterol Yes 2{puff} Inhale [address] HFA 7-25 puffs by [facility] (VENTOLIN 20:38: mouth via Med ical HFA) 90 07 inhaler Center mcg/actuati every 6 on inhaler (six) hours as needed for Wheezing. rifAMPin Yes 600mg QD Take [address] [address] (RIFADIN) 7-25 mg by [facility] 300 MG 20:38: mouth Medical capsule 07 daily. Center azithromyci Yes 500mg QD Take [address] n 7-25 mg by [facility] (ZITHROMAX) 20:38: mouth Medic al 500 MG 07 daily. Center tablet insulin Yes 25U Q.5D Inject 25 [facility] regular 7-[facility] (HUMULIN 20:38: subcutaneo Med ical R,NOVOLIN 07 usly 2 Center R) 100 (two) unit/mL times injection daily Sliding scale . prasugrel Yes 10mg Take [address] [facility] [address] [facility] (EFFIENT) 7-25 by mouth [facility] 10 mg Tab 20:38: every Medical tablet 07 other day Center . omeprazole Yes 40mg QD Take [address] (PriLOSEC) 7-25 by mouth [facility] 40 MG 20:38: daily. Medical capsule 07 Center sacubitriL- Yes 1{tbl} Q.5D Take [address] valsartan 7-25 tablet by [facility] (ENTRESTO) 20:38: mouth 2 Medi little 24-26 mg 07 (two) Center Tab times daily. fluticasone Yes QD Inhale by [facility] -umeclidin- 7-25 mouth via Kathy es vilanter 20:38: inhaler Medica l (Trelegy 07 daily. Center Ellipta) 100-62.5-25 mcg DsDv brimonidine Yes 1[drp] Q.5D [address] [facility] -timoloL 7-25 (two) [facility] (COMBIGAN) 20:38: times Medica l 0.2-0.5 % 07 daily LEFT Cent er ophthalmic EYE. solution insulin Yes 30U QD Inject 30 [facility] degludec 7-25 [facility] (Tresiba 20:38: subcutaneo Med ical FlexTouch 07 [facility] U-200) 200 daily. unit/mL (3 mL) InPn aspirin 81 2021-2021- No 81mg QD Take [address] MG EC -11 01-25 by mouth [facility] tablet 16:36: 00:00 daily. Medical 28 :00 [place] atorvastati 2021- No 80mg QD Take [address] [facility] n (LIPITOR) 7-25 by mouth [facility] 80 MG 16:36: 00:00 daily. Medical tablet 28 :00 [place] sulfamethox 2021-2021- No 1{tbl} Q.5D Take [address] azole-trime 7-11 01-25 tablet by Annita kes thoprim 16:36: 00:00 mouth 2 Medica l (BACTRIM 28 :00 (two) Center ) 800-160 times mg per daily. tablet aspirin 81 2021-2021- No 81mg QD Take [address] [facility] MG EC 01-11- by mouth [facility] tablet 16:36: 00:00 daily. Medical 28 :00 [place] atorvastati 2021- No 80mg QD Take [address] [facility] n (LIPITOR) 7- by mouth [facility] 80 MG 16:36: 00:00 daily. Medical tablet 28 :00 [place] sulfamethox 2021-2021- No 1{tbl} Q.5D Take [address] azole-trime 7- 07-25 tablet by Annita kes thoprim 16:36: 00:00 mouth 2 Medica l (BACTRIM 28 :00 (two) [facility]) 800-160 times mg per daily. tablet aspirin 81 2021-0 2021- No 81mg QD Take [address] [facility] MG EC 7-11 01-25 by mouth [facility] tablet 16:36: 00:00 daily. Medical 28 :00 [place] atorvastati 2021-2021- No 80mg QD Take [address] [facility] n (LIPITOR) 7-11 01-25 by mouth [facility] es 80 MG 16:36: 00:00 daily. Medical tablet 28 :00 [place] sulfamethox 2021-0 2021- No 1{tbl} Q.5D Take [address] azole-trime 7-11 01-25 tablet by Annita kes thoprim 16:36: 00:00 mouth 2 Medica l (BACTRIM 28 :00 ([facility]) 800-160 times mg per daily. tablet aspirin 81 2021- No 81mg QD Take [address] [facility] MG EC -11 01-25 by mouth [facility] tablet 16:36: 00:00 daily. Medical 28 :00 [place] atorvastati 2021- No 80mg QD Take [address] [facility] n (LIPITOR) 01-11-25 by mouth [facility] es 80 MG 16:36: 00:00 daily. Medical tablet 28 :00 [place] sulfamethox 2021- No 1{tbl} Q.5D Take [address] azole-trime 7-11 01-25 tablet by Annita kes thoprim 16:36: 00:00 mouth 2 Medica l (BACTRIM 28 :00 ([facility]) 800-160 times mg per daily. tablet aspirin 81 2021- No 81mg QD Take [address] [facility] MG EC 01-11- by mouth [facility] tablet 16:36: 00:00 daily. Medical 28 :00 [place] atorvastati 2021- No 80mg QD Take [address] [facility] n (LIPITOR) 01-11- by mouth [facility] es 80 MG 16:36: 00:00 daily. Medical tablet 28 :00 [place] sulfamethox 2021- No 1{tbl} Q.5D Take [address] azole-trime -11 01-25 tablet by Annita kes thoprim 16:36: 00:00 mouth 2 Medica l (BACTRIM 28 :00 ([facility]) 800-160 times mg per daily. tablet aspirin 81 2021-2021- No 81mg QD Take [address] [facility] MG EC -11 01-25 by mouth [facility] tablet 16:36: 00:00 daily. Medical 28 :00 [place] atorvastati 2021- No 80mg QD Take [address] [facility] n (LIPITOR) 7 07-25 by mouth Kathy es 80 MG 16:36: 00:00 daily. Medical tablet 28 :00 [place] sulfamethox 2021- No 1{tbl} Q.5D Take [address] azole-trime 7-25 07-25 tablet by Annita kes thoprim 16:36: 00:00 mouth 2 Medica l (BACTRIM 28 :00 ([facility]) 800-160 times mg per daily. tablet aspirin 81 2021- No 81mg QD Take [address] [facility] MG EC 7-11 01-25 by mouth [facility] tablet 16:36: 00:00 daily. Medical 28 :00 [place] atorvastati 2021- No 80mg QD Take [address] [facility] n (LIPITOR) 7 07-25 by mouth [facility] es 80 MG 16:36: 00:00 daily. Medical tablet 28 :00 [place] sulfamethox 2021-2021- No 1{tbl} Q.5D Take [address] azole-trime 7-25 07-25 tablet by Annita kes thoprim 16:36: 00:00 mouth 2 Medica l (BACTRIM 28 :00 ([facility]) 800-160 times mg per daily. tablet aspirin 81 2021- No 81mg QD Take [address] [facility] MG EC 01-11-25 by mouth [facility] tablet 16:36: 00:00 daily. Medical 28 :00 [place] atorvastati 2021- No 80mg QD Take [address] [facility] n (LIPITOR) 7- 07-25 by mouth Kathy es 80 MG 16:36: 00:00 daily. Medical tablet 28 :00 [place] sulfamethox 2021- No 1{tbl} Q.5D Take [address] azole-trime 7-25 07-25 tablet by Annita kes thoprim 16:36: 00:00 mouth 2 Medica l (BACTRIM 28 :00 ([facility]) 800-160 times mg per daily. tablet aspirin 81 2021-2021- No 81mg QD Take [address] [facility] MG EC 7-11 01-25 by mouth [facility] tablet 16:36: 00:00 daily. Medical 28 :00 [place] atorvastati 2021- No 80mg QD Take [address] [facility] n (LIPITOR) 7- 07-25 by mouth Kathy es 80 MG 16:36: 00:00 daily. Medical tablet 28 :00 [place] sulfamethox 2021- No 1{tbl} Q.5D Take [address] azole-trime 7-25 07-25 tablet by Annita kes thoprim 16:36: 00:00 mouth 2 Medica l (BACTRIM 28 :00 (Formerly [facility]) 800-160 times mg per daily. tablet aspirin 81 2021- 202- No 81mg QD Take [address] [facility] EC 7- 07-25 [facility] 16:36: 00:00 daily. Medical 28 :00 [place] atorvastati 2021- No 80mg QD Take [address] [facility] (LIPITOR) 7- 07-25 by mouth Kathy es 80 MG 16:36: 00:00 daily. Medical tablet 28 :00 [place] sulfamethox 2021- No 1{tbl} Q.5D Take [address] azole-trime 7-25 07-25 tablet by Annita kes thoprim 16:36: 00:00 mouth 2 Medica l (BACTRIM 28 :00 (Formerly [facility]) 800-160 times mg per daily. tablet aspirin 81 2021- No 81mg QD Take [address] [facility] MG EC 7-11 01-25 by mouth [facility] 16:36: 00:00 daily. Medical 28 :00 [place] atorvastati 2021- No 80mg QD Take [address] [facility] (LIPITOR) 7- 07-25 by mouth Kathy es 80 MG 16:36: 00:00 daily. Medical tablet 28 :00 [place] sulfamethox 2021- No 1{tbl} Q.5D Take [address] azole-trime 7-25 07-25 tablet by Annita kes thoprim 16:36: 00:00 mouth 2 Medica l (BACTRIM 28 :00 (Formerly [facility]) 800-160 times mg per daily. tablet aspirin 81 2021-2021- No 81mg QD Take [address] [facility] MG EC 7- 07-25 by mouth [facility] 16:36: 00:00 daily. Medical 28 :00 [place] atorvastati 2021- No 80mg QD Take [address] [facility] (LIPITOR) 01-11- by mouth Kathy es 80 MG 16:36: 00:00 daily. Medical tablet 28 :00 [place] sulfamethox No 1{tbl} Q.5D Take [address] azole-trime 01-11 tablet by Annita kemax thoprim 16:36: 00:00 mouth 2 Medica l (BACTRIM 28 :00 (two) Center ) 800-160 times mg per daily. tablet atorvastati No 80mg QD Take [address] [facility] (LIPITOR) 01-11-20 by mouth Kathy es 40 MG 16:36: 00:00 daily . Medical tablet 26 :00 [place] atorvastati No 80mg QD Take [address] [facility] n (LIPITOR) 01-11-20 by mouth Kathy es 40 MG 16:36: 00:00 daily . Medical tablet 26 :00 [place] atorvastati No 80mg QD Take [address] [facility] n (LIPITOR) 01-11-20 by mouth Kathy es 40 MG 16:36: 00:00 daily . Medical tablet 26 :00 [place] atorvastati 2021- No 80mg QD Take [address] [facility] (LIPITOR) 01-11-20 by mouth Kathy es 40 MG 16:36: 00:00 daily . Medical tablet 26 :00 [place] atorvastati No 80mg QD Take [address] [facility] (LIPITOR) 01-11-20 by mouth Kathy es 40 MG 16:36: 00:00 daily . Medical tablet 26 :00 [place] atorvastati 2021- No 80mg QD Take [address] [facility] (LIPITOR) 01-11-20 by mouth Kathy es 40 MG 16:36: 00:00 daily . Medical tablet 26 :00 [place] atorvastati 2021- No 80mg QD Take [address] [facility] (LIPITOR) 01-11-20 by mouth Kathy es 40 MG 16:36: 00:00 daily . Medical tablet 26 :00 [place] atorvastati 2021- No 80mg QD Take [address] [facility] (LIPITOR) 01-11-20 by mouth Kathy es 40 MG 16:36: 00:00 daily . Medical tablet 26 :00 [place] atorvastati 2021- No 80mg QD Take [address] [facility] (LIPITOR) 01-11-20 by mouth Kathy es 40 MG 16:36: 00:00 daily . Medical tablet 26 :00 [place] atorvastati 2021- No 80mg QD Take [address] [facility] (LIPITOR) 01-11-20 by mouth Kathy es 40 MG 16:36: 00:00 daily . Medical tablet 26 :00 [place] atorvastati 2021- No 80mg QD Take [address] [facility] (LIPITOR) 01-11-20 by mouth Kathy es 40 MG 16:36: 00:00 daily . Medical tablet 26 :00 [place] atorvastati 2021- No 80mg QD Take [address] [facility] (LIPITOR) 01-11-20 by mouth Kathy es 40 MG 16:36: 00:00 daily . Medical tablet 26 :00 [place] atorvastati Yes 80mg QD Take [address] [facility] (LIPITOR) 7-25 tablets [facility] 40 MG 00:00: (80 mg Medical tablet 00 total) by Center mouth daily. apixaban 2-0 Yes 5mg Q.5D Take [address] [facility] (ELIQUIS) 5 7-25 tablet (5 Kathy es mg Tab 00:00: mg total) Medica l tablet 00 by mouth 2 Center (two) times daily. atorvastati 2021-0 Yes 80mg QD Take [address] [facility] (LIPITOR) 7-25 tablets [facility] 40 MG 00:00: (80 mg Medical tablet 00 total) by Center mouth daily. apixaban 2022-0 Yes 5mg Q.5D Take [address] [facility] (ELIQUIS) 5 7-25 tablet (5 Kathy es mg Tab 00:00: mg total) Medica l tablet 00 by mouth 2 Center (two) times daily. atorvastati 2-0 Yes 80mg QD Take [address] [facility] (LIPITOR) 7-25 tablets [facility] 40 MG 00:00: (80 mg Medical tablet 00 total) by Center mouth daily. apixaban 2022-0 Yes 5mg Q.5D Take [address] [facility] (ELIQUIS) 5 7-25 tablet (5 Kathy es mg Tab 00:00: mg total) Medica l tablet 00 by mouth 2 Center (two) times daily. atorvastati 2022-0 Yes 80mg QD Take [address] [facility] (LIPITOR) 7-25 tablets [facility] 40 MG 00:00: (80 mg Medical tablet 00 total) by Center mouth daily. apixaban 2022-0 Yes 5mg Q.5D Take [address] [facility] (ELIQUIS) 5 7-25 tablet (5 Kathy es mg Tab 00:00: mg total) Medica l tablet 00 by mouth 2 Center (two) times daily. atorvastati 2022-0 Yes 80mg QD Take [address] [facility] (LIPITOR) 7-25 tablets [facility] 40 MG 00:00: (80 mg Medical tablet 00 total) by Center mouth daily. apixaban 2022-0 Yes 5mg Q.5D Take [address] [facility] (ELIQUIS) 5 7-25 tablet (5 Kathy es mg Tab 00:00: mg total) Medica l tablet 00 by mouth 2 Center (two) times daily. atorvastati 2022-0 Yes 80mg QD Take [address] [facility] (LIPITOR) 7-25 tablets [facility] 40 MG 00:00: (80 mg Medical tablet 00 total) by Center mouth daily. apixaban 2022-0 Yes 5mg Q.5D Take [address] [facility] (ELIQUIS) 5 7-25 tablet (5 Kathy es mg Tab 00:00: mg total) Medica l tablet 00 by mouth 2 Center (two) times daily. atorvastati 2022-0 Yes 80mg QD Take [address] [facility] (LIPITOR) 7-25 tablets [facility] 40 MG 00:00: (80 mg Medical tablet 00 total) by Center mouth daily. apixaban 2022-0 Yes 5mg Q.5D Take [address] [facility] (ELIQUIS) 5 7-25 tablet (5 Kathy es mg Tab 00:00: mg total) Medica l tablet 00 by mouth 2 Center (two) times daily. atorvastati 2022-0 Yes 80mg QD Take [address] [facility] (LIPITOR) 7-25 tablets [facility] 40 MG 00:00: (80 mg Medical tablet 00 total) by Center mouth daily. apixaban 2022-0 Yes 5mg Q.5D Take [address] [facility] (ELIQUIS) 5 7-25 tablet (5 Kathy es mg Tab 00:00: mg total) Medica l tablet 00 by mouth 2 Center (two) times daily. atorvastati 2022-0 Yes 80mg QD Take [address] [facility] (LIPITOR) 7-25 tablets [facility] 40 MG 00:00: (80 mg Medical tablet 00 total) by Center mouth daily. apixaban 2022-0 Yes 5mg Q.5D Take [address] [facility] (ELIQUIS) 5 7-25 tablet (5 Kathy es mg Tab 00:00: mg total) Medica l tablet 00 by mouth 2 Center (two) times daily. atorvastati 2022-0 Yes 80mg QD Take [address] [facility] (LIPITOR) 7-25 tablets [facility] 40 MG 00:00: (80 mg Medical tablet 00 total) by Center mouth daily. apixaban 2022-0 Yes 5mg Q.5D Take [address] [facility] (ELIQUIS) 5 7-25 tablet (5 Kathy es mg Tab 00:00: mg total) Medica l tablet 00 by mouth 2 Center (two) times daily. atorvastati 2022-0 Yes 80mg QD Take [address] [facility] (LIPITOR) 7-25 tablets [facility] 40 MG 00:00: (80 mg Medical tablet 00 total) by Center mouth daily. apixaban 2022-0 Yes 5mg Q.5D Take [address] [facility] (ELIQUIS) 5 7-25 tablet (5 Kathy es mg Tab 00:00: mg total) Medica l tablet 00 by mouth 2 Center (two) times daily. atorvastati 2022-0 Yes 80mg QD Take [address] [facility] (LIPITOR) 7-25 tablets [facility] 40 MG 00:00: (80 mg Medical tablet 00 total) by Center mouth daily. apixaban 2022-0 Yes 5mg Q.5D Take [address] [facility] (ELIQUIS) 5 7-25 tablet (5 Kathy es mg Tab 00:00: mg total) Medica l tablet 00 by mouth 2 Center (two) times daily. HYDROcodone 2022-0 2022- No 1{tbl} Take [address] -acetaminop 7-25 08-04 tablet by Annita hodge (NORCO 00:00: 23:59 mouth Medic al 10-325) 00 :00 every 6 Center 10-325 mg (six) per tablet hours as needed for up to 10 days. Max Daily Amount: 4 tablets HYDROcodone 2021-0 2021- No 1{tbl} Take [address] -acetaminop 7-25 08-04 tablet by Annita hodge (NORCO 00:00: 23:59 mouth Medic al 10-325) 00 :00 every 6 Center 10-325 mg (six) per tablet hours as needed for up to 10 days. Max Daily Amount: 4 tablets HYDROcodone 2021-0 2021- No 1{tbl} Take [address] -acetaminop 7-25 08-04 tablet by Annita hodge (NORCO 00:00: 23:59 mouth Medic al 10-325) 00 :00 every 6 Center 10-325 mg (six) per tablet hours as needed for up to 10 days. Max Daily Amount: 4 tablets HYDROcodone 2021-2021- No 1{tbl} Take [address] -acetaminop 7-25 08-04 tablet by Annita hodge (NORCO 00:00: 23:59 mouth Medic al 10-325) 00 :00 every 6 Center 10-325 mg (six) per tablet hours as needed for up to 10 days. Max Daily Amount: 4 tablets HYDROcodone 2021-2021- No 1{tbl} Take [address] -acetaminop 7-25 08-04 tablet by Annita hodge (NORCO 00:00: 23:59 mouth Medic al 10-325) 00 :00 every 6 Center 10-325 mg (six) per tablet hours as needed for up to 10 days. Max Daily Amount: 4 tablets HYDROcodone 2021-0 2021- No 1{tbl} Take [address] -acetaminop 7-25 08-04 tablet by Annita hodge (NORCO 00:00: 23:59 mouth Medic al 10-325) 00 :00 every 6 Center 10-325 mg (six) per tablet hours as needed for up to 10 days. Max Daily Amount: 4 tablets HYDROcodone 2021-0 2021- No 1{tbl} Take [address] -acetaminop 7-25 08-04 tablet by Annita hodge (NORCO 00:00: 23:59 mouth Medic al 10-325) 00 :00 every 6 Center 10-325 mg (six) per tablet hours as needed for up to 10 days. Max Daily Amount: 4 tablets HYDROcodone 2021-2021- No 1{tbl} Take [address] -acetaminop 7-25 08-04 tablet by Annita hodge (NORCO 00:00: 23:59 mouth Medic al 10-325) 00 :00 every 6 Center 10-325 mg (six) per tablet hours as needed for up to 10 days. Max Daily Amount: 4 tablets HYDROcodone 2021-0 2021- No 1{tbl} Take [address] -acetaminop 7-25 08-04 tablet by Annita hodge (NORCO 00:00: 23:59 mouth Medic al 10-325) 00 :00 every 6 Center 10-325 mg (six) per tablet hours as needed for up to 10 days. Max Daily Amount: 4 tablets HYDROcodone 2021-2021- No 1{tbl} Take [address] -acetaminop 7-25 08-04 tablet by Annita hodge (NORCO 00:00: 23:59 mouth Medic al 10-325) 00 :00 every 6 Center 10-325 mg (six) per tablet hours as needed for up to 10 days. Max Daily Amount: 4 tablets HYDROcodone 2021-2021- No 1{tbl} Take [address] -acetaminop 7-25 08-04 tablet by Annita hodge (NORWA 00:00: 23:59 mouth Medic al 10-325) 00 :00 every 6 Center 10-325 mg (six) per tablet hours as needed for up to 10 days. Max Daily Amount: 4 tablets HYDROcodone 2021-0 2021- No 1{tbl} Take [address] -acetaminop 7-25 08-04 tablet by Annita hodge (NORCO 00:00: 23:59 mouth Medic al 10-325) 00 :00 every 6 Center 10-325 mg (six) per tablet hours as needed for up to 10 days. Max Daily Amount: 4 tablets ETHAMBUTOL Yes 300mg Take 300 [facility] HCL OR 7-20 mg by [facility] 11:22: mouth 3 of 38 times Medicin daily. e Indication s: Is NOT TAKING YET ,,,will start 11/29/17 RifAMPin 0 Yes 400mg Take 400 [facility] (RIFADIN 7-20 mg by College OR) 11:22: mouth two of 38 times Medicin daily. e azithromyci 0 Yes 500mg Take 500 [facility] 7-20 mg by [place] (ZITHROMAX) 11:22: mouth of 500 MG 38 daily. Medicin tablet e albuterol 0 Yes 2{puff} 2 Puffs by [facility] 108 (90 7-20 Inhalation [facility]) 11:22: route as of mcg/act 38 needed. Medicin inhaler e Aspirin 81 0 Yes 81mg Take 81 mg [facility] MG tablet 7-20 by mouth Colleg e 11:22: daily. of 38 Medicin e mupirocin 0 Yes [facility] (BACTROBAN) 12-30 [place] 2 % 00:00: of ointment 00 Medicin e sulfamethox 0 Yes [facility] azole-trime 12-30 [place] thoprim 00:00: of (BACTRIM 00 Medicin DS, SEPTRA e DS) 800-160 MG per tablet mupirocin 0 2021- No [facility] (BACTROBAN) 12-30 [place] 2 % 00:00: 00:00 of ointment 00 :00 Medicin e sulfamethox 2021-0 2021- No Akiralo r azole-trime 12-30 [place] thoprim 00:00: 00:00 of (BACTRIM 00 :00 Medicin DS, SEPTRA e DS) 800-160 MG per tablet ENTRESTO 2021-0 Yes [facility] 24-26 MG 6-25 College TABS 00:00: of 00 Medicin e LINZESS 290 2021-0 Yes [facility] CAPS - [place] 00:00: of 00 Medicin e ENTRESTO 2021-0 Yes two times [facility] 24-26 MG 6-25 daily. College TABS 00:00: of 00 Medicin e LINZESS 290 2021-0 Yes [facility] - [place] 00:00: of 00 Medicin e ENTRESTO 2021-0 Yes two times [facility] 24-26 MG 6-25 daily. College TABS 00:00: of 00 Medicin e LINZESS 290 2021-0 Yes [facility] CAPS 6-25 College 00:00: of 00 Medicin e ENTRESTO 2021-0 Yes two times [facility] 24-26 MG 6-25 daily. College TABS 00:00: of 00 Medicin e LINZESS 290 2021-0 Yes [facility] CAPS 6-25 College 00:00: of 00 Medicin e ENTRESTO 2021-0 Yes two times [facility] 24-26 MG 6-25 daily. College TABS 00:00: of 00 Medicin e LINZESS 290 2021-0 Yes [facility] CAPS 6-25 College 00:00: of 00 Medicin e ENTRESTO 2021-0 Yes two times [facility] 24-26 MG 6-25 daily. College TABS 00:00: of 00 Medicin e LINZESS 290 2021-0 Yes [facility] CAPS 6-25 College 00:00: of 00 Medicin e ENTRESTO 2021-0 Yes two times [facility] 24-26 MG 6-25 daily. College TABS 00:00: of 00 Medicin e LINZESS 290 2021-0 Yes [facility] CAPS 6-25 [place] 00:00: of 00 Medicin e clindamycin 2021-0 Yes [facility] (CLEOCIN) 6-18 [facility] 300 MG 00:00: of capsule 00 Medicin e clindamycin 2021-0 2021- No Akira r (CLEOCIN) 6-18 08-17 [facility] 300 MG 00:00: 00:00 of capsule 00 :00 Medicin e ETHAMBUTOL 2021-0 Yes 300mg Take 300 [facility] HCL OR 6-08 mg by [facility] 11:20: mouth 3 of 54 times Medicin daily. e Indication s: Is NOT TAKING YET ,,,will start 11/29/17 RifAMPin 2021-0 Yes 400mg Take 400 [facility] (RIFADIN 6-08 mg by [facility] OR) 11:20: mouth two of 54 times Medicin daily. e azithromyci 2021-0 Yes 500mg Take 500 [facility] 6-08 mg by [facility] (ZITHROMAX) 11:20: mouth of 500 MG 54 daily. Medicin tablet e albuterol Yes 2{puff} 2 Puffs by [facility] 108 (90 6-08 [facility] [employer] [facility]) 11:20: route as of mcg/act 54 needed. Medicin inhaler e Aspirin 81 0 Yes 81mg Take 81 mg [facility] MG tablet 6-08 by mouth Colleg e 11:20: daily. of 54 Medicin e RYBELSUS 14 Yes 14mg Take 14 mg [facility] MG TABS 5-31 by mouth College 00:00: daily. of 00 Medicin e RYBELSUS 14 Yes 14mg Take 14 mg [facility] MG TABS 5-31 by mouth College 00:00: daily. of 00 Medicin e RYBELSUS 14 Yes 14mg Take 14 mg [facility] MG TABS 5-31 by mouth College 00:00: daily. of 00 Medicin e RYBELSUS 14 Yes 14mg Take 14 mg [facility] MG TABS 5-31 by mouth [facility] 00:00: daily. of 00 Medicin e RYBELSUS 14 Yes 14mg Take 14 mg [facility] MG TABS 5-31 by mouth College 00:00: daily. of 00 Medicin e RYBELSUS 14 0 Yes 14mg Take 14 mg [facility] MG TABS 5-31 by mouth [facility] 00:00: daily. of 00 Medicin e RYBELSUS 14 0 Yes 14mg Take 14 mg [facility] MG TABS 5-31 by mouth College 00:00: daily. of 00 Medicin e RYBELSUS 14 Yes 14mg Take 14 mg [facility] MG TABS 5-31 by mouth College 00:00: daily. of 00 Medicin e ETHAMBUTOL Yes 300mg Take 300 [facility] HCL OR 3-09 mg by [facility] 14:55: mouth 3 of 06 times Medicin daily. e Indication s: Is NOT TAKING YET ,,,will start 11/29/17 RifAMPin Yes 400mg Take 400 [facility] (RIFADIN 3-09 mg by College OR) 14:55: mouth two of 06 times Medicin daily. e azithromyci Yes 500mg Take 500 [facility] 3-09 mg by [facility] (ZITHROMAX) 14:55: mouth of 500 MG 06 daily. Medicin tablet e albuterol 2021-0 Yes 2{puff} 2 Puffs by [facility] 108 (90 3-09 [facility]ation [facility] [employer]) 14:55: route as of mcg/act 06 needed. Medicin inhaler e Aspirin 81 2021-0 Yes 81mg Take 81 mg [facility] MG tablet 3-09 by mouth Colleg e 14:55: daily. of 06 Medicin e ETHAMBUTOL 0 Yes 300mg Take 300 [facility] HCL OR 2-09 mg by [place] 10:05: mouth 3 of 31 times Medicin daily. e Indication s: Is NOT TAKING YET ,,,will start 11/29/17 RifAMPin 0 Yes 400mg Take 400 [facility] (RIFADIN 2-09 mg by [place] OR) 10:05: mouth two of 31 times Medicin daily. e azithromyci 0 Yes 500mg Take 500 [facility] 2-09 mg by [place] (ZITHROMAX) 10:05: mouth of 500 MG 31 daily. Medicin tablet e albuterol 0 Yes 2{puff} 2 Puffs by [facility] 108 (90 2-09 [facility]ation [facility]) 10:05: route as of mcg/act 31 needed. Medicin inhaler e Aspirin 81 2021-0 Yes 81mg Take 81 mg [facility] MG tablet 2-09 by mouth Colleg e 10:05: daily. of 31 Medicin e sacubitriL- 2021-0 2021- No 1{tbl} Q.5D Take [address] valsartan 07-21 tablet by Sohail santana (AddFleetsto) 11:11: 00:00 mouth 2 Med ical 49-51 mg 40 :00 (two) Center Tab times daily. sacubitriL- 2021-0 2021- No 1{tbl} Q.5D Take [address] valsartan 2-07-21 tablet by Sohail santana (AddFleetsto) 11:11: 00:00 mouth 2 Med ical 49-51 mg 40 :00 (two) Center Tab times daily. sacubitriL- 2021-0 2021- No 1{tbl} Q.5D Take [address] valsartan 2-06 21- tablet by Sohail santana (Sanswire) 11:11: 00:00 mouth 2 Med ical 49-51 mg 40 :00 (two) Center Tab times daily. sacubitriL- 2021- No 1{tbl} Q.5D Take [address] valsartan 2-07-21 tablet by Sohail santana (Sanswire) 11:11: 00:00 mouth 2 Med ical 49-51 mg 40 :00 (two) Center Tab times daily. sacubitriL- 2021- No 1{tbl} Q.5D Take [address] valsartan 2-07-21 tablet by Sohail santana (Sanswire) 11:11: 00:00 mouth 2 Med ical 49-51 mg 40 :00 (two) Center Tab times daily. sacubitriL- 2021- No 1{tbl} Q.5D Take [address] valsartan 207-21 tablet by Sohail santana (Sanswire) 11:11: 00:00 mouth 2 Med ical 49-51 mg 40 :00 (two) Center Tab times daily. sacubitriL- 2021- No 1{tbl} Q.5D Take [address] valsartan 07-21 tablet by Sohail santana (Sanswire) 11:11: 00:00 mouth 2 Med ical 49-51 mg 40 :00 (two) Center Tab times daily. HYDROcodone 2021- No 1{tbl} Take [address] -acetaminop 2-07-31 tablet by Annita hodge (NORCO 00:00: 23:59 mouth Medic al 5-325) 00 :00 every 6 Center 5-325 mg (six) per tablet hours as needed for up to 10 days. Max Daily Amount: 4 tablets HYDROcodone 2021- No 1{tbl} Take [address] -acetaminop 2-06 21- tablet by Annita hodge (NORCO 00:00: 23:59 mouth Medic al 5-325) 00 :00 every 6 Center 5-325 mg (six) per tablet hours as needed for up to 10 days. Max Daily Amount: 4 tablets HYDROcodone 2021-2021- No 1{tbl} Take [address] -acetaminop 2-06 21-11 tablet by Annita hodge (NORCO 00:00: 23:59 mouth Medic al 5-325) 00 :00 every 6 Center 5-325 mg (six) per tablet hours as needed for up to 10 days. Max Daily Amount: 4 tablets HYDROcodone 2021-2021- No 1{tbl} Take [address] -acetaminop 2-06 21-11 tablet by Annita hodge (NORCO 00:00: 23:59 mouth Medic al 5-325) 00 :00 every 6 Center 5-325 mg (six) per tablet hours as needed for up to 10 days. Max Daily Amount: 4 tablets HYDROcodone 2021-2021- No 1{tbl} Take [address] -acetaminop 2-06 21-11 tablet by Annita hodge (NORCO 00:00: 23:59 mouth Medic al 5-325) 00 :00 every 6 Center 5-325 mg (six) per tablet hours as needed for up to 10 days. Max Daily Amount: 4 tablets HYDROcodone 2021-2021- No 1{tbl} Take [address] -acetaminop 2-06 21-11 tablet by Annita hodge (NORCO 00:00: 23:59 mouth Medic al 5-325) 00 :00 every 6 Center 5-325 mg (six) per tablet hours as needed for up to 10 days. Max Daily Amount: 4 tablets HYDROcodone 2021-2021- No 1{tbl} Take [address] -acetaminop 2-06 21-11 tablet by Annita hodge (NORCO 00:00: 23:59 mouth Medic al 5-325) 00 :00 every 6 Center 5-325 mg (six) per tablet hours as needed for up to 10 days. Max Daily Amount: 4 tablets HYDROcodone 2021-2021- No 1{tbl} Take [address] -acetaminop 2-01 -11 tablet by Annita hodge (NORCO 00:00: 23:59 mouth Medic al 5-325) 00 :00 every 6 Center 5-325 mg (six) per tablet hours as needed for up to 10 days. Max Daily Amount: 4 tablets HYDROcodone 2021- No 1{tbl} Take [address] -acetaminop 2-11 tablet by Annita hodge (NORCO 00:00: 23:59 mouth Medic al 5-325) 00 :00 every 6 Center 5-325 mg (six) per tablet hours as needed for up to 10 days. Max Daily Amount: 4 tablets ETHAMBUTOL 2020-06 Yes 300mg Take 300 [facility] HCL OR 2-15 mg by [facility] 15:17: mouth 3 of 46 times Medicin daily. e Indication s: Is NOT TAKING YET ,,,will start 11/29/17 RifAMPin 2020-06 Yes 400mg Take 400 [facility] (RIFADIN 2-15 mg by [place] OR) 15:17: mouth two of 46 times Medicin daily. e azithromyci 2020-06 Yes 500mg Take 500 [facility] 2-15 mg by [place] (ZITHROMAX) 15:17: mouth of 500 MG 46 daily. Medicin tablet e albuterol 2020-06 Yes 2{puff} 2 Puffs by [facility] 108 (90 2-15 [facility]ation [facility]) 15:17: route as of mcg/act 46 needed. Medicin inhaler e Aspirin 81 2020-06 Yes 81mg Take 81 mg [facility] MG tablet 2-15 by mouth Colleg e 15:17: daily. of 46 Medicin e ENTRESTO 2020-06 Yes 24mg Take 24 mg [place] [facility] 49-51 MG 0-19 by mouth [place] TABS 00:00: two times of 00 daily. Medicin e Prasugrel 2020-06 Yes 10mg Take 10 mg [facility] HCl 10 MG 0-19 by mouth [facility] TABS 00:00: daily. of 00 Medicin e ENTRESTO 2020-06 Yes 24mg Take 24 mg [place] [facility] 49-51 MG 0-19 by mouth College TABS 00:00: two times of 00 daily. Medicin e Prasugrel 2020-06 Yes 10mg Take 10 mg [facility] HCl 10 MG 0-19 by mouth [facility] TABS 00:00: daily. of 00 Medicin e ENTRESTO 2020-06 Yes 24mg Take 24 mg [place] 49-51 MG 0-19 by mouth College TABS 00:00: two times of 00 daily. Medicin e Prasugrel 2020-06 Yes 10mg Take 10 mg [facility] HCl 10 MG 0-19 by mouth [facility] TABS 00:00: daily. of Medicin e ENTRESTO 2020-06 Yes 24mg Take 24 mg [place] [facility] 49-51 MG 0-19 by mouth College TABS 00:00: two times of 00 daily. Medicin e Prasugrel 2020-06 Yes 10mg Take 10 mg [facility] HCl 10 MG 0-19 by mouth [facility] e TABS 00:00: daily. of Medicin e Prasugrel 2020-06 Yes 10mg Take 10 mg [facility] HCl 10 MG 0-19 by mouth [facility] e TABS 00:00: daily. of Medicin e Prasugrel 2020-06 Yes 10mg Take 10 mg [facility] HCl 10 MG 0-19 by mouth [facility] TABS 00:00: daily. of Medicin e Prasugrel 2020-06 Yes 10mg Take 10 mg [facility] HCl 10 MG 0-19 by mouth [facility] TABS 00:00: daily. of Medicin e Prasugrel 2020-06 Yes 10mg Take 10 mg [facility] HCl 10 MG 0-19 by mouth [facility] TABS 00:00: daily. of Medicin e Prasugrel 2020-06 Yes 10mg Take 10 mg [facility] HCl 10 MG 0-19 by mouth [facility] TABS 00:00: daily. of Medicin e Prasugrel 2020-06 Yes 10mg Take 10 mg [facility] HCl 10 MG 0-19 by mouth [facility] TABS 00:00: daily. of Medicin e Prasugrel 2020-06 Yes 10mg Take 10 mg [facility] HCl 10 MG 0-19 by mouth [facility] TABS 00:00: daily. of Medicin e ENTRESTO 2020-062- No 24mg Take 24 mg [facility] 49-51 MG 0-19 07-20 by mouth [facility] e TABS 00:00: 00:00 two times of 00 :00 daily. Medicin e NOVOLIN R Yes 20U Inject 20 [place] [facility] 100 UNIT/ML 7-27 Units into [facility] l[facility] injection 00:00: the skin 3 of 00 times Medicin daily e (before meals). NOVOLIN R 202-0 Yes 20U Inject 20 [place] [facility] 100 UNIT/ML 7-27 Units into Co llege injection 00:00: the skin 3 of 00 times Medicin daily e (before meals). NOVOLIN R 202-0 Yes 20U Inject 20 [place] [facility] 100 UNIT/ML 7-27 Units into Co llege injection 00:00: the skin 3 of 00 times Medicin daily e (before meals). NOVOLIN R 202-0 Yes 20U Inject 20 [place] [facility] 100 UNIT/ML 7-27 Units into Co llege injection 00:00: the skin 3 of 00 times Medicin daily e (before meals). NOVOLIN R 2020-0 2021- No 20U Inject 20 [facility] 100 UNIT/ML 7-27 07-20 Units into C ollege injection 00:00: 00:00 the skin 3 o f 00 :00 times Medicin daily e (before meals). pantoprazol 2021- [facility] (PROTONIX[facility]:00: 00:00 Medica l 40 MG 00 :00 Center tablet pantoprazol 2021- No [facility] (PROTONIX) 00:00: 00:00 Medica l 40 MG 00 :00 Center tablet pantoprazol 2021- No [facility] (PROTONIX) 00:00: 00:00 Medica l 40 MG 00 :00 Center tablet pantoprazol 2021- No [facility] (PROTONIX) 00:00: 00:00 Medica l 40 MG 00 :00 Center tablet pantoprazol 2021- No [facility] (PROTONIX) 00:00: 00:00 Medica l 40 MG 00 :00 Center tablet pantoprazol 2021- No [facility] (PROTONIX) 00:00: 00:00 Medica l 40 MG 00 :00 [facility] pant[facility]ol 2021- [facility] ([facility]) 00:00: 00:00 [facility] 40 MG 00 :00 [facility]ol 2021- [facility] ([facility]) 00:00: 00:00 [facility] 40 MG 00 :00 [facility] tablet pant[facility]ol 0 2021- [facility] ([facility]) 00:00: 00:00 [facility] 40 MG 00 :00 [facility] tablet gabapentin 2020-0 Yes 900mg QD Take [address] (NEURONTIN) 3-22 [facility] by [facility] 300 MG 00:00: mouth Medical capsule 00 nightly . [place] furosemide 0 Yes 40mg QD Take [address] (LASIX) 40 3-22 by [facility] tablet 00:00: daily . Medic al [place] gabapentin 2020-0 Yes 900mg QD Take [address] (NEURONTIN) 3-22 [facility] by [facility] MG 00:00: mouth Medical capsule 00 nightly . [place] furosemide 2020-0 Yes 40mg QD Take [address] [facility] (LASIX) 40 3-22 [facility] tablet 00:00: daily . Medic al [place] gabapentin 2020-0 Yes 900mg QD Take [address] (NEURONTIN) 3-22 [facility] 300 MG 00:00: mouth Medical capsule 00 nightly . [place] furosemide 2020-0 Yes 40mg QD Take [address] (LASIX) 40 3-22 [facility] tablet 00:00: daily . Medic al [place] gabapentin 2020-0 Yes 900mg QD Take [address] (NEURONTIN) 3-22 [facility] by [facility] 300 MG 00:00: mouth Medical capsule 00 nightly . [place] furosemide 2020-0 Yes 40mg QD Take [address] (LASIX) 40 3-22 [facility] tablet 00:00: daily . Medic al [place] gabapentin 2020-0 Yes 900mg QD Take [address] (NEURONTIN) 3-22 [facility] by [facility] 300 MG 00:00: mouth Medical capsule 00 nightly . [place] furosemide 2020-0 Yes 40mg QD Take [address] (LASIX) 40 3-22 [facility] tablet 00:00: daily . Medic al [place] gabapentin 2020-0 Yes 900mg QD Take [address] (NEURONTIN) 3-22 [facility] 300 MG 00:00: mouth Medical capsule 00 nightly . [facility] furosemide 2020-0 Yes 40mg QD Take [address] (LASIX) 40 3-22 by [facility] tablet 00:00: daily . Medic al 00 [place] gabapentin 2020-0 Yes 900mg QD Take [address] (NEURONTIN) 3-22 [facility] 300 MG 00:00: mouth Medical capsule 00 nightly . [place] furosemide 2020-0 Yes 40mg QD Take [address] (LASIX) 40 3-22 by [facility] tablet 00:00: daily . Medic al [place] gabapentin 2020-0 Yes 900mg QD Take [address] (NEURONTIN) 3-22 [facility] 300 MG 00:00: mouth Medical capsule 00 nightly . [place] furosemide 2020-0 Yes 40mg QD Take [address] (LASIX) 40 3-22 by [facility] tablet 00:00: daily . Medic al [place] gabapentin 2020-0 Yes 900mg QD Take [address] (NEURONTIN) 3-22 [facility] 300 MG 00:00: mouth Medical capsule 00 nightly . [place] furosemide 2020-0 Yes 40mg QD Take [address] (LASIX) 40 3-22 by [facility] tablet 00:00: daily . Medic al [place] gabapentin 2020-0 Yes 900mg QD Take [address] (NEURONTIN) 3-22 [facility] by [facility] 300 MG 00:00: mouth Medical capsule 00 nightly . [place] furosemide 2020-0 Yes 40mg QD Take [address] (LASIX) 40 3-22 by [facility] tablet 00:00: daily . Medic al 00 [place] gabapentin 2020-0 Yes 900mg QD Take [address] (NEURONTIN) 3-22 [facility] 300 MG 00:00: mouth Medical capsule 00 nightly . [place] furosemide 1-0 Yes 40mg QD Take [address] (LASIX) 40 3-22 by [facility] tablet 00:00: daily . Medic al [place] gabapentin 1-0 Yes 900mg QD Take [address] (NEURONTIN) 3-22 [facility] by [facility] 300 MG 00:00: mouth Medical capsule 00 nightly . [facility] furosemide Yes 40mg QD Take [address] (LASIX) 40 3-22 by mouth [facility] tablet 00:00: daily . Medic al 00 Center albuterol Yes 2{puff} 2 Puffs by [facility] 108 (90 3-15 [facility]ation [facility] 21:44: route as of mcg/act 43 needed. Medicin inhaler e Aspirin 81 Yes 81mg Take 81 mg [facility] tablet 3-15 by mouth [facility] e 21:44: daily. of 43 Medicin e ETHAMBUTOL Yes 300mg Take 300 [facility] HCL OR 3-15 mg by [facility] 21:43: mouth 3 of 20 times Medicin daily. e Indication s: Is NOT TAKING YET ,,,will start 11/29/17 RifAMPin Yes 400mg Take 400 [facility] (RIFADIN 3-15 mg by [place]) 21:43: mouth two of 20 times Medicin daily. e azithromyci Yes 500mg Take 500 [facility] 3-15 mg by [place] (ZITHROMAX) 21:43: mouth of 500 MG 20 daily. Medicin tablet e amitriptyli Yes 50mg Take 50 mg [facility] (ELAVIL) 3-15 by mouth [facility] 50 MG 21:43: nightly. of tablet 20 Medicin e fluoxetine 2020- No 20mg Take 20 mg [facility] (PROZAC) 20 3-15 03-15 by mouth [facility] MG tablet 21:41: 00:00 daily. of 19 :00 Medicin e RifAMPin 0 Yes 400mg Take 400 [facility] (RIFADIN 1-13 mg by [place]) 19:28: mouth. of 08 Medicin e azithromyci 0 Yes 300mg Take 300 [facility] 1-13 mg by [place] (ZITHROMAX) 19:28: mouth of 250 MG 08 daily. Medicin tablet e fluoxetine Yes 20mg Take 20 mg [facility] (PROZAC) 20 1-13 by mouth [facility] MG tablet 19:28: daily. of 08 Medicin e amitriptyli 2021-0 Yes 50mg Take 50 mg [facility] ne (ELAVIL) 1-13 by mouth [facility] 50 MG 19:28: nightly. of tablet 08 Medicin e ETHAMBUTOL Yes Take by [facility] HCL OR 1-13 mouth. [place] 19:28: Indication of 08 s: Is NOT Medicin TAKING YET e ,,,will start 11/29/17 COMBJOSSIE 0 Yes 1[drp] Place 1 [facility] 0.2-0.5 % 1-11 Drop into [facility] ophthalmic 00:00: both eyes of solution 00 every 12 Medicin hours. e COMBIGAN 0 Yes 1[drp] Place 1 [facility] 0.2-0.5 % 1-11 Drop into [facility] ophthalmic 00:00: both eyes of solution 00 every 12 Medicin hours. e COMBIGAN 0 Yes 1[drp] Place 1 [facility] 0.2-0.5 % 1-11 Drop into [facility] ophthalmic 00:00: both eyes of solution 00 every 12 Medicin hours. e COMBIGAN 0 Yes 1[drp] Place 1 [facility] 0.2-0.5 % 1-11 Drop into [facility] ophthalmic 00:00: both eyes of solution 00 every 12 Medicin hours. e COMBIGAN 0 Yes 1[drp] Place 1 [facility] 0.2-0.5 % 1-11 Drop into [facility] ophthalmic 00:00: both eyes of solution 00 every 12 Medicin hours. e COMBIGAN 0 Yes 1[drp] Place 1 [facility] 0.2-0.5 % 1-11 Drop into [facility] ophthalmic 00:00: both eyes of solution 00 every 12 Medicin hours. e COMBIGAN 2020-0 Yes 1[drp] Place 1 [facility] 0.2-0.5 % 1-11 Drop into [facility] ophthalmic 00:00: both eyes of solution 00 every 12 Medicin hours. e COMBIGAN 2020-0 Yes 1[drp] Place 1 [facility] 0.2-0.5 % 1-11 Drop into [facility] ophthalmic 00:00: both eyes of solution 00 every 12 Medicin hours. e COMBIGAN 0 Yes 1[drp] Place 1 [facility] 0.2-0.5 % 1-11 Drop into [facility] ophthalmic 00:00: both eyes of solution 00 every 12 Medicin hours. e COMBIGAN 0 Yes 1[drp] Place 1 [facility] 0.2-0.5 % 1-11 Drop into [facility] ophthalmic 00:00: both eyes of solution 00 every 12 Medicin hours. e COMBIGAN 0 Yes 1[drp] Place 1 [facility] 0.2-0.5 % 1-11 Drop into [facility] ophthalmic 00:00: both eyes of solution 00 every 12 Medicin hours. e COMBIGAN 0 Yes 1[drp] Place 1 [facility] 0.2-0.5 % 1-11 Drop into [facility] ophthalmic 00:00: both eyes of solution 00 every 12 Medicin hours. e COMBIGAN 0 Yes 1[drp] Place 1 [facility] 0.2-0.5 % 1-11 Drop into [facility] ophthalmic 00:00: both eyes of solution 00 every 12 Medicin hours. e fluoxetine 2019-06 Yes 20mg Take 20 mg [facility] (PROZAC) 20 2-16 by mouth [facility] MG tablet 22:12: daily. of 58 Medicin e amitriptyli 2019-06 Yes 50mg Take 50 mg [facility] ne (ELAVIL) 2-16 by mouth [facility] 50 MG 22:12: nightly. of tablet 58 Medicin e fluoxetine 2019-06 Yes 20mg Take 20 mg [facility] (PROZAC) 20 2-16 by mouth [facility] MG tablet 22:12: daily. of 58 Medicin e amitriptyli 2019-06 Yes 50mg Take 50 mg [facility] (ELAVIL) 2-16 by mouth [facility] 50 MG 22:12: nightly. of tablet 58 Medicin e INSULIN 2019-06- No Inject [facility] ASPART SC 2-16 12-16 into the [facility]le ge 22:11: 00:00 skin. of 26 :00 Indication Medicin s: 35 e units bid INSULIN 2019-06 2020- No Inject [facility] ASPART SC 2-16 12-16 into the [facility]le [facility] 22:11: 00:00 skin. of 26 :00 Indication Medicin s: 35 e units bid ETHAMBUTOL 2019-06 Yes Take by [facility] HCL OR 2-16 mouth. College 22:11: Indication of 24 s: Is NOT Medicin TAKING YET e ,,,will start 11/29/17 RifAMPin 2019-06 Yes 400mg Take 400 [facility] (RIFADIN 2-16 mg by [facility] OR) 22:11: mouth. of 24 Medicin e azithromyci 2019-06 Yes 300mg Take 300 [facility] 2-16 mg by [place] (ZITHROMAX) 22:11: mouth of 250 MG 24 daily. Medicin tablet e ETHAMBUTOL 2019-06 Yes Take by [facility] HCL OR 2-16 mouth. [place] 22:11: Indication of 24 s: Is NOT Medicin TAKING YET e ,,,will start 11/29/17 RifAMPin 2019-06 Yes 400mg Take 400 [facility] (RIFADIN 2-16 mg by [place] OR) 22:11: mouth. of 24 Medicin e azithromyci 2019-06 Yes 300mg Take 300 [facility] 2-16 mg by [place] (ZITHROMAX) 22:11: mouth of 250 MG 24 daily. Medicin tablet e ASPIRIN 81 2019-06 2020- No Take by [place] [facility] OR 2-16 12-16 mouth. [place] 22:10: 00:00 of 40 :00 Medicin e ASPIRIN 81 2019-06 2020- No Take by [place] [facility] OR 2-16 12-16 mouth. [place] 22:10: 00:00 of 40 :00 Medicin e amlodipine- 2019-06 2020- No 20{tbl} Take 20 [facility] atorvastata 2-16 12-16 Tabs by [facility] 22:10: 00:00 mouth of (CADUET) 31 :00 daily. Medicin 10-20 MG e per tablet amlodipine- 2019-06 2020- No 20{tbl} Take 20 [facility] atorvastata 2-16 12-16 Tabs by [facility] 22:10: 00:00 mouth of (CADUET) 31 :00 daily. Medicin 10-20 MG e per tablet Potassium 2019-06 2020- No Take by [facility] 75 MG TABS 2-16 12-16 mouth. Colleg e 22:07: 00:00 of 47 :00 Medicin e Potassium 2019-06 2020- No Take by [facility] 75 MG TABS 2-16 12-16 mouth. Colleg e 22:07: 00:00 of 47 :00 Medicin e metoprolol 2020- 2020- No 25mg Take 25 mg [facility] (TOPROL-XL) 2-16 12-16 by mouth [facility] 25 MG XL 22:07: 00:00 daily. of tablet 44 :00 Medicin e metoprolol 2019- 2020- No 25mg Take 25 mg [facility] (TOPROL-XL) 2-16 12-16 by mouth [facility] 25 MG XL 22:07: 00:00 daily. of tablet 44 :00 Medicin e TRESIBA 2020-1 Yes [facility] FLEXTOUCH 2-14 College 200 UNIT/ML 00:00: of SOPN 00 Medicin e TRESIBA 2020-1 Yes 30U 30 Units [facility] FLEXTOUCH 2-14 daily. [facility] 200 UNIT/ML 00:00: of SOPN 00 Medicin e TRESIBA 2020-1 Yes 30U 30 Units [facility] FLEXTOUCH 2-14 daily. [facility] 200 UNIT/ML 00:00: of SOPN 00 Medicin e TRESIBA 2020-1 Yes 30U 30 Units [facility] FLEXTOUCH 2-14 daily. [facility] 200 UNIT/ML 00:00: of SOPN 00 Medicin e TRESIBA 2020-1 Yes 30U 30 Units [facility] FLEXTOUCH 2-14 daily. [facility] 200 UNIT/ML 00:00: of SOPN 00 Medicin e TRESIBA 2020-1 Yes 30U 30 Units [facility] FLEXTOUCH 2-14 daily. [facility] 200 UNIT/ML 00:00: of SOPN 00 Medicin e TRESIBA 2020-1 Yes 30U 30 Units [facility] FLEXTOUCH 2-14 daily. [facility] 200 UNIT/ML 00:00: of SOPN 00 Medicin e TRESIBA 2020-1 Yes 30U 30 Units [facility] FLEXTOUCH 2-14 daily. [facility] 200 UNIT/ML 00:00: of SOPN 00 Medicin e TRESIBA 2020-1 Yes [facility] FLEXTOUCH 2-14 [facility] 200 UNIT/ML 00:00: of SOPN 00 Medicin e TRESIBA 2020-1 Yes 30U 30 Units [facility] FLEXTOUCH 2-14 daily. [facility] 200 UNIT/ML 00:00: of SOPN 00 Medicin e TRESIBA 2020-1 Yes 30U 30 Units [facility] FLEXTOUCH 2-14 daily. [facility] 200 UNIT/ML 00:00: of SOPN 00 Medicin e TRESIBA 2020-1 Yes 30U 30 Units [facility] FLEXTOUCH 2-14 daily. [facility] 200 UNIT/ML 00:00: of SOPN 00 Medicin e TRESIBA 2020-1 Yes 30U 30 Units [facility] FLEXTOUCH 2-14 daily. [facility] 200 UNIT/ML 00:00: of SOPN 00 Medicin e TRESIBA 2020-1 Yes 30U 30 Units [facility] FLEXTOUCH 2-14 daily. [facility] 200 UNIT/ML 00:00: of SOPN 00 Medicin e TRESIBA 2020-1 Yes [facility] FLEXTOUCH 2-14 [facility] 200 UNIT/ML 00:00: of SOPN 00 Medicin e atorvastati 2020-1 Yes [facility] n (LIPITOR) 2-03 College 40 MG 00:00: of tablet 00 Medicin e atorvastati 2020- Yes 40mg Take 40 mg [facility] n (LIPITOR) 2-03 by mouth [facility] 40 MG 00:00: daily. of tablet 00 Medicin e atorvastati 2019-06 Yes 40mg Take 40 mg [facility] (LIPITOR) 2-03 by mouth [facility] 40 MG 00:00: daily. of tablet 00 Medicin e atorvastati 2019-06 Yes 40mg Take 40 mg [facility] (LIPITOR) 2-03 by mouth [facility] 40 MG 00:00: daily. of tablet 00 Medicin e atorvastati 2020- Yes 40mg Take 40 mg [facility] n (LIPITOR) 2-03 by mouth [facility] 40 MG 00:00: daily. of tablet 00 Medicin e atorvastati 2020- Yes 40mg Take 40 mg [facility] n (LIPITOR) 2-03 by mouth [facility] 40 MG 00:00: daily. of tablet 00 Medicin e atorvastati 2020- Yes 80mg Take 80 mg [facility] (LIPITOR) 2-03 by mouth [facility] 80 MG 00:00: daily. of tablet 00 Medicin e atorvastati 2020- Yes [facility] n (LIPITOR) 2-03 College 40 MG 00:00: of tablet 00 Medicin e atorvastati 2020- Yes 80mg Take 80 mg [facility] n (LIPITOR) 2-03 by mouth [facility] 80 MG 00:00: daily. of tablet 00 Medicin e atorvastati 2019- Yes 80mg Take 80 mg [facility] (LIPITOR) 2-03 by mouth [facility] 80 MG 00:00: daily. of tablet 00 Medicin e atorvastati 2019- Yes 80mg Take 80 mg [facility] (LIPITOR) 2-03 by mouth [facility] 80 MG 00:00: daily. of tablet 00 Medicin e atorvastati 2019-06 Yes 80mg Take 80 mg [facility] (LIPITOR) 2-03 by mouth [facility] 80 MG 00:00: daily. of tablet 00 Medicin e atorvastati 2019- Yes 80mg Take 80 mg [facility] (LIPITOR) 2-03 by mouth [facility] 80 MG 00:00: daily. of tablet 00 Medicin e atorvastati 2019-06 Yes 80mg Take 1 [facility] (LIPITOR) 2-03 Tablet by [facility] 80 MG 00:00: mouth of tablet 00 daily. Medicin e atorvastati 2019- Yes [facility] (LIPITOR) 2-03 [facility] 40 MG 00:00: of tablet 00 Medicin e ENTRESTO 2020-1 Yes [facility] 49-51 MG 2-02 [place] TABS 00:00: of 00 Medicin e TRELEGY 2020-1 Yes [facility] ELLIPTA 2- [place] 100-62.5-25 00:00: of MCG/INH 00 Medicin AEPB e ENTRESTO 2020-1 Yes two times [facility] 49-51 MG 2-02 daily. College TABS 00:00: of 00 Medicin e TRELEGY 2020-1 Yes daily. [facility] ELLIPTA 2-02 [place] 100-62.5-25 00:00: of MCG/INH 00 Medicin AEPB e TRELEGY 2020-1 Yes daily. [facility] ELLIPTA 2- [place] 100-62.5-25 00:00: of MCG/INH 00 Medicin AEPB e TRELEGY 2020-1 Yes daily. [facility] ELLIPTA 2-02 [place] 100-62.5-25 00:00: of MCG/INH 00 Medicin AEPB e TRELEGY 2020-1 Yes daily. [facility] ELLIPTA 2- [place] 100-62.5-25 00:00: of MCG/INH 00 Medicin AEPB e TRELEGY 2020-1 Yes daily. [address]5-25 00:00: of MCG/INH 00 Medicin AEPB e TRELEGY 2020-1 Yes daily. [address]5-25 00:00: of MCG/INH 00 Medicin AEPB e ENTRESTO 2020-1 Yes [facility] 49-51 MG 2- [place] TABS 00:00: of 00 Medicin e TRELEGY 2020-1 Yes daily. [address]5-25 00:00: of MCG/INH 00 Medicin AEPB e TRELEGY 2020-1 Yes [place] [id number]- 00:00: of MCG/INH 00 Medicin AEPB e TRELEGY 2020-1 Yes daily. [place] [id number]- 00:00: of MCG/INH 00 Medicin AEPB e TRELEGY 2020-1 Yes daily. [place] [id number]- 00:00: of MCG/INH 00 Medicin AEPB e TRELEGY 2020-1 Yes daily. [place] [id number]- 00:00: of MCG/INH 00 Medicin AEPB e TRELEGY 2020-1 Yes daily. [address]5- 00:00: of MCG/INH 00 Medicin AEPB e TRELEGY 2020-1 Yes daily. [place] [id number]- 00:00: of MCG/INH 00 Medicin AEPB e ENTRESTO 2020-1 Yes [facility] 49-51 MG 2- [place] TABS 00:00: of 00 Medicin e TRELEGY 2020-1 Yes [place] [id number]- 00:00: of MCG/INH 00 Medicin AEPB e COMBIGAN 2020-1 2020- No 1[drp] Place 1 [place] 0.2-0.5 % 2 12-16 Drop into [facility] ophthalmic 00:00: 00:00 both eyes o f solution 00 :00 every 12 Medicin hours. e COMBIGAN 2020-1 2020- No 1[drp] Place 1 [place] 0.2-0.5 % 07-21 1216 Drop into [facility] ophthalmic 00:00: 00:00 both eyes o f solution 00 :00 every 12 Medicin hours. e NOVOLOG 100 2019-1 Yes [facility] UNIT/ML 1-18 College injection 00:00: of 00 Medicin e NOVOLOG 100 2019-1 Yes 3 times [place] UNIT/ML 1-18 daily College injection 00:00: (before of 00 meals). Medicin e NOVOLOG 100 2019-1 Yes 3 times [place] UNIT/ML 1-18 daily College injection 00:00: (before of 00 meals). Medicin e NOVOLOG 100 2019-1 Yes 3 times [place] UNIT/ML 1-18 daily College injection 00:00: (before of 00 meals). Medicin e NOVOLOG 100 2019-1 Yes 3 times [place] UNIT/ML 1-18 daily College injection 00:00: (before of 00 meals). Medicin e NOVOLOG 100 2019-1 Yes 3 times [place] UNIT/ML 1-18 daily College injection 00:00: (before of 00 meals). Medicin e NOVOLOG 100 2019-1 Yes 3 times [place] UNIT/ML 1-18 daily College injection 00:00: (before of 00 meals). Medicin e NOVOLOG 100 2019-1 Yes 3 times [place] UNIT/ML 1-18 daily College injection 00:00: (before of 00 meals). Medicin e NOVOLOG 100 2019-1 Yes [facility] UNIT/ML 1-18 College injection 00:00: of 00 Medicin e NOVOLOG 100 2019-1 Yes 3 times [place] UNIT/ML 1-18 daily College injection 00:00: (before of 00 meals). Medicin e NOVOLOG 100 2019-1 Yes 3 times [place] UNIT/ML 1-18 daily College injection 00:00: (before of 00 meals). Medicin e NOVOLOG 100 2019-1 Yes 3 times [place] UNIT/ML 1-18 daily College injection 00:00: (before of 00 meals). Medicin e NOVOLOG 100 2019-1 Yes 3 times [place] UNIT/ML 1-18 daily College injection 00:00: (before of 00 meals). Medicin e NOVOLOG 100 2019-1 Yes 3 times [place] UNIT/ML 1-18 daily College injection 00:00: (before of 00 meals). Medicin e NOVOLOG 100 2020-1 Yes [facility] UNIT/ML 1-18 College injection 00:00: of 00 Medicin e pantoprazol 2020-1 Yes [facility] e 1-03 College (PROTONIX) 00:00: of 40 MG 00 Medicin tablet e pantoprazol 2019- Yes 40mg Take 40 mg [facility] e 1-03 by mouth College (PROTONIX) 00:00: daily. of 40 MG 00 Medicin tablet e pantoprazol 2019- Yes 40mg Take 40 mg [facility] e 1-03 by mouth [facility] (PROTONIX) 00:00: daily. of 40 MG 00 Medicin tablet e pantoprazol 2019- Yes 40mg Take 40 mg [facility] e 1-03 by mouth College (PROTONIX) 00:00: daily. of 40 MG 00 Medicin tablet e pantoprazol 2019-06 Yes 40mg Take 40 mg [facility] e 1-03 by mouth [facility] (PROTONIX) 00:00: daily. of 40 MG 00 Medicin tablet e pantoprazol 2019-06 Yes 40mg Take 40 mg [facility] e 1-03 by mouth College (PROTONIX) 00:00: daily. of 40 MG 00 Medicin tablet e pantoprazol 2019- Yes [facility] e 1-03 College (PROTONIX) 00:00: of 40 MG 00 Medicin tablet e pantoprazol 2019-1 Yes [facility] e 1-03 [facility] (PROTONIX) 00:00: of 40 MG 00 Medicin tablet e pantoprazol 2019-2021- No 40mg Take 40 mg [facility] e -03 07-20 by mouth College (PROTONIX) 00:00: 00:00 daily. of 40 MG 00 :00 Medicin tablet e gabapentin 2020-0 Yes [facility] (NEURONTIN) 9-23 [facility] 300 MG 00:00: of capsule 00 Medicin e furosemide 2020-0 Yes [facility] (LASIX) 80 9-23 College MG tablet 00:00: of 00 Medicin e gabapentin 2020-0 Yes 300mg Take 300 [facility] (NEURONTIN) 9-23 mg by [facility] 300 MG 00:00: mouth 3 of capsule 00 times Medicin daily. e furosemide 2020-0 Yes 80mg Take 80 mg [facility] (LASIX) 80 9-23 by mouth Colle ge MG tablet 00:00: daily. of 00 Medicin e gabapentin 2020-0 Yes 300mg Take 300 [facility] (NEURONTIN) 9-23 mg by [facility] 300 MG 00:00: mouth 3 of capsule 00 times Medicin daily. e furosemide 2020-0 Yes 80mg Take 80 mg [facility] (LASIX) 80 9-23 by mouth Colle ge MG tablet 00:00: daily. of 00 Medicin e gabapentin 2020-0 Yes 300mg Take 300 [facility] (NEURONTIN) 9-23 mg by [facility] 300 MG 00:00: mouth 3 of capsule 00 times Medicin daily. e furosemide 2020-0 Yes 80mg Take 80 mg [facility] (LASIX) 80 9-23 by mouth Colle ge MG tablet 00:00: daily. of 00 Medicin e gabapentin 2020-0 Yes 300mg Take 300 [facility] (NEURONTIN) 9-23 mg by [facility] 300 MG 00:00: mouth 3 of capsule 00 times Medicin daily. e furosemide 2020-0 Yes 80mg Take 80 mg [facility] (LASIX) 80 9-23 by mouth Colle ge MG tablet 00:00: daily. of 00 Medicin e gabapentin 2020-0 Yes 300mg Take 300 [facility] (NEURONTIN) 9-23 mg by [facility] 300 MG 00:00: mouth 3 of capsule 00 times Medicin daily. e furosemide 2020-0 Yes 80mg Take 80 mg [facility] (LASIX) 80 9-23 by mouth Colle ge MG tablet 00:00: daily. of 00 Medicin e gabapentin 2020-0 Yes 300mg Take 300 [facility] (NEURONTIN) 9-23 mg by [facility] 300 MG 00:00: mouth 3 of capsule 00 times Medicin daily. e furosemide 2020-0 Yes 80mg Take 80 mg [facility] (LASIX) 80 9-23 by mouth Colle ge MG tablet 00:00: daily. of 00 Medicin e gabapentin 2020-0 Yes [facility] (NEURONTIN) 9-23 [facility] 300 MG 00:00: of capsule 00 Medicin e furosemide 2020-0 Yes [facility] (LASIX) 80 9-23 College MG tablet 00:00: of 00 Medicin e furosemide 2020-0 Yes 80mg Take 80 mg [facility] (LASIX) 80 9-23 by mouth Colle ge MG tablet 00:00: daily. of 00 Medicin e furosemide 2020-0 Yes 80mg Take 80 mg [facility] (LASIX) 80 9-23 by mouth Colle ge MG tablet 00:00: daily. of 00 Medicin e furosemide 2020-0 Yes 80mg Take 80 mg [facility] (LASIX) 80 9-23 by mouth Colle ge MG tablet 00:00: daily. of 00 Medicin e furosemide 2020-0 Yes 80mg Take 80 mg [facility] (LASIX) 80 9-23 by mouth Colle [facility] MG tablet 00:00: daily. of 00 Medicin e furosemide 2020-0 Yes 80mg Take 80 mg [facility] (LASIX) 80 9-23 by mouth Colle ge MG tablet 00:00: daily. of 00 Medicin e furosemide 2020-0 Yes 80mg Take 1 [facility] (LASIX) 80 9-23 Tablet by [facility] MG tablet 00:00: mouth of 00 daily. Medicin e gabapentin 2020-0 Yes [facility] (NEURONTIN) 9-23 [facility] 300 MG 00:00: of capsule 00 Medicin e furosemide 2020-0 Yes [facility] (LASIX) 80 9-23 College MG tablet 00:00: of 00 Medicin e gabapentin 2020-0 2- No 300mg Take 300 [facility] (NEURONTIN) 9-23 08-17 mg by Colleg e 300 MG 00:00: 00:00 mouth 3 of capsule 00 :00 times Medicin daily. e pen needle, 2017-0 Yes To use [address] [facility] 31 5-21 day. [facility] 00:[facility]: [facility] 11/02" [facility] pen needle, 2016-0 Yes To use [address] [facility] diabetic 31 5-21 day. [facility] x 00:00: [facility] 11[facility]02" [facility] pen needle, 2016-0 Yes To use [address] [facility] diabetic 31 5-21 day. [facility] gauge x 00:00: [facility] 11/02" [facility] pen needle, 2017-0 Yes To use [address] [facility] diabetic 31 5-21 day. [facility] gauge x 00:00: Medical 11/02" [facility] pen needle, 2016-0 Yes To use [address] [facility] diabetic 31 5-21 day. [facility] gauge x 00:00: Medical 11/02" [facility] pen needle, 2017-0 Yes To use [address] [facility] diabetic 31 5-21 day. [facility] gauge x 00:00: Medical 11/02" [facility] pen needle, 2016-0 Yes To use [address] [facility] diabetic 31 5-21 day. [facility] gauge x 00:00: Medical 11/02" [facility] pen needle, 2016- Yes To use [address] [facility] diabetic 31 5-21 day. [facility] gauge x 00:00: Medical 11/02" [facility] pen needle, 2016- Yes To use [address] [facility] diabetic 31 5-21 day. [facility] gauge x 00:00: Medical 11/02" [facility] pen needle, Yes To use [address] [facility] diabetic 31 5-21 day. [facility] gauge x 00:00: Medical 11/02" [facility] pen needle, Yes To use [address] [facility] diabetic 31 5-21 day. [facility] gauge x 00:00: Medical 11/02" [facility] pen needle, Yes To use [address] [facility] diabetic 31 5-21 day. [facility] gauge x 00:00: Medical 11/02" [facility] metoprolol Yes TAKE ONE [facility] tartrate 9-15 TABLET BY ity of (LOPRESSOR) 00:00: MOUTH [place] 25 mg 00 TWICE Medical tablet DAILY Branch metoprolol Yes TAKE ONE [facility] tartrate 9-15 TABLET BY ity of (LOPRESSOR) 00:00: MOUTH [place] 25 mg 00 TWICE Medical tablet DAILY Branch HUM INSULIN 2013-06 Yes 10U inject 10 U nivers NPH/REG 0-22 Units ity of INSULIN HM 18:18: [place] (INSULIN 19 skin 2 Medical 70/30 SC) (two) Branch times daily with meals. HUM INSULIN 2013-06 Yes 10U inject 10 U nivers NPH/REG 0-22 Units ity of INSULIN HM 18:18: [place] the [place] (INSULIN 19 skin 2 Medical 70/30 SC) (two) Branch times daily with meals. enalapril 2013-06 Yes 5mg Take 1 Tab [facility] (VASOTEC) 5 0-22 by mouth 2 it y of mg tablet 00:00: (two) [place] 00 times Medical daily. Branch nitroglycer 2013-[address] 1 [facility] in 0-22 Tab under ity of (NITROSTAT) 00:00: the tongue [place] 0.4 mg 00 every 5 Medical sublingual (five) Branch tablet minutes as needed for Chest pain. enalapril 2013-06 Yes 5mg Take 1 Tab [facility] (VASOTEC) 5 0-22 by mouth 2 it y of mg tablet 00:00: (two) [place] 00 times Medical daily. Branch nitroglycer 2013-[address] 1 [facility] in 0-22 Tab under ity of (NITROSTAT) 00:00: the tongue [place] 0.4 mg 00 every 5 Medical sublingual (five) Branch tablet minutes as needed for Chest pain. lovastatin Yes 20mg Take 1 Tab U nivers (MEVACOR) 7-10 by mouth ity of 20 mg 00:00: at [place] tablet 00 bedtime. Medical Branch metFORMIN Yes 1000mg Take 1 Tab [facility] (GLUCOPHAGE 7-10 by mouth 2 it y of ) 1,000 mg 00:00: (two) [place] tablet 00 times Medical daily with Branch meals. insulin 2013- Yes 10U inject 10 Unive rs 70/30 7-10 Units ity of (NOVOLIN 00:[place] 70/30[place] 100 00 skin 2 Medical unit/mL (two) Branch (70-30) times injection daily before breakfast and dinner. spironolact Yes 25mg Take 1 Tab Univers one 7-10 by mouth ity of (SPIRONOLAC 00:[place] TONE[place] 25 mg 00 Medical tablet Branch lovastatin 0 Yes 20mg Take 1 Tab U nivers (MEVACOR) 7-10 by mouth ity of 20 mg 00:00: at [place] tablet 00 bedtime. Medical Branch metFORMIN Yes 1000mg Take 1 Tab Univers (GLUCOPHAGE 7-10 by mouth 2 it y of ) 1,000 mg 00:00: (two) [place] tablet 00 times Medical daily with Branch meals. insulin 2013-0 Yes 10U inject 10 Unive rs 70/30 7-10 Units ity of (NOVOLIN 00:[place] 70/30[place] 100 00 skin 2 Medical unit/mL (two) Branch (70-30) times injection daily before breakfast and dinner. spironolact 2013-0 Yes 25mg Take 1 Tab Univers one 7-10 by mouth ity of (SPIRONOLAC 00:[place] TONE[place] 25 mg 00 Medical tablet Branch Immunizations Ordered Filled Immunization Date Status Comments Sour e Immunization Name Name SARS-COV-2 COVID-19 2020-08-24 Completed Unive rsity of MODERNA VACCINE 00:00:00 [place] [facility] SARS-COV-2 COVID-19 2020-08-24 Completed Unive rsity of MODERNA VACCINE 00:00:00 [place] [facility] SARS-COV-2 COVID-19 2020-07-27 Completed Unive rsity of MODERNA VACCINE 00:00:00 [place] [facility] SARS-COV-2 COVID-19 2020-07-27 Completed Unive rsity of MODERNA VACCINE 00:00:00 [place] [facility] Vital Signs Vital Name Observation Time Observation Value Comments Source HEIGHT 2020-11-11 11:05:00 177.8 cm WEIGHT 2020-11-11 11:05:00 102.059 kg WEIGHT 2020-09-25 07:10:00 102.241 kg HEIGHT 2020-09-24 08:08:00 177.8 cm WEIGHT 2020-09-24 08:08:00 102.241 kg Systolic blood 2022-08-26 17:51:00 161 mm[Hg] [facility] pressure of Medicine Diastolic blood 2022-08-26 17:51:00 79 mm[Hg] [facility] pressure of Medicine Heart rate 2022-08-26 17:51:00 98 /min [facility] Body height 2022-08-26 17:51:00 177.8 cm [facility] Body weight 2022-08-26 17:51:00 90.719 kg [facility] BMI 2022-08-26 17:51:00 28.70 kg/m2 [facility] HEIGHT 2022-06-10 15:14:00 177.8 cm WEIGHT 2022-06-10 15:14:00 88.451 kg HEIGHT 2022-06-10 15:14:00 177.8 cm WEIGHT 2022-06-10 15:14:00 88.451 kg Systolic blood 2022-05-26 19:36:00 127 mm[Hg] [facility] pressure of Medicine Diastolic blood 2022-05-26 19:36:00 74 mm[Hg] [facility] pressure of Medicine Heart rate 2022-05-26 19:36:00 80 /min [facility] Medicine Body height 2022-05-26 19:36:00 177.8 cm [facility] of Medicine Body weight 2022-05-26 19:36:00 90.719 kg [facility] Medicine BMI 2022-05-26 19:36:00 28.70 kg/m2 [facility] HEIGHT 2022-05-03 05:57:00 177.8 cm WEIGHT 2022-05-03 05:57:00 90.719 kg HEIGHT 2022-05-03 05:57:00 177.8 cm WEIGHT 2022-05-03 05:57:00 90.719 kg Systolic blood 2022-03-31 15:22:00 147 mm[Hg] [facility] pressure of Medicine Diastolic blood 2022-03-31 15:22:00 83 mm[Hg] [facility] pressure of Medicine Heart rate 2022-03-31 15:22:00 77 /min [facility] Medicine Systolic blood 2022-03-16 20:41:00 170 mm[Hg] [facility] pressure of Medicine Diastolic blood 2022-03-16 20:41:00 79 mm[Hg] [facility] pressure of Medicine Heart rate 2022-03-16 20:41:00 75 /min [facility] Body temperature 2022-03-16 20:41:00 36.61 Chiara [facility] Respiratory rate 2022-03-16 20:41:00 18 /min [facility] Body height 2022-03-16 20:41:00 177.8 cm [facility] Body weight 2022-03-16 20:41:00 90.719 kg [facility] BMI 2022-03-16 20:41:00 28.70 kg/m2 [facility] Medicine Systolic blood 2022-03-11 14:28:00 115 mm[Hg] [facility] pressure of Medicine Diastolic blood 2022-03-11 14:28:00 74 mm[Hg] [facility] [employer] [facility] Heart rate 2022-03-11 14:28:00 67 /min [facility] ol[facility] of Medicine Respiratory rate 2022-03-11 14:28:00 16 /min [facility] Body height 2022-03-11 14:28:00 177.8 cm [facility] Body weight 2022-03-11 14:28:00 90.719 kg [facility] BMI 2022-03-11 14:28:00 28.70 kg/m2 [facility] of Medicine Systolic blood 2022-02-03 15:13:00 124 mm[Hg] [facility] pressure of Medicine Diastolic blood 2022-02-03 15:13:00 77 mm[Hg] [facility] pressure of Medicine Heart rate 2022-02-03 15:13:00 80 /min [facility] Medicine Body height 2022-02-03 15:13:00 177.8 cm [facility] Body weight 2022-02-03 15:13:00 92.08 kg [facility] BMI 2022-02-03 15:13:00 29.13 kg/m2 [facility] Medicine HEIGHT 2022-01-06 13:24:00 177.8 cm WEIGHT 2022-01-06 13:24:00 92.806 kg HEIGHT 2022-01-06 13:24:00 177.8 cm WEIGHT 2022-01-06 13:24:00 92.806 kg Systolic blood 2022-01-06 16:14:00 139 mm[Hg] [facility] pressure of Medicine Diastolic blood 2022-01-06 16:14:00 67 mm[Hg] [facility] pressure of Medicine Heart rate 2022-01-06 16:14:00 86 /min [facility] Body height 2022-01-06 16:14:00 177.8 cm [facility] Body weight 2022-01-06 16:14:00 92.08 kg [facility] BMI 2022-01-06 16:14:00 29.13 kg/m2 [facility] Systolic blood 2021-11-25 16:18:00 135 mm[Hg] [facility] pressure of Medicine Diastolic blood 2021-11-25 16:18:00 82 mm[Hg] [facility] pressure of Medicine Heart rate 2021-11-25 16:18:00 65 /min [facility] of Medicine Respiratory rate 2021-11-25 16:18:00 16 /min [facility] Body height 2021-11-25 16:18:00 177.8 cm [facility] Body weight 2021-11-25 16:18:00 94.62 kg [facility] BMI 2021-11-25 16:18:00 29.93 kg/m2 [facility] Systolic blood 2021-08-26 20:59:00 137 mm[Hg] [facility] pressure of Medicine Diastolic blood 2021-08-26 20:59:00 75 mm[Hg] [facility] pressure of Medicine Heart rate 2021-08-26 20:59:00 49 /min [facility] Body height 2021-08-26 20:59:00 177.8 cm [facility] Body weight 2021-08-26 20:59:00 102.059 kg [facility] BMI 2021-08-26 20:59:00 32.28 kg/m2 [facility] HEIGHT 2021-08-14 12:00:00 177.8 cm WEIGHT 2021-08-14 12:00:00 103.42 kg HEIGHT 2021-08-14 12:00:00 177.8 cm WEIGHT 2021-08-14 12:00:00 103.42 kg HEIGHT 2021-08-06 12:19:00 177.8 cm WEIGHT 2021-08-06 12:19:00 101.152 kg HEIGHT 2021-08-06 12:19:00 177.8 cm WEIGHT 2021-08-06 12:19:00 101.152 kg Systolic blood 2021-07-29 16:06:00 176 mm[Hg] [facility] pressure of Medicine Diastolic blood 2021-07-29 16:06:00 82 mm[Hg] [facility] pressure of Medicine Heart rate 2021-07-29 16:06:00 75 /min [facility] Body height 2021-07-29 16:06:00 177.8 cm [facility] Body weight 2021-07-29 16:06:00 101.152 kg [facility] BMI 2021-07-29 16:06:00 32.00 kg/m2 [facility] HEIGHT 2021-07-16 06:40:00 177.8 cm WEIGHT 2021-07-16 06:40:00 101.3 kg HEIGHT 2021-07-13 15:24:00 177.8 cm WEIGHT 2021-07-13 15:24:00 102.059 kg HEIGHT 2021-07-16 06:40:00 177.8 cm WEIGHT 2021-07-16 06:40:00 101.3 kg HEIGHT 2021-07-13 15:24:00 177.8 cm WEIGHT 2021-07-13 15:24:00 102.059 kg Systolic blood 2021-06-03 21:14:00 175 mm[Hg] [facility] pressure of Medicine Diastolic blood 2021-06-03 21:14:00 63 mm[Hg] [facility] pressure of Medicine Heart rate 2021-06-03 21:14:00 46 /[facility] Respiratory rate 2021-06-03 21:14:00 16 /min [facility] Body height 2021-06-03 21:14:00 177.8 cm [facility] ollege of Medicine Body weight 2021-06-03 21:14:00 103.874 kg [facility] ol[facility] of [facility] BMI 2021-06-03 21:14:00 32.86 kg/m2 [facility] HEIGHT 2020-11-11 11:05:00 177.8 cm WEIGHT 2020-11-11 11:05:00 102.059 kg WEIGHT 2020-09-25 07:10:00 102.241 kg HEIGHT 2020-09-24 08:08:00 177.8 cm WEIGHT 2020-09-24 08:08:00 102.241 kg WEIGHT 2020-09-23 09:28:00 102.967 kg HEIGHT 2020-09-23 09:28:00 177.8 cm WEIGHT 2020-09-23 09:28:00 102.967 kg HEIGHT 2020-09-23 09:28:00 177.8 cm Systolic blood 2020-09-01 21:45:00 118 mm[Hg] [facility] pressure of Medicine Diastolic blood 2020-09-01 21:45:00 82 mm[Hg] [place] pressure of Medicine Heart rate 2020-09-01 21:38:00 96 /min [facility] Body height 2020-09-01 21:38:00 177.8 cm [facility] Body weight 2020-09-01 21:38:00 99.791 kg [facility] BMI 2020-09-01 21:38:00 31.57 kg/m2 [facility] Medicine Systolic blood 2020-09-01 21:45:00 118 mm[Hg] [facility] pressure of Medicine Diastolic blood 2020-09-01 21:45:00 82 mm[Hg] [facility] [employer] pressure [facility] Heart rate 2020-09-01 21:38:00 96 /min [facility] Medicine Body height 2020-09-01 21:38:00 177.8 cm [facility] Body weight 2020-09-01 21:38:00 99.791 kg [facility] Medicine BMI 2020-09-01 21:38:00 31.57 kg/m2 [facility] Medicine Systolic blood 2020-07-02 19:27:00 125 mm[Hg] [facility] pressure [facility] Diastolic blood 2020-07-02 19:27:00 75 mm[Hg] [employer] [employer] pressure [facility] Heart rate 2020-07-02 19:27:00 91 /min [facility] Body height 2020-07-02 19:27:00 177.8 cm [facility] Body weight 2020-07-02 19:27:00 104.327 kg [facility] BMI 2020-07-02 19:27:00 33.00 kg/m2 [facility] Systolic blood 2020-07-02 19:27:00 125 mm[Hg] [facility] pressure [facility] Medicine Diastolic blood 2020-07-02 19:27:00 75 mm[Hg] [place] [facility] [place] pressure of Medicine Heart rate 2020-07-02 19:27:00 91 /min [facility] Body height 2020-07-02 19:27:00 177.8 cm [facility] Body weight 2020-07-02 19:27:00 104.327 kg [facility] BMI 2020-07-02 19:27:00 33.00 kg/m2 [facility] Medicine Systolic blood 2020-06-04 22:12:00 153 mm[Hg] [facility] pressure [facility] Diastolic blood 2020-06-04 22:12:00 82 mm[Hg] [place] pressure of Medicine Heart rate 2020-06-04 22:12:00 79 /min [facility] Medicine Body height 2020-06-04 22:12:00 177.8 cm [facility] Body weight 2020-06-04 22:12:00 104.327 kg [facility] Medicine BMI 2020-06-04 22:12:00 33.00 kg/m2 [facility] Medicine Systolic blood 2020-06-04 22:12:00 153 mm[Hg] [facility] pressure of Medicine Diastolic blood 2020-06-04 22:12:00 82 mm[Hg] [facility] [place] pressure of Medicine Heart rate 2020-06-04 22:12:00 79 /min [facility] of Medicine Body height 2020-06-04 22:12:00 177.8 cm [facility] of Medicine Body weight 2020-06-04 22:12:00 104.327 kg [facility] Medicine BMI 2020-06-04 22:12:00 33.00 kg/m2 [facility] Medicine Systolic blood 2022-06-24 14:45:00 109 mm[Hg] [facility] Diastolic blood 2022-06-24 14:45:00 60 mm[Hg] [facility] Heart rate 2022-06-24 14:45:00 60 /min [facility] Body temperature 2022-06-24 14:45:00 36.39 Chiara [facility] Respiratory rate 2022-06-24 14:45:00 13 /min [facility] Oxygen saturation in 2022-06-24 14:45:00 95 /min [facility] Arterial blood by Medical Ce nter Pulse oximetry Body height 2022-06-10 15:14:00 177.8 cm [facility] Body weight 2022-06-10 15:14:00 88.451 kg [facility] BMI 2022-06-10 15:14:00 27.98 kg/m2 [facility] Systolic blood 2022-05-03 14:30:00 184 mm[Hg] MD notified [facility] Diastolic blood 2022-05-03 14:30:00 80 mm[Hg] MD notified [facility] Heart rate 2022-05-03 14:30:00 77 /min [facility] Respiratory rate 2022-05-03 14:30:00 17 /min [facility] Oxygen saturation in 2022-05-03 11:45:00 93 /min [facility] Arterial blood by Medical Ce nter Pulse oximetry Body temperature 2022-05-03 05:57:00 36.83 Chiara [facility] Body height 2022-05-03 05:57:00 177.8 cm [facility] Body weight 2022-05-03 05:57:00 90.719 kg [facility] BMI 2022-05-03 05:57:00 28.70 kg/m2 [facility] Systolic blood 2022-01-11 15:10:00 116 mm[Hg] [facility] Diastolic blood 2022-01-11 15:10:00 63 mm[Hg] [facility] Heart rate 2022-01-11 15:10:00 60 /min [facility] Body temperature 2022-01-11 15:10:00 36.17 Chiara [facility] Respiratory rate 2022-01-11 15:10:00 18 /min [facility] Oxygen saturation in 2022-01-11 15:10:00 97 /min [facility] Arterial blood by Medical Ce nter Pulse oximetry Body height 2022-01-06 13:24:00 177.8 cm [facility] Body weight 2022-01-06 13:24:00 92.806 kg [facility] BMI 2022-01-06 13:24:00 29.36 kg/m2 [facility] Procedures Procedure Date / Time Performing Clinician Source Performed EXTRACTION,CATARACT W/ IOL 2022-06-24 13:45:00 Lenny Mendoza [facility] INSERTION, TUBE SHUNT, EYE, 2022-06-24 13:45:00 Lenny Mendoza [facility] WITH CORNEAL PATCH GRAFT [facility] APPLICATION EXTRACTION,CATARACT W/ IOL 2022-06-24 13:03:00 Lenny Mendoza [facility] INSERTION, TUBE SHUNT, EYE, 2022-06-24 13:03:00 Lenny Mendoza [facility] WITH CORNEAL PATCH GRAFT [facility] APPLICATION VITRECTOMY, ANTERIOR 2022-06-24 13:03:00 Lenny Mendoza [facility] POCT-GLUCOSE METER 2022-06-24 12:35:[address] [facility] POCT-GLUCOSE METER 2022-05-03 11:26:[address] [facility] ANGIOPLASTY, ARTERY, LOWER 2022-05-03 09:55:00 Bassem Abraham [facility] ANGIOPLASTY, ARTERY, LOWER 2022-05-03 07:30:00 Bassem Abraham [facility] APTT 2022-05-03 06:34:00 Shaina [facility] PROTHROMBIN TIME/INR 2022-05-03 06:34:00 Shaina [facility] CBC W/PLT COUNT & AUTO 2022-05-03 06:34:00 Bassem Abraham [facility] BASIC METABOLIC PANEL 2022-05-03 06:34:00 Bassem Abraham [facility] TYPE AND SCREEN, AUTOMATED 2022-05-03 06:34:00 Yolis Merritt [facility] CBC W/PLT COUNT & AUTO 2022-05-03 06:34:00 Bassem Abraham [facility] ECG 12-LEAD 2022-05-03 06:07:27 Bassem Abraham [facility] ECG 12-LEAD 2022-05-03 06:07:27 Unknown, Hl7 Doctor [facility] CARDIAC CATH REPORT - SCAN 2022-05-03 00:00:00 Provider[facility] WOUND CARE INSTRUCTIONS 2022-02-09 11:41:51 [facility] POCT-GLUCOSE METER 2022-01-11 17:26:00 Penny [facility] POCT-GLUCOSE METER 2022-01-11 12:16:00 Penny [facility] POCT-GLUCOSE METER 2022-01-11 08:43:00 Penny [facility] CBC W/PLT COUNT & AUTO 2022-01-11 05:02:00 Penny [facility] [place] [facility] BASIC METABOLIC PANEL 2022-01-11 05:02:00 Lenny Panchal [facility] MAGNESIUM 2022-01-11 05:02:00 Penny [facility] APTT 2022-01-11 05:02:00 Lenny Panchal [facility] CBC W/PLT COUNT & AUTO 2022-01-11 05:02:00 Lenny Panchal [facility] POCT-GLUCOSE METER 2022-01-10 21:30:00 Penny [facility] POCT-GLUCOSE METER 2022-01-10 18:14:00 Penny [facility] POCT-GLUCOSE METER 2022-01-10 08:06:00 Penny [facility] CBC W/PLT COUNT & AUTO 2022-01-10 03:56:00 Penny [facility] [place] [facility] BASIC METABOLIC PANEL 2022-01-10 03:56:00 Lenny Panchal [facility] MAGNESIUM 2022-01-10 03:56:00 Lenny Panchal [facility] APTT 2022-01-10 03:56:00 Baldomerofrancisco j [facility] CBC W/PLT COUNT & AUTO 2022-01-10 03:56:00 Penny [facility] [place] [facility] POCT-GLUCOSE METER 2022-01-09 21:02:00 Penny [facility] POCT-GLUCOSE METER 2022-01-09 16:56:00 Penny [facility] 2D ECHO W/ DOPPLER 2022-01-09 14:09:49 Kaitlin Victoria [facility] (CW/PW/COLOR) [facility] AFB CULTURE + SMEAR (SPUTUM 2022-01-09 13:09:00 [facility] SPIN[facility]CONCENTRATION CHARGE 2022-01-09 13:09:00 Kitty Ag I [facility] POCT-GLUCOSE METER 2022-01-09 11:58:00 Penny [facility] CBC W/PLT COUNT & AUTO 2022-01-09 04:16:00 Penny [facility] [place] [facility] BASIC METABOLIC PANEL 2022-01-09 04:16:00 Lenny Panchal [facility] MAGNESIUM 2022-01-09 04:16:00 Penny [facility] APTT 2022-01-09 04:16:00 Penny [facility] CBC W/PLT COUNT & AUTO 2022-01-09 04:16:00 Penny [facility] [place] [facility] APTT 2022-01-08 21:34:00 Penny [facility] POCT-GLUCOSE METER 2022-01-08 20:37:00 Penny [facility] POCT-GLUCOSE METER 2022-01-08 17:24:00 Penny [facility] APTT 2022-01-08 13:14:00 Penny [facility] POCT-GLUCOSE METER 2022-01-08 11:34:00 Lenny Panchal [facility] POCT-GLUCOSE METER 2022-01-08 07:16:00 Penny [facility] APTT 2022-01-08 06:37:00 Penny [facility] CTA AAA AND RUNOFF 2022-01-08 06:03:00 Sindy [facility] CTA CHEST 2022-01-08 06:03:00 Sindy [facility] CBC W/PLT COUNT & AUTO 2022-01-08 03:39:00 Penny [facility] [place] [facility] BASIC METABOLIC PANEL 2022-01-08 03:39:00 Lenny Panchal [facility] MAGNESIUM 2022-01-08 03:39:00 Penny [facility] APTT 2022-01-08 03:39:00 Penny [facility] CBC W/PLT COUNT & AUTO 2022-01-08 03:39:00 Penny [facility] [place] [facility] SPUTUM CULTURE + GRAM STAIN 2022-01-07 21:39:00 Pinky Coley [facility] POCT-GLUCOSE METER 2022-01-07 19:40:00 Penny [facility] POCT-GLUCOSE METER 2022-01-07 17:17:00 Lenny Panchal [facility] POCT-GLUCOSE METER 2022-01-07 12:37:00 Penny [facility] BASIC METABOLIC PANEL 2022-01-07 11:23:00 Lenny Panchal [facility] MAGNESIUM 2022-01-07 11:23:00 Penny [facility] APTT 2022-01-07 11:23:00 Penny [facility] POCT-GLUCOSE METER 2022-01-07 07:54:00 Penny [facility] APTT 2022-01-07 04:37:00 Lenny Panchal [facility] CBC W/PLT COUNT & AUTO 2022-01-07 04:36:00 Penny [facility] CBC W/PLT COUNT & AUTO 2022-01-07 04:36:00 Lenny Panchalon [facility] APTT 2022-01-06 22:57:00 Penny [facility] POCT-GLUCOSE METER 2022-01-06 19:40:00 Penny [facility] BASIC METABOLIC PANEL 2022-01-06 17:51:00 Lenny [facility]anchal [facility] POCT-GLUCOSE METER 2022-01-06 17:14:00 Penny [facility] SARS-COV2/RT-PCR ([facility] & 2022-01-06 16:25:00 Lenny Panchal [facility] REF LABS) [facility] APTT 2022-01-06 15:59:00 Penny [facility] PROTHROMBIN TIME/INR 2022-01-06 15:59:[address] [facility] HEPATIC FUNCTION PANEL 2022-01-06 15:59:00 Penny [facility] MAGNESIUM 2022-01-06 15:59:00 Penny [facility] PHOSPHORUS 2022-01-06 15:59:00 Penny [facility] HEMOGLOBIN A1C 2022-01-06 15:59:00 Penny [facility] CBC W/PLT COUNT & AUTO 2022-01-06 15:59:00 Penny [facility] TYPE AND SCREEN, AUTOMATED 2022-01-06 15:59:00 Lenny Panchal [facility] CBC W/PLT COUNT & AUTO 2022-01-06 15:59:00 Penny [facility] POCT-GLUCOSE METER 2021-08-14 15:01:[address] [facility] POCT-GLUCOSE METER 2021-08-14 13:23:00 Jarad [facility] ARTERIOGRAM, PERIPHERAL 2021-08-14 13:09:00 Abraham [facility] POCT-GLUCOSE METER 2021-08-14 13:04:00 Abraham [facility] CARDIAC CATH REPORT - SCAN 2021-08-14 00:00:00 Provider [facility] SARS-COV2/RT-PCR ([facility] & 2021-08-06 12:24:00 Abraham [facility] REF LABS) [facility] POCT-GLUCOSE METER 2021-07-21 11:27:00 [facility]SE METER 2021-07-21 09:25:00 Meera [facility] CBC W/PLT COUNT & AUTO 2021-07-21 05:06:00 Shruti [facility] BASIC METABOLIC PANEL 2021-07-21 05:06:00 Shruti [facility] PHOSPHORUS 2021-07-21 05:06:00 Shruti [facility] MAGNESIUM 2021-07-21 05:06:00 Shruti [facility] CBC W/PLT COUNT & AUTO 2021-07-21 05:06:00 Shruti [facility] POCT-GLUCOSE METER 2021-07-20 21:25:00 Penny [facility] POCT-GLUCOSE METER 2021-07-20 17:28:00 Penny [facility] POCT-GLUCOSE METER 2021-07-20 11:35:00 Penny [facility] POCT-GLUCOSE METER 2021-07-20 07:23:00 Penny [facility] CBC W/PLT COUNT & AUTO 2021-07-20 04:54:00 Shruti [facility] BASIC METABOLIC PANEL 2021-07-20 04:54:00 Shruti [facility] PHOSPHORUS 2021-07-20 04:54[facility] 2021-07-20 04:54:00 Shruti [facility] CBC W/PLT COUNT & AUTO 2021-07-20 04:54:00 Shruti [facility] POCT-GLUCOSE METER 2021-07-19 21:15:00 Lenny Panchal [facility] SODIUM, RANDOM URINE 2021-07-19 18:37:00 Lenny Panchal I [facility] CREATININE, RANDOM URINE 2021-07-19 18:37:00 Lenny Panchal [facility] URINALYSIS W/ MICROSCOPIC 2021-07-19 18:37:00 Lenny Panchal [facility] POCT-GLUCOSE METER 2021-07-19 16:58:00 Lenny Panchal [facility] BASIC METABOLIC PANEL 2021-07-19 15:53:00 Carmine [facility] [facility] POCT-GLUCOSE METER 2021-07-19 11:27:00 Lenny Panchal [facility] XR ABDOMEN/KUB 1 VIEW 2021-07-19 10:18:00 Lou [facility] POCT-GLUCOSE METER 2021-07-19 07:30:00 Lenny Panchal [facility] CBC W/PLT COUNT & AUTO 2021-07-19 05:47:00 Shruti [facility] BASIC METABOLIC PANEL 2021-07-19 05:47:00 Shruti [facility] PHOSPHORUS 2021-07-19 05:47:00 Shruti [facility] MAGNESIUM 2021-07-19 05:47:00 Shruti [facility] CBC W/PLT COUNT & AUTO 2021-07-19 05:47:00 [facility] POCT-GLUCOSE METER 2021-07-18 20:59:00 Lenny Panchal [facility] POCT-GLUCOSE METER 2021-07-18 17:00:00 Lenny Panchal [facility] POCT-GLUCOSE METER 2021-07-18 12:54:00 Lenny Panchal [facility] POCT-GLUCOSE METER 2021-07-18 08:19:00 Baldomerofrancisco j Lenny [facility] CBC W/PLT COUNT & AUTO 2021-07-18 04:05:00 [facility] MET[facility]OLIC PANEL 2021-07-18 04:05[facility]18 [facility] 2021-07-18 04:05:00 [facility] HEMOGLOBIN A1C 2021-07-18 04:05:00 Penny Lenny [facility] CBC W/PLT COUNT & AUTO 2021-07-18 04:05:00 Evangelinapr [facility] POCT-GLUCOSE METER 2021-07-17 16:26:00 Jarad [facility] XR ABDOMEN/KUB 1 VIEW 2021-07-17 13:24:00 [facility] PO[facility]UCOSE METER 2021-07-17 12:20:00 [facility] 2021-07-17 07:46:48 KorMaritza davis [facility] ECG 12-LEAD 2021-07-17 07:46:48 Unknown, Hl7 [facility] ECG 12-LEAD 2021-07-17 07:45:44 Unknown, Hl7 [facility] POCT-GLUCOSE METER 2021-07-17 06:25:00 Jarad [facility] CBC W/PLT COUNT & AUTO 2021-07-17 03:28:00 Shruti [facility] BASIC METABOLIC PANEL 2021-07-17 03:28:00 Shruti [facility] PHOSPHORUS 2021-07-17 03:28:00 [facility] 2021-07-17 03:28:00 [facility] W/PLT COUNT & AUTO 2021-07-17 03:28:00 [facility] 2021-07-16 23:52:00 Jarad [facility] CBC W/PLT COUNT & AUTO 2021-07-16 15:48:00 [facility] BASIC METABOLIC PANEL 2021-07-16 15:48:00 [facility] PROTHROMBIN TIME/INR 2021-07-16 15:48:00 [facility] APTT 2021-07-16 15:48:00 [facility] MAGNESIUM 2021-07-16 15:48:00 [facility] PHOSPHORUS 2021-07-16 15:48:00 [facility] CBC W/PLT COUNT & AUTO 2021-07-16 15:48:00 [facility] POCT-ACT 2021-07-16 13:39:00 Jarad [facility] RRL CRITICAL LABS 2021-07-16 13:37:06 Willian [facility] (ABG,NA,K,H&H,GLUCOSE) [facility] enter BLOOD GAS, ARTERIAL 2021-07-16 13:37:06 Willian [facility] SODIUM NA-STAT LAB 2021-07-16 13:37:[address] [facility] POTASSIUM-STAT LAB 2021-07-16 13:37:[address] [facility] GLUCOSE-STAT LAB 2021-07-16 13:37:06 Creo, [facility] HGB/HCT (H&H) - STAT LAB 2021-07-16 13:37:[address] [facility] POCT-ACT 2021-07-16 13:01:00 Jarad [facility] POCT-ACT 2021-07-16 12:43:00 Jarad [facility] POCT-ACT 2021-07-16 12:06:00 Abraham [facility] POCT-ACT 2021-07-16 11:46:00 Abraham [facility] POCT-ACT 2021-07-16 11:10:00 Abraham [facility] POCT-ACT 2021-07-16 10:37:00 Jarad [facility] TISSUE EXAM 2021-07-16 10:13:00 Jarad [facility] POCT-ACT 2021-07-16 10:04:00 Jarad [facility] RRL CRITICAL LABS 2021-07-16 08:15:31 [facility] (ABG,NA,K,H&H,GLUCOSE) [facility] enter BLOOD GAS, ARTERIAL 2021-07-16 08:15:31 [facility] SODIUM NA-STAT LAB 2021-07-16 08:15:31 [facility] POTASSIUM-STAT LAB 2021-07-16 08:15:31 [facility] GLUCOSE-STAT LAB 2021-07-16 08:15:31 [facility] HGB/HCT (H&H) - STAT LAB 2021-07-16 08:15:31 [facility] F[facility]AL 2021-07-16 07:09:00 Jarad [facility] ANGIOPLASTY, ARTERY, LOWER 2021-07-16 07:09:00 Bassem Abraham [facility] ECG 12-LEAD 2021-07-16 07:06:17 Unknown, Hl7 [facility] ECG 12-LEAD 2021-07-16 07:05:37 Unknown, Hl7 Doctor [facility] ECG 12-LEAD 2021-07-16 07:05:37 Unknown, Hl7 [facility] POCT-GLUCOSE METER 2021-07-16 06:32:[address] [facility] ARRYTHMIA IMPLANT REPORT - 2021-07-16 00:00:00 Provider, Bella [facility] SCAN Scanning [facility] SARS-COV2/RT-PCR ([facility] & 2021-07-13 11:15:00 Denice Jean [facility] REF LABS) [facility] BASIC METABOLIC PANEL 2021-07-13 11:15:00 Armand [facility] HEMOGLOBIN 2021-07-13 11:15:00 Armand Gentile [facility] TYPE AND SCREEN, AUTOMATED 2021-07-13 11:15:00 Armand Gentile and [facility] CT SOFT TISSUE NECK WO 2020-12-23 20:00:47 [facility] HEAD WO CONTRAST 2020-12-23 20:00:27 Requisition, Paper Unive [facility] NOTICE OF PRIVACY PRACTICES 2020-12-23 19:22:07 Doctor Pooja salcido, [facility] CONSENT/REFUSAL FOR 2020-12-23 19:21:49 Doctor Jordan, [facility] DIAGNOSIS AND TREATMENT [facility] ASSIGNMENT OF BENEFITS 2020-12-23 19:21:31 Doctor Jordan[facility] [place] ELECTROCARDIOGRAM COMPLETE 2020-09-01 22:12:26 Denice Jean [facility] Plan of Care Planned Activity Planned Date Details Comments Source Future Scheduled 2023-06-24 Tobacco Cessation [facility] 00:[facility]00 [facility] r Screening (12+) [code = Tobacco Cessation Counseling and Screening (12+)] Future Scheduled 2023-06-24 Tobacco Cessation [facility] 00:00:00 [facility] r Screening (12+) [code = Tobacco Cessation Counseling and Screening (12+)] Future Scheduled 2023-06-[address] [facility] Test 00:00:00 [facility] r Screening (12+) [code = Tobacco Cessation Counseling and Screening (12+)] Future Scheduled 2023-06-[address] [facility] Test 00:00:00 [facility] Screening (12+) [code = Tobacco Cessation Counseling and Screening (12+)] Future Scheduled 2023-06-[address] [facility] Test 00:00:00 [facility] r Screening (12+) [code = Tobacco Cessation Counseling and Screening (12+)] Future Scheduled 2023-06-[address] [facility] Test 00:00:00 [facility] r Screening (12+) [code = Tobacco Cessation Counseling and Screening (12+)] Future Scheduled 2023-06-[address] [facility] Test 00:00:00 [facility] r Screening (12+) [code = Tobacco Cessation Counseling and Screening (12+)] Future Scheduled 2023-05-[address] [facility] Test 00:00:00 [facility] r Screening (12+) [code = Tobacco Cessation Counseling and Screening (12+)] Future Scheduled 2023-05-[address] [facility] Test 00:00:00 [facility] Cent[facility] r Screening (12+) [code = Tobacco Cessation Counseling and Screening (12+)] Future Scheduled 2023-05-[address] [facility] Test 00:00:00 [facility] Cent[facility] r Screening (12+) [code = Tobacco Cessation Counseling and Screening (12+)] Future Scheduled 2022-08-30 Screening for malignant [facility] Test 10:30:47 neoplasm of colon of Medicin e (procedure) [code = 707926417] Future Scheduled 2022-08-30 Pneumococcal [facility] Test 10:30:47 (1 - PCV) [code = of Medicin e Pneumococcal Combined (1 - PCV)] Future Scheduled 2022-08-30 TETANUS SHOT (ADULT) [facility] Test 10:30:47 [code = TETANUS SHOT of Medi cine (ADULT)] Future Scheduled 2022-08-30 Diabetic foot [facility] Test 10:30:47 examination of Medicine (regime/therapy) [code = 148496647] Future Scheduled 2022-08-30 [facility] virus screening of Medicine (procedure) [code = 738798676] Future Scheduled 2022-08-30 Hepatitis C screening Ba [facility] Test 10:30:47 (procedure) [code = of Medic ine 480433865] Future Scheduled 2022-08-30 ZOSTER VACCINE (1 of 2) [facility] Test 10:30:47 [code = ZOSTER VACCINE of Me dicine (1 of 2)] Future Scheduled 2022-08-30 Medicare Awv (Initial) [facility] Test 10:30:47 [code = Medicare Awv of Medi cine (Initial)] Future Scheduled 2022-08-30 COVID-19 Vaccine (3 - Ba [facility] Test 10:30:47 Booster for Moderna of Medic ine series) [code = COVID-19 Vaccine (3 - Booster for Moderna series)] Future Scheduled 2022-08-30 BMI Follow Up Plan [facility] Test 10:30:47 [code = BMI Follow Up of Med icine Plan] Future Scheduled 2022-08-30 FLU VACCINE > 6 MONTHS [facility] Test 10:30:47 [code = FLU VACCINE > 6 of M edicine MONTHS] Future Scheduled 2022-08-30 Annual Diabetic [facility] Test 10:30:47 Retinopathy Screening of Med icine [code = Annual Diabetic Retinopathy Screening] Future Scheduled 2022-08-26 US 1 Occurrences [facility] Test 12:04:37 AORTA,IVC,ILIACS,GRAFT starting of Me dicine COMPLETE DUPLEX [code = 08/26/2022 until 85940-3] 08/27/2023 Future Scheduled 2022-06-[address] [facility] Test 00:00:00 (12+) [code = Medical Center DEPRESSION SCREENING (12+)] Future Scheduled 2022-06-[address] [facility] Test 00:00:00 (12+) [code = Medical Center DEPRESSION SCREENING (12+)] Future Scheduled 2022-06-[address] [facility] Test 00:00:00 (12+) [code = Medical Center DEPRESSION SCREENING (12+)] Future Scheduled 2022-06-[address] [facility] Test 00:00:00 (12+) [code = Medical Center DEPRESSION SCREENING (12+)] Future Scheduled 2022-06-[address] [facility] Test 00:00:00 (12+) [code = Medical Center DEPRESSION SCREENING (12+)] Future Scheduled 2022-06-[address] [facility] Test 00:00:00 (12+) [code = Medical Center DEPRESSION SCREENING (12+)] Future Scheduled 2022-06-[address] [facility] Test 00:00:00 (12+) [code = Medical Center DEPRESSION SCREENING (12+)] Future Scheduled 2022-05-26 Screening for malignant [facility] Test 14:03:33 neoplasm of colon of Medicin e (procedure) [code = 113540226] Future Scheduled 2022-05-26 Pneumococcal [facility] Test 14:03:33 (1 - PCV) [code = of Medicin e Pneumococcal Combined (1 - PCV)] Future Scheduled 2022-05-26 TETANUS SHOT (ADULT) [facility] Test 14:03:33 [code = TETANUS SHOT of Medi cine (ADULT)] Future Scheduled 2022-05-26 Diabetic foot [facility] Test 14:03:33 examination of Medicine (regime/therapy) [code = 854310008] Future Scheduled 2022-05-26 Hepatitis C screening [facility] Test 14:03:33 (procedure) [code = of Medic ine 080312679] Future Scheduled 2022-05-26 Human immunodeficiency [facility] Test 14:03:33 virus screening of Medicine (procedure) [code = 446328069] Future Scheduled 2022-05-26 ZOSTER VACCINE (1 of 2) [facility] Test 14:03:33 [code = ZOSTER VACCINE of Ga dicine (1 of 2)] Future Scheduled 2022-05-26 MEDICARE AWV (Initial) [facility] Test 14:03:33 [code = MEDICARE AWV of Medi cine (Initial)] Future Scheduled 2022-05-26 COVID-19 Vaccine (3 - Ba [facility] Test 14:03:33 Booster for Moderna of Medic ine series) [code = COVID-19 Vaccine (3 - Booster for Moderna series)] Future Scheduled 2022-05-26 BMI FOLLOW UP PLAN [facility] Test 14:03:33 [code = BMI FOLLOW UP of Med icine PLAN] Future Scheduled 2022-05-26 FLU VACCINE > 6 MONTHS [facility] Test 14:03:33 [code = FLU VACCINE > 6 of M edicine MONTHS] Future Scheduled 2022-05-26 ANNUAL DIABETIC [facility] Test 14:03:33 RETINOPATHY SCREENING of Med icine [code = ANNUAL DIABETIC RETINOPATHY SCREENING] Future Scheduled 2022-05-26 US ARTERIAL LEG LEFT 1 Occurrences [facility] Test 13:51:44 [code = 55605] starting of Medicine 05/26/2022 until 05/26/2023 Future Scheduled 2022-05-19 Screening for malignant [facility] Test 07:53:16 neoplasm of colon of Medicin e (procedure) [code = 957980461] Future Scheduled 2022-05-19 Pneumococcal [facility] Test 07:53:16 (1 - PCV) [code = of Medicin e Pneumococcal Combined (1 - PCV)] Future Scheduled 2022-05-19 TETANUS SHOT (ADULT) [facility] Test 07:53:16 [code = TETANUS SHOT of Medi cine (ADULT)] Future Scheduled 2022-05-19 Diabetic foot [facility] Test 07:53:16 examination of Medicine (regime/therapy) [code = 455773603] Future Scheduled 2022-05-19 Hepatitis C screening [facility] Test 07:53:16 (procedure) [code = of Medic ine 269354725] Future Scheduled 2022-05-19 Human immunodeficiency [facility] Test 07:53:16 virus screening of Medicine (procedure) [code = 355559086] Future Scheduled 2022-05-19 ZOSTER VACCINE (1 of 2) [facility] Test 07:53:16 [code = ZOSTER VACCINE of Ga dicine (1 of 2)] Future Scheduled 2022-05-19 MEDICARE AWV (Initial) [facility] Test 07:53:16 [code = MEDICARE AWV of Medi cine (Initial)] Future Scheduled 2022-05-19 COVID-19 Vaccine (3 - Ba [facility] Test 07:53:16 Booster for Moderna of Medic ine series) [code = COVID-19 Vaccine (3 - Booster for Moderna series)] Future Scheduled 2022-05-19 BMI FOLLOW UP PLAN [facility] Test 07:53:16 [code = BMI FOLLOW UP of Med icine PLAN] Future Scheduled 2022-05-19 FLU VACCINE > 6 MONTHS [facility] Test 07:53:16 [code = FLU VACCINE > 6 of M edicine MONTHS] Future Scheduled 2022-05-19 ANNUAL DIABETIC [facility] Test 07:53:16 RETINOPATHY SCREENING of Med icine [code = ANNUAL DIABETIC RETINOPATHY SCREENING] Future Scheduled 2022-04-21 Screening for malignant [facility] Test 10:09:40 neoplasm of colon of Medicin e (procedure) [code = 343162273] Future Scheduled 2022-04-21 Pneumococcal [facility] Test 10:09:40 (1 - PCV) [code = of Medicin e Pneumococcal Combined (1 - PCV)] Future Scheduled 2022-04-21 TETANUS SHOT (ADULT) [facility] Test 10:09:40 [code = TETANUS SHOT of Medi cine (ADULT)] Future Scheduled 2022-04-21 Diabetic foot [facility] Test 10:09:40 examination of Medicine (regime/therapy) [code = 153526588] Future Scheduled 2022-04-21 Hepatitis C screening [facility] Test 10:09:40 (procedure) [code = of Medic ine 724674978] Future Scheduled 2022-04-21 Human immunodeficiency [facility] Test 10:09:40 virus screening of Medicine (procedure) [code = 081071734] Future Scheduled 2022-04-21 ZOSTER VACCINE (1 of 2) [facility] Test 10:09:40 [code = ZOSTER VACCINE of Ga dicine (1 of 2)] Future Scheduled 2022-04-21 MEDICARE AWV (Initial) [facility] Test 10:09:40 [code = MEDICARE AWV of Medi cine (Initial)] Future Scheduled 2022-04-21 COVID-19 Vaccine (3 - Ba [facility] Test 10:09:40 Booster for Moderna of Medic ine series) [code = COVID-19 Vaccine (3 - Booster for Moderna series)] Future Scheduled 2022-04-21 BMI FOLLOW UP PLAN [facility] Test 10:09:40 [code = BMI FOLLOW UP of Med icine PLAN] Future Scheduled 2022-04-21 FLU VACCINE > 6 MONTHS [facility] Test 10:09:40 [code = FLU VACCINE > 6 of M edicine MONTHS] Future Scheduled 2022-04-21 ANNUAL DIABETIC [facility] Test 10:09:40 RETINOPATHY SCREENING of Med icine [code = ANNUAL DIABETIC RETINOPATHY SCREENING] Future Scheduled 2022-03-31 Screening for malignant [facility] Test 13:48:11 neoplasm of colon of Medicin e (procedure) [code = 639735179] Future Scheduled 2022-03-31 Pneumococcal Combined [facility] Test 13:48:11 (1 - PCV) [code = of Medicin e Pneumococcal Combined (1 - PCV)] Future Scheduled 2022-03-31 TETANUS SHOT (ADULT) [facility] Test 13:48:11 [code = TETANUS SHOT of Medi cine (ADULT)] Future Scheduled 2022-03-31 Diabetic foot [facility] Test 13:48:11 examination of Medicine (regime/therapy) [code = 075213334] Future Scheduled 2022-03-31 Hepatitis C screening [facility] Test 13:48:11 (procedure) [code = of Medic ine 619386273] Future Scheduled 2022-03-31 Human immunodeficiency [facility] Test 13:48:11 virus screening of Medicine (procedure) [code = 157533891] Future Scheduled 2022-03-31 ZOSTER VACCINE (1 of 2) [facility] Test 13:48:11 [code = ZOSTER VACCINE of Ga dicine (1 of 2)] Future Scheduled 2022-03-31 MEDICARE AWV (Initial) [facility] Test 13:48:11 [code = MEDICARE AWV of Medi cine (Initial)] Future Scheduled 2022-03-31 COVID-19 Vaccine (3 - Ba [facility] Test 13:48:11 Booster for Moderna of Medic ine series) [code = COVID-19 Vaccine (3 - Booster for Moderna series)] Future Scheduled 2022-03-31 BMI FOLLOW UP PLAN [facility] Test 13:48:11 [code = BMI FOLLOW UP of Med icine PLAN] Future Scheduled 2022-03-31 ANNUAL DIABETIC [facility] Test 13:48:11 RETINOPATHY SCREENING of Med icine [code = ANNUAL DIABETIC RETINOPATHY SCREENING] Future Scheduled 2022-03-31 FLU VACCINE > 6 MONTHS [facility] Test 13:48:11 [code = FLU VACCINE > 6 of M edicine MONTHS] Future Scheduled 2022-03-11 WOUND CARE INSTRUCTIONS Ordered: [facility] Test 10:09:31 [code = 62656] 03/11/2022 of Medicine Future Scheduled 2022-03-11 US ARTERIAL LEG LEFT 1 Occurrences [facility] Test 10:05:03 [code = 96677] starting of Medicine 03/11/2022 until 03/11/2023 Future Scheduled 2022-03-04 Screening for malignant [facility] Test 15:22:37 neoplasm of colon of Medicin e (procedure) [code = 135604088] Future Scheduled 2022-03-04 Pneumococcal Combined [facility] Test 15:22:37 (1 - PCV) [code = of Medicin e Pneumococcal Combined (1 - PCV)] Future Scheduled 2022-03-04 TETANUS SHOT (ADULT) [facility] Test 15:22:37 [code = TETANUS SHOT of Medi cine (ADULT)] Future Scheduled 2022-03-04 Diabetic foot [facility] Test 15:22:37 examination of Medicine (regime/therapy) [code = 990747421] Future Scheduled 2022-03-04 Hepatitis C screening [facility] Test 15:22:37 (procedure) [code = of Medic ine 266850632] Future Scheduled 2022-03-04 Human immunodeficiency [facility] Test 15:22:37 virus screening of Medicine (procedure) [code = 428918253] Future Scheduled 2022-03-04 ZOSTER VACCINE (1 of 2) [facility] Test 15:22:37 [code = ZOSTER VACCINE of Me dicine (1 of 2)] Future Scheduled 2022-03-04 MEDICARE AWV (Initial) [facility] Test 15:22:37 [code = MEDICARE AWV of Medi cine (Initial)] Future Scheduled 2022-03-04 COVID-19 Vaccine (3 - Ba [facility] Test 15:22:37 Booster for Moderna of Medic ine series) [code = COVID-19 Vaccine (3 - Booster for Moderna series)] Future Scheduled 2022-03-04 BMI FOLLOW UP PLAN [facility] Test 15:22:37 [code = BMI FOLLOW UP of Med icine PLAN] Future Scheduled 2022-03-04 ANNUAL DIABETIC [facility] Test 15:22:37 RETINOPATHY SCREENING of Med icine [code = ANNUAL DIABETIC RETINOPATHY SCREENING] Future Scheduled 2022-03-04 FLU VACCINE > 6 MONTHS [facility] Test 15:22:37 [code = FLU VACCINE > 6 of M edicine MONTHS] Future Scheduled 2022-02-18 INFLUENZA VACCINE (#1) [facility] 00:[facility]00 [code = INFLUENZA Medical Ce nter VACCINE (#1)] Future Scheduled 2022-02-18 INFLUENZA VACCINE (#1) [facility] 00:00:00 [code = INFLUENZA Medical Ce nter VACCINE (#1)] Future Scheduled 2022-02-18 INFLUENZA VACCINE (#1) [facility] 00:00:00 [code = INFLUENZA Medical Ce nter VACCINE (#1)] Future Scheduled 2022-02-18 INFLUENZA VACCINE (#1) [facility] 00:00:00 [code = INFLUENZA Medical Ce nter VACCINE (#1)] Future Scheduled 2022-02-18 INFLUENZA VACCINE (#1) [facility] 00:00:00 [code = INFLUENZA Medical Ce nter VACCINE (#1)] Future Scheduled 2022-02-18 INFLUENZA VACCINE (#1) [facility] 00:00:00 [code = INFLUENZA Medical Ce nter VACCINE (#1)] Future Scheduled 2022-02-18 INFLUENZA VACCINE (#1) [facility] 00:00:00 [code = INFLUENZA Medical Ce nter VACCINE (#1)] Future Scheduled 2022-02-18 INFLUENZA VACCINE (#1) [facility] 00:00:00 [code = INFLUENZA Medical Ce nter VACCINE (#1)] Future Scheduled 2022-02-18 INFLUENZA VACCINE (#1) [facility] 00:00:00 [code = INFLUENZA Medical Ce nter VACCINE (#1)] Future Scheduled 2022-02-18 INFLUENZA VACCINE (#1) [facility] 00:00:00 [code = INFLUENZA Medical Ce nter VACCINE (#1)] Future Scheduled 2022-02-18 INFLUENZA VACCINE (#1) [facility] 00:00:00 [code = INFLUENZA Medical Ce nter VACCINE (#1)] Future Scheduled 2022-02-18 INFLUENZA VACCINE (#1) [facility] Test 00:00:00 [code = INFLUENZA Medical Ce nter VACCINE (#1)] Future Scheduled 2022-02-09 WOUND CARE INSTRUCTIONS Ordered: [facility] Test 11:41:51 [code = 70843] 02/09/2022 of Medicine Future Scheduled 2022-01-07 TETANUS SHOT (ADULT) [facility] Test 14:53:33 [code = TETANUS SHOT of Medi cine (ADULT)] Future Scheduled 2022-01-07 Diabetic foot [facility] Test 14:53:33 examination of Medicine (regime/therapy) [code = 535980213] Future Scheduled 2022-01-07 Hepatitis C screening [facility] Test 14:53:33 (procedure) [code = of Medic ine 903741364] Future Scheduled 2022-01-07 Human immunodeficiency [facility] Test 14:53:33 virus screening of Medicine (procedure) [code = 159564309] Future Scheduled 2022-01-07 ZOSTER VACCINE (1 of 2) [facility] Test 14:53:33 [code = ZOSTER VACCINE of Me dicine (1 of 2)] Future Scheduled 2022-01-07 MEDICARE AWV (Initial) [facility] Test 14:53:33 [code = MEDICARE AWV of Medi cine (Initial)] Future Scheduled 2022-01-07 COVID-19 Vaccine (3 - Ba [facility] Test 14:53:33 Booster for Moderna of Medic ine series) [code = COVID-19 Vaccine (3 - Booster for Moderna series)] Future Scheduled 2022-01-07 BMI FOLLOW UP PLAN [facility] Test 14:53:33 [code = BMI FOLLOW UP of Med icine PLAN] Future Scheduled 2022-01-07 ANNUAL DIABETIC [facility] Test 14:53:33 RETINOPATHY SCREENING of Med icine [code = ANNUAL DIABETIC RETINOPATHY SCREENING] Future Scheduled 2022-01-07 FLU VACCINE > 6 MONTHS [facility] Test 14:53:33 [code = FLU VACCINE > 6 of M edicine MONTHS] Future Scheduled 2022-01-07 Screening for malignant [facility] Test 14:53:33 neoplasm of colon of Medicin e (procedure) [code = 572671774] Future Scheduled 2022-01-07 Pneumococcal [facility] Test 14:53:33 (1 - PCV) [code = of Medicin e Pneumococcal Combined (1 - PCV)] Future Scheduled 2021-12-08 Screening for malignant [facility] Test 11:27:09 neoplasm of colon of Medicin e (procedure) [code = 654874365] Future Scheduled 2021-12-08 Pneumococcal Combined [facility] Test 11:27:09 (1 - PCV) [code = of Medicin e Pneumococcal Combined (1 - PCV)] Future Scheduled 2021-12-08 TETANUS SHOT (ADULT) [facility] [facility] Test 11:27:09 [code = TETANUS SHOT of Medi cine (ADULT)] Future Scheduled 2021-12-08 Diabetic foot [facility] Test 11:27:09 examination of Medicine (regime/therapy) [code = [id number]] Future Scheduled 2021-12-08 Hepatitis C screening [facility] Test 11:27:09 (procedure) [code = of Medic ine [id number]] Future Scheduled 2021-12-08 Human immunodeficiency [facility] Test 11:27:09 virus screening of Medicine (procedure) [code = [id number]] Future Scheduled 2021-12-08 ZOSTER VACCINE (1 of 2) [facility] Test 11:27:09 [code = ZOSTER VACCINE of Me dicine (1 of 2)] Future Scheduled 2021-12-08 MEDICARE AWV (Initial) [facility] Test 11:27:09 [code = MEDICARE AWV of Medi cine (Initial)] Future Scheduled 2021-12-08 COVID-19 Vaccine (3 - [facility] Test 11:27:09 Booster for Moderna of Medic ine series) [code = COVID-19 Vaccine (3 - Booster for Moderna series)] Future Scheduled 2021-12-08 BMI FOLLOW UP PLAN [facility] Test 11:27:09 [code = BMI FOLLOW UP of Med icine PLAN] Future Scheduled 2021-12-08 ANNUAL DIABETIC [facility] Test 11:27:09 RETINOPATHY SCREENING of Med icine [code = ANNUAL DIABETIC RETINOPATHY SCREENING] Future Scheduled 2021-12-08 FLU VACCINE > 6 MONTHS [facility] Test 11:27:09 [code = FLU VACCINE > 6 of M edicine MONTHS] Future Scheduled 2021-08-27 Screening for malignant [facility] Test 13:25:17 neoplasm of colon of Medicin e (procedure) [code = [id number]] Future Scheduled 2021-08-27 Pneumococcal Combined [facility] Test 13:25:17 (1 of 4 - PCV13) [code of Me dicine = Pneumococcal Combined (1 of 4 - PCV13)] Future Scheduled 2021-08-27 TETANUS SHOT (ADULT) [facility] Test 13:25:17 [code = TETANUS SHOT of Medi cine (ADULT)] Future Scheduled 2021-08-27 Diabetic foot [facility] Test 13:25:17 examination of Medicine (regime/therapy) [code = [id number]] Future Scheduled 2021-08-27 Hepatitis C screening [facility] Test 13:25:17 (procedure) [code = of Medic ine [id number]] Future Scheduled 2021-08-27 Human immunodeficiency [facility] Test 13:25:17 virus screening of Medicine (procedure) [code = 397843701] Future Scheduled 2021-08-27 ZOSTER VACCINE (1 of 2) [facility] Test 13:25:17 [code = ZOSTER VACCINE of Me dicine (1 of 2)] Future Scheduled 2021-08-27 MEDICARE AWV (Initial) [facility] Test 13:25:17 [code = MEDICARE AWV of Medi cine (Initial)] Future Scheduled 2021-08-27 FLU VACCINE > 6 MONTHS [facility] Test 13:25:17 [code = FLU VACCINE > 6 of M edicine MONTHS] Future Scheduled 2021-08-27 COVID-19 Vaccine (3 - [facility] Test 13:25:17 Booster for Moderna of Medic ine series) [code = COVID-19 Vaccine (3 - Booster for Moderna series)] Future Scheduled 2021-08-27 BMI FOLLOW UP PLAN [facility] Test 13:25:17 [code = BMI FOLLOW UP of Med icine PLAN] Future Scheduled 2021-08-27 ANNUAL DIABETIC [facility] Test 13:25:17 RETINOPATHY SCREENING of Med icine [code = ANNUAL DIABETIC RETINOPATHY SCREENING] Future Scheduled 2021-08-26 US 1 Occurrences [facility] Test 15:15:47 AORTA,IVC,ILIACS,GRAFT starting of Me dicine COMPLETE DUPLEX [code = 08/26/2021 until 27445-1] 08/26/2022 Future Scheduled 2021-07-30 Screening for malignant [facility] Test 10:30:38 neoplasm of colon of Medicin e (procedure) [code = 699221238] Future Scheduled 2021-07-30 Pneumococcal Combined [facility] Test 10:30:38 (1 of 4 - PCV13) [code of Me dicine = Pneumococcal Combined (1 of 4 - PCV13)] Future Scheduled 2021-07-30 TETANUS SHOT (ADULT) [facility] Test 10:30:38 [code = TETANUS SHOT of Medi cine (ADULT)] Future Scheduled 2021-07-30 Diabetic foot [facility] Test 10:30:38 examination of Medicine (regime/therapy) [code = [id number]] Future Scheduled 2021-07-30 Hepatitis C screening [facility] Test 10:30:38 (procedure) [code = of Medic ine [id number]] Future Scheduled 2021-07-30 Human immunodeficiency [facility] Test 10:30:38 virus screening of Medicine (procedure) [code = 932992011] Future Scheduled 2021-07-30 ZOSTER VACCINE (1 of 2) [facility] Test 10:30:38 [code = ZOSTER VACCINE of Me dicine (1 of 2)] Future Scheduled 2021-07-30 MEDICARE AWV (Initial) [facility] Test 10:30:38 [code = MEDICARE AWV of Medi cine (Initial)] Future Scheduled 2021-07-30 FLU VACCINE > 6 MONTHS [facility] Test 10:30:38 [code = FLU VACCINE > 6 of M edicine MONTHS] Future Scheduled 2021-07-30 COVID-19 Vaccine (3 - [facility] Test 10:30:38 Booster for Moderna of Medic ine series) [code = COVID-19 Vaccine (3 - Booster for Moderna series)] Future Scheduled 2021-07-30 BMI FOLLOW UP PLAN [facility] Test 10:30:38 [code = BMI FOLLOW UP of Med icine PLAN] Future Scheduled 2021-07-30 ANNUAL DIABETIC [facility] Test 10:30:38 RETINOPATHY SCREENING of Med icine [code = ANNUAL DIABETIC RETINOPATHY SCREENING] Future Scheduled 2021-07-29 US ARTERIAL LEG RIGHT 1 Occurrences [facility] Test 11:05:32 [code = [id number]] starting of Medicine 07/29/2021 until 07/29/2022 Future Scheduled 2021-06-[address] [facility] Test 00:00:00 (12+) [code = Medical Center DEPRESSION SCREENING (12+)] Future Scheduled 2021-06-[address] [facility] Test 00:00:00 (12+) [code = Medical Center DEPRESSION SCREENING (12+)] Future Scheduled 2021-06-[address] [facility] Test 00:00:00 (12+) [code = Medical Center DEPRESSION SCREENING (12+)] Future Scheduled 2021-06-[address] [facility] Test 00:00:00 (12+) [code = Medical Center DEPRESSION SCREENING (12+)] Future Scheduled 2021-06-[address] [facility] Test 00:00:00 (12+) [code = Medical Center DEPRESSION SCREENING (12+)] Future Scheduled 2021-06-10 Screening for malignant [facility] Test 08:03:39 neoplasm of colon of Medicin e (procedure) [code = [id number]] Future Scheduled 2021-06-10 Pneumococcal Combined [facility] Test 08:03:39 (1 of 4 - PCV13) [code of Me dicine = Pneumococcal Combined (1 of 4 - PCV13)] Future Scheduled 2021-06-10 TETANUS SHOT (ADULT) [facility] Test 08:03:39 [code = TETANUS SHOT of Medi cine (ADULT)] Future Scheduled 2021-06-10 Diabetic foot [facility] Test 08:03:39 examination of Medicine (regime/therapy) [code = 489962462] Future Scheduled 2021-06-10 Hepatitis C screening [facility] Test 08:03:39 (procedure) [code = of Medic ine 325344433] Future Scheduled 2021-06-10 Human immunodeficiency [facility] Test 08:03:39 virus screening of Medicine (procedure) [code = 716634767] Future Scheduled 2021-06-10 ZOSTER VACCINE (1 of 2) [facility] Test 08:03:39 [code = ZOSTER VACCINE of Me dicine (1 of 2)] Future Scheduled 2021-06-10 MEDICARE AWV (Initial) [facility] Test 08:03:39 [code = MEDICARE AWV of Medi cine (Initial)] Future Scheduled 2021-06-10 FLU VACCINE > 6 MONTHS [facility] Test 08:03:39 [code = FLU VACCINE > 6 of M edicine MONTHS] Future Scheduled 2021-06-10 COVID-19 Vaccine (3 - Ba [facility] Test 08:03:39 Booster for Moderna of Medic ine series) [code = COVID-19 Vaccine (3 - Booster for Moderna series)] Future Scheduled 2021-06-10 ANNUAL DIABETIC [facility] Test 08:03:39 RETINOPATHY SCREENING of Med icine [code = ANNUAL DIABETIC RETINOPATHY SCREENING] Future Scheduled 2021-06-10 BMI FOLLOW UP PLAN [facility] Test 08:03:39 [code = BMI FOLLOW UP of Med icine PLAN] Future Scheduled 2021-01-24 COVID-19 VACCINE (3 - [facility]00 Booster for Moderna [facility] series) [code = COVID-19 VACCINE (3 - Booster for Moderna series)] Future Scheduled 2021-01-24 COVID-19 VACCINE (3 - [facility] Test 00:00:00 Booster for Moderna [facility] series) [code = COVID-19 VACCINE (3 - Booster for Moderna series)] Future Scheduled 2021-01-24 COVID-19 VACCINE (3 - [facility] Test 00:00:00 Booster for Moderna [facility] series) [code = COVID-19 VACCINE (3 - Booster for Moderna series)] Future Scheduled 2021-01-24 COVID-19 VACCINE (3 - [facility] Test 00:00:00 Booster for Moderna [facility] series) [code = COVID-19 VACCINE (3 - Booster for Moderna series)] Future Scheduled 2021-01-24 COVID-19 VACCINE (3 - [facility] Test 00:00:00 Booster for Moderna [facility] series) [code = COVID-19 VACCINE (3 - Booster for Moderna series)] Future Scheduled 2021-01-24 COVID-19 VACCINE (3 - [facility] Test 00:00:00 Booster for Moderna [facility] series) [code = COVID-19 VACCINE (3 - Booster for Moderna series)] Future Scheduled 2021-01-24 COVID-19 VACCINE (3 - [facility] Test 00:00:00 Booster for Moderna [facility] series) [code = COVID-19 VACCINE (3 - Booster for Moderna series)] Future Scheduled 2021-01-24 COVID-19 VACCINE (3 - [facility] Test 00:00:00 Booster for Moderna [facility] series) [code = COVID-19 VACCINE (3 - Booster for Moderna series)] Future Scheduled 2021-01-24 COVID-19 VACCINE (3 - [facility] Test 00:00:00 Booster for Moderna [facility] series) [code = COVID-19 VACCINE (3 - Booster for Moderna series)] Future Scheduled 2021-01-24 COVID-19 VACCINE (3 - [facility] Test 00:00:00 Booster for Moderna [facility] series) [code = COVID-19 VACCINE (3 - Booster for Moderna series)] Future Scheduled 2020-10-19 COVID-19 VACCINE (3 - [facility] Test 00:00:00 Booster for Moderna [facility] series) [code = COVID-19 VACCINE (3 - Booster for Moderna series)] Future Scheduled 2020-10-19 COVID-19 VACCINE (3 - [facility] Test 00:00:00 Booster for Moderna [facility] series) [code = COVID-19 VACCINE (3 - Booster for Moderna series)] Future Scheduled 2020-09-[address] [facility] Test 00:00:00 measurement (procedure) [facility] [code = 69024826] Future Scheduled 2020-09-[address] [facility] Test 00:00:00 measurement (procedure) [facility] [code = 74970242] Future Scheduled 2020-09-[address] [facility] Test 00:00:00 measurement (procedure) [facility] [code = 31794348] Future Scheduled 2020-09-[address] [facility] Test 00:00:00 measurement (procedure) [facility] [code = 42555343] Future Scheduled 2020-09-[address] [facility] Test 00:00:00 measurement (procedure) [facility] [code = 83197623] Future Scheduled 2020-09-[address] [facility] Test 00:00:00 measurement (procedure) [facility] [code = 07649204] Future Scheduled 2020-09-[address] [facility] Test 00:00:00 measurement (procedure) [facility] [code = 88822108] Future Scheduled 2020-09-[address] [facility] Test 00:00:00 measurement (procedure) [facility] [code = 36796371] Future Scheduled 2020-09-[address] [facility]00[facility]00 [facility] [[facility] = 73369639] Future Scheduled 2020-09-[address] [facility] 00[facility]00:00 [facility]procedure[facility] [code = 60587524] Future Scheduled 2020-09-[address] [facility] 00[facility]00:00 [facility]procedure[facility] [code = 79033391] Future Scheduled 2020-09-[address] [facility] 00[facility]00:00 [facility] (procedure[facility] [code = 81454873] Future Scheduled 2017-03-[address] [facility] Test 00:00:00 WELLNESS (YEAR 2 or Medical Center FIRST YEAR if no IPPE) [code = MEDICARE ANNUAL WELLNESS (YEAR 2 or FIRST YEAR if no IPPE)] Future Scheduled 2017-03-[address] [facility] Test 00:00:00 WELLNESS (YEAR 2 or Medical Center FIRST YEAR if no IPPE) [code = MEDICARE ANNUAL WELLNESS (YEAR 2 or FIRST YEAR if no IPPE)] Future Scheduled 2017-03-[address] [facility] Test 00:00:00 WELLNESS (YEAR 2 or Medical Center FIRST YEAR if no IPPE) [code = MEDICARE ANNUAL WELLNESS (YEAR 2 or FIRST YEAR if no IPPE)] Future Scheduled 2017-03-[address] [facility] Test 00:00:00 WELLNESS (YEAR 2 or Medical Center FIRST YEAR if no IPPE) [code = MEDICARE ANNUAL WELLNESS (YEAR 2 or FIRST YEAR if no IPPE)] Future Scheduled 2017-03-[address] [facility] Test 00:00:00 WELLNESS (YEAR 2 or Medical Center FIRST YEAR if no IPPE) [code = MEDICARE ANNUAL WELLNESS (YEAR 2 or FIRST YEAR if no IPPE)] Future Scheduled 2017-03-[address] [facility] Test 00:00:00 WELLNESS (YEAR 2 or Medical Center FIRST YEAR if no IPPE) [code = MEDICARE ANNUAL WELLNESS (YEAR 2 or FIRST YEAR if no IPPE)] Future Scheduled 2017-03-[address] [facility] Test 00:00:00 WELLNESS (YEAR 2 or Medical Center FIRST YEAR if no IPPE) [code = MEDICARE ANNUAL WELLNESS (YEAR 2 or FIRST YEAR if no IPPE)] Future Scheduled 2017-03-[address] [facility] Test 00:00:00 WELLNESS (YEAR 2 or Medical Center FIRST YEAR if no IPPE) [code = MEDICARE ANNUAL WELLNESS (YEAR 2 or FIRST YEAR if no IPPE)] Future Scheduled 2017-03-[address] [facility] Test 00:00:00 WELLNESS (YEAR 2 or Medical Center FIRST YEAR if no IPPE) [code = MEDICARE ANNUAL WELLNESS (YEAR 2 or FIRST YEAR if no IPPE)] Future Scheduled 2017-03-[address] [facility] Test 00:00:00 WELLNESS (YEAR 2 or Medical Center FIRST YEAR if no IPPE) [code = MEDICARE ANNUAL WELLNESS (YEAR 2 or FIRST YEAR if no IPPE)] Future Scheduled 2017-03-[address] [facility] Test 00:00:00 WELLNESS (YEAR 2 or Medical Center FIRST YEAR if no IPPE) [code = MEDICARE ANNUAL WELLNESS (YEAR 2 or FIRST YEAR if no IPPE)] Future Scheduled 2017-03-[address] [facility] Test 00:00:00 WELLNESS (YEAR 2 or Medical Center FIRST YEAR if no IPPE) [code = MEDICARE ANNUAL WELLNESS (YEAR 2 or FIRST YEAR if no IPPE)] Future Scheduled 2014-10-[address] [facility] Test 00:00:00 0-64 YRS (2 - PCV) Medical C enter [code = PNEUMOCOCCAL VACCINE 0-64 YRS (2 - PCV)] Future Scheduled 2014-10-[address] [facility] Test 00:00:00 0-64 YRS (2 - PCV) Medical C enter [code = PNEUMOCOCCAL VACCINE 0-64 YRS (2 - PCV)] Future Scheduled 2014-10-[address] [facility] Test 00:00:00 0-64 YRS (2 - PCV) Medical C enter [code = PNEUMOCOCCAL VACCINE 0-64 YRS (2 - PCV)] Future Scheduled 2014-10-[address] [facility] Test 00:00:00 0-64 YRS (2 - PCV) Medical C enter [code = PNEUMOCOCCAL VACCINE 0-64 YRS (2 - PCV)] Future Scheduled 2014-10-[address] [facility] Test 00:00:00 0-64 YRS (2 - PCV) Medical C enter [code = PNEUMOCOCCAL VACCINE 0-64 YRS (2 - PCV)] Future Scheduled 2014-10-[address] [facility] Test 00:00:00 0-64 YRS (2 - PCV) Medical C enter [code = PNEUMOCOCCAL VACCINE 0-64 YRS (2 - PCV)] Future Scheduled 2014-10-[address] [facility] Test 00:00:00 0-64 YRS (2 - PCV) Medical C enter [code = PNEUMOCOCCAL VACCINE 0-64 YRS (2 - PCV)] Future Scheduled 2014-10-[address] [facility] Test 00:00:00 0-64 YRS (2 - PCV) Medical C enter [code = PNEUMOCOCCAL VACCINE 0-64 YRS (2 - PCV)] Future Scheduled 2014-10-[address] [facility] Test 00:00:00 0-64 YRS (2 - PCV) Medical C enter [code = PNEUMOCOCCAL VACCINE 0-64 YRS (2 - PCV)] Future Scheduled 2014-10-[address] [facility] Test 00:00:00 0-64 YRS (2 - PCV) Medical C enter [code = PNEUMOCOCCAL VACCINE 0-64 YRS (2 - PCV)] Future Scheduled 2014 SHINGLES VACCINES ([address] [facility] Test 00:00:00 2) [code = SHINGLES Medical Center VACCINES (1 of 2)] Future Scheduled 2014 SHINGLES VACCINES ([address] [facility] Test 00:00:00 2) [code = SHINGLES Medical Center VACCINES (1 of 2)] Future Scheduled 2014 SHINGLES VACCINES ([address] [facility] Test 00:00:00 2) [code = SHINGLES Medical Center VACCINES (1 of 2)] Future Scheduled 2014 SHINGLES VACCINES ([address] [facility] Test 00:00:00 2) [code = SHINGLES Medical Center VACCINES (1 of 2)] Future Scheduled 2014 SHINGLES VACCINES ([address] [facility] Test 00:00:00 2) [code = SHINGLES Medical Center VACCINES (1 of 2)] Future Scheduled 2014 SHINGLES VACCINES ([address] [facility] Test 00:00:00 2) [code = SHINGLES Medical Center VACCINES (1 of 2)] Future Scheduled 2014 SHINGLES VACCINES ([address] [facility] Test 00:00:00 2) [code = SHINGLES Medical Center VACCINES (1 of 2)] Future Scheduled 2014 SHINGLES VACCINES ([address] [facility] Test 00:00:00 2) [code = SHINGLES Medical Center VACCINES (1 of 2)] Future Scheduled 2014 SHINGLES VACCINES ([address] [facility] Test 00:00:00 2) [code = SHINGLES Medical Center VACCINES (1 of 2)] Future Scheduled 2014 SHINGLES VACCINES ([address] [facility] Test 00:00:00 2) [code = SHINGLES Medical Center VACCINES (1 of 2)] Future Scheduled 2014 SHINGLES VACCINES ([address] [facility] Test 00:00:00 2) [code = SHINGLES Medical Center VACCINES (1 of 2)] Future Scheduled 2014 SHINGLES VACCINES ([address] [facility] Test 00:00:00 2) [code = SHINGLES Medical Center VACCINES (1 of 2)] Future Scheduled 1999 Lipid panel (procedure) [facility] Test 00:00:00 [code = 85598171] Medical Ce nter Future Scheduled 1999 Lipid panel (procedure) [facility] Test 00:00:00 [code = 30783198] Medical Ce nter Future Scheduled 1999 Lipid panel (procedure) [facility] Test 00:00:00 [code = 75987392] Medical Ce nter Future Scheduled 1999 Lipid panel (procedure) [facility] Test 00:00:00 [code = 10851364] Medical Ce nter Future Scheduled 1999 Lipid panel (procedure) [facility] Test 00:00:00 [code = 03774783] Medical Ce nter Future Scheduled 1999 Lipid panel (procedure) [facility] Test 00:00:00 [code = 37564797] Medical Ce nter Future Scheduled 1999 Lipid panel (procedure) [facility] Test 00:00:00 [code = 00981095] Medical Ce nter Future Scheduled 1999 Lipid panel (procedure) [facility] Test 00:00:00 [code = 75252655] Medical Ce nter Future Scheduled 1999 Lipid panel (procedure) [facility] Test 00:00:00 [code = 48605361] Medical Ce nter Future Scheduled 1999 Lipid panel (procedure) [facility] Test 00:00:00 [code = 70275773] Medical Ce nter Future Scheduled 1999 Lipid panel (procedure) [facility] Test 00:00:00 [code = 73726510] Medical Ce nter Future Scheduled 1999 Lipid panel (procedure) [facility] Test 00:00:00 [code = 01631204] Medical Ce nter Future Scheduled 1983 DTAP/TDAP/TD VACCINES [facility] Test 00:00:00 (1 - Tdap) [code = Medical C enter DTAP/TDAP/TD VACCINES (1 - Tdap)] Future Scheduled 1983 DTAP/TDAP/TD VACCINES [facility] Test 00:00:00 (1 - Tdap) [code = Medical C enter DTAP/TDAP/TD VACCINES (1 - Tdap)] Future Scheduled 1983 DTAP/TDAP/TD VACCINES [facility] Test 00:00:00 (1 - Tdap) [code = Medical C enter DTAP/TDAP/TD VACCINES (1 - Tdap)] Future Scheduled 1983 DTAP/TDAP/TD VACCINES [facility] Test 00:00:00 (1 - Tdap) [code = Medical C enter DTAP/TDAP/TD VACCINES (1 - Tdap)] Future Scheduled 1983 DTAP/TDAP/TD VACCINES [facility] Test 00:00:00 (1 - Tdap) [code = Medical C enter DTAP/TDAP/TD VACCINES (1 - Tdap)] Future Scheduled 1983 DTAP/TDAP/TD VACCINES [facility] Test 00:00:00 (1 - Tdap) [code = Medical C enter DTAP/TDAP/TD VACCINES (1 - Tdap)] Future Scheduled 1983 DTAP/TDAP/TD VACCINES [facility] 00:00:00 (1 - Tdap) [code = Medical C enter DTAP/TDAP/TD VACCINES (1 - Tdap)] Future Scheduled 1983 DTAP/TDAP/TD VACCINES [facility] Test 00:00:00 (1 - Tdap) [code = Medical C enter DTAP/TDAP/TD VACCINES (1 - Tdap)] Future Scheduled 1983 DTAP/TDAP/TD VACCINES [facility] 00:00:00 (1 - Tdap) [code = Medical C enter DTAP/TDAP/TD VACCINES (1 - Tdap)] Future Scheduled 1983 DTAP/TDAP/TD VACCINES [facility] 00:00:00 (1 - Tdap) [code = Medical C enter DTAP/TDAP/TD VACCINES (1 - Tdap)] Future Scheduled 1983 DTAP/TDAP/TD VACCINES [facility] Test 00:00:00 (1 - Tdap) [code = Medical C enter DTAP/TDAP/TD VACCINES (1 - Tdap)] Future Scheduled 1983 DTAP/TDAP/TD VACCINES [facility] 00:00:00 (1 - Tdap) [code = Medical C enter DTAP/TDAP/TD VACCINES (1 - Tdap)] Future Scheduled 1982 HEPATITIS C SCREENING [facility] 00:00:00 [code = HEPATITIS C Medical Center SCREENING] Future Scheduled 1982 HEPATITIS C [facility]CRE[facility]ING [facility] 00:00:00 [code = HEPATITIS C Medical Center SCREENING] Future Scheduled 1982 HEPATITIS C [facility]ING [facility] 00:00:00 [code = HEPATITIS C Medical Center SCREENING] Future Scheduled 1982 HEPATITIS C [facility]ING [facility] 00:00:00 [code = HEPATITIS C Medical Center SCREENING] Future Scheduled 1982 HEPATITIS C [facility]ING [facility] 00:00:00 [code = HEPATITIS C Medical Center SCREENING] Future Scheduled 1982 HEPATITIS C [facility]ING [facility] 00:00:00 [code = HEPATITIS C Medical Center SCREENING] Future Scheduled 1982 HEPATITIS C [facility]ING [facility] 00:00:00 [code = HEPATITIS C Medical Center SCREENING] Future Scheduled 1982 HEPATITIS C [facility] 00:00:00 [code = HEPATITIS C Medical Center SCREENING] Future Scheduled 1982 HEPATITIS C [facility] 00:00:00 [code = HEPATITIS C Medical Center SCREENING] Future Scheduled 1982 HEPATITIS C [facility]ING [facility] 00:00:00 [code = HEPATITIS C Medical Center SCREENING] Future Scheduled 1982 HEPATITIS C [facility]ING [facility] 00:00:00 [code = HEPATITIS C Medical Center SCREENING] Future Scheduled 1982 HEPATITIS C [facility]CRE[facility]ING [facility] 00:00:00 [code = HEPATITIS C Medical Center SCREENING] Future Scheduled 1974 DIABETIC EYE EXAM [code [facility] Test 00:00:00 = DIABETIC EYE EXAM] Medical Center Future Scheduled [address] [facility] 00:[facility]:00 examination Medical Center (regime/therapy) [code = 152250667] Future Scheduled 1974 Urine screening for [facility] Test 00:00:00 protein (procedure) Medical Center [code = 293215259] Future Scheduled 1974 DIABETIC EYE EXAM [code [facility] Test 00:00:00 = DIABETIC EYE EXAM] Medical Center Future Scheduled [address] [facility] 00:[facility]:00 examination Medical Center (regime/therapy) [code = 611861659] Future Scheduled 1974 Urine screening for [facility] Test 00:00:00 protein (procedure) Medical Center [code = 965517563] Future Scheduled 1974 DIABETIC EYE EXAM [code [facility] Test 00:00:00 = DIABETIC EYE EXAM] Medical Center Future Scheduled [address] [facility] 00:00:00 examination Medical Center (regime/therapy) [code = 175047021] Future Scheduled 1974 Urine screening for [facility] Test 00:00:00 protein (procedure) Medical Center [code = 489836306] Future Scheduled 1974 DIABETIC EYE EXAM [code [facility] Test 00:00:00 = DIABETIC EYE EXAM] Medical Center Future Scheduled [address] [facility] 00:00:00 examination Medical Center (regime/therapy) [code = 490911973] Future Scheduled 1974 Urine screening for [facility] Test 00:00:00 protein (procedure) Medical Center [code = 962190687] Future Scheduled 1974 DIABETIC EYE EXAM [code [facility] Test 00:00:00 = DIABETIC EYE EXAM] Medical Center Future Scheduled [address] [facility] 00:00:00 examination Medical Center (regime/therapy) [code = 843534467] Future Scheduled 1974 Urine screening for [facility] Test 00:00:00 protein (procedure) Medical Center [code = 289411821] Future Scheduled 1974 DIABETIC EYE EXAM [code [facility] Test 00:00:00 = DIABETIC EYE EXAM] Medical Center Future Scheduled [address] [facility] 00:00:00 examination Medical Center (regime/therapy) [code = 458390321] Future Scheduled 1974 Urine screening for [facility] Test 00:00:00 protein (procedure) Medical Center [code = 577804554] Future Scheduled 1974 DIABETIC EYE EXAM [code [facility] Test 00:00:00 = DIABETIC EYE EXAM] Medical Center Future Scheduled [address] [facility] (regime/therapy) [code = 011844892] Future Scheduled 1974 Urine screening for [facility] 00:00:00 protein (procedure) [facility] Center [code = 415575071] Future Scheduled 1974 DIABETIC EYE EXAM [code [facility] 00:00:00 = DIABETIC EYE EXAM] [facility] Center Future Scheduled [address] [facility] examination [facility] Center (regime/therapy) [code = 939839203] Future Scheduled 1974 Urine screening for [facility] 00:00:00 protein (procedure) [facility] Center [code = 893761042] Future Scheduled 1974 DIABETIC EYE EXAM [code [facility] 00:00:00 = DIABETIC EYE EXAM] [facility] Center Future Scheduled [address] [facility] 00[facility] examination [facility] Center (regime/therapy) [code = 462442170] Future Scheduled 1974 Urine screening for [facility] Test 00:00:00 protein (procedure) [facility] Center [code = 402554425] Future Scheduled 1974 DIABETIC EYE EXAM [code [facility] 00:00:00 = DIABETIC EYE EXAM] Medical Center Future Scheduled [address] [facility] 00:[facility]:00 examination [facility] Center (regime/therapy) [code = 545660419] Future Scheduled 1974 Urine screening for [facility] Test 00:00:00 protein (procedure) [facility] Center [code = 315974908] Future Scheduled 1974 DIABETIC EYE EXAM [code [facility] 00:00:00 = DIABETIC EYE EXAM] Medical Center Future Scheduled [address] [facility] 00:[facility]:00 examination [facility] Center (regime/therapy) [code = 090144198] Future Scheduled 1974 Urine screening for [facility] 00:00:00 protein (procedure) [facility] Center [code = 086419274] Future Scheduled 1974 DIABETIC EYE EXAM [code [facility] 00:00:00 = DIABETIC EYE EXAM] Medical Center Future Scheduled [address] [facility] 00:[facility]:00 examination [facility] Center (regime/therapy) [code = 589578533] Future Scheduled 1974 Urine screening for [facility] 00:00:00 protein (procedure) Medical Center [code = 237423044] Future Scheduled 1964 CT Colonography (combo) [facility] Test 00:00:00 [code = CT Colonography [facility] (combo)] Future Scheduled 1964 Screening for malignant [facility] Test 00:00:00 neoplasm of colon Medical Ce nter (procedure) [code = 747895005] Future Scheduled 1964 Screening for malignant [facility] Test 00:00:00 neoplasm of colon Medical Ce nter (procedure) [code = 087834119] Future Scheduled 1964 Screening for malignant [facility] Test 00:00:00 neoplasm of colon Medical Ce nter (procedure) [code = 301985845] Future Scheduled 1964 Screening for malignant [facility] Test 00:00:00 neoplasm of colon Medical Ce nter (procedure) [code = 137922954] Future Scheduled 1964 Sigmoidoscopy [code = [facility]] [facility] r Future Scheduled 1964 CT Colonography (combo) [facility] 00:00:00 [code = CT [facility] Future Scheduled 1964 Screening for malignant [facility] Test 00:00:00 neoplasm of colon Medical Ce nter (procedure) [code = 343734074] Future Scheduled 1964 Screening for malignant [facility] Test 00:00:00 neoplasm of colon Medical Ce nter (procedure) [code = 738075731] Future Scheduled 1964 Screening for malignant [facility] Test 00:00:00 neoplasm of colon Medical Ce nter (procedure) [code = 363763414] Future Scheduled 1964 Screening for malignant [facility] Test 00:00:00 neoplasm of colon Medical Ce nter (procedure) [code = 184038860] Future Scheduled 1964 Sigmoidoscopy [code [facility] S[facility]oidoscopy] [facility] Lacy lopez Future Scheduled 1964 CT Colonography (combo) [facility] Test 00:00:00 [code = CT Colonography [facility] (combo)] Future Scheduled 1964 Screening for malignant [facility] Test 00:00:00 neoplasm of colon Medical Ce nter (procedure) [code = 106125673] Future Scheduled 1964 Screening for malignant [facility] Test 00:00:00 neoplasm of colon Medical Ce nter (procedure) [code = 066582049] Future Scheduled 1964 Screening for malignant [facility] Test 00:00:00 neoplasm of colon Medical Ce nter (procedure) [code = 095160593] Future Scheduled 1964 Screening for malignant [facility] Test 00:00:00 neoplasm of colon Medical Ce nter (procedure) [code = 816159549] Future Scheduled 1964 Sigmoidoscopy [code [facility] 00[facility] S[facility]] [facility] Lacy lopez Future Scheduled 1964 CT Colonography (combo) [facility] 00:00:00 [code = CT Colonography [facility] (combo)] Future Scheduled 1964 Screening for malignant [facility] Test 00:00:00 neoplasm of colon Medical Ce nter (procedure) [code = 125054699] Future Scheduled 1964 Screening for malignant [facility] Test 00:00:00 neoplasm of colon Medical Ce nter (procedure) [code = 723467250] Future Scheduled 1964 Screening for malignant [facility] Test 00:00:00 neoplasm of colon Medical Ce nter (procedure) [code = 698772753] Future Scheduled 1964 Screening for malignant [facility] Test 00:00:00 neoplasm of colon Medical Ce nter (procedure) [code = 426090955] Future Scheduled 1964 Sigmoidoscopy [code [facility] 00[facility]] [facility] Cent[facility] r Future Scheduled 1964 CT Colonography (combo) [facility] 00:00:00 [code = CT Colonography [facility] (combo)] Future Scheduled 1964 Screening for malignant [facility] Test 00:00:00 neoplasm of colon Medical Ce nter (procedure) [code = 155871646] Future Scheduled 1964 Screening for malignant [facility] Test 00:00:00 neoplasm of colon Medical Ce nter (procedure) [code = 838399253] Future Scheduled 1964 Screening for malignant [facility] Test 00:00:00 neoplasm of colon Medical Ce nter (procedure) [code = 801862529] Future Scheduled 1964 Screening for malignant [facility] Test 00:00:00 neoplasm of colon Medical Ce nter (procedure) [code = 513721707] Future Scheduled 1964 Sigmoidoscopy [code [facility] 00:[facility] S[facility]oidoscopy] Medical Cent[facility] r Future Scheduled 1964 CT Colonography (combo) [facility] 00:00:00 [code = CT [facility])] Future Scheduled 1964 Screening for malignant [facility] Test 00:00:00 neoplasm of colon Medical Ce nter (procedure) [code = 237465389] Future Scheduled 1964 Screening for malignant [facility] Test 00:00:00 neoplasm of colon Medical Ce nter (procedure) [code = 239891656] Future Scheduled 1964 Screening for malignant [facility] Test 00:00:00 neoplasm of colon Medical Ce nter (procedure) [code = 208727028] Future Scheduled 1964 Screening for malignant [facility] Test 00:00:00 neoplasm of colon Medical Ce nter (procedure) [code = 549462219] Future Scheduled 1964 Sigmoidoscopy [code [facility] 00:[facility] Sigmoidoscopy] Medical Cente r Future Scheduled 1964 CT Colonography (combo) [facility] 00:00:00 [code = CT [facility] Future Scheduled 1964 Screening for malignant [facility] Test 00:00:00 neoplasm of colon Medical Ce nter (procedure) [code = 838190490] Future Scheduled 1964 Screening for malignant [facility] Test 00:00:00 neoplasm of colon Medical Ce nter (procedure) [code = 479481967] Future Scheduled 1964 Screening for malignant [facility] Test 00:00:00 neoplasm of colon Medical Ce nter (procedure) [code = 559291957] Future Scheduled 1964 Screening for malignant [facility] Test 00:00:00 neoplasm of colon Medical Ce nter (procedure) [code = 339602357] Future Scheduled 1964 Sigmoidoscopy [code [facility] 00:[facility] S[facility]oscopy] [facility] Scheduled 1964 CT Colonography (combo) [facility] 00:00:00 [code = CT [facility] ([facility])] Future Scheduled 1964 Screening for malignant [facility] Test 00:00:00 neoplasm of colon Medical Ce nter (procedure) [code = 042109959] Future Scheduled 1964 Screening for malignant [facility] Test 00:00:00 neoplasm of colon Medical Ce nter (procedure) [code = 955282876] Future Scheduled 1964 Screening for malignant [facility] Test 00:00:00 neoplasm of colon Medical Ce nter (procedure) [code = 213114169] Future Scheduled 1964 Screening for malignant [facility] Test 00:00:00 neoplasm of colon Medical Ce nter (procedure) [code = 873437639] Future Scheduled 1964 Sigmoidoscopy [code [facility] 00:[facility] Sigmoidoscopy] Medical Lacy r Future Scheduled 1964 CT Colonography (combo) [facility] 00:00:00 [code = CT Colonography [facility] (combo)] Future Scheduled 1964 Screening for malignant [facility] Test 00:00:00 neoplasm of colon Medical Ce nter (procedure) [code = 705959700] Future Scheduled 1964 Screening for malignant [facility] Test 00:00:00 neoplasm of colon Medical Ce nter (procedure) [code = 193888841] Future Scheduled 1964 Screening for malignant [facility] Test 00:00:00 neoplasm of colon Medical Ce nter (procedure) [code = 924904422] Future Scheduled 1964 Screening for malignant [facility] Test 00:00:00 neoplasm of colon Medical Ce nter (procedure) [code = 260381927] Future Scheduled 1964 Sigmoidoscopy [code [facility] 00:[facility] Sigmoidoscopy] Medical Lacy r Future Scheduled 1964 CT Colonography (combo) [facility] Test 00:00:00 [code = CT Colonography [facility] (combo)] Future Scheduled 1964 Screening for malignant [facility] Test 00:00:00 neoplasm of colon Medical Ce nter (procedure) [code = 422366707] Future Scheduled 1964 Screening for malignant [facility] Test 00:00:00 neoplasm of colon Medical Ce nter (procedure) [code = 122010786] Future Scheduled 1964 Screening for malignant [facility] Test 00:00:00 neoplasm of colon Medical Ce nter (procedure) [code = 095503124] Future Scheduled 1964 Screening for malignant [facility] Test 00:00:00 neoplasm of colon Medical Ce nter (procedure) [code = 373156566] Future Scheduled 1964 Sigmoidoscopy [code [facility] 00:[facility] Sigmoidoscopy] Medical Moisese r Future Scheduled 1964 CT Colonography (combo) [facility] Test 00:00:00 [code = CT Colonography [facility] (combo)] Future Scheduled 1964 Screening for malignant [facility] Test 00:00:00 neoplasm of colon Medical Ce nter (procedure) [code = 021664614] Future Scheduled 1964 Screening for malignant [facility] Test 00:00:00 neoplasm of colon Medical Ce nter (procedure) [code = 743393506] Future Scheduled 1964 Screening for malignant [facility] Test 00:00:00 neoplasm of colon Medical Ce nter (procedure) [code = 210033699] Future Scheduled 1964 Screening for malignant [facility] Test 00:00:00 neoplasm of colon Medical Ce nter (procedure) [code = 288903516] Future Scheduled 1964 Sigmoidoscopy [code [facility] 00:[facility] S[facility]oidoscopy] [facility] Future Scheduled 1964 CT Colonography (combo) [facility] 00:00:00 [code = CT Colonography [facility] (combo)] Future Scheduled 1964 Screening for malignant [facility] Test 00:00:00 neoplasm of colon Medical Ce nter (procedure) [code = 569959847] Future Scheduled 1964 Screening for malignant [facility] Test 00:00:00 neoplasm of colon Medical Ce nter (procedure) [code = 350462975] Future Scheduled 1964 Screening for malignant [facility] Test 00:00:00 neoplasm of colon Medical Ce nter (procedure) [code = 215277160] Future Scheduled 1964 Screening for malignant [facility] Test 00:00:00 neoplasm of colon Medical Ce nter (procedure) [code = 752355935] Future Scheduled 1964 Sigmoidoscopy [code [facility] 00:[facility] S[facility]oidoscopy] Medical Cente r Future Scheduled COLON CANCER SCREENING: [facility] Test COLONOSCOPY [code = of Medic ine COLON CANCER SCREENING: COLONOSCOPY] Future Scheduled COVID-19 Vaccine [facility] Test Evaluation [code = of Medici ne COVID-19 Vaccine Evaluation] Future Scheduled TETANUS SHOT (ADULT) [place] [facility] [employer] Test [code = TETANUS SHOT of Medi cine (ADULT)] Future Scheduled Diabetic foot [employer] [facility] examination of Medicine (regime/therapy) [code = 140039672] Future Scheduled HEPATITIS C SCREENING [employer] Test [code = HEPATITIS C of Medic ine SCREENING] Future Scheduled HIV SCREENING [code = [employer] [facility] HIV SCREENING] of Medicine Future Scheduled ZOSTER VACCINE (1 of 2) [employer] Test [code = ZOSTER VACCINE of Me dicine (1 of 2)] Future Scheduled MEDICARE AWV (Initial) [employer] [facility] [code = MEDICARE AWV of Medi cine (Initial)] Future Scheduled FLU VACCINE > 6 MONTHS [employer] Test [code = FLU VACCINE > 6 of M edicine MONTHS] Future Scheduled ANNUAL DIABETIC [facility] C [facility]lege Test RETINOPATHY SCREENING of Med icine [code = ANNUAL DIABETIC RETINOPATHY SCREENING] Future Scheduled BMI FOLLOW UP PLAN [employer] Test [code = BMI FOLLOW UP of Med icine PLAN] Future Scheduled Screening for malignant [employer] Test neoplasm of colon of Medicin e (procedure) [code = 378189961] Future Scheduled TETANUS SHOT (ADULT) [place] [employer] Test [code = TETANUS SHOT of Medi cine (ADULT)] Future Scheduled Diabetic foot [employer] [facility] examination of Medicine (regime/therapy) [code = 376031795] Future Scheduled Hepatitis C screening [employer] Test (procedure) [code = of Medic ine 850029534] Future Scheduled Human immunodeficiency [employer] Test virus screening of Medicine (procedure) [code = 837727797] Future Scheduled ZOSTER VACCINE (1 of 2) [employer] Test [code = ZOSTER VACCINE of Me dicine (1 of 2)] Future Scheduled MEDICARE AWV (Initial) [employer] Test [code = MEDICARE AWV of Medi cine (Initial)] Future Scheduled FLU VACCINE > 6 MONTHS [employer] Test [code = FLU VACCINE > 6 of M edicine MONTHS] Future Scheduled ANNUAL DIABETIC [employer] [facility] RETINOPATHY SCREENING of Med icine [code = ANNUAL DIABETIC RETINOPATHY SCREENING] Future Scheduled BMI FOLLOW UP PLAN [employer] Test [code = BMI FOLLOW UP of Med icine PLAN] Future Scheduled COLON CANCER SCREENING: [facility] Test COLONOSCOPY [code = of Medic ine COLON CANCER SCREENING: COLONOSCOPY] Future Scheduled TETANUS SHOT (ADULT) [place] [employer] Test [code = TETANUS SHOT of Medi cine (ADULT)] Future Scheduled Diabetic foot [employer] [facility] examination of Medicine (regime/therapy) [code = 165274597] Future Scheduled ANNUAL DIABETIC [employer] [facility] RETINOPATHY SCREENING of Med icine [code = ANNUAL DIABETIC RETINOPATHY SCREENING] Future Scheduled HEPATITIS C SCREENING [employer] Test [code = HEPATITIS C of Medic ine SCREENING] Future Scheduled HIV SCREENING [code = [employer] [facility] HIV SCREENING] of Medicine Future Scheduled ZOSTER VACCINE (1 of 2) [employer] Test [code = ZOSTER VACCINE of Me dicine (1 of 2)] Future Scheduled MEDICARE AWV (Initial) [employer] Test [code = MEDICARE AWV of Medi cine (Initial)] Future Scheduled FLU VACCINE > 6 MONTHS [employer] Test [code = FLU VACCINE > 6 of M edicine MONTHS] Future Scheduled BMI FOLLOW UP PLAN [employer] Test [code = BMI FOLLOW UP of Med icine PLAN] Future Scheduled COLON CANCER SCREENING: [facility] Test COLONOSCOPY [code = of Medic ine COLON CANCER SCREENING: COLONOSCOPY] Future Scheduled TETANUS SHOT (ADULT) [place] [employer] Test [code = TETANUS SHOT of Medi cine (ADULT)] Future Scheduled Diabetic foot [facility] Test examination of Medicine (regime/therapy) [code = 407134822] Future Scheduled ANNUAL DIABETIC [facility] [employer] [facility] RETINOPATHY SCREENING of Med icine [code = ANNUAL DIABETIC RETINOPATHY SCREENING] Future Scheduled HEPATITIS C SCREENING [employer] Test [code = HEPATITIS C of Medic ine SCREENING] Future Scheduled HIV SCREENING [code = [employer] [facility] HIV SCREENING] of Medicine Future Scheduled ZOSTER VACCINE (1 of 2) [facility] Test [code = ZOSTER VACCINE of Me dicine (1 of 2)] Future Scheduled MEDICARE AWV (Initial) [employer] Test [code = MEDICARE AWV of Medi cine (Initial)] Future Scheduled FLU VACCINE > 6 MONTHS [employer] Test [code = FLU VACCINE > 6 of M edicine MONTHS] Future Scheduled BMI FOLLOW UP PLAN [employer] Test [code = BMI FOLLOW UP of Med icine PLAN] Future Scheduled US ARTERIAL LEGS 1 Occurrences [facility] Test BILATERAL [code = starting of Medicin e 71520-3] 06/04/2020 until 06/04/2021 Future Scheduled US ARTERIAL LEGS 1 Occurrences [employer] Test BILATERAL [code = starting of Medicin e 35317-5] 06/04/2020 until 06/04/2021 Future Scheduled CTA HEAD NECK W WO 1 Occurrences [employer] Test CONTRAST [code = 96044] starting of M edicine 06/04/2020 until 01/02/2021 Future Scheduled CTA HEAD NECK W WO 1 Occurrences [employer] Test CONTRAST [code = 75667] starting of M edicine 06/04/2020 until 01/02/2021 Encounters Start End Encounter Admission Attending Care Care Encounter Source Date/Time Date/Time Type Type Clinicians Facility Department ID 2022-04-12 Outpatient ANMOL JARAD [facility] Surgery [id number] SLE 11:38:46 NILESHYER 2021-03-28 Outpatient ZOYATRUDY [facility] Surgery [id number] [facility] 19:12:49 DENICE 2021-03-28 Outpatient ZOYAEUNICEJULIO C [facility] Surgery [id number] SLE 08:45:09 DENICE 2020-09-01 Inpatient Tiff Diallo HCAPM H[facility]M [id number] [facility] 13:49:00 07 [facility] 2020-06-06 Inpatient ANMOL Taylor, HCAPM ENDO [id number] [facility] 09:00:00 Bubba 27 [facility] 2020-03-14 Inpatient Hematpour, HCACL OUTD [id number] [facility] 09:00:00 Khashayar 11 [facility] 2022-11-03 2022-11-03 Outpatient JARAD [facility] [id number] [facility] 13:40:04 16:48:30 BASSEM [facility] [employer] [facility] Medicin e 2022-09-16 2022-09-16 Outpatient [facility] [id number] [facility] 08:08:20 09:39:07 [place] e of Medicin e 2022-09-10 2022-09-10 Outpatient REJI [facility] [id number] [facility] 13:59:46 15:01:59 LENNY Junior e of Medicin e 2022-08-26 2022-08-26 Office VALENTIN Funes 1.2.840.114 [id number] [facility] 11:30:00 15:22:37 Visit Henry AMBULATOR 350.1.13.21 College Y 0.2.7.2.686 [id number] [facility] gabriel 825 e 2022-08-26 2022-08-26 Outpatient [facility] [id number] [facility] 10:49:23 15:22:23 Colleg e of Medicin e 2022-08-12 2022-08-12 Outpatient PRO, [facility] [id number] [facility] 00:00:00 00:00:00 GRIFFIN [employer] 2022-07-23 2022-07-23 Outpatient REJI, [facility] [id number] [facility] 14:04:10 15:05:29 PETER [facility] [employer] 2022-07-02 2022-07-02 Outpatient REJI, [facility] [id number] [facility] 13:02:29 13:27:23 PETER [employer] 2022-06-30 2022-06-30 Outpatient PRO, [facility] [id number] [facility] 00:00:00 00:00:00 GRIFFIN [employer]in [employer] 2022-06-25 2022-06-25 Outpatient REJI, [facility] [id number] [facility] 09:37:28 10:58:03 LENNY [employer] 2022-06-24 2022-06-24 Outpatient [facility] [id number] [facility] 11:34:00 23:59:00 Colleg [employer] [facility] Medicin e 2022-06-24 2022-06-24 [facility] ANMOL Mendoza, [facility] [id number] 11:34:00 14:58:00 Encounter [facility] [place] 2022-06-24 2022-06-24 Outpatient ANMOL MENDOZA [facility] Surgery [id number] [facility] 11:34:00 14:58:00 LENNY 2022-06-24 2022-06-24 Anesthesia [place], [facility] [id number] 13:02:00 14:16:00 Event [facility] 2022-06-24 2022-06-24 Surgery Reji, [facility] [id number] 13:00:00 14:00:00 [facility] 2022-06-16 2022-06-16 Outpatient PRO, [facility] [id number] [facility] 00:00:00 00:00:00 GRIFFIN [employer] 2022-05-26 2022-05-26 Outpatient REJI [facility] [id number] [facility] 14:18:04 16:24:12 LENNY Colleтатьяна e of Medicin e 2022-05-26 2022-05-26 Office Jarad VALENTIN [id number] [facility] 13:30:00 14:05:25 Visit Bassem AMBULATOR 350.1.13.21 College Y 0.2.7.2.686 [facility] [id number] Medi gabriel 825 e 2022-05-26 2022-05-26 Outpatient [facility] [id number] [facility] 08:25:39 09:23:31 Colleg e of Medicin e 2022-05-19 2022-05-19 Outpatient PRO [facility] [id number] [facility] 00:00:00 00:00:00 GRIFFIN [employer]in [employer] 2022-05-19 2022-05-19 Outpatient JARAD [facility] [id number] [facility] 00:00:00 00:00:00 BASSEM Hopeg e of Medicin e 2022-05-19 2022-05-19 Outpatient [facility] [id number] [facility] 00:00:00 00:00:00 Colleg e [facility] Medicin e 2022-05-03 2022-05-03 Outpatient [facility] [id number] [facility] 00:00:00 23:59:00 [facility] [employer]in [employer] 2022-05-03 2022-05-03 Outpatient ANMOL ABRAHAM [facility] Surgery [id number] [facility] 05:50:00 16:04:00 [facility] 2022-05-03 2022-05-03 [facility] ANMOL Abraham [facility] [id number] 05:50:00 16:04:00 En[address] [facility] 2022-05-03 2022-05-03 Surgery Jarad [facility] [id number] 07:30:00 10:45:00 [facility] 2022-05-03 2022-05-03 Anesthesia Kae [facility] [id number] 09:55:00 09:55:00 Event [facility] 2022-05-03 2022-05-03 Orders [facility] [id number] 00:00:00 00:00:00 [facility] 2022-04-05 2022-04-05 Outpatient VALENTIN MENDOZA [facility] [id number] [facility] 15:45:42 15:45:42 LENNY Junior e of Medicin e 2022-03-31 2022-03-31 Office VALENTIN MAST 1.2.840.114 [id number] [facility] 10:11:16 11:18:53 Visit GRIFFIN AMBULATOR 350.1.13.21 College Y 0.2.7.2.686 of [id number] Medi gabriel 825 e 2022-03-16 2022-03-17 Office Mitali Beck [facility] 1.2.840.114 [id number] [facility] 15:40:00 10:55:36 Visit AMBULATOR 350.1.13.21 College Y 0.2.7.2.686 of [id number] Medi gabriel 380 e 2022-03-12 2022-03-12 Outpatient [facility] [id number] [facility] 10:43:05 12:46:36 [place] e of Medicin e 2022-03-11 2022-03-11 Office VALENTIN Mast 1.2.840.114 [id number] [facility] 09:15:00 10:35:08 Visit Griffin Braulio AMBULATOR 350.1.13.21 College Y 0.2.7.2.686 of [id number] Medi gabriel 825 e 2022-02-03 2022-02-03 Office MERRILL Mast 1.2.840.114 [id number] [facility] 10:15:00 11:21:54 Visit Griffin Braulio AMBULATOR 350.1.13.21 College Y 0.2.7.2.686 of [id number] Medi gabriel 825 e 2022-01-06 2022-01-11 Inpatient [facility] [id number] [facility] 13:16:00 18:45:00 LENNY Dahl 2022-01-06 2022-01-11 Hospital ANMOL Panchal [facility] [id number] 13:16:00 18:45:00 Encounter [facility] 2022-01-06 2022-01-06 Office AbrahamVALENTIN 1.2.840.114 [id number] [facility] 11:00:00 11:15:00 Visit Jayer AMBULATOR 350.1.13.21 College Y 0.2.7.2.686 of [id number] [facility] gabriel 825 e 2021-11-25 2021-11-25 Office VALENTIN ABRAHAM 1.2.840.114 [id number] [facility] 08:50:53 08:50:53 Visit JAYER AMBULATOR 350.1.13.21 College Y 0.2.7.2.686 of [id number] [facility] gabriel 825 e 2021-11-25 2021-11-25 Outpatient [facility] [id number] [facility] 08:49:31 08:49:31 [facility] 2021-08-26 2021-08-26 Office Jarad VALENTIN 1.2.840.114 [id number] [facility] 15:00:00 15:20:41 Visit Jayer AMBULATOR 350.1.13.21 College Y 0.2.7.2.686 of [id number] [facility] gabriel 825 e 2021-08-26 2021-08-26 Outpatient [facility] [id number] [facility] 13:57:07 15:20:31 [facility] [employer] [facility] 2021-08-14 2021-08-14 Hospital ANMOL Abraham [facility] [id number] 12:05:00 18:00:00 Encounter [facility] 2021-08-14 2021-08-14 Outpatient ANMOL ABRAHAM [facility] Surgery [id number] [facility] 12:05:00 18:00:00 BASSEM 2021-08-14 2021-08-14 Surgery Jarad [facility] [id number] 12:55:00 15:14:00 [facility] 2021-08-06 2021-08-06 Office Bassem Nicole [facility] [id number] 12:00:00 12:15:00 Visit Calixto [facility] 2021-08-06 2021-08-06 Outpatient ANMOL GUEVARA [facility] [id number] [facility] 12:12:59 12:12:59 2021-07-29 2021-07-29 Office VALENTIN ABRAHAM 1.2.840.114 [id number] [facility] 08:38:25 13:27:46 Visit BASSEM AMBULATOR 350.1.13.21 College Y 0.2.7.2.686 [facility] [id number] [facility] gabriel 825 e 2021-07-29 2021-07-29 Outpatient [facility] [id number] [facility] 08:37:59 11:28:45 [facility] [employer] [facility]in [employer] 2021-07-29 2021-07-29 Outpatient ISMAEL GARCIA [facility] [id number] SLE 00:00:00 00:00:00 [facility] 2021-07-27 2021-07-27 Outpatient ISMAEL GARCIA [facility] [id number] [facility] 00:00:00 00:00:00 [facility] 2021-07-16 2021-07-21 [facility] Bassem Nicole [facility] [id number] 05:54:00 13:30:00 Encounter Lenny Panchal [facility] 2021-07-16 2021-07-21 Inpatient MARA TORRE Surgery [id number] [facility] 05:54:00 13:30:00 [facility] 2021-07-21 2021-07-21 Outpatient ISMAEL GARCIA [facility] [id number] SLE 00:00:00 00:00:00 [facility] 2021-07-17 2021-07-17 Orders [facility] [id number] 00:00:00 00:00:00 [facility] 2021-07-16 2021-07-16 Outpatient [facility] [id number] [facility] 05:54:00 23:59:00 [facility] 2021-07-16 2021-07-16 Anesthesia Yefri Dorsey [facility] [id number] [facility] 07:21:00 14:52:00 Event Cecil Dwyer [facility] 2021-07-16 2021-07-16 Surgery Jarad [facility] [id number] 07:30:00 12:10:00 [facility] 2021-07-16 2021-07-16 Outpatient [facility] [id number] [facility] 00:00:00 05:53:00 [facility] 2021-07-14 2021-07-14 Outpatient EL [facility] [id number] [facility] 10:23:51 10:23:51 2021-07-13 2021-07-13 Outpatient EL [facility] [id number] [facility] 15:42:16 23:59:00 2021-07-13 2021-07-13 [facility] [id number] 14:10:00 23:59:00 Encounter [facility] 2021-07-13 2021-07-13 Hospital Jarad [facility] [id number] 10:52:57 14:09:00 Encounter [facility] 2021-07-13 2021-07-13 Outpatient ANMOL ABRAHAM [facility] SLE [id number] [facility] 10:52:57 14:09:00 [facility] 2021-07-13 2021-07-13 Office Bassem Nicole [facility] [id number] 11:15:00 11:30:00 Visit MarctonyZhao [facility] 2021-07-13 2021-07-13 Outpatient EL SLE [facility] [id number] [facility] 00:00:00 00:00:00 2021-07-13 2021-07-13 Travel [facility] [id number] [facility] 00:00:00 00:00:00 [facility] 2021-06-03 2021-06-03 Office VALENTIN Abraham 1.2.840.114 [id number] [facility] 14:30:00 16:54:39 Visit Bassem AMBULATOR 350.1.13.21 College Y 0.2.7.2.686 [facility] [id number] [facility] 825 e 2021-03-17 2021-03-17 [facility] [id number] [facility] 11:13:07 12:03:12 [facility] [employer] [employer] 2021-02-05 2021-02-05 Outpatient ANMOL JEAN SLEYulia [facility] [id number] [facility] 00:00:00 00:00:00 [place] 2021-01-19 2021-01-22 Outpatient BEAU [facility] [id number] [facility] 14:02:48 19:51:53 DENICE [facility] [employer] [facility] 2021-01-19 2021-01-19 Outpatient [facility] [id number] [facility] 14:02:16 16:34:56 [facility]in [facility] 2020-12-23 2020-12-23 [facility] Radiology [facility] 1.2.840.114 [id number] 14:27:58 23:59:00 Encounter [place] 350.1.13.[address] [place] [address] [place] [address] [id number] [facility] 2020-12-23 2020-12-23 [facility] Radiology [facility] 1.2.840.114 [id number] [facility] 14:27:58 23:59:00 Encounter [place] 350.1.13.10 ity of [place] 4.2.7.[address] [place] [address] [id number] [facility] [address] 2020-12-23 2020-12-23 [facility] Radiology [facility] 1.2.840.114 [id number] 14:00:00 14:26:00 Encounter [place] 350.1.13.10 [place] [address]7.[address] [place] [address] [id number] [facility] 2020-12-23 2020-12-23 [facility] Radiology [facility] 1.2.840.114 [id number] [facility] 14:00:00 14:26:00 Encounter [place] 350.1.13.10 ity [facility] 4.2.7.[address] [place] [address] [id number] [facility] [address] 2020-12-23 2020-12-23 Outpatient R RADIOLOGY [facility] [id number] 00:00:00 00:00:00 [facility] 2020-11-18 2020-11-18 Outpatient ANMOL CLINE [facility] [id number] SLE 00:00:00 00:00:00 KHO[facility] 2020-10-22 2020-10-22 Outpatient ISMAEL MCCORMICK [facility] [id number] SLE 00:00:00 00:00:00 [place] 2020-09-23 2020-09-23 Outpatient ANMOL GUEVARA [facility] [id number] SLE 00:00:00 00:00:00 2020-09-01 2020-09-01 Office VALENTIN Jean 1.2.840.114 [id number] 15:36:10 16:06:10 Visit Denice E AMBULATOR 350.1.13.21 Y 0.2.7.2.686 [id number] 2020-09-01 2020-09-01 Office VALENTIN Jean 1.2.840.114 [id number] [facility] 15:36:10 16:06:10 Visit Denice E AMBULATOR 350.1.13.21 College Y 0.2.7.2.686 of [id number] [facility] gabriel 300 e 2020-07-02 2020-07-02 Office VALENTIN Abraham 1.2.840.114 [id number] 08:58:12 15:56:02 Visit Jayer AMBULATOR 350.1.13.21 Y 0.2.7.2.686 [id number] 2020-07-02 2020-07-02 Office VALENTIN Abraham 1.2.840.[id number] [place] [address] 08:58:12 15:56:02 Visit Jayer AMBULATOR 350.1.13.21 College Y 0.2.7.2.686 of [id number] [facility] gabriel 825 e 2020-06-04 2020-06-06 Office VALENTIN Abraham 1.2.840.114 [id number] 13:51:41 16:18:02 Visit Jayer AMBULATOR 350.1.13.21 Y 0.2.7.2.686 [id number] 2020-06-04 2020-06-06 Office VALENTIN Abraham 1.2.840.114 [id number] [facility] 13:51:41 16:18:02 Visit Bassem AMBULATOR 350.1.13.21 College Y 0.2.7.2.686 [id number] [facility] 825 e 2016-11-19 2016-11-19 Outpatient ISMAEL GARCIA [facility] [id number] [facility] 00:00:00 00:00:00 BIJI Results Test Description Test Time Test Comments Results Result Comments Source POC-Glucose meter 2022-06-24 12:46:31 Test Item Value Reference Range Interpretation Comme nts POC-Glucose Meter (test code = 125 mg/dL 70-110 H : TESTED AT [facility] 7200 1538) [facility] [address]: Relocation Commissioner/Techni cuco ID = [id number] for WILRICH, ALFREDO Lab Interpretation (test code = Abnormal 04954-9) [facility] [id number] 12:46:31 Test Item Value Reference Range Interpretation Comments POC-Glucose Meter (test 125 mg/dL 70-110 H : TE STED AT code = 1538) [facility] [address] [place] [address] 0: Relocation Commissioner/Techni cuco ID = [id number] for WILRICH, ALFREDO Lab Interpretation (test Abnormal code = 13476-3) [facility]-Glucose [id number] 12:46:31 Test Item Value Reference Range Interpretation Comments POC-Glucose Meter (test 125 mg/dL 70-110 H : TE STED AT code = 1538) [facility] [address] [place] [address] 0: Relocation Commissioner/Techni cuco ID = [id number] for WILRICH, ALFREDO Lab Interpretation (test Abnormal code = 12932-0) [facility] [id number] 12:46:31 Test Item Value Reference Range Interpretation Comments POC-Glucose Meter (test 125 mg/dL 70-110 H : TE STED AT code = 1538) [facility] [address] [place] [address] 0: Relocation Commissioner/Techni cuco ID = [id number] for WILRICH, ALFREDO Lab Interpretation (test Abnormal code = 05305-8) [facility] [id number] 12:46:31 Test Item Value Reference Range Interpretation Comments POC-Glucose Meter (test 125 mg/dL 70-110 H : TE STED AT code = 1538) [facility] 7200 [facility] 7703 0: Relocation Commissioner/Techni cuco ID = [id number] for WILRICH, ALFREDO Lab Interpretation (test Abnormal code = 42174-2) [facility]-Glucose [id number] 12:46:31 Test Item Value Reference Range Interpretation Comments POC-Glucose Meter (test 125 mg/dL 70-110 H : TE STED AT code = 1538) [facility] 7200 [facility] 7703 0: Relocation Commissioner/Techni cuco ID = [id number] for WILRICH, ALFREDO Lab Interpretation (test Abnormal code = 91669-0) [facility]-Glucose [id number] 12:46:31 Test Item Value Reference Range Interpretation Comments POC-Glucose Meter (test 125 mg/dL 70-110 H : TE STED AT code = 1538) [facility] 7200 [facility] 7703 0: Relocation Commissioner/Techni cuco ID = [id number] for WILRICH, ALFREDO Lab Interpretation (test Abnormal code = 78650-9) [facility]-GLUCOSE [id number] 12:46:31 Test Item Value Reference Range Interpretation Comments POC-GLUCOSE METER 125 mg/dL 70-110 H : TESTED A T [facility] (BEAKER) (test code = 7200 [facility] 7703 0: Relocation Commissioner/Techni cuco ID = [id number] for [place] SWATHIICH, ALFREDO POC-Glucose [id number] 11:38:31 Test Item Value Reference Range Interpretation Comments POC-Glucose Meter (test 156 mg/dL 70-110 H : TE STED AT [facility] code = 1538) [address] [facility], 770 30: Relocation Commissioner/Techni cuco ID = [id number] for Mayo, Radha Lab Interpretation (test Abnormal code = 51725-4) [facility] [id number] 11:38:31 Test Item Value Reference Range Interpretation Comments POC-Glucose Meter (test 156 mg/dL 70-110 H : TE STED AT [facility] code = 1538) [address] [facility], 770 30: Relocation Commissioner/Techni cuco ID = [id number] for Mayo, Radha Lab Interpretation (test Abnormal code = 93360-0) [facility]-Glucose [id number] 11:38:31 Test Item Value Reference Range Interpretation Comments POC-Glucose Meter (test 156 mg/dL 70-110 H : TE STED AT [facility] code = 1538) [address] [facility], 770 30: Relocation Commissioner/Techni cuco ID = [id number] for Mayo, Radha Lab Interpretation (test Abnormal code = 94415-2) [facility]-GLUCOSE [id number] 11:38:31 Test Item Value Reference Range Interpretation Comments POC-GLUCOSE METER 156 mg/dL 70-110 H : TESTED A T [facility] 6720 (BEAKER) (test code = MITCHELL Lopez [facility], 1538) [address]: Relocation Commissioner/Techni cuco ID = [id number] for Ga ophelia, Radha BASIC METABOLIC [id number] 07:21:28 Test Item Value Reference Range Interpretation Comments SODIUM (BEAKER) 141 meq/L 136-145 (test code = 381) POTASSIUM 4.2 meq/L 3.5-5.1 (BEAKER) (test code = 379) CHLORIDE (BEAKER) 107 meq/L 98-107 (test code = 382) CO2 (BEAKER) 26 meq/L 22-29 (test code = 355) BLOOD UREA 22 mg/dL 7-21 H NITROGEN (BEAKER) (test code = 354) CREATININE 1.54 mg/dL 0.57-1.25 H (BEAKER) (test code = 358) GLUCOSE RANDOM 231 mg/dL 70-105 H (BEAKER) (test code = 652) CALCIUM (BEAKER) 8.6 mg/dL 8.4-10.2 (test code = 697) EGFR (BEAKER) 53 Interpretatio n of eGFR (test code = mL/min/1.73 values Stage De scription 1092) sq m Result G1 Jelena l or high >=90 G2 Mildly decreased 60-89 G3a Mildl y to moderately 45-5 9 G3b Moderately to s everely 30-44 G4 Severl y decreased 15-29 G5 Kidney failure <15Reported eGF R is based on the CKD-EPI 202 equation that d oes not use a race coefficientEsti mated GFR is not as accur ate as Creatinine Laura cash in predicting glom erular filtration rate . Estimated GFR is not appl icable for dialysis patien mariaa Relocation Commissioner ID - [id number] 07:00:01 Test Item Value Reference Range Interpretation Comments PARTIAL THROMBOPLASTIN TIME 27.3 seconds 22.5-36.0 (BEAKER) (test code = 760) PROTHROMBIN [id number] 06:59:26 Test Item Value Reference Range Interpretation Comments PROTIME (BEAKER) 12.6 seconds 11.9-14.2 (test code = 759) INR (BEAKER) (test 0.96 See_Comment [Automat ed message] code = 370) The system [employer] generated this result transmitted ref erence range: <=5.90. The reference range was not used to int erpret this result as normal/abnormal . RECOMMENDED COUMADIN/WARFARIN INR THERAPY RANGESSTANDARD DOSE: 2.0 - 3.0 Includes: PROPHYLAXIS for venous thrombosis, systemic embolization; TREATMENT for venous thrombosis and/or pulmonary embolus.HIGH RISK: Target INR is 2.5-3.5 for patients with mechanical heart valves.CBC W/PLT COUNT & AUTO [id number] 06:44:01 Test Item Value Reference Range Interpretation Comments WHITE BLOOD CELL COUNT (BEAKER) 7.1 K/ L 3.5-10.5 (test code = 775) RED BLOOD CELL COUNT (BEAKER) 4.47 M/ L 4.63-6.08 L (test code = 761) HEMOGLOBIN (BEAKER) (test code = 12.6 GM/DL 13.7-17.5 L 410) HEMATOCRIT (BEAKER) (test code = 38.8 % 40.1-51.0 L 411) MEAN CORPUSCULAR VOLUME (BEAKER) 87 fL 79-92 (test code = 753) MEAN CORPUSCULAR HEMOGLOBIN 28.2 pg 25.7-32.2 (BEAKER) (test code = 751) MEAN CORPUSCULAR HEMOGLOBIN CONC 32.5 GM/DL 32.3-36.5 (BEAKER) (test code = 752) RED CELL DISTRIBUTION WIDTH 16.9 % 11.6-14.4 H (BEAKER) (test code = 412) PLATELET COUNT (BEAKER) (test 167 K/CU MM 150-450 code = 756) MEAN PLATELET VOLUME (BEAKER) 10.6 fL 9.4-12.4 (test code = 754) NUCLEATED [...] (test code = 437) NEUTROPHILS ABSOLUTE COUNT 4.37 K/ L 1.78-5.38 (BEAKER) (test code = 670) LYMPHOCYTES ABSOLUTE COUNT 1.95 K/ L 1.32-3.57 (BEAKER) (test code = 414) MONOCYTES ABSOLUTE COUNT (BEAKER) 0.50 K/ L 0.30-0.82 (test code = 415) EOSINOPHILS ABSOLUTE COUNT 0.22 K/ L 0.04-0.54 (BEAKER) (test code = 416) BASOPHILS ABSOLUTE COUNT (BEAKER) 0.04 K/ L 0.01-0.08 (test code = 417) IMMATURE GRANULOCYTES-RELATIVE 0.10 % 0.00-1.00 PERCENT (BEAKER) (test code = 2801) AFB CULTURE + SMEAR (SPUTUM ONLY)2022-03-15 09:47:27 Test Item Value Reference Interpretation Comments Range CULTURE (BEAKER) MYCOBACTERIUM A Mycobacter ium (test code = 1095) AVIUM avium* - Susceptibility performed by:[facility] , Dept. of Microbiology Research, Dr. Dameon Valerio [facility], [address] [facility] [address], [place], [place] [address] Amikacin (test code mcg/mL S = 1) Clarithromycin mcg/mL R (test code = 42) CULTURE (BEAKER) MYCOBACTERIUM A Mycobacter ium (test code = 1095) AVIUM aviumof a second type* - Susceptibility performed by:[facility] , Dept. of Microbiology Research, Dr. Dameon Valerio '[facility], [address] [facility] [address], [place], [place] [address] Amikacin (test code mcg/mL S = 1) Clarithromycin mcg/mL S (test code = 42) AFB SMEAR (BEAKER) 3+ acid fast (test code = 994) bacilli seen Identification performed by mass spectrometry(MALDI-ToF).CT, CTA, CHEST 2022-01-15 15:14:00Unlisted Reason for Exam - Click Yes and Enter Reason Below- >YesUnlisted Reason for Exam->thromboembolism to lower extremities [facility] : 1965 Sex: MAddendum BeginsREPORT STATUS:A Addendum: I agree with the previously described non vascular findings by Dr. Ace with the following additions: Thick-walled, cavitary lesions identified within the left lung measuring approximately 3.4 x 3.6 cm within the left upper lobe and 2.3 x 3.9cm within the left lower lobe. Scattered pulmonary nodules identified bilaterally measuring up to 1.7 cm. Findings are worrisome for a malignant/metastatic process. Severe emphysematous changes. Signed: Roney Cortes MDReport Verified Date/Time: 01/15/2022 15:14:59 Reading Location: [facility] Diagnostic Imaging Reading Room - [facility] 1.310.12Addendum EndsFINAL REPORT CT angiography of the thoracic aorta, 08-Jan-22 INDICATION: This is a 56 year old male with diagnosis of thromboembolism to the lower extremities for evaluation of potential thrombus. TECHNIQUE: Spiral acquisition before and during intravenous contrast administration using a Siemens multidetector CT scanner. Images were obtained before and during the dynamic passage of intravenous contrast material. Multi-planar 3-D volume-rendering reconstruction was performed using an independent workstation interactively by the interpreting physician as well as the 3-D specialist for optimal visualisation of the thoracic aorta and its proximal branches. Please refer to the contrast sheet scanned in the EPIC system for the amountand route of contrast given. This exam was performed according to our departmental dose-optimisationprogramme, which includes automated exposure control, adjustment of the mA and/or kV according to patient size and/or use of iterative reconstruction technique. Dose modulation, iterative reconstruction, and/or weight based adjustment of the mA/kV was utilized to reduce the radiation dose to as low asreasonably achievable. FINDINGS: VASCULAR: An ICD is identified in the left upper chest, with leads identified in the right-sided cardiac chambers. No pericardial effusion is seen. The central pulmonary artery is normal in calibre. No evidence of central pulmonary artery embolism. The cardiac chambersdemonstrate normal atrioventricular and ventriculoarterial concordance, and systemic and pulmonary venous return. Patient is post coronary artery bypass surgery. A patent left internal mammary artery bypass graft is seen. A patent bypass graft to the OM territory is identified. A patent bypass graft to the RCA territory is identified. Left ventricular enlargement is identified. Left atrial prominenceis identified. Lipomatous hypertrophy of interatrial septum is identified. Left atrial appendage is free of calcification. No thrombus is identified in the left ventricular apex. The thoracic aorta is normal in course, contour, and calibre. Mild calcific and noncalcific atherosclerosis seen in the descending thoracic aorta. There is no evidence of acute aortic pathology, specifically, there is no dissection, intramural hematoma, or contained rupture. The arch vessel branching pattern is normal. Short stent is seen in the left subclavian artery proximally with no in-stent stenosis identified. Nonobst ructive noncalcific atherosclerosis seen in the takeoff of the left common carotid artery. Mild noncalcific atherosclerosis seen at the takeoff of the right ablation artery. Quantitaive dimensions of the aorta are as follows: 3.7 x 3.6 cm at the sinuses of Valsalva (the sino-tubular junction is preserved); 2.8 cm at the proximal ascending thoracic aorta; 3.1 cm at the mid ascending aorta; 3.1 cm at the distal ascending aorta; 2.5 cm at the mid transverse arch; 2.2 cm at the proximal descending aorta; 2.5 cm at the mid descending aorta; 2.4 cm at the diaphragmatic hiatus. NON-VASCULAR: The thyroid gland is unremarkable. The chest wall and mediastinum appear normal. No significant adenopathy is seen. In the lung windows, no endobronchial lesion is seen, and bibasal pleural thickening is identified.Pulmonary emphysematous changes is noted, centrilobular in nature, moderate in degree. At image 23, left apex, it is uncertain if there could be a cyst present. More inferiorly at image 117, another one is identified, with circumferential wall thickening identified. No fluid level is seen. In addition, there are a number of nodular opacities identified both in the left lung and also in the right lung. The larger one, for example in the peripheral aspect of the right upper lobe, at image 54, measure up to 1.7 x 1.3 cm in diameter with irregular margin. More inferiorly at image 77, another one is seen measure 1.7 x 1.2 cm in diameter. See arrows in PACS for details. No prior examination is availablefor comparison. There are abnormal findings. An addendum will dictated thereafter. No acute bony pathology is seen. No lytic or blastic lesions identified. Patient is post median sternotomy. The abdomen has been dictated. CONCLUSIONS: 1. The thoracic aorta is normal in course, contour, and calibre. Noectasia or aneurysmal dilation is seen. No hanging atherosclerosis identified. There is mild calcific and noncalcific atherosclerosis diffusely seen in the descending thoracic aorta. There is no evidence of acute aortic pathology, specifically, there is no dissection, intramural hematoma, or containedrupture. Quantitative dimension of the aorta are as described above. Status of the arch vessels as described above, with mild atheroma present. 2. Patient is post coronary artery bypass surgery. 3. Lung findings are normal, with a number of nodules identified bilaterally, 1.7 cm in size. In the setting of pulmonary emphysematous changes, concern is of underlying malignancy. No prior examinations available for comparison. An addendum will be dictated regarding optimal recommendation of the lung findings. 4. Other findings as described above. 5. An addendum will be dictated by the Correctional Supply Supervisor Radiologist regarding the nonvascular findings. THE REPORT WILL ONLY BE CONSIDERED COMPLETE AFTER THE ADDENDUM HAS BEEN DICTATED. Signed: Pito Aceort Verified Date/Time: 01/12/2022 14:01:32 POC-Glucose [id number] 17:38:42 Test Item Value Reference Range Interpretation Comments POC-Glucose Meter (test 165 mg/dL 70-110 H : TE STED AT [facility] code = 1538) [address] [facility], 770 30: Relocation Commissioner/Techni cuco ID = [id number] for LINDA LOGAN Lab Interpretation (test Abnormal code = 22469-8) [facility] [id number] 17:38:42 Test Item Value Reference Range Interpretation Comments POC-Glucose Meter (test 165 mg/dL 70-110 H : TE STED AT [facility] code = 1538) [address] [facility], 770 30: Relocation Commissioner/Techni cuco ID = [id number] for LINDA LOGAN Lab Interpretation (test Abnormal code = 34001-8) [facility] [id number] 17:38:42 Test Item Value Reference Range Interpretation Comments POC-GLUCOSE METER 165 mg/dL 70-110 H : TESTED A T [facility] 6720 (BEAKER) (test code = MITCHELL Lopez [facility], 1538) [address]: Relocation Commissioner/Techni cuco ID = [id number] for LINDA LOGAN CT, CTA AAA, W/ JONATHAN.EXT.[id number] 14:57:00Please include CT [facility] : 1965 Sex: MFINAL REPORT CT/CTA of the abdomen and pelvis, with bilateral runoff, 01/08/2022. History: Embolism. Comparison: 02/05/2021. Technique: Multidetector CT scanning of the abdomen and pelvis was performed from the level of the lung bases to the feet, before and after administration of IV contrast. Delayed scanning was performed through the lower legs. No oral contrast was given. Sagittal and coronal multiplanar MIP and 3D VRT reformations were obtained. This exam was performed according to our departmental dose-optimization program which includes automated exposure control, adjustment of the mA and/or kV according to patient size and/or use of iterative reconstruction technique. Discus cheryl:Abdominal aorta and proximal branches: There is no evidence of aneurysm or stenosis. There is moderate stable calcific and noncalcific atherosclerosis. The maximal diameter of the abdominal aorta measures 2.2 cm at the level of the celiac trunk. The celiac trunk and SMA are patent. There are single renal arteries bilaterally which patent. The PATSY is thrombosed at its origin but reconstitutes viacollaterals. Diffuse stable atherosclerotic disease is present throughout the common, internal, and external iliac arteries without focal significant stenosis. Right lower extremity: The SCRAP KETTLE TENDER and DFA are patent. Greater than 50% stenosis at the origin of the SFA is unchanged. The distal SFA is patent. Dense atherosclerotic calcification is present in the proximal popliteal causing greater than 50% narrowing. The remaining popliteal is patent. Trifurcation vessels are patent to the foot. Left lower extremity: The SCRAP KETTLE TENDER and DFA are patent. Greater than 50% stenosis at the origin of the SFA is unchanged. The distal SFA is patent. Omto-wt-uofaxdce atherosclerotic disease is present throughout the popliteal without focal significant stenosis. Trifurcation vessels are patent to the foot. Abdomen: A small stone is present within the gallbladder. The liver, gallbladder, biliary tree, spleen, pancreas, kidneys, and adrenal glands are otherwise normal. Evaluation of bowel is limited without oral contrast. There is no bowel dilatation. The appendix is visualized and is normal. The appendix is visualized andis normal. There is no evidence of adenopathy or free fluid. Pelvis: Bladder is unremarkable. The prostate and seminal vesicles are normal. Small fat-containing bilateral inguinal hernias are present. Postsurgical changes are present within bilateral inguinal regions. There is no evidence of free fluid or adenopathy. Bones: Degenerative changes are present throughout the lumbar spine without evidenceof lytic or sclerotic lesion. IMPRESSION:1. Postsurgical changes involving bilateral common femoral a rteries; otherwise unchanged aortoiliac and bilateral lower extremity atherosclerotic disease with no new focal stenosis or acute emboli. Three-vessel runoff is present bilaterally.2. No acute abdominopelvic findings. See separate report for CT of the chest for thoracic findings. Signed: Octavio Villasenoreport Verified Date/Time: 01/11/2022 14:57:59 Reading Location: [place] [address] Angio Body Reading Room POCT-GLUCOSE [id number] 12:27:32 Test Item Value Reference Range Interpretation Comments POC-GLUCOSE METER 153 mg/dL 70-110 H : TESTED A T [facility] 6720 (BEAKER) (test code = [facility], 1538) [id number]: Relocation Commissioner/Techni cuco ID = [id number] for LINDA LOGAN POCT-GLUCOSE [id number] 08:54:29 Test Item Value Reference Range Interpretation Comments POC-GLUCOSE METER 160 mg/dL 70-110 H : TESTED A T [facility] 6720 (BEAKER) (test code = [facility], 1538) [id number]: Relocation Commissioner/Techni cuco ID = [id number] for LINDA LOGAN BASIC METABOLIC [id number] 07:44:05 Test Item Value Reference Range Interpretation Comments SODIUM (BEAKER) 136 meq/L 136-145 (test code = 381) POTASSIUM (BEAKER) 4.1 meq/L 3.5-5.1 (test code = 379) CHLORIDE (BEAKER) 104 meq/L 98-107 (test code = 382) CO2 (BEAKER) (test 22 meq/L 22-29 code = 355) BLOOD UREA NITROGEN 24 mg/dL 7-21 H (BEAKER) (test code = 354) CREATININE (BEAKER) 1.59 mg/dL 0.57-1.25 H (test code = 358) GLUCOSE RANDOM 162 mg/dL 70-105 H (BEAKER) (test code = 652) CALCIUM (BEAKER) 8.6 mg/dL 8.4-10.2 (test code = 697) EGFR (BEAKER) (test 45 mL/min/1.73 ESTIMA GILMA GFR IS code = 1092) sq m NOT ACCURATE CREATININE CLEARANCE IN PREDICTING GLOMERULAR FILTRATION RATE . ESTIMATED GFR I S NOT APPLICABLE FOR DIALYSIS PATIEN TS. Relocation Commissioner ID - KEEGAN [id number] 07:44:05 Test Item Value Reference Range Interpretation Comments MAGNESIUM (BEAKER) (test code = 2.1 mg/dL 1.6-2.6 627) Relocation Commissioner ID - KEEGAN [id number] 05:51:22 Test Item Value Reference Range Interpretation Comments PARTIAL THROMBOPLASTIN TIME 85.8 seconds 22.5-36.0 H (BEAKER) (test code = 760) CBC W/PLT COUNT & AUTO [id number] 05:27:31 Test Item Value Reference Range Interpretation Comments WHITE BLOOD CELL COUNT (BEAKER) 6.7 K/ L 3.5-10.5 (test code = 775) RED BLOOD CELL COUNT (BEAKER) 4.42 M/ L 4.63-6.08 L (test code = 761) HEMOGLOBIN (BEAKER) (test code = 12.5 GM/DL 13.7-17.5 L 410) HEMATOCRIT (BEAKER) (test code = 41.1 % 40.1-51.0 411) MEAN CORPUSCULAR VOLUME (BEAKER) 93.0 fL 79.0-92.2 H (test code = 753) MEAN CORPUSCULAR HEMOGLOBIN 28.3 pg 25.7-32.2 (BEAKER) (test code = 751) MEAN CORPUSCULAR HEMOGLOBIN CONC 30.4 GM/DL 32.3-36.5 L (BEAKER) (test code = 752) RED CELL DISTRIBUTION WIDTH 16.6 % 11.6-14.4 H (BEAKER) (test code = 412) PLATELET COUNT (BEAKER) (test 227 K/CU MM 150-450 code = 756) MEAN PLATELET VOLUME (BEAKER) 11.0 fL 9.4-12.4 (test code = 754) NUCLEATED RED BLOOD CELLS 0 /100 WBC 0-0 (BEAKER) (test code = 413) NEUTROPHILS RELATIVE PERCENT 52 % (BEAKER) (test code = 429) LYMPHOCYTES RELATIVE PERCENT 32 % (BEAKER) (test code = 430) MONOCYTES RELATIVE PERCENT 8 % (BEAKER) (test code = 431) EOSINOPHILS RELATIVE PERCENT 7 % (BEAKER) (test code = 432) BASOPHILS RELATIVE PERCENT 1 % (BEAKER) (test code = 437) NEUTROPHILS ABSOLUTE COUNT 3.44 K/ L 1.78-5.38 (BEAKER) (test code = 670) LYMPHOCYTES ABSOLUTE COUNT 2.14 K/ L 1.32-3.57 (BEAKER) (test code = 414) MONOCYTES ABSOLUTE COUNT (BEAKER) 0.54 K/ L 0.30-0.82 (test code = 415) EOSINOPHILS ABSOLUTE COUNT 0.46 K/ L 0.04-0.54 (BEAKER) (test code = 416) BASOPHILS ABSOLUTE COUNT (BEAKER) 0.07 K/ L 0.01-0.08 (test code = 417) IMMATURE GRANULOCYTES-RELATIVE 0 % 0-1 PERCENT (BEAKER) (test code = 2801) POCT-GLUCOSE [id number] 21:41:52 Test Item Value Reference Range Interpretation Comments POC-GLUCOSE METER 205 mg/dL 70-110 H : TESTED A T [facility] 6720 (BEAKER) (test code = [facility], 1538) [id number]: Relocation Commissioner/Techni cuco ID = [id number] for PH AUSTEN VICTORINA POCT-GLUCOSE [id number] 18:26:23 Test Item Value Reference Range Interpretation Comments POC-GLUCOSE METER 150 mg/dL 70-110 H : TESTED A T [facility] 6720 (BEAKER) (test code = [facility] [employer] [facility], 1538) [id number]: Relocation Commissioner/Techni cuco ID = [id number] for OR PHEValentina, RAFAELA 2D Echo W/Doppler(CW/PW/Color)2022-01-10 15:57:17Ejection FractionSLEH ECHO HEARTLAB [facility] W/Doppler(CW/PW/Color)2022-01-10 15:57:17Ejection FractionSLEH ECHO HEARTLAB [facility] Echo W/Doppler(CW/PW/Color) 2022-01-10 15:57:17Ejection FractionSLEH ECHO HEARTLAB AUDRA [facility]2D Echo W/Doppler(CW/PW/Color)2022-01-10 15:57:17Ejection FractionSLEH ECHO HEARTLAB AUDRA [facility]2D Echo W/Doppler(CW/PW/Color)2022-01-10 15:57:17Ejection FractionSLEH ECHO HEARTLAB AUDRA [facility]2D Echo W/Doppler(CW/PW/Color) 2022-01-10 15:57:17Ejection FractionSLEH ECHO HEARTLAB [facility](CW/PW/Color)2022-01-10 15:57:17Ejection FractionSLE ECHO HEARTLAB [facility]2D Echo W/Doppler(CW/PW/Color)2022-01-10 15:57:17Ejection FractionSLEH ECHO HEARTLAB AUDRA [facility]2D Echo W/Doppler(CW/PW/Color) 2022-01-10 15:57:17Ejection FractionSLE ECHO HEARTLAB CRISTOBALJULIANSt. [facility]2D [facility] W/Doppler(CW/PW/Color)2022-01-10 15:57:17Ejection FractionSLE ECHO HEARTLAB AUDRA [facility]2D Echo W/Doppler(CW/PW/Color)2022-01-10 15:57:17Ejection FractionSLE ECHO HEARTLAB [facility]OMESt. [facility] W/Doppler(CW/PW/Color) 2022-01-10 15:57:17Ejection FractionSLE ECHO HEARTLAB CRISTOBALThree [facility] Medical Centerputum Culture + Gram [id number] 09:33:13 Test Item Value Reference Range Interpretation Comments Result (test code = 4+ Normal respiratory 6463-4) carolynn present Gram Stain Result <1+ gram negative rods (test code = 1123) JUANPABLO (test code = JUANPABLO) [facility] [id number] 09:33:13 Test Item Value Reference Range Interpretation Comments Result (test code = 4+ Normal respiratory 6463-4) carolynn present Gram Stain Result <1+ gram negative rods (test code = 1123) JUANPABLO (test code = JUANPABLO) [facility] Gram [id number] 09:33:13 Test Item Value Reference Range Interpretation Comments Result (test code = 4+ Normal respiratory 6463-4) carolynn present Gram Stain Result <1+ gram negative rods (test code = 1123) JUANPABLO (test code = JUANPABLO) [facility] Culture + Gram [id number] 09:33:13 Test Item Value Reference Range Interpretation Comments Result (test code = 4+ Normal respiratory 6463-4) carolynn present Gram Stain Result <1+ gram negative rods (test code = 1123) JUANPABLO (test code = JUANPABLO) [facility] Culture + Gram [id number] 09:33:13 Test Item Value Reference Range Interpretation Comments Result (test code = 4+ Normal respiratory 6463-4) carolynn present Gram Stain Result <1+ gram negative rods (test code = 1123) JUANPABLO (test code = JUANPABLO) [facility] + Gram [id number] 09:33:13 Test Item Value Reference Range Interpretation Comments Result (test code = 4+ Normal respiratory 6463-4) carolynn present Gram Stain Result <1+ gram negative rods (test code = 1123) JUANPABLO (test code = JUANPABLO) [facility] Culture + Gram [id number] 09:33:13 Test Item Value Reference Range Interpretation Comments Result (test code = 4+ Normal respiratory 6463-4) carolynn present Gram Stain Result <1+ gram negative rods (test code = 1123) JUANPABLO (test code = JUANPABLO) [facility] Culture + Gram [id number] 09:33:13 Test Item Value Reference Range Interpretation Comments Result (test code = 4+ Normal respiratory 6463-4) carolynn present Gram Stain Result <1+ gram negative rods (test code = 1123) JUANPABLO (test code = JUANPABLO) [facility] + Gram [id number] 09:33:13 Test Item Value Reference Range Interpretation Comments Result (test code = 4+ Normal respiratory 6463-4) carolynn present Gram Stain Result <1+ gram negative rods (test code = 1123) JUANPABLO (test code = UJANPABLO) [facility] + Gram [id number] 09:33:13 Test Item Value Reference Range Interpretation Comments Result (test code = 4+ Normal respiratory 6463-4) carolynn present Gram Stain Result <1+ gram negative rods (test code = 1123) JUANPABLO (test code = JUANPABLO) [facility] + Gram [id number] 09:33:13 Test Item Value Reference Range Interpretation Comments Result (test code = 4+ Normal respiratory 6463-4) carolynn present Gram Stain Result <1+ gram negative rods (test code = 1123) JUANPABLO (test code = JUANPABLO) [facility] + Gram [id number] 09:33:13 Test Item Value Reference Range Interpretation Comments Result (test code = 4+ Normal respiratory 6463-4) carolynn present Gram Stain Result <1+ gram negative rods (test code = 1123) JUANPABLO (test code = JUANPABLO) [facility] + GRAM [id number] 09:33:13 Test Item Value Reference Range Interpretation Comments CULTURE (BEAKER) 4+ Normal respiratory (test code = 1095) carolynn present GRAM STAIN RESULT 3+ White blood cells (BEAKER) (test code = seen 1123) GRAM STAIN RESULT 0-5 epithelial cells (BEAKER) (test code = 368284) GRAM STAIN RESULT <1+ gram negative rods (BEAKER) (test code = 087727) POCT-GLUCOSE [id number] 08:18:58 Test Item Value Reference Range Interpretation Comments POC-GLUCOSE METER 116 mg/dL 70-110 H : TESTED A T [facility] 6720 (BEAKER) (test code = [place] 1538) [id number]: Relocation Commissioner/Techni cuco ID = [id number] for OR RAFAELA POE SPIN/CONCENTRATION [id number] 08:00:23 Test Item Value Reference Range Interpretation Comments Concentration charged (test code = Done 3087) [facility] [id number] 08:00:23 Test Item Value Reference Range Interpretation Comments Concentration charged (test code = Done 713) [facility] [id number] 08:00:23 Test Item Value Reference Range Interpretation Comments Concentration charged (test code = Done 2657) [facility]/CONCENTRATION [id number] 08:00:23 Test Item Value Reference Range Interpretation Comments Concentration charged (test code = Done 2657) [facility] [id number] 08:00:23 Test Item Value Reference Range Interpretation Comments Concentration charged (test code = Done 2657) [facility]/CONCENTRATION [id number] 08:00:23 Test Item Value Reference Range Interpretation Comments Concentration charged (test code = Done 2657) [facility]/CONCENTRATION [id number] 08:00:23 Test Item Value Reference Range Interpretation Comments Concentration charged (test code = Done 2657) [facility]/CONCENTRATION [id number] 08:00:23 Test Item Value Reference Range Interpretation Comments Concentration charged (test code = Done 2657) [facility]/CONCENTRATION [id number] 08:00:23 Test Item Value Reference Range Interpretation Comments Concentration charged (test code = Done 2657) [facility]/CONCENTRATION [id number] 08:00:23 Test Item Value Reference Range Interpretation Comments Concentration charged (test code = Done 2657) [facility]/CONCENTRATION [id number] 08:00:23 Test Item Value Reference Range Interpretation Comments Concentration charged (test code = Done 2657) [facility]/CONCENTRATION [id number] 08:00:23 Test Item Value Reference Range Interpretation Comments Concentration charged (test code = Done 2657) [facility]/CONCENTRATION [id number] 08:00:23 Test Item Value Reference Range Interpretation Comments CONCENTRATION CHARGED (BEAKER) (test Done code = 2657) BASIC METABOLIC [id number] 04:58:09 Test Item Value Reference Range Interpretation Comments SODIUM (BEAKER) 135 meq/L 136-145 L (test code = 381) POTASSIUM (BEAKER) 3.9 meq/L 3.5-5.1 (test code = 379) CHLORIDE (BEAKER) 104 meq/L 98-107 (test code = 382) CO2 (BEAKER) (test 21 meq/L 22-29 L code = 355) BLOOD UREA NITROGEN 28 mg/dL 7-21 H (BEAKER) (test code = 354) CREATININE (BEAKER) 1.66 mg/dL 0.57-1.25 H (test code = 358) GLUCOSE RANDOM 159 mg/dL 70-105 H (BEAKER) (test code = 652) CALCIUM (BEAKER) 8.3 mg/dL 8.4-10.2 L (test code = 697) EGFR (BEAKER) (test 43 mL/min/1.73 ESTIMA GILMA GFR IS code = 1092) sq m NOT ACCURATE CREATININE CLEARANCE IN PREDICTING GLOMERULAR FILTRATION RATE . ESTIMATED GFR I S NOT APPLICABLE FOR DIALYSIS PATIEN TS. Relocation Commissioner ID - KEEGAN [id number] 04:58:09 Test Item Value Reference Range Interpretation Comments MAGNESIUM (BEAKER) (test code = 2.0 mg/dL 1.6-2.6 627) Relocation Commissioner ID - ILIANAЕЛЕНА [id number] 04:34:37 Test Item Value Reference Range Interpretation Comments PARTIAL THROMBOPLASTIN TIME 94.5 seconds 22.5-36.0 H (BEAKER) (test code = 760) CBC W/PLT COUNT & AUTO [id number] 04:15:53 Test Item Value Reference Range Interpretation Comments WHITE BLOOD CELL COUNT (BEAKER) 6.9 K/ L 3.5-10.5 (test code = 775) RED BLOOD CELL COUNT (BEAKER) 4.30 M/ L 4.63-6.08 L (test code = 761) HEMOGLOBIN (BEAKER) (test code = 12.0 GM/DL 13.7-17.5 L 410) HEMATOCRIT (BEAKER) (test code = 39.5 % 40.1-51.0 L 411) MEAN CORPUSCULAR VOLUME (BEAKER) 91.9 fL 79.0-92.2 (test code = 753) MEAN CORPUSCULAR HEMOGLOBIN 27.9 pg 25.7-32.2 (BEAKER) (test code = 751) MEAN CORPUSCULAR HEMOGLOBIN CONC 30.4 GM/DL 32.3-36.5 L (BEAKER) (test code = 752) RED CELL DISTRIBUTION WIDTH 16.5 % 11.6-14.4 H (BEAKER) (test code = 412) PLATELET COUNT (BEAKER) (test 223 K/CU MM 150-450 code = 756) MEAN PLATELET VOLUME (BEAKER) 11.2 fL 9.4-12.4 (test code = 754) NUCLEATED RED BLOOD CELLS 0 /100 WBC 0-0 (BEAKER) (test code = 413) NEUTROPHILS RELATIVE PERCENT 56 % (BEAKER) (test code = 429) LYMPHOCYTES RELATIVE PERCENT 30 % (BEAKER) (test code = 430) MONOCYTES RELATIVE PERCENT 7 % (BEAKER) (test code = 431) EOSINOPHILS RELATIVE PERCENT 6 % (BEAKER) (test code = 432) BASOPHILS RELATIVE PERCENT 1 % (BEAKER) (test code = 437) NEUTROPHILS ABSOLUTE COUNT 3.87 K/ L 1.78-5.38 (BEAKER) (test code = 670) LYMPHOCYTES ABSOLUTE COUNT 2.10 K/ L 1.32-3.57 (BEAKER) (test code = 414) MONOCYTES ABSOLUTE COUNT (BEAKER) 0.47 K/ L 0.30-0.82 (test code = 415) EOSINOPHILS ABSOLUTE COUNT 0.39 K/ L 0.04-0.54 (BEAKER) (test code = 416) BASOPHILS ABSOLUTE COUNT (BEAKER) 0.06 K/ L 0.01-0.08 (test code = 417) IMMATURE GRANULOCYTES-RELATIVE 0 % 0-1 PERCENT (BEAKER) (test code = 2801) POCT-GLUCOSE [id number] 21:13:22 Test Item Value Reference Range Interpretation Comments POC-GLUCOSE METER 190 mg/dL 70-110 H : TESTED A T [facility] 6720 (BEAKER) (test code = [facility], 153) [id number]: Relocation Commissioner/Techni cuco ID = [id number] for Sary Edwards POCT-GLUCOSE [id number] 17:07:28 Test Item Value Reference Range Interpretation Comments POC-GLUCOSE METER 137 mg/dL 70-110 H : TESTED A T [facility] 6720 (BEAKER) (test code = [facility], 153) 51907: Relocation Commissioner/Techni cuco ID = [id number] for DELORES HAQ POCT-GLUCOSE [id number] 12:10:06 Test Item Value Reference Range Interpretation Comments POC-GLUCOSE METER 133 mg/dL 70-110 H : TESTED A T [facility] 6720 (BEAKER) (test code = [place], 1538) [address]: Relocation Commissioner/Techni cuco ID = [id number] for DELORES HAQ BASIC METABOLIC [id number] 06:26:42 Test Item Value Reference Range Interpretation Comments SODIUM (BEAKER) 139 meq/L 136-145 (test code = 381) POTASSIUM (BEAKER) 4.2 meq/L 3.5-5.1 (test code = 379) CHLORIDE (BEAKER) 107 meq/L 98-107 (test code = 382) CO2 (BEAKER) (test 24 meq/L 22-29 code = 355) BLOOD UREA NITROGEN 37 mg/dL 7-21 H (BEAKER) (test code = 354) CREATININE (BEAKER) 1.67 mg/dL 0.57-1.25 H (test code = 358) GLUCOSE RANDOM 94 mg/dL 70-105 (BEAKER) (test code = 652) CALCIUM (BEAKER) 8.6 mg/dL 8.4-10.2 (test code = 697) EGFR (BEAKER) (test 43 mL/min/1.73 ESTIMA GILMA GFR IS code = 1092) sq m NOT ACCURATE CREATININE CLEARANCE IN PREDICTING GLOMERULAR FILTRATION RATE . ESTIMATED GFR I S NOT APPLICABLE FOR DIALYSIS PATIEN TS. Relocation Commissioner ID - FABIANA [id number] 06:26:42 Test Item Value Reference Range Interpretation Comments MAGNESIUM (BEAKER) (test code = 2.2 mg/dL 1.6-2.6 627) Relocation Commissioner ID - FABIANA [id number] 06:08:36 Test Item Value Reference Range Interpretation Comments PARTIAL THROMBOPLASTIN TIME 83.0 seconds 22.5-36.0 H (BEAKER) (test code = 760) CBC W/PLT COUNT & AUTO [id number] 05:53:46 Test Item Value Reference Range Interpretation Comments WHITE BLOOD CELL COUNT (BEAKER) 7.5 K/ L 3.5-10.5 (test code = 775) RED BLOOD CELL COUNT (BEAKER) 4.35 M/ L 4.63-6.08 L (test code = 761) HEMOGLOBIN (BEAKER) (test code = 12.6 GM/DL 13.7-17.5 L 410) HEMATOCRIT (BEAKER) (test code = 40.0 % 40.1-51.0 L 411) MEAN CORPUSCULAR VOLUME (BEAKER) 92.0 fL 79.0-92.2 (test code = 753) MEAN CORPUSCULAR HEMOGLOBIN 29.0 pg 25.7-32.2 (BEAKER) (test code = 751) MEAN CORPUSCULAR HEMOGLOBIN CONC 31.5 GM/DL 32.3-36.5 L (BEAKER) (test code = 752) RED CELL DISTRIBUTION WIDTH 16.5 % 11.6-14.4 H (BEAKER) (test code = 412) PLATELET COUNT (BEAKER) (test 237 K/CU MM 150-450 code = 756) MEAN PLATELET VOLUME (BEAKER) 11.5 fL 9.4-12.4 (test code = 754) NUCLEATED RED BLOOD CELLS 0 /100 WBC 0-0 (BEAKER) (test code = 413) NEUTROPHILS RELATIVE PERCENT 60 % (BEAKER) (test code = 429) LYMPHOCYTES RELATIVE PERCENT 26 % (BEAKER) (test code = 430) MONOCYTES RELATIVE PERCENT 8 % (BEAKER) (test code = 431) EOSINOPHILS RELATIVE PERCENT 4 % (BEAKER) (test code = 432) BASOPHILS RELATIVE PERCENT 1 % (BEAKER) (test code = 437) NEUTROPHILS ABSOLUTE COUNT 4.50 K/ L 1.78-5.38 (BEAKER) (test code = 670) LYMPHOCYTES ABSOLUTE COUNT 1.97 K/ L 1.32-3.57 (BEAKER) (test code = 414) MONOCYTES ABSOLUTE COUNT (BEAKER) 0.58 K/ L 0.30-0.82 (test code = 415) EOSINOPHILS ABSOLUTE COUNT 0.32 K/ L 0.04-0.54 (BEAKER) (test code = 416) BASOPHILS ABSOLUTE COUNT (BEAKER) 0.07 K/ L 0.01-0.08 (test code = 417) IMMATURE GRANULOCYTES-RELATIVE 1 % 0-1 PERCENT (BEAKER) (test code = 2801) [id number] 22:00:55 Test Item Value Reference Range Interpretation Comments PARTIAL THROMBOPLASTIN TIME 70.4 seconds 22.5-36.0 H (BEAKER) (test code = 760) POCT-GLUCOSE [id number] 20:48:18 Test Item Value Reference Range Interpretation Comments POC-GLUCOSE METER 193 mg/dL 70-110 H : TESTED A T [facility] 6720 (BEAKER) (test code = [facility], 1538) 40404: Relocation Commissioner/Techni cuco ID = [id number] for Roula Carreno POCT-GLUCOSE [id number] 17:35:49 Test Item Value Reference Range Interpretation Comments POC-GLUCOSE METER 137 mg/dL 70-110 H : TESTED A T [facility] 6720 (BEAKER) (test code = [facility], 1538) 10618: Relocation Commissioner/Techni cuco ID = [id number] for DELORES HAQ [id number] 13:46:42 Test Item Value Reference Range Interpretation Comments PARTIAL THROMBOPLASTIN TIME 73.0 seconds 22.5-36.0 H (BEAKER) (test code = 760) POCT-GLUCOSE [id number] 11:46:22 Test Item Value Reference Range Interpretation Comments POC-GLUCOSE METER 201 mg/dL 70-110 H : TESTED A T [facility] 6720 (BEAKER) (test code = [facility], 1538) 42512: Relocation Commissioner/Techni cuco ID = [id number] for DELORES HAQ POCT-GLUCOSE [id number] 07:27:30 Test Item Value Reference Range Interpretation Comments POC-GLUCOSE METER 140 mg/dL 70-110 H : TESTED A T [facility] 6720 (BEAKER) (test code = [facility], 1538) 53280: Relocation Commissioner/Techni cuco ID = [id number] for DELORES HAQ [id number] 07:02:49 Test Item Value Reference Range Interpretation Comments PARTIAL THROMBOPLASTIN TIME 67.1 seconds 22.5-36.0 H (BEAKER) (test code = 760) [id number] 04:53:20 Test Item Value Reference Range Interpretation Comments MAGNESIUM (BEAKER) (test code = 2.2 mg/dL 1.6-2.6 627) Relocation Commissioner ID - MALINI WBASIC METABOLIC [id number] 04:53:19 Test Item Value Reference Range Interpretation Comments SODIUM (BEAKER) 138 meq/L 136-145 (test code = 381) POTASSIUM (BEAKER) 4.3 meq/L 3.5-5.1 (test code = 379) CHLORIDE (BEAKER) 106 meq/L 98-107 (test code = 382) CO2 (BEAKER) (test 25 meq/L 22-29 code = 355) BLOOD UREA NITROGEN 41 mg/dL 7-21 H (BEAKER) (test code = 354) CREATININE (BEAKER) 1.77 mg/dL 0.57-1.25 H (test code = 358) GLUCOSE RANDOM 150 mg/dL 70-105 H (BEAKER) (test code = 652) CALCIUM (BEAKER) 9.3 mg/dL 8.4-10.2 (test code = 697) EGFR (BEAKER) (test 40 mL/min/1.73 ESTIMA GILMA GFR IS code = 1092) sq m NOT ACCURATE CREATININE CLEARANCE IN PREDICTING GLOMERULAR FILTRATION RATE . ESTIMATED GFR I S NOT APPLICABLE FOR DIALYSIS PATIEN TSMary Relocation Commissioner ID - MALINI [id number] 04:33:04 Test Item Value Reference Range Interpretation Comments PARTIAL THROMBOPLASTIN TIME 123.5 seconds 22.5-36.0 H (BEAKER) (test code = 760) CBC W/PLT COUNT & AUTO [id number] 04:04:15 Test Item Value Reference Range Interpretation Comments WHITE BLOOD CELL COUNT (BEAKER) 7.6 K/ L 3.5-10.5 (test code = 775) RED BLOOD CELL COUNT (BEAKER) 4.81 M/ L 4.63-6.08 (test code = 761) HEMOGLOBIN (BEAKER) (test code = 13.7 GM/DL 13.7-17.5 410) HEMATOCRIT (BEAKER) (test code = 44.6 % 40.1-51.0 411) MEAN CORPUSCULAR VOLUME (BEAKER) 92.7 fL 79.0-92.2 H (test code = 753) MEAN CORPUSCULAR HEMOGLOBIN 28.5 pg 25.7-32.2 (BEAKER) (test code = 751) MEAN CORPUSCULAR HEMOGLOBIN CONC 30.7 GM/DL 32.3-36.5 L (BEAKER) (test code = 752) RED CELL DISTRIBUTION WIDTH 16.4 % 11.6-14.4 H (BEAKER) (test code = 412) PLATELET COUNT (BEAKER) (test 248 K/CU MM 150-450 code = 756) MEAN PLATELET VOLUME (BEAKER) 11.5 fL 9.4-12.4 (test code = 754) NUCLEATED RED BLOOD CELLS 0 /100 WBC 0-0 (BEAKER) (test code = 413) NEUTROPHILS RELATIVE PERCENT 57 % (BEAKER) (test code = 429) LYMPHOCYTES RELATIVE PERCENT 31 % (BEAKER) (test code = 430) MONOCYTES RELATIVE PERCENT 6 % (BEAKER) (test code = 431) EOSINOPHILS RELATIVE PERCENT 4 % (BEAKER) (test code = 432) BASOPHILS RELATIVE PERCENT 1 % (BEAKER) (test code = 437) NEUTROPHILS ABSOLUTE COUNT 4.36 K/ L 1.78-5.38 (BEAKER) (test code = 670) LYMPHOCYTES ABSOLUTE COUNT 2.36 K/ L 1.32-3.57 (BEAKER) (test code = 414) MONOCYTES ABSOLUTE COUNT (BEAKER) 0.46 K/ L 0.30-0.82 (test code = 415) EOSINOPHILS ABSOLUTE COUNT 0.32 K/ L 0.04-0.54 (BEAKER) (test code = 416) BASOPHILS ABSOLUTE COUNT (BEAKER) 0.08 K/ L 0.01-0.08 (test code = 417) IMMATURE GRANULOCYTES-RELATIVE 0 % 0-1 PERCENT (BEAKER) (test code = 2801) POCT-GLUCOSE [id number] 19:52:04 Test Item Value Reference Range Interpretation Comments POC-GLUCOSE METER 195 mg/dL 70-110 H : TESTED A T [facility] 6720 (BEAKER) (test code = [facility], [facility]) [address]: Relocation Commissioner/Techni cuco ID = [id number] for PI REJI, CANDIDA POCT-GLUCOSE [id number] 17:28:37 Test Item Value Reference Range Interpretation Comments POC-GLUCOSE METER 128 mg/dL 70-110 H : TESTED A T [facility] 6720 (BEAKER) (test code = [facility], 1538) 068[address]: Relocation Commissioner/Techni cuco ID = [id number] for BILLY LOGANCY POCT-GLUCOSE [id number] 12:49:29 Test Item Value Reference Range Interpretation Comments POC-GLUCOSE METER 161 mg/dL 70-110 H : TESTED A T [facility] 6720 (BEAKER) (test code = [facility], 1538) 07[address]: Relocation Commissioner/Techni cuco ID = [id number] for LINDA LOGAN BASIC METABOLIC [id number] 12:03:52 Test Item Value Reference Range Interpretation Comments SODIUM (BEAKER) 136 meq/L 136-145 (test code = 381) POTASSIUM (BEAKER) 5.4 meq/L 3.5-5.1 H (test code = 379) CHLORIDE (BEAKER) 103 meq/L 98-107 (test code = 382) CO2 (BEAKER) (test 29 meq/L 22-29 code = 355) BLOOD UREA NITROGEN 45 mg/dL 7-21 H (BEAKER) (test code = 354) CREATININE (BEAKER) 1.92 mg/dL 0.57-1.25 H (test code = 358) GLUCOSE RANDOM 166 mg/dL 70-105 H (BEAKER) (test code = 652) CALCIUM (BEAKER) 9.4 mg/dL 8.4-10.2 (test code = 697) EGFR (BEAKER) (test 36 mL/min/1.73 ESTIMA GILMA GFR IS code = 1092) sq m NOT ACCURATE CREATININE CLEARANCE IN PREDICTING GLOMERULAR FILTRATION RATE . ESTIMATED GFR I S NOT APPLICABLE FOR DIALYSIS PATIEN TS. Relocation Commissioner ID - PIЕЛЕНА [id number] 12:03:52 Test Item Value Reference Range Interpretation Comments MAGNESIUM (BEAKER) (test code = 2.2 mg/dL 1.6-2.6 627) Relocation Commissioner ID - KEEGAN [id number] 11:47:02 Test Item Value Reference Range Interpretation Comments PARTIAL THROMBOPLASTIN TIME 81.8 seconds 22.5-36.0 H (BEAKER) (test code = 760) HEMOGLOBIN [id number] 11:06:55 Test Item Value Reference Range Interpretation Comments HEMOGLOBIN A1C 6.9 % See_Comment H [Automated m essage] ELECTROPHORESIS (BEAKER) The system which (test code = 3811) generated this result transmitted ref erence range: <=5.6%. The reference range was not used to int erpret this result as normal/abnormal . "The A1c is measured using a NGSP-certified method. HbA1c value equal to or greater than 6.5% as thediagnosis cutoff for diabetes. An HbA1c value of 5.7- 6.4% indicates increased risk for diabetes (prediabetes)."Relocation Commissioner ID - ADMPOCT- GLUCOSE [id number] 08:05:59 Test Item Value Reference Range Interpretation Comments POC-GLUCOSE METER 115 mg/dL 70-110 H : TESTED Jennifer T [facility] 6720 (BEAKER) (test code = [place], 1538) [address]: Relocation Commissioner/Techni cuco ID = [id number] for LINDA LOGAN CBC W/PLT COUNT & AUTO [id number] 05:33:10 Test Item Value Reference Range Interpretation Comments WHITE BLOOD CELL COUNT (BEAKER) 7.0 K/ L 3.5-10.5 (test code = 775) RED BLOOD CELL COUNT (BEAKER) 4.30 M/ L 4.63-6.08 L (test code = 761) HEMOGLOBIN (BEAKER) (test code = 12.2 GM/DL 13.7-17.5 L 410) HEMATOCRIT (BEAKER) (test code = 39.2 % 40.1-51.0 L 411) MEAN CORPUSCULAR VOLUME (BEAKER) 91.2 fL 79.0-92.2 (test code = 753) MEAN CORPUSCULAR HEMOGLOBIN 28.4 pg 25.7-32.2 (BEAKER) (test code = 751) MEAN CORPUSCULAR HEMOGLOBIN CONC 31.1 GM/DL 32.3-36.5 L (BEAKER) (test code = 752) RED CELL DISTRIBUTION WIDTH 16.6 % 11.6-14.4 H (BEAKER) (test code = 412) PLATELET COUNT (BEAKER) (test 210 K/CU MM 150-450 code = 756) MEAN PLATELET VOLUME (BEAKER) 11.8 fL 9.4-12.4 (test code = 754) NUCLEATED RED BLOOD CELLS 0 /100 WBC 0-0 (BEAKER) (test code = 413) NEUTROPHILS RELATIVE PERCENT 51 % (BEAKER) (test code = 429) LYMPHOCYTES RELATIVE PERCENT 35 % (BEAKER) (test code = 430) MONOCYTES RELATIVE PERCENT 8 % (BEAKER) (test code = 431) EOSINOPHILS RELATIVE PERCENT 5 % (BEAKER) (test code = 432) BASOPHILS RELATIVE PERCENT 1 % (BEAKER) (test code = 437) NEUTROPHILS ABSOLUTE COUNT 3.55 K/ L 1.78-5.38 (BEAKER) (test code = 670) LYMPHOCYTES ABSOLUTE COUNT 2.46 K/ L 1.32-3.57 (BEAKER) (test code = 414) MONOCYTES ABSOLUTE COUNT (BEAKER) 0.55 K/ L 0.30-0.82 (test code = 415) EOSINOPHILS ABSOLUTE COUNT 0.35 K/ L 0.04-0.54 (BEAKER) (test code = 416) BASOPHILS ABSOLUTE COUNT (BEAKER) 0.06 K/ L 0.01-0.08 (test code = 417) IMMATURE GRANULOCYTES-RELATIVE 0 % 0-1 PERCENT (BEAKER) (test code = 2801) [id number] 05:28:04 Test Item Value Reference Range Interpretation Comments PARTIAL THROMBOPLASTIN TIME 72.3 seconds 22.5-36.0 H (BEAKER) (test code = 760) [id number] 23:23:38 Test Item Value Reference Range Interpretation Comments PARTIAL THROMBOPLASTIN TIME 68.4 seconds 22.5-36.0 H (BEAKER) (test code = 760) SARS-CoV2/RT-PCR (Asymptomatic ONLY)2022-01-06 22:48:10 Test Item Value Reference Range Interpretation Comments SARS-COV2/RT-PCR Negative Not Detected, (test code = Negative, See 66105-4) external report for linked test SARS-COV-2 [facility] PERFORMING LAB (test code = 64540-4) JUANPABLO (test code = Negative result for [...] of detection for this assay is 800 copies/mL. This SARS CoV-2 test is a [...] revoked under Section 564(g) of the Act. Fact Sheet for Healthcare Providers:https://www.[employer]/sites/default/f richi/product/documents/F act_Sheet_HC_Providers_L lpv_MQXX-CnF-1.pdf Fact Sheet for Healthcare Patients:https://www.[employer]/sites/default/fi les/product/documents/Fa ct_Sheet_Patients_Lyra_S ARS-CoV-2.pdf Performing Laboratory:[facility] [place] [address] [facility]2022-01-06 22:48:10 Test Item Value Reference Range Interpretation Comments SARS-COV2/RT-PCR Negative Not Detected, (test code = Negative, See 60509-9) external report for linked test SARS-COV-2 [facility] PERFORMING LAB (test code = 08448-4) JUANPABLO (test code = Negative result for [...] of detection for this assay is 800 copies/mL. This SARS CoV-2 test is a [...] revoked under Section 564(g) of the Act. Fact Sheet for Healthcare Providers:https://www.[employer]/sites/default/f richi/product/documents/F act_Sheet_HC_Providers_L tzg_FQPJ-UoZ-1.pdf Fact Sheet for Healthcare Patients:https://www.[employer]/sites/default/fi les/product/documents/Fa ct_Sheet_Patients_Lyra_S ARS-CoV-2.pdf Performing Laboratory:[facility] [place] [address] [facility]omatic ONLY)2022-01-06 22:48:10 Test Item Value Reference Range Interpretation Comments SARS-COV2/RT-PCR Negative Not Detected, (test code = Negative, See 44414-6) external report for linked test SARS-COV-2 [facility] PERFORMING LAB (test code = 41832-6) JUANPABLO (test code = Negative result for [...] of detection for this assay is 800 copies/mL. This SARS CoV-2 test is a [...] revoked under Section 564(g) of the Act. Fact Sheet for Healthcare Providers:https://www.[employer]/sites/default/f richi/product/documents/F act_Sheet_HC_Providers_L fxg_WNHQ-ZnH-4.pdf Fact Sheet for Healthcare Patients:https://www.[employer]/sites/default/fi les/product/documents/Fa ct_Sheet_Patients_Lyra_S ARS-CoV-2.pdf Performing Laboratory:[facility], [place] [address] [place], [place] [address]ARS-CoV2/RT-PCR (Asymptomatic ONLY)2022-01-06 22:48:10 Test Item Value Reference Range Interpretation Comments SARS-COV2/RT-PCR Negative Not Detected, (test code = Negative, See 03427-9) external report for linked test SARS-COV-2 [facility] PERFORMING LAB (test code = 50978-5) JUANPABLO (test code = Negative result for [...] of detection for this assay is 800 copies/mL. This SARS CoV-2 test is a [...] revoked under Section 564(g) of the Act. Fact Sheet for Healthcare Providers:https://www.[employer]/sites/default/f richi/product/documents/F act_Sheet_HC_Providers_L vil_BGEI-ClM-2.pdf Fact Sheet for Healthcare Patients:https://www.[employer]/sites/default/fi les/product/documents/Fa ct_Sheet_Patients_Lyra_S ARS-CoV-2.pdf Performing Laboratory:[facility] [place] [address] [facility] ONLY[facility]2022-01-06 22:48:10 Test Item Value Reference Range Interpretation Comments SARS-COV2/RT-PCR Negative Not Detected, (test code = Negative, See 89501-8) external report for linked test SARS-COV-2 [facility] PERFORMING LAB (test code = 92667-1) JUANPABLO (test code = Negative result for [...] of detection for this assay is 800 copies/mL. This SARS CoV-2 test is a [...] revoked under Section 564(g) of the Act. Fact Sheet for Healthcare Providers:https://www.[employer]/sites/default/f richi/product/documents/F act_Sheet_HC_Providers_L pts_CJJE-KxK-5.pdf Fact Sheet for Healthcare Patients:https://www.[employer]/sites/default/fi les/product/documents/Fa ct_Sheet_Patients_Lyra_S ARS-CoV-2.pdf Performing Laboratory:[facility] [place] [address] [facility]omatic ONLY)2022-01-06 22:48:10 Test Item Value Reference Range Interpretation Comments SARS-COV2/RT-PCR Negative Not Detected, (test code = Negative, See 18733-1) external report for linked test SARS-COV-2 [facility] PERFORMING LAB (test code = 02004-0) JUANPABLO (test code = Negative result for [...] of detection for this assay is 800 copies/mL. This SARS CoV-2 test is a [...] revoked under Section 564(g) of the Act. Fact Sheet for Healthcare Providers:https://www.[employer]/sites/default/f richi/product/documents/F act_Sheet_HC_Providers_L rqu_WOJV-YkD-6.pdf Fact Sheet for Healthcare Patients:https://www.[employer]/sites/default/fi les/product/documents/Fa ct_Sheet_Patients_Lyra_S ARS-CoV-2.pdf Performing Laboratory:[facility] [place] [address] [facility] (As[facility]omatic ONLY)2022-01-06 22:48:10 Test Item Value Reference Range Interpretation Comments SARS-COV2/RT-PCR Negative Not Detected, (test code = Negative, See 75244-5) external report for linked test SARS-COV-2 [facility] PERFORMING LAB (test code = 87133-1) JUANPABLO (test code = Negative result for [...] of detection for this assay is 800 copies/mL. This SARS CoV-2 test is a [...] revoked under Section 564(g) of the Act. Fact Sheet for Healthcare Providers:https://www.[employer]/sites/default/f richi/product/documents/F act_Sheet_HC_Providers_L qmp_MNVS-PuL-9.pdf Fact Sheet for Healthcare Patients:https://www.[employer]/sites/default/fi les/product/documents/Fa ct_Sheet_Patients_Lyra_S ARS-CoV-2.pdf Performing Laboratory:[facility] [place] [address] [facility] (As[facility]omatic ONLY)2022-01-06 22:48:10 Test Item Value Reference Range Interpretation Comments SARS-COV2/RT-PCR Negative Not Detected, (test code = Negative, See 60447-8) external report for linked test SARS-COV-2 [facility] PERFORMING LAB (test code = 58406-8) JUANPABLO (test code = Negative result for [...] of detection for this assay is 800 copies/mL. This SARS CoV-2 test is a [...] revoked under Section 564(g) of the Act. Fact Sheet for Healthcare Providers:https://www.[employer] [facility].[employer]/sites/default/f richi/product/documents/F act_Sheet_HC_Providers_L pts_EQQY-AxC-5.pdf Fact Sheet for Healthcare Patients:https://www.[employer]/sites/default/fi les/product/documents/Fa ct_Sheet_Patients_Navya_S ARS-CoV-2.pdf Performing Laboratory:[facility] [place] [address] [facility] (As[facility]omatic ONLY)2022-01-06 22:48:10 Test Item Value Reference Range Interpretation Comments SARS-COV2/RT-PCR Negative Not Detected, (test code = Negative, See 16260-2) external report for linked test SARS-COV-2 [facility] PERFORMING LAB (test code = 98774-0) JUANPABLO (test code = Negative result for [...] of detection for this assay is 800 copies/mL. This SARS CoV-2 test is a [...] revoked under Section 564(g) of the Act. Fact Sheet for Healthcare Providers:https://www.[employer] [facility].[employer]/sites/default/f richi/product/documents/F act_Sheet_HC_Providers_L tbk_LPFN-DdY-7.pdf Fact Sheet for Healthcare Patients:https://www.[employer]/sites/default/fi les/product/documents/Fa ct_Sheet_Patients_Ly_S ARS-CoV-2.pdf Performing Laboratory:[facility], [place] [address] [place], [place] [address]ARS-CoV2/RT-PCR (Asymptomatic ONLY)2022-01-06 22:48:10 Test Item Value Reference Range Interpretation Comments SARS-COV2/RT-PCR Negative Not Detected, (test code = Negative, See 19690-8) external report for linked test SARS-COV-2 [facility] PERFORMING LAB (test code = 86638-9) JUANPABLO (test code = Negative result for [...] of detection for this assay is 800 copies/mL. This SARS CoV-2 test is a [...] revoked under Section 564(g) of the Act. Fact Sheet for Healthcare Providers:https://www.[employer]/sites/default/f richi/product/documents/F act_Sheet_HC_Providers_L txp_CCAW-FtJ-7.pdf Fact Sheet for Healthcare Patients:https://www.[employer]/sites/default/fi les/product/documents/Fa ct_Sheet_Patients_Lyra_S ARS-CoV-2.pdf Performing Laboratory:[facility] [place] [address] [facility] ONLY)2022-01-06 22:48:10 Test Item Value Reference Range Interpretation Comments SARS-COV2/RT-PCR Negative Not Detected, (test code = Negative, See 27617-1) external report for linked test SARS-COV-2 [facility] PERFORMING LAB (test code = 38040-2) JUANPABLO (test code = Negative result for [...] of detection for this assay is 800 copies/mL. This SARS CoV-2 test is a [...] revoked under Section 564(g) of the Act. Fact Sheet for Healthcare Providers:https://www.[employer]/sites/default/f richi/product/documents/F act_Sheet_HC_Providers_L azj_MYPJ-KuL-4.pdf Fact Sheet for Healthcare Patients:https://www.[employer]/sites/default/fi les/product/documents/Fa ct_Sheet_Patients_Lyra_S ARS-CoV-2.pdf Performing Laboratory:[facility], [place] [address] [place], [place] [address]ARS-CoV2/RT-PCR (Asymptomatic ONLY)2022-01-06 22:48:10 Test Item Value Reference Range Interpretation Comments SARS-COV2/RT-PCR Negative Not Detected, (test code = Negative, See 09018-1) external report for linked test SARS-COV-2 [facility] PERFORMING LAB (test code = 79574-1) JUANPABLO (test code = Negative result for [...] of detection for this assay is 800 copies/mL. This SARS CoV-2 test is a [...] revoked under Section 564(g) of the Act. Fact Sheet for Healthcare Providers:https://www.[employer]/sites/default/f richi/product/documents/F act_Sheet_HC_Providers_L stq_RWMD-TwV-0.pdf Fact Sheet for Healthcare Patients:https://www.[employer]/sites/default/fi les/product/documents/Fa ct_Sheet_Patients_Lyra_S ARS-CoV-2.pdf Performing Laboratory:[place] [address], [place] [address] [place], [place] [address]ARS-COV2/RT-PCR ([facility])2022-01-06 22:48:10 Test Item Value Reference Range Interpretation Comments SARS-COV2/RT-PCR (test Negative Not Detected, Negative, code = 4296430) See external report for linked test SARS-COV-2 PERFORMING LAB [facility] (test code = 9832743) Negative result for this test determines that [...] individuals suspected of COVID-19 by their healthcare provider.This test [...] justifying the authorization of the emergency use ofin vitro diagnostic tests for detection and/or diagnosis of COVID-19 is terminated under Section 564(b)(2) of the Act or the EUA is revoked under Section 564(g) of the Act.Fact Sheet for Healthcare Prov iders:https://www.[employer]/sites/default/files/product/documents/Fact_Sheet_HC _Cjrjompbp_Bviz_YORL-CbM-4.pdfFact Sheet for Healthcare Patients:https://www.[employer]/sites/default/files/product/docume nts/Zyhd_Boiwi_Vybemcel_Zkzy_IPPQ-HjA-5.pdfPerforming Laboratory:[facility], [place] [address]YURS-DJPRNJL METER 2022-01-06 19:51:40 Test Item Value Reference Range Interpretation Comments POC-GLUCOSE METER 173 mg/dL 70-110 H : TESTED A T [facility] [address]20 (BEAKER) (test code = [place] [facility], 1538) [address]: Relocation Commissioner/Techni cuco ID = [id number] for CANDIDA ROSE BASIC METABOLIC [id number] 18:17:32 Test Item Value Reference Range Interpretation Comments SODIUM (BEAKER) 137 meq/L 136-145 (test code = 381) POTASSIUM (BEAKER) 4.7 meq/L 3.5-5.1 (test code = 379) CHLORIDE (BEAKER) 103 meq/L 98-107 (test code = 382) CO2 (BEAKER) (test 26 meq/L 22-29 code = 355) BLOOD UREA NITROGEN 45 mg/dL 7-21 H (BEAKER) (test code = 354) CREATININE (BEAKER) 1.98 mg/dL 0.57-1.25 H (test code = 358) GLUCOSE RANDOM 127 mg/dL 70-105 H (BEAKER) (test code = 652) CALCIUM (BEAKER) 9.6 mg/dL 8.4-10.2 (test code = 697) EGFR (BEAKER) (test 35 mL/min/1.73 ESTIMA GILMA GFR IS code = 1092) sq m NOT ACCURATE CREATININE CLEARANCE IN PREDICTING GLOMERULAR FILTRATION RATE . ESTIMATED GFR I S NOT APPLICABLE FOR DIALYSIS PATIEN TS. Relocation Commissioner ID - PIЕЛЕНА LPOCT-GLUCOSE [id number] 17:25:27 Test Item Value Reference Range Interpretation Comments POC-GLUCOSE METER 154 mg/dL 70-110 H : TESTED A T [facility] [address] (BEAKER) (test code = [place], 1538) [address]: Relocation Commissioner/Techni cuco ID = [id number] for LINDA LOGAN HEPATIC FUNCTION [id number] 17:07:34 Test Item Value Reference Range Interpretation Comments TOTAL PROTEIN (BEAKER) 7.8 gm/dL 6.0-8.3 Speci men markedly (test code = 770) hemolyzed ALBUMIN (BEAKER) (test 3.8 g/dL 3.5-5.0 Speci men markedly code = 1145) hemolyzed BILIRUBIN TOTAL 0.4 mg/dL 0.2-1.2 Specimen mar kedly (BEAKER) (test code = hemoly zed 377) BILIRUBIN DIRECT 0.1 mg/dL 0.1-0.5 Specimen payal salomonly (BEAKER) (test code = hemoly zed 706) ALKALINE PHOSPHATASE 76 U/L 40-150 (BEAKER) (test code = 346) AST (SGOT) (BEAKER) 43 U/L 5-34 H Specimen markedly (test code = 353) hemolyzed ALT (SGPT) (BEAKER) 25 U/L 6-55 Specimen markedly (test code = 347) hemolyzed Relocation Commissioner ID - KEEGAN [id number] 17:07:33 Test Item Value Reference Range Interpretation Comments MAGNESIUM (BEAKER) 2.1 mg/dL 1.6-2.6 Specimen markedly (test code = 627) hemolyzed Relocation Commissioner ID - KEEGAN [id number] 17:07:33 Test Item Value Reference Range Interpretation Comments PHOSPHORUS (BEAKER) 3.2 mg/dL 2.3-4.7 Specimen markedly (test code = 604) hemolyzed Relocation Commissioner ID - KEEGAN [id number] 16:54:50 Test Item Value Reference Range Interpretation Comments PARTIAL THROMBOPLASTIN TIME 29.8 seconds 22.5-36.0 (BEAKER) (test code = 760) PROTHROMBIN [id number] 16:54:08 Test Item Value Reference Range Interpretation Comments PROTIME (BEAKER) 13.3 seconds 11.9-14.2 (test code = 759) INR (BEAKER) (test 1.03 See_Comment [Automat ed message] code = 370) The system [employer] generated this result transmitted ref erence range: <=5.90. The reference range was not used to int erpret this result as normal/abnormal . RECOMMENDED COUMADIN/WARFARIN INR THERAPY RANGESSTANDARD DOSE: 2.0 - 3.0 Includes: PROPHYLAXIS for venous thrombosis, systemic embolization; TREATMENT for venous thrombosis and/or pulmonary embolus.HIGH RISK: Target INR is 2.5-3.5 for patients with mechanical heart valves.CBC W/PLT COUNT & AUTO [id number] 16:51:07 Test Item Value Reference Range Interpretation Comments WHITE BLOOD CELL COUNT (BEAKER) 8.5 K/ L 3.5-10.5 (test code = 775) RED BLOOD CELL COUNT (BEAKER) 4.42 M/ L 4.63-6.08 L (test code = 761) HEMOGLOBIN (BEAKER) (test code = 12.7 GM/DL 13.7-17.5 L 410) HEMATOCRIT (BEAKER) (test code = 40.4 % 40.1-51.0 411) MEAN CORPUSCULAR VOLUME (BEAKER) 91.4 fL 79.0-92.2 (test code = 753) MEAN CORPUSCULAR HEMOGLOBIN 28.7 pg 25.7-32.2 (BEAKER) (test code = 751) MEAN CORPUSCULAR HEMOGLOBIN CONC 31.4 GM/DL 32.3-36.5 L (BEAKER) (test code = 752) RED CELL DISTRIBUTION WIDTH 16.5 % 11.6-14.4 H (BEAKER) (test code = 412) PLATELET COUNT (BEAKER) (test 227 K/CU MM 150-450 code = 756) MEAN PLATELET VOLUME (BEAKER) 11.6 fL 9.4-12.4 (test code = 754) NUCLEATED RED BLOOD CELLS 0 /100 WBC 0-0 (BEAKER) (test code = 413) NEUTROPHILS RELATIVE PERCENT 69 % (BEAKER) (test code = 429) LYMPHOCYTES RELATIVE PERCENT 21 % (BEAKER) (test code = 430) MONOCYTES RELATIVE PERCENT 6 % (BEAKER) (test code = 431) EOSINOPHILS RELATIVE PERCENT 4 % (BEAKER) (test code = 432) BASOPHILS RELATIVE PERCENT 1 % (BEAKER) (test code = 437) NEUTROPHILS ABSOLUTE COUNT 5.81 K/ L 1.78-5.38 H (BEAKER) (test code = 670) LYMPHOCYTES ABSOLUTE COUNT 1.74 K/ L 1.32-3.57 (BEAKER) (test code = 414) MONOCYTES ABSOLUTE COUNT (BEAKER) 0.51 K/ L 0.30-0.82 (test code = 415) EOSINOPHILS ABSOLUTE COUNT 0.32 K/ L 0.04-0.54 (BEAKER) (test code = 416) BASOPHILS ABSOLUTE COUNT (BEAKER) 0.07 K/ L 0.01-0.08 (test code = 417) IMMATURE GRANULOCYTES-RELATIVE 0 % 0-1 PERCENT (BEAKER) (test code = 2801) POCT-GLUCOSE [id number] 15:14:24 Test Item Value Reference Range Interpretation Comments POC-GLUCOSE METER 83 mg/dL 70-110 : TESTED A T [facility] (iLyngoAKER) (test code = [facility], 153) [id number]: Relocation Commissioner/Techni cuco ID = [id number] for MIKAYLA PEREZ POCT-GLUCOSE [id number] 15:12:50 Test Item Value Reference Range Interpretation Comments POC-GLUCOSE METER 138 mg/dL 70-110 H : TESTED A T [facility] (BEAKER) (test code = [facility], 153) [id number]: Relocation Commissioner/Techni cuco ID = [id number] for LISBETH TTAD, URIEL POCT-GLUCOSE [id number] 13:34:32 Test Item Value Reference Range Interpretation Comments POC-GLUCOSE METER 80 mg/dL 70-110 : TESTED A T [facility] (BEAKER) (test code = [facility] [place], 1538) [id number]: Relocation Commissioner/Techni cuco ID = [id number] for ANNALISA CHEN SARS-COV2/RT-PCR ([facility])2021-08-06 17:56:20 Test Item Value Reference Range Interpretation Comments SARS-COV2/RT-PCR (test Negative Not Detected, Negative, code = 4576513) See external report for linked test SARS-COV-2 PERFORMING LAB [facility] (test code = 1344757) Negative result for this test determines that [...] individuals suspected of COVID-19 by their healthcare provider.This test [...] justifying the authorization of the emergency use ofin vitro diagnostic tests for detection and/or diagnosis of COVID-19 is terminated under Section 564(b)(2) of the Act or the EUA is revoked under Section 564(g) of the Act.Fact Sheet for Healthcare Prov iders:https://www.[employer]oo/sites/default/files/product/documents/Fact_Sheet_HC _Pqazevbqd_Ijdd_QYXZ-SnR-9.pdfFact Sheet for Healthcare Patients:https://www.[employer]/sites/default/files/product/docume nts/Knfp_Gjqzy_Anstkvgd_Nxjy_VGWP-DiI-9.pdfPerforming Laboratory:[facility].[place], [place] [address]Squxbn Xcwy1669-04-20 19:30:13 Test Item Value Reference Range Interpretation Comments Case Report (test code Surgical Pathology = 104) Report Case: [id number] Authorizing Provider: Bassem Abraham MD Collected: 07/16/2021 10:13 AM Ordering Location: [facility] Received: 07/17/2021 10:20 AM PERIOPERATIVE SERVICES Pathologist: Citlaly Mckeon MD Specimens: A) - Plaque, Right Femoral Artery Plaque B) - Plaque, Left Femoral Artery Plaque DIAGNOSIS (test code = [id number] 3220) uZzEwMzNcZnRuYmpcdWMxIH tccnRmMVxlcGljOTYwMVxhb bQkHOMiwOBcE7KoehnaTVui EU6vGC4xuSenvDZkcOUhPQI eWiZjw1gpv469kFAcf2dvUU KQclvpoRh8hRzmK93wk5Y5L hogI19weGBoUMP7BIKrHGSj eJUjZZCtDKE6VTWavXFeB1t oRJVdNY9ppcjuHBhiWSkjPJ FbxRJ7FIHniAUnL7VxBJGvN ButPOXfmdw9TtHrZk0reOCb eTcyMFxwYXJkXHBsYWluXGZ zOrEoQQ2hWqQYI7VFYMGYNs RRQpygXOFZX9rEPGFKPuOTK hPIRtLXTV9JBXvwHEFiaKDi BK3EJSvDIMHCBvBPRKxHNp5 KQ2tXGy3NPDWlZHbKEMUZDI QnccieYFUyEy8lYcDVB0CJQ CBBUlRFUlksIExFRlQsIEVO MXYJIMWNHTWNJ86LKDNpgig 0YWIgLUNBTENJRklDIEFUSE JBE3AFWRZJO8ZIPxBTPDNXY VBpbZPufJknnvAiELshe7Gc KLorIJKrOD4quPvwGMGvAZ4 aTZIiQ0nnqE3mgxf6KaQwPP GcDhV5OHMjpwR2Wvx9EEPbK Mtty5wgz5OfSZCyAFf2zSqh GoImMITly0sowyUkEiWcRYY gVMWbCQJuaUAkH367m9mfi5 drqtNtiRR4TGYoJDJ7ADwmf lDdisG5RQtmvSVxYeU1PHuy ajQsRPrljiWwfaAhQrw2EDG oF291QZA5tFpal1fkCIE7GB ZzQTGtObRuLy9vxIAaF898S HIqGLVHHRJejOt8ASGmzeDk ibAhsPFGl278H002y4tbKXD ahyGfjEbBwcgal2lvR177ZV BhcGVydzEyMjQwXHBhcGVya KO9DNKsUH6stjmaPKeaJKaw SCCwzrV7DQWtuTLbU0MyGOJ iER4sdxgfDQX4HPaaSYYvLW I6IeIfYPHii4Sofjp0RoLcv b7umf98BLH8k8RegIqzXHW1 LXS8SeSzHu1ejGMbYIZaQF1 oHdIqwHUrHUAtfv28nIoaHA eyZFD9JZGvneQik2Tve6rlL lDcynCfH4pnS3BiZHGcSUDd LAQfDjAprdFny9Csv3NzwKK vbVt5d5rgNEJdXXIazJkcy3 ahZAV3SKIajWMhV0gunZ4aF QFdGD7frmmsz1lmLIoxQPtt WYWyaDR1pqV1OLOryPBcR3T fmY9dNVLnJKcdOYRydve9Ah VjCb7hmPVczXfvUCqbTqmyY WdlXHBnbmNvbnRccGduZGVj XHBsYWluXHBsYWluXGYwXGZ zMjRccWxcbGFuZzEwMzNcaG ljaFxmMVxkYmNoXGYxXGxvY 4nqPiFiNhFmZlk0NPGmzWWr KRQzOdy2EFJqeYDjGYICgCg hzP1cGRZheBphnS4geGT2TN GltyExkOKUuT8aAQHCnK0oD vT6NDHnQif1QQX9UwXagJCb fX0= CPT Code(s) (test code b7vpzBFxWTWhgRO4MtYuQOM = 3357) bw5nbf0YoaKAnzAWeDEgbmY VlzmRqia91iOK4kZ47FD6cZ HUiVzU9VHDnnkW2Nvk6XBAw XJYjyZExD554y3dkw5ugapH wfMU1ePcuTVTjghqkBbL2PQ tbUHNqwvbgPLq6QXgbLKCyd EJ1NYKmsXWrL6GpUQHpIU3t wmc7VLT1UMvvCQIuGsF0EWP ixEOlDQZlhSkdFOyvn282HG K7OoSaXSFqmiJmcCjxmC9oS iCtHTY7VKQpWKejXAZ7JSEw MVgyIFxwYXJ9 CLINICAL HISTORY (test e5xbdKTiXVVnuKG4EdZtXCP code = 3356) wi3jvn1VfqUVgoGMwOSryuB BqbxFxdw70uGO8tU27UU8oH KPkFsY7QCOudrY1Ldy8AUEb GGSmoLSyS314r8yfz8djtdJ qvNZ0kOowEBNprjsbAfX4CH hxGOYikbonCSg7NZpnJVCfv BT5DTGosUWvI7NcXAWyDA2o lar1EYB8GLzyYRJwFhR4YNZ geAHgJHDbhQurZUsyw441KP X3YsTdBGBpwlAcpPmgtQ0bH nSjCUKZo4AjpdMfhBTvupHr cnkgZGlzZWFzZSBpbnZvbHZ wcflpDbtvCIPxMVfyQBB1JV JfYFD5ilQkj0NnPG07YEIcn GVhcnRccGFyfQ== SPECIMEN SOURCE (test j5qyxVHoTHJfmPC7FmPpXLB code = 3377) jj3lhp5EqtZGytIPcJHvcoH OerrCmrm87nQM5yJ62XC0mB AMeCmN8JJEdwcM3Vdk6ZYOk XGTltQQuM182r4vbo9gdxeO anJF6tNxfZSGuxbozNrG5PB kyVWRecwvsJZt7KMlxPYDax RD4MVJkwCOqX4QwSMSnXO8i gik9EIH0DLqiXXEiDlM9UHC ivAOzNZDawVdtMGnlg332MB D7UtIaXEOrpvPuoPbqrL0tJ kRhFNJDMnHwYzRcc3WawMOz scFwpedpARJqI0i6WAuspmQ jVj5hKVYlcF0hUSscCRL9GP D8TOFxTSC9MGMfyw3= GROSS DESCRIPTION t8zzuMThFEOsiOCoLqUkSIS (test code = 3366) eWRJsp4sgDHEznSZfNeNxMe NcZnRuYmpcdWMxXGRlZmYwe 3gmd344hYUdk9apNFPjXuT9 kWIfSAZaoSOaZ375w5fuh7k cdxHcnDV3BPRyNOY3IXkkkt FqjmH3MCeoaNZjMiR6PBeko eOmZPydfxLmjsCsDnq9AHJv E058ONK1oTzgb6bgDJT4ZJI dZBXnIzUhWx9qxDOvN345MF UuVJTIQFJtxHz7NSKmcqWqw mJqhQGQz653W363f0ooHOHh fwZfvYaOfmhya2fvN885ZJT hcGVydzEyMjQwXHBhcGVyaD W8XWQaAO5xyndcRgUyAN1yw fjxHkYhTZ0dsho4WoPhGQ8e cmdiNzIwXGhlYWRlcnkwXGZ oa1VataveKZ1lF5Rhr6J6mF 9maXRcZGVmdGFiNzIwXGZvc g1vzBKpTXjnn2EmTAO4dpI2 lBFlvUYeGROoTI73Uogfk3G zEepoHYK2QRLgvzRvz2Bqb0 uvWfEtwaEzM9buD0MlDZAkJ NZiREEgElSsidZiu9Rxn9Hl jKGlkJx5p4fzTORyUHRijOi th1rxQAB9JCKfG6R2cQDsj4 faYJzzNQMfsNP0hnmeXGyrC VUqobI8ilsqYTolRDWyrVW6 smpdWNxqADRvLdO6noqwWUn eABHhGSS2AFphc791VWE9WH xzYmtwYWdlXHBnbmNvbnRcc GduZGVjXHBsYWluXHBsYWlu XGYwXGZzMjRccWxccGxhaW5 pVaMoSbVxBNiyVQ5rQZVvF0 gueQTmUUEaZKPhI8fcTwCyu D1lzQamEHmkutOjCWKfAMTn O1XzewRhLSVcFHQhDJgzGvA rQOSmx0v7wSA1fEDugJV1cN VksQpjNbMoJN3ckOOiLP5aA IujYGtojoLqp7DvAA98zVWh ufJebuRxBcIeK1v9QHNqrY1 yYWwiIGlzIGEgcHJldmlvdX TlcBCwlwQdw0LrMRQ1XmSiI TCnaE9wsYpuynJbMkG6HKrv t3xxouUaGEZmDSR9HOCmIMW eoWGkzwfcEj9bJNUxZAvuVH sjdon0qWXlnyWalfWoU7vcU qMxIaGpKV27GEUaNLxeJSQg QB1xtWZfAiBdPTgfAQKoNLM yuVNiSVnbLMZqstzkdOi4MB EhV1Hps82yMQW5jqQkIZXkP PlaV4QoZ3gymATaiMyxpkCu sRSqq2KmuN7rARHvOVXlXSP aVHRbtTVrkqA2qEcgh57ho2 QdTHUZZYSwCJQlwaRxgTe8N QGjJWV4tH5iapSyqrPvo0Io jLa2vLInLEkeFYJiXZIhc8l db3lneukgSEDpLZjsfJTvO2 E8kT7zNomsQSDpiKQtINWiV TGwD3RqpfMhKXWrWOHcMMnv UfSeXZTmf8y3mJM0nOOrkGY 3vUSieHxyZvKqRT4tcMLcRZ 8dRUibORsmtmVnf0FdOK61q WJlciBhbmQgImxlZnQgZmVt z7VacVUvaIGmDXRmndC3zD4 6n5h6LZmcX1pfIVBxgWOhpO rhzgNhy1S7xT7qSF5uEZgjb Rjcjx3vEVGqlSsjlRMsVS7o XMU8jtexUnB1QqVlR25bsT6 rrDEcC6ToUMFcUTIdMQ7biX 6eSMLxDS8bYhjbZ59dgA2jP QzztTA1ZENlREEFiBAuo8Jy M2arSU7duKTes9BexOFxgGe ax8PjbEdpqhZjQWHaJHWbfj XmvRWmENfbcFNxE7N3cJ7pr tOlMVZyyGPtrqhhaULfvB6d CM22XRZyXVwaNXBtjZCsirB ddq1iETNpjSXkf3QgvVN9oF WvCJIsW2Lki68jIUMpUGXuo WQttMR1IEGciD0zHqOcMGYv sRwdl7wlZcOgTHTzvQQuNic nNKAfe50yCUYmexmoRZCkV5 zzkDGjBYHMgjP8skmkXOeRO CBQQSAoQVNDUCljbVxwYXJ9 MICROSCOPIC h0nrjNVnBLNqqZR2BlQtPVN DESCRIPTION (test code vg0ipw6ZhxOZvcKUpVNmniZ = 3371) AapiQebx52gUL2tD53FE9qG FVaBkQ0PSMzysO2Bzb1PSBj BUHkzCKdO240r9uzq5vammL mfLD1iTzkUWTzldlzXjZ4QQ jfDTPtidtqGXo7SMtxJWMxh TS0HVLpwYZdO7ZdFMTzPZ4y vuh5AKU3WQmwYFKwLjO1GHK nqEWcZFYqgZegFBrwu002JX N7KxCxEKPjrfLbzSfotP9jJ aNjGGEDJHYpDYKwtwOjsm7n GX1tYFSvhx9= [facility] Center[facility] [id number] 19:30:13 Test Item Value Reference Range Interpretation Comments Case Report (test code Surgical Pathology = 104) Report Case: [id number] Authorizing Provider: Bassem Abraham MD Collected: 07/16/2021 10:13 AM Ordering Location: [facility] Received: 07/17/2021 10:20 AM PERIOPERATIVE SERVICES Pathologist: Citlaly Mckeon MD Specimens: A) - Plaque, Right Femoral Artery Plaque B) - Plaque, Left Femoral Artery Plaque DIAGNOSIS (test code = [id number] 3220) uZzEwMzNcZnRuYmpcdWMxIH tccnRmMVxlcGljOTYwMVxhb yCjIGAnnRRhH5ZegcjsNHuv BT4bXM2pxCbqjGPhjBAnRAA iVxYne5zdv946aTWkd9feYR MKgttvmEc7oPrcY60xo7H7G tboJ46raTIrZWY0NUQwMMQq sFDdWNSiKNG9ARGbpEZkF6t mUHBlCG3jazblXRfsOBtgSJ MgoRS7SYKrtPVbR4WoXHXkK EfeJKMjlpj1EnXpOi5ktGHq eTcyMFxwYXJkXHBsYWluXGZ mQiTyIY8xTfIWW8FREUAPXx OEFooyUEAZC6rNHSZZUxYPT xJXJzOSCC0ZADujEIItsNMv DV3YHXyNINFMOfCBQWbDGz7 YW2gYIi8SAHBbZFrSEEURTN RjdlhhCKKwQm6tVgUSS0WKZ CBBUlRFUlksIExFRlQsIEVO SEUAPMKGEGAXP42UEYNuvzs 0YWIgLUNBTENJRklDIEFUSE XHV9YETYBFP7TJGwMSVXGZB LOzpVVrbUrhybPlQFytx3Si USppJGEiJG9zbRrjCHWwWV0 sAGRyR4pauF5iqhy8UhIvOP MxPmW1DNLvkfW3Cfi7GKZmF Fdwz2pln8GfQLRoVSc2lNxi QdToNQVjs7fjolMsOsKbTIQ aQFOjYSLoeLGmB326i5igd3 olvsHrlEA1REQwOZR8ZCusv hJkyvR0GFkyaUKiIwS1PAxa fgRkSZkmqxYwrxHnLhr3UHC hL755WZG5iNsbh8gtVGH3NY SiUEYkPiZhOb8zvDYbS866K ZXlSMMIKSRubCo4BMWngzYk tvCcaPIBm183I606i1gsCND vltAkwGzLkeibb5wfC861LV BhcGVydzEyMjQwXHBhcGVya PT4JCGkHE5voizhQRbtQHem TTElnmL6UYZvoZKvM9HgTPD zBD7aeycjMQQ3YCkqYXLaFU U4ZqLjYPHjn8Xxivo6SlXmc f1rgx00ILC3e7FumXdtHMJ4 TGW2JgLoLl7dcXYmIIMkAT3 gSkRqbGOfGSSkqz85oQxoRW yzOIH8OVLhufJsp5Kfa3fpQ tIparKmF3lxY2CyPZJtXAHm KNNvMkVemhJql1Lel3NqsFD gcEz0o1ztYRFjTSKopLblc9 vpXPC5WXXqhPFgT5cbhY5vC KYqKW1fqjnkz1swHUmvZFaf ACEpdOQ6alZ4TZPziURlB5S bfE9pGPDlCJleLUXfjor9Sy IaZu3roSEnkXdfZUwfTlwfY WdlXHBnbmNvbnRccGduZGVj XHBsYWluXHBsYWluXGYwXGZ zMjRccWxcbGFuZzEwMzNcaG ljaFxmMVxkYmNoXGYxXGxvY 0wtSaIoMqHzJnf9ALBooFRs XIFfNxk5KQDlpYLfSOGNeSz hkF5gRHQkpPwrtV1qiGZ6KI JdlyGspNQWhX2vQMRGbB9hY hG8YMKnHti5OZJ2HpWpjGDo fX0= CPT Code(s) (test code o7qczCNlDBVzvFV3RlHfVQR = 3357) he9cvy6YcnPFiqACaEJrqjW SjwhGnqr73bRP3vY64QY5sG YNoKqT6LSFbbvE2Yre0BLLm UVKtyOPoW773n5ssu7pjmdJ bnFZ4dZtzYSGhnznzGhQ3MP moRMLzrdfyUSl6SPfeJCZyo EO5FRJqnUEvM5ZsMVJmTQ7r qzj6VYS0NEghUDCyTbP8RQM geJAnKWZzkTthBHdsf575PO V9WhApWWPjokQyoKzsoM6vD tHhBUZ5NNSuMXiyUGX6GKVs MVgyIFxwYXJ9 CLINICAL HISTORY (test t3masRLiCTQvaBB8NiCeGWW code = 3356) if7epq5DzpWUawOGiETlzpF KvdxRllg36qSM3dP69QJ0xU HZtXtI0DLBukvV8Ffn6FDKt UEBmnKUqV208t8zsv8yhvtR osKS7aRixGGBrrfjgEkF9KD twERDseaxcDGe3TKzmJSVrr QI1JQYsgNXgX6AaHPVdPM4h pvn1ERE0NDjaSFAgXbQ2YBY nwLFzKRHycXdoNOuwk664TA V4LxRdWTMlmjFquDpprV8uQ dOmWNHGz8YmjeNuzCKhhzZd cnkgZGlzZWFzZSBpbnZvbHZ kepzuJbzfFVUmBWisTWA8FH NxHZN4cwOjv5SyZJ92YBLkv GVhcnRccGFyfQ== SPECIMEN SOURCE (test u7icgHIwFLUciDS8HmPcQLZ code = 3377) iu7guf5FujMIqoNJlVLvdeF EvzcMdxy18pVL8nF47UN8xO VPpTgE9WUWhwxR0Bkl9FCUa GRNuaYSvY535r9hwc7qhznB wkFW5sEnqILGpjpzcHeI3ID mdHVVdicmqZWc2ZQjzBTBjr AG7ZUGnhAFmE0XrYWPeGX6q wkn2MNC7PZtcQQRjLnE9ZLY nuDHcMXJteDxmKFfqe761OM P3QfTkJGUzrvRpmRrbqL2rL iEbMLUCEuSxAeYil8EqyPGo ftDpnqtoXLJhU6p8SIzsiwP wXz1yMCYsrE6sJEvdTKF4RU E2DQTcIBG3IJNpkx9= GROSS DESCRIPTION f0grlNDqFNBzdLAnNvZiJCZ (test code = 3366) bHBDsw4iwJJMmqEZeOjQlWg NcZnRuYmpcdWMxXGRlZmYwe 3qpu023rCTtu0ryXQNdOsA2 sOUtQYNmrQSjC886n6dnv5i pvwLgxNJ6CNGbZJO3BRphtl AlyrK5NHhbuLFzXkS2MLrfw pUdQObgfrOyzcHsCzl6YPHm L600LAF4bYduv7woLDJ3BYQ zFHLyVdYfZy6ejTAjC572WW SdYUNBOFLemNc5HCZjolPki zHzzQFWg197J241q5xpQOEd vhGtyYzBuvhcl8iuP917DKV hcGVydzEyMjQwXHBhcGVyaD D1MWSkAV4iwyadPfThAM3bv vbvYsFtPQ5tklj3YkLkQV7i cmdiNzIwXGhlYWRlcnkwXGZ xe2MxcwgxXY9hR6Ykf4U7kZ 9maXRcZGVmdGFiNzIwXGZvc h8anQLpSBibk5MbWHT2czT8 tRLnmNUfDNWrER99Codpe5M gQxwpICG9VASaucJvu1Yee0 odXxZvcfSkN6fzF9JkYCNfL IRfPUYdWaTesoJsf9Vsu8Gl yHQmjUq1s8atIVUdYLOivPh kh3nhONI7SOGdL8L0dWOts8 wnRLcuPNXvgWQ0bgfdGStiJ JIwujU9kpmfAKltGZLnpVU2 ahvoVNtpYSYoMkV6rseqDQv bVFOcRUM2IYttw780CIM8PU xzYmtwYWdlXHBnbmNvbnRcc GduZGVjXHBsYWluXHBsYWlu XGYwXGZzMjRccWxccGxhaW5 zLiZdWsWbWRbbWZ2lAYKeI1 urtCQfTXFqSMHaA4kqLcLih Z4zoFroTQqlzfVkBAGeCYPc U0SqxjVqSNFzHEJyOEykGpU eFUUbe6x2wGL6lWUmmDV6rN AqnIyiWvXaHI1xqBQzNX1jQ HhaPDawesItk1OcNP25sZLl cdWnthMdTtFoU4m4PTJxeI6 yYWwiIGlzIGEgcHJldmlvdX KcjYYkcdDbf4BbSCP5IwOgE SKyhE1qmFixfqQfBwQ5YSiq l8duqiLoQICuFUR7CTGyBGR nrGMgerkgSp9aWTJkRXlfSI nxale8dQQbcaWcmzFwB8dmT lOjGuRuYE86UKHtWAdgDXOd VS7ogRNkRqLzLRfgGMBhENW lnHArDNrnCLLxresfdGm8TV KgU1Gxv03dCKG0jpEpXULbA UahI2PmX6pxxYQpjNlvryVl iJWcn0PnrA0dUKLeWRWxZVX kGVZrsPUfohF9gSzwf41rv0 VcZIMGHDWpGLMvtpAzyFc7X KNlQWE3mX2jefCspyFgu7Ll bOn2vUQgVEhdXRJfLFVlm2u tr4aenprqPXCjVRawqCCxM0 C8mX0bKtcxXDLdfEFqSVJcT QMtW9EczpYlPXQqNFPwOBqx XoOcZWQml1p7yOV2zEIcsCN 6iQAovZwuAxVlSB9dhFOnFG 8eKSmnIQjuwpJts1MxTX92c WJlciBhbmQgImxlZnQgZmVt k2GzaFTthZPuKVBtyuL3cM4 0u1l6WLnsT3imPHEzvYLldE xwpoIfo2F2pJ2dYV7qZFpve Qdxto8cRVAztCjzbNFfKX9v ELH1lakgUsP6DxWvX24ugO6 vwTRmO7QxFOTnKCCzDZ9nyS 9hUXSrTT6lFumwE97xzQ8vN XonaZN7FBAjBGSYhZLpp0Dl Q0chDE6ufJRjt4WixPOgoTy ad3UmdLfjlxEgRFLdIWUcef GcySSkBLhflVBgL9N8nY4qa yWiGXPcoULmcuqceZKwaW9t RJ24BHGsRWkfPEDnzDKgtlN uey2uJKYdoWIyv8MitNI8qG DgMYGfL4Dws01mALEhCNNkx ELdgKD1LLOqnO7fZmFmJPFl xIcfo7faLlWwYKBchBMgPfn uEUSmc89nMNRdrutmJDWbN4 ggrILsATQHquB3wtnlXMhID CBQQSAoQVNDUCljbVxwYXJ9 MICROSCOPIC h0mxlUDbGCAvuYL1YyVhLEI DESCRIPTION (test code dt5sun9CusRBwtZYuDDvbeZ = 3371) LvlxHzxp19eJO6kJ55SZ6nW WImLpT3NTLdidP5Cfb1SUQf RBGqlZZiW663a7nyi6rpcaI tqCJ2hHlxYUComzitVzT2AM kcVZZjphqoPFi2YUujFHPxh JT1YRFzjLRrJ5DpHHHbBV8v wna8BNV7TZbyKOOnYxP5YEE kpTSrFKMnsKqeFBepv869LB L4CdDoYHUvmeRdvQhpzW8jN gWgSPFVWELzBNVjwfIcde1w CA8iANGzrv3= [facility] Center[facility]ise [id number] 19:30:13 Test Item Value Reference Range Interpretation Comments Case Report (test code Surgical Pathology = 104) Report Case: [id number] Authorizing Provider: Bassem Abraham MD Collected: 07/16/2021 10:13 AM Ordering Location: [facility] Received: 07/17/2021 10:20 AM PERIOPERATIVE SERVICES Pathologist: Citlaly Mckeon MD Specimens: A) - Plaque, Right Femoral Artery Plaque B) - Plaque, Left Femoral Artery Plaque DIAGNOSIS (test code = g9jhtJNvMDDuh1hqULAbxXV 3220) uZzEwMzNcZnRuYmpcdWMxIH tccnRmMVxlcGljOTYwMVxhb xHvEPWqiZVsQ4ZgzzgxGMsg ZK9sXJ8fwSqoaPZpgWVjUVI zWhRon5qkh929pTYly6ioFO SBbtqnaTk5rTdwX62pd3Y7Y skbR42zcZTrGGK4KUDwLLHd wBLmCQYhLLK8HSAahVZrA9q iLTRwYX6eapzrJVjnHFwsNP ByvSN8UOGxeBHgN5LwGINnF NapOJYvqpx3XmEpRu8ygFSk eTcyMFxwYXJkXHBsYWluXGZ hTyZaCH0fDmJYS2AZNEQVDx OBXvtaVFDRG6dSTSLMSlCBY mNRXtDFCW4MVWgxAIHnzVZe DN6FHPzYGVKBNgYQRMjUQu3 EZ7mPRm3XYLScHOjOQPVZHD BckduhBFKwNd5tCdWLC7CLG CBBUlRFUlksIExFRlQsIEVO EMNBPVHMVRRIA77DGRTmdmf 0YWIgLUNBTENJRklDIEFUSE YAO8LYJEDPI0GDSgWGHFYYN GKnkUFizQzrhdHoLSpyl4Vj QStbIQSgSN9clZtrPVAcCW1 gBCHhL6cxsN2atlh4UeYcHU SzPjV7NETojkQ5Vde3UYLgO Jhwr0qlb9JoARBwANp2aWce HhUrSLJux5onzdHdZtIlMDT rKYEoNXEkoMBtU345o3gph4 pfpkQsqSI9XEFuRJC7UYskn eLkdaY1XMhcfTIxArG5CSpt suDgHVslizBauoBbGze2PJT eG832JCB4kQool0mfLWN3WN BxQXQbVrPuNv4oaDYyY802Q ZRdSVISAJInjLe4YNWizjHb jcDcvSTGv386J328t1uzOXA qxuZdxSdHoykon6vhE325HE BhcGVydzEyMjQwXHBhcGVya QW9NGFuRT8upjaoJRvxQQgh VYVwrfA3SJJtuVIjG3LaNNT wJI1rfvsxHYY6HRgxNCJeDH X4NnOzTWXwl5Pyncr8HoSmn z1ohc41LCZ1v9FteWehLAK7 EGH4NnPzXi6xwZOyDUJiVR8 iVxSuyXSkHVZdaj75xYqqCJ wgQCK7NNHxhcUyo4Bpq4ntV nEukcOkG4cfO1EjMKGoJRJn SIRvWnDqprStq2Dui3OyrPW skMg9i8lcQCScWLLpuWcij2 kbHMA8XODjeFZdD9qbmF6nB CJbKB4rbptvm6eoKFsnGUdp RGKqcYK4uqG9SGLadWMyT1O hsI2uFFUxGDpoDJLoujx7Ig TvNa2erLMdiRggJPftGpfcF WdlXHBnbmNvbnRccGduZGVj XHBsYWluXHBsYWluXGYwXGZ zMjRccWxcbGFuZzEwMzNcaG ljaFxmMVxkYmNoXGYxXGxvY 7zzZgDdDpCrIsd2CAAacQEq JGPcEao0GFPnmMJaZQDBdAv iaA7tUYJanOcbcU8mmYD7LV DtmjTlhPBRiZ8gWDECoZ1jF tF0MXPhNvl5MCD1MdTmqNGc fX0= CPT Code(s) (test code n4twaIVxUNDanTU2OiXkJEK = 3357) fj0pno9NboWMprJRmWUhozK WoufFehw16iEF7nE95BC2eA RHiGkZ6XVSnuhI8Pcc9XKGk OPPcmEVzT204d6qbj7fvnuK emSI1aQmkGWXkwpqqSrS3YF zjZKWldqdcYRr3LNqbDKMzd AQ9YDPzjJVqT1SyMMVsKW0a pfn9EEN1LDcxXPMsWmA1SGY tmHXoEYYgkAvbGEsml038UG F8WzUmINOtqmYflAidhF4lP fVxHOD5INYpPNnsKKU8ISZt MVgyIFxwYXJ9 CLINICAL HISTORY (test u3llqKHlMIRtaZV8WrZjICO code = 3356) mk2hhx8YwgKXdfHCsYNuvdI AoikHmzm00yUX5oL20WX1jT GVtFnR9XEMugaV1Xhv3YYFq UZVeeHHyD981o6ezh3ygdzW tfQM7kGdsUWYsaufiKnE5IA reEEIvhvdnRKg3PXcxMHZxy NX5MYUfmCTfG0SuVEWrUO4n pwn5DMZ9XRmiWJXqWcZ4VHU zdJBfPBLnvItfCCwqk303FH D3CbGjAFLhwtJydLtunQ4mZ tHvSHFTw8QmgnZkfBTxabRb cnkgZGlzZWFzZSBpbnZvbHZ xkpnySjrjWZXuRSvbEKH2LE UqGQE8mgCvn5MlFO74MXEui GVhcnRccGFyfQ== SPECIMEN SOURCE (test i5fghFMnECHisEG5JuIqHVQ code = 3377) zh9aur5KjqEPvuJKtRNhofA QggrVxwb89yBS3dU81RF5cH EMeKiY4FLHyicU3Xaf7KKUl MTOdaZHwL579x4not8fwmlW axMX0lVvzIIHuhbcvZfP9JS ziSCYtkykqPEl9FIwwZLNkf HU0OCWrdPWyN0RjCVTuDZ8z hfi1BRH6THgdVYXrVjB5WIY ntERdSLMwjLbeVQfve108YN I3MoAcYGTxvrBnpSxwhE9iW xFwMCTYNxMuBhMtp0TxiCYr hzOkzcakEBXoV5b9LCitxlK cHe3vZRGsmU4yHLypIQB3MP O4ULDvNFK0FGCvem2= GROSS DESCRIPTION o3vskFDwFSWpmNZoUtDfURB (test code = 3366) cHBDww6ilAHOjyNUlLhNvMl NcZnRuYmpcdWMxXGRlZmYwe 6ugl415eLXtk6aaLLYcFbW8 zAHpCKTqvXTqS038j0ied2m bmaOgeAJ7FOHeMWM7HRwbbl JandX6TUrctZXtLwF9RUbbp vNwKEajlqFegeLwAho6QSDn O770TAI8dFaso5nlIUE6KDZ dLQDcAvGmEe6jiMCiH883YL RvVLSPBYChxCf2QBJzksLxz nTmoAECv846C372u1ppTCTv jeArwLqXanpkb2nwD480PCO hcGVydzEyMjQwXHBhcGVyaD L5ZEAwQN2xaugpGwRfGK1af bpxFyFoXL6fpju3HfTpBS5h cmdiNzIwXGhlYWRlcnkwXGZ jd7JwzmhdBW2oN1Bvm5G2bE 9maXRcZGVmdGFiNzIwXGZvc f8omSOfOLkdr4SnJML8bdX6 uKXvxKQdPHWqEE54Vaqhf1V xKfttVXF8PHZbfiFzg8Hik7 uaSxOkjnDaD8jpO4IvSGYaK LZwKLYaUiXolzCrp2Ojx4Tt gNYaeOo2n2hcSTHcUHOxzCe dc2keYWM6JJUuB8S4kDCeq0 vzCTkwYZBdrVL0aqpfLPmpF TDmmhJ0oonnGGwmSOUbbQF0 hsujPQbpKIZxMhD0dwohKZm gAPKcEOG4ZOpyz420WVC3JG xzYmtwYWdlXHBnbmNvbnRcc GduZGVjXHBsYWluXHBsYWlu XGYwXGZzMjRccWxccGxhaW5 tGtEoLiBuDMebUJ6dZPAqQ2 hdnTOtYQSjGRNdK1yoKeTvh O7ykVwgNDcwllBmILQpDHAe S4UcghUaIBMxLIUeLUugNiO aDAXhk0e8eVQ9cEZiqLH4fC KugHiuWcFrHI9mkIOeMF2fC BaiQBywbyBzs2NiKW16bNQe xqSfqbQoHoVcZ4j6LZXsiV1 yYWwiIGlzIGEgcHJldmlvdX TpcEEwbwFjh2QqTTY4NyDyT VZkoQ4nqHjpumQoAgG5EYtm d1stuvCcBCOfBLF1HUDpPPJ foPDjlmevHu4wRFNwQQoyAI qootd8wQDvmvZfnmMxL7icG bJzHaDiDW10AUKnHUsvNTTp MF6tiPEeFyDtQIenQDDiYZM swPZnEJhyUEYsaknuzFj4IV ZgZ0Nxx26vAFK4xtXyQFFiQ YboR1ToF9mkuZTttRyutaIc qRTia1ItjG4cREVpJHPlHGK iJDUvyWIjpdX8iNdeh54fa0 VrUUQCCLSgYNIudyGnlYw7V HEwUTE8sZ0hfiIchdGor6Mo uSq3tTWcJJyoCUAhSCEld3s td5ynmlhpNOGyZWbiuODhA7 Y1hA3bEyenWJMucNNuGQUlC FXlG9TzzrXnQJXwNMKqFKhb VzPcYTFht8x1bJH1zWJzjZK 6pZMboFnyRjLwUC2axNWnXG 8iBBliSDykeyEph5WsWT05z WJlciBhbmQgImxlZnQgZmVt a6FsvFTfnWPeGFFynoD0rN2 6u4h6QTwjT8jzWSMnfNIblF cvwfHzy6H4zJ7zRY1gIDajx Qoifw2oVMQpnXkttDDiUJ9r RMR5kojaEeU3UeZzW63niM6 rhGRqK0AnMVUhODUnBT0jyK 0hNLCaUR3wQtjgJ05ujO5nA XceiQL3AIUzBWYEeANbv3Jc J6keEL0ctLRpx7IcsDCvqPa rf8NiuBtyooUdPPCmFWItsw UcvSYbXThiiPEnJ3N8xW5fk pHwQQQqzGBtridwbHNtvB8k CA18OYFnRDxmBBHtqEHysdF qms3eUSJdvMSto4RuyNC5jB GuWORbV6Sxa71xYPUkLOAnh CCjrAT8XCZtmQ0kZpTjHXDw hAmse7xpEgDvSVTljRPqWsa iDVTou45eQDQptxioZFJzC8 vjjYOzPFNKpjH6rhztCXzUP CBQQSAoQVNDUCljbVxwYXJ9 MICROSCOPIC m6wuoLBkQPXiuSM9JfSiPLL DESCRIPTION (test code nb1bui7QoaKMdqDFbZIgjrA = 3371) OngzMmgx25rEA0oI20SU6gS TUoQxU1DAXecuR8Ryd0ACQe JCRgvXLbH230r5rft8yevcT gxLX9eQzxFKXyesvrDcD8VV hvHTWctnzmPHh7WFjuKOHaj BB5NGVcfQBlU0DdVCMsOE6p azj8FYO8NCliNYGtFiN9WLO nrKIkOZFmwZuzWEhxy413GY N1HnZwAUAmttEwjGbhaV3fX pDmSRNTVEBbNCIeujMbag0y ZF0ySCNduj4= [facility]im[facility] 19:30:13 Test Item Value Reference Range Interpretation Comments Case Report (test code Surgical Pathology = 104) Report Case: [id number] Authorizing Provider: Bassem Abraham MD Collected: 07/16/2021 10:13 AM Ordering Location: [facility] Received: 07/17/2021 10:20 AM PERIOPERATIVE SERVICES Pathologist: Citlaly Mckeon MD Specimens: A) - Plaque, Right Femoral Artery Plaque B) - Plaque, Left Femoral Artery Plaque DIAGNOSIS (test code = p2mckERpMRIzc8djSSAksSV 3220) uZzEwMzNcZnRuYmpcdWMxIH tccnRmMVxlcGljOTYwMVxhb mWfJNAgzQTyH1HqdqedKBdk YK4uII6gsMkccKNugGJpYQY qLfEmo0uyt938hWSxk1jqCL KCyqcwtNm2kQqzW43vx6E0N zdxN92isSZrNJD2AUXdTCBp vIStAPFrEAS9JTBgsBMrW8z tBISqSF0wichwXKgwIOjmDV SlbZA5BKZabASyH0YwQZJrF WkfTYAijyi9HyFiNx2bvGMk eTcyMFxwYXJkXHBsYWluXGZ rZqKkNZ2cYlLFN9FKRMCTWb XJLpzvKUNXY1jNDUCCMuGZA cLBAwGJIM2NZZodARNzlWEb IH9PILhVNZGXLbWGQCrCYm3 RH8rRUn6ZBHRwFFiTLGADAO PlrrwlSQAiWi8uJlJRV9SZE CBBUlRFUlksIExFRlQsIEVO UCSAJIIONLXUH00WPSLzdxt 0YWIgLUNBTENJRklDIEFUSE PEY6JSCFVWV2MFXdTATBDTS TUntMZvyJxjnkZiMCgjz7Mo DRdoQLAnSH6pxCmyNBLzWV9 tLMGqJ1bvdK1dusp3GdBfKL SnFmA6ELTaczP8Crs5RUZkW Pqbu5pnm2MoQDSaYSb5eZvy JwIpAWCee6awkeBsYvLjKUA eMIMjFJJzwLFlE894h7ztr5 fjuyYbdSU7MRLqTRF8ONhkm lUlfeL3LFhadXNrPqY7KCjb sxFiUTkjlfBbssHaTrh6UQB uX007PRP5sFmfi0vqOQT0DS BaIWNsWaRnMq6irQIqR508G SKsCOCOUGRjeSg3QXVsbaQa crVhgHNYh383E101e7rcXBI zqsYbmNaDfncnp0cnS827SE BhcGVydzEyMjQwXHBhcGVya VV1SCHvHY9evgggLCuhOYdn URKtckO6DZBegLPxV3RnTEG oUS4fmgtcUKL8KRkiTJLoZH A7WpVrFBMau5Gifgy5LxJdg t4zzd11BTX1m8YeyZyyCSI9 UZQ1BzWkDq0gdCQhOEBqQB6 iMeOrbULdBAPzpl63wZkyJV vjCGJ3KZYdctYdj4Sfu6xtM sXjkaOvD4xsI6VmEHFlYWLs YWDbZpAxikLld9Lgi5BxwBH vuXi3h1jqRHLxXUWbnYtyj9 naHVI2LQMcqZPdV5atlU3qM YJzEW1gygduf5sjBQzfEYka ZKZcpIM1luH3UQPizUSsX0I kcQ0cGKKvHCgaYMRvlxa1Xe ZiCt7pcXGgqTwkDOpjLjfhC WdlXHBnbmNvbnRccGduZGVj XHBsYWluXHBsYWluXGYwXGZ zMjRccWxcbGFuZzEwMzNcaG ljaFxmMVxkYmNoXGYxXGxvY 7bjKzKcDwUhBhm2UKWoySJf OSAuDrp7PSIfnYRdESCWmAp whR3fFHPejGimyR5btEK4JO ZpojBjdTHDtA3aJVRRoB4zY nJ0JMRgRna0BXU7QoNdnFLq fX0= CPT Code(s) (test code o6ybwIHiUOOhkZF1JyKlKNT = 3357) cg8dzr9XwmEOvpGZtADxxjZ SgpnCryz24xYA0gI84YX0jJ DPkZmE8HJGjvrG6Vdy2CGJb RPZrfDErB298o3zwp5abptK rbSP7zPxnSUOoluykEoM0DG mfBGTylkytORk5WJsvMDAcw SZ3KRFkuWVcH8FlRUEnTR1y vsi0RQU2ULcyZIRvGuS8MUT usBEcNDKmzVrmWBrkb333LX F3SjGvSVTneySzrArkrU8gG aAeJLO5HTQwYXflXSD9JUTc MVgyIFxwYXJ9 CLINICAL HISTORY (test z8kwtUEiNJOxkPK8KhYgYME code = 3356) sd1yhm2TsfXWqzSQiSVzizP UjpqNgvq20sHH9hV50XX8cI HVlOtI4REVyibN5Bzb7ECCp HFYqcHAeI060c5snv5wspeF rpNP3wAjsPPZqektcFbQ6QV lkGJIilkvpCZc9GFmmLSSld YE0AUHuiTUvS0BbYXLkND6r yga1YPR1KEzcWIOiRpO5QKL wmDVdMEAfaSrlBTkmj618UJ D5UnZhYSFxyiLlpSvjzL8xC tKvDKQRi1HdrtAcfHSffqEj cnkgZGlzZWFzZSBpbnZvbHZ ayxbkXlrvAZGrMFgyWSE9DR JgSOF6jzAtr7NoWN96OKPql GVhcnRccGFyfQ== SPECIMEN SOURCE (test p4grbORtTHTfoUH3WdIfKNJ code = 3377) yf6dcf8RfnNPbyJBiGIgysX TnxyJhrr89fDI1cW79LT8yS NGkHgJ0ORNgeeY4Ewo2WXRp WDPmxKBoM193r5ycp1mvokO aeWC0yTtoNXSffrbcWuA2WE jmHDUbdwdmFCk5NNpbHAShx VO4EYOvaFQpL0JgPPDuMD9b oeh4WRB1MQcoEWXkDqH9DSR kgMYhNDJcdSvtZQowr238QB I3ZlKkARDuhyTrcXtxyC1pP bNnVFTNKmFqTwQbj7DjrVNq aqEkfcpcFTHsY1f0ZOfstgT lYr0bBWBmxZ7cHWgiSDZ3BE D5ONQgVEI4GUDwws7= GROSS DESCRIPTION s7jdaKRyKIPtvNOcSmJyIRO (test code = 3366) yVEGcd3ztRJTnwDKlNoMhPr NcZnRuYmpcdWMxXGRlZmYwe 6zkm958tDRxh7drLJVzLlQ8 dLKpRKJqjYPsD839q8xbq2a pgdWiwGJ6MVZzYSR8NYubzc BadiP4XKkwcWKhRgE9JDnyb iOiSLqfnkItcrLgFlf9TQFx P815ESR5yKlku9jwWXT1OBU gSANlWaSoWw8szESiD399SY EmRUYMZBCbdXv6WTLwsrUed wPcmOAPj950X028h2wuGVDz wsOzaOtHtcnou7npB807PUW hcGVydzEyMjQwXHBhcGVyaD H8IBPyIR9nkfuaTdAtSU2kn bjxGaOnTK0qdch5JqZdND4s cmdiNzIwXGhlYWRlcnkwXGZ qv8YdaniqHU4bO3Azj5C6kL 9maXRcZGVmdGFiNzIwXGZvc q5uhWKbRIavf2YkAXT7eyP6 iOXzjUXxUUHbBO66Hhzax0U eQyfeJTY4QIDdltKoq4Tub8 eyCzHikiXqK7urN5EhKLVuV XBrGRRuYtGthcChs6Pop8Cn hUYtwKr4y4dhUSYeXALnnZr hd5cpBGH4QEDaF5C1mBUiu1 zrJOgbAXMjyRJ6fageWDyiA MCqroK0azrhDHgjKJOdgGQ4 byyaCWfvPUIsRvV7yumwWVs sEJFeHPD7VCtev932MHT0KI xzYmtwYWdlXHBnbmNvbnRcc GduZGVjXHBsYWluXHBsYWlu XGYwXGZzMjRccWxccGxhaW5 eZmYdFdBtVBckXW2xDVOzT0 aeoXQuAHWsZDOhH8ruXrSii I9rtCrgBLovijSyQVTwQZOj E3JvtyMnCRZeCEKzIKqqZmT pLMIrl9j5yLO5eBXpoEV4jO CkyCeaGyKuVT1paMLpOM0kU LdfNXncrdHip1EoLA08tVBx veTzxkBgIgYlH8i4GGZmcU4 yYWwiIGlzIGEgcHJldmlvdX ZhrSTgnyVbl6MgECA1BcEiH PDitL6zkBjhcmVlZrO8OSho a5qmrnUfJCNnZPC5YOCbQRB giBFqwmbzIt9cWNJfWSuqGI qulyh5gFLceqZcgnNyP2lyR wDlSdNlXT96AMTzLZxeYHIl DH3jjTHlKgIlWWsqATPoJSJ exXOrMPugPCKogexhzWb5UN KlI5Uae58cFQU5uqKpDOIlG HuzY5ApI0kmjGMchAiuxcUj hRYqb5TtjE6eZAVlQFBoVWE tHZNusVWfgcV1qFdxs18ir1 JnQAMHQKNjHLMqtrEtpTs6V KDlNWG9sN1xzwWpsrBaa3Zp kKn6bZVbUJowVMAvHTIpg7x gz6aedahgREJlGAriuBStD6 R3sS3cKojwRUVbpNJzRWFlY HUvR5JlsjYaQASkCJOxOLvd MsKvMDRnk4m7pHO7pXMidWK 8nIVqoPcmPzXcTY2nhHZvEG 0zAAcoELsoosErd1MiXG32t WJlciBhbmQgImxlZnQgZmVt e7MptOSmuZCfEGOmtdV3uM2 0r0x5QHzcV6vgLAMvcKZryO qfdcRwd9Z9bO8gKR9rNHuwz Ecvcm7bYIFttBbtgRQeIB9j WUA7fblkQuC1OiYnT07luS6 ojZZcQ2OxMPXhVEZfVL7hbE 6vPZNvER1hPrytZ97cfX7iN TqxgXH7FYLhALRYfUEgi9Sg A7axRJ2qhHXch8EbiTJyqWa rv7PdrAtyimMkBHFsAJCetk KmqJRdIIuokSRgF7R5uV9th bOrSBDnpYIoymxhkZWhtI7s MK12XPKbPRnwADReaEEeewZ gdm0qRWNvmTGtb3YwlWP4lH UeQYSmX8Pgz60zHNXyTNQyp JBzlIJ3VJUboG0gRoVaVTPs qNouw5wyNwSyFFUugCBqXrc sBZFri09jTHWfyakwSLWeB5 wcoMYuNGHFwvS8cylnKKfAM CBQQSAoQVNDUCljbVxwYXJ9 MICROSCOPIC y2qkmJSxOOZszKT0UpYiQBW DESCRIPTION (test code ju8fre3VdjPOhoOGmUSswcF = 3371) RxgtCawp00cBA9aM19YQ0lF QVfPpR3IMSobnJ0Ice5SGKn UZSgcARsQ878s2fyk0nvbdO wzAX2mWceYPRbtdlmTkL6GA vzMHCepmaxVCl7APyoENQrs ZZ4KTVaxLChS8QiEHBsYE5b osy5OMD4VMqnRCIsOqU7RLK duGJbLWJhlSujBGrhk788EB F3OoLxLJUercSwjSpuxB6mI xNhCTORULTbNPSdrjSogm0x WI2dEIHspa3= [facility] [id number] 19:30:13 Test Item Value Reference Range Interpretation Comments Case Report (test code Surgical Pathology = 104) Report Case: [id number] Authorizing Provider: Bassem Abraham MD Collected: 07/16/2021 10:13 AM Ordering Location: [facility] Received: 07/17/2021 10:20 AM PERIOPERATIVE SERVICES Pathologist: Citlaly Mckeon MD Specimens: A) - Plaque, Right Femoral Artery Plaque B) - Plaque, Left Femoral Artery Plaque DIAGNOSIS (test code = q6ggaSJyDPIiu1moEOTomDR 3220) uZzEwMzNcZnRuYmpcdWMxIH tccnRmMVxlcGljOTYwMVxhb vSwXFXaiQMrA3YsveswZDpb JY7lFH8mzNnvuIEcfZOzUUT aRcHdc4ksk795aSWkv8srGL SNivedvNi3tKkpD50zt2Y8G wgtP69igQZhFRL9RFLxFTBq jONpRGUcUMX9KLWcnGPrM0k dUDPtWP7rexcyNWxeVDatAV VeqRX6AEFfkBXmV7DgPDGsI WrgEQEtbyd8QjHwNu9uhXYi eTcyMFxwYXJkXHBsYWluXGZ qXtUgDZ8iUzNKZ3LAKFEZRd HLYogwSBPIW0aMFFSABqSKH yXYUwIUQU9XPDbpENZejUMx GP1OLMxCFCLABcYDAChQDl2 IQ9sBDd5WTCTmGMyZKTWKOL CyprepPDKpHj8uBwSMR4UPQ CBBUlRFUlksIExFRlQsIEVO XMLVGATQICQIY47VJVBigbw 0YWIgLUNBTENJRklDIEFUSE MIR0WHQOZCC9BCKnBBDGEQE YAvkGXrqRwhcrIoAKmib1Gj RWogAURyNU6lbNrnLDUaLB3 oHUJbN9yydU5ifmu9UiTlGC XsLzD3CVLotsF7Qfn2TNGxK Fmzm1kal2UrINVvTNy3sJyz KrTqJPRrp1cmjrAgQkPaZOP cRJHzOCPffJAgV837v4tmv5 mfkrFkvNL0PYYnOPK5YHjyb aIbsuT3GAodfZWyKjB7KTki ouLjLCyxvsUdmxRrKbe6FDJ aY829GIY2oIahs3hjHTW7LE HeNBKaQwBnYe2hcAHfB576K LOqDSDUWAIvpYn5UWQoufJw ndUtjDUQw874O802k1qsKSF kswRfaRmHbqpue2toK450CN BhcGVydzEyMjQwXHBhcGVya DX4RSCfUA4qpsmcOQxmIAal ZAEyijJ3QODnyLIoE8HcCMG tCW1gnadaFTS2FJrzXKFtAH G1JdNzQLVup4Yyqwa4SwDfj e1gej92CBK6w9BwqFdtGIG9 EZM4LsVtBa7veDHvAVMrIL2 lWmIwgVXvIXQbjn14aWcnBX ayERR8RPRfxaRqi0Uau1kcX fDrujYwJ0ibX8DhWJJnIKVd RCFdSxHxazAmq2Wom1GnnHR hoKz2r2wmCUDuMEGhiVkuf4 vyOPB0JAKghVMaG8cseW0hK BIuYM7tlgkfa1neWXfaUFds ZSYuzVK9vxA4ULAxbKYgX0J qpX4qYMJyRDhfBZQcwpz5Yk OeUk0ncXLfkPulAAueNbmtX WdlXHBnbmNvbnRccGduZGVj XHBsYWluXHBsYWluXGYwXGZ zMjRccWxcbGFuZzEwMzNcaG ljaFxmMVxkYmNoXGYxXGxvY 5opCpKwWsOnHwv0DKIulBCd COKyGyf8CCZuaNNqURTIcJt hrV4iLKNjnJwquM9jrTF2EG AbnnKpnELOgY4kOSXHaL8rL rB4KDKzUte7AJC5ZmFjqCNz fX0= CPT Code(s) (test code m3uxuPQjINXdhMA6EkVbMCD = 3357) zh8lrx0JawYPjcODzVAfowY ZdqaLuoe45ePN0oN45HY7sA HWlPjU8FRUkffW5Cue9ESQn HTQjnVDcM388c4ynb6uszsC drJV3vLhwIKVfpyekLbU6DY uuABUkwfnjVZt4EPokZJGrg AZ2CVHymZViE8AwMCJxTN0m zhe6VLN1JEanRTPlPyB7SQX tzFNwROXhqLulGDpia151UP D4LfNbVNJzczUfnBrlsQ0uP zRyDIX6SDJkEKdwLTF3DAEs MVgyIFxwYXJ9 CLINICAL HISTORY (test f4xxfAUeEMZftNX3ReNcHXI code = 3356) zq7ksy2SnvKXetIHwYCnoiY NgbcLilv18aPK6bZ54HO9eA QTiDpS7NNTdpcL7Esj4OFLi TZQpzOFxU884n3jny1qdhoE rmYI1gFugZBUejkmdQbH1BT foHROlxyfvBEs7ZHaiETYsh PB1IWHboKNeT7ZpAOPyID3f kfz1SUP0JTegFLTgJvA3VTZ byEEuMJYilYhfXQbim430ZO A1YxQyLAMhyjOnyMvohK8zD vXtNSGNj4ZvgbXssKOzwqVi cnkgZGlzZWFzZSBpbnZvbHZ mkvuiQeuhHBBzMObsGFG3ZF ViPLX8nhXrd0LxHK63PWVbh GVhcnRccGFyfQ== SPECIMEN SOURCE (test f1wduQIqKADlyJX0LlGiPQR code = 3377) zp3tfy9IdiKXqwYJeDPhqpR KhmoNbdn95gEJ7lT94TS6wQ HVmRcJ1TIIudiI1Igo6VQPg VANrlGMpF817t6pkl7vkvgP vbRQ2zUvlAMGvwwvuRzD7ZK pfAHNtzgkkXXz1HVctVDPjq XN9MGEwcQAoQ0RrPSJlLT8z ivd7VOO3TQrvRKCnXiF0QCJ tqZJuQDRpcGkbIDkdz930QV T6PxUvDIOgcnZdsCbqfJ1eE nNrAPXLNqTkIcHmh2LxgNWj weRznphsDSRfV3p1FRlxwfV xFd1mXGRkgK2aBKdkGYP9BL H0GQOgTIK8RKXajc0= GROSS DESCRIPTION z7pkcEQsBIKdrSTlAnAwBSZ (test code = 3366) aLGByv8jcRILrmSJnFmHrNp NcZnRuYmpcdWMxXGRlZmYwe 8dsk603oWLrl0jhWTWvNnW2 lOBlZNLmeKPzA547x4kzn7m ewzZcdZS9FNQjYXU6UAfvci CaxqT7CUheiTRcLnL2SKwmi wFaBMqhfzMoyaQwFyq8ABYd T217RHK8iHkps5twBWE3NKV tIHOfWrTwCb4kmWSkL776GW RkDYGKNDOunYh8TCTuffDgy xClcPMVz404D509f3kfGOUz paNvzDqGhaogy1izM587LDN hcGVydzEyMjQwXHBhcGVyaD V2OXOxSN4qjmkkGgUuFA8my tasLjVkGV8ujtw7IpSpXC0h cmdiNzIwXGhlYWRlcnkwXGZ oc4JkhhypEM6eJ0Jvg3G5mE 9maXRcZGVmdGFiNzIwXGZvc n1qvCDsXMups9PtFET4lsF0 tNSbqFGvLNBnVN02Nkghk0O dKmauUHY7QPGfshWpx0Pzb7 dfMvKczkRnG3blY5ZmMXQvL VRlBYIjPnUkskIsk4Vtv3Ks eKCjeUe4b8xnWGMuYFLjgVo vf3fmTFZ9CXXrA2E7wELbz6 inRCbxWGIbpMY3doxqOUbuH FEimpA4gbtkBHxnZGWnvNQ7 pkmgWVndHXEmAkW1guyvJWo iKBXqSWB9KBwzc898FTJ0FJ xzYmtwYWdlXHBnbmNvbnRcc GduZGVjXHBsYWluXHBsYWlu XGYwXGZzMjRccWxccGxhaW5 jOmItAkAqGQjpDQ9mRPLfG9 dapUYmRTSqNKQxT7gdEuKkz C5zxGlsORdjrjPcHCRyJWBk J6IoiqSxXQQvBQDmPDccBzO yJSOrt0v6hVL9aJYkgWP2vA IdeUqzIpZoBX7srTBtFZ1pT FbmWQyoleGqv9PoES06sYPg aiEyzxUxCvLoF1b2ZBMdeH3 yYWwiIGlzIGEgcHJldmlvdX MisKNervIfn7LaXGD5BwRfH RRekE7wfSklgjGbZmL1KCpi f1mcrwMmTFPmQSP0EXJxUZO ldTMrcjcvDu3sFFZiEMukOI grnfn2oKRfvwHuydXtD8nnN wIaEzWsAT53SBEdGThhPCKa CQ7pgMPiPiBzALzhIINbENY piALmODywOLBaayseaXw1ZT OsX5Qsf08tUMW6aeEyEUOvW YixV0WkX3zkqHIwxXfersEh yJVrx9ZvyB9kQUPsFAFmXND yZKDxhAEhcjR8uWbky54hc1 LgRKFSNHDpWRXkyuBfsSg4G ECzQVY2pL5mbuQhghRxz9Oq jOh1xBOtQEmeFJBqDZKlr7p yq9jodcxvZQSaQFcmpLRkN8 X3zN9cAtqeHJWupPMdVFKnC UHeG1BpgwLbNUYeHXDbMZrt BgHvBNGqs2a9wRY9gJQmmTZ 1pJPncSpxHhJcTX4gmZHiTT 1yTNqsBGpodvZwk1HeEG03a WJlciBhbmQgImxlZnQgZmVt i0TgvCLzgSXqAOVdqiZ2aF0 6w0a5YHiiH3mhGGNilKOilK nnkwKmz4P0pN9jUS7kLGavn Azdva2rNQHrjVphoLCsWB1j ONE9qwuiIxP8GlKgY45sqE5 vwRIkR7PuMMPqYLXwYZ6tpJ 7uWRHdOX6kWbpzF47zcC0uV YvifMF3DYLaSCILtCOnp1Gt B5qeNX4rcNEux0BrlMJtdDh zd5WlpQgsrxVsBMFjXRAaya UybPUmZCcmdNBvE7S8fX6fe sFeSUAgxDNeqyfnoZAltE0b FS87ZMPcDTsqLGGswBCuaxJ ums5uPFKzpEQkq2CtsAU0oJ HcTSKjO5Rba14zTFIxCZQgh SYmuTU6LBTgpY0lVkJbAFHx mGigb0xkQuQwKTDcxLQwOan hDALip15yHCMbatdbENLcI4 mtqNPzXBFIfvG0iaftASoYN CBQQSAoQVNDUCljbVxwYXJ9 MICROSCOPIC e4eifXPcZWMvnJU9AwJfVPN DESCRIPTION (test code at3dgl2NozIKrfCMkSWscpQ = 3371) HlozCbxd88eNA9lZ02KS9wO QRzZgP8VWNhfdS0Quh8HCXo TEYebANpJ045a5yub7czhfE vtHK3jXfqKFTrtjhdKtU9UA bdAKAjjabjKFt7REpxMGHqw XL5RYIzxSNfE5DhPSHnZR2r tnh8RNO7OTvcVVBpJrB2OJL fbINtIBMxkVniZLchb460IH M8NiXsXMNxloGizHjcyA2gH hTkIEFOJILeDUZshlDggl1o ST4xEGRkzm9= [facility] 19:30:13 Test Item Value Reference Range Interpretation Comments Case Report (test code Surgical Pathology = 104) Report Case: [id number] Authorizing Provider: Bassem Abraham MD Collected: 07/16/2021 10:13 AM Ordering Location: [facility] Received: 07/17/2021 10:20 AM PERIOPERATIVE SERVICES Pathologist: Citlaly Mckeon MD Specimens: A) - Plaque, Right Femoral Artery Plaque B) - Plaque, Left Femoral Artery Plaque DIAGNOSIS (test code = [id number] 3220) uZzEwMzNcZnRuYmpcdWMxIH tccnRmMVxlcGljOTYwMVxhb mOwFZTbpSKbE2ZaiatmROku OV9bWA6cxFtaySQbwWHbPVB yJcMyb0ljb839zBXlk9ddEL HKachdfRk5eLntB76de7D0Q brvI50tkWYfNXT7PLJaUWBr bHAcROPbLBV4RIAwmLGjB1c uMWYuHI9vnisbEReoASfxIU GnhAD9RGGkuVGgO1EjZOInE TvjNCPawxl0FyOqPw0ltHOc eTcyMFxwYXJkXHBsYWluXGZ tNgLeBM6dRsTXF9BMZRKEOh XUQouqNMOKL9tGZXWFUqZXO kQSRtVFIS6QBCjyHJFjsAAn DE3BEEkMROGKKqGOWAaEZx2 WT3nCJz3BCYEfTYsACEVFMD WqfvhqZWLtNi0xFzUSA1TDB CBBUlRFUlksIExFRlQsIEVO IKIWHKGFRUMHV43HIHEtmse 0YWIgLUNBTENJRklDIEFUSE OFY8XEXOVGM2BREjOZSXCWK YQucMExhNcccmYmMLnlz7Op FMmeZBVuNW1klHxfRFLaRV4 iDLSeV7nwxU8mqij9KwKjBS HcInD0FKQgqfK8Qyx9BILuJ Hzjl6dnc8VhHQOkYOp6tUet CiGjRMAun1itazWfQiIgMHT qQCFwAZVblNAdZ058n0fky7 isfbWzvAA2ERQjNXL0KYzfz nJqyzM4XHsgcYOuIpV2NBjg tgMpKFpoftPeruAsWgu5PQK nI648OUB3sZppv6jtHKT3XT LuCXOsCiRzJt2ajWCqF266E SSkNUFPAAQlyKh1IHGigyJm mzCoqRGKb892G857z0ppFOW wjcTztGxWcpvpb4gkO031OB BhcGVydzEyMjQwXHBhcGVya DS4PCErHU8ihwdnGZudXSca RMFggkL9PALhiVXdF3BwNMU hCY1dzdgxZWN0IUhaKXIsHE Y2VmIuVBDom3Hbuyo1VrWol o4bta02IZO7k5HnbEbcMRV7 YCY9ZuRtBt6knVUkNVHnFB7 gJgZoaSKzJUHfqz49sTzvNZ wvZQM2ZLGatrPyz9Mbz0jnE xRvtiElN5haF1OpYTEoJAKp IIIzIyNmgjDlt2Wxn7NfzHT mhDm6c5oaEQKbNMTlhVnle6 xrBHV9AOKhbZHuK6aksN7aT FMmDP4xubjpu2zxLGbnIWmr ONOvzKO0hyO9BMCfpYBbZ0W zsU0gHXYbQVdgVGFwyjh0Fe WgAy5voQIkoWgjTZbeIxlgA WdlXHBnbmNvbnRccGduZGVj XHBsYWluXHBsYWluXGYwXGZ zMjRccWxcbGFuZzEwMzNcaG ljaFxmMVxkYmNoXGYxXGxvY 9ujHoVkIjHhQxm7ADKpzSIy PVRtDeo9YIPjtMWyZICRcLf jqO7pBJQjhLygiK0mvLW1RG BuzxRcqAOHmF0dXHOPdM1dR iD1OTBxBlb1IMX5CxAmzWSh fX0= CPT Code(s) (test code m0glePYaMRXcmCQ9QpCkOMF = 3357) gc3ujn3ManUBqcPAiUOlycB KzubAhvh09zGA6vJ03PU6jP BZzXwI1QDFudhA8Gzm5NXJy JIRzzUVuP197v1isz5fkiiC nhCG0dBxkLVEjtpybXsA2MJ bfJZRblzqiPVs0NVifNNSvr AG4HYFsuNCbT3SmTYUmYH5d vwu4ZHP0DKfwXIMwQnG5MAR ojBOjFGZvaOiuTBuzm649NZ O9TqCaYQGjntVmkUznfG7nC yEgEQL9JWFvUGmaAXG7ELMk MVgyIFxwYXJ9 CLINICAL HISTORY (test u8rglQXlXPIzzKQ4GeNfYCB code = 3356) in3beq5FfzPYykUKnQQrwjI IcohSpce83gEA2jH37DX8rC HHfUaV3DPPgadC9Arp2VBWp AMHyaNJiA652h8son9oiviO lmXH9wFenCZVgsypuDoE2SD xcKYHpfkevDWj1HOxnOTZdb MW1WURjjFUzV5UmJQXbHM7z pmy8WAE5UZfqLZFkDmL8PHS dzQSpWSOveCvfIUdbc281HP S2ApNhWCVnaaVdjIchiD9wF tLiDNAHf0XzroYltNZtzgLx cnkgZGlzZWFzZSBpbnZvbHZ wayhzRghgUUEqCCcnNXW7FX WmOVY2zlZwk7QtRH43ZYBcn GVhcnRccGFyfQ== SPECIMEN SOURCE (test m6szyDOrLDFyaPF1UcIfMUD code = 3377) pd2xdy4ZzgAZtbDAgFGbibH CpafNiqj86oTQ2fI30TP2iT SQrJsZ8WNMnzsN8Oxj1SCGq UHAgnNTnH824g3vnp7hrxoD gjKB9lWjiXPByogaqOyN7SX pvBROensgoECe9TLwlSPWxs PU0VFNthHVmW0YjCWChHH5i yoi8RNY1UMgjEFSrIgK2YVA ejYEjQJHmmAvzNGikd028HB U0SpWuNVDlkmRrgFmxjM0nG mRcMIOJJaVgBlMyk9MdzZLr lbYfvzmwZDSmR3n3HDejilI nEv8pODXiaQ2lFVcyDPC3KP R7OWOqPEN3ADHclg4= GROSS DESCRIPTION v8eiwPTcGJSxzUJaCwRfDGG (test code = 3366) mRQZtn0gqYJEkrBTdQhRhDu NcZnRuYmpcdWMxXGRlZmYwe 5gwg184jMWze4ffJRZjQoX3 zJTyWWUawWRuU962d5xoj6f dfpZccAJ6FSAxXAN3RErtsx EongX7NIcqkOByKwF9NLuzk kPcBQyuwmZygfCkGbf3GYIj C514KDX5qJlne9tzEZI6UGX nONTfYoHcPj0dkWYkT736AZ QvPAHMHLOamTm3KKZpcgPkm kXfcDANv930U030s3ahMOGu crCpiKkQtgnxu0iuF871LUE hcGVydzEyMjQwXHBhcGVyaD N1OLQmOB3rapqoLzAkRX4yu mvdWtRlRN4ynnd7RpHwHE3x cmdiNzIwXGhlYWRlcnkwXGZ ie4SkxeajJS3nQ3Yiy4H9oY 9maXRcZGVmdGFiNzIwXGZvc j6fuFAuPMgaf0PaNPS7urJ1 gROegMUpMUYzVM32Xkjyl5D fNsmzKWZ9BBXmkoVkc4Iaa0 vvRsSjizMqV2kxD4KcFNUjN ZGzFPBhUgDynaJti9Yuh7Ea aCZmmCg5b8koJGUyRPPxpBe lz1mmKOT4SLJhF0M6cRMbm4 zyXUgrLDLhsPK0cedrVOzoM XLjbaX7nmxpBQjfXBOmhTY5 jeebELpbDUAcIdE1uumnLRq dJLEjLMP1UOfpj984RFQ3WQ xzYmtwYWdlXHBnbmNvbnRcc GduZGVjXHBsYWluXHBsYWlu XGYwXGZzMjRccWxccGxhaW5 jEbIrAyQiSBerRM7kLQRvX0 qmmMMaIRIjKWLrZ4wmSsUqo B5kmGcqESsyttTvWQHpBJXq Q6LcizMeAZEzUKEwZSpyWoQ aQXZav5v2xWQ3uDRuhJF2eV JweVorLpJjPJ4ixGAwMO9xW KxlZUpjxmFub8XzDT76fBVf bzNrouUiRrOzG3w1TWJgaX3 yYWwiIGlzIGEgcHJldmlvdX IudMBuptVps1UdYEH9XzSjE CMetJ1wfEzxqzOrPeN3KHfk d1zobqAoRXFgIUH2ZQMeTTT omVSrbnxhNu5eTKKqVLvzLE irrmf1lHTwgvUhkmUeK2krP mXaPpQwIO73ACFvZIkxTTZj LB5nrDJmXuWtUXtuRRXdMRO kiNOuJHfwCJNmwcnloQg3EV ShE0Pdj38sDKT1rfRzUVNlV XjrL9CcZ5nuxKVjcKzgvfJx bMGwl3OleP2qJXYeNCOqQFZ pKMNgaVIuopV2kCikb40qq3 NvHSHSTQZjEVYdbgLegIn0I EIwWLV2wN9injCiwuFvg6Dr zKw9bJFlPHgcGKZlFIQdy2w ua4occorcGGRaAJspwLGyM1 S9pQ1gRlwxAUShmQCrSVKcI PAvT9VagvWnVDBnNPJtECll MsBsDDNkp1v0nZZ4cCNpmVA 1bCUyxCifZnYeGE7ckTHmUO 8oQLuoATfdhnAad8EyBN95f WJlciBhbmQgImxlZnQgZmVt e1UbjWRttDOrPGMadgJ7lG8 4d2s3KRhiX2liWMHdcTXesW ekcaQrx0O0mT7sAS9rNAavh Hgblm1tRTLioWukhRIhYC6p BZF8obwzWpZ8ToMmC18fsU4 wqLReJ3BxZBGmBVEySI4pkE 8sDMKeYG5jAfxjY55jqL5xL UyfcMP4JYIhGYSXpABbl7Jx J5dxLA6gsQSrz4XkwSPxbVt ou1DdzGzstjUpHKGeHFFxmf KdrTEzRKdzvAWpU5L8sN5ht sXjSVEseCYuhursiXIksJ4p WQ20CUOvLNukVOZeoXUvmxC hjp7eYFTasKBsu0NqpFG7eH PcNSLbT2Lgw79xHKXyTZLvi RLjyPK5AMIxoU7uOaWyWMCg aEbrl0wsOiLcFOPwnAPnBam cZUKfy32eQIFpbswhXZFyI7 hoxCNfKTQOhmZ6ksahWFlJC CBQQSAoQVNDUCljbVxwYXJ9 MICROSCOPIC j4glxIKqOPTawOU1TqRmHNB DESCRIPTION (test code rh5fzy1NtrPEgtWWhCSjdeF = 3371) OcwzYxec35yJE2nZ76ME9vP JVyGlV1PDOgjxX2Stj6FHFe QBHxdWGyG477r3sxm1gluoX ctNV6vRtlFCFwmbvrUmC4KE jyTWXwlghrCBr8ZXpoHZEnk RM4ESFajDPyY1LkFNKcYR0g kvm2CKR9IGbwSIHnFwL0ZSN efYEyEXGywNzpHJvsv629YN K5HjKzZMDmzrSddQepgB3rW nPcWIFKNFXsCJIxxjMbpa2s LZ5hJLElyq7= [facility]30:13 Test Item Value Reference Range Interpretation Comments Case Report (test code Surgical Pathology = 104) Report Case: [id number] Authorizing Provider: Bassem Abraham MD Collected: 07/16/2021 10:13 AM Ordering Location: [facility] Received: 07/17/2021 10:20 AM PERIOPERATIVE SERVICES Pathologist: Citlaly Mckeon MD Specimens: A) - Plaque, Right Femoral Artery Plaque B) - Plaque, Left Femoral Artery Plaque DIAGNOSIS (test code = f9buvVEuNTUxb4kuPJGdbDU 3220) uZzEwMzNcZnRuYmpcdWMxIH tccnRmMVxlcGljOTYwMVxhb nFfJDKqlFBiE9WkdsboJAjr FS4jPB7loDyzzXBtgXJdMOM dCqAns2ouq843fISsq6hiLE QColgrxCt8wUphH27cu7H0K cjfQ44pjINpGFP3CPDmXXEs bQTgCPMcKTI5CMXevBQuY9l dPKUhQY0ghvutLWuiPMcfJF ZdcLG0BLEtaJRhD0PnJDOaY AxdULCgmqw9GmNsIj6qqMHl eTcyMFxwYXJkXHBsYWluXGZ lXaEzAN4yXwYCM3YHTQHMOt QFSuzrOPCZS9bDIHOBTvMIA tPERtGIDQ5OLIkqCYAvjVAl IT1XKXlEJBILZyULHShNNg4 IB3tWFq4GOORrYOwWQXSJJP QfgdhtRLZvZy4eMnFMG3LYC CBBUlRFUlksIExFRlQsIEVO UAVBMYHMVQFBQ12EUBWuhbq 0YWIgLUNBTENJRklDIEFUSE BXR1LCDBJHV0XXNrBMUSIOA RMrtWPbdXjchoZhIErca0Dv WMaaMQWvBC2vrWvtKAWrAU9 zFWEoR0qlvT1hcbw3CxAtGW RgYbC1DVNdheP1Ejx3KMHbT Yigm3suu0TtRKWbPXx8jStx GcOvNBZaa0ovxjDpPgIrDNU bVULtTAXjnBYiE915b3rwk8 edqiSgrEG7JFRcHFT2PFciq lLzumW4GQuqbRWdKeY4TAyu gfDcSFmfxmVknzOkYop3LRS iK601QCP2eVgfv0ffHIQ7MR DsAGQiAiRiEf4izXLyK009F QLwNBYBTEJwzBs2XMCzbwJf odWcmMZKz861X073w1qoKOE ieiDlvNbJlfhej1yaB892KB BhcGVydzEyMjQwXHBhcGVya NI8BSJqHV6hecqrRSmvXJsv UJJspjZ7RJKkcJKmH4GyYBB oKO0wpyvrOKC3BDxoUETmHI A6OnZbJZUkb8Byyqf2CwPkt k4prd33OFP4e2PlcEdyXIB4 TUP2IrOjKh8yyFYfZUWpXV6 sUjHuaLVuOEUwgg31nMcdCJ dnZJY4HJMeveAea4Eth3pyX gLlnaPbD4nfR6GfZTXoHLPk MSKeGoEepeGpv1Zlc8KboKZ ojPq6m9trTBGePRPzaZeqo5 vtHOL8GWCbxTIlH8ikoL8vS RQxMK8fjtlpm8hqSAjcWMnt BCCmmIY7tpG8ARCeyMWkC3M zwA8kDJVhUZhrBIOoxoq8Ve MyDx5rxGAgtDlgJWosOmexP WdlXHBnbmNvbnRccGduZGVj XHBsYWluXHBsYWluXGYwXGZ zMjRccWxcbGFuZzEwMzNcaG ljaFxmMVxkYmNoXGYxXGxvY 9rzCsVwDfIrKuq3TSBtaLDs NVKxFnx9LHAwlFVmSDHGfMu mhB6cYWFgjJsvxU9jeWR7IE QxdjEhiCKUgG9wXMZMtF5gC hN3AJZbZxy3AIW9FqRjsUAp fX0= CPT Code(s) (test code q8pqkWUuZHWjzAD1LbNtTGD = 3357) lx6gxm6BbiJSuqTQxAHvtpZ SuspFbzu99mFP0bC56OA9uF HAzYbB3CJIyxfU9Umg4HBRs EDAxcXWwG130i4ggb1aypcD nqSN6pOiyJXTcsetoIjB2SI klFGSuqdvqVYq7HXgoNQRdu AP1WNYbwXIvX3VsCSFdIA9i bty9HMD3BPneCUAeHrD4YKN xsEOsWXGsrTgfELkms128XD Z3SkItMAPyepCosBnmjF1xC uQyRKM7GVHlVBbwPYO1PDJz MVgyIFxwYXJ9 CLINICAL HISTORY (test v0jfdAFmELOebUV3SyHuGOT code = 3356) ts8niu1VsjARmkNTuYMxyjB HdxgLdyp31cJZ7jM46XY1pO TIrUgX2QCGzirV4Fbp2SDDp VEVsvMKcN169z5fyt5qwgaK lzCJ9zQihMAQohcnyMjG5CS odECSsturqDWm1LSboTZFan UH0RGHcmJGjZ5RqTRVbVQ1b eiy1PEN1LYthWYCcZrP4BSW jhAPtACPgaSimAXfrq123RO P7DbUjZGMcohNbwOngoX8dP mKjLBFJb6AytkBbqGYmjuZw cnkgZGlzZWFzZSBpbnZvbHZ ihwgoFbtqRKTsHXrvFSK8JE XvKCD1smLke5BxRK29EMNyz GVhcnRccGFyfQ== SPECIMEN SOURCE (test d2dtuZJgVKHecGS3SoPzLAW code = 3377) uw8gqk5SftPJbuPOnNNpkkK YsilJchg78mTJ6bH82ZM1zC RJlGeI6BDIvvsX7Sfw8BUSj HBTjbTKrD861b4gwg8qaqwS esEZ9oLkrRLMzwyrbBnI1XH clNQQbhofcDRs9ZYxsNSVzs FY4UQZesNVoP9WwVFImCS6t wjo1ORT3JIkaXVCuQiK9XYJ ahBVzGXSujDchJXdqj353ON O7HoMsBEXewkVpaUbdmZ8jD fRpPDOLXpWmAjHkj5NonCNr mmSzakwvASVeS2b3QYcvdtD bNd8mOGMxsG6fJKejZLD7MP S2GTWkNUJ5YONmir0= GROSS DESCRIPTION b1sahWUhAWGfrFVaOyEzVCD (test code = 3366) xFIGbd5vbSTNmtZIwFzDkCs NcZnRuYmpcdWMxXGRlZmYwe 3zki318iGFzz9blOGSyRoW8 dXIdMXXtpEUiG775k0xhs3g bslOoxXC4VGEwUAN7UWnmrq ZgrrI1CXyfbXCyUnU1ZNgew bOcOJluflVueuFrWby3FTHp L663YQJ0yVtrz1hoLZM8CWL gVCCqRjAlAf1yyBFqP616ZO GcEMLVLONdgKp4EAKrctKad fGvfPNSr671K976a6ygMOTc deVfhAmAtnvyv5faD776RDX hcGVydzEyMjQwXHBhcGVyaD M3XROnOI3xexdeUmEcPT6wy ygyBgVxPG1ftre6NzXtKS5a cmdiNzIwXGhlYWRlcnkwXGZ kv6FaryhcWX1sH6Fnh7U4yB 9maXRcZGVmdGFiNzIwXGZvc v6wgUNdELiez7KxKYE5qaT5 nABvpMYoAFHgPY91Bzsyn8B sZcmoATZ4GFKzgrQza7Xmz9 bzBbPxowMyV4mvR9AlIYRbU ZNkJEJkIuAqceBua8Cnu1Iv vCQsrTp5u0flQLSxPOJvvTs kd8bmJTW0RGLyE5I1gTXvc4 liMNopPRVbpEZ0tillIElpH OYtveR0hdqxZXysNXJcyAJ0 gjprTJwlCZCpQqW9bsbwHLp yKDKgQQS5JMxmg470ZZC0JD xzYmtwYWdlXHBnbmNvbnRcc GduZGVjXHBsYWluXHBsYWlu XGYwXGZzMjRccWxccGxhaW5 bTbJaZbUtZMomVT5kRWCpW0 kcsEXdLJVbGXOpJ2avNwHsw H2neDigWWwtyiPzGLFjKACp P2DgmdVjZQLeKRGgBYdwCrD sDOQcg8t2mDM2kKGfaCG8vQ QxmJtrIcQnIU6olQGxZC5pW HoyUAktooGfw4LgVK58jLPo qgQlzqEcKyLvB5w2ZSMmmU5 yYWwiIGlzIGEgcHJldmlvdX UlmEPasbPvy6DoNMX0SmXkG SDajK5lpTvoiaIqTnC2CQwc n5zumhExOGGdMXU2VDZhCYA aiPKrkjthUw1eTIIgNLiaEO vrgnf6fHRhjwQworNlO8ilJ dKlTeOkAH59MSXkBJmmHOIq ST3guVCfFkCkPWnuNVVmFXW imWVnZAdrJSYsdvinrPn6NY EfI1Yda83dXIH6heBbEQBvN YesF9QnD5whjHEalSgmyuKj sQFtp6UyhN7tOXQuJCZeHAH kCKJvbIUhqiQ9mOzwp93er6 RzUFFNOOReTFTqblVzeRs6X PRvIZX4uF0xbtAhbsOdg9Zh cIv8aAZkWXoaVTLeVYBkz6l al8ogfsgrLBZdTCkriOPzM7 L8xX9xCngeTMYywNBjEJYkP ISeX2TnvsCwCADbVMPxCOgs PtKxUERrv7o4vZL5pSMytXF 0xSDvxCglXgJlOX7vyIWdRV 3mWOlrUFvbcvZqy1ZxAQ98a WJlciBhbmQgImxlZnQgZmVt y5RgtINqzMYiZMBgppV0pA4 2b3c1ULgyV4dgVFXthXMzjE ltazBzq8P9eC8nDD2cSFydk Fymfm6fOKRcjSshbCZeZF5c JMI9fmanQoF2SxPjS81vcY3 xeUOzD8WhDXRyYNDhIF1hoQ 1jJHPjRD4sAmrcD08ewW7kY PvdzJH6UYBjDHGWkCWwv3Ic F7sxQE5lzXQvi5EgwPFebYg an3YohXieteGaWLNyAJTuip ZwdOVwNNznqVMdA9I6fQ0gt gXjKBCfgOIccciajGQljA7s MA47VBEsQVmsFPGdeNHtxbB jau4lJUAoiRVjc9VmwWD3oO TrAQQtP3Ijx68pVBIeXVBud LRyeDW8ELAldG3cCfFpCXRf bRxbu2lyJhCrIQNwrPNiPue lEUAct37cEBQhnsekUODkJ5 eauURtGADAsuV6hclvKSqYL CBQQSAoQVNDUCljbVxwYXJ9 MICROSCOPIC r5ppyGFvDZSfmFC2KeGbMKG DESCRIPTION (test code qh8est9VfdCTbnBOlOZkyeP = 3371) FhevRcai94nLR7jC22MF5pM ZDnIbM2HCOvomM6Bkg6DWHm ESZzvQMiS246e2won1yhqeZ isLM4jTzqYJXwgippSrX5QD ugGUQrtpfyOMb9ZYipGLMps WF2PDXjzVFeC3OvYBSrBM5u rfl2OCV5IEtmMPGqOdN4VZI dvMImLKYryBvtLNifa913CK Z9AkDiEPDxnyKwxEitiL6kD nWlUOAODONzRYNlipTdwh0b AQ8pZNBwvs1= [facility] [id number] 19:30:13Surgical Pathology Report Case: [id number] Authorizing Provider: Bassem Abraham MD Collected: 07/16/2021 10:13 AM Ordering Location: [facility] Received: 07/17/2021 10:20 AM PERIOPERATIVE SERVICES Pathologist: Citlaly Mckeon MD Specimens: A) - Plaque, Right Femoral Artery Plaque B) - Plaque, LeftFemoral Artery Plaque A. FEMORAL ARTERY, RIGHT, ENDARTERECTOMY -CALCIFIC ATHEROSCLEROTIC PLAQUEB. 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 Femoral artery, rightB. Femoral artery, leftA. Received fresh labeled with the patient's name, medical record number and "right femoral" is a previously incised tubular portion of yellow-red plaque measuring 7.3 cm in length and ranging 0.5-0.7 cm in diameter. The specimen is serially sectioned to reveal calcifications measuring up to 0.4 cm in thickness. Cut Off Machine Operator sections are submitted in A1, following decalcification.B. R eceived fresh labeled with the patient's name, medical record number and "left femoral" is a previously incised tubular portion of yellow-red plaque measuring 6.3 cm in length and ranging 0.4-0.7 cm indiameter. The specimen is serially sectioned to reveal calcifications measuring up to 0.4 cm in thickness. Cut Off Machine Operator sections are submitted in B1, following decalcification.COLTEN Gifford PA ([facility])attendance clerk-B. Performed.POCT-GLUCOSE [id number] 11:40:39 Test Item Value Reference Range Interpretation Comments POC-GLUCOSE METER 319 mg/dL 70-110 H : Notified RN/: (ASHLEY) (test code = TESTED AT [facility] 6720 1538) [facility], [id number]: Relocation Commissioner/Techni cuco ID = [id number] for MA RTQUINTON HOYOS POCT-GLUCOSE [id number] 09:37:12 Test Item Value Reference Range Interpretation Comments POC-GLUCOSE METER 229 mg/dL 70-110 H : Notified RN/: (ASHLEY) (test code = TESTED AT [facility] 6720 1538) [facility], [address]: Relocation Commissioner/Techni cuco ID = [id number] for MA RTIN, QUINTON [id number] 07:31:39 Test Item Value Reference Range Interpretation Comments PHOSPHORUS (BEAKER) (test code = 2.4 mg/dL 2.3-4.7 604) Relocation Commissioner TIA ALLISON [id number] 07:31:38 Test Item Value Reference Range Interpretation Comments MAGNESIUM (BEAKER) (test code = 2.3 mg/dL 1.6-2.6 627) Relocation Commissioner ID Nayely ALLISON LBASIC METABOLIC [id number] 07:31:38 Test Item Value Reference Range Interpretation Comments SODIUM (BEAKER) 138 meq/L 136-145 (test code = 381) POTASSIUM (BEAKER) 3.5 meq/L 3.5-5.1 (test code = 379) CHLORIDE (BEAKER) 108 meq/L 98-107 H (test code = 382) CO2 (BEAKER) (test 24 meq/L 22-29 code = 355) BLOOD UREA NITROGEN 31 mg/dL 7-21 H (BEAKER) (test code = 354) CREATININE (BEAKER) 1.35 mg/dL 0.57-1.25 H (test code = 358) GLUCOSE RANDOM 255 mg/dL 70-105 H (BEAKER) (test code = 652) CALCIUM (BEAKER) 8.6 mg/dL 8.4-10.2 (test code = 697) EGFR (BEAKER) (test 54 mL/min/1.73 ESTIMA GILMA GFR IS code = 1092) sq m NOT ACCURATE CREATININE CLEARANCE IN PREDICTING GLOMERULAR FILTRATION RATE . ESTIMATED GFR I S NOT APPLICABLE FOR DIALYSIS PATIEN TS. Relocation Commissioner ID Nayely ALLISON LCBC W/PLT COUNT & AUTO [id number] 05:49:35 Test Item Value Reference Range Interpretation Comments WHITE BLOOD CELL COUNT (BEAKER) 6.7 K/ L 3.5-10.5 (test code = 775) RED BLOOD CELL COUNT (BEAKER) 3.39 M/ L 4.63-6.08 L (test code = 761) HEMOGLOBIN (BEAKER) (test code = 10.3 GM/DL 13.7-17.5 L 410) HEMATOCRIT (BEAKER) (test code = 32.3 % 40.1-51.0 L 411) MEAN CORPUSCULAR VOLUME (BEAKER) 95.3 fL 79.0-92.2 H (test code = 753) MEAN CORPUSCULAR HEMOGLOBIN 30.4 pg 25.7-32.2 (BEAKER) (test code = 751) MEAN CORPUSCULAR HEMOGLOBIN CONC 31.9 GM/DL 32.3-36.5 L (BEAKER) (test code = 752) RED CELL DISTRIBUTION WIDTH 14.2 % 11.6-14.4 (BEAKER) (test code = 412) PLATELET COUNT (BEAKER) (test 179 K/CU MM 150-450 code = 756) MEAN PLATELET VOLUME (BEAKER) 11.1 fL 9.4-12.4 (test code = 754) NUCLEATED RED BLOOD CELLS 0 /100 WBC 0-0 (BEAKER) (test code = 413) NEUTROPHILS RELATIVE PERCENT 65 % (BEAKER) (test code = 429) LYMPHOCYTES RELATIVE PERCENT 21 % (BEAKER) (test code = 430) MONOCYTES RELATIVE PERCENT 7 % (BEAKER) (test code = 431) EOSINOPHILS RELATIVE PERCENT 5 % (BEAKER) (test code = 432) BASOPHILS RELATIVE PERCENT 1 % (BEAKER) (test code = 437) NEUTROPHILS ABSOLUTE COUNT 4.36 K/ L 1.78-5.38 (BEAKER) (test code = 670) LYMPHOCYTES ABSOLUTE COUNT 1.41 K/ L 1.32-3.57 (BEAKER) (test code = 414) MONOCYTES ABSOLUTE COUNT (BEAKER) 0.49 K/ L 0.30-0.82 (test code = 415) EOSINOPHILS ABSOLUTE COUNT 0.32 K/ L 0.04-0.54 (BEAKER) (test code = 416) BASOPHILS ABSOLUTE COUNT (BEAKER) 0.06 K/ L 0.01-0.08 (test code = 417) IMMATURE GRANULOCYTES-RELATIVE 0 % 0-1 PERCENT (BEAKER) (test code = 2801) POCT-GLUCOSE [id number] 21:37:04 Test Item Value Reference Range Interpretation Comments POC-GLUCOSE METER 309 mg/dL 70-110 H : TESTED A T [facility] 6720 (BEAKER) (test code = [place], 1538) [address]: Relocation Commissioner/Techni cuco ID = [id number] for DAGMAR HAILE POCT-GLUCOSE [id number] 17:40:28 Test Item Value Reference Range Interpretation Comments POC-GLUCOSE METER 286 mg/dL 70-110 H : TESTED A T [facility] 6720 (BEAKER) (test code [facility], = 1538) [address]: Relocation Commissioner/Techni cuco ID = [id number] for ANDREA BERRY POCT-GLUCOSE [id number] 11:48:20 Test Item Value Reference Range Interpretation Comments POC-GLUCOSE METER 297 mg/dL 70-110 H : Notified RN/MD: (BEAKER) (test code = TESTED AT [facility] 6720 1538) [facility], [address]: Relocation Commissioner/Techni cuco ID = [id number] for QUINTON BECKER POCT-GLUCOSE [id number] 07:35:36 Test Item Value Reference Range Interpretation Comments POC-GLUCOSE METER 224 mg/dL 70-110 H : Notified RN/MD: (BEAKER) (test code = TESTED AT [facility] 6720 1538) [facility], [address]: Relocation Commissioner/Techni cuco ID = [id number] for QUINTON BECKER BASIC METABOLIC [id number] 06:31:17 Test Item Value Reference Range Interpretation Comments SODIUM (BEAKER) 136 meq/L 136-145 (test code = 381) POTASSIUM (BEAKER) 4.1 meq/L 3.5-5.1 (test code = 379) CHLORIDE (BEAKER) 107 meq/L 98-107 (test code = 382) CO2 (BEAKER) (test 22 meq/L 22-29 code = 355) BLOOD UREA NITROGEN 51 mg/dL 7-21 H (BEAKER) (test code = 354) CREATININE (BEAKER) 2.14 mg/dL 0.57-1.25 H (test code = 358) GLUCOSE RANDOM 248 mg/dL 70-105 H (BEAKER) (test code = 652) CALCIUM (BEAKER) 8.6 mg/dL 8.4-10.2 (test code = 697) EGFR (BEAKER) (test 32 mL/min/1.73 ESTIMA GILMA GFR IS code = 1092) sq m NOT ACCURATE CREATININE CLEARANCE IN PREDICTING GLOMERULAR FILTRATION RATE . ESTIMATED GFR I S NOT APPLICABLE FOR DIALYSIS PATIEN TS. Relocation Commissioner ID - KEEGAN LOperator ID - [id number] 06:18:47 Test Item Value Reference Range Interpretation Comments PHOSPHORUS (BEAKER) (test code = 2.7 mg/dL 2.3-4.7 604) Relocation Commissioner ID - KEEGAN [id number] 06:18:46 Test Item Value Reference Range Interpretation Comments MAGNESIUM (BEAKER) (test code = 2.7 mg/dL 1.6-2.6 H 627) Relocation Commissioner ID Nayely ALLISON LCBC W/PLT COUNT & AUTO [id number] 05:31:01 Test Item Value Reference Range Interpretation Comments WHITE BLOOD CELL COUNT (BEAKER) 7.4 K/ L 3.5-10.5 (test code = 775) RED BLOOD CELL COUNT (BEAKER) 3.26 M/ L 4.63-6.08 L (test code = 761) HEMOGLOBIN (BEAKER) (test code = 10.0 GM/DL 13.7-17.5 L 410) HEMATOCRIT (BEAKER) (test code = 31.3 % 40.1-51.0 L 411) MEAN CORPUSCULAR VOLUME (BEAKER) 96.0 fL 79.0-92.2 H (test code = 753) MEAN CORPUSCULAR HEMOGLOBIN 30.7 pg 25.7-32.2 (BEAKER) (test code = 751) MEAN CORPUSCULAR HEMOGLOBIN CONC 31.9 GM/DL 32.3-36.5 L (BEAKER) (test code = 752) RED CELL DISTRIBUTION WIDTH 14.3 % 11.6-14.4 (BEAKER) (test code = 412) PLATELET COUNT (BEAKER) (test 172 K/CU MM 150-450 code = 756) MEAN PLATELET VOLUME (BEAKER) 11.2 fL 9.4-12.4 (test code = 754) NUCLEATED RED BLOOD CELLS 0 /100 WBC 0-0 (BEAKER) (test code = 413) NEUTROPHILS RELATIVE PERCENT 68 % (BEAKER) (test code = 429) LYMPHOCYTES RELATIVE PERCENT 20 % (BEAKER) (test code = 430) MONOCYTES RELATIVE PERCENT 7 % (BEAKER) (test code = 431) EOSINOPHILS RELATIVE PERCENT 4 % (BEAKER) (test code = 432) BASOPHILS RELATIVE PERCENT 1 % (BEAKER) (test code = 437) NEUTROPHILS ABSOLUTE COUNT 5.05 K/ L 1.78-5.38 (BEAKER) (test code = 670) LYMPHOCYTES ABSOLUTE COUNT 1.47 K/ L 1.32-3.57 (BEAKER) (test code = 414) MONOCYTES ABSOLUTE COUNT (BEAKER) 0.55 K/ L 0.30-0.82 (test code = 415) EOSINOPHILS ABSOLUTE COUNT 0.30 K/ L 0.04-0.54 (BEAKER) (test code = 416) BASOPHILS ABSOLUTE COUNT (BEAKER) 0.04 K/ L 0.01-0.08 (test code = 417) IMMATURE GRANULOCYTES-RELATIVE 0 % 0-1 PERCENT (BEAKER) (test code = 2801) POCT-GLUCOSE [id number] 21:27:11 Test Item Value Reference Range Interpretation Comments POC-GLUCOSE METER 265 mg/dL 70-110 H : TESTED A T [facility] 6720 (BEAKER) (test code = [place], 1538) [address]: Relocation Commissioner/Techni cuco ID = [id number] for DAGMAR HAILE Sodium, random [id number] 19:33:20 Test Item Value Reference Range Interpretation Comments Sodium Urine (test 30 meq/L code = 2955-3) JUANPABLO (test code = Reference Range: No JUANPABLO) NormalsOperator ID - [facility] [id number] 19:33:20 Test Item Value Reference Range Interpretation Comments Sodium Urine (test 30 meq/L code = 2955-3) JUANPABLO (test code = Reference Range: No JUANPABLO) NormalsOperator ID - [facility] [id number] 19:33:20 Test Item Value Reference Range Interpretation Comments Sodium Urine (test 30 meq/L code = 2955-3) JUANPABLO (test code = Reference Range: No JUANPABLO) NormalsOperator ID - DB [facility] [id number] 19:33:20 Test Item Value Reference Range Interpretation Comments Sodium Urine (test 30 meq/L code = 2955-3) JUANPABLO (test code = Reference Range: No JUANPABLO) NormalsOperator ID - DB [facility] [id number] 19:33:20 Test Item Value Reference Range Interpretation Comments Sodium Urine (test 30 meq/L code = 2955-3) JUANPABLO (test code = Reference Range: No JUANPABLO) NormalsOperator ID - DB [facility] [id number] 19:33:20 Test Item Value Reference Range Interpretation Comments Sodium Urine (test 30 meq/L code = 2955-3) JUANPABLO (test code = Reference Range: No JUANPABLO) NormalsOperator ID - DB [facility] [id number] 19:33:20 Test Item Value Reference Range Interpretation Comments Sodium Urine (test 30 meq/L code = 2955-3) JUANPABLO (test code = Reference Range: No JUANPABLO) NormalsOperator ID - DB [facility], [facility]ANDOM [id number] 19:33:20 Test Item Value Reference Range Interpretation Comments SODIUM URINE (BEAKER) (test code = 30 meq/L 243) Reference Range: No NormalsOperator ID - DBCreatinine, random [id number] 19:33:19 Test Item Value Reference Range Interpretation Comments Creatinine, Ur 138.8 mg/dL (test code = 2161-8) JUANPABLO (test code = Reference Range: No JUANPABLO) NormalsOperator ID - DB [facility] [id number] 19:33:19 Test Item Value Reference Range Interpretation Comments Creatinine, Ur 138.8 mg/dL (test code = 2161-8) JAUNPABLO (test code = Reference Range: No JUANPABLO) NormalsOperator ID - DB [facility], [facility] [id number] 19:33:19 Test Item Value Reference Range Interpretation Comments Creatinine, Ur 138.8 mg/dL (test code = 2161-8) JUANPABLO (test code = Reference Range: No JUANPABLO) NormalsOperator ID - DB [facility], random [id number] 19:33:19 Test Item Value Reference Range Interpretation Comments Creatinine, Ur 138.8 mg/dL (test code = 2161-8) JUANPABLO (test code = Reference Range: No JUANPABLO) NormalsOperator ID - DB [facility], random [id number] 19:33:19 Test Item Value Reference Range Interpretation Comments Creatinine, Ur 138.8 mg/dL (test code = 2161-8) JUANPABLO (test code = Reference Range: No JUANPABLO) NormalsOperator ID - DB [facility], random [id number] 19:33:19 Test Item Value Reference Range Interpretation Comments Creatinine, Ur 138.8 mg/dL (test code = 2161-8) JUANPABLO (test code = Reference Range: No JUANPABLO) NormalsOperator ID - DB [facility], random [id number] 19:33:19 Test Item Value Reference Range Interpretation Comments Creatinine, Ur 138.8 mg/dL (test code = 2161-8) JUANPABLO (test code = Reference Range: No JUANPABLO) NormalsOperator ID - DB [facility]CRE[facility]ITALINE, RANDOM [id number] 19:33:19 Test Item Value Reference Range Interpretation Comments CREATININE URINE (BEAKER) (test 138.8 mg/dL code = 375) Reference Range: No NormalsOperator ID - DBUrinalysis w/Oxzcochisev2683-82-41 19:08:44 Test Item Value Reference Range Interpretation Comments Color, UA (test code Dark Yellow = 5778-6) Clarity, UA (test Clear code = 5767-9) Specific Ponce, UA 1.016 1.001-1.035 (test code = 5811-5) pH, UA (test code = 5.5 5.0-8.0 5803-2) Protein, UA (test 100 mg/dL Negative A code = 55749-4) Glucose, UA (test 1000 mg/dL Negative A code = 365) Ketones, UA (test 40 mg/dL Negative A code = 2514-8) Bilirubin, UA (test Negative Negative code = 55734-4) Blood, UA (test code Small Negative A = 04773-5) Nitrite, UA (test Negative Negative code = 5802-4) Leukocytes, UA (test Small Negative A code = 5799-2) Urobilinogen, UA 0.2 mg/dL 0.2-1.0 (test code = 78454-4) RBC, UA (test code = 6 See_Comment [Autom ated 59313-3) message] The system which generated this result transmit gilma reference range : /HPF. The reference range was not used to interpret this result as normal/abnormal . WBC, UA (test code = 6 See_Comment [Autom ated 5821-4) message] The system which generated this result transmit gilma reference range : /HPF. The reference range was not used to interpret this result as normal/abnormal . Bacteria, UA (test None Seen code = 24926-3) Mucus (test code = Rare 8247-9) Squam Epithel, UA <1 See_Comment [Automate d (test code = 11314-8) messag e] The system which generated this result transmit gilma reference range : /HPF. The reference range was not used to interpret this result as normal/abnormal . Hyaline Casts, UA 35 See_Comment [Automate d (test code = 15664-9) messag e] The system which generated this result transmit gilma reference range : /LPF. The reference range was not used to interpret this result as normal/abnormal . Crystals, Urine (test None Seen code = 30787-0) Specimen Source (test code = 2795) JUANPABLO (test code = JUANPABLO) Relocation Commissioner ID - [auto]Relocation Commissioner ID - tech Lab Interpretation Abnormal (test code = 66997-7) [facility]/Bjfatvxxlee5997-82-88 19:08:44 Test Item Value Reference Range Interpretation Comments Color, UA (test code Dark Yellow = 5778-6) Clarity, UA (test Clear code = 5767-9) Specific Ponce, UA 1.016 1.001-1.035 (test code = 5811-5) pH, UA (test code = 5.5 5.0-8.0 5803-2) Protein, UA (test 100 mg/dL Negative A code = 05619-6) Glucose, UA (test 1000 mg/dL Negative A code = 365) Ketones, UA (test 40 mg/dL Negative A code = 2514-8) Bilirubin, UA (test Negative Negative code = 57100-2) Blood, UA (test code Small Negative A = 08009-3) Nitrite, UA (test Negative Negative code = 5802-4) Leukocytes, UA (test Small Negative A code = 5799-2) Urobilinogen, UA 0.2 mg/dL 0.2-1.0 (test code = 65002-9) RBC, UA (test code = 6 See_Comment [Autom ated 34927-4) message] The system which generated this result transmit gilma reference range : /HPF. The reference range was not used to interpret this result as normal/abnormal . WBC, UA (test code = 6 See_Comment [Autom ated 5821-4) message] The system which generated this result transmit gilma reference range : /HPF. The reference range was not used to interpret this result as normal/abnormal . Bacteria, UA (test None Seen code = 13797-1) Mucus (test code = Rare 8247-9) Squam Epithel, UA <1 See_Comment [Automate d (test code = 78496-5) messag e] The system which generated this result transmit gilma reference range : /HPF. The reference range was not used to interpret this result as normal/abnormal . Hyaline Casts, UA 35 See_Comment [Automate d (test code = 25498-9) messag e] The system which generated this result transmit gilma reference range : /LPF. The reference range was not used to interpret this result as normal/abnormal . Crystals, Urine (test None Seen code = 44744-7) Specimen Source (test code = 2795) JUANPABLO (test code = JUANPABLO) Relocation Commissioner ID - [auto]Relocation Commissioner ID - tech Lab Interpretation Abnormal (test code = 67273-9) [facility]/Ywqwhvxtixp3066-90-88 19:08:44 Test Item Value Reference Range Interpretation Comments Color, UA (test code Dark Yellow = 5778-6) Clarity, UA (test Clear code = 5767-9) Specific Ponce, UA 1.016 1.001-1.035 (test code = 5811-5) pH, UA (test code = 5.5 5.0-8.0 5803-2) Protein, UA (test 100 mg/dL Negative A code = 92142-6) Glucose, UA (test 1000 mg/dL Negative A code = 365) Ketones, UA (test 40 mg/dL Negative A code = 2514-8) Bilirubin, UA (test Negative Negative code = 06383-7) Blood, UA (test code Small Negative A = 79679-0) Nitrite, UA (test Negative Negative code = 5802-4) Leukocytes, UA (test Small Negative A code = 5799-2) Urobilinogen, UA 0.2 mg/dL 0.2-1.0 (test code = 34607-6) RBC, UA (test code = 6 See_Comment [Autom ated 58901-0) message] The system which generated this result transmit gilma reference range : /HPF. The reference range was not used to interpret this result as normal/abnormal . WBC, UA (test code = 6 See_Comment [Autom ated 5821-4) message] The system which generated this result transmit gilma reference range : /HPF. The reference range was not used to interpret this result as normal/abnormal . Bacteria, UA (test None Seen code = 18738-1) Mucus (test code = Rare 8247-9) Squam Epithel, UA <1 See_Comment [Automate d (test code = 75441-7) messag e] The system which generated this result transmit gilma reference range : /HPF. The reference range was not used to interpret this result as normal/abnormal . Hyaline Casts, UA 35 See_Comment [Automate d (test code = 72986-4) messag e] The system which generated this result transmit gilma reference range : /LPF. The reference range was not used to interpret this result as normal/abnormal . Crystals, Urine (test None Seen code = 05011-2) Specimen Source (test code = 2795) JUANPABLO (test code = JUANPABLO) Relocation Commissioner ID - [auto]Relocation Commissioner ID - tech Lab Interpretation Abnormal (test code = 63664-9) [facility]/Agjbunkcjfu6081-21-28 19:08:44 Test Item Value Reference Range Interpretation Comments Color, UA (test code Dark Yellow = 5778-6) Clarity, UA (test Clear code = 5767-9) Specific Ponce, UA 1.016 1.001-1.035 (test code = 5811-5) pH, UA (test code = 5.5 5.0-8.0 5803-2) Protein, UA (test 100 mg/dL Negative A code = 92696-5) Glucose, UA (test 1000 mg/dL Negative A code = 365) Ketones, UA (test 40 mg/dL Negative A code = 2514-8) Bilirubin, UA (test Negative Negative code = 69624-4) Blood, UA (test code Small Negative A = 72898-9) Nitrite, UA (test Negative Negative code = 5802-4) Leukocytes, UA (test Small Negative A code = 5799-2) Urobilinogen, UA 0.2 mg/dL 0.2-1.0 (test code = 77252-6) RBC, UA (test code = 6 See_Comment [Autom ated 74891-1) message] The system which generated this result transmit gilma reference range : /HPF. The reference range was not used to interpret this result as normal/abnormal . WBC, UA (test code = 6 See_Comment [Autom ated 5821-4) message] The system which generated this result transmit gilma reference range : /HPF. The reference range was not used to interpret this result as normal/abnormal . Bacteria, UA (test None Seen code = 35611-9) Mucus (test code = Rare 8247-9) Squam Epithel, UA <1 See_Comment [Automate d (test code = 31147-3) messag e] The system which generated this result transmit gilma reference range : /HPF. The reference range was not used to interpret this result as normal/abnormal . Hyaline Casts, UA 35 See_Comment [Automate d (test code = 30874-1) messag e] The system which generated this result transmit gilma reference range : /LPF. The reference range was not used to interpret this result as normal/abnormal . Crystals, Urine (test None Seen code = 20167-8) Specimen Source (test code = 2795) JUANPABLO (test code = JUANPABLO) Relocation Commissioner ID - [auto]Relocation Commissioner ID - tech Lab Interpretation Abnormal (test code = 65407-7) [facility]/Ynnybiqflzx2928-06-12 19:08:44 Test Item Value Reference Range Interpretation Comments Color, UA (test code Dark Yellow = 5778-6) Clarity, UA (test Clear code = 5767-9) Specific Ponce, UA 1.016 1.001-1.035 (test code = 5811-5) pH, UA (test code = 5.5 5.0-8.0 5803-2) Protein, UA (test 100 mg/dL Negative A code = 51998-6) Glucose, UA (test 1000 mg/dL Negative A code = 365) Ketones, UA (test 40 mg/dL Negative A code = 2514-8) Bilirubin, UA (test Negative Negative code = 47125-9) Blood, UA (test code Small Negative A = 50946-3) Nitrite, UA (test Negative Negative code = 5802-4) Leukocytes, UA (test Small Negative A code = 5799-2) Urobilinogen, UA 0.2 mg/dL 0.2-1.0 (test code = 80753-4) RBC, UA (test code = 6 See_Comment [Autom ated 63868-9) message] The system which generated this result transmit gilma reference range : /HPF. The reference range was not used to interpret this result as normal/abnormal . WBC, UA (test code = 6 See_Comment [Autom ated 5821-4) message] The system which generated this result transmit gilma reference range : /HPF. The reference range was not used to interpret this result as normal/abnormal . Bacteria, UA (test None Seen code = 27169-7) Mucus (test code = Rare 8247-9) Squam Epithel, UA <1 See_Comment [Automate d (test code = 40080-5) messag e] The system which generated this result transmit gilma reference range : /HPF. The reference range was not used to interpret this result as normal/abnormal . Hyaline Casts, UA 35 See_Comment [Automate d (test code = 70329-6) messag e] The system which generated this result transmit gilma reference range : /LPF. The reference range was not used to interpret this result as normal/abnormal . Crystals, Urine (test None Seen code = 01071-8) Specimen Source (test code = 2795) JUANPABLO (test code = JUANPABLO) Relocation Commissioner ID - [auto]Relocation Commissioner ID - tech Lab Interpretation Abnormal (test code = 95361-5) [facility]/Pederzotomy0080-93-50 19:08:44 Test Item Value Reference Range Interpretation Comments Color, UA (test code Dark Yellow = 5778-6) Clarity, UA (test Clear code = 5767-9) Specific Ponce, UA 1.016 1.001-1.035 (test code = 5811-5) pH, UA (test code = 5.5 5.0-8.0 5803-2) Protein, UA (test 100 mg/dL Negative A code = 03880-1) Glucose, UA (test 1000 mg/dL Negative A code = 365) Ketones, UA (test 40 mg/dL Negative A code = 2514-8) Bilirubin, UA (test Negative Negative code = 98976-1) Blood, UA (test code Small Negative A = 36692-4) Nitrite, UA (test Negative Negative code = 5802-4) Leukocytes, UA (test Small Negative A code = 5799-2) Urobilinogen, UA 0.2 mg/dL 0.2-1.0 (test code = 33811-7) RBC, UA (test code = 6 See_Comment [Autom ated 27802-4) message] The system which generated this result transmit gilma reference range : /HPF. The reference range was not used to interpret this result as normal/abnormal . WBC, UA (test code = 6 See_Comment [Autom ated 5821-4) message] The system which generated this result transmit gilma reference range : /HPF. The reference range was not used to interpret this result as normal/abnormal . Bacteria, UA (test None Seen code = 81935-9) Mucus (test code = Rare 8247-9) Squam Epithel, UA <1 See_Comment [Automate d (test code = 91856-3) messag e] The system which generated this result transmit gilma reference range : /HPF. The reference range was not used to interpret this result as normal/abnormal . Hyaline Casts, UA 35 See_Comment [Automate d (test code = 91589-4) messag e] The system which generated this result transmit gilma reference range : /LPF. The reference range was not used to interpret this result as normal/abnormal . Crystals, Urine (test None Seen code = 26091-8) Specimen Source (test code = 2795) JUANPABLO (test code = JUANPABLO) Relocation Commissioner ID - [auto]Relocation Commissioner ID - tech Lab Interpretation Abnormal (test code = 83403-3) [facility]/Jztkchobele9830-02-56 19:08:44 Test Item Value Reference Range Interpretation Comments Color, UA (test code Dark Yellow = 5778-6) Clarity, UA (test Clear code = 5767-9) Specific Ponce, UA 1.016 1.001-1.035 (test code = 5811-5) pH, UA (test code = 5.5 5.0-8.0 5803-2) Protein, UA (test 100 mg/dL Negative A code = 82969-3) Glucose, UA (test 1000 mg/dL Negative A code = 365) Ketones, UA (test 40 mg/dL Negative A code = 2514-8) Bilirubin, UA (test Negative Negative code = 23577-6) Blood, UA (test code Small Negative A = 97643-9) Nitrite, UA (test Negative Negative code = 5802-4) Leukocytes, UA (test Small Negative A code = 5799-2) Urobilinogen, UA 0.2 mg/dL 0.2-1.0 (test code = 52215-5) RBC, UA (test code = 6 See_Comment [Autom ated 04611-8) message] The system which generated this result transmit gilma reference range : /HPF. The reference range was not used to interpret this result as normal/abnormal . WBC, UA (test code = 6 See_Comment [Autom ated 5821-4) message] The system which generated this result transmit gilma reference range : /HPF. The reference range was not used to interpret this result as normal/abnormal . Bacteria, UA (test None Seen code = 11943-0) Mucus (test code = Rare 8247-9) Squam Epithel, UA <1 See_Comment [Automate d (test code = 85299-3) messag e] The system which generated this result transmit gilma reference range : /HPF. The reference range was not used to interpret this result as normal/abnormal . Hyaline Casts, UA 35 See_Comment [Automate d (test code = 36746-5) messag e] The system which generated this result transmit gilma reference range : /LPF. The reference range was not used to interpret this result as normal/abnormal . Crystals, Urine (test None Seen code = 56407-5) Specimen Source (test code = 2795) JUANPABLO (test code = JUANPABLO) Relocation Commissioner ID - [auto]Relocation Commissioner ID - tech Lab Interpretation Abnormal (test code = 40331-0) [facility]/ OMJSNUZVCCH3708-43-03 19:08:44 Test Item Value Reference Range Interpretation Comments COLOR (BEAKER) (test code = 470) Dark Yellow CLARITY (BEAKER) (test code = Clear 469) SPECIFIC GRAVITY UA (BEAKER) 1.016 1.001-1.035 (test code = 468) PH UA (BEAKER) (test code = 467) 5.5 5.0-8.0 PROTEIN UA (BEAKER) (test code = 100 mg/dL Negative A 464) GLUCOSE UA (BEAKER) (test code = 1000 mg/dL Negative A 365) KETONES UA (BEAKER) (test code = 40 mg/dL Negative A 371) BILIRUBIN UA (BEAKER) (test code Negative Negative = 462) BLOOD UA (BEAKER) (test code = Small Negative A 461) NITRITE UA (BEAKER) (test code = Negative Negative 465) LEUKOCYTE ESTERASE UA (BEAKER) Small Negative A (test code = 466) UROBILINOGEN UA (BEAKER) (test 0.2 mg/dL 0.2-1.0 code = 463) RBC UA (BEAKER) (test code = 519) 6 /HPF WBC UA (BEAKER) (test code = 520) 6 /HPF BACTERIA (BEAKER) (test code = None Seen 517) MUCUS (BEAKER) (test code = 1574) Rare SQUAMOUS EPITHELIAL (BEAKER) < /HPF (test code = 516) HYALINE CASTS (BEAKER) (test code 35 /LPF = 514) CRYSTALS, URINE (BEAKER) (test None Seen code = 1521) SOURCE(BEAKER) (test code = 2795) Relocation Commissioner ID - [auto]Relocation Commissioner ID - techPOCT-GLUCOSE [id number] 17:10:00 Test Item Value Reference Range Interpretation Comments POC-GLUCOSE METER 345 mg/dL 70-110 H : TESTED A T [facility] 6720 (BEAKER) (test code = [place], 1538) [address]: Relocation Commissioner/Techni cuco ID = [id number] for [facility] RASHEED BASIC METABOLIC [id number] 16:28:03 Test Item Value Reference Range Interpretation Comments SODIUM (BEAKER) 132 meq/L 136-145 L (test code = 381) POTASSIUM (BEAKER) 4.9 meq/L 3.5-5.1 Specimen slightly (test code = 379) hemolyzed CHLORIDE (BEAKER) 104 meq/L 98-107 (test code = 382) CO2 (BEAKER) (test 19 meq/L 22-29 L code = 355) BLOOD UREA NITROGEN 52 mg/dL 7-21 H (BEAKER) (test code = 354) CREATININE (BEAKER) 2.65 mg/dL 0.57-1.25 H Specimen slightly (test code = 358) hemolyzed GLUCOSE RANDOM 416 mg/dL 70-105 HH (BEAKER) (test code = 652) CALCIUM (BEAKER) 9.0 mg/dL 8.4-10.2 (test code = 697) EGFR (BEAKER) (test 25 mL/min/1.73 ESTIMA GILMA GFR IS code = 1092) sq m NOT ACCURATE CREATININE CLEARANCE IN PREDICTING GLOMERULAR FILTRATION RATE . ESTIMATED GFR I S NOT APPLICABLE FOR DIALYSIS PATIEN TS. Relocation Commissioner ID - DBPOCT-GLUCOSE [id number] 11:39:25 Test Item Value Reference Range Interpretation Comments POC-GLUCOSE METER 360 mg/dL 70-110 H : TESTED A T [facility] 6720 (ASHLEY) (test code = [place], 1538) 74[address]: Relocation Commissioner/Techni cuco ID = [id number] for MARTI MUNIZ, ABDOMEN/KUB, 1 VIEW [id number] 10:59:00Reason for exam:->[facility] : 1965 Sex: MFINAL REPORT Abdomen , one view History:Distention Comparison:07/17/2020 Findings:Nonobstructive bowel gas pattern. No definite free air, although assessment is technically limited by supine patient positioning. No definite bowel pneumatosis or portal venous gas. No calcifications along the expected course of the urinary tract. Impression:No acute findings Signed: Gr[place]ort Verified Date/Time: 07/19/2021 10:59:51 POCT-GLUCOSE [id number] 07:45:20 Test Item Value Reference Range Interpretation Comments POC-GLUCOSE METER 335 mg/dL 70-110 H : [facility] ([facility]ER) (test code = [place], 1538) 58[address]: Relocation Commissioner/Techni cuco ID = [id number] for MARTI MUNIZ BASIC METABOLIC [id number] 07:40:55 Test Item Value Reference Range Interpretation Comments SODIUM (BEAKER) 138 meq/L 136-145 (test code = 381) POTASSIUM (BEAKER) 5.1 meq/L 3.5-5.1 (test code = 379) CHLORIDE (BEAKER) 105 meq/L 98-107 (test code = 382) CO2 (BEAKER) (test 20 meq/L 22-29 L code = 355) BLOOD UREA NITROGEN 48 mg/dL 7-21 H (BEAKER) (test code = 354) CREATININE (BEAKER) 2.66 mg/dL 0.57-1.25 H (test code = 358) GLUCOSE RANDOM 376 mg/dL 70-105 H (BEAKER) (test code = 652) CALCIUM (BEAKER) 9.9 mg/dL 8.4-10.2 (test code = 697) EGFR (BEAKER) (test 25 mL/min/1.73 ESTIMA GILMA GFR IS code = 1092) sq m NOT ACCURATE CREATININE CLEARANCE IN PREDICTING GLOMERULAR FILTRATION RATE . ESTIMATED GFR I S NOT APPLICABLE FOR DIALYSIS PATIEN TS. Relocation Commissioner ID - DBCBC W/PLT COUNT & AUTO [id number] 06:42:03 Test Item Value Reference Range Interpretation Comments WHITE BLOOD CELL COUNT (BEAKER) 14.6 K/ L 3.5-10.5 H (test code = 775) RED BLOOD CELL COUNT (BEAKER) 3.96 M/ L 4.63-6.08 L (test code = 761) HEMOGLOBIN (BEAKER) (test code = 12.0 GM/DL 13.7-17.5 L 410) HEMATOCRIT (BEAKER) (test code = 37.8 % 40.1-51.0 L 411) MEAN CORPUSCULAR VOLUME (BEAKER) 95.5 fL 79.0-92.2 H (test code = 753) MEAN CORPUSCULAR HEMOGLOBIN 30.3 pg 25.7-32.2 (BEAKER) (test code = 751) MEAN CORPUSCULAR HEMOGLOBIN CONC 31.7 GM/DL 32.3-36.5 L (BEAKER) (test code = 752) RED CELL DISTRIBUTION WIDTH 14.5 % 11.6-14.4 H (BEAKER) (test code = 412) PLATELET COUNT (BEAKER) (test 219 K/CU MM 150-450 code = 756) MEAN PLATELET VOLUME (BEAKER) 11.3 fL 9.4-12.4 (test code = 754) NUCLEATED RED BLOOD CELLS 0 /100 WBC 0-0 (BEAKER) (test code = 413) NEUTROPHILS RELATIVE PERCENT 85 % (BEAKER) (test code = 429) LYMPHOCYTES RELATIVE PERCENT 8 % (BEAKER) (test code = 430) MONOCYTES RELATIVE PERCENT 7 % (BEAKER) (test code = 431) EOSINOPHILS RELATIVE PERCENT 0 % (BEAKER) (test code = 432) BASOPHILS RELATIVE PERCENT 0 % (BEAKER) (test code = 437) NEUTROPHILS ABSOLUTE COUNT 12.39 K/ L 1.78-5.38 H (BEAKER) (test code = 670) LYMPHOCYTES ABSOLUTE COUNT 1.16 K/ L 1.32-3.57 L (BEAKER) (test code = 414) MONOCYTES ABSOLUTE COUNT (BEAKER) 0.96 K/ L 0.30-0.82 H (test code = 415) EOSINOPHILS ABSOLUTE COUNT 0.03 K/ L 0.04-0.54 L (BEAKER) (test code = 416) BASOPHILS ABSOLUTE COUNT (BEAKER) 0.04 K/ L 0.01-0.08 (test code = 417) IMMATURE GRANULOCYTES-RELATIVE 0 % 0-1 PERCENT (BEAKER) (test code = 2801) [id number] 06:19:53 Test Item Value Reference Range Interpretation Comments MAGNESIUM (BEAKER) (test code = 3.1 mg/dL 1.6-2.6 H 627) Relocation Commissioner ID - [id number] 06:19:53 Test Item Value Reference Range Interpretation Comments PHOSPHORUS (BEAKER) (test code = 3.1 mg/dL 2.3-4.7 604) Relocation Commissioner ID - DBPOCT-GLUCOSE [id number] 21:10:57 Test Item Value Reference Range Interpretation Comments POC-GLUCOSE METER 339 mg/dL 70-110 H : TESTED A T [facility] 6720 ([facility]) (test code = [facility], 1538) 92441: Relocation Commissioner/Techni cuco ID = [id number] for ERNIE GALVIN POCT-GLUCOSE [id number] 17:11:55 Test Item Value Reference Range Interpretation Comments POC-GLUCOSE METER 361 mg/dL 70-110 H : TESTED A T [facility] 6720 ([facility]) (test code = [facility], 1538) 53552: Relocation Commissioner/Techni cuco ID = [id number] for MARTI MUNIZ POCT-GLUCOSE [id number] 13:06:55 Test Item Value Reference Range Interpretation Comments POC-GLUCOSE METER 301 mg/dL 70-110 H : TESTED A T [facility] 6720 ([facility]) (test code = [facility], 1538) 50325: Relocation Commissioner/Techni cuco ID = [id number] for MARTI MUNIZ HEMOGLOBIN [id number] 09:27:51 Test Item Value Reference Range Interpretation Comments HEMOGLOBIN A1C 9.4 % See_Comment H [Automated m essage] ELECTROPHORESIS ([facility]) The system which (test code = 3811) generated this result transmitted ref erence range: <=5.6%. The reference range was not used to int erpret this result as normal/abnormal . "The A1c is measured using a NGSP-certified method. HbA1c value equal to or greater than 6.5% as thediagnosis cutoff for diabetes. An HbA1c value of 5.7- 6.4% indicates increased risk for diabetes (prediabetes)."Relocation Commissioner ID - ADMPOCT- GLUCOSE [id number] 08:33:01 Test Item Value Reference Range Interpretation Comments POC-GLUCOSE METER 300 mg/dL 70-110 H : TESTED A T [facility] 6720 ([facility]) (test code = [facility], 1538) 79019: Relocation Commissioner/Techni cuco ID = [id number] for MARTI MUNIZ [id number] 05:18:14 Test Item Value Reference Range Interpretation Comments MAGNESIUM ([facility]) (test code = 2.3 mg/dL 1.6-2.6 627) Relocation Commissioner ID - MALINI [id number] 05:18:14 Test Item Value Reference Range Interpretation Comments PHOSPHORUS (BEAKER) (test code = 3.1 mg/dL 2.3-4.7 604) Relocation Commissioner TIA NAYAK WBASIC METABOLIC [id number] 05:18:13 Test Item Value Reference Range Interpretation Comments SODIUM (BEAKER) 142 meq/L 136-145 (test code = 381) POTASSIUM (BEAKER) 4.5 meq/L 3.5-5.1 (test code = 379) CHLORIDE (BEAKER) 108 meq/L 98-107 H (test code = 382) CO2 (BEAKER) (test 18 meq/L 22-29 L code = 355) BLOOD UREA NITROGEN 29 mg/dL 7-21 H (BEAKER) (test code = 354) CREATININE (BEAKER) 1.69 mg/dL 0.57-1.25 H (test code = 358) GLUCOSE RANDOM 306 mg/dL 70-105 H (BEAKER) (test code = 652) CALCIUM (BEAKER) 8.9 mg/dL 8.4-10.2 (test code = 697) EGFR (BEAKER) (test 42 mL/min/1.73 ESTIMA GILMA GFR IS code = 1092) sq m NOT ACCURATE CREATININE CLEARANCE IN PREDICTING GLOMERULAR FILTRATION RATE . ESTIMATED GFR I S NOT APPLICABLE FOR DIALYSIS PATIEN TS. Relocation Commissioner ID Nayely NAYAK WCBC W/PLT COUNT & AUTO [id number] 04:55:08 Test Item Value Reference Range Interpretation Comments WHITE BLOOD CELL COUNT (BEAKER) 10.2 K/ L 3.5-10.5 (test code = 775) RED BLOOD CELL COUNT (BEAKER) 3.47 M/ L 4.63-6.08 L (test code = 761) HEMOGLOBIN (BEAKER) (test code = 10.5 GM/DL 13.7-17.5 L 410) HEMATOCRIT (BEAKER) (test code = 33.7 % 40.1-51.0 L 411) MEAN CORPUSCULAR VOLUME (BEAKER) 97.1 fL 79.0-92.2 H (test code = 753) MEAN CORPUSCULAR HEMOGLOBIN 30.3 pg 25.7-32.2 (BEAKER) (test code = 751) MEAN CORPUSCULAR HEMOGLOBIN CONC 31.2 GM/DL 32.3-36.5 L (BEAKER) (test code = 752) RED CELL DISTRIBUTION WIDTH 14.2 % 11.6-14.4 (BEAKER) (test code = 412) PLATELET COUNT (BEAKER) (test 174 K/CU MM 150-450 code = 756) MEAN PLATELET VOLUME (BEAKER) 11.7 fL 9.4-12.4 (test code = 754) NUCLEATED RED BLOOD CELLS 0 /100 WBC 0-0 (BEAKER) (test code = 413) NEUTROPHILS RELATIVE PERCENT 86 % (BEAKER) (test code = 429) LYMPHOCYTES RELATIVE PERCENT 8 % (BEAKER) (test code = 430) MONOCYTES RELATIVE PERCENT 6 % (BEAKER) (test code = 431) EOSINOPHILS RELATIVE PERCENT 0 % (BEAKER) (test code = 432) BASOPHILS RELATIVE PERCENT 0 % (BEAKER) (test code = 437) NEUTROPHILS ABSOLUTE COUNT 8.72 K/ L 1.78-5.38 H (BEAKER) (test code = 670) LYMPHOCYTES ABSOLUTE COUNT 0.77 K/ L 1.32-3.57 L (BEAKER) (test code = 414) MONOCYTES ABSOLUTE COUNT (BEAKER) 0.63 K/ L 0.30-0.82 (test code = 415) EOSINOPHILS ABSOLUTE COUNT 0.01 K/ L 0.04-0.54 L (BEAKER) (test code = 416) BASOPHILS ABSOLUTE COUNT (BEAKER) 0.02 K/ L 0.01-0.08 (test code = 417) IMMATURE GRANULOCYTES-RELATIVE 0 % 0-1 PERCENT (BEAKER) (test code = 2801) POCT-GLUCOSE [id number] 16:38:17 Test Item Value Reference Range Interpretation Comments POC-GLUCOSE METER 208 mg/dL 70-110 H : TESTED A T [facility] 6720 (BEAKER) (test code = [place], 1538) 59267: Relocation Commissioner/Techni cuco ID = [id number] for ERYN MCDONALD RAD, ABDOMEN/KUB, 1 VIEW [id number] 14:17:00Reason for exam:->con[facility] : 1965 Sex: MFINAL REPORT CLINICAL HISTORY: concern for post op ileus TECHNIQUE: Supine abdomen COMPARISON: CT 10/22/2020 IMPRESSION: The bowel gas pattern is nonspecific. Free air and air-fluid levels are not definitively seen, but also cannot be excluded on the supine view. Signed: Mya Mendoza Verified Date/Time: 07/17/2021 14:17:14 Reading Location: [facility] Radiology Reading Room POCT- GLUCOSE [id number] 12:32:26 Test Item Value Reference Range Interpretation Comments POC-GLUCOSE METER 164 mg/dL 70-110 H : TESTED A T [facility] 6720 (BEAKER) (test code = [place] [facility], 1538) 87784: Relocation Commissioner/Techni cuco ID = [id number] for Faviola Montejo POCT-GLUCOSE [id number] 06:37:09 Test Item Value Reference Range Interpretation Comments POC-GLUCOSE METER 135 mg/dL 70-110 H : TESTED A T [facility] 7200 (BEAKER) (test code [address], = 1538) [facility] 7703 0: Relocation Commissioner/Techni cuco ID = [id number] for DIGNA SOOD [id number] 04:11:51 Test Item Value Reference Range Interpretation Comments PHOSPHORUS (BEAKER) (test code = 4.2 mg/dL 2.3-4.7 604) Relocation Commissioner ID - MALINI WBASIC METABOLIC [id number] 04:11:50 Test Item Value Reference Range Interpretation Comments SODIUM (BEAKER) 143 meq/L 136-145 (test code = 381) POTASSIUM (BEAKER) 4.7 meq/L 3.5-5.1 (test code = 379) CHLORIDE (BEAKER) 112 meq/L 98-107 H (test code = 382) CO2 (BEAKER) (test 22 meq/L 22-29 code = 355) BLOOD UREA NITROGEN 32 mg/dL 7-21 H (BEAKER) (test code = 354) CREATININE (BEAKER) 1.57 mg/dL 0.57-1.25 H (test code = 358) GLUCOSE RANDOM 141 mg/dL 70-105 H (BEAKER) (test code = 652) CALCIUM (BEAKER) 8.4 mg/dL 8.4-10.2 (test code = 697) EGFR (BEAKER) (test 46 mL/min/1.73 ESTIMA GILMA GFR IS code = 1092) sq m NOT ACCURATE CREATININE CLEARANCE IN PREDICTING GLOMERULAR FILTRATION RATE . ESTIMATED GFR I S NOT APPLICABLE FOR DIALYSIS PATIEN TS. Relocation Commissioner ID Nayely NAYAK [id number] 04:11:50 Test Item Value Reference Range Interpretation Comments MAGNESIUM (BEAKER) (test code = 2.0 mg/dL 1.6-2.6 627) Relocation Commissioner ID - MALINI WCBC W/PLT COUNT & AUTO [id number] 03:55:03 Test Item Value Reference Range Interpretation Comments WHITE BLOOD CELL COUNT (BEAKER) 7.6 K/ L 3.5-10.5 (test code = 775) RED BLOOD CELL COUNT (BEAKER) 3.37 M/ L 4.63-6.08 L (test code = 761) HEMOGLOBIN (BEAKER) (test code = 10.3 GM/DL 13.7-17.5 L 410) HEMATOCRIT (BEAKER) (test code = 32.3 % 40.1-51.0 L 411) MEAN CORPUSCULAR VOLUME (BEAKER) 95.8 fL 79.0-92.2 H (test code = 753) MEAN CORPUSCULAR HEMOGLOBIN 30.6 pg 25.7-32.2 (BEAKER) (test code = 751) MEAN CORPUSCULAR HEMOGLOBIN CONC 31.9 GM/DL 32.3-36.5 L (BEAKER) (test code = 752) RED CELL DISTRIBUTION WIDTH 14.2 % 11.6-14.4 (BEAKER) (test code = 412) PLATELET COUNT (BEAKER) (test 167 K/CU MM 150-450 code = 756) MEAN PLATELET VOLUME (BEAKER) 11.4 fL 9.4-12.4 (test code = 754) NUCLEATED RED BLOOD CELLS 0 /100 WBC 0-0 (BEAKER) (test code = 413) NEUTROPHILS RELATIVE PERCENT 71 % (BEAKER) (test code = 429) LYMPHOCYTES RELATIVE PERCENT 20 % (BEAKER) (test code = 430) MONOCYTES RELATIVE PERCENT 8 % (BEAKER) (test code = 431) EOSINOPHILS RELATIVE PERCENT 1 % (BEAKER) (test code = 432) BASOPHILS RELATIVE PERCENT 1 % (BEAKER) (test code = 437) NEUTROPHILS ABSOLUTE COUNT 5.38 K/ L 1.78-5.38 (BEAKER) (test code = 670) LYMPHOCYTES ABSOLUTE COUNT 1.52 K/ L 1.32-3.57 (BEAKER) (test code = 414) MONOCYTES ABSOLUTE COUNT (BEAKER) 0.57 K/ L 0.30-0.82 (test code = 415) EOSINOPHILS ABSOLUTE COUNT 0.08 K/ L 0.04-0.54 (BEAKER) (test code = 416) BASOPHILS ABSOLUTE COUNT (BEAKER) 0.05 K/ L 0.01-0.08 (test code = 417) IMMATURE GRANULOCYTES-RELATIVE 0 % 0-1 PERCENT (BEAKER) (test code = 2801) POCT-GLUCOSE [id number] 00:05:18 Test Item Value Reference Range Interpretation Comments POC-GLUCOSE METER 143 mg/dL 70-110 H : TESTED A T [facility] 7200 (BEAKER) (test code [address], = 1538) [facility] 7703 0: Relocation Commissioner/Techni cuco ID = [id number] for INDIGO , SENORA POC ACTIVATED CLOTTING [id number] 16:45:48 Test Item Value Reference Range Interpretation Comments Activated Clotting Time 130 sec : 74 -137 seconds, (test code = 3184-9) Baselin e: TESTED AT [facility] [address] [facility] [place], 770 30: Relocation Commissioner/Techni cuco ID = [id number] for TA BUCK [facility]CIRA [facility] [id number] 16:45:48 Test Item Value Reference Range Interpretation Comments Activated Clotting Time 130 sec : 74 -137 seconds, (test code = 3184-9) Baselin e: TESTED AT [address], 770 30: Relocation Commissioner/Techni cuco ID = [id number] for MO CIELO, ALCIRA [facility] ACTIVATED CLOTTING [id number] 16:45:48 Test Item Value Reference Range Interpretation Comments Activated Clotting Time 130 sec : 74 -137 seconds, (test code = 3184-9) Baselin e: TESTED AT [address], 770 30: Relocation Commissioner/Techni cuco ID = [id number] for MO CIELO, ALCIRA [facility] ACTIVATED CLOTTING [id number] 16:45:48 Test Item Value Reference Range Interpretation Comments Activated Clotting Time 130 sec : 74 -137 seconds, (test code = 3184-9) Baselin e: TESTED AT [address], 770 30: Relocation Commissioner/Techni cuco ID = [id number] for MO CIELO, ALCRIA [facility] ACTIVATED CLOTTING [id number] 16:45:48 Test Item Value Reference Range Interpretation Comments Activated Clotting Time 130 sec : 74 -137 seconds, (test code = 3184-9) Baselin e: TESTED AT [address], 770 30: Relocation Commissioner/Techni cuco ID = [id number] for MO CIELO, ALCIRA [facility] ACTIVATED CLOTTING [id number] 16:45:48 Test Item Value Reference Range Interpretation Comments Activated Clotting Time 130 sec : 74 -137 seconds, (test code = 3184-9) Baselin e: TESTED AT [address], 770 30: Relocation Commissioner/Techni cuco ID = [id number] for MO CIELO, ALCIRA [facility] ACTIVATED CLOTTING [id number] 16:45:48 Test Item Value Reference Range Interpretation Comments Activated Clotting Time 130 sec : 74 -137 seconds, (test code = 3184-9) Baselin e: TESTED AT [address], 770 30: Relocation Commissioner/Techni cuco ID = [id number] for MO CIELO, ALCIRA [facility][id number] 16:45:48 Test Item Value Reference Range Interpretation Comments ACTIVATED CLOTTING TIME 130 sec : 74 -137 seconds, (BEAKER) (test code = Baseli ne: TESTED AT 441) [address], [facility] 30: Relocation Commissioner/Techni cuco ID = [id number] for MO CIELO, RASHIED [id number] 16:45:48 Test Item Value Reference Range Interpretation Comments ACTIVATED CLOTTING TIME 220 sec : 74 -137 seconds, (BEAKER) (test code = Baseli ne: TESTED AT 441) [address], [facility] 30: Relocation Commissioner/Techni cuco ID = [id number] for MO CIELO, RASHIED [id number] 16:45:48 Test Item Value Reference Range Interpretation Comments ACTIVATED CLOTTING TIME 255 sec : 74 -137 seconds, (BEAKER) (test code = Baseli ne: TESTED AT [facility]) [place] [address] 30: Relocation Commissioner/Techni cuco ID = [id number] for MO CIELO, RASHIED [id number] 16:45:47 Test Item Value Reference Range Interpretation Comments ACTIVATED CLOTTING TIME 249 sec : 74 -137 seconds, (BEAKER) (test code = Baseli ne: TESTED AT [facility]) [address], [facility] 30: Relocation Commissioner/Techni cuco ID = [id number] for MO CIELO, RASHIED [id number] 16:45:14 Test Item Value Reference Range Interpretation Comments ACTIVATED CLOTTING TIME 249 sec : 74 -137 seconds, (BEAKER) (test code = Baseli ne: TESTED AT [facility]) [address], [facility] 30: Relocation Commissioner/Techni cuco ID = [id number] for LETHRIDGE, BURDICK KWADWO [id number] 16:45:14 Test Item Value Reference Range Interpretation Comments ACTIVATED CLOTTING TIME 255 sec : 74 -137 seconds, (BEAKER) (test code = Baseli ne: TESTED AT [facility]) [address], [facility] 30: Relocation Commissioner/Techni cuco ID = [id number] for MO CIELO, RASHIED [id number] 16:45:08 Test Item Value Reference Range Interpretation Comments ACTIVATED CLOTTING TIME 261 sec : 74 -137 seconds, (BEAKER) (test code = Baseli ne: TESTED AT [facility]) [facility] [address] [facility], [address]70 30: Relocation Commissioner/Techni cuco ID = [id number] for Ramon Kolb [id number] 16:45:08 Test Item Value Reference Range Interpretation Comments ACTIVATED CLOTTING TIME 297 sec : 74 -137 seconds, (BEAKER) (test code = Baseli ne: TESTED AT 441) [facility] 67[address] [facility], 770 30: Relocation Commissioner/Techni cuco ID = [id number] for Ramon Kolb [id number] 16:17:43 Test Item Value Reference Range Interpretation Comments MAGNESIUM (BEAKER) 1.8 mg/dL 1.6-2.6 Specimen slightly (test code = 627) hemolyzed Relocation Commissioner ID - KEEGAN [id number] 16:17:43 Test Item Value Reference Range Interpretation Comments PHOSPHORUS (BEAKER) 3.8 mg/dL 2.3-4.7 Specimen slightly (test code = 604) hemolyzed Relocation Commissioner ID - KEEGAN LBASIC METABOLIC [id number] 16:17:43 Test Item Value Reference Range Interpretation Comments SODIUM (BEAKER) 141 meq/L 136-145 (test code = 381) POTASSIUM (BEAKER) 5.0 meq/L 3.5-5.1 Specimen slightly (test code = 379) hemolyzed CHLORIDE (BEAKER) 112 meq/L 98-107 H (test code = 382) CO2 (BEAKER) (test 22 meq/L 22-29 code = 355) BLOOD UREA NITROGEN 32 mg/dL 7-21 H (BEAKER) (test code = 354) CREATININE (BEAKER) 1.56 mg/dL 0.57-1.25 H Specimen slightly (test code = 358) hemolyzed GLUCOSE RANDOM 174 mg/dL 70-105 H (BEAKER) (test code = 652) CALCIUM (BEAKER) 8.5 mg/dL 8.4-10.2 (test code = 697) EGFR (BEAKER) (test 46 mL/min/1.73 ESTIMA GILMA GFR IS code = 1092) sq m NOT ACCURATE CREATININE CLEARANCE IN PREDICTING GLOMERULAR FILTRATION RATE . ESTIMATED GFR I S NOT APPLICABLE FOR DIALYSIS PATIEN TS. Relocation Commissioner ID - KEEGAN [id number] 16:09:17 Test Item Value Reference Range Interpretation Comments PARTIAL THROMBOPLASTIN TIME 28.1 seconds 22.5-36.0 (BEAKER) (test code = 760) PROTHROMBIN [id number] 16:08:39 Test Item Value Reference Range Interpretation Comments PROTIME (BEAKER) 15.1 seconds 11.9-14.2 H (test code = 759) INR (BEAKER) (test 1.20 See_Comment [Automat ed message] code = 370) The system [employer] generated this result transmitted ref erence range: <=5.90. The reference range was not used to int erpret this result as normal/abnormal . RECOMMENDED COUMADIN/WARFARIN INR THERAPY RANGESSTANDARD DOSE: 2.0 - 3.0 Includes: PROPHYLAXIS for venous thrombosis, systemic embolization; TREATMENT for venous thrombosis and/or pulmonary embolus.HIGH RISK: Target INR is 2.5-3.5 for patients with mechanical heart valves.CBC W/PLT COUNT & AUTO [id number] 16:05:22 Test Item Value Reference Range Interpretation Comments WHITE BLOOD CELL COUNT (BEAKER) 10.4 K/ L 3.5-10.5 (test code = 775) RED BLOOD CELL COUNT (BEAKER) 3.38 M/ L 4.63-6.08 L (test code = 761) HEMOGLOBIN (BEAKER) (test code = 10.5 GM/DL 13.7-17.5 L 410) HEMATOCRIT (BEAKER) (test code = 31.6 % 40.1-51.0 L 411) MEAN CORPUSCULAR VOLUME (BEAKER) 93.5 fL 79.0-92.2 H (test code = 753) MEAN CORPUSCULAR HEMOGLOBIN 31.1 pg 25.7-32.2 (BEAKER) (test code = 751) MEAN CORPUSCULAR HEMOGLOBIN CONC 33.2 GM/DL 32.3-36.5 (BEAKER) (test code = 752) RED CELL DISTRIBUTION WIDTH 13.9 % 11.6-14.4 (BEAKER) (test code = 412) PLATELET COUNT (BEAKER) (test 150 K/CU MM 150-450 code = 756) MEAN PLATELET VOLUME (BEAKER) 11.1 fL 9.4-12.4 (test code = 754) NUCLEATED RED BLOOD CELLS 0 /100 WBC 0-0 (BEAKER) (test code = 413) NEUTROPHILS RELATIVE PERCENT 90 % (BEAKER) (test code = 429) LYMPHOCYTES RELATIVE PERCENT 7 % (BEAKER) (test code = 430) MONOCYTES RELATIVE PERCENT 2 % (BEAKER) (test code = 431) EOSINOPHILS RELATIVE PERCENT 0 % (BEAKER) (test code = 432) BASOPHILS RELATIVE PERCENT 0 % (BEAKER) (test code = 437) NEUTROPHILS ABSOLUTE COUNT 9.36 K/ L 1.78-5.38 H (BEAKER) (test code = 670) LYMPHOCYTES ABSOLUTE COUNT 0.74 K/ L 1.32-3.57 L (BEAKER) (test code = 414) MONOCYTES ABSOLUTE COUNT (BEAKER) 0.20 K/ L 0.30-0.82 L (test code = 415) EOSINOPHILS ABSOLUTE COUNT 0.02 K/ L 0.04-0.54 L (BEAKER) (test code = 416) BASOPHILS ABSOLUTE COUNT (BEAKER) 0.04 K/ L 0.01-0.08 (test code = 417) IMMATURE GRANULOCYTES-RELATIVE 0 % 0-1 PERCENT (BEAKER) (test code = 2801) HGB/HCT (H&H)-Stat [id number] 13:49:14 Test Item Value Reference Range Interpretation Comments Hemoglobin (test code = 11.4 See_Comment L [Au tomated message] 786-4) The system [employer] generated this result transmitted ref erence range: 13.0 - 1 6.8 GM/DL. The refe rence range was not u sed to interpret this result as normal/abnor mal. Hematocrit (test code = 34.0 % 40.0-50.0 L 4544-3) Lab Interpretation (test Abnormal code = 53178-8) [facility] [id number] 13:49:14 Test Item Value Reference Range Interpretation Comments Glucose (test code = 2345-7) 158 mg/dL 70-110 H Lab Interpretation (test code = Abnormal 45200-8) [facility] [id number] 13:49:14 Test Item Value Reference Range Interpretation Comments Hemoglobin (test code = 11.4 See_Comment L [Au tomated message] 786-4) The system [employer] generated this result transmitted ref erence range: 13.0 - 1 6.8 GM/DL. The refe rence range was not u sed to interpret this result as normal/abnor mal. Hematocrit (test code = 34.0 % 40.0-50.0 L 4544-3) Lab Interpretation (test Abnormal code = 26865-9) [facility] [id number] 13:49:14 Test Item Value Reference Range Interpretation Comments Glucose (test code = 2345-7) 158 mg/dL 70-110 H Lab Interpretation (test code = Abnormal 65725-0) [facility] [id number] 13:49:14 Test Item Value Reference Range Interpretation Comments Hemoglobin (test code = 11.4 See_Comment L [Au tomated message] 786-4) The system [employer] generated this result transmitted ref erence range: 13.0 - 1 6.8 GM/DL. The refe rence range was not u sed to interpret this result as normal/abnor mal. Hematocrit (test code = 34.0 % 40.0-50.0 L 4544-3) Lab Interpretation (test Abnormal code = 58493-5) [facility] [id number] 13:49:14 Test Item Value Reference Range Interpretation Comments Glucose (test code = 2345-7) 158 mg/dL 70-110 H Lab Interpretation (test code = Abnormal 54634-9) [facility] [id number] 13:49:14 Test Item Value Reference Range Interpretation Comments Hemoglobin (test code = 11.4 See_Comment L [Au tomated message] 786-4) The system [employer] generated this result transmitted ref erence range: 13.0 - 1 6.8 GM/DL. The refe rence range was not u sed to interpret this result as normal/abnor mal. Hematocrit (test code = 34.0 % 40.0-50.0 L 4544-3) Lab Interpretation (test Abnormal code = 86631-1) [facility] [id number] 13:49:14 Test Item Value Reference Range Interpretation Comments Glucose (test code = 2345-7) 158 mg/dL 70-110 H Lab Interpretation (test code = Abnormal 74462-7) [facility] [id number] 13:49:14 Test Item Value Reference Range Interpretation Comments Hemoglobin (test code = 11.4 See_Comment L [Au tomated message] 786-4) The system [employer] generated this result transmitted ref erence range: 13.0 - 1 6.8 GM/DL. The refe rence range was not u sed to interpret this result as normal/abnor mal. Hematocrit (test code = 34.0 % 40.0-50.0 L 4544-3) Lab Interpretation (test Abnormal code = 60373-7) [facility] [id number] 13:49:14 Test Item Value Reference Range Interpretation Comments Glucose (test code = 2345-7) 158 mg/dL 70-110 H Lab Interpretation (test code = Abnormal 80506-4) [facility] [id number] 13:49:14 Test Item Value Reference Range Interpretation Comments Hemoglobin (test code = 11.4 See_Comment L [Au tomated message] 786-4) The system [employer] generated this result transmitted ref erence range: 13.0 - 1 6.8 GM/DL. The refe rence range was not u sed to interpret this result as normal/abnor mal. Hematocrit (test code = 34.0 % 40.0-50.0 L 4544-3) Lab Interpretation (test Abnormal code = 30826-9) [facility] [id number] 13:49:14 Test Item Value Reference Range Interpretation Comments Glucose (test code = 2345-7) 158 mg/dL 70-110 H Lab Interpretation (test code = Abnormal 83924-4) [facility] [id number] 13:49:14 Test Item Value Reference Range Interpretation Comments Hemoglobin (test code = 11.4 See_Comment L [Au tomated message] 786-4) The system ic h generated this result transmitted ref erence range: 13.0 - 1 6.8 GM/DL. The refe rence range was not u sed to interpret this result as normal/abnor mal. Hematocrit (test code = 34.0 % 40.0-50.0 L 4544-3) Lab Interpretation (test Abnormal code = 68149-4) [facility] [id number] 13:49:14 Test Item Value Reference Range Interpretation Comments Glucose (test code = 2345-7) 158 mg/dL 70-110 H Lab Interpretation (test code = Abnormal 99466-9) [facility] [id number] 13:49:14 Test Item Value Reference Range Interpretation Comments GLUCOSE RANDOM (BEAKER) (test code 158 mg/dL 70-110 H = 652) HGB/HCT (H&H) - STAT [id number] 13:49:14 Test Item Value Reference Range Interpretation Comments HEMOGLOBIN (BEAKER) (test code = 11.4 GM/DL 13.0-16.8 L 410) HEMATOCRIT (BEAKER) (test code = 34.0 % 40.0-50.0 L 411) Blood gas, [id number] 13:49:13 Test Item Value Reference Range Interpretation Comments pH, Arterial (test code 7.32 7.35-7.45 L = 2744-1) pCO2, Arterial (test 40 See_Comment [Autom ated code = 2018-) message] The system which generated this result transmitted reference range : 35 - 45 mm Hg. The reference range was not used to interpret this result as normal/abnormal . pO2, Arterial (test 123 See_Comment H [Automa gilma code = 2703-7) message] The system which generated this result transmitted reference range : 80 - 90 mm Hg. The reference range was not used to interpret this result as normal/abnormal . O2 Sat, Arterial (test 98.2 % 96.0-97.0 H code = 2708-6) HCO3, Arterial (test 20 mmol/L 21-29 L code = 1960-4) Base Excess, Arterial -5.8 mmol/L -2.0-3.0 L (test code = 1925-7) Patient Temperature 37.0 (test code = 8310-5) FIO2 (test code = 1819) 100 Lab Interpretation Abnormal (test code = 18150-8) [facility] [id number] 13:49:13 Test Item Value Reference Range Interpretation Comments pH, Arterial (test code 7.32 7.35-7.45 L = 2744-1) pCO2, Arterial (test 40 See_Comment [Autom ated code = 2019-01) message] The system which generated this result transmitted reference range : 35 - 45 mm Hg. The reference range was not used to interpret this result as normal/abnormal . pO2, Arterial (test 123 See_Comment H [Automa gilma code = 2703-7) message] The system which generated this result transmitted reference range : 80 - 90 mm Hg. The reference range was not used to interpret this result as normal/abnormal . O2 Sat, Arterial (test 98.2 % 96.0-97.0 H code = 2708-6) HCO3, Arterial (test 20 mmol/L 21-29 L code = 1960-4) Base Excess, Arterial -5.8 mmol/L -2.0-3.0 L (test code = 1925-7) Patient Temperature 37.0 (test code = 8310-5) FIO2 (test code = 1819) 100 Lab Interpretation Abnormal (test code = 30436-6) [facility] gas, [id number] 13:49:13 Test Item Value Reference Range Interpretation Comments pH, Arterial (test code 7.32 7.35-7.45 L = 2744-1) pCO2, Arterial (test 40 See_Comment [Autom ated code = 2019-01) message] The system which generated this result transmitted reference range : 35 - 45 mm Hg. The reference range was not used to interpret this result as normal/abnormal . pO2, Arterial (test 123 See_Comment H [Automa gilma code = 2703-7) message] The system which generated this result transmitted reference range : 80 - 90 mm Hg. The reference range was not used to interpret this result as normal/abnormal . O2 Sat, Arterial (test 98.2 % 96.0-97.0 H code = 2708-6) HCO3, Arterial (test 20 mmol/L 21-29 L code = 1960-4) Base Excess, Arterial -5.8 mmol/L -2.0-3.0 L (test code = 1925-7) Patient Temperature 37.0 (test code = 8310-5) FIO2 (test code = 1819) 100 Lab Interpretation Abnormal (test code = 86993-7) [facility] [id number] 13:49:13 Test Item Value Reference Range Interpretation Comments pH, Arterial (test code 7.32 7.35-7.45 L = 2744-1) pCO2, Arterial (test 40 See_Comment [Autom ated code = 2019-01) message] The system which generated this result transmitted reference range : 35 - 45 mm Hg. The reference range was not used to interpret this result as normal/abnormal . pO2, Arterial (test 123 See_Comment H [Automa gilma code = 2703-7) message] The system which generated this result transmitted reference range : 80 - 90 mm Hg. The reference range was not used to interpret this result as normal/abnormal . O2 Sat, Arterial (test 98.2 % 96.0-97.0 H code = 2708-6) HCO3, Arterial (test 20 mmol/L 21-29 L code = 1960-4) Base Excess, Arterial -5.8 mmol/L -2.0-3.0 L (test code = 1925-7) Patient Temperature 37.0 (test code = 8310-5) FIO2 (test code = 1819) 100 Lab Interpretation Abnormal (test code = 07197-2) [facility] gas, [id number] 13:49:13 Test Item Value Reference Range Interpretation Comments pH, Arterial (test code 7.32 7.35-7.45 L = 2744-1) pCO2, Arterial (test 40 See_Comment [Autom ated code = 2019-01) message] The system which generated this result transmitted reference range : 35 - 45 mm Hg. The reference range was not used to interpret this result as normal/abnormal . pO2, Arterial (test 123 See_Comment H [Automa gilma code = 2703-7) message] The system which generated this result transmitted reference range : 80 - 90 mm Hg. The reference range was not used to interpret this result as normal/abnormal . O2 Sat, Arterial (test 98.2 % 96.0-97.0 H code = 2708-6) HCO3, Arterial (test 20 mmol/L 21-29 L code = 1960-4) Base Excess, Arterial -5.8 mmol/L -2.0-3.0 L (test code = 1925-7) Patient Temperature 37.0 (test code = 8310-5) FIO2 (test code = 1819) 100 Lab Interpretation Abnormal (test code = 99569-9) [facility] [id number] 13:49:13 Test Item Value Reference Range Interpretation Comments pH, Arterial (test code 7.32 7.35-7.45 L = 2744-1) pCO2, Arterial (test 40 See_Comment [Autom ated code = 2019-01) message] The system which generated this result transmitted reference range : 35 - 45 mm Hg. The reference range was not used to interpret this result as normal/abnormal . pO2, Arterial (test 123 See_Comment H [Automa gilma code = 2703-7) message] The system which generated this result transmitted reference range : 80 - 90 mm Hg. The reference range was not used to interpret this result as normal/abnormal . O2 Sat, Arterial (test 98.2 % 96.0-97.0 H code = 2708-6) HCO3, Arterial (test 20 mmol/L 21-29 L code = 1960-4) Base Excess, Arterial -5.8 mmol/L -2.0-3.0 L (test code = 1925-7) Patient Temperature 37.0 (test code = 8310-5) FIO2 (test code = 1819) 100 Lab Interpretation Abnormal (test code = 11544-2) [facility], [id number] 13:49:13 Test Item Value Reference Range Interpretation Comments pH, Arterial (test code 7.32 7.35-7.45 L = 2744-1) pCO2, Arterial (test 40 See_Comment [Autom ated code = 2019-01) message] The system which generated this result transmitted reference range : 35 - 45 mm Hg. The reference range was not used to interpret this result as normal/abnormal . pO2, Arterial (test 123 See_Comment H [Automa gilma code = 2703-7) message] The system which generated this result transmitted reference range : 80 - 90 mm Hg. The reference range was not used to interpret this result as normal/abnormal . O2 Sat, Arterial (test 98.2 % 96.0-97.0 H code = 2708-6) HCO3, Arterial (test 20 mmol/L 21-29 L code = 1960-4) Base Excess, Arterial -5.8 mmol/L -2.0-3.0 L (test code = 1925-7) Patient Temperature 37.0 (test code = 8310-5) FIO2 (test code = 1819) 100 Lab Interpretation Abnormal (test code = 38199-6) [facility], [id number] 13:49:13 Test Item Value Reference Range Interpretation Comments PH ARTERIAL (BEAKER) (test code = 7.32 7.35-7.45 L 383) PCO2 ARTERIAL (BEAKER) (test code 40 mm Hg 35-45 = 384) PO2 ARTERIAL (BEAKER) (test code 123 mm Hg 80-90 H = 385) O2 SATURATION ARTERIAL (BEAKER) 98.2 % 96.0-97.0 H (test code = 386) HCO3 ARTERIAL (BEAKER) (test code 20 mmol/L 21-29 L = 388) BASE EXCESS ARTERIAL (BEAKER) -5.8 mmol/L -2.0-3.0 L (test code = 387) PATIENT TEMPERATURE (BEAKER) 37.0 (test code = 1818) FIO2 (BEAKER) (test code = 1819) 100.0 Sodium Na-Stat [id number] 13:49:04 Test Item Value Reference Range Interpretation Comments Sodium (test code = 2951-2) 140 meq/L 136-145 Lab Interpretation (test code = Normal 46177-0) [facility] [id number] 13:49:04 Test Item Value Reference Range Interpretation Comments Potassium (test code = 2823-3) 4.7 meq/L 3.6-5.5 Lab Interpretation (test code = Normal 82160-2) [facility] [id number] 13:49:04 Test Item Value Reference Range Interpretation Comments Sodium (test code = 2951-2) 140 meq/L 136-145 Lab Interpretation (test code = Normal 78854-8) [facility] [id number] 13:49:04 Test Item Value Reference Range Interpretation Comments Potassium (test code = 2823-3) 4.7 meq/L 3.6-5.5 Lab Interpretation (test code = Normal 64448-4) [facility] Na-Stat [id number] 13:49:04 Test Item Value Reference Range Interpretation Comments Sodium (test code = 2951-2) 140 meq/L 136-145 Lab Interpretation (test code = Normal 82925-7) [facility] [id number] 13:49:04 Test Item Value Reference Range Interpretation Comments Potassium (test code = 2823-3) 4.7 meq/L 3.6-5.5 Lab Interpretation (test code = Normal 96527-2) [facility] Na-Stat [id number] 13:49:04 Test Item Value Reference Range Interpretation Comments Sodium (test code = 2951-2) 140 meq/L 136-145 Lab Interpretation (test code = Normal 53901-1) [facility] [id number] 13:49:04 Test Item Value Reference Range Interpretation Comments Potassium (test code = 2823-3) 4.7 meq/L 3.6-5.5 Lab Interpretation (test code = Normal 91228-8) [facility] Na-Stat [id number] 13:49:04 Test Item Value Reference Range Interpretation Comments Sodium (test code = 2951-2) 140 meq/L 136-145 Lab Interpretation (test code = Normal 84088-8) [facility] [id number] 13:49:04 Test Item Value Reference Range Interpretation Comments Potassium (test code = 2823-3) 4.7 meq/L 3.6-5.5 Lab Interpretation (test code = Normal 88676-9) [facility] Na-Stat [id number] 13:49:04 Test Item Value Reference Range Interpretation Comments Sodium (test code = 2951-2) 140 meq/L 136-145 Lab Interpretation (test code = Normal 26788-9) [facility] [id number] 13:49:04 Test Item Value Reference Range Interpretation Comments Potassium (test code = 2823-3) 4.7 meq/L 3.6-5.5 Lab Interpretation (test code = Normal 64883-1) [facility] [id number] 13:49:04 Test Item Value Reference Range Interpretation Comments Sodium (test code = 2951-2) 140 meq/L 136-145 Lab Interpretation (test code = Normal 27844-5) [facility] [id number] 13:49:04 Test Item Value Reference Range Interpretation Comments Potassium (test code = 2823-3) 4.7 meq/L 3.6-5.5 Lab Interpretation (test code = Normal 48542-2) [facility] [id number] 13:49:04 Test Item Value Reference Range Interpretation Comments SODIUM (BEAKER) (test code = 381) 140 meq/L 136-145 POTASSIUM-STAT [id number] 13:49:04 Test Item Value Reference Range Interpretation Comments POTASSIUM (BEAKER) (test code = 4.7 meq/L 3.6-5.5 379) HGB/HCT (H&H) - STAT [id number] 08:57:21 Test Item Value Reference Range Interpretation Comments HEMOGLOBIN (BEAKER) (test code = 11.8 GM/DL 13.0-16.8 L 410) HEMATOCRIT (BEAKER) (test code = 35.0 % 40.0-50.0 L 411) GLUCOSE-STAT [id number] 08:57:16 Test Item Value Reference Range Interpretation Comments GLUCOSE RANDOM (BEAKER) (test code 146 mg/dL 70-110 H = 652) BLOOD GAS, [id number] 08:57:10 Test Item Value Reference Range Interpretation Comments PH ARTERIAL (BEAKER) (test code = 7.46 7.35-7.45 H 383) PCO2 ARTERIAL (BEAKER) (test code 28 mm Hg 35-45 L = 384) PO2 ARTERIAL (BEAKER) (test code 255 mm Hg 80-90 H = 385) O2 SATURATION ARTERIAL (BEAKER) 99.6 % 96.0-97.0 H (test code = 386) HCO3 ARTERIAL (BEAKER) (test code 21 mmol/L 21-29 = 388) BASE EXCESS ARTERIAL (BEAKER) -3.9 mmol/L -2.0-3.0 L (test code = 387) PATIENT TEMPERATURE (BEAKER) 30.0 (test code = 1818) FIO2 (BEAKER) (test code = 1819) 100.0 POTASSIUM-STAT [id number] 08:57:05 Test Item Value Reference Range Interpretation Comments POTASSIUM (BEAKER) (test code = 4.0 meq/L 3.6-5.5 379) SODIUM NA-STAT [id number] 08:57:04 Test Item Value Reference Range Interpretation Comments SODIUM (BEAKER) (test code = 381) 141 meq/L 136-145 POCT-GLUCOSE [id number] 06:43:47 Test Item Value Reference Range Interpretation Comments POC-GLUCOSE METER 171 mg/dL 70-110 H : TESTED A T [facility] 6720 (BEAKER) (test code = [place], 1538) [id number]: Relocation Commissioner/Techni cuco ID = [id number] for YANET COKER SARS-COV2/RT-PCR ([facility])2021-07-13 21:39:40 Test Item Value Reference Range Interpretation Comments SARS-COV2/RT-PCR (test code = Negative Negative 6191651) Negative result for this test determines that [...] occur if a specimen is improperly collected, transported, or handled. A false negative result should be considered if patient's recent exposures or clinical presentation indicate that COVID-19 (SARS-CoV-2) is likely and diagnostic tests for other causes of illness are negative. Re-testing should be considered in cases of suspected false negatives.The limit of detection for this assay is 100 copies/mL.This SARS-CoV-2 test is a real-time RT_PCR test intended for the qualitative detection of nucleic acid from SARS-CoV-2 in a nasopharyngeal swab specimen collected from individuals suspected of COVID-19 by their healthcare provider.This test [...] 564(g) of the Act.Testing was performed using Inventalator SARS-CoV-2 assay.Fact Sheet for Healthcare Providers:https://www.[employer]/kvng/RT SARS-CoV-2 HCP Fact Sheet 51- 627097.pdfFact Sheet for Healthcare Patients:https://www.[employer]/kvng/RT SARS-CoV-2 Patient Fact Sheet EN 51-545814A2.pdfBASIC METABOLIC [id number] 11:47:49 Test Item Value Reference Range Interpretation Comments SODIUM (BEAKER) 137 meq/L 136-145 (test code = 381) POTASSIUM (BEAKER) 4.4 meq/L 3.5-5.1 (test code = 379) CHLORIDE (BEAKER) 106 meq/L 98-107 (test code = 382) CO2 (BEAKER) (test 23 meq/L 22-29 code = 355) BLOOD UREA NITROGEN 40 mg/dL 7-21 H (BEAKER) (test code = 354) CREATININE (BEAKER) 1.50 mg/dL 0.57-1.25 H (test code = 358) GLUCOSE RANDOM 196 mg/dL 70-105 H (BEAKER) (test code = 652) CALCIUM (BEAKER) 9.8 mg/dL 8.4-10.2 (test code = 697) EGFR (BEAKER) (test 48 mL/min/1.73 ESTIMA GILMA GFR IS code = 1092) sq m NOT ACCURATE CREATININE CLEARANCE IN PREDICTING GLOMERULAR FILTRATION RATE . ESTIMATED GFR I S NOT APPLICABLE FOR DIALYSIS PATIEN TS. Relocation Commissioner ID - DBSpecimen slightly qwsavarLnzmmfmlbi8149-53-32 11:33:44 Test Item Value Reference Range Interpretation Comments Hemoglobin (test code 14.4 See_Comment [Auto mated = 786-4) message] The system which generated this result transmit gilma reference range : 13.7 - 17.5 GM/ DL. The reference range was not u sed to interpret th is result as normal/abnormal . JUANPABLO (test code = JUANPABLO) Relocation Commissioner ID - [id number] Lab Interpretation Normal (test code = 06499-1) [facility] 11:33:44 Test Item Value Reference Range Interpretation Comments Hemoglobin (test code 14.4 See_Comment [Auto mated = 786-4) message] The system which generated this result transmit gilma reference range : 13.7 - 17.5 GM/ DL. The reference range was not u sed to interpret th is result as normal/abnormal . JUANPABLO (test code = JUANPABLO) Relocation Commissioner ID - [id number] Lab Interpretation Normal (test code = 26688-2) [facility] 11:33[facility]44 Test Item Value Reference Range Interpretation Comments Hemoglobin (test code 14.4 See_Comment [Auto mated = 786-4) message] The system which generated this result transmit gilma reference range : 13.7 - 17.5 GM/ DL. The reference range was not u sed to interpret th is result as normal/abnormal . JUANPABLO (test code = JUANPABLO) Relocation Commissioner ID - [id number] Lab Interpretation Normal (test code = 23515-8) [facility] 11:33:44 Test Item Value Reference Range Interpretation Comments Hemoglobin (test code 14.4 See_Comment [Auto mated = 786-4) message] The system which generated this result transmit gilma reference range : 13.7 - 17.5 GM/ DL. The reference range was not u sed to interpret th is result as normal/abnormal . JUANPABLO (test code = JUANPABLO) Relocation Commissioner ID - [id number] Lab Interpretation Normal (test code = 95053-1) [facility] 11:33:44 Test Item Value Reference Range Interpretation Comments Hemoglobin (test code 14.4 See_Comment [Auto mated = 786-4) message] The system which generated this result transmit gilma reference range : 13.7 - 17.5 GM/ DL. The reference range was not u sed to interpret th is result as normal/abnormal . JUANPABLO (test code = JUANPABLO) Relocation Commissioner ID - [id number] Lab Interpretation Normal (test code = 02975-5) [facility] 11:33:44 Test Item Value Reference Range Interpretation Comments Hemoglobin (test code 14.4 See_Comment [Auto mated = 786-4) message] The system which generated this result transmit gilma reference range : 13.7 - 17.5 GM/ DL. The reference range was not u sed to interpret th is result as normal/abnormal . JUANPABLO (test code = JUANPABLO) Relocation Commissioner ID - [id number] Lab Interpretation Normal (test code = 90921-5) [facility] 11:33:44 Test Item Value Reference Range Interpretation Comments Hemoglobin (test code 14.4 See_Comment [Auto mated = 786-4) message] The system which generated this result transmit gilma reference range : 13.7 - 17.5 GM/ DL. The reference range was not u sed to interpret th is result as normal/abnormal . JUANPABLO (test code = JUANPABLO) Relocation Commissioner ID - [id number] Lab Interpretation Normal (test code = 00385-4) [facility] 11:33:44 Test Item Value Reference Range Interpretation Comments HEMOGLOBIN (BEAKER) (test code = 14.4 GM/DL 13.7-17.5 410) Relocation Commissioner ID - [id number], CTA AAA, W/ JONATHAN.EXT.GZOVXK6845-27-02 14:26:00 [facility] : 1965 Sex: MAddendum BeginsREPORT STATUS:A Addendum: I have reviewed the report from Dr. Ace. I agree with the previously described non vascular findings.1. The left lower lobe findings have worsened including a cavitary primary nodule measuring up to 2.8 cm. The adjacent multiple nodules are stable. Recommend dedicated CT of the chest with contrast given the interval three months since the initial scan of 10/22/2020. A biopsy can also be considered once a dedicated CT of the chest has not performed. Underlying malignancy is difficult to exclude. Signed: Juventino Guzman MDReport Verified Date/Time: 02/11/2021 14:26:[address] angiography of the abdominal aorta and runoff, 05-Feb-21 INDICATION: This is a 55 years old male, with a diagnosis of claudication presents for assessment. TECHNIQUE: Spiral acquisition before and during during intravenous contrast administration using a Siemens CT scanner. Images were obtained before and during the dynamic passage of intravenous contrast material. Multi-planar 3-D volume-rendering reconstruction was performed using an independent workstation interactively by the interpreting physician as well as the 3-D specialist for optimal visualisation of the abdominal aorta, pelvic arteries, and its peripheral branches.Please refer to the contrast sheet scanned in the EPIC system for the amount and route of contrast given. This exam was performed according to our departmental dose- optimisation programme, which includes automated exposure control, adjustment of the mA and/or kV according to patient size and/or use ofiterative reconstruction technique. Dose modulation, iterative reconstruction, and/or weight based ad justment of the mA/kV was utilized to reduce the radiation dose to as low as reasonably achievable. FINDINGS: VASCULAR: Pacing leads identified in the right- sided cardiac chambers. The left ventricle is mildly enlarged. No mitral annular calcification is seen. The distal descending thoracic aorta is unremarkable. The abdominal aorta is remarkable for circumferential noncalcific atherosclerosis, and the thickness of the protruding atheroma, for example image 142 is up to eight and 9 mm in diameter. No luminal obstructive lesion is seen. No ectasia or aneurysmal dilation is noted. There is no evidence of acute aortic pathology, specifically, there is no dissection, intramural hematoma, or contained rupture. Quantitative dimensions of the abdominal aorta are as follows: 2.2 cm at the mesenteric segment; 2.1 cm at the renal segment,; and 2.3 cm at the aortic bifurcation. The coeliac axis, SMA are patent. Nonobstructive atherosclerosis is seen. Replaced right hepatic arteries identified, normal variant. The PATSY is filled retrogradely by surrounding collaterals with significant lesion identified proximally. Single left and right renal arteries are seen with nonobstructive calcification identified proximally. Single left and right renal veins are seen draining into the IVC. The common iliac, external iliac, common femoral arteries are patent. However, diffuse noncalcific atherosclerosis seen with scattered calcification identified. Minimum luminal diameter, for example at image 224 in the proximal left external iliac artery is 3.9 x 4.1 mm. Overall, no critical lesion is observed. The left internal iliac artery is patent. The ostium of the left SFA has substantial noncalcific atherosclerosis identified, and the patent lumen is 2.5 mm. Thereafter, remainder of the left SFA is seen to be patent,with a reference diameter of approximately 5 mm. There is scattered scattered cavitations identifiedin the distal left SFA. The left popliteal artery has calcific and noncalcific atherosclerosis identified, with probable mild lesion present. No critical obstructive lesion is noted. Calcific and noncalcific atherosclerosis is seen just above the left knee joint, at image 551, with minimum diameter of4.0 x 5.6 mm indicating no obstructive lesion present. The left profunda system is patent. The left tibioperoneal trunk is widely patent. The left anterior tibial artery is widely patent giving rise to the dorsalis pedis artery distally. The left posterior tibial artery is widely patent giving rise tothe plantar arch distally. The left peroneal artery is well seen down to level of the ankle. In the proximal right common iliac artery, mild dilation is seen measure up to 1.9 cm in diameter and no obstructive lesion is noted. More distally calcific and noncalcific atherosclerosis identified, extending into the right external iliac artery and the right common femoral artery. Minimal luminal diameter at the right external iliac artery, at image 235 is 4.5 mm and overall no critical obstructive lesionis present. The proximal right SFA, image 333 has noncalcific atherosclerosis identified with minimum luminal diameter of 2.5 to 3 mm, when compared to remainder of the right SFA, that measure 4.5 to 5mm. Remainder the right SFA has no significant obstructive lesion present. The right profunda systemis unremarkable. The right popliteal artery is patent, with focal calcification identified image 557with positive remodeling present. This is located above the right knee joint. Minimum luminal diameter is 4.1 x 3.1 mm suggesting no critical obstructive lesion is seen. Remainder of the right popliteal artery is unremarkable. In the right lower extremity, the right tibial fracture is unremarkable. The right anterior tibial artery and the right posterior tibial arteries are widely patent, giving riseto the dorsalis pedis and plantar arches distally, respectively. The right peroneal artery is patent. NON-VASCULAR: Lung bases are unremarkable. Bibasal pleural thickening is identified. An addendum will be dictated regarding the left lower lobe finding, at image 17, and there are also multiple nodules identified, with the larger one at image 33 measures 1 cm in size. In the abdomen, the liver and spleen appears unremarkable. The liver edge is smooth. No abnormal enhancing structure is identified. Small gallstones are seen in the gallbladder with no wall thickening identified. The adrenal glands are not enlarged. The pancreas appears unremarkable. No acute renal pathology is seen and no hydronephrosis or perirenal fluid collection is identified. Bowel is not well assessed by CT angiography as enteric contrast is not given. No obvious by dilation is identified. The appendix appears unremarkable. Small bilateral fat-containing inguinal hernia is seen. The prostate is unremarkable. The bladder hasno gross abnormality noted. No free air or free fluid is seen in the abdomen pelvis and no significant retroperitoneal adenopathy is present. No acute bony pathology is seen. CONCLUSIONS: 1. Diffuse circumferential atherosclerosis identified abdominal aorta, however, no obstructive lesion is seen. Thethickness of the protruding atheroma is patent 9 mm in thickness. No ectasia or aneurysmal dilation is identified. There is no evidence of acute aortic pathology, specifically, there is no dissection, intramural hematoma, or contained rupture. Quantitative dimension of the abdominal aorta are as noted. 2. There is calcific and noncalcific atherosclerosis present throughout the left and the right pelvic arteries, however, no critical lesion is seen. Prominence is noted in the right common iliac artery. 3. There is noncalcific atherosclerosis identified at the very proximal left SFA, with minimum luminal diameter of 2.5 mm at image 317 suggesting a 50% reduction in diameter. At the time of dictationit is uncertain which leg is symptomatic. Remainder of the left SFA and the left popliteal artery have no critical lesion identified. Similarly, in the right SFA, at image 333, a mild to moderate stenosis is identified, of uncertain hemodynamic significance. Remainder of the right SFA and the right popliteal artery has no critical obstructive lesion identified. Please tiny correlate clinically, if nee ded with duplex ultrasound scan regarding the hemodynamic significance of the left and right SFA. 4.Three-vessel runoff, bilaterally. 5. Other findings as described above, especially the left lower lobe findings and an addendum will be dictated thereafter if optimal recommendation. Similar finding isseen in the 2020 examination. Close follow-up is likely required. 6. An addendum will be dictated bythe Correctional Supply Supervisor Radiologist regarding the nonvascular findings. THE REPORT WILL ONLY BE CONSIDERED COMPLETE AFTER THE ADDENDUM HAS BEEN DICTATED. Signed: Pito Ace MDReport Verified Date/Time: 02/05/2021 17:35:26 -[id number] 16:11:00 Test Item Value Reference Range Interpretation Comments POC-CREATININE 1.7 mg/dL 0.6-1.3 H : TESTED AT [facility] ([facility]) (test 67[address] [facility] code = 1859) [place] [id number]: Relocation Commissioner/Techni cuco ID = [id number] for Halle Pederson POC-EGFR ([facility]) 42 mL/min/1.73M2 (test code = 1860) CT SOFT TISSUE NECK WO [id number] 20:57:31 No definite focal mass of the visualized aerodigestive tract. No pathologiccervical lymph nodes by imaging criteria. Right common carotid and leftproximal subclavian artery stents noting this study isnot tailored toassess the vasculature. Large left apical 3.5 cm cavitary pulmonary lesion with adjacent left upperlobe pulmonary nodules measuring up to 1.3 cm. Left hilarlymphadenopathy/conglomerate measuring 3.6 cm. Diagnostic considerationsinclude neoplastic and infectious processes. Recommend further evaluationwith contrast-enhanced CT of the chest. Preliminary Report Dictated by Resident: Saulo Araiza MD., have reviewed this study and agree with theabove report.EXAM: CTSOFT TISSUE NECK WO CONTRAST HISTORY: Ischemic optic neuropathy of right eye COMPARISON: None. TECHNIQUE: Noncontrast CT of the neck soft tissues obtained. Coronal andsagittal reconstructions are generated. FINDINGS: The nasopharynx, oropharynx, hypopharynx and larynx are patent withoutasymmetric softtissue density. The trachea and cervical esophagus areunremarkable. The visualized portions of the oral tongue and floor of mouth areunremarkable. The parotid and submandibular salivary glands are unremarkable. No stone isseen along the course of the Tyson or Calverton duct. The thyroid gland isunremarkable. No pathologically enlarged or morphologically suspicious cervical lymphnodes are present. Arterial stents of the right common carotid artery/carotid bulb and leftproximal subclavian artery are seen. A left apical 3.5 x 1.9 cm cavitary lesion with thick associated peripheralwall is seen with adjacent pleural thickening and additional septalthickening and irregular prominent nodules measuring upto 1.3 cm and leftupper lobe. Large left hilar lymphadenopathy/conglomerate ?measuring up to3.6 cm is noted. Reversal of the normal anatomic cervical lordosis is seen. Mild cervicalspine degenerative changes. Sternotomy wires. [facility], Radiant Results Inft User - 12/23/2020 3:58 PM CDT EXAM: CT SOFT TISSUE NECK WO CONTRASTHISTORY: Ischemic optic neuropathy of right eyeCOMPARISON: None.TECHNIQUE: Noncontrast CT of the neck soft tissues obtained. Coronal andsagittal reconstructions are generated.FINDINGS:The nasopharynx, oropharynx, hypopharynxand larynx are patent withoutasymmetric soft tissue density. The trachea and cervical esophagus areun remarkable.The visualized portions of the oral tongue and floor of mouth areunremarkable.The parotidand submandibular salivary glands are unremarkable. No stone isseen along the course of the Tyson or Alejandro duct. The thyroid gland isunremarkable.No pathologically enlarged or morphologically suspicious cervical lymphnodes are present.Arterial stents of the right common carotid artery/carotid bulband leftproximal subclavian artery are seen.A left apical 3.5 x 1.9 cm cavitary lesion with thick associated peripheralwall is seen with adjacent pleural thickening and additional septalthickening and irregular prominent nodules measuring up to 1.3 cm and leftupper lobe. Large left hilar lymphadenopathy/conglomerate measuring up to3.6 cm is noted.Reversal of the normal anatomic cervical lordosis is seen. Mild cervicalspine degenerative changes. Sternotomy wires.IMPRESSIONNo definite focal mass of the visualized aerodigestive tract. No pathologiccervical lymph nodes by imaging criteria. Right commoncarotid and leftproximal subclavian artery stents noting this study is not tailored toassess the vasculature. Large left apical 3.5 cm cavitary pulmonary lesion with adjacent left upperlobe pulmonary nodules measuring up to 1.3 cm. Left hilarlymphadenopathy/conglomerate measuring 3.6 cm. Diagnostic con siderationsinclude neoplastic and infectious processes. Recommend further evaluationwith contrast-enhanced CT of the chest.Preliminary Report Dictated by Resident: Saulo Davies MD., have reviewed this study and agree with theabove report.[facility] 2020-12-23 20:22:[address] headCT HEAD WO CONTRAST HISTORY: Male 55 years ischemic optic neuropathy of right IJ COMPARISON: None TECHNIQUE: Routine CT head without contrast FINDINGS: The ventricles and cerebral sulci are normal in caliber and configuration.No hydrocephalus, midline shift or pathological extra- axial fluidcollection is present. The basal cisterns are unremarkable. No acute intracranial hemorrhage or mass effect is present. The coffey-whitematter differentiation is preserved. No parenchymal attenuation abnormalityis present. The calvarium and skull base are unremarkable. The mastoid air cells andvisuali zed paranasal air sinuses are clear. [facility], Radiant Results Inft User - 12/23/2020 3:[address] HEAD WO CONTRASTHISTORY: Male 55 years ischemic optic neuropathy of right IJCOMPARISON: NoneTECHNIQUE: Routine CT head without contrastFINDINGS:The ventricles and cerebral sulci are normal in caliber and configuration.No hydrocephalus, midline shift or pathological extra-axial fluidcollection is present. The basal cisterns are unremarkable.No acute intracranial hemorrhage or mass effect is present. The coffey-whitematter differentiation is preserved. No parenchymal attenuation abnormalityis present.The calvarium and skull base are unremarkable. The mastoid air cells andvisualized paranasal air sinuses are clear.IMPRESSIONNormal CT headUnNocona General HospitalPOCT-GLUCOSE [id number] 07:37:00 Test Item Value Reference Range Interpretation Comments POC-GLUCOSE METER 316 mg/dL 70-110 H : TESTED A T [facility] 6720 (BEAKER) (test code = [place], 1538) [address]: Relocation Commissioner/Techni cuco ID = [id number] for NAZIA FISCHER BASIC METABOLIC [id number] 05:45:00 Test Item Value Reference Range Interpretation [...] 697) EGFR (BEAKER) (test 51 mL/min/1.73 ESTIMA GILMA GFR IS code = 1092) sq m NOT ACCURATE CREATININE CLEARANCE IN PREDICTING GLOMERULAR FILTRATION RATE . ESTIMATED GFR I S NOT APPLICABLE FOR DIALYSIS PATIEN TS. Relocation Commissioner ID - MALINI [facility] (HEMOGRAM ONLY)2020-11-12 04:34:00 Test Item Value Reference [...] WBC 0-0 (BEAKER) (test code = 413) [id number] 19:54:00 Test Item Value Reference Range Interpretation Comments ACTIVATED CLOTTING TIME 131 sec : 74 -137 seconds, (BEAKER) (test code = Baseli ne: TESTED AT 441) [address], [facility] 30: Relocation Commissioner/Techni cuco ID = [id number] for TANISHA VINSON SEANTON [id number] 17:26:00 Test Item Value Reference Range Interpretation Comments ACTIVATED CLOTTING TIME 169 sec : 74 -137 seconds, (BEAKER) (test code = Baseli ne: TESTED AT 441) [address], [facility] 30: Relocation Commissioner/Techni cuco ID = [id number] for CO NROD DUPLECHIAN (V), SONJA POCT-GLUCOSE [id number] 15:28:00 Test Item Value Reference Range Interpretation Comments POC-GLUCOSE METER 240 mg/dL 70-110 H : TESTED A T [place] [address] (BEAKER) (test code = [facility], 1538) [address]: Relocation Commissioner/Techni cuco ID = [id number] for MAHESH HUMBERTO AMADEO [id number] 14:05:00 Test Item Value Reference Range Interpretation Comments ACTIVATED CLOTTING TIME 318 sec : 74 -137 seconds, (BEAKER) (test code = Baseli ne: TESTED AT 441) [address], [facility] 30: Relocation Commissioner/Techni cuco ID = [id number] for MAXINE SUMNER CT, CTA [id number] 16:36:00Unlisted Reason for Exam - Click Yes and Enter Reason Below->YesUnlisted Reason for Exam->Abdominal aorta aneurysm [facility] CENTERName: MARGARITA NOONAN : 1965 Sex: MFINAL REPORT CTA of the abdominal aorta and pelvis RADIATION DOSE REDUCTION: This exam was performed according to the departmental dose- optimization program which includes automated exposure control, adjustment of the mA and/or kV according to patient size and/or use of iterative recon struction technique. Comparison: None Unlisted Reason for ExamAbdominal aorta aneurysm Technique: Multidetector CT scanner. Images were obtained during the dynamic passage of intravenous contrast material. 3D volume-rendering and multiplanar reconstructions were performed interactively by the medical technologist chemistry using an independent 3-D workstation. RADIATION DOSE REDUCTION:This exam was performed according to the departmental dose-optimization program which includes automated exposure control, adjustment of the mA and/or kV according to patient size and/or use of iterative reconstruction technique. Findings: Vascular:There is patchy coarse atherosclerotic calcification of the aorta and its branches, m ost pronounced in the region of the infrarenal segment. There is no acute aortic wall abnormality onnoncontrast images such as intramural hematoma. There is [...] 15.4 mm. It is ectatic but not aneu rysmal. The external, internal iliac arteries and the [...] 9 mm. There is another nodule that issituated more posteriorly series A2 image #13 that [...] common iliac artery is dilated but nonaneurysmal. Th ere is presence of multiple nodules in the left lung base as described above. Correlation with priorcross-sectional imaging is important. Absent that, consider a follow-up CT at 3 months. Cholelithiasis. Thank you for the opportunity to assist you in the care of this patient. Signed: Silvino Guillen MD Report Verified Date/Time: 10/22/2020 16:36:41 Reading Location: [facility] Diagnostic Imaging Reading Room - [address] POCT-GLUCOSE [id number] 07:24:00 Test Item Value Reference Range Interpretation Comments POC-GLUCOSE METER 405 mg/dL 70-110 HH : TESTED A T [facility] 6720 (BEAKER) (test code = [place], [address]38) [address]: Relocation Commissioner/Techni cuco ID = [id number] for CYNTHIA ROSEN BASIC METABOLIC [id number] 07:03:00 Test Item Value Reference Range Interpretation [...] 697) EGFR (BEAKER) (test 50 mL/min/1.73 ESTIMA GILMA GFR IS code = 1092) sq m NOT ACCURATE CREATININE CLEARANCE IN PREDICTING GLOMERULAR FILTRATION RATE . ESTIMATED GFR I S NOT APPLICABLE FOR DIALYSIS PATIEN TS. Relocation Commissioner ID - LACIE [facility] (HEMOGRAM ONLY)2020-09-25 06:42:00 Test Item Value Reference [...] 0-0 (BEAKER) (test code = 413) POCT-GLUCOSE [id number] 21:48:00 Test Item Value Reference Range Interpretation Comments POC-GLUCOSE METER 319 mg/dL 70-110 H : TESTED A T [facility] 6720 ([facility]) (test code = [facility], 1538) [address]: Relocation Commissioner/Techni cuco ID = [id number] for PH ILIP, VICTORINA [id number] 21:07:00 Test Item Value Reference Range Interpretation Comments ACTIVATED CLOTTING TIME 120 sec : 74 -137 seconds, (BEAKER) (test code = [facility] ne: TESTED AT 441) [facility] 6720 [facility], [address] 30: Relocation Commissioner/Techni cuco ID = [id number] for ALISSON SE, TINTU [id number] 18:58:00 Test Item Value Reference Range Interpretation Comments ACTIVATED CLOTTING TIME 153 sec : 74 -137 seconds, (BEAKER) (test code = Baseli ne: TESTED AT 441) [facility] 67[address] [facility], 7[address] 30: Relocation Commissioner/Techni cuco ID = [id number] for MA THEW, MINI POCT-GLUCOSE [id number] 17:00:00 Test Item Value Reference Range Interpretation Comments POC-GLUCOSE METER 209 mg/dL 70-110 H : TESTED A T [facility] 6720 (BEAKER) (test code = [facility] R [facility], 1538) [address]: Relocation Commissioner/Techni cuco ID = [id number] for CYNTHIA ROSEN POCT-GLUCOSE [id number] 14:53:00 Test Item Value Reference Range Interpretation Comments POC-GLUCOSE METER 200 mg/dL 70-110 H : [facility] ([facility] (test [facility] = [facility], 1538) [address]: Relocation Commissioner/Techni cuco ID = [id number] for CORY PAYAN [id number] 13:48:00 Test Item Value Reference Range Interpretation Comments ACTIVATED CLOTTING TIME 290 sec : 74 -137 seconds, (BEAKER) (test code = Baseli ne: TESTED AT 441) [facility] 67[address] [facility], 770 30: Relocation Commissioner/Techni cuco ID = [id number] for SHERYL MATA SARS-COV2/RT-PCR ([facility])2020-09-24 00:07:00 Test Item Value Reference Range Interpretation Comments SARS-COV2/RT-PCR (test Negative Not Detected, Negative, code = 8112617) See external report for linked test SARS-COV-[address] [facility] (test code = 0021527) Negative result for this test determines that [...] individuals suspected of COVID-19 by their healthcare provider.This test [...] justifying the authorization of the emergency use ofin vitro diagnostic tests for detection and/or diagnosis of COVID-19 is terminated under Section 564(b)(2) of the Act or the EUA is revoked under Section 564(g) of the Act.Testing was performed using the Payne SARS-CoV-2 assay.Fact Sheet for Healthcare Providers:https://www.[employer].CDC Software/kvng/RT_SAR T-MxH-0_BVY_Wqtj_Kmafc_59-112586.pdfFact Sheet for Healthcare Patients:https://www.Digital Chocolate/s al/JM_ZQXA-EpT-4_Twrmwbd_Miyz_Ymufi_OU_83-457987I4.pdfPerforming Laboratory:[facility] [place] [address] BASIC METABOLIC [id number] 10:55:00 Test Item Value Reference Range Interpretation [...] 697) EGFR (BEAKER) (test 48 mL/min/1.73 ESTIMA GILMA GFR IS code = 1092) sq m NOT ACCURATE CREATININE CLEARANCE IN PREDICTING GLOMERULAR FILTRATION RATE . ESTIMATED GFR I S NOT APPLICABLE FOR DIALYSIS PATIEN TS. Relocation Commissioner ID - NANY [facility] W/PLT COUNT & AUTO [id number] 10:37:00 Test Item Value Reference Range Interpretation [...] 0-1 PERCENT (BEAKER) (test code = 2801) ELECTROCARDIOGRAM [id number] 22:12:26Result approved by Denice Jean MD on 09/01/[id number] 14:51:00 Test Item Value Reference Range Interpretation Comments SURG (test code = SURG) RUN DATE: 08/28/20 [facility] PAGE 1 RUN TIME: 1451 Specimen Inquiry RUN USER: INTERFACE PATIENT: [facility]AN [facility] [id number] LOC: DoreenMaryMONIK #: [id number] AGE/SX: 55/M ROOM: RE08/27/20REG DR: Tiff Estrada MD : 63 BED: DIS: STATUS: [facility] [place] [place] TLOC: SPEC #: [id number] RECD: 08/27/20 STATUS: TAYLOR MARI #: [id number] SUSHMA: 08/27/[address]: Tiff Estrada MD ENTERED: 08/27/20 SP TYPE: SURG OTHR DR: Sybil Moody ORDERED: SURG PATH LVL 4 COPIES TO: Sybil Moody [address] [address] Tiff Estrada MD [address] [place] [address] HISTOLOGY: TISSUE ID BLK PCS VERONICA LEV PROCEDURE DISPOSITION ____ ___ ___ ___ STOMACH, NOS A 1 2 PROCEDURES: SURG PATH LVL 4 (08/27/20) TISSUES: A. STOMACH, NOS - GASTRIC BODY AND GASTRIC BIOPSY CLINICAL HISTORY DUODENAL MASS - K31.89 CPT CODES CPT CODE(S): 88571 , , , , , , FINAL DIAGNOSIS Stomach, body, biopsy: MILD CHRONIC GASTRITIS NEGATIVE FOR INTESTINAL METAPLASIA, DYSPLASIA, OR MALIGNANCY NEGATIVE FOR HELICOBACTER PYLORI ORGANISMS CONTINUED ON NEXT PAGE RUN DATE: 08/28/20 [facility] PAGE 2 RUN TIME: 1451 Specimen Inquiry RUN USER: INTERFACE SPEC #: [facility]:[id number] PATIENT: MARGARITA NOONAN #[id number] (Continued) GROSS DESCRIPTION Gastric body and gastric biopsy. Received in formalin are two ruvalcaba tissue fragments, 0.2 and 0.5 cm, all as A. ba/nr Grossing performed at [facility] Pathology, [address] [place] [address], [address], [place] [address]. Paramedic Rn: Quentin Infante M.D. MICROSCOPIC DESCRIPTION Gastric body and gastric biopsy. Sections demonstrate gastric mucosa with mild chronic inflammation. No dysplasia or malignancy is identified. No evidence of intestinal metaplasia or Helicobacter pylori organisms is seen. Signed SIGNATURE ON FILE JoellenTez duncanblaire Singh 08/28/20 1451 END OF REPORT GLUCOSE BEDSIDE [id number] 06:24:00 Test Item Value Reference Range Interpretation Comments GLUCOSE BEDSIDE TESTING (test code 138 mg/dL 70-110 H = GLUBED) COVID 19 INHOUSE [id number] 13:07:00 Test Item Value Reference Range Interpretation Comments COVID 19 INHOUSE AG NEGATIVE Negative Per manu facturer, (test code = negative result s should [id number]) be treated aspr esumptive and, if inconsi stent with clinical signs andsymptoms or necessary for patient man agement, should betested with an alternative mol ecular assay. Negative resultsdo not preclude SA RS-CoV-2 infection and s hould not be usedas the s ole basis for patient man agement decisions. Nega tive results should be considered in t he context of apatient's r ecent exposures, hist ory, presence of cli nicalsigns and symptoms co nsistent with COVID-19. Spec Comments: PRE OPBASIC METABOLIC [id number] 12:59:00 Test Item Value Reference Range Interpretation [...] CA) 9.0 MG/DL 8.5-10.1 N CBC W/AUTO [id number] 12:52:00 Test Item Value Reference Range Interpretation [...] (test code NO DIFF/SCN CRITERIA = MDIFF) [id number] 14:47:00 Test Item Value Reference Range Interpretation Comments SURG (test code = SURG) --------RUN DATE: 06/11/20 [facility] PAGE 1 RUN TIME: 1447 Specimen Inquiry RUN USER: INTERFACE --------PATIENT: MARGARITA NOONAN LOC: ANT U #: [id number] AGE/SX: 55/M ROOM: RE06/09/20REG DR: Bubba Taylor MD : 63 BED: DIS: STATUS: [facility] [place] [place] TLOC: -------- SPEC #: [id number] RECD: 06/09/20 STATUS: TAYLOR REQ #: [id number] SUSHMA: 06/09/[address]: Bubba Taylor MD ENTERED: 06/09/20 SP TYPE: SURG OTHR DR: Sybil Moody ORDERED: SURG PATH LVL 09/20 COPIES TO: Sybil Moody [address] [address] Bubba Taylor MD [address] [place] [id number] HISTOLOGY: TISSUE ID BLK PCS VERONICA LEV PROCEDURE DISPOSITION ____ ___ ___ ___ DUODENUM, NOS A 1 2 STOMACH, NOS B 1 2 ESOPHAGUS, NOS C 1 2 PROCEDURES: SURG PATH LVL 4 (06/09/20-1051) TISSUES: A. DUODENUM, NOS - DUODENUM MASS BIOPSY B. STOMACH, NOS - ANTRUM AND BODY BIOPSY C. ESOPHAGUS, NOS - DISTAL ESOPHAGUS BIOPSY CLINICAL HISTORY IMAGING OF GASTROINTESTINAL TRACT - R93.3 CPT CODES CPT CODE(S): 22161K6 , , , , , , FINAL DIAGNOSIS A. Small intestine, duodenum, biopsy: DUODENUM WITH FERNANDO'S GLAND HYPERPLASIA B. Stomach, antrum and body, biopsy: MILD CHRONIC GASTRITIS CONTINUED ON NEXT PAGE --------RUN DATE: 06/11/20 [facility] PAGE 2 RUN TIME: 1447 Specimen Inquiry RUN USER: INTERFACE --------SPEC #: [facility]:[id number] PATIENT: MARGARITA NOONAN #[id number] (Continued) FINAL DIAGNOSIS (Continued) NEGATIVE FOR INTESTINAL [...] all as C. bk/nr Grossing performed at [facility] Pathology, [address] [place] [address], [address], [place] [address]. Paramedic Rn: Quentin Infante M.D. MICROSCOPIC DESCRIPTION A. Duodenal [...] intestinal metaplasia is seen. Signed SIGNATURE ON ANNA Amadeo Poe Samantha 06/11/20 1447 -------- END OF REPORT GLUCOSE BEDSIDE [id number] 07:24:00 Test Item Value Reference Range Interpretation Comments GLUCOSE BEDSIDE TESTING (test code 218 mg/dL 70-110 H = GLUBED) COVID 19 INHOUSE [id number] 10:51:00 Test Item Value Reference Range Interpretation Comments COVID 19 INHOUSE AG NEGATIVE Negative Per manu facturer, (test code = negative result s should [id number]) be treated aspr esumptive and, if inconsi stent with clinical signs andsymptoms or necessary for patient man agement, should betested with an alternative mol ecular assay. Negative resultsdo not preclude SA RS-CoV-2 infection and s hould not be usedas the s ole basis for patient man agement decisions. Nega tive results should be considered in t he context of apatient's r ecent exposures, hist ory, presence of cli nicalsigns and symptoms co nsistent with COVID-19. BASIC METABOLIC [id number] 10:41:00 Test Item Value Reference Range Interpretation [...] CA) 9.2 MG/DL 8.5-10.1 N CBC W/AUTO [id number] 10:25:00 Test Item Value Reference Range Interpretation [...] (test code NO DIFF/SCN CRITERIA = MDIFF) [id number] 13:21:00 Test Item Value Reference Range Interpretation Comments GLUBED (test code = 279 MG/DL 70-110 H Performe d by certified GLUBED) buggy operator at [facility]2020-09-30 11:07:00 Test Item Value Reference Range Interpretation Comments GLUBED (test code = 324 MG/DL 70-110 H Performe d by certified GLUBED) buggy operator at [facility] [id number] 08:35:00 Test Item Value Reference Range Interpretation Comments GLUBED (test code = 339 MG/DL 70-110 H Performe d by certified GLUBED) buggy operator at [facility] - XR CHEST 1 [id number] 05:51:00 FAX: Rudy Chilel [phone] [place]: St: ADM FAX: Deshaun Frost NP [phone] --- Name: MARGARITA NOONAN [place] : 1965 Age/S: 54/M [address] [place] [address] Unit #: [id number] Loc: G.5517 [place] [address] Phys: Deshaun Frost NP Acct: [id number] Dis Date: Status: ADM IN PHONE #: Exam Date: 03/19/2020 3381 FAX #: [phone] Reason: Post PM/ICD EXAMS: CPT CODE: [id number] XR CHEST 1 V 11142 Chest x-ray 1 view History: Post pacemaker/ICD Comparison: Plain film 03/18/2020, 03/14/2020 Findings: Mediastinum: The cardiomediastinal contours are unremarkable. Lungs and pleuralspaces: Left suprahilar and left basilar opacities are [...] and basilar opacities are unchanged. Asymmetrical left apical pleural thickening is redemonstrated, similar to the preprocedure film dated 03/14/2020. Comparison to older films or follow-up CT is recommended to document stability and exclude underlying mass. AICD. Post sternotomy changes. at 5469 Reported and signed by: Danielle Adame M.D. PAGE 1 Signed Report (CONTINUED) FAX: Rudy Chilel [phone] [place]: St: [facility] FAX: Deshaun Frost NP [phone] Name: AMITADIANMaxMARGARITA [facility] : 1965 Age/S: 54/M [address] [place], [place] [address]vd Unit #: [id number] Loc: G.5517 [place] [address] Phys: Deshaun Frost NP Acct: [id number] Dis Date: Status: ADM IN PHONE #: [phone] Exam Date: 03/19/20541 FAX #: [phone] Reason: Post PM/ICD EXAMS: CPT CODE: [id number] XR CHEST 1 V 28306 (Continued) CC: Rudy Vargas MD; Deshaun Frost NP Technologist: Marin Mejia RT(R); RT Ivana(R) Trnscrd Date/Time/By: 03/19/2020 (0520) : By: [email or web address] Orig Print D/T: S: 03/19/2020 (7701) PAGE 2 Signed [id number] 03:52:00 Test Item Value Reference Range Interpretation Comments GLUBED (test code = 274 MG/DL 70-110 H Performe d by certified GLUBED) buggy operator at [facility] [id number] 22:40:00 Test Item Value Reference Range Interpretation Comments GLUBED (test code = 418 MG/DL 70-110 H Performe d by certified GLUBED) buggy operator at [facility] [id number] 22:39:00 Test Item Value Reference Range Interpretation Comments GLUBED (test code = 362 MG/DL 70-110 H Performe d by certified GLUBED) buggy operator at [facility] - XR CHEST 1 [id number] 16:35:00 FAX: Rudy Chilel [phone] [place]: St: ADM FAX: Deshaun Frost NP [phone] --- Name: MARGARITA NOONAN [place] : 1965 Age/S: 54/M [address] [place] [address] Unit #: [id number] Loc: [place] [address] Phys: Deshaun Frost NP Acct: [id number] Dis Date: Status: ADM IN PHONE #: Exam Date: 03/18/2020 1633 FAX #: [phone] Reason: Post PM/ICD EXAMS: CPT CODE: [id number] XR CHEST 1 V 95324 Portable single view AP chest INDICATION: Post [...] of volume loss in the left lung is seen and some of these findings if not all could be chronic. The right lung is well inflated and clear. The costophrenic angles are sharp. Sternotomy wires are seen. IMPRESSION: Left chest transvenous pacing device placement. Otherwise, stable chest. SL: DENISE at 1635 Reported and signed by: Felipe Meyers M.D. CC: Rudy Vargas MD; Deshaun Frost NP Technologist: Erika Meyers RT(R) Trnscrd Date/Time/By: 03/18/2020 (9863) : By: [email or web address] Orig Print D/T: S: 03/18/2020 (2714) PAGE 1 Signed ReportNovel Coronavirus 2019 [id number] 00:29:00 Test Item Value Reference Range Interpretation [...] for the identification of SARS-CoV-2 RNA usingthe Payne M2000 Sy stem under the FDA Emergen cy AbbeyAuthoriareli n. The testing is perf ormed by tereso salcido in the procedures for the Payne M2000 molecular diagnostic SARS-CoV-2 anila pascal in vitro. - XR CHEST 2 [id number] 11:03:00 FAX: Rudy Chilel [phone] [place]: St: PRE Name: MARGARITA NOONAN [facility] : 1965 Age/S:54/M [address] [place] [address] Unit #: [id number] Loc: [place] [address] Phys: Rudy Vargas MD Acct: [id number] Dis Date: Status: PRE [facility] [place] [place] PHONE #: [phone] Exam Date: 03/14/2020 1030 FAX #: [phone] Reason: PREOP EXAMS: CPT CODE: [id number] XR CHEST 2 V 97934 CLINICAL HISTORY: PREOP COMPARISON: NONE PA and lateral films of the chest demonstrate sternotomy sutures as well as postsurgical changes in the left hemithorax. Vascular stent in the neck on the right side is also present.Heart size is normal. Right lung appears clear. There is evidence of interstitial opacities in the left lung. In addition, there are confluent patchy opacities present at the left lung base. This may represent pneumonia or localized edema in this location. Clinical correlation and follow-up examination to clearing is recommended to exclude underlying pulmonary nodule. Pleural reaction is also presenton the left side probably from prior surgery. [...] right 9th rib, indeterminate age. at 1103 Reported and signed by: Ajay Werner M.D. CC: Rudy Hematpomata CRISTINA Technologist: Christina Montague RT(R)(CT) Trnscrd Date/Time/By: 03/14/2020 (1103) : By: Catie Orig Print D/T: S: 03/14/2020 (1106) PAGE 1 Signed ReportBASIC METABOLIC [id number] 10:21:00 Test Item Value Reference Range Interpretation [...] = 9.6 mg/dL 8.0-10.5 N CA) PROTHROMBIN [id number] 10:06:00 Test Item Value Reference Range Interpretation Comments PROTHROMBIN TIME 10.5 SECONDS 9.3-12.9 N PATIENT (test code = PTP) INTERNATIONAL NORMAL 1.0 0.8-1.2 N TARGET INR BY RATIO (test code = INDICATIO N Indication INR) INR1. Prophylax is of venous thrombos is 2.0 - 3.0 (orthoped ic surgery), Proph ylaxis of venous throm bosis (other than hig h-risk surgery), Treat ment of Deep Vein Thrombosis/Pulm onary Embolism, Preve ntion of systemic emb olism - Tissue heart va lves, Acute Myocardia l Infarction (to prevent systemic emboli sm), Valvular heart disease, Atrial Fibrillation, Bileaflet mecha nical valve in aortic position.2. Mec hanical prosthetic valv es (high risk), 2. 5 - 3.5 Presence of Lup us Anticoagulant o r Antiphospholipi d Antibodies, Pre vention of systemic emb olism - Acute Myocardia l Infarction (to prevent recurrent infar ct). CBC W/AUTO [id number] 09:59:00 Test Item Value Reference Range Interpretation [...] = MDIFF) SARS-COV2/RT-PCR ([facility])2020-01-03 13:05:00 Test Item Value Reference Range Interpretation Comments SARS-COV2/RT-PCR (test code = Negative Not Detected, Negative [id number]) SARS-COV-2 PERFORMING LAB [facility] (test code = 1218892) Negative result for this test determines that [...] individuals suspected of COVID-19 by their healthcare provider.This test [...] justifying the authorization of the emergency use ofin vitro diagnostic tests for detection and/or diagnosis of COVID-19 is terminated under Section 564(b)(2) of the Act or the EUA is revoked under Section 564(g) of the Act.Fact Sheet for Healthcare Prov iders:https://www.[employer]Connect/sites/default/files/product/documents/Fact_Sheet_HC _Xnhirmbgy_Pvcn_IUPZ-QjW-6.pdfFact Sheet for Healthcare Patients:https://www.[employer]Connect/sites/default/files/product/docume nts/Wheu_Cmlee_Prfwbaqk_Iwhv_TFEB-RgJ-4.pdfPerforming Laboratory:[place] [address] [address], [place] [address]WIAGTTIT AGGREGATION: FUNCTION [id number] 09:51:00 Test Item Value Reference Range Interpretation Comments WEAK ADP 7 % 60-91 L RESULT([facility]) (test code = 2135) PLATELET FUNCTION 0-39% indicates marked SCREEN INTERP platelet dysfunction ([facility]) (test code = 2173) [id number] Jannette Bryant MD ([facility]) (test code = (electronic signature) 2622) PLATELET COUNT AGG 198 K/CU MM 150-450 (AKER) (test code = 2656) POCT-GLUCOSE [id number] 09:13:00 Test Item Value Reference Range Interpretation Comments POC-GLUCOSE METER 368 mg/dL 70-110 H TESTED AT [place] [address] ([facility]) (test code = [place] [facility] 1535) [address] BASIC METABOLIC [id number] 04:10:00 Test Item Value Reference Range Interpretation [...] 697) EGFR (BEAKER) (test 79 mL/min/1.73 ESTIMA GILMA GFR IS code = 1092) sq m [...] CORPUSCULAR HEMOGLOBIN CONC 32.1 GM/DL 32.3-36.5 L (BEAKER) (test code = 752) RED CELL DISTRIBUTION WIDTH 14.6 % 11.6-14.4 H (BEAKER) (test code = 412) PLATELET COUNT (BEAKER) (test 194 K/CU MM 150-450 code = 756) MEAN PLATELET VOLUME (BEAKER) 11.4 fL 9.4-12.4 (test code = 754) NUCLEATED RED BLOOD CELLS 0 /100 WBC 0-0 (BEAKER) (test code = 413) POCT-GLUCOSE [id number] 22:59:00 Test Item Value Reference Range Interpretation Comments POC-GLUCOSE METER 281 mg/dL 70-110 H TESTED AT [place] [address] ([facility]) (test code = [place] [address]38) [address] POCT-GLUCOSE [id number] 17:19:00 Test Item Value Reference Range Interpretation Comments POC-GLUCOSE METER 398 mg/dL 70-110 H TESTED AT [place] [address] ([facility]) (test code = [place] 1538) [address] [id number] 15:41:00 Test Item Value Reference Range Interpretation Comments ACTIVATED CLOTTING TIME 131 sec TEST ED AT [place] [address] ([facility]) (test code = [place] [address]) [address] [id number] 14:07:00 Test Item Value Reference Range Interpretation Comments ACTIVATED CLOTTING TIME 142 sec TEST ED AT [place] [address] ([facility]) (test code = [place] [address]) [address] [id number] 09:52:00 Test Item Value Reference Range Interpretation Comments ACTIVATED CLOTTING TIME 362 sec TEST ED AT [place] [address] ([facility]) (test code = [place] [address]) [address] POCT-GLUCOSE [id number] 07:42:00 Test Item Value Reference Range Interpretation Comments POC-GLUCOSE METER 196 mg/dL 70-110 H TESTED AT [place] [address] ([facility]) (test code = [place] 1538) [address] MR, MRA, BRAIN, [id number] 13:28:00FINAL REPORT MRA head, arch, great vessels, and neck CLINICAL HISTORY: RIGHT CAROTID STENOSIS TECHNIQUE: 2-D and 3-D dowe-ci-mfpgij and postcontrast MRA of the head, arch, great vessels, and neck was provided with maximal intensity projection 3-D reconstructions of the arterial vasculature. COMPARISON: None FINDINGS: There is no evidence for a ione of Rudolph proximal branch vessel occlusion. There is a right posterior communicating artery. No aneurysms are seen. There is long s egment narrowing of the proximal right internal carotid [...] cervical vertebral artery. No evidence for a ione of Rudolph proximal branch vessel occlusion. Signed: Mya Mendoza MDReport Verified Date/Time: 12/01/2017 13:28:07 Reading Location: [address] Consult Reading Room MR, MRA, NECK, WITH 2017-12-01 13:28:00FINAL REPORT MRA head, arch, great vessels, and neck CLINICAL HISTORY: RIGHT CAROTID STENOSIS TECHNIQUE: 2-D and 3- D fxwv-ir-ubnmmx and postcontrast MRA of the head, arch, great vessels, and neck was provided with maximal intensity projection 3-D reconstructions of the arterial vasculature. COMPARISON: None FINDINGS: There is no evidence for a ione of Rudolph proximal branch vessel occlusion. There [...] cervical vertebral artery. No evidence for a ione of Rudolph proximal branch vessel occlusion. Signed: Mya Mendoza MDReport Verified Date/Time: 12/01/2017 13:28:07 Reading Location: [facility] C0[facility] Consult Reading Room [id number] 10:49:00 Test Item Value Reference Range Interpretation Comments POC-CREATININE 0.9 mg/dL 0.6-1.3 [facility] (test 2457 [facility] code = 1859) [place] [address] POC-EGFR 88 mL/min/1.73M2 (BEAKER) (test code = 1860) POCT-GLUCOSE [id number] 11:54:00 Test Item Value Reference Range Interpretation Comments POC-GLUCOSE METER 297 mg/dL 70-110 H TESTED AT [facility] 6720 (BEAKER) (test code = [place] [facility] 1538) [address] POCT-GLUCOSE [id number] 08:49:00 Test Item Value Reference Range Interpretation Comments POC-GLUCOSE METER 250 mg/dL 70-110 H TESTED AT [facility] 6720 (BEAKER) (test code = [place] [facility] 1538) [address] CBC (HEMOGRAM ONLY)2016-11-08 07:15:00 Test Item Value Reference Range Interpretation Comments WHITE BLOOD CELL COUNT (BEAKER) 7.3 K/ L 4.0-10.0 (test code = 775) RED BLOOD CELL COUNT (BEAKER) 2.67 M/ L 4.20-5.80 L (test code = 761) HEMOGLOBIN (BEAKER) (test code = 8.5 GM/DL 13.0-16.8 L 410) HEMATOCRIT (BEAKER) (test code = 24.8 % 40.0-50.0 L [...] WBC 0-0 (BEAKER) (test code = 413) [id number] 06:58:00 Test Item Value Reference Range Interpretation Comments MAGNESIUM (BEAKER) (test code = 2.1 mg/dL 1.6-2.6 627) BASIC METABOLIC [id number] 06:58:00 Test Item Value Reference Range Interpretation [...] 697) EGFR (BEAKER) (test 97 mL/min/1.73 ESTIMA GILMA GFR IS code = 1092) sq m NOT ACCURATE CREATININE CLEARANCE IN PREDICTING GLOMERULAR FILTRATION RATE . ESTIMATED GFR I S NOT APPLICABLE FOR DIALYSIS PATIEN TS. POCT-GLUCOSE [id number] 21:04:00 Test Item Value Reference Range Interpretation Comments POC-GLUCOSE METER 166 mg/dL 70-110 H TESTED AT [place] [address] ([facility]) (test code = [facility] 1538) [address] POCT-GLUCOSE [id number] 17:37:00 Test Item Value Reference Range Interpretation Comments POC-GLUCOSE METER 153 mg/dL 70-110 H TESTED AT [place] [address] ([facility]) (test code = [facility] 1538) [address] POCT-GLUCOSE [id number] 17:04:00 Test Item Value Reference Range Interpretation Comments POC-GLUCOSE METER 106 mg/dL 70-110 TESTED AT [place] [address] ([facility]) (test code = [facility] 1538) [address] POCT-GLUCOSE [id number] 15:06:00 Test Item Value Reference Range Interpretation Comments POC-GLUCOSE METER 76 mg/dL 70-110 TESTED AT [place] [address] ([facility]) (test code = [facility] [address] 1538) POCT-GLUCOSE [id number] 12:32:00 Test Item Value Reference Range Interpretation Comments POC-GLUCOSE METER 156 mg/dL 70-110 H TESTED AT [facility] 6720 (BEAKER) (test code = [place] [facility] 1538) [address] POCT-GLUCOSE [id number] 08:10:00 Test Item Value Reference Range Interpretation Comments POC-GLUCOSE METER 153 mg/dL 70-110 H TESTED AT [facility] 6720 (BEAKER) (test code = [place] [facility] 1538) [address] URINALYSIS W/ [id number] 07:06:00 Test Item Value Reference Range Interpretation [...] = 516) SOURCE(BEAKER) (test code = 2795) [id number] 04:51:00 Test Item Value Reference Range Interpretation Comments MAGNESIUM (BEAKER) (test code = 1.9 mg/dL 1.6-2.6 627) BASIC METABOLIC [id number] 04:51:00 Test Item Value Reference Range Interpretation [...] 753) MEAN CORPUSCULAR HEMOGLOBIN 31.4 pg 27.0-33.0 (BEAKER) (test code = 751) MEAN CORPUSCULAR HEMOGLOBIN CONC 33.9 GM/DL 32.0-36.0 (BEAKER) (test code = 752) RED CELL DISTRIBUTION WIDTH 14.5 % 10.3-14.2 H (BEAKER) (test code = 412) PLATELET COUNT (BEAKER) (test 236 K/CU MM 150-430 code = 756) MEAN PLATELET VOLUME (BEAKER) 7.3 fL 6.5-10.5 (test code = 754) NUCLEATED RED BLOOD CELLS 0 /100 WBC 0-0 (BEAKER) (test code = 413) 0.00POCT-GLUCOSE [id number] 21:36:00 Test Item Value Reference Range Interpretation Comments POC-GLUCOSE METER 256 mg/dL 70-110 H TESTED AT [place] [address] ([facility]) (test code = [place] [facility] 1538) [address] POCT-GLUCOSE [id number] 18:23:00 Test Item Value Reference Range Interpretation Comments POC-GLUCOSE METER 137 mg/dL 70-110 H TESTED AT [place] [address] ([facility]) (test code = [facility] 1538) [address] POCT-GLUCOSE [id number] 17:09:00 Test Item Value Reference Range Interpretation Comments POC-GLUCOSE METER 120 mg/dL 70-110 H TESTED AT [place] [address] ([facility]) (test code = [facility] 1538) [address]444 POCT-GLUCOSE [id number] 12:21:00 Test Item Value Reference Range Interpretation Comments POC-GLUCOSE METER 129 mg/dL 70-110 H TESTED AT [place] [address] ([facility]) (test code = [facility] 1538) [address] CBC (HEMOGRAM ONLY)2016-11-06 08:00:00 Test Item Value Reference Range Interpretation Comments WHITE BLOOD CELL COUNT (BEAKER) 6.2 K/ L 4.0-10.0 (test code = 775) RED BLOOD CELL COUNT (AKER) 2.40 M/ L 4.20-5.80 L (test code = 761) HEMOGLOBIN (BEAKER) (test code = 7.2 GM/DL 13.0-16.8 L [...] 0-0 (BEAKER) (test code = 413) 0.00POCT-GLUCOSE [id number] 07:49:00 Test Item Value Reference Range Interpretation Comments POC-GLUCOSE METER 241 mg/dL 70-110 H TESTED AT [facility] 6720 ([facility]) (test code = [place] 1538) [address] [id number] 06:49:00 Test Item Value Reference Range Interpretation Comments MAGNESIUM (BEAKER) (test code = 2.0 mg/dL 1.6-2.6 627) BASIC METABOLIC [id number] 06:49:00 Test Item Value Reference Range Interpretation [...] NOT APPLICABLE FOR DIALYSIS PATIEN TS. POCT-GLUCOSE [id number] 16:44:00 Test Item Value Reference Range Interpretation Comments POC-GLUCOSE METER 144 mg/dL 70-110 H TESTED AT [facility] 6720 (BEAKER) (test code = [place] 1538) [address] POCT-GLUCOSE [id number] 15:34:00 Test Item Value Reference Range Interpretation Comments POC-GLUCOSE METER 70 mg/dL 70-110 TESTED AT [place] [address] (BEAKER) (test code = [facility] [address] 1538) POCT-GLUCOSE [id number] 15:00:00 Test Item Value Reference Range Interpretation Comments POC-GLUCOSE METER 49 mg/dL 70-110 L TESTED AT [facility] 6720 (BEAKER) (test code = [facility] [address] 1538) POCT-GLUCOSE [id number] 13:01:00 Test Item Value Reference Range Interpretation Comments POC-GLUCOSE METER 202 mg/dL 70-110 H TESTED AT [place] [address] (BEAKER) (test code = [facility] 1538) [address] POCT-GLUCOSE [id number] 08:35:00 Test Item Value Reference Range Interpretation Comments POC-GLUCOSE METER 194 mg/dL 70-110 H TESTED AT [place] [address] (BEAKER) (test code = [facility] 1538) [address] [id number] 04:08:00 Test Item Value Reference Range Interpretation Comments MAGNESIUM (BEAKER) (test code = 1.9 mg/dL 1.6-2.6 627) BASIC METABOLIC [id number] 04:08:00 Test Item Value Reference Range Interpretation [...] PATIEN TS. CBC W/PLT COUNT & AUTO [id number] 04:05:00 Test Item Value Reference Range Interpretation [...] L 0.00-0.20 (test code = 417) 0.00POCT-GLUCOSE [id number] 21:29:00 Test Item Value Reference Range Interpretation Comments POC-GLUCOSE METER 140 mg/dL 70-110 H TESTED AT [facility] 6720 ([facility]) (test code = [place] Lopez [facility] 1538) 12054 POCT-GLUCOSE [id number] 17:57:00 Test Item Value Reference Range Interpretation Comments POC-GLUCOSE METER 237 mg/dL 70-110 H TESTED AT [place] [address] ([facility]) (test code = [place] [facility] 1538) 77[address] TISSUE [id number] 15:18:00Surgical Pathology Report Case: [id number] Authorizing Provider: Braulio Hurley MD Collected: 11/01/2016 1102 Ordering Location: [facility] Received: 11/01/2016 1336 PERIOPERATIVE SERVICES Pathologist: Ian Wang MD Specimen: Plaque, RCA PLAQUE HEART, CORONARY ARTERY, RIGHT, ATHERECTOMY:CALCIFIC ATHEROSCLEROTIC PLAQUE [id number]; [id number] plaqueThe specimen is received in saline labeled with the patient's information labeled "RCA plaque" and consists of a calcified tubular-shaped segment of tissue measuring 10.5 cm in length x 0.4 cm in diameter. Representatively submitted A1 for decalcification. CG/plPerformedPOCT-GLUCOSE [id number] 12:12:00 Test Item Value Reference Range Interpretation Comments POC-GLUCOSE METER 90 mg/dL 70-110 TESTED AT [place] [address] ([facility]) (test code = [place] [facility] [address] 1538) POCT-GLUCOSE [id number] 08:56:00 Test Item Value Reference Range Interpretation Comments POC-GLUCOSE METER 215 mg/dL 70-110 H TESTED AT [facility] 6720 ([facility]) (test code = [place] [facility] 1538) [address] [id number] 06:16:00 Test Item Value Reference Range Interpretation Comments MAGNESIUM ([facility]) (test code = 2.1 mg/dL 1.6-2.6 627) BASIC METABOLIC [id number] 06:16:00 Test Item Value Reference Range Interpretation Comments SODIUM ([facility]) 136 meq/L 136-145 (test code = 381) [...] 697) EGFR (BEAKER) (test 90 mL/min/1.73 ESTIMA GILMA GFR IS code = 1092) sq m NOT ACCURATE CREATININE CLEARANCE IN PREDICTING GLOMERULAR FILTRATION RATE . ESTIMATED GFR I S NOT APPLICABLE FOR DIALYSIS PATIEN TS. CBC W/PLT COUNT & AUTO [id number] 05:46:00 Test Item Value Reference Range Interpretation [...] L 0.00-0.20 (test code = 417) 0.00POCT-GLUCOSE [id number] 05:03:00 Test Item Value Reference Range Interpretation Comments POC-GLUCOSE METER 142 mg/dL 70-110 H TESTED AT [place] [address] ([facility]) (test code = [place] [facility] 1538) [address] POCT-GLUCOSE [id number] 20:57:00 Test Item Value Reference Range Interpretation Comments POC-GLUCOSE METER 256 mg/dL 70-110 H TESTED AT [place] [address] ([facility]) (test code = [place] [facility] 1538) [address]45 POCT-GLUCOSE [id number] 18:11:00 Test Item Value Reference Range Interpretation Comments POC-GLUCOSE METER 243 mg/dL 70-110 H TESTED AT [place] [address] ([facility]) (test code = [place] [facility] 1538) 12065 POCT-GLUCOSE [id number] 11:42:00 Test Item Value Reference Range Interpretation Comments POC-GLUCOSE METER 158 mg/dL 70-110 H TESTED AT [place] [address] ([facility]) (test code = [place] 1538) [address] POCT-GLUCOSE [id number] 09:13:00 Test Item Value Reference Range Interpretation Comments POC-GLUCOSE METER 163 mg/dL 70-110 H TESTED AT [facility] 67 (BEAKER) (test code = [place] 1538) [address] POCT-GLUCOSE [id number] 09:13:00 Test Item Value Reference Range Interpretation Comments POC-GLUCOSE METER 110 mg/dL 70-110 TESTED AT [place] [address] (BEAKER) (test code = [place] 1538) [address] POCT-GLUCOSE [id number] 06:04:00 Test Item Value Reference Range Interpretation Comments POC-GLUCOSE METER 131 mg/dL 70-110 H TESTED AT [place] [address] (BEAKER) (test code = [place] Lopez [facility] 1538) 98115 [id number] 04:25:00 Test Item Value Reference Range Interpretation Comments MAGNESIUM (BEAKER) (test code = 2.3 mg/dL 1.6-2.6 627) BASIC METABOLIC [id number] 04:25:00 Test Item Value Reference Range Interpretation [...] 697) EGFR (BEAKER) (test 92 mL/min/1.73 ESTIMA GILMA GFR IS code = 1092) sq m NOT ACCURATE CREATININE CLEARANCE IN PREDICTING GLOMERULAR FILTRATION RATE . ESTIMATED GFR I S NOT APPLICABLE FOR DIALYSIS PATIEN TS. CBC W/PLT COUNT & AUTO [id number] 04:14:00 Test Item Value Reference Range Interpretation [...] L 0.00-0.20 (test code = 417) 0.00POCT-GLUCOSE [id number] 03:20:00 Test Item Value Reference Range Interpretation Comments POC-GLUCOSE METER 170 mg/dL 70-110 H TESTED AT [facility] 6720 (BEAKER) (test code = [place] [address]) [address] POCT-GLUCOSE [id number] 01:40:00 Test Item Value Reference Range Interpretation Comments POC-GLUCOSE METER 216 mg/dL 70-110 H TESTED AT [place] [address] ([facility]) (test code = [place] [address]) [address] POCT-GLUCOSE [id number] 00:08:00 Test Item Value Reference Range Interpretation Comments POC-GLUCOSE METER 227 mg/dL 70-110 H TESTED AT [place] [address] ([facility]) (test code = [place]CHELL Lopez [place] [id number]) [id number] POCT-GLUCOSE [id number] 22:37:00 Test Item Value Reference Range Interpretation Comments POC-GLUCOSE METER 262 mg/dL 70-110 H TESTED AT [place] [address] ([facility]) (test code = MITCHELL Lopez [place] [id number]) [id number] POCT-GLUCOSE [id number] 20:41:00 Test Item Value Reference Range Interpretation Comments POC-GLUCOSE METER 318 mg/dL 70-110 H Notified Jessica Ward MD/TESTED ([facility]) (test code = AT [place] [address]) [facility] 7703 0 POCT-GLUCOSE [id number] 18:55:00 Test Item Value Reference Range Interpretation Comments POC-GLUCOSE METER 363 mg/dL 70-110 H Notified Jessica Ward MD/TESTED ([facility]) (test code = AT [place] [address]) [facility] 7703 0 POCT-GLUCOSE [id number] 18:03:00 Test Item Value Reference Range Interpretation Comments POC-GLUCOSE METER 408 mg/dL 70-110 HH Notified Jessica Ward MD/TESTED ([facility]) (test code = AT [place] [address]) [facility] 7703 0 POCT-GLUCOSE [id number] 16:43:00 Test Item Value Reference Range Interpretation Comments POC-GLUCOSE METER 413 mg/dL 70-110 HH Notified Jessica Ward MD/TESTED ([facility]) (test code = AT [place] [address]) [facility] 7703 0 POCT-GLUCOSE [id number] 11:39:00 Test Item Value Reference Range Interpretation Comments POC-GLUCOSE METER 332 mg/dL 70-110 H Notified Jessica Ward MD/TESTED ([facility]) (test code = AT [place] [address] [place] [address]) [place] [address] 0 POCT-GLUCOSE [id number] 09:06:00 Test Item Value Reference Range Interpretation Comments POC-GLUCOSE METER 173 mg/dL 70-110 H TESTED AT [place] [address] ([facility]) (test code = MITCHELL Lopez [facility] 1538) [address] POCT-GLUCOSE [id number] 07:16:00 Test Item Value Reference Range Interpretation Comments POC-GLUCOSE METER 128 mg/dL 70-110 H TESTED AT [place] [address] ([facility]) (test code = MITCHE[place] Lopez [facility] 1538) [id number] 05:44:00 Test Item Value Reference Range Interpretation Comments ACTIVATED CLOTTING TIME 121 sec TEST ED AT [place] [address] ([facility]) (test code = MITCHELL Lopez [facility] 441) [id number] 05:44:00 Test Item Value Reference Range Interpretation Comments ACTIVATED CLOTTING TIME 611 sec TEST ED AT [place] [address] ([facility]) (test code = MITCHE[place] Lopez [facility] 441) [address] [id number] 05:44:00 Test Item Value Reference Range Interpretation Comments ACTIVATED CLOTTING TIME 858 sec TEST ED AT [place] [address] ([facility]) (test code = MITCHE[place] Lopez [facility] 441) [address] [id number] 05:44:00 Test Item Value Reference Range Interpretation Comments ACTIVATED CLOTTING TIME 554 sec TEST ED AT [place] [address] ([facility]) (test code = MITCHELL Lopez [facility] 441) [address] CBC W/PLT COUNT & AUTO [id number] 04:59:00 Test Item Value Reference Range Interpretation Comments WHITE BLOOD CELL COUNT ([facility]) 8.8 K/ L 4.0-10.0 (test code = 775) RED BLOOD CELL COUNT ([facility]) 2.91 M/ L 4.20-5.80 L (test code = 761) HEMOGLOBIN ([facility]) (test code = 9.0 GM/DL 13.0-16.8 L 410) HEMATOCRIT ([facility]) (test code = 27.1 % 40.0-50.0 L [...] K/ L 0.00-0.20 (test code = 417) [id number] 04:59:00 Test Item Value Reference Range Interpretation Comments MAGNESIUM (BEAKER) (test code = 2.0 mg/dL 1.6-2.6 627) BASIC METABOLIC [id number] 04:59:00 Test Item Value Reference Range Interpretation Comments SODIUM (BEAKER) 142 meq/L 136-145 (test code = 381) POTASSIUM (BEAKER) 4.6 meq/L 3.5-5.1 (test code = 379) CHLORIDE (BEAKER) 112 meq/L 98-107 H (test code = 382) CO2 ([facility]) (test 23 meq/L 22-29 code = 355) BLOOD UREA NITROGEN 20 mg/dL 7-21 ([facility]) (test code = 354) CREATININE (AKER) 0.82 mg/dL 0.57-1.25 (test code = 358) GLUCOSE RANDOM 118 mg/dL 70-105 H ([facility]) (test code = 652) CALCIUM (AKER) 8.3 mg/dL 8.4-10.2 L (test code = 697) EGFR ([facility]) (test 99 mL/min/1.73 ESTIMA GILMA GFR IS code = 1092) sq m NOT ACCURATE CREATININE CLEARANCE IN PREDICTING GLOMERULAR FILTRATION RATE . ESTIMATED GFR I S NOT APPLICABLE FOR DIALYSIS PATIEN TS. POCT-GLUCOSE [id number] 02:19:00 Test Item Value Reference Range Interpretation Comments POC-GLUCOSE METER 137 mg/dL 70-110 H TESTED AT [place] [address] ([facility]) (test code = [facility] Jessica [facility] 1538) [address] POCT-GLUCOSE [id number] 23:33:00 Test Item Value Reference Range Interpretation Comments POC-GLUCOSE METER 118 mg/dL 70-110 H TESTED AT [place] [address] ([facility]) (test code = [facility] 1538) [address] POCT-GLUCOSE [id number] 19:30:00 Test Item Value Reference Range Interpretation Comments POC-GLUCOSE METER 109 mg/dL 70-110 TESTED AT [place] [address] ([facility]) (test code = [facility] 1538) [address] POCT-GLUCOSE [id number] 18:24:00 Test Item Value Reference Range Interpretation Comments POC-GLUCOSE METER 101 mg/dL 70-110 TESTED AT [place] [address] ([facility]) (test code = [facility] 1538) [address] GLUCOSE-STAT [id number] 16:59:00 Test Item Value Reference Range Interpretation Comments GLUCOSE RANDOM ([facility]) (test code 108 mg/dL 70-110 = 652) HGB/HCT (H&H) - STAT [id number] 16:59:00 Test Item Value Reference Range Interpretation Comments HEMOGLOBIN ([facility]) (test code = 9.0 g/dL 13.0-16.8 L 410) HEMATOCRIT (BEAKER) (test code = 26.0 % 40.0-50.0 L 411) BLOOD GAS, [id number] 16:59:00 Test Item Value Reference Range Interpretation [...] (test code = 1819) 36.0 % POCT-GLUCOSE [id number] 15:37:00 Test Item Value Reference Range Interpretation Comments POC-GLUCOSE METER 152 mg/dL 70-110 H TESTED AT [facility] 6720 (BEAKER) (test code = EMDARYA Lopez [place] 1538) [address] [id number] 15:11:00 Test Item Value Reference Range Interpretation Comments MAGNESIUM (BEAKER) (test code = 2.1 mg/dL 1.6-2.6 627) [id number] 15:10:00 Test Item Value Reference Range Interpretation Comments POTASSIUM (BEAKER) (test code = 4.0 meq/L 3.5-5.1 379) POCT-GLUCOSE [id number] 15:03:00 Test Item Value Reference Range Interpretation Comments POC-GLUCOSE METER 180 mg/dL 70-110 H TESTED AT [facility] 6720 (BEAKER) (test code = [place] 1538) [address] POCT-GLUCOSE [id number] 13:33:00 Test Item Value Reference Range Interpretation Comments POC-GLUCOSE METER 213 mg/dL 70-110 H TESTED AT [facility] 6720 (BEAKER) (test code = [place] 1538) [address] POCT-GLUCOSE [id number] 13:33:00 Test Item Value Reference Range Interpretation Comments POC-GLUCOSE METER 252 mg/dL 70-110 H TESTED AT [facility] 6720 (BEAKER) (test code = [place] 1538) [address] BASIC METABOLIC [id number] 13:30:00 Test Item Value Reference Range Interpretation [...] 697) EGFR (BEAKER) (test 86 mL/min/1.73 ESTIMA GILMA GFR IS code = 1092) sq m NOT ACCURATE CREATININE CLEARANCE IN PREDICTING GLOMERULAR FILTRATION RATE . ESTIMATED GFR I S NOT APPLICABLE FOR DIALYSIS PATIEN TS. LACTIC ACID, ARTERIAL, WHOLE [id number] 13:01:00 Test Item Value Reference Range Interpretation Comments LACTATE BLOOD 1.4 mmol/L 0.5-2.2 Specimen sligh tly ARTERIAL (2) (BEAKER) hemoly zed (test code = 2874) Effective 10/22/2015: Units/Reference Range ChangeNew: 0.5-2.2 mmol/L Previous: 5-20 mg/dLBLOOD GAS, [id number] 12:31:00 Test Item Value Reference Range Interpretation [...] 1819) 60.0 % HGB/HCT (H&H) - STAT [id number] 12:31:00 Test Item Value Reference Range Interpretation Comments HEMOGLOBIN (BEAKER) (test code = 10.2 g/dL 13.0-16.8 L 410) HEMATOCRIT (BEAKER) (test code = 30.0 % 40.0-50.0 L 411) GLUCOSE-STAT [id number] 12:31:00 Test Item Value Reference Range Interpretation Comments GLUCOSE RANDOM (BEAKER) (test code 239 mg/dL 70-110 H = 652) POTASSIUM-STAT [id number] 12:30:00 Test Item Value Reference Range Interpretation Comments POTASSIUM (BEAKER) (test code = 4.1 meq/L 3.6-5.5 379) CBC W/PLT COUNT & AUTO [id number] 12:24:00 Test Item Value Reference Range Interpretation [...] K/ L 0.00-0.20 (test code = 417) [id number] 12:18:00 Test Item Value Reference Range Interpretation Comments FIBRINOGEN LEVEL (BEAKER) (test 279 mg/dl 225-434 code = 658) [id number] 12:18:00 Test Item Value Reference Range Interpretation Comments PARTIAL THROMBOPLASTIN TIME 33.1 seconds 22.5-36.0 (BEAKER) (test code = 760) PROTHROMBIN [id number] 12:17:00 Test Item Value Reference Range Interpretation Comments PROTIME (BEAKER) (test code = 16.4 seconds 11.7-14.7 H 759) INR (BEAKER) (test code = 370) 1.3 <=5.9 RECOMMENDED COUMADIN/WARFARIN INR THERAPY RANGESSTANDARD DOSE: 2.0 - 3.0 Includes: PROPHYLAXIS for venous thrombosis, systemic embolization; TREATMENT for venous thrombosis and/or pulmonary embolus.HIGH RISK: Target INR is 2.5-3.5 for patients with mechanical heart valves.OXYGEN SATURATION, [id number] 12:02:00 Test Item Value Reference Range Interpretation Comments O2 SATURATION (MEASURED) (BEAKER) 74.7 % (test code = 1455) CALCIUM, [id number] 11:58:00 Test Item Value Reference Range Interpretation [...] 55.0-65.0 L (test code = 1413) PLATELET [id number] 10:45:00 Test Item Value Reference Range Interpretation Comments PLATELET COUNT (BEAKER) (test 114 K/CU MM 150-430 L code = 756) BLOOD GAS, [id number] 10:42:00 Test Item Value Reference Range Interpretation [...] code = 1819) 40.0 % SODIUM NA-STAT [id number] 10:42:00 Test Item Value Reference Range Interpretation Comments SODIUM (BEAKER) (test code = 381) 132 meq/L 135-148 L GLUCOSE-STAT [id number] 10:42:00 Test Item Value Reference Range Interpretation Comments GLUCOSE RANDOM (BEAKER) (test code 251 mg/dL 70-110 H = 652) HGB/HCT (H&H) - STAT [id number] 10:42:00 Test Item Value Reference Range Interpretation Comments HEMOGLOBIN (BEAKER) (test code = 8.9 g/dL 13.0-16.8 L 410) HEMATOCRIT (BEAKER) (test code = 26.0 % 40.0-50.0 L 411) CALCIUM, [id number] 10:42:00 Test Item Value Reference Range Interpretation Comments CALCIUM IONIZED (BEAKER) (test 0.94 mmol/L 1.12-1.27 L code = 698) PH, BLOOD (BEAKER) (test code = 7.33 1810) POTASSIUM-STAT [id number] 10:41:00 Test Item Value Reference Range Interpretation Comments POTASSIUM (BEAKER) (test code = 4.2 meq/L 3.6-5.5 379) [id number] 10:31:00 Test Item Value Reference Range Interpretation Comments FIBRINOGEN LEVEL (BEAKER) (test 287 mg/dl 225-434 code = 658) [id number] 10:31:00 Test Item Value Reference Range Interpretation Comments PARTIAL THROMBOPLASTIN TIME 36.2 seconds 22.5-36.0 H (BEAKER) (test code = 760) PROTHROMBIN [id number] 10:30:00 Test Item Value Reference Range Interpretation Comments PROTIME (BEAKER) (test code = 18.5 seconds 11.7-14.7 H 759) INR (BEAKER) (test code = 370) 1.6 <=5.9 RECOMMENDED COUMADIN/WARFARIN INR THERAPY RANGESSTANDARD DOSE: 2.0 - 3.0 Includes: PROPHYLAXIS for venous thrombosis, systemic embolization; TREATMENT for venous thrombosis and/or pulmonary embolus.HIGH RISK: Target INR is 2.5-3.5 for patients with mechanical heart valves.BLOOD GAS, [id number] 10:21:00 Test Item Value Reference Range Interpretation [...] code = 1819) 70.0 % SODIUM NA-STAT [id number] 10:21:00 Test Item Value Reference Range Interpretation Comments SODIUM (BEAKER) (test code = 381) 130 meq/L 135-148 L GLUCOSE-STAT [id number] 10:21:00 Test Item Value Reference Range Interpretation Comments GLUCOSE RANDOM (BEAKER) (test code 261 mg/dL 70-110 H = 652) HGB/HCT (H&H) - STAT [id number] 10:21:00 Test Item Value Reference Range Interpretation Comments HEMOGLOBIN (BEAKER) (test code = 9.2 g/dL 13.0-16.8 L 410) HEMATOCRIT (BEAKER) (test code = 27.0 % 40.0-50.0 L 411) POTASSIUM-STAT [id number] 10:20:00 Test Item Value Reference Range Interpretation Comments POTASSIUM (BEAKER) (test code = 4.7 meq/L 3.6-5.5 379) CALCIUM, [id number] 10:18:00 Test Item Value Reference Range Interpretation Comments CALCIUM IONIZED (BEAKER) (test 1.12 mmol/L 1.12-1.27 code = 698) PH, BLOOD (BEAKER) (test code = 7.27 1810) POTASSIUM-STAT [id number] 09:54:00 Test Item Value Reference Range Interpretation Comments POTASSIUM (BEAKER) (test code = 4.9 meq/L 3.6-5.5 379) BLOOD GAS, [id number] 09:54:00 Test Item Value Reference Range Interpretation [...] code = 1819) 70.0 % SODIUM NA-STAT [id number] 09:54:00 Test Item Value Reference Range Interpretation Comments SODIUM (BEAKER) (test code = 381) 130 meq/L 135-148 L GLUCOSE-STAT [id number] 09:54:00 Test Item Value Reference Range Interpretation Comments GLUCOSE RANDOM (BEAKER) (test code 189 mg/dL 70-110 H = 652) HGB/HCT (H&H) - STAT [id number] 09:54:00 Test Item Value Reference Range Interpretation Comments HEMOGLOBIN (BEAKER) (test code = 8.7 g/dL 13.0-16.8 L 410) HEMATOCRIT (BEAKER) (test code = 26.0 % 40.0-50.0 L 411) BLOOD GAS, [id number] 09:34:00 Test Item Value Reference Range Interpretation [...] code = 1819) 70.0 % SODIUM NA-STAT [id number] 09:34:00 Test Item Value Reference Range Interpretation Comments SODIUM (BEAKER) (test code = 381) 127 meq/L 135-148 L POTASSIUM-STAT [id number] 09:34:00 Test Item Value Reference Range Interpretation Comments POTASSIUM (BEAKER) (test code = 5.5 meq/L 3.6-5.5 379) GLUCOSE-STAT [id number] 09:34:00 Test Item Value Reference Range Interpretation Comments GLUCOSE RANDOM (BEAKER) (test code 177 mg/dL 70-110 H = 652) HGB/HCT (H&H) - STAT [id number] 09:34:00 Test Item Value Reference Range Interpretation Comments HEMOGLOBIN (BEAKER) (test code = 7.9 g/dL 13.0-16.8 L 410) HEMATOCRIT (BEAKER) (test code = 23.0 % 40.0-50.0 L 411) BLOOD GAS, [id number] 09:33:00 Test Item Value Reference Range Interpretation [...] code = 1819) 70.0 % SODIUM NA-STAT [id number] 08:42:00 Test Item Value Reference Range Interpretation Comments SODIUM (BEAKER) (test code = 381) 135 meq/L 135-148 BLOOD GAS, [id number] 08:42:00 Test Item Value Reference Range Interpretation [...] (test code = 1819) 100.0 % POTASSIUM-STAT [id number] 08:42:00 Test Item Value Reference Range Interpretation Comments POTASSIUM (BEAKER) (test code = 3.3 meq/L 3.6-5.5 L 379) GLUCOSE-STAT [id number] 08:42:00 Test Item Value Reference Range Interpretation Comments GLUCOSE RANDOM (BEAKER) (test code 214 mg/dL 70-110 H = 652) HGB/HCT (H&H) - STAT [id number] 08:42:00 Test Item Value Reference Range Interpretation Comments HEMOGLOBIN (BEAKER) (test code = 13.2 g/dL 13.0-16.8 410) HEMATOCRIT (BEAKER) (test code = 39.0 % 40.0-50.0 L 411) CALCIUM, [id number] 08:42:00 Test Item Value Reference Range Interpretation Comments CALCIUM IONIZED (BEAKER) (test 1.08 mmol/L 1.12-1.27 L code = 698) PH, BLOOD (BEAKER) (test code = 7.46 1810) POCT-GLUCOSE [id number] 06:55:00 Test Item Value Reference Range Interpretation Comments POC-GLUCOSE METER 229 mg/dL 70-110 H TESTED AT [facility] 6720 (BEAKER) (test code = MITCHELL Lopez [place] 1538) [address] HEMOGLOBIN [id number] 11:00:00 Test Item Value Reference Range Interpretation Comments HEMOGLOBIN A1C (BEAKER) (test code = 15.1 % 4.3-6.1 H 368) BASIC METABOLIC [id number] 10:01:00 Test Item Value Reference Range Interpretation [...] 697) EGFR (BEAKER) (test 66 mL/min/1.73 ESTIMA GILMA GFR IS code = 1092) sq m NOT ACCURATE CREATININE CLEARANCE IN PREDICTING GLOMERULAR FILTRATION RATE . ESTIMATED GFR I S NOT APPLICABLE FOR DIALYSIS PATIEN TS. [id number] 09:46:00 Test Item Value Reference Range Interpretation Comments PROTIME (BEAKER) (test code = 12.4 seconds 11.7-14.7 759) INR (BEAKER) (test code = 370) 0.9 <=5.9 PARTIAL THROMBOPLASTIN TIME 27.5 seconds 22.5-36.0 (BEAKER) (test code = 760) RECOMMENDED COUMADIN/WARFARIN INR THERAPY RANGESSTANDARD DOSE: 2.0 - 3.0 Includes: PROPHYLAXIS for venous thrombosis, systemic embolization; TREATMENT for venous thrombosis and/or pulmonary embolus.HIGH RISK: Target INR is 2.5-3.5 for patients with mechanical heart valves.CBC W/PLT COUNT & AUTO [id number] 09:40:00 Test Item Value Reference Range Interpretation [...] L 0.00-0.20 (test code = 417) 0.00 Notes Date/Time Note Provider Source 2020-08-27 08:22:00-00:00 [id number] [address] PATIENT NAME: MARGARITA NOONAN ADMIT DATE: 08/18 ACCOUNT NO: [id number] ROOM NO: AGE: 55 REPORT TYPE: OPERATIVE REPORT SEX: M ADMITTING PHYSICIAN: ATTENDING PHYSICIAN: Tiff Estrada MD OPERATION DATE: 08/27/2020 PREOPERATIVE DIAGNOSIS: Duodenal mass. POSTOPERATIVE DIAGNOSIS: PROCEDURES: 1. EGD with biopsy. 2. Side-view ERCP scope EGD to take a look at th e duodenal lesion that is better visualized by side-view scope. 3. Endoscopic ultrasound realtime and static patsy ge interpretation. SURGEON: Tiff Estrada MD BERRY PICKER: ANESTHESIA: INDICATION: Duodenal mass. COMPLEXITY: Complex procedure by very nature. TOLERANCE TO ANESTHESIA: Excellent. PROCEDURE IN DETAIL: Procedure, possible complic ation, and alternatives including but not limited to possibility of blee ding, perforation, tear, infection, sepsis, need for surgery, need for bl ood transfusion, and anesthesia-related problem e xplained to the patient. Informed consent obtained. The patient was placed in the left lateral posi tion. At first, forward-view EGD scope was pas sed. Esophageal mucosa in proximal and mid aspect appeared to be within normal range. D istally, mild esophagitis noted. Surprisingly, in the stomach throughout, diffuse gastritis noted along with some hemorrhagic spots. In addition to that, prepylor ic erosion noted. As a result of this, gastric body and antral biopsy done. Re troflexion was the same. Duodenal bulb showed a lesion that only could be seen at the base because this arises from a sidewall, so forward-view scope di d not have a good vision, duodenal part 2 appeared to be within normal ran ge. Having done up to above, side-view ERCP scope was ins erted after removing this scope. Side-view revealed that this was approximately 1- to 2-cm mass, chucky duran mobile. After this PATIENT NAME: MARGARITA NOONAN ACCOUNT #: [id number] evaluation, side-view scope was pulled o ut and endoscopic ultrasound scope was passed. Endoscopic ultrasound image showed 1.5- to 2-cm, well-circumscribed, hyperechoic submucosal structure. The overlying mucosa was completely free of any lesion, so as the underlying muscular propri a. No invasion or pseudopodia noted. Gallbladder seemed to be contract ed. The pancreas seemed to be somewhat atrophic; however, other major blood ves sels including celiac axis appeared to be within normal range. Distal common bile duct was normal in diameter. Having done the above procedure in safe, diligen t, and satisfactory manner, endoscope and rest of the endoscopic accessories were removed. The patient's oropharyngeal area cleaned out in respec tful manner. The patient has been sent in excellent condition to postoperative recovery , from there to home. 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 PLAN: 1. We will follow him serially. 2. EGD scope will be done in 6 months. If it is stable, then he will need yearly EGD to follow the above mass. No intervention will be needed based upon this endoscopic ultrasound f inding unless it changes its character and behavior. Continue on proton pump inhibitor. Await biopsy result. Follow up in office. COMPLICATIONS: None. The patient tolerated the procedure well. DISPOSITION: As above. Dictated By: Tiff Estrada MD WT: OP:L.HIM/JAVII/NTS Conf#: [id number]/DID#: [id number] Authenticated by Tiff Estrada MD On 08/31/2020 09:56:06 AM at 0956 PATIENT NAME: MARGARITA NOONAN ACCOUNT #: [id number] [id number] 08:08:00-00:00 [id number] [place] [id number] PATIENT NAME: MARGARITA NOONAN ADMIT DATE: 05/21 07/09 ACCOUNT NO: [id number] ROOM NO: AGE: 55 REPORT TYPE: ENDOSCOPY REPORT SEX: M ADMITTING PHYSICIAN: ATTENDING PHYSICIAN: Bubba Taylor MD Patient Name: Margarita Noonan Procedure Date: 8:08 AM Date of : 1965 Gender: Male Attending MD: Bubba Taylor , Procedure: Upper GI endoscopy Indications: Abnormal CT of the GI tract Providers: Bubba Taylor (Doctor) Referring MD: Requesting Provider: Medicines: See the Anesthesia note for documenta tion of the administered medications Complications: No immediate complications. Procedure: Pre-Anesthesia Assessment: - Prior to the procedure, a History and Physica l was performed, and patient medications and allergie s were reviewed. The patient is competent. The risks a nd benefits of the procedure and the sedation opti ons and risks were discussed with the patient. All que stions were answered and informed consent was obtained . Patient identification and proposed procedure were veri fied by the physician, the nurse and the anesthesiologi st in the procedure room. Mental Status Examination: aler t and oriented. Airway Examination: normal oropharyn geal airway and neck mobility. Respiratory Examinati on: clear to auscultation. CV Examination: normal. Prophy lactic Antibiotics: The patient does not require proph ylactic antibiotics. Prior Anticoagulants: The patient has taken no previous anticoagulant or antiplatelet agen ts. ASA Grade Assessment: III - A patient with severe s ystemic disease. After reviewing the risks and benefits , the patient was deemed in satisfactory condition to undergo the procedure. The anesthesia plan was to use [facility] (MAC). Immediately prior to administration of medications, the patient was re-assessed for adequacy to receive sedatives. The heart rate, respiratory rate, oxygen saturations, blo od pressure, adequacy of pulmonary ventilation, an d response to care were monitored throughout the PATIENT NAME: MARGARITA NOONAN ACCOUNT #: [id number] procedure. The physical status of the patient w as re-assessed after the procedure. After obtaining informed consent, the endoscope was passed under direct vision. Throughout the proc edure, the patient's blood pressure, pulse, and oxygen saturations were monitored continuously. The En doscope was introduced through the mouth, and advanced to the second part of duodenum. The upper GI endoscopy was accomplished without difficulty. The patient to lerated the procedure well. Findings: The Z-line was irregular and was found 40 cm fr om the incisors. Biopsies were taken with a cold forceps for histology. V erification of patient identification for the specimen was done by the physician and nurse using the patient's name and date. Estima gilma blood loss was minimal. No gross lesions were noted in the entire esoph mina. Multiple dispersed, non-bleeding erosions were found in the gastric body and in the gastric antrum. There were no stigma ta of recent bleeding. Biopsies were taken with a cold forceps for his tology. Verification of patient identification for the specimen was don e by the physician and nurse using the patient's name and date. Estimated blood loss was minimal. A medium-sized submucosal mass with no bleedin g was found in the duodenal bulb. Biopsies were taken with a cold forceps for histology. Verification of patient identification for the specimen was done by the physician and nurse using the patient's name an d date. Estimated blood loss was minimal. Impression: - Z-line irregular, 40 cm from the i ncisors. Biopsied. - No gross lesions in esophagus. - Non-bleeding erosive gastropathy. Biopsied. - Duodenal mass. Biopsied. Recommendation: - Discharge patient to home. - Patient has a contact number available for emergencies. The signs and symptoms of potentia l delayed complications were discussed with the patient. Return to normal activities tomorrow. Written discharge instructions were provided to the patient. - Await pathology results. - Return to GI clinic in 2 weeks. - Use a proton pump inhibitor PO daily. - No aspirin, ibuprofen, naproxen, or other non-steroidal anti-inflammatory drugs. - If biopsies negative, will need EUS. Bubba Taylor, 06/09/2020 8:35:59 AM Number of Addenda: 0 Note Initiated On: 06/09/2020 8:08 AM PATIENT NAME: MARGARITA NOONAN ACCOUNT #: [id number] Estimated Blood Loss: Estimated blood loss was minimal. [id number] [place] [address] Provation {[id number] ProVation FT PDF at 0836 PATIENT NAME: MARGARITA NOONAN ACCOUNT #: [id number] 1499-09-30 11:35:00-00:00 HCACL [facility] ([facility]) Discharge Summary REPORT#:[id number] REPORT STATUS: Signed DATE:03/19/20 TIME: 1135 PATIENT: MARGARITA NOONAN UNIT #: [id number] ROOM/BED: [place] [address] : 63 AGE: 54 SEX: M ATTEND: Yohan Vargas MD ADM AUTHOR: Umair Guerrier * ALL edits or amendments must be made on the [employer]/computer document * PCP PCP Discharge to: home General Information Discharge date: 03/19/20 Hospital course: -s/p ablation ICD implantation per ([facility]) -monitored overnight -hemodynamically stable -tele - SR, intermittent VPaced, 90s -device interrogation completed; normal function -CXR: no pneumo -L arm sling in place -ICD site clean, dry; no sign of infection -instructions given for wound care, mobility, dr tamez, and moisture -Rx: minocycline -d/c home; outpt f/u w/ in 2 weeks Med Rec PCP PCP: PCP: DOES_NOT KNOW Med Rec Discharge meds: Start taking the following new medications: MINOCYCLINE (MINOCIN) 100 MG CAP 100 MILLIGRAM ORAL EVERY 12 HOURS. Days = 3 Qty = 6 No Refills Objective VS/I O Last Documented: Result Date Time Pulse Ox 95 03/19 1044 B/P 143/81 03/19 1044 B/P Mean 101.7 03/19 1044 O2 Delivery Room air 03/19 1044 Temp 36.4 03/19 1044 Pulse 100 03/19 1044 Resp 16 03/19 1044 24 hour I O ending at 0700: 03/19 0700 03/18 1900 Intake Total 120 Output Total 650 Balance -650 120 Intake, Oral 120 Output, Urine 650 Patient 102.5 kg Weight Weight Stated/Reported Measurement Method Patient Weight Weight (lb): 225 Weight (oz): 15.58 Weight (kg): 102.500 General appearance: alert, awake, oriented, no a cute distress Cardiovascular: regular rate rhythm Respiratory: clear to auscultation, no distress GI: soft, non-tender Extremities: moves all Neuro/TUNNEL WORKER: alert, oriented X 3 Skin: dry Wound/incision: Location: ICD site clean, dry; no sign of infection Results Findings/Data: Laboratory Tests: 03/19 03/19 03/19 03/18 03/18 1043 0822 0235 2227 1949 Chemistry POC Glucose (70 - 110 MG/DL) 324 H 339 H 274 H 362 H 418 H Radiology data: Recent Impressions: RADIOLOGY - XR CHEST 1 V 03/18 1633 Report Impression - Status: SIGNED Entered: 03/18/2020 1638 IMPRESSION: Left chest transvenous pacing device placement. Otherwise, stable chest. SL: SG-H Impression By: [email or web address] - Felipe Meyers M.D. RADIOLOGY - XR CHEST 1 V 03/19 0542 Report Impression - Status: SIGNED Entered: 03/19/2020 0554 Impression: Similar exam findings without acute interval dannie nge. No pneumothorax. Left suprahilar and basilar opacities are unchan ged. Asymmetrical left apical pleural thickening is r edemonstrated, similar to the preprocedure film dated 03/14/2020. Compar alvaro to older films or follow-up CT is recommended to document stabi lity and exclude underlying mass. AICD. Post sternotomy changes. Impression By: [email or web address] - Danielle Adame M.D. Treatments Procedures Treatments Procedures: Dual-chamber implantable cardioverter-defibrilla tor implant and moderate sedation Imaging: Recent Impressions: RADIOLOGY - XR CHEST 1 V 03/18 1633 Report Impression - Status: SIGNED Entered: 03/18/2020 1638 IMPRESSION: Left chest transvenous pacing device placement. Otherwise, stable chest. SL: SG-H Impression By: [email or web address] - Felipe Meyers M.D. RADIOLOGY - XR CHEST 1 V 03/19 0542 Report Impression - Status: SIGNED Entered: 03/19/2020 0554 Impression: Similar exam findings without acute interval dannie nge. No pneumothorax. Left suprahilar and basilar opacities are unchan ged. Asymmetrical left apical pleural thickening is r edemonstrated, similar to the preprocedure film dated 03/14/2020. Compar alvaro to older films or follow-up CT is recommended to document stabi lity and exclude underlying mass. AICD. Post sternotomy changes. Impression By: [email or web address] - Danielle Adame M.D. Discharge Instructions PCP PCP: PCP: DOES_NOT KNOW )( Discharge to: Home/Self Care Discharge Instructions Additional Discharge Routines: None )( Diet: Cardiac )( Activity: As Tolerated Follow-up Appointments Attending Physician: Attending Physician: Rudy Vargas MD Special instructions: F/U 2 WEEKS Electronically Signed by Umair Guerrier on 0 03/19/20 at 1148 RPT #:[id number] END OF REPORT 2020-03-19 11:35:00-00:00 HCACL [facility] Discharge Summary REPORT#:[id number] REPORT STATUS: Signed DATE:03/19/20 TIME: 1135 PATIENT: MARGARITA NOONAN UNIT #: [id number] ROOM/BED: [place] [address] : 63 AGE: 54 SEX: M ATTEND: Yohan Vargas MD ADM AUTHOR: Umair Guerrier * ALL edits or amendments must be made on the el [employer]/computer document * PCP PCP Discharge to: home General Information Discharge date: 03/19/20 Hospital course: -s/p ablation ICD implantation per ([facility]) -monitored overnight -hemodynamically stable -tele - SR, intermittent VPaced, 90s -device interrogation completed; normal function -CXR: no pneumo -L arm sling in place -ICD site clean, dry; no sign of infection -instructions given for wound care, mobility, dr tamez, and moisture -Rx: minocycline -d/c home; outpt f/u w/ in 2 weeks Med Rec PCP PCP: PCP: DOES_NOT KNOW Med Rec Discharge meds: Start taking the following new medications: MINOCYCLINE (MINOCIN) 100 MG CAP 100 MILLIGRAM ORAL EVERY 12 HOURS. Days = 3 Qty = 6 No Refills Objective VS/I O Last Documented: Result Date Time Pulse Ox 95 03/19 1044 B/P 143/81 03/19 1044 B/P Mean 101.7 03/19 1044 O2 Delivery Room air 03/19 1044 Temp 36.4 03/19 1044 Pulse 100 03/19 1044 Resp 16 03/19 1044 24 hour I O ending at 0700: 03/19 0700 03/18 1900 Intake Total 120 Output Total 650 Balance -650 120 Intake, Oral 120 Output, Urine 650 Patient 102.5 kg Weight Weight Stated/Reported Measurement Method Patient Weight Weight (lb): 225 Weight (oz): 15.58 Weight (kg): 102.500 General appearance: alert, awake, oriented, no a cute distress Cardiovascular: regular rate rhythm Respiratory: clear to auscultation, no distress GI: soft, non-tender Extremities: moves all Neuro/TUNNEL WORKER: alert, oriented X 3 Skin: dry Wound/incision: Location: ICD site clean, dry; no sign of infection Results Findings/Data: Laboratory Tests: 03/19 03/19 03/19 03/18 03/18 1043 0822 0235 2227 1949 Chemistry POC Glucose (70 - 110 MG/DL) 324 H 339 H 274 H 362 H 418 H Radiology data: Recent Impressions: RADIOLOGY - XR CHEST 1 V 03/18 1633 Report Impression - Status: SIGNED Entered: 03/18/2020 1638 IMPRESSION: Left chest transvenous pacing device placement. Otherwise, stable chest. SL: DARSHANA-H Impression By: [email or web address] - Felipe Meyers M.D. RADIOLOGY - XR CHEST 1 V 03/19 0542 Report Impression - Status: SIGNED Entered: 03/19/2020 0554 Impression: Similar exam findings without acute interval dannie nge. No pneumothorax. Left suprahilar and basilar opacities are unchan ged. Asymmetrical left apical pleural thickening is r edemonstrated, similar to the preprocedure film dated 03/14/2020. Compar alvaro to older films or follow-up CT is recommended to document stabi lity and exclude underlying mass. AICD. Post sternotomy changes. Impression By: Lauren Adame M.D. Treatments Procedures Treatments Procedures: Dual-chamber implantable cardioverter-defibrilla tor implant and moderate sedation Imaging: Recent Impressions: RADIOLOGY - XR CHEST 1 V 03/18 1633 Report Impression - Status: SIGNED Entered: 03/18/2020 1638 IMPRESSION: Left chest transvenous pacing device placement. Otherwise, stable chest. SL: SG-H Impression By: [email or web address] Nayely Meyers M.D. RADIOLOGY - XR CHEST 1 V 03/19 0542 Report Impression - Status: SIGNED Entered: 03/19/2020 0554 Impression: Similar exam findings without acute interval dannie nge. No pneumothorax. Left suprahilar and basilar opacities are unchan ged. Asymmetrical left apical pleural thickening is r edemonstrated, similar to the preprocedure film dated 03/14/2020. Compar alvaro to older films or follow-up CT is recommended to document stabi lity and exclude underlying mass. AICD. Post sternotomy changes. Impression By: Lauren Adame M.D. Discharge Instructions PCP PCP: PCP: DOES_NOT KNOW )( Discharge to: Home/Self Care Discharge Instructions Additional Discharge Routines: None )( Diet: Cardiac )( Activity: As Tolerated Follow-up Appointments Attending Physician: Attending Physician: Rudy Vargas MD Special instructions: F/U 2 WEEKS Electronically Signed by Umair Guerrier on 0 03/19/20 at 1148 at 1340 RPT #:[id number] END OF REPORT 2020-03-18 14:11:00-00:00 [id number] [address] PATIENT NAME: MARGARITA NOONAN ADMIT DATE: 02/19 03/09 ACCOUNT NO: [id number] ROOM NO: 55 AGE: 54 REPORT TYPE: OPERATIVE REPORT SEX: M ADMITTING PHYSICIAN:Rudy Vargas MD ATTENDING PHYSICIAN:Rudy Vargas MD OPERATION DATE: 03/18/2020 PREOPERATIVE DIAGNOSES: Ischemic cardiomyopathy, history of bypass, optimal medical management, EF 25% unchanged, and declin ing. POSTOPERATIVE DIAGNOSIS: PROCEDURE: Dual-chamber implantable cardioverter -defibrillator implant and moderate sedation with 4 of Versed and 1 00 of fentanyl for 45 minutes while O2 sat, heart rate, and blood pressure were being m onitored by me and the circulating nurse, Mr. Sacha Slaughter. SURGEON: Rudy Vargas MD BERRY PICKER: ANESTHESIA: PROCEDURE IN DETAIL: The patient was bro ught into the EP lab in fasting state. Left chest prepped and draped in sterile fashion . Conscious sedation administered. Vancomycin and Ancef were given. A 3 cm skin incision was made. Subcutaneous tissue and pocket were form ed. Two guidewires inserted inside the left axillary vein using modified Seldinger tech nique. No complications. ICD lead advanced to the RV apex , sensing 10, threshold 0.9, impedance 500 ohms, and then a pacing lead advanced to the right atrial appendage, sensing 2.1, threshold 1, impedance 600 o hms. Both leads sutured to the fascia using 0 silk. Pocket profusely irrigated using antibi otic solution. Leads were connected to an Payne dual-chamber ICD, serial #[id number]. Generator placed inside the pocket and sutured to the fascia using 0 silk. Subcutan eous tissue approximated with 2-0 Vicryl in 2 layers. Skin was approximated us ing 4-0 Stratafix and Dermabond. The patient tolerated the procedure w ith no complications. CONCLUSION: Dual-chamber ICD implant. PLAN: Clinical follow up in 2 weeks. Dictated By: Rudy Vargas MD WT: OP:PHOEBE/HEMKH/NTS Conf#: [id number]#: [id number] PATIENT NAME: MARGARITA NOONAN [id number] Authenticated by Rudy Vargas MD On 03/19 11:08:56 AM at 1109 PATIENT NAME: MARGARITA NOONAN [id number] 2020-03-14 09:55:00-00:00 [id number] [place] [address] PATIENT NAME: MARGARITA NOONAN ADMIT DATE: ACCOUNT NO: [id number] ROOM NO: AGE: 54 REPORT TYPE: eELECTROCARDIOGRAM REPORT SEX: M ADMITTING PHYSICIAN: ATTENDING PHYSICIAN:Rudy Vargas MD Order: [id number] Test Reason : PRE-OP Test Date/Time Stamp: TueMar 14 2020 09:55:14 Blood Pressure : / mmHG Vent. Rate : 092 BPM Atrial Rate : 092 BPM P-R Int : 168 ms QRS Dur : 104 ms QT Int : 394 ms P-R-T Axes : 065 032 084 degree s QTc Int : 487 ms Sinus rhythm with frequent premature ventricular complexes Nonspecific ST and T wave abnormality Prolonged QT Abnormal ECG No previous ECGs available Confirmed by ABILIO NJ MD ([id number]) on 03/14/20 10:46:49 AM Referred By: Rudy Vargas Confirmed by:ALISON NJ MD at 1047 PATIENT NAME: MARGARITA NOONAN ACCOUNT #: [id number]
[2022-11-05 04:45] LABS: Absolute Lymphocytes (CBC) 1.2 K/uL (0.7-4.9); Hematocrit 39.7 % (39.6-49.0); Lymphocytes % 17.4 % (15.3-44.8); MCV 91.5 fL (80-100); MPV 9.3 fL (7.6-11.3); Protime INR 0.93; RBC Red Blood Cell Count 4.34 M/uL (4.33-5.43)
[2022-11-05 05:00] LABS: ALT/SGPT 28 U/L (16-61); AST/SGOT 10 U/L (15-37); Alkaline Phosphatase 85 U/L (45-117); BUN Blood Urea Nitrogen 29 mg/dL (7-18); Bicarbonate 30 mEq/L (21-32); Bilirubin Total 0.3 mg/dL (0.2-1.0); Glomerular Filtration Rate 63 ml/min (=/>90); Glucose Level 300 mg/dL (74-106); NT PRO-BNP 398 pg/mL (<125); Potassium 4.7 mEq/L (3.5-5.1); Protein, Total 6.9 g/dL (6.4-8.2); Sodium Level 136 mEq/L (136-145); Troponin High Sensitivity 15.7 pg/mL (<58.9)
[2022-11-05 05:13] LABS: Bilirubin Direct < 0.1 mg/dL (0-0.2); Bilirubin Indirect, Calculated ND mg/dL (0.2-0.8)
--- NOTE | 2022-11-05 07:05 | ER ---
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 Coronavirus screen: Vaccine status: Patient reports receiving the 2nd dose of the covid vaccine. Ebola Screen: Patient negative for fever greater than or equal to 101.5 degrees Fahrenheit, and additional compatible Ebola Virus Disease symptoms. Initial Sepsis Screen: Does the patient meet any 2 criteria? No. Patient's initial sepsis screen is negative. Does the patient have a suspected source of infection? No. Patient's initial sepsis screen is negative. Risk Assessment: Do you want to hurt yourself or someone else? Patient reports no desire to harm self or others. 03:45 Method Of Arrival: Ambulatory 03:45 Acuity: JAIMEE 3 03:45 Onset of symptoms was November 05, 2022. ha1 Triage Assessment: 03:51 General: Appears in no apparent distress. Behavior is calm, cooperative. Respiratory: Reports coughing up blood Airway is patent Trachea midline Respiratory effort is even, unlabored, Respiratory pattern is regular, symmetrical, Sputum is bloody. 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 - Social history:: Smoking status: Patient/guardian denies using tobacco, the patient reports quitting approximately 1.5 years ago. Screenin:38 Abuse screen: Denies threats or abuse. Denies injuries from another. Nutritional ha1 screening: No deficits noted. Tuberculosis screening: No symptoms or risk factors identified. 07:40 [facility] ED Fall Risk Assessment (Adult) History of falling in the last 3 months, kd3 including since admission No falls in past 3 months (0 pts) Confusion or Disorientation No (0 pts) Intoxicated or Sedated No (0 pts) Impaired Gait No (0 pts) Mobility Assist Device Used No (0 pt) Altered Elimination No (0 pt) Score/Fall Risk Level 0 - 2 = Low Risk Oriented to surroundings, Maintained a safe environment, Hourly rounding (assess needs \\T\\ fall precautionary measures) done. Assessment: 03:38 General: Appears comfortable, Behavior is calm, cooperative. Pain: Denies pain. Neuro: ha1 Level of Consciousness is awake, alert, obeys commands, Oriented to person, place, time, situation. Cardiovascular: Capillary refill < 3 seconds Patient's skin is warm and dry. Respiratory: Airway is patent Respiratory effort is even, unlabored, Respiratory pattern is regular, symmetrical. Respiratory: Reports having TB results positive. GI: Abdomen is round non-distended, Bowel sounds present X 4 quads. Reports since vomiting blood. : No signs and/or symptoms were reported regarding the genitourinary system. Derm: Skin is pink, warm \\T\\ dry. Musculoskeletal: Circulation, motion, and sensation intact. Range of motion: intact in all extremities. 04:35 Reassessment: Patient and/or family updated on plan of care and expected duration. Pain ha1 level reassessed. Patient is alert, oriented x 3, equal unlabored respirations, skin warm/dry/pink. 04:57 Reassessment: going to CT. ha1 05:30 Reassessment: Patient and/or family updated on plan of care and expected duration. Pain ha1 level reassessed. Patient is alert, oriented x 3, equal unlabored respirations, skin warm/dry/pink. 07:37 Reassessment: Patient appears in no apparent distress at this time. Patient and/or kd3 family updated on plan of care and expected duration. Pain level reassessed. Patient is alert, oriented x 3, equal unlabored respirations, skin warm/dry/pink. Pt states, " Can I talk to the doctor? I really don't want to go to [place] unless I really, really need to." Pt also states that the amount of bleeding has slowed, " It was a lot when I woke up last night but it's only happened 1 more time since I've been here and it wasn't as much." ERP notified of pt's request. Bp also noted to be high at this time, pt states that he has not had his morning BP medication today. 10:00 Reassessment: Patient appears in no apparent distress at this time. Patient and/or ph family updated on plan of care and expected duration. Pain level reassessed. Patient is alert, oriented x 3, equal unlabored respirations, skin warm/dry/pink. 12:00 Reassessment: Patient appears in no apparent distress at this time. Patient and/or ph family updated on plan of care and expected duration. Pain level reassessed. Patient is alert, oriented x 3, equal unlabored respirations, skin warm/dry/pink. 14:00 Reassessment: Patient appears in no apparent distress at this time. Patient and/or ph family updated on plan of care and expected duration. Pain level reassessed. Patient is alert, oriented x 3, equal unlabored respirations, skin warm/dry/pink. 16:10 Reassessment: Attempted to call report to receiving facility, was told that the room ph was still dirty and asked to call back in 15 minutes. 16:48 Reassessment: Patient appears in no apparent distress at this time. Patient and/or ph family updated on plan of care and expected duration. Pain level reassessed. Patient is alert, oriented x 3, equal unlabored respirations, skin warm/dry/pink. Attempted to call report, told that receiving nurse was in a room drawing blood and asked to call back in 10 minutes. 17:24 Reassessment: Patient appears in no apparent distress at this time. Patient and/or ph family updated on plan of care and expected duration. Pain level reassessed. Patient is alert, oriented x 3, equal unlabored respirations, skin warm/dry/pink. Report called to MAHAMED Sultana at [facility], [facility] at bedside for transport. Vital Signs: 03:45 BP 168 / 91; Pulse 82; Resp 20; Temp 98.1; Pulse Ox 98% on R/A; Weight 92.53 kg (M); kl Height 5 ft. 11 in. ; 05:00 BP 164 / 88; Pulse 74; Resp 16 S; Pulse Ox 94% on R/A; ha1 05:30 BP 166 / 80; Pulse 75; Resp 18 S; Pulse Ox 94% on R/A; ha1 06:00 BP 161 / 73; Pulse 68; Resp 18 S; Pulse Ox 96% on R/A; ha1 07:39 BP 204 / 86; Pulse 73; Resp 18; Pulse Ox 99% on R/A; Pain 0/10; kd3 08:46 BP 201 / 101; Pulse 82; Resp 18; Pulse Ox 100% on R/A; ph 10:02 BP 179 / 81; Pulse 78; Resp 18; Pulse Ox 96% on R/A; hb 12:00 BP 176 / 87; Pulse 77; Resp 18; Pulse Ox 97% on R/A; ph 14:00 BP 148 / 86; Pulse 87; Resp 22; Pulse Ox 98% on R/A; ph 16:00 BP 151 / 89; Pulse 88; Resp 18; Temp 97.9; Pulse Ox 99% on R/A; ph 03:45 Body Mass Index 28.45 (92.53 kg, 180.34 cm) kl 07:39 Pain Scale: Adult kd3 ED Course: 03:37 Patient arrived in ED. ag3 03:38 Ian Gutierrez MD is Attending Physician. sp3 03:38 Arm band placed on right wrist. ha1 03:38 Patient has correct armband on for positive identification. Bed in low position. Call ha1 light in reach. Side rails up X 1. 03:47 Triage completed. kl 03:49 Caroline Campbell, RN is Primary Nurse. kd3 04:00 Inserted saline lock: 22 gauge in left hand, using aseptic technique. ha1 04:21 Basic Metabolic Panel Sent. ha1 04:21 CBC with Diff Sent. ha1 04:21 LFT's Sent. ha1 04:21 Magnesium Sent. ha1 04:22 NT PRO-BNP Sent. ha1 04:22 PT-INR Sent. ha1 04:22 Troponin HS Sent. ha1 05:09 CT Chest W/ Con In Process Unspecified. EDMS 06:45 Transfer initiated with Viviana at [facility]. as7 07:03 Attending Physician role handed off by Ian Gutierrez MD dannie 07:03 Bienvenido Rubio MD is Attending Physician. dannie 07:42 connected the plan checker configuration management analyst for [facility] with Dr. Rubio for patient eb transfer consultation. 07:[address] Olmedo the hospitalist configuration management analyst for [facility] with Dr. Rubio for eb patient transfer consultation. 08:15 per Lori from the transfer center they do not have any negative pressure rooms at this eb time/ the cleaner housekeeping says they should have one after lunch/ provider notified. 08:23 SARS RAPID Sent. ph 08:23 No provider procedures requiring assistance completed. Patient transferred, IV remains ph in place. 15:35 administrative approval given by VICKEY Ahumada/ patient has been accepted to [facility] eb [address] [place] bed 2163/ Dr Kanika Burleson has accepted the patient in transfer/ report to be called to [phone]. Administered Medications: 07:36 Drug: Famotidine IVP 20 mg Route: IVP; Site: left hand; kd3 17:28 Follow up: Response: No adverse reaction ph 07:36 Drug: Piperacillin-Tazobactam IVPB 3.375 grams Route: IVPB; Infused Over: 60 mins; kd3 Site: left hand; 08:40 Follow up: Response: No adverse reaction; IV Status: Completed infusion ph 08:23 Drug: Zithromax IVPB 500 mg Route: IVPB; Infused Over: 1 hrs; Site: left hand; ph 09:30 Follow up: Response: No adverse reaction; IV Status: Completed infusion ph 08:46 Not Given (Other Intervention Used): Insulin Glargine Sub-Q 35 units Sub-Q once ph 08:46 Drug: Norvasc PO 5 mg Route: PO; ph 10:00 Follow up: Response: No adverse reaction ph Medication: 07:40 VIS not applicable for this client. kd3 Outcome: 07:04 ER care complete, transfer ordered by MD. pandey 17:26 Transferred by ground EMS [facility]. to [facility], Transfer form ph completed. X-rays sent w/ patient. 17:26 Condition: stable 17:26 Instructed on the need for transfer. 17:28 Patient left the ED. ph Signatures: Dispatcher [employer] EDDeirdre Rahman RN RN kl Anderson, Corey, MD MD cha Hall, Patricia, RN RN ph Baxter, Heather, RN RN Jannette Heath Alice ag3 Ian Gutierrez MD MD sp3 Caroline Campbell, RN RN kd3 Jolynn Hernandez, RN RN ha1 Lakshmi, Surekha as7
--- NOTE | 2022-11-05 07:05 | EDPHYS ---
Physician Documentation [facility] Name: Los Griggs Jr Age: 57 yrs Sex: Male : 1965 Arrival Date: 11/05/2022 Time: 03:34 Bed 4 Private MD: CÉSAR Physician Bienvenido Rubio HPI: 11/05 03:48 This 57 yrs old Male presents to ER via Ambulatory with complaints of Vomiting blood sp3 from lungs. 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 Patient has had 1 other episode like this where his lung bled from his MAC infection. Patient states Dr. Kidd for his pulmonary care. Patient denies any other bleeding in any other sites. He also denies headache, neck pain, chest pain, shortness of breath, abdominal pain, syncope, near syncope, rash, changes in his medication dosage, or any other signs or symptoms on ROS at this time.. 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 - Social history:: Smoking status: Patient/guardian denies using tobacco, the patient reports quitting approximately 1.5 years ago. ROS: 03:49 Constitutional: Negative for fever, chills, and weight loss, Eyes: Negative for injury, sp3 pain, redness, and discharge, ENT: Negative for injury, pain, and discharge, Neck: Negative for injury, pain, and swelling, Cardiovascular: Negative for chest pain, palpitations, and edema, Abdomen/GI: Negative for abdominal pain, nausea, vomiting, diarrhea, and constipation, MS/Extremity: Negative for injury and deformity, Skin: Negative for injury, rash, and discoloration, Neuro: Negative for headache, weakness, numbness, tingling, and seizure, Psych: Negative for depression, anxiety, suicide ideation, homicidal ideation, and hallucinations, Allergy/Immunology: Negative for hives, rash, and allergies, Endocrine: Negative for neck swelling, polydipsia, polyuria, polyphagia, and marked weight changes. 03:49 All other systems are negative. Exam: 03:49 Constitutional: This is a well developed, well nourished patient who is awake, alert, sp3 and in no acute distress. Head/Face: Normocephalic, atraumatic. Eyes: Pupils equal round and reactive to light, extra-ocular motions intact. Lids and lashes normal. Conjunctiva and sclera are non-icteric and not injected. Cornea within normal limits. Periorbital areas with no swelling, redness, or edema. Neck: Trachea midline, no thyromegaly or masses palpated, and no cervical lymphadenopathy. Supple, full range of motion without nuchal rigidity, or vertebral point tenderness. No Meningismus. Chest/axilla: Normal chest wall appearance and motion. Nontender with no deformity. No lesions are appreciated. Cardiovascular: Regular rate and rhythm with a normal S1 and S2. No gallops, murmurs, or rubs. Normal PMI, no JVD. No pulse deficits. Abdomen/GI: Soft, non-tender, with normal bowel sounds. No distension or tympany. No guarding or rebound. No evidence of tenderness throughout. Back: No spinal tenderness. No costovertebral tenderness. Full range of motion. Skin: Warm, dry with normal turgor. Normal color with no rashes, no lesions, and no evidence of cellulitis. MS/ Extremity: Pulses equal, no cyanosis. Neurovascular intact. Full, normal range of motion. Neuro: Awake and alert, GCS 15, oriented to person, place, time, and situation. Cranial nerves II-XII grossly intact. Motor strength 5/5 in all extremities. Sensory grossly intact. Cerebellar exam normal. Normal gait. Psych: Awake, alert, with orientation to person, place and time. Behavior, mood, and affect are within normal limits. 03:49 Respiratory: Patient has active cough and has ramu blood and blood-tinged sputum be expressed orally.. 04:06 ECG was reviewed by the Attending Physician. EKG demonstrates normal sinus rhythm at 84 sp3 bpm with normal intervals, nonspecific intraventricular delay, normal axis, normal axis ST segments without evidence of acute ischemia. Vital Signs: 03:45 BP 168 / 91; Pulse 82; Resp 20; Temp 98.1; Pulse Ox 98% on R/A; Weight 92.53 kg (M); kl Height 5 ft. 11 in. ; 05:00 BP 164 / 88; Pulse 74; Resp 16 S; Pulse Ox 94% on R/A; ha1 05:30 BP 166 / 80; Pulse 75; Resp 18 S; Pulse Ox 94% on R/A; ha1 06:00 BP 161 / 73; Pulse 68; Resp 18 S; Pulse Ox 96% on R/A; ha1 07:39 BP 204 / 86; Pulse 73; Resp 18; Pulse Ox 99% on R/A; Pain 0/10; kd3 08:46 BP 201 / 101; Pulse 82; Resp 18; Pulse Ox 100% on R/A; ph 10:02 BP 179 / 81; Pulse 78; Resp 18; Pulse Ox 96% on R/A; hb 12:00 BP 176 / 87; Pulse 77; Resp 18; Pulse Ox 97% on R/A; ph 14:00 BP 148 / 86; Pulse 87; Resp 22; Pulse Ox 98% on R/A; ph 16:00 BP 151 / 89; Pulse 88; Resp 18; Temp 97.9; Pulse Ox 99% on R/A; ph 03:45 Body Mass Index 28.45 (92.53 kg, 180.34 cm) kl 07:39 Pain Scale: Adult kd3 MDM: 03:47 Patient medically screened. sp3 03:50 Data reviewed: vital signs, nurses notes, old medical records, lab test result(s), EKG, sp3 radiologic studies. ED course: 57-year-old male with active pulmonary bleeding/mucus production from likely MAC infection. Patient is also on Eliquis. We will hold any Eliquis and obtain CT scan of the chest with IV contrast and full laboratory panel. Regardless of work-up, patient will need to be admitted for generalized observation at the very least. Consider emergency bronchoscopy for any worsening of his current symptoms. Currently his vital signs are normal and stable and will be appropriate for observation here at this facility. Will discuss with inpatient team once work-up is back.. 07:01 ED course: Cavitary lesion is larger. H\T\H are normal. Discussed with Dr. Kidd who sp3 recommends [place] [facility] [place].. 11/05 03:48 Order name: Basic Metabolic Panel; Complete Time: 05:14 sp3 11/05 03:48 Order name: CBC with Diff; Complete Time: 05:04 sp3 11/05 03:48 Order name: LFT's; Complete Time: 05:14 sp3 11/05 03:48 Order name: Magnesium; Complete Time: 05:14 sp3 11/05 03:48 Order name: NT PRO-BNP; Complete Time: 05:14 sp3 11/05 03:48 Order name: PT-INR; Complete Time: 05:04 sp3 11/05 03:48 Order name: Troponin HS; Complete Time: 05:14 sp3 11/05 04:59 Order name: CREATININE WHOLE BLOOD; Complete Time: 05:04 EDMS 11/05 07:49 Order name: SARS RAPID eb 11/05 08:54 Order name: Glucose, Ancillary Testing EDCO 11/05 03:48 Order name: CT Chest W/ Con sp3 11/05 03:48 Order name: EKG; Complete Time: 03:48 sp3 11/05 03:48 Order name: Cardiac monitoring; Complete Time: 03:57 sp3 11/05 03:48 Order name: EKG - Nurse/Tech; Complete Time: 03:57 sp3 11/05 03:48 Order name: IV Saline Lock; Complete Time: 04:21 sp3 11/05 03:48 Order name: Labs collected and sent; Complete Time: 04:21 sp3 11/05 03:48 Order name: O2 Sat Monitoring; Complete Time: 03:57 sp3 Administered Medications: 07:36 Drug: Famotidine IVP 20 mg Route: IVP; Site: left hand; kd3 17:28 Follow up: Response: No adverse reaction ph 07:36 Drug: Piperacillin-Tazobactam IVPB 3.375 grams Route: IVPB; Infused Over: 60 mins; kd3 Site: left hand; 08:40 Follow up: Response: No adverse reaction; IV Status: Completed infusion ph 08:23 Drug: Zithromax IVPB 500 mg Route: IVPB; Infused Over: 1 hrs; Site: left hand; ph 09:30 Follow up: Response: No adverse reaction; IV Status: Completed infusion ph 08:46 Not Given (Other Intervention Used): Insulin Glargine Sub-Q 35 units Sub-Q once ph 08:46 Drug: Norvasc PO 5 mg Route: PO; ph 10:00 Follow up: Response: No adverse reaction ph Disposition Summary: 11/05/22 07:04 Transfer Ordered Transfer Location: [facility] dannie Reason: Higher level of care dannie Condition: Fair dannie Problem: new dannie Symptoms: have improved dannie Accepting Physician: Dr. Kanika Burleson(11/05/22 17:28) ph Diagnosis - Hemoptysis dannie - Pneumonia due to Mycoplasma pneumoniae - MAC(11/05/22 07:10) [facility] Discharge Instructions: - Discharge Summary Sheet ha1 Forms: - Medication Reconciliation Form dannie - SBAR form ha1 Signatures: Dispatcher [employer] Deirdre Patrick RN RN kl Anderson, Corey, MD MD cha Hall, Patricia, RN RN Jannette Rosas Setul, MD MD sp3 Caroline Campbell RN RN kd3 Corrections: (The following items were deleted from the chart) 07:10 07:04 [address] [facility] 07:10 07:04 Pneumonia due to Mycoplasma pneumoniae [facility] 15:44 07:10 to [facility] 17:28 15:44 Dr. Kanika Burleson ph
[2022-11-05] MEDS ORDERED: PIPERACIL/TAZO 3.375 GM VIAL IV ONE (07:26)
[2022-11-05] MEDS ORDERED: NA CHLORIDE 0.9% 100 ML ONE (07:26)
[2022-11-05] MEDS ORDERED: NA CHLORIDE 0.9% 250 ML ONE (07:26)
[2022-11-05] MEDS ORDERED: FAMOTIDINE 20 MG/2 ML VIAL IV ONE (07:26)
[2022-11-05] MEDS ORDERED: AZITHROMYCIN 500 MG INJ IVPB ONE (07:26)
[2022-11-05] MEDS ORDERED: INSULIN GLARGINE 100 UNIT/ML SQ ONE (08:45)
[2022-11-05 08:53] LABS: SARS-CoV-2 Antigen Rapid Res Negative (Negative)
--- NOTE | 2022-11-05 10:18 | RAD REPORT ---
EXAM DESCRIPTION: CT - Thorax W/ Con - 11/05/2022 6:44 am TECHNIQUE: Computerized axial tomography of the chest was performed during the IV injection of iodin ated nonionic contrast. This exam was performed according to our department optimization program whic h includes automated exposure control, adjustment of the mA and/or kV according to patient size, and/ or use of iterative reconstruction technique. CLINICAL HISTORY: History of mycobacterial infection. Bleeding COMPARISON: 12/19/2017. FINDINGS: Heart and pericardium: No pericardial effusion or thickening. Thoracic aorta: No aneurysm or dissection. Pulmonary vasculature: No central filling defects are seen. Limited evaluation of distal branches. Lymph nodes: No enlarged thoracic lymph nodes. Lungs: There is again seen a left upper lobe thick-walled cavitary lesion, which appears grossly st able, measuring up to 4.0 x 3.2 x 2.7 cm. There is an anterior left lower lobe thick-walled cavitary mass, now measuring 5.0 x 2.6 x 2.9 cm, which has increased in size and has a more prominent central component compared to prior study. There are numerous bilateral solid pulmonary nodules, which have i ncreased in number in the right lung. There is slightly decreased prominence of tree-in-bud infiltrat e in the left lower lobe compared to the prior study. There are underlying centrilobular emphysematou s changes. Airways are patent. Pleural space: No effusion, thickening, or pneumothorax. Musculoskeletal structures: No acute abnormality. Upper abdominal structures: No significant abnormality. IMPRESSION: Increased size of previously seen left cavitary mass. Numerous bilateral pulmonary nodul es, which have significantly increased in number in the right lung . There are numerous persistent le ft lung nodules, with decreased tree-in-bud type opacities in the left lower lobe compared to prior s tudy. Findings are compatible with given history of mycobacterial infection. Differential diagnosis i ncludes neoplastic/metastatic process. Electronically signed by: Roberta Mcare MD 11/05/2022 6:36 AM CDT Due to temporary technical issues with the PACS/Fluency reporting system, reports are being signed by the in house radiologists without review as a courtesy to insure prompt reporting. The interpreting radiologist is fully responsible for the content of the report.
[2022-11-05 17:59] VITALS: BP 151/89; TEMP 97.9; O2SAT 99
--- NOTE | 2022-11-07 17:36 | EKG ---
Test Date: 2022-11-05 Test Time: 03:54:42 [employer]uum [employer] Person: JOSE MEASUREMENT RESULTS: Intervals: Rate: 84 NH: 182 QRSD: 98 QT: 378 QTc: 446 [place]: P: 73 NH: 182 QRS: 34 T: 87 INTERPRETIVE STATEMENTS: Normal sinus rhythm Normal ECG Compared to ECG 11/22/2020 17:44:33 T-wave abnormality no longer present Possible ischemia no longer present Prolonged QT interval no longer present Electronically Signed On 11-07-22 17:34:22 CDT by Jett Gary
== END 2022-11-05 17:28 | disposition short-term general hospital (02) ==
LOC: ER 03:34
DX: J15.7 Pneumonia due to Mycoplasma pneumoniae (principal); B96.0 Mycoplasma pneumoniae [M. pneumoniae] as the cause of diseases classified elsewhere; I25.2 Old myocardial infarction; Z79.01 Long term (current) use of anticoagulants; Z95.1 Presence of aortocoronary bypass graft; Z20.822 Contact with and (suspected) exposure to COVID-19
CPT/HCPCS: 93005; 85025; 80048; 36415; 83735; 85610; 82565; 82947; 80076; 84484; 83880; 71260; 87811; Q9967; J2543; J7050

== ENCOUNTER 2023-08-22 07:57 | Day surgery (SDC) | payer OTHER ==
[2023-08-16 15:38] LABS: Absolute Basophils 0.1 K/uL (0-0.5); Absolute Eosinophils 0.1 K/uL (0-0.5); Absolute Lymphocytes (CBC) 1.2 K/uL (0.7-4.9); Basophils % 1.2 % (0-1.3); Eosinophils % 1.7 % (0-4.4); Hematocrit 39.2 % (39.6-49.0); Hemoglobin 13.1 g/dL (13.6-17.9); Lymphocytes % 15.6 % (15.3-44.8); MCV 91.7 fL (80-100); MPV 8.9 fL (7.6-11.3); Platelets 191 thou/uL (152-406); RBC Red Blood Cell Count 4.28 M/uL (4.33-5.43)
[2023-08-16 15:45] LABS: Protime INR 1.75
--- NOTE | 2023-08-18 15:29 | EKG ---
Test Date: 2023-08-16 Test Time: 16:15:51 Library Page: RAMON MEASUREMENT RESULTS: Intervals: Rate: 70 AR: 144 QRSD: 108 QT: 450 QTc: 486 [place]: P: AR: 144 QRS: 51 T: 145 INTERPRETIVE STATEMENTS: Normal sinus rhythm ST & T wave abnormality, consider lateral ischemia Prolonged QT Abnormal ECG Compared to ECG 03/13/2023 18:55:07 ST (T wave) deviation now present Possible ischemia now present Ventricular premature complex(es) no longer present T-wave abnormality no longer present Electronically Signed On 08-18-23 15:25:37 HYPERBARIC NURSE by Jett Gary
[2023-08-22] MEDS ORDERED: LIDOCAINE 1% 20 ML MDV ONE (08:00)
[2023-08-22] MEDS ORDERED: HEPA 1000U/500MLS 2,000 UNIT/1,000 ML BAG IV ONE (08:00)
[2023-08-22] MEDS ORDERED: NA CHLORIDE 0.9% 500 ML ONE (08:33)
[2023-08-22] MEDS ORDERED: MIDAZOLAM HCL 2 MG/2 ML INJ ONE ×2 (09:43→10:48)
[2023-08-22] MEDS ORDERED: FENTANYL CITR 100 MCG/2 ML ONE (09:43)
[2023-08-22 14:21] VITALS: BP 105/85; O2SAT 98
== END 2023-08-22 14:15 | disposition home or self-care (01) ==
LOC: CCL 07:57
PROVIDERS: ATTEND Internal Medicine
DX: I65.23 Occlusion and stenosis of bilateral carotid arteries (principal); T82.856A Stenosis of peripheral vascular stent, initial encounter; I25.10 Atherosclerotic heart disease of native coronary artery without angina pectoris; I70.213 Atherosclerosis of native arteries of extremities with intermittent claudication, bilateral legs; I11.0 Hypertensive heart disease with heart failure; I50.22 Chronic systolic (congestive) heart failure; I48.91 Unspecified atrial fibrillation; E78.5 Hyperlipidemia, unspecified; E11.9 Type 2 diabetes mellitus without complications; I25.2 Old myocardial infarction; Z79.4 Long term (current) use of insulin; Z79.82 Long term (current) use of aspirin; Z95.828 Presence of other vascular implants and grafts; Z95.1 Presence of aortocoronary bypass graft; Z95.810 Presence of automatic (implantable) cardiac defibrillator; Z87.891 Personal history of nicotine dependence; Z79.899 Other long term (current) drug therapy
CPT/HCPCS: 93005; 85025; 80048; 36415; 85610; 82947; 85730; 36222; 76937; C1893; Q9967; J2001; J2250 ×2; J3010; J7040; 99152; 99153